=== PATIENT | male | born 1950 | race Caucasian/White ===

== ENCOUNTER → 2017-12-10 13:32 | Outpatient (CLI) | payer MEDICARE, MEDICAID, SELFPAY ==
[2017-12-10 15:15] LABS: AST(SGOT) 17 U/L (15-37); Alanine Aminotransfer ALT/SGPT 24 U/L (16-61); Albumin, Serum 3.7 g/dL (3.2-5.0); Alkaline Phosphatase 96 U/L (45-117); Bilirubin, Direct 0.23 mg/dL (0.00-0.30); Cholesterol 93 mg/dL (200); Globulin 2.9 g/dL (2.2-4.2); High Density Lipoprotein 49 mg/dL; Protein, Total 6.6 g/dL (6.4-8.2); Triglycerides 50 mg/dL; Very Low Density Lipoprotein 10 mg/dL (5-40)
== END ==
PROVIDERS: Visit Provider Internal Medicine Cardiovascular Disease
DX: I25.110 Atherosclerotic heart disease of native coronary artery with unstable angina pectoris (principal)
CPT/HCPCS: 36415; 80061; 80076

== ENCOUNTER 2017-12-20 02:47 | Inpatient (IN) | payer MEDICARE, MEDICAID, SELFPAY ==
[2017-12-20] VITALS (31 sets, daily range): BP systolic 95–214; BP diastolic 43–114; PULSE 75–146; RESP 12–35; TEMP 36.6–38.4; O2SAT 66–99; BMI 17.1; BMI 17.2
--- NOTE | 2017-12-20 02:50 | EKG12_ITS ---
Test Reason : SOB Blood Pressure : / mmHG Vent. Rate : 106 BPM Atrial Rate : 106 BPM P-R Int : 180 ms QRS Dur : 082 ms QT Int : 330 ms P-R-T Axes : 081 -56 073 degrees QTc Int : 438 ms Sinus tachycardia Left axis deviation Abnormal ECG Confirmed by BELKYS ABRAHAM, BAILEY ([id number]), assistant production editor CRISTO SANTOS ([id number] on 12/22/2017 1:45:08 PM Referred By: Aj Jimenez Confirmed By:BAILEY RIZVI MD
--- NOTE | 2017-12-20 02:54 | ED.DCSUM_ITS ---
- ER Visit Summary Date of Service: 12/20/17 Chief Complaint: Shortness of breath History of Present Illness: The patient is a 67 M with history of emphysema, Crohn's disease, hypertension, and GERD resents to the emergency department with shortness of breath. The patient does not on oxygen at home. He states over the past 2-3 days, has had gradually worsening shortness of breath. He does describe productive cough with sputum. He is also had fevers and chills. He states he has had chest tightness and just feels like he cannot breathe. Patient does follow with Dr. Ocampo for pulmonology. He does see Dr. Jimenez for cardiology. He does continue to smoke. He denies any recent sick contacts. He is unsure of the last time he was on steroids for his breathing. Physical Examination: Vital signs reviewed General: Well-nourished, well-developed, moderate to severe respiratory distress Head: Normocephalic, atraumatic Eyes: Pupils equal and reactive, extraocular muscles intact Neck, supple, no lymphadenopathy Heart: Regular tachycardia Respiratory: Diminished with wheezing and accessory muscle use throughout Abdomen: Soft, nontender, nondistended, no peritoneal signs Back: Nontender Extremities: Nontender, no edema, no cords Skin: Normal color no rash Neuro: Alert and oriented, no focal or lateralizing deficits Test Results: ABG shows mild hypercapnia, but normal pH. Screening labs are unremarkable. EKG shows sinus tachycardia but no acute ischemia. Chest x-ray shows chronic fibrosis. Emergency Department Course and Treatment: Patient presents with significant hypoxia. On arrival, his pulse ox was 66%. He had increased work of breathing with significant tachypnea and diminished air movement. Patient was placed immediately on BiPAP. ABG was obtained which is relatively unremarkable. There is evidence of no significant respiratory acidosis. With BiPAP and breathing treatments the patient's aeration had improved. His x-ray does not show focal infiltrate, but given his change in sputum fevers and chills the patient will be covered with Levaquin. Labs are obtained and relatively unremarkable. The patient is much more comfortable on BiPAP. At this time, he will be admitted to the ICU. Patient was discussed with the hospitalist. Treatment Plan: [] Disposition: Admit Impression: 1. Acute respiratory failure 2. COPD exacerbation This note was generated with High[employer] software. It may contain incorrect words, spelling, and punctuation that were not noted in review of the chart prior to signing ED Disposition - Plan for ED Patient: Chief Complaint: Shortness of Breath Referrals: Care Physician,No Primary [NON-STAFF] -
--- NOTE | 2017-12-20 02:54 | ED.RN ---
PT PLACED ON BIPAP
[2017-12-20] MEDS: Albuterol 2.5 MG/3 ML VIAL.NEB. INHALATION ×3 (03:04→03:06)
[2017-12-20] MEDS: Ipratropium/Albuterol Sulfate 3 ML AMPUL.NEB INHALATION ×3 (03:04→13:05)
--- NOTE | 2017-12-20 03:10 | RAD_ITS ---
STUDY: X-RAY CHEST REASON FOR EXAM: Male, 67 years old. Shortness of breath. TECHNIQUE: AP portable chest. COMPARISON: August 04, 2016. FINDINGS: The lungs are hyperinflated. Fibrosis right upper lobe and right cardiophrenic angle new since the prior study. No effusions. No pneumothorax. Normal size heart. Normal mediastinum and alo. Normal visualized pulmonary arteries. Normal visualized aortic arch and descending thoracic aorta. Normal visualized thoracic spine. Normal visualized ribs, clavicles, and shoulders. There is no demonstrated abnormality of the visualized soft tissue structures of the upper abdomen. RAD/Chest 1 View (Portable) IMPRESSION: COPD. Progression of chronic interstitial lung disease. Electronically Signed: Tanner Bronson MD at 3:30 EST , Service support ,
[2017-12-20 03:14] LABS: Absolute Lymphocyte Count 1.14 X10^3/ul (0.83-4.51); Absolute Neutrophil Count 6.4 X10^3/uL (2.0-7.7); Basophil# 0.02 X10^3/uL; Basophil% 0.2 % (0-1); Eosinophils% 1.2 % (0-5); Hematocrit 40.3 % (40-54); Hemoglobin 13.2 g/dl (13.0-16.5); Lymphocyte # 1.14 X10^3/ul (4.0); Lymphocyte % 14.1 % (19-41); Mean Corp Hgb Conc 32.8 g/gl (32-36); Mean Corpuscular Hgb 29.4 pg (27.0-32.0); Mean Corpuscular Volume 89.8 fL (80-94); Mean Platelet Vol. 10.4 fl (6.2-12.0); Monocyte# 0.45 X10^3/uL; Monocyte% 5.6 % (0-10); Neutrophil # 6.35 X10^3/uL (2.7-7.7); Neutrophil % 78.8 % (47-70); Platelet Count 159 K/mm3 (150-450); RBC Distribution Width CV 12.9 % (11.6-14.6); RBC Distribution Width SD 42.1 fl (35.1-43.9); Red Blood Count 4.49 M/mm3 (4.6-6.2); White Blood Count 8.1 K/mm3 (4.4-11.0)
[2017-12-20] MEDS: MethylPREDNISolone 125 MG/2 ML Vial IV (03:19)
[2017-12-20] MEDS: 0.9% Normal Saline 1,000 ML 150 ML IV (03:20)
[2017-12-20 03:21] LABS: Allen Test POS; Base Excess 0 mmol/L (-2 to +2); Bicarbonate 25.7 mmol/L (22-26); Blood Gas Specimen Type ART; EPAP 6; FI02 35; IPAP 12; PO2 80 mmHG (75-100); RR 12; SITE L Radial; SO2 95 % (95-99); Time Given 312; Total Carbon Dioxide 27 mmol/L; pCO2 48.7 mmHg (35-45); pH 7.33 (7.35-7.45)
[2017-12-20 03:22] LABS: POSITIVE COUNT NO; POSITIVE DIFFERENTIAL NO; POSITIVE MORPHOLOGY NO
[2017-12-20 03:28] LABS: Anion Gap 10 (5-15); BUN 26 mg/dL (7-18); BUN/Creat Ratio 14.1 RATIO (10-20); Calcium,Total 9.1 mg/dL (8.5-10.1); Chloride 101 mmol/L (98-107); Creatinine, Serum 1.85 mg/dL (0.70-1.30); EST Glomerular Filtration Rate 39 mL/min (>60); Est Glom Filt Rate - Afr Amer 47 mL/min (>60); Estimated Creatinine Clearance 25.27 ml/min; Glucose 135 mg/dL (74-106); Potassium 3.9 mmol/L (3.5-5.1); Sodium Level 139 mmol/L (136-145)
[2017-12-20 03:53] LABS: BNP,B-Type NATRIURETIC PEPTIDE 64.4 pg/mL (0-100)
[2017-12-20 04:10] LABS: Lactic Acid 2.7 mmol/L (0.4-2.0)
--- NOTE | 2017-12-20 04:19 | HP.PCM_ITS ---
Problem List (1) CKD (chronic kidney disease) stage 4, GFR 15-29 ml/min Status: Chronic Comment: Following with Dr. Chapman (2) COLD (chronic obstructive lung disease) Status: Chronic (3) Hypertension Status: Chronic (4) Nicotine abuse Status: Chronic History of Present Illness Date of Admission: 12/20/17 Chief Complaint: Acute respiratory failure The patient is a 67 year old male w/ h/o CKD IV, HTN, COPD and CAD admitted for acute respiratory failure. PT has been having SOB x 2-3 days. His SOB has been worsening. Nothing appeared to make it better or worse. His SOB is so severe that it interfered with his ADLs today. He has a productive cough. The intensity and frequency of the cough have worsened. No fever or chill. No change in weight. No sick contact. Past Medical History Past Medical History (Chronic Problems): Chronic Problems (Last Reviewed 11/25/17 @ 14:18 by Marjorie Cárdenas) Non-rheumatic tricuspid valve insufficiency (Chronic) Atherosclerosis of coronary artery of [place] heart without angina pectoris ( Chronic) Nicotine abuse (Chronic) Hypertension (Chronic) COLD (chronic obstructive lung disease) (Chronic) CKD (chronic kidney disease) stage 4, GFR 15-29 ml/min (Chronic) Following with Dr. Chapman Allergies Penicillins Adverse Reaction (Verified 11/25/17 14:18) Other Home Medications: Ambulatory Orders Medication Instructions Recorded Albuterol Aerosols [Ventolin 2.5 mg INHALATION Q4H PRN PRN 01/17/15 Aerosols] Budesonide/Formoterol 160/4.5 1 puff INHALATION DAILY 01/17/15 [Symbicort 160/4.5 Mcg Inhaler (SP)] Loperamide [Imodium] 2 mg PO DAILY 01/17/15 Tiotropium [place] [Spiriva 18 MCG] 1 puff INHALATION DAILY 08/12/16 atorvastatin 20 mg tablet 20 mg PO QDAY #30 tab 11/25/17 lisinopril 5 mg tablet 5 mg PO QDAY #30 tab 11/25/17 Mesalamine [Pentasa] 500 mg PO DAILY 12/20/17 Surgical History: - - left carpal tunnel, L ureteral stent for obstructed stone and removal 07/2013, partial bowel resection Smoking Status: Former smoker - *Family History Paternal History Items: - - Denies family history of coronary artery disease Sibling History Items: Cancer - colon, COPD Review of Systems Constitutional: Denies: Chills, Fever, Weight Change HEENT: Denies: Head Aches, Sinus Congestion, Sinus Drainage Cardiovascular: Denies: Chest Pain, Palpitations Respiratory: Reports: Cough, Shortness of Breath, Shortness of breath at rest, Sputum production, Wheezing Gastrointestinal: Denies: Abdominal Pain, Nausea, Vomiting Genitourinary: Denies: Dysuria Musculoskeletal: Denies: Joint Pain, Joint Tenderness Skin: Denies: Rash, Wounds Neurological: Denies: Numbness, Tingling, Focal weakness Psychiatric: Denies: Anxiety, Depression, Homicidal Ideations, Suicidal Ideations Hematologic/ Lymphatic: Denies: Easy Bruising, Easy Bleeding VTE Information - Inpt Only VTE Present on Admission: No VTE Mechan Device Prophylaxis: SCD's VTE Pharm Prophylaxis ordered?: Yes - Physical Exam General: Alert, Oriented x3, Cooperative HEENT: Atraumatic, PERRLA, EOMI, Normocephalic Neck: Supple, No JVD, Negative Carotid Bruits Lungs: Diminished, Rales, Short of Breath, Wheezes Cardiovascular: Regular rate, No murmurs Abdomen: Bowel Sounds Present, Soft, Non Tender Extremities: No edema, Capillary Refill Less than 3 Seconds Skin: No rashes, No breakdown Musculoskeletal: No Tenderness to Palpation of Joints or Extremities Neurological: Cranial nerves II-XII grossly intact Psych/Mental Status: Normal Affect, Appropriate Vital Signs Temp Pulse Resp BP Pulse Ox 98.0 F 106 H 26 H 167/105 H 96 12/20/17 02:47 12/20/17 03:05 12/20/17 03:05 12/20/17 03:30 12/20/17 03:30 Oxygen Flow Rate 6 Oxygen Delivery Method Bi-pap Weight: 47.4 kg Body Mass Index (BMI) 17.1 Microbiology Past 72 Hours 12/20/17 03:30 Influenza Types A,B Direct FA (EDGAR) - Final Mucosa - Nasopharyngeal Laboratory Tests Past 24 Hrs 12/20/17 12/20/17 12/20/17 02:55 02:55 02:55 WBC 8.1 RBC 4.49 L Hgb 13.2 Hct 40.3 MCV 89.8 MCH 29.4 MCHC 32.8 RDW 12.9 RDW Differential 42.1 Plt Count 159 MPV 10.4 Immature Gran % (Auto) 0.100 Neut % (Auto) 78.8 H Lymph % (Auto) 14.1 L [place] % (Auto) 5.6 Eos % (Auto) 1.2 Baso % (Auto) 0.2 Absolute Neuts (auto) 6.4 Absolute Lymphs (auto) 1.14 Total Counted Not Reportable Specimen Type Sample Site pH Bicarbonate Actual POC Total CO2 Base Excess O2 Saturation O2 % ABG pCO2 ABG pO2 Bc Test Respiration Rate O2 Delivery Device EPAP IPAP Blood Gas Notified Whom Blood Gas Notified Time Sodium 139 Potassium 3.9 Chloride 101 Carbon Dioxide 28.0 Anion Gap 10 BUN 26 H Creatinine 1.85 H Estim Creat Clear Calc 25.27 Est GFR (MDRD) Af Amer 47 L Est GFR (MDRD) Non-Af 39 L BUN/Creatinine Ratio 14.1 Glucose 135 H Lactic Acid 2.7 H Calcium 9.1 Troponin I < 0.02 B-Natriuretic Peptide 12/20/17 12/20/17 02:55 03:16 WBC RBC Hgb Hct MCV MCH MCHC RDW RDW Differential Plt Count MPV Immature Gran % (Auto) Neut % (Auto) Lymph % (Auto) [place] % (Auto) Eos % (Auto) Baso % (Auto) Absolute Neuts (auto) Absolute Lymphs (auto) Total Counted Specimen Type ART Sample Site L Radial pH 7.33 L Bicarbonate Actual 25.7 POC Total CO2 27 Base Excess 0 O2 Saturation 95 O2 % 35 ABG pCO2 48.7 H ABG pO2 80 Bc Test POS Respiration Rate 12 O2 Delivery Device Bi / C PAP EPAP 6 IPAP 12 Blood Gas Notified Whom ED MD Blood Gas Notified Time 312 Sodium Potassium Chloride Carbon Dioxide Anion Gap BUN Creatinine Estim Creat Clear Calc Est GFR (MDRD) Af Amer Est GFR (MDRD) Non-Af BUN/Creatinine Ratio Glucose Lactic Acid Calcium Troponin I B-Natriuretic Peptide 64.4 Assessment/Plan 67 year old male w/ h/o CKD IV, HTN, COPD and CAD admitted for acute respiratory failure. 1) Acute respiratory failure secondary to COPD exacerbation.: Currently on bipap. C/w with bipap. Will start solumedrol and bronchodilators. C/w levaquin. Chest xray unremarkable No leukocytosis. Cultures pending. Consult pulmonary. 2) CKD IV: C/w supportive care. Will renal dose meds. Avoid nephrotoxic drugs. Surveillance labs 3) Chronic issues: CAD and HTN: Resume home meds. Monitor. 4) Prophylaxis: SCD / heparin.
--- NOTE | 2017-12-20 04:22 | ED.RN ---
lab called with critical lab results. lactic acid 2.7. Dr. Lopez made aware. no new orders at this time
--- NOTE | 2017-12-20 07:02 | CON.PCM_ITS ---
Reason for Consult Date of Consultation: 12/20/17 Reason for Consultation: COPD exacerbation History of Present Illness: The patient is a 67-year-old male, with a history as outlined below, who presented to the emergency department on December 20 with complaints of shortness of breath, that was progressive in nature over 3 days, along with a productive cough. The patient does have end-stage COPD, based upon pulmonary function testing last completed in October 2015. He currently follows with Dr. Ocampo on an outpatient basis. The patient's last FEV1 was noted to be less than 1L (30% of predicted). He does have dynamic hyperinflation and air- trapping. Surface echocardiogram last completed in December 2014 revealed normal LV size with an ejection fraction of 60%. Pulmonary artery systolic pressure at that time was estimated to be 41 mmHg. The patient was last seen in the pulmonary medicine clinic in May 2016. He subsequently no showed for a follow-up appointment in August 2016. The patient also has a history of coronary artery disease, for which she follows with Dr. Jimenez on an outpatient basis. The patient states that he was lost to follow-up with Dr. Ocampo, as he stated that he did not like having to undergo stress testing that was ordered by him. Therefore, he decided to stop following with him. He does currently follow with Dr. Rodríguez. He states that he is on a triple therapy inhaler regimen with Symbicort and Spiriva. However, he ran out of his Symbicort 5 days ago. On presentation to the emergency department, the patient was noted to be afebrile, tachycardic and tachypneic. He was reportedly hypoxic, requiring high flow supplemental oxygen and eventual BiPAP therapy. The patient was also exceedingly hypertensive with a blood pressure documented to be 214/114. Laboratory evaluation revealed no evidence of a leukocytosis. Chemistry profile was notable only for chronic kidney disease with a creatinine 1.85. Serum lactate was mildly elevated 2.7. Both BNP and troponin were negative. Plain film chest x-ray showed no acute infiltrative process, with the exception of hyperinflated lung p[place]co. The patient was given aerosol treatments, steroids and antibiotics. Due to the use of noninvasive positive pressure ventilation, the patient was transferred to the medical intensive care unit for ongoing management. Past Medical History Past Medical History (Chronic Problems): Chronic Problems (Last Reviewed 11/25/17 @ 14:18 by Marjorie Kilner) Non-rheumatic tricuspid valve insufficiency (Chronic) Atherosclerosis of coronary artery of [place] heart without angina pectoris ( Chronic) Nicotine abuse (Chronic) Hypertension (Chronic) COLD (chronic obstructive lung disease) (Chronic) CKD (chronic kidney disease) stage 4, GFR 15-29 ml/min (Chronic) Following with Dr. Chapman Allergies Penicillins Adverse Reaction (Verified 11/25/17 14:18) Other Home Medications: Ambulatory Orders Medication Instructions Recorded Albuterol Aerosols [Ventolin 2.5 mg INHALATION Q4H PRN PRN 01/17/15 Aerosols] Budesonide/Formoterol 160/4.5 1 puff INHALATION DAILY 01/17/15 [Symbicort 160/4.5 Mcg Inhaler (SP)] Loperamide [Imodium] 2 mg PO DAILY 01/17/15 Tiotropium [place] [Spiriva 18 MCG] 1 puff INHALATION DAILY 08/12/16 atorvastatin 20 mg tablet 20 mg PO QDAY #30 tab 11/25/17 lisinopril 5 mg tablet 5 mg PO QDAY #30 tab 11/25/17 Mesalamine [Pentasa] 500 mg PO DAILY 12/20/17 Surgical History: - - left carpal tunnel, L ureteral stent for obstructed stone and removal 07/2013, partial bowel resection Smoking Status: Former smoker - *Family History Paternal History Items: - - Denies family history of coronary artery disease Sibling History Items: Cancer - colon, COPD Review of Systems Constitutional: Denies: Chills, Fever, Night Sweats Eyes: Denies: Blurred vision, Double vision HEENT: Denies: Head Aches, Sinus Congestion, Sinus Drainage Cardiovascular: Denies: Chest Pain, Palpitations Respiratory: Reports: Cough, Shortness of Breath, Sputum production Gastrointestinal: Denies: Abdominal Pain, Nausea, Vomiting Genitourinary: Denies: Dysuria Musculoskeletal: Denies: Joint Pain, Joint Tenderness Skin: Denies: Rash, Wounds Neurological: Denies: Numbness, Tingling, Focal weakness Psychiatric: Denies: Anxiety, Depression, Homicidal Ideations, Suicidal Ideations Hematologic/ Lymphatic: Denies: Easy Bruising, Easy Bleeding Objective: The patient's most recent lab work, culture data and imaging studies have all been personally reviewed. Rapid influenza screen was negative. Blood and sputum cultures are pending. - Physical Exam General: Alert, Cooperative, No apparent distress HEENT: Atraumatic, PERRLA, Normocephalic Oral: Moist Mucosa, No Gingival or Mucosal Lesions/ Ulcerations Neck: Supple, No Nodes, Trachea Midline Lungs: No rhonchi, No rales, Diminished, Wheezes Cardiovascular: Normal S1, Normal S2, No murmurs, No rub noted, No Gallop, Tachycardic Abdomen: Bowel Sounds Present, Soft, Non Tender Extremities: No cyanosis, No edema, Clubbing Skin: No rashes, No breakdown Musculoskeletal: No Tenderness to Palpation of Joints or Extremities, Cachexia, Muscle Wasting Lymphatic: No Cervical, Supraclavicular, or Inguinal Adenopathy Neurological: Neuro grossly intact Psych/Mental Status: Normal Affect, Appropriate Vital Signs Temp Pulse Resp BP Pulse Ox 101.1 F H 109 H 16 149/84 H 96 12/20/17 06:00 12/20/17 06:41 12/20/17 06:41 12/20/17 06:00 12/20/17 06:41 Oxygen Flow Rate 2 Oxygen Delivery Method Nasal Cannula Weight: 104 lb 15.04 oz Body Mass Index (BMI) 17.2 Intake and Output for Last 24 Hours 12/18/17 12/19/17 12/20/17 23:59 23:59 23:59 Intake Total 167 / 167 Balance 167 / 167 Laboratory Tests Past 24 Hrs 12/20/17 04:50 MRSA (PCR) Pending Labs (Last 48 Hours) 12/20/17 12/20/17 12/20/17 02:55 02:55 02:55 WBC 8.1 RBC 4.49 L Hgb 13.2 Hct 40.3 MCV 89.8 MCH 29.4 MCHC 32.8 RDW 12.9 RDW Differential 42.1 Plt Count 159 MPV 10.4 Immature Gran % (Auto) 0.100 Neut % (Auto) 78.8 H Lymph % (Auto) 14.1 L [place] % (Auto) 5.6 Eos % (Auto) 1.2 Baso % (Auto) 0.2 Absolute Neuts (auto) 6.4 Absolute Lymphs (auto) 1.14 Total Counted Not Reportable Specimen Type Sample Site pH Bicarbonate Actual POC Total CO2 Base Excess O2 Saturation O2 % ABG pCO2 ABG pO2 Bc Test Respiration Rate O2 Delivery Device EPAP IPAP Blood Gas Notified Whom Blood Gas Notified Time Sodium 139 Potassium 3.9 Chloride 101 Carbon Dioxide 28.0 Anion Gap 10 BUN 26 H Creatinine 1.85 H Estim Creat Clear Calc 25.27 Est GFR (MDRD) Af Amer 47 L Est GFR (MDRD) Non-Af 39 L BUN/Creatinine Ratio 14.1 Glucose 135 H Lactic Acid 2.7 H Calcium 9.1 Troponin I < 0.02 B-Natriuretic Peptide MRSA (PCR) 12/20/17 12/20/17 12/20/17 02:55 03:16 04:50 WBC RBC Hgb Hct MCV MCH MCHC RDW RDW Differential Plt Count MPV Immature Gran % (Auto) Neut % (Auto) Lymph % (Auto) [place] % (Auto) Eos % (Auto) Baso % (Auto) Absolute Neuts (auto) Absolute Lymphs (auto) Total Counted Specimen Type ART Sample Site L Radial pH 7.33 L Bicarbonate Actual 25.7 POC Total CO2 27 Base Excess 0 O2 Saturation 95 O2 % 35 ABG pCO2 48.7 H ABG pO2 80 Bc Test POS Respiration Rate 12 O2 Delivery Device Bi / C PAP EPAP 6 IPAP 12 Blood Gas Notified Whom ED Blood Gas Notified Time 312 Sodium Potassium Chloride Carbon Dioxide Anion Gap BUN Creatinine Estim Creat Clear Calc Est GFR (MDRD) Af Amer Est GFR (MDRD) Non-Af BUN/Creatinine Ratio Glucose Lactic Acid Calcium Troponin I B-Natriuretic Peptide 64.4 MRSA (PCR) Pending Microbiology 12/20/17 03:30 Mucosa - Nasopharyngeal Influenza Types A,B Direct FA (EDGAR) - Final Clinical Impression(s) from Imaging Studies Chest X-Ray 12/20/17 03:10 IMPRESSION: COPD. Progression of chronic interstitial lung disease. Electronically Signed: Tanner Bronson MD at 3:30 EST , Service support , Assessment/Plan RECOMMENDATIONS: 1. Continue scheduled aerosol treatments 2. Wean supplemental oxygen to maintain saturations at or above 90% 3. Continue antibiotics and steroids 4. Encourage incentive spirometer use and mobilize patient as tolerated 5. Perform walking oximetry study prior to consideration for discharge from the hospital. 6. Obtain and send a full respiratory viral panel IMPRESSIONS: 1. Acute hypoxemic respiratory failure due to COPD with exacerbation Unclear etiology for the patient's exacerbation. He does not have what appears to be an acute infiltrative process on chest imaging. However, antibiotics will be continued pending finalized sputum culture results. We will plan to check a full respiratory viral panel. The patient does admit that he has been out of his maintenance inhaler medications ?5 days, which may have led to his current clinical state. We will plan to continue scheduled aerosol treatments along with IV steroids. If the patient does well over the next 24 hours, he will be transitioned to prednisone by mouth. Wean supplemental oxygen as tolerated. The patient will undoubtedly need to follow-up in the pulmonary medicine clinic, as he has not been seen by Dr. Ocampo since 2016. 2. Chronic kidney disease The patient's creatinine appears to be baseline. Urine output is appropriate. No indication for renal replacement therapy at this time. 3. Coronary artery disease/Crohn's disease/hypertension Complicates care, management, recovery and prognosis. Continue home medications as indicated. This note was generated with [employer] dictation software. It may contain incorrect words, spelling, and punctuation that were not noted in checking the note before signing. DISPOSITION: The patient is medically stable for transfer out of the intensive care unit. Code Visit Inpatient E&M: 30119 Init Hosp L3
[2017-12-20 07:06] LABS: Reflex Lactate? Y
--- NOTE | 2017-12-20 07:38 | PCM.PN.HOSP ---
Subjective: 67-year-old gentleman with past medical history significant for CKD stage IV hypertension COPD admitted with progressive shortness of breath and assessment of acute hypoxic respiratory failure secondary to COPD exacerbation made started on BiPAP admitted to the intensive care unit Objective: GENERAL: cooperative HEENT: neck is supple, normal thyroid, CHEST: Diminished to auscultation bilaterally, HEART: Regular S1 S2, ABDOMEN: soft, non-tender, normoactive bowel sounds, RECTAL: deferred EXTREMITIES: Skin is cyanotic [employer]: Awake, without lateralizing signs SKIN: Above Vitals/I&O's: Vital Signs Temp Pulse Resp BP Pulse Ox 101.1 F H 109 H 16 149/84 H 96 12/20/17 06:00 12/20/17 06:41 12/20/17 06:41 12/20/17 06:00 12/20/17 06:41 Oxygen Flow Rate 2 Oxygen Delivery Method Nasal Cannula Weight: 47.6 kg Body Mass Index (BMI) 17.2 Intake and Output for Last 24 Hours 12/18/17 12/19/17 12/20/17 23:59 23:59 23:59 Intake Total 167 / 167 Balance 167 / 167 Laboratory Results 12/20/17 04:50: MRSA (PCR) Pending 12/20/17 07:30: Lactic Acid Pending Current Medications Albuterol Sulfate (Ventolin Aerosols) 2.5 mg INHALATION Q2H PRN PRN PRN Reason: SHORTNESS OF BREATH Albuterol/Ipratropium (Duoneb) 3 ml INHALATION Q6HWA.RT [facility] Last Admin: 12/20/17 06:39 Dose: 3 ml Atorvastatin Calcium (Lipitor) 20 mg PO QHS [facility] Heparin Sodium (Porcine) (Heparin Na) 5,000 unit SC Q8 [facility] Last Admin: 12/20/17 06:21 Dose: 5,000 u Levofloxacin (Levaquin) 250 mg in 50 mls @ 50 mls/hr IV Q24 [facility] Influenza Virus Vaccine Quadrival (Fluarix/Fluzone) 0.5 ml IM .ONCE ONE Stop: 12/20/17 10:01 Lisinopril (Zestril) 5 mg PO DAILY [facility] Loperamide HCl (Imodium) 2 mg PO DAILY [facility] Mesalamine (Pentasa) 500 mg PO DAILY [facility] Methylprednisolone (Solu-Medrol) 40 mg IV Q8 [facility] Assessment/Plan 67-year-old gentleman with past medical history significant for CKD stage IV hypertension COPD admitted with progressive shortness of breath and assessment of acute hypoxic respiratory failure secondary to COPD exacerbation made started on BiPAP admitted to the intensive care unit 1. Acute hypoxic and hypercapnic respiratory failure secondary to COPD with exacerbation admitted to the intensive care unit with consultation placed a pulmonary medicine patient placed on noninvasive ventilation BiPAP in addition to bronchodilator treatment steroid as well as antibiotics 2. CKD stage IV 3. Hypertension-blood pressure controlled, home medications continued with dose adjustment as needed 4. CAD per history 5. Generalized osteoarthritis 6. DVT prophylaxis SC heparin
--- NOTE | 2017-12-20 08:30 | CPS ---
Pt refuses to do PEP.
[2017-12-20] MEDS: Mesalamine 1.2 GM Tablet 2.4 GM PO (11:02)
[2017-12-20] MEDS: Lisinopril 5 MG Tablet PO (11:02)
[2017-12-20] MEDS: levoFLOXacin 250 MG Tablet PO (11:03)
--- NOTE | 2017-12-20 12:21 | CASEMGMT ---
NORMA CM Assessment. DC Plan home. Pt states he lives with friend. Reports being independent, drives and is able to pay for his prescriptions. -pt had appt today with dr Marcos RNCM called to cancel. -does not wear Home O2. Presently is on 2L NC and 98%. Jessie SEGOVIAN RN ACM
--- NOTE | 2017-12-20 19:22 | CPS ---
Pt continues to refuse to do PEP Therapy. States its to strong for his lungs.
[2017-12-20] MEDS: Atorvastatin Calcium 20 MG Tablet PO (20:50)
[2017-12-20 23:12] LABS: M R Staph aureus DNA By PCR Negative (Negative); Probe Check PASS; Specimen Processing Control PASS
[2017-12-21] VITALS (10 sets, daily range): BP systolic 113–143; BP diastolic 61–76; PULSE 82–99; RESP 16–20; TEMP 36.8–37.5; O2SAT 88–98
[2017-12-21] MEDS: Ipratropium/Albuterol Sulfate 3 ML AMPUL.NEB INHALATION ×4 (00:02→18:40)
[2017-12-21] MEDS: levoFLOXacin 250 MG Tablet PO (05:40)
--- NOTE | 2017-12-21 06:32 | PN_ITS ---
Subjective: The patient was seen and examined at the bedside this morning. Events from the last 24 hours have been reviewed. The patient is currently afebrile, hemodynamically stable and maintaining appropriate oxygen saturations on 2 L/ min via nasal cannula. Shortness of breath has improved. However, cough persists. Objective: The patient's most recent lab work, culture data and imaging studies have all been personally reviewed. Respiratory viral panel was negative. Blood cultures are pending. Sputum culture is pending. General: Alert, Cooperative, No apparent distress HEENT: Atraumatic, PERRLA, Normocephalic Oral: Moist Mucosa, No Gingival or Mucosal Lesions/ Ulcerations Neck: Supple, No Nodes, Trachea Midline Lungs: No rhonchi, No wheeze, No rales, Diminished, - - Increased AP diameter Cardiovascular: Regular rate, Regular Rhythm, Normal S1, Normal S2, No murmurs Abdomen: Bowel Sounds Present, Soft, Non Tender, Non-Distended Extremities: No cyanosis, No edema, Clubbing Skin: No rashes, No breakdown Musculoskeletal: No Tenderness to Palpation of Joints or Extremities, Cachexia, Muscle Wasting Lymphatic: No Cervical, Supraclavicular, or Inguinal Adenopathy Neurological: Neuro grossly intact Psych/Mental Status: Normal Affect, Appropriate Vital Signs Temp Pulse Resp BP Pulse Ox 98.2 F 84 19 H 113/66 98 12/21/17 01:45 12/21/17 03:00 12/21/17 01:45 12/21/17 01:45 12/21/17 01:51 Oxygen Flow Rate 2 Oxygen Delivery Method Nasal Cannula Weight: 104 lb 15.04 oz Body Mass Index (BMI) 17.2 Intake and Output for Last 24 Hours 12/19/17 12/20/17 12/21/17 23:59 23:59 23:59 Intake Total 1297 / 1297 120 / 120 Output Total 425 / 425 Balance 872 / 872 120 / 120 Labs (Last 48 Hours) 12/20/17 12/20/17 04:50 07:30 Lactic Acid 1.0 MRSA (PCR) Negative Microbiology 12/20/17 06:00 Sputum, Expectorated/Coughed Gram Stain - Final 12/20/17 07:09 Mucosa - Nose Respiratory Panel (PCR) - Final Labs (Last 48 Hours) 12/20/17 12/20/17 12/20/17 02:55 02:55 02:55 WBC 8.1 RBC 4.49 L Hgb 13.2 Hct 40.3 MCV 89.8 MCH 29.4 MCHC 32.8 RDW 12.9 RDW Differential 42.1 Plt Count 159 MPV 10.4 Immature Gran % (Auto) 0.100 Neut % (Auto) 78.8 H Lymph % (Auto) 14.1 L [place] % (Auto) 5.6 Eos % (Auto) 1.2 Baso % (Auto) 0.2 Absolute Neuts (auto) 6.4 Absolute Lymphs (auto) 1.14 Total Counted Not Reportable Specimen Type Sample Site pH Bicarbonate Actual POC Total CO2 Base Excess O2 Saturation O2 % ABG pCO2 ABG pO2 Bc Test Respiration Rate O2 Delivery Device EPAP IPAP Blood Gas Notified Whom Blood Gas Notified Time Sodium 139 Potassium 3.9 Chloride 101 Carbon Dioxide 28.0 Anion Gap 10 BUN 26 H Creatinine 1.85 H Estim Creat Clear Calc 25.27 Est GFR (MDRD) Af Amer 47 L Est GFR (MDRD) Non-Af 39 L BUN/Creatinine Ratio 14.1 Glucose 135 H Lactic Acid 2.7 H Calcium 9.1 Troponin I < 0.02 B-Natriuretic Peptide MRSA (PCR) 12/20/17 12/20/17 12/20/17 02:55 03:16 04:50 WBC RBC Hgb Hct MCV MCH MCHC RDW RDW Differential Plt Count MPV Immature Gran % (Auto) Neut % (Auto) Lymph % (Auto) [place] % (Auto) Eos % (Auto) Baso % (Auto) Absolute Neuts (auto) Absolute Lymphs (auto) Total Counted Specimen Type ART Sample Site L Radial pH 7.33 L Bicarbonate Actual 25.7 POC Total CO2 27 Base Excess 0 O2 Saturation 95 O2 % 35 ABG pCO2 48.7 H ABG pO2 80 Bc Test POS Respiration Rate 12 O2 Delivery Device Bi / C PAP EPAP 6 IPAP 12 Blood Gas Notified Whom ED MD Blood Gas Notified Time 312 Sodium Potassium Chloride Carbon Dioxide Anion Gap BUN Creatinine Estim Creat Clear Calc Est GFR (MDRD) Af Amer Est GFR (MDRD) Non-Af BUN/Creatinine Ratio Glucose Lactic Acid Calcium Troponin I B-Natriuretic Peptide 64.4 MRSA (PCR) Negative 12/20/17 07:30 WBC RBC Hgb Hct MCV MCH MCHC RDW RDW Differential Plt Count MPV Immature Gran % (Auto) Neut % (Auto) Lymph % (Auto) [place] % (Auto) Eos % (Auto) Baso % (Auto) Absolute Neuts (auto) Absolute Lymphs (auto) Total Counted Specimen Type Sample Site pH Bicarbonate Actual POC Total CO2 Base Excess O2 Saturation O2 % ABG pCO2 ABG pO2 Bc Test Respiration Rate O2 Delivery Device EPAP IPAP Blood Gas Notified Whom Blood Gas Notified Time Sodium Potassium Chloride Carbon Dioxide Anion Gap BUN Creatinine Estim Creat Clear Calc Est GFR (MDRD) Af Amer Est GFR (MDRD) Non-Af BUN/Creatinine Ratio Glucose Lactic Acid 1.0 Calcium Troponin I B-Natriuretic Peptide MRSA (PCR) Microbiology 12/20/17 06:00 Sputum, Expectorated/Coughed Gram Stain - Final 12/20/17 07:09 Mucosa - Nose Respiratory Panel (PCR) - Final 12/20/17 03:30 Mucosa - Nasopharyngeal Influenza Types A,B Direct FA (EDGAR) - Final Clinical Impression(s) from Imaging Studies Chest X-Ray 12/20/17 03:10 IMPRESSION: COPD. Progression of chronic interstitial lung disease. Electronically Signed: Tanner Bronson MD at 3:30 EST , Service support , Assessment/Plan RECOMMENDATIONS: 1. Continue scheduled aerosol treatments 2. Wean supplemental oxygen to maintain saturations at or above 90% 3. Continue antibiotics and steroids 4. Encourage incentive spirometer use and mobilize patient as tolerated 5. Perform walking oximetry study prior to consideration for discharge from the hospital. 6. Close outpatient pulmonary follow-up is recommended. IMPRESSIONS: 1. Acute hypoxemic respiratory failure due to COPD with exacerbation Unclear etiology for the patient's exacerbation. He does not have what appears to be an acute infiltrative process on chest imaging. However, antibiotics will be continued pending finalized sputum culture results. The patient does admit that he has been out of his maintenance inhaler medications ?5 days, which may have led to his current clinical state. We will plan to continue scheduled aerosol treatments along with steroids. Wean supplemental oxygen as tolerated. The patient will undoubtedly need to follow-up in the pulmonary medicine clinic, as he has not been seen by Dr. Ocampo since 2016. Perform walking oximetry study prior to consideration for discharge from the hospital. The patient will require refills of his baseline inhalers upon discharge, including Symbicort and Spiriva. 2. Chronic kidney disease The patient's creatinine appears to be baseline. Urine output is appropriate. No indication for renal replacement therapy at this time. 3. Coronary artery disease/Crohn's disease/hypertension Complicates care, management, recovery and prognosis. Continue home medications as indicated. This note was generated with [employer] dictation software. It may contain incorrect words, spelling, and punctuation that were not noted in checking the note before signing. Code Visit Inpatient E&M: 05618 Subs Hosp L2
--- NOTE | 2017-12-21 07:42 | PCM.PN.HOSP ---
Subjective: Seen clinical condition continues to improve he however has persistent cough Objective: GENERAL: cooperative HEENT: neck is supple, normal thyroid, CHEST: Diminished to auscultation bilaterally, HEART: Regular S1 S2, ABDOMEN: soft, non-tender, normoactive bowel sounds, RECTAL: deferred EXTREMITIES: Skin is cyanotic [employer]ER: Awake, without lateralizing signs SKIN: Above Vitals/I&O's: Vital Signs Temp Pulse Resp BP Pulse Ox 98.2 F 84 19 H 113/66 98 12/21/17 01:45 12/21/17 03:00 12/21/17 01:45 12/21/17 01:45 12/21/17 01:51 Oxygen Flow Rate 2 Oxygen Delivery Method Nasal Cannula Weight: 47.6 kg Body Mass Index (BMI) 17.2 Intake and Output for Last 24 Hours 12/19/17 12/20/17 12/21/17 23:59 23:59 23:59 Intake Total 1297 / 1297 120 / 120 Output Total 425 / 425 Balance 872 / 872 120 / 120 Microbiology Past 72 Hours 12/20/17 06:00 Sputum, Expectorated/Coughed Gram Stain - Final 12/20/17 07:09 Mucosa - Nose Respiratory Panel (PCR) - Final Laboratory Results 12/20/17 04:50: MRSA (PCR) Negative 12/20/17 07:30: Lactic Acid 1.0 Current Medications Albuterol Sulfate (Ventolin Aerosols) 2.5 mg INHALATION Q2H PRN PRN PRN Reason: SHORTNESS OF BREATH Albuterol/Ipratropium (Duoneb) 3 ml INHALATION Q6HWA.RT [facility] Last Admin: 12/21/17 06:51 Dose: 3 ml Atorvastatin Calcium (Lipitor) 20 mg PO QHS [facility] Last Admin: 12/20/17 20:50 Dose: 20 mg Heparin Sodium (Porcine) (Heparin Na) 5,000 unit SC Q8 [facility] Last Admin: 12/21/17 05:40 Dose: 5,000 u Levofloxacin (Levaquin) 250 mg PO DAILY@0600 [facility] Last Admin: 12/21/17 05:40 Dose: 250 mg Lisinopril (Zestril) 5 mg PO DAILY [facility] Last Admin: 12/20/17 11:02 Dose: 5 mg Loperamide HCl (Imodium) 2 mg PO 4X/DAY PRN PRN PRN Reason: DIARRHEA/LOOSE STOOLS Mesalamine (Lialda) 2.4 gm PO DAILY [facility] Last Admin: 12/20/17 11:02 Dose: 2.4 gm Methylprednisolone (Solu-Medrol) 40 mg IV Q8 [facility] Last Admin: 12/21/17 05:40 Dose: 40 mg Nutritional Formula (Lactose Free) (Ensure Enlive) 120 ml PO 4X/DAY [facility] Last Admin: 12/20/17 20:50 Dose: Not Given Sodium Chloride () 5 - 30 ml IV UD PRN PRN Reason: SALINE FLUSH Assessment/Plan 67-year-old gentleman with past medical history significant for CKD stage IV hypertension COPD admitted with progressive shortness of breath and assessment of acute hypoxic respiratory failure secondary to COPD exacerbation made started on BiPAP admitted to the intensive care unit 1. Acute hypoxic and hypercapnic respiratory failure secondary to COPD with exacerbation admitted to the intensive care unit with consultation placed a pulmonary medicine patient placed on noninvasive ventilation BiPAP in addition to bronchodilator treatment steroid as well as antibiotics; did adjust doses of steroids 2. CKD stage III 3. Hypertension-blood pressure controlled, home medications continued with dose adjustment as needed 4. CAD per history 5. Generalized osteoarthritis 6. DVT prophylaxis SC heparin Code Visit Inpatient E&M: 52637 Subs Hosp L2
--- NOTE | 2017-12-21 07:46 | PN_ITS ---
Subjective: Seen clinical condition continues to improve he however has persistent cough Objective: GENERAL: cooperative HEENT: neck is supple, normal thyroid, CHEST: Diminished to auscultation bilaterally, HEART: Regular S1 S2, ABDOMEN: soft, non-tender, normoactive bowel sounds, RECTAL: deferred EXTREMITIES: Skin is cyanotic MANAGER TERMINAL: Awake, without lateralizing signs SKIN: Above Vitals/I&O's: Vital Signs Temp Pulse Resp BP Pulse Ox 98.2 F 84 19 H 113/66 98 12/21/17 01:45 12/21/17 03:00 12/21/17 01:45 12/21/17 01:45 12/21/17 01:51 Oxygen Flow Rate 2 Oxygen Delivery Method Nasal Cannula Weight: 47.6 kg Body Mass Index (BMI) 17.2 Intake and Output for Last 24 Hours 12/19/17 12/20/17 12/21/17 23:59 23:59 23:59 Intake Total 1297 / 1297 120 / 120 Output Total 425 / 425 Balance 872 / 872 120 / 120 Microbiology Past 72 Hours 12/20/17 06:00 Sputum, Expectorated/Coughed Gram Stain - Final 12/20/17 07:09 Mucosa - Nose Respiratory Panel (PCR) - Final Laboratory Results 12/20/17 04:50: MRSA (PCR) Negative 12/20/17 07:30: Lactic Acid 1.0 Current Medications Albuterol Sulfate (Ventolin Aerosols) 2.5 mg INHALATION Q2H PRN PRN PRN Reason: SHORTNESS OF BREATH Albuterol/Ipratropium (Duoneb) 3 ml INHALATION Q6HWA.RT [facility] Last Admin: 12/21/17 06:51 Dose: 3 ml Atorvastatin Calcium (Lipitor) 20 mg PO QHS [facility] Last Admin: 12/20/17 20:50 Dose: 20 mg Heparin Sodium (Porcine) (Heparin Na) 5,000 unit SC Q8 [facility] Last Admin: 12/21/17 05:40 Dose: 5,000 u Levofloxacin (Levaquin) 250 mg PO DAILY@0600 [facility] Last Admin: 12/21/17 05:40 Dose: 250 mg Lisinopril (Zestril) 5 mg PO DAILY [facility] Last Admin: 12/20/17 11:02 Dose: 5 mg Loperamide HCl (Imodium) 2 mg PO 4X/DAY PRN PRN PRN Reason: DIARRHEA/LOOSE STOOLS Mesalamine (Lialda) 2.4 gm PO DAILY [facility] Last Admin: 12/20/17 11:02 Dose: 2.4 gm Methylprednisolone (Solu-Medrol) 40 mg IV Q8 [facility] Last Admin: 12/21/17 05:40 Dose: 40 mg Nutritional Formula (Lactose Free) (Ensure Enlive) 120 ml PO 4X/DAY [facility] Last Admin: 12/20/17 20:50 Dose: Not Given Sodium Chloride () 5 - 30 ml IV UD PRN PRN Reason: SALINE FLUSH Assessment/Plan 67-year-old gentleman with past medical history significant for CKD stage IV hypertension COPD admitted with progressive shortness of breath and assessment of acute hypoxic respiratory failure secondary to COPD exacerbation made started on BiPAP admitted to the intensive care unit 1. Acute hypoxic and hypercapnic respiratory failure secondary to COPD with exacerbation admitted to the intensive care unit with consultation placed a pulmonary medicine patient placed on noninvasive ventilation BiPAP in addition to bronchodilator treatment steroid as well as antibiotics; did adjust doses of steroids 2. CKD stage III 3. Hypertension-blood pressure controlled, home medications continued with dose adjustment as needed 4. CAD per history 5. Generalized osteoarthritis 6. DVT prophylaxis SC heparin Code Visit Inpatient E&M: 30196 Subs Hosp L2
--- NOTE | 2017-12-21 09:22 | CPS ---
PT CONTINUES TO REFUSE TO USE THE PEP. SAYS IT'S TOO HARD ON MY LUNGS
--- NOTE | 2017-12-21 09:23 | CPS ---
PT RESUSES TO USE THE PEP
--- NOTE | 2017-12-21 09:24 | CPS ---
PT STILL REFUSING TO USE PEP
[2017-12-21] MEDS: Lisinopril 5 MG Tablet PO (09:38)
[2017-12-21] MEDS: 0.9% NaCl Peripheral Flush Adult/Peds IV (09:38)
[2017-12-21] MEDS: Mesalamine 1.2 GM Tablet 2.4 GM PO (09:39)
[2017-12-21 09:51] LABS: Hematocrit 32.9 % (40-54); Hemoglobin 10.9 g/dl (13.0-16.5); Mean Corp Hgb Conc 33.1 g/gl (32-36); Mean Corpuscular Hgb 29.5 pg (27.0-32.0); Mean Corpuscular Volume 89.2 fL (80-94); Mean Platelet Vol. 10.8 fl (6.2-12.0); Platelet Count 117 K/mm3 (150-450); RBC Distribution Width SD 42.6 fl (35.1-43.9); Red Blood Count 3.69 M/mm3 (4.6-6.2)
[2017-12-21 09:58] LABS: Scan Indicated on CBC? Y/N NO
[2017-12-21 09:59] LABS: Anion Gap 10 (5-15); BUN 39 mg/dL (7-18); BUN/Creat Ratio 19.4 RATIO (10-20); Calcium,Total 8.7 mg/dL (8.5-10.1); Chloride 102 mmol/L (98-107); Creatinine, Serum 2.01 mg/dL (0.70-1.30); EST Glomerular Filtration Rate 35 mL/min (>60); Est Glom Filt Rate - Afr Amer 43 mL/min (>60); Estimated Creatinine Clearance 23.35 ml/min; Glucose 230 mg/dL (74-106); Magnesium 1.8 mg/dL (1.6-2.6); Potassium 4.1 mmol/L (3.5-5.1); Sodium Level 138 mmol/L (136-145)
[2017-12-21] MEDS: Atorvastatin Calcium 20 MG Tablet PO (21:05)
[2017-12-22] MEDS: Albuterol 2.5 MG/3 ML VIAL.NEB. INHALATION (01:03)
[2017-12-22 01:04] VITALS: PULSE 94; RESP 20
[2017-12-22 01:37] VITALS: BP 147/96; PULSE 101; RESP 18; TEMP 37.2; O2SAT 92
[2017-12-22] MEDS: levoFLOXacin 250 MG Tablet PO (05:43)
[2017-12-22] MEDS: 0.9% NaCl Peripheral Flush Adult/Peds IV (05:49)
--- NOTE | 2017-12-22 06:20 | PCM.PROGNOTE ---
Patient Problems: Active and Suspected Problems (Last Reviewed 11/25/17 @ 14:18 by Marjorie Cárdenas) COPD with acute exacerbation (Acute) Subjective: The patient was seen and examined at the bedside this morning. Events from the last 24 hours have been reviewed. The patient is currently afebrile, hemodynamically stable and maintaining appropriate oxygen saturations on room air. Cough continues but is overall improved. Objective: The patient's most recent lab work, culture data and imaging studies have all been personally reviewed. Respiratory viral panel was negative. Blood cultures have shown no growth to date. Expectorated sputum culture appears to be normal respiratory connie. - Physical Exam General: Alert, Cooperative, No apparent distress HEENT: Atraumatic, PERRLA, Normocephalic Oral: Moist Mucosa, No Gingival or Mucosal Lesions/ Ulcerations Neck: Supple, No JVD, No Nodes, Trachea Midline Lungs: No rhonchi, No wheeze, No rales, Diminished, - - Increased AP diameter Cardiovascular: Regular rate, Regular Rhythm, Normal S1, Normal S2, No murmurs Abdomen: Bowel Sounds Present, Soft, Non Tender, Non-Distended Extremities: No cyanosis, No edema, Clubbing Skin: No rashes, No breakdown Musculoskeletal: No Tenderness to Palpation of Joints or Extremities, Cachexia, Muscle Wasting Lymphatic: No Cervical, Supraclavicular, or Inguinal Adenopathy Neurological: Neuro grossly intact Psych/Mental Status: Normal Affect, Appropriate Vital Signs Temp Pulse Resp BP Pulse Ox 98.9 F 101 H 18 147/96 H 92 12/22/17 01:37 12/22/17 01:37 12/22/17 01:37 12/22/17 01:37 12/22/17 01:37 Oxygen Flow Rate 2 Oxygen Delivery Method Room Air Weight: 104 lb 15.04 oz Body Mass Index (BMI) 17.2 Intake and Output for Last 24 Hours 12/20/17 12/21/17 12/22/17 23:59 23:59 23:59 Intake Total 1297 / 1297 1620 / 1620 240 / 240 Output Total 425 / 425 725 / 725 Balance 872 / 872 895 / 895 240 / 240 Microbiology Past 72 Hours 12/20/17 06:00 Gram Stain - Final Sputum, Expectorated/Coughed Respiratory Culture - Preliminary Appears to be normal respiratory connie. Further studies to follow. 12/20/17 07:09 Respiratory Panel (PCR) - Final Mucosa - Nose Laboratory Tests Past 24 Hrs 12/21/17 12/21/17 09:30 09:30 WBC 7.0 RBC 3.69 L Hgb 10.9 L Hct 32.9 L MCV 89.2 MCH 29.5 MCHC 33.1 RDW 13.0 RDW Differential 42.6 Plt Count 117 L MPV 10.8 Sodium 138 Potassium 4.1 Chloride 102 Carbon Dioxide 26.0 Anion Gap 10 BUN 39 H Creatinine 2.01 H Estim Creat Clear Calc 23.35 Est GFR (MDRD) Af Amer 43 L Est GFR (MDRD) Non-Af 35 L BUN/Creatinine Ratio 19.4 Glucose 230 H Calcium 8.7 Magnesium 1.8 Clinical Impression(s) from Imaging Studies Chest X-Ray 12/20/17 03:10 IMPRESSION: COPD. Progression of chronic interstitial lung disease. Electronically Signed: Tanner Bronson MD at 3:30 EST , Service support , Assessment/Plan Active and Suspected Problems (Last Reviewed 11/25/17 @ 14:18 by Marjorie Cárdenas) COPD with acute exacerbation (Acute) RECOMMENDATIONS: 1. Continue scheduled aerosol treatments 2. Wean supplemental oxygen to maintain saturations at or above 90% 3. Continue steroids 4. Encourage incentive spirometer use and mobilize patient as tolerated 5. Perform walking oximetry study prior to consideration for discharge from the hospital. 6. Close outpatient pulmonary follow-up is recommended. The patient should ideally be seen by her nurse practitioner within 2 weeks of his discharge from the hospital. 7. Please provide patient with prescriptions for Symbicort and Spiriva at the time of his discharge. IMPRESSIONS: 1. Acute hypoxemic respiratory failure due to COPD with exacerbation Unclear etiology for the patient's exacerbation. He does not have what appears to be an acute infiltrative process on chest imaging. Antibiotics can be discontinued accordingly. The patient does admit that he has been out of his maintenance inhaler medications ?5 days, which may have led to his current clinical state. We will plan to continue scheduled aerosol treatments along with steroids. Wean supplemental oxygen as tolerated. The patient will undoubtedly need to follow-up in the pulmonary medicine clinic, as he has not been seen by Dr. Ocampo since 2016. Perform walking oximetry study prior to consideration for discharge from the hospital. The patient will require refills of his baseline inhalers upon discharge, including Symbicort and Spiriva. 2. Chronic kidney disease The patient's creatinine appears to be baseline. Urine output is appropriate. No indication for renal replacement therapy at this time. 3. Coronary artery disease/Crohn's disease/hypertension Complicates care, management, recovery and prognosis. Continue home medications as indicated. This note was generated with [employer] dictation software. It may contain incorrect words, spelling, and punctuation that were not noted in checking the note before signing. Code Visit Inpatient E&M: 16569 Subs Hosp L2
[2017-12-22 06:27] LABS: Hematocrit 32.3 % (40-54); Hemoglobin 10.7 g/dl (13.0-16.5); Mean Corp Hgb Conc 33.1 g/gl (32-36); Mean Corpuscular Volume 90.5 fL (80-94); Mean Platelet Vol. 11.1 fl (6.2-12.0); Platelet Count 143 K/mm3 (150-450); RBC Distribution Width SD 41.9 fl (35.1-43.9); Red Blood Count 3.57 M/mm3 (4.6-6.2); White Blood Count 8.2 K/mm3 (4.4-11.0)
[2017-12-22 06:28] LABS: Scan Indicated on CBC? Y/N NO
[2017-12-22 06:48] LABS: Anion Gap 8 (5-15); BUN 44 mg/dL (7-18); Calcium,Total 8.9 mg/dL (8.5-10.1); Chloride 103 mmol/L (98-107); Creatinine, Serum 1.76 mg/dL (0.70-1.30); EST Glomerular Filtration Rate 41 mL/min (>60); Est Glom Filt Rate - Afr Amer 50 mL/min (>60); Estimated Creatinine Clearance 26.67 ml/min; Glucose 118 mg/dL (74-106); Potassium 4.4 mmol/L (3.5-5.1); Sodium Level 139 mmol/L (136-145)
[2017-12-22 06:51] VITALS: PULSE 96; RESP 18; O2SAT 96
[2017-12-22] MEDS: Ipratropium/Albuterol Sulfate 3 ML AMPUL.NEB INHALATION (06:51)
--- NOTE | 2017-12-22 07:28 | PCM.DC ---
You will use the following diet at home:: Regular Your food should be the consistency of: Regular Allergies/Adverse Reactions: Allergies Penicillins Adverse Reaction (Verified 11/25/17 14:18) Other Medications to take at Discharge Albuterol Aerosols [Ventolin Aerosols] 2.5 mg INHALATION Q4H PRN PRN 01/17/15 Loperamide [Imodium] 2 mg PO DAILY 01/17/15 atorvastatin 20 mg tablet 20 mg PO QDAY #30 tab 11/25/17 lisinopril 5 mg tablet 5 mg PO QDAY #30 tab 11/25/17 Mesalamine [Pentasa] 500 mg PO DAILY 12/20/17 Budesonide/Formoterol 160/4.5 [Symbicort 160/4.5 Mcg Inhaler (SP)] 1 puff INHALATION DAILY #1 inhaler 12/22/17 Levofloxacin [Levaquin] 250 mg PO DAILY@0600 #5 tab 12/22/17 Prednisone 10 mg PO UD #30 tab 12/22/17 Tiotropium [place] [Spiriva 18 MCG] 1 puff INHALATION DAILY #1 inhaler 12/22/17 The following prescriptions were given: Budesonide/Formoterol 160/4.5 [Symbicort 160/4.5 Mcg Inhaler (SP)] 1 puff INHALATION DAILY #1 inhaler Levofloxacin [Levaquin] 250 mg PO DAILY@0600 #5 tab Prednisone 10 mg PO UD #30 tab Tiotropium [place] [Spiriva 18 MCG] 1 puff INHALATION DAILY #1 inhaler Primary Care Physician: Care Physician,No Primary [NON-STAFF] - Please follow up with your Primary Care Physician in: in 1-2 weeks Please Follow Up With: Delma Frey NP-C When: in 1-2 weeks Proposed Discharge Date: 12/22/17
[2017-12-22 07:29] VITALS: BP 151/93; PULSE 98; RESP 20; TEMP 36.8; O2SAT 94
--- NOTE | 2017-12-22 07:31 | DS.PCM_ITS ---
Discharge Date and Diagnosis - Problem List Patient Problems: Active and Suspected Problems (Last Reviewed 11/25/17 @ 14:18 by Marjorie Cárdenas) COPD with acute exacerbation (Acute) Date of Admission: 12/20/17 Date of Discharge: 12/22/17 - Primary Discharge Diagnosis Active and Suspected Problems (Last Reviewed 11/25/17 @ 14:18 by Marjorie Cárdenas) COPD with acute exacerbation (Acute) - Secondary Discharge Diagnosis Chronic Problems (Last Reviewed 11/25/17 @ 14:18 by Marjorie Cárdenas) Non-rheumatic tricuspid valve insufficiency (Chronic) Atherosclerosis of coronary artery of [place] heart without angina pectoris ( Chronic) Nicotine abuse (Chronic) Hypertension (Chronic) COLD (chronic obstructive lung disease) (Chronic) CKD (chronic kidney disease) stage 4, GFR 15-29 ml/min (Chronic) Following with Dr. Chapman [facility] Course and Treatment Imaging Results: Clinical Impression(s) from Imaging Studies Chest X-Ray 12/20/17 03:10 IMPRESSION: COPD. Progression of chronic interstitial lung disease. Electronically Signed: Tanner Bronson MD at 3:30 EST , Service support , Operations: None Summary of Care Provided: 67-year-old gentleman with past medical history significant for CKD stage IV hypertension COPD admitted with progressive shortness of breath and assessment of acute hypoxic respiratory failure secondary to COPD exacerbation made started on BiPAP admitted to the intensive care unit 1. Acute hypoxic and hypercapnic respiratory failure secondary to COPD with exacerbation admitted to the intensive care unit with consultation placed a pulmonary medicine patient placed on noninvasive ventilation BiPAP in addition to bronchodilator treatment steroid as well as antibiotics; did adjust doses of steroids and was discharged home following stabilization of his medical condition plan is for patient to follow-up with pulmonary medicine as outpatient within 1-2 weeks as well as with his PCP 2. CKD stage III 3. Hypertension-blood pressure controlled, home medications continued with dose adjustment as needed 4. CAD per history 5. Generalized osteoarthritis 6. DVT prophylaxis SC heparin Discharge Diet: No Restrictions Home Medications: Medications to take at Discharge Albuterol Aerosols [Ventolin Aerosols] 2.5 mg INHALATION Q4H PRN PRN 01/17/15 Loperamide [Imodium] 2 mg PO DAILY 01/17/15 atorvastatin 20 mg tablet 20 mg PO QDAY #30 tab 11/25/17 lisinopril 5 mg tablet 5 mg PO QDAY #30 tab 11/25/17 Mesalamine [Pentasa] 500 mg PO DAILY 12/20/17 Budesonide/Formoterol 160/4.5 [Symbicort 160/4.5 Mcg Inhaler (SP)] 1 puff INHALATION DAILY #1 inhaler 12/22/17 Levofloxacin [Levaquin] 250 mg PO DAILY@0600 #5 tab 12/22/17 Prednisone 10 mg PO UD #30 tab 12/22/17 Tiotropium [place] [Spiriva 18 MCG] 1 puff INHALATION DAILY #1 inhaler 12/22/17 Following Prescrptions Were Given to Patient: Budesonide/Formoterol 160/4.5 [Symbicort 160/4.5 Mcg Inhaler (SP)] 1 puff INHALATION DAILY #1 inhaler Levofloxacin [Levaquin] 250 mg PO DAILY@0600 #5 tab Prednisone 10 mg PO UD #30 tab Tiotropium [place] [Spiriva 18 MCG] 1 puff INHALATION DAILY #1 inhaler Primary Care Physician: Care Physician,No Primary [NON-STAFF] - Please follow up with your Primary Care Physician in: in 1-2 weeks Please Follow Up With: Delma Frey NP-C When: in 1-2 weeks Disposition: Home Minutes spent on discharge:: 35 Patient Condition:: Stable Meaningful Use Info Meaningful Use Diagnoses (Choose all that apply): None applicable Code Visit Inpatient E&M: 59877 Disch Hosp
== END 2017-12-22 09:45 | disposition home or self-care (01) | DRG 189 ==
LOC: ED 03:45 → ICU 04:14
PROVIDERS: Admitting Provider Internal Medicine; Emergency Provider Emergency Medicine; Family Provider Family Medicine Geriatric Medicine; PCP Family Medicine Geriatric Medicine; Visit Provider Internal Medicine
DX: J96.01 Acute respiratory failure with hypoxia (principal); N18.4 Chronic kidney disease, stage 4 (severe); I36.1 Nonrheumatic tricuspid (valve) insufficiency; J44.1 Chronic obstructive pulmonary disease with (acute) exacerbation; K50.90 Crohn's disease, unspecified, without complications; Z23 Encounter for immunization; I12.9 Hypertensive chronic kidney disease with stage 1 through stage 4 chronic kidney disease, or unspecified chronic kidney disease; I25.10 Atherosclerotic heart disease of native coronary artery without angina pectoris; J96.02 Acute respiratory failure with hypercapnia; M15.9 Polyosteoarthritis, unspecified; Z87.891 Personal history of nicotine dependence
CPT/HCPCS: 36600; 71045; 80048; 82803; 83605; 83735; 83880; 84484; 85025; 85027; 87040; 87070; 87205; 87633; 87641; 87804; 93005; 94002; 94640; 94667; 94668; 99285; J7030; 90686; A4216

== ENCOUNTER → 2017-12-30 12:02 | Outpatient (CLI) | payer MEDICARE, MEDICAID, SELFPAY ==
[2017-12-30 13:04] LABS: Absolute Lymphocyte Count 0.72 X10^3/ul (0.83-4.51); Eosinophil# 0.03 X10^3/uL; Eosinophils% 0.4 % (0-5); Hematocrit 42.7 % (40-54); Hemoglobin 13.6 g/dl (13.0-16.5); Lymphocyte # 0.72 X10^3/ul (4.0); Mean Corp Hgb Conc 31.9 g/gl (32-36); Mean Corpuscular Hgb 29.1 pg (27.0-32.0); Mean Corpuscular Volume 91.2 fL (80-94); Mean Platelet Vol. 9.9 fl (6.2-12.0); Monocyte# 0.19 X10^3/uL; Monocyte% 2.4 % (0-10); Neutrophil # 7.01 X10^3/uL (2.7-7.7); Neutrophil % 87.8 % (47-70); Platelet Count 245 K/mm3 (150-450); RBC Distribution Width CV 13.6 % (11.6-14.6); RBC Distribution Width SD 44.2 fl (35.1-43.9); Red Blood Count 4.68 M/mm3 (4.6-6.2)
[2017-12-30 13:12] LABS: POSITIVE COUNT NO; POSITIVE DIFFERENTIAL NO; POSITIVE MORPHOLOGY NO
[2017-12-30 13:42] LABS: ALB/GLOB Ratio 1.2 RATIO (0.9-2.4); AST(SGOT) 18 U/L (15-37); Alanine Aminotransfer ALT/SGPT 30 U/L (16-61); Albumin, Serum 3.8 g/dL (3.2-5.0); Alkaline Phosphatase 90 U/L (45-117); Anion Gap 7 (5-15); BUN 28 mg/dL (7-18); BUN/Creat Ratio 15.5 RATIO (10-20); Calcium,Total 8.7 mg/dL (8.5-10.1); Chloride 102 mmol/L (98-107); Creatinine, Serum 1.81 mg/dL (0.70-1.30); EST Glomerular Filtration Rate 40 mL/min (>60); Est Glom Filt Rate - Afr Amer 48 mL/min (>60); Globulin 3.1 g/dL (2.2-4.2); Glucose 84 mg/dL (74-106); PSA,Total - Annual Screen 1.27 ng/mL (0.00-4.00); Potassium 3.5 mmol/L (3.5-5.1); Protein, Total 6.9 g/dL (6.4-8.2); Sodium Level 141 mmol/L (136-145); Thyroid Stim Hormone (TSH) 1.66 uIU/mL (0.358-3.74)
[2017-12-31 11:21] LABS: Hep C Antibodies <0.1 s/co ratio (0.0-0.9)
== END ==
PROVIDERS: Family Provider Family Medicine Geriatric Medicine; PCP Family Medicine Geriatric Medicine; Visit Provider Family Medicine Geriatric Medicine
DX: I10 Essential (primary) hypertension (principal); E11.9 Type 2 diabetes mellitus without complications; Z12.5 Encounter for screening for malignant neoplasm of prostate; Z13.89 Encounter for screening for other disorder
CPT/HCPCS: 36415; 80053; 84153; 84443; 85025; 86803; G0103

== ENCOUNTER → 2018-06-30 11:02 | Outpatient (CLI) | payer MEDICARE, MEDICAID, SELFPAY ==
[2018-06-30 13:36] LABS: Absolute Neutrophil Count 2.2 X10^3/uL (2.0-7.7); Basophil# 0.01 X10^3/uL; Basophil% 0.3 % (0-1); Eosinophil# 0.07 X10^3/uL; Eosinophils% 2.3 % (0-5); Hematocrit 33.6 % (40-54); Hemoglobin 11.2 g/dl (13.0-16.5); Lymphocyte % 16.4 % (19-41); Mean Corp Hgb Conc 33.3 g/gl (32-36); Mean Corpuscular Hgb 29.9 pg (27.0-32.0); Mean Corpuscular Volume 89.6 fL (80-94); Mean Platelet Vol. 11.1 fl (6.2-12.0); Monocyte# 0.23 X10^3/uL; Monocyte% 7.5 % (0-10); Neutrophil # 2.24 X10^3/uL (2.7-7.7); Neutrophil % 73.5 % (47-70); Platelet Count 123 K/mm3 (150-450); RBC Distribution Width CV 13.3 % (11.6-14.6); RBC Distribution Width SD 42.3 fl (35.1-43.9); Red Blood Count 3.75 M/mm3 (4.6-6.2); White Blood Count 3.1 K/mm3 (4.4-11.0)
[2018-06-30 13:43] LABS: Differential Indicated SCAN CRITERIA MET; POSITIVE COUNT NO; POSITIVE DIFFERENTIAL YES; POSITIVE MORPHOLOGY NO
[2018-06-30 13:53] LABS: ALB/GLOB Ratio 1.2 RATIO (0.9-2.4); AST(SGOT) 25 U/L (15-37); Alanine Aminotransfer ALT/SGPT 54 U/L (16-61); Albumin, Serum 3.5 g/dL (3.2-5.0); Alkaline Phosphatase 85 U/L (45-117); Anion Gap 8 (5-15); BUN 22 mg/dL (7-18); BUN/Creat Ratio 12.1 RATIO (10-20); Calcium,Total 8.7 mg/dL (8.5-10.1); Chloride 107 mmol/L (98-107); Creatinine, Serum 1.82 mg/dL (0.70-1.30); EST Glomerular Filtration Rate 39 mL/min (>60); Est Glom Filt Rate - Afr Amer 48 mL/min (>60); Globulin 2.8 g/dL (2.2-4.2); Glucose 112 mg/dL (74-106); Potassium 3.8 mmol/L (3.5-5.1); Protein, Total 6.3 g/dL (6.4-8.2); Sodium Level 143 mmol/L (136-145)
[2018-06-30 13:57] LABS: Differential Comment SCANNED
== END ==
PROVIDERS: Family Provider Family Medicine Geriatric Medicine; PCP Family Medicine Geriatric Medicine; Visit Provider Family Medicine Geriatric Medicine
DX: I10 Essential (primary) hypertension (principal); E11.9 Type 2 diabetes mellitus without complications; E55.9 Vitamin D deficiency, unspecified
CPT/HCPCS: 36415; 80053; 82306; 84443; 85025

== ENCOUNTER 2018-07-06 16:02 | Emergency (ER) | payer MEDICARE, MEDICAID, SELFPAY ==
[2018-07-06 16:03] VITALS: BP 119/73; PULSE 103; RESP 18; TEMP 37.3; O2SAT 92; BMI 15.5
[2018-07-06 16:25] VITALS: PULSE 91; RESP 19; O2SAT 92
--- NOTE | 2018-07-06 16:39 | CT_ITS ---
STUDY: CT ABDOMEN AND PELVIS WITHOUT CONTRAST REASON FOR EXAM: Male, 68 years old. Abdominal pain with vomiting. History of Crohn's disease, partial colectomy. RADIATION DOSAGE (If Supplied By Facility): CTDIvol = ( 6.04 ) mGy, DLP = ( 271.80 ) mGycm TECHNIQUE: Transaxial images were obtained from the dome of the diaphragm to the symphysis pubis without oral contrast, and without intravenous contrast. Sagittal and coronal images were reconstructed. Individualized dose optimization techniques were used for this CT. COMPARISON: 08/14/2016. FINDINGS: Calcified granuloma is noted in the right lung base. Lung bases appear hyperinflated with centrilobular emphysema. The visualized portions of the heart are within normal limits. Normal liver. Normal gallbladder and extrahepatic biliary system. There are multiple benign calcified granulomata of the spleen. Normal pancreas. Normal bilateral adrenal glands. The aorta is ectatic, measuring up to 2.5 cm in the mid abdominal segment. There is moderate atherosclerotic calcification. Multiple nonobstructing renal stones are noted, greater on the right. There is no hydronephrosis. The stomach and proximal duodenum are markedly distended, with abrupt transition at the transverse segment crossing the aorta. Findings are similar to the prior study. There is no obvious mass or bowel wall thickening. Findings raise question of SMA syndrome. Although this is atypical in male or older patients, the patient may be predisposed based on cachexia. Distal small bowel and colon are normal in caliber. There is no free fluid or free air. Bladder is partially distended and grossly unremarkable. Normal abdominal wall. Normal osseous structures. CT/Abdomen/Pelvis without Cont IMPRESSION: 1. Distended stomach and proximal duodenum with transition in the transverse (3rd) segment, similar to the prior study. Question SMA syndrome. 2. Nonobstructing renal stones. 3. Ectatic mid abdominal aorta. 4. Old healed granulomatous disease. Electronically Signed: Shanna Aguillon MD at 18:26 EDT Tel , Service support ,
--- NOTE | 2018-07-06 16:44 | ED.DCSUM_ITS ---
- ER Visit Summary Date of Service: 07/06/18 Chief Complaint: Abdominal pain, vomiting History of Present Illness: The patient is a 68 M general abdominal pain with vomiting since 1 PM yesterday. Vomited total 16 times, states charcoal color. 1 diarrhea episodes prior to abdominal pain. Decreased flatus. Chills. History of bowel obstruction ?2 in the past. States last time 2005 he had a bowel resection however states that Crohn's disease also. Surgery was done in [place]. Does not follow general surgeon. No other abdominal surgeries. No urinary symptoms. Denies any blood in the stools. Physical Examination: General: Alert and oriented ?3, no acute distress HEENT: Normocephalic, atraumatic. Dry mucosa membranes Neck: supple, nontender. Cardiovascular: Regular rate and rhythm, no murmurs Respiratory: Normal breath sounds, symmetric, no distress Abdomen: Soft, generalized tenderness without guarding or rebound, nondistended , hypoactive bowel sounds. Midline abdominal healed incision. Extremities: Nontender, no edema, pulses intact ?4 Neuro: no focal neurological deficits. Test Results: White count 5.8. Hemoccult 14.3. Creatinine 2.32. Potassium 3.4. Lipase 390. Liver enzymes normal. Lactic acid 1.0. CT scan abdomen pelvis dilated stomach and duodenum. This transition point proximal aorta reported by radiology questionable possible SMA syndrome. Emergency Department Course and Treatment: Patient history evaluation concerns for bowel obstruction. Workup initiated. Given morphine and Zofran. Labs stable. CT scan noted dilated proximal bowel. NG tube ordered. There is questionable SMA syndrome per radiology read. Lactic acid was normal. I did discuss with covering surgeon Dr. Rivas who requests transfer to tertiary center secondary to this. Spoke with [facility] excepted to surface Dr. Javier. Patient creatinine is chronic, however this is slightly more elevated than previous range from 1.7-2.0. He is given IV fluids. Treatment Plan: [] Disposition: Transfer [facility] Impression: 1. Abdominal pain 2. Small bowel obstruction 3. Possible SMA syndrome 4. Chronic kidney disease This note was generated with [employer] dictation software. It may contain incorrect words, spelling, and punctuation that were not noted in review of the chart prior to signing ED Disposition - Plan for ED Patient: Disposition: [facility] Chief Complaint: Abd Pain Diagnosis: CKD (chronic kidney disease) stage 4, GFR 15-29 ml/min, Small bowel obstruction , Possible SMA syndrome Referrals: Jalen Rodríguez Chi, MD [Primary Care Provider] -
[2018-07-06] MEDS: 0.9% Normal Saline 1,000 ML 1000 ML IV (16:55)
[2018-07-06] MEDS: Ondansetron 4 MG/2 ML Vial IV (16:55)
[2018-07-06] MEDS: Morphine 4 MG/ML Syringe IV (16:55)
[2018-07-06 16:56] LABS: Absolute Lymphocyte Count 0.63 X10^3/ul (0.83-4.51); Absolute Neutrophil Count 4.8 X10^3/uL (2.0-7.7); Basophil# 0.02 X10^3/uL; Basophil% 0.3 % (0-1); Eosinophil# 0.05 X10^3/uL; Eosinophils% 0.9 % (0-5); Hematocrit 43.9 % (40-54); Hemoglobin 14.3 g/dl (13.0-16.5); Lymphocyte # 0.63 X10^3/ul (4.0); Lymphocyte % 10.8 % (19-41); Mean Corp Hgb Conc 32.6 g/gl (32-36); Mean Corpuscular Hgb 29.1 pg (27.0-32.0); Mean Corpuscular Volume 89.4 fL (80-94); Mean Platelet Vol. 10.7 fl (6.2-12.0); Monocyte# 0.31 X10^3/uL; Monocyte% 5.3 % (0-10); Neutrophil # 4.81 X10^3/uL (2.7-7.7); Neutrophil % 82.7 % (47-70); Platelet Count 162 K/mm3 (150-450); RBC Distribution Width CV 13.7 % (11.6-14.6); RBC Distribution Width SD 44.3 fl (35.1-43.9); Red Blood Count 4.91 M/mm3 (4.6-6.2); White Blood Count 5.8 K/mm3 (4.4-11.0)
[2018-07-06 17:02] LABS: POSITIVE COUNT NO; POSITIVE DIFFERENTIAL NO; POSITIVE MORPHOLOGY NO
[2018-07-06 17:04] LABS: ALB/GLOB Ratio 1.3 RATIO (0.9-2.4); AST(SGOT) 19 U/L (15-37); Alanine Aminotransfer ALT/SGPT 32 U/L (16-61); Albumin, Serum 4.4 g/dL (3.2-5.0); Alkaline Phosphatase 103 U/L (45-117); Anion Gap 10 (5-15); BUN 27 mg/dL (7-18); BUN/Creat Ratio 11.6 RATIO (10-20); Chloride 97 mmol/L (98-107); Creatinine, Serum 2.32 mg/dL (0.70-1.30); EST Glomerular Filtration Rate 30 mL/min (>60); Est Glom Filt Rate - Afr Amer 36 mL/min (>60); Estimated Creatinine Clearance 18.06 ml/min; Globulin 3.5 g/dL (2.2-4.2); Glucose 139 mg/dL (74-106); Lipase 390 U/L (73-393); Potassium 3.4 mmol/L (3.5-5.1); Protein, Total 7.9 g/dL (6.4-8.2); Sodium Level 141 mmol/L (136-145)
[2018-07-06 18:03] VITALS: PULSE 77; RESP 15; O2SAT 99
[2018-07-06 18:08] VITALS: BP 157/88; PULSE 88; RESP 12; O2SAT 99
--- NOTE | 2018-07-06 18:08 | ED.RN ---
PT PLACED ON 3L NC AFTER HAVING MORPHINE DUE TO LOW SPO2 IN 90% RA. TOLERATING 3L NC WELL SATTING 99% DR. VANESSA.
[2018-07-06] MEDS: 0.9% Normal Saline 1,000 ML 150 ML IV (18:12)
--- NOTE | 2018-07-06 18:43 | RAD_ITS ---
STUDY: X-RAY - ABDOMEN/PELVIS REASON FOR EXAM: Male, 68 years old. NG tube placement. TECHNIQUE: Single supine view of the abdomen. COMPARISON: None. FINDINGS: Normal visualized lung bases. Nasogastric tube is identified with the terminus projected over the right sacral ala. The tube projects beyond the visualized gastric bubble. Findings are not consistent with gastric placement. There is a nonobstructive bowel gas pattern. Soft tissues and bony structures are unremarkable. RAD/Abdomen Single View (Portable) IMPRESSION: NG tube projects over the pelvis, and is not consistent with gastric placement. Electronically Signed: Shanna Aguillon MD at 21:40 EDT Tel , Service support ,
--- NOTE | 2018-07-06 19:27 | ED.RN ---
THIS RN ATTEMPTED NG TUBE PLACEMENT INTO RIGHT NARE. ATTEMPT UNSUCCESSFUL. ROMIE MORIN INFORMED.
[2018-07-06 20:00] VITALS: BP 151/83; PULSE 86; RESP 17; O2SAT 94
--- NOTE | 2018-07-06 21:57 | NURSING ---
PT HANDED NURSE PHONE AND STATED THAT HIS DAUGHTER WANTS TO DISCUSS PT'S STATUS. UPDATE GIVEN TO DAUGHTER AND PROVIDED [facility] PHONE NUMBER AND ROOM NUMBER TO DAUGHTER.
[2018-07-06 22:06] VITALS: BP 153/80; PULSE 82; RESP 23; O2SAT 97
== END 2018-07-06 22:07 | disposition short-term general hospital (02) ==
PROVIDERS: Emergency Provider Emergency Medicine; Family Provider Family Medicine Geriatric Medicine; PCP Family Medicine Geriatric Medicine
DX: K56.609 Unspecified intestinal obstruction, unspecified as to partial versus complete obstruction (principal); R10.84 Generalized abdominal pain; K50.90 Crohn's disease, unspecified, without complications; I12.9 Hypertensive chronic kidney disease with stage 1 through stage 4 chronic kidney disease, or unspecified chronic kidney disease; N18.9 Chronic kidney disease, unspecified; I25.10 Atherosclerotic heart disease of native coronary artery without angina pectoris; J44.9 Chronic obstructive pulmonary disease, unspecified; Z79.51 Long term (current) use of inhaled steroids; Z79.899 Other long term (current) drug therapy
CPT/HCPCS: 36415; 74018; 74176; 80053; 83605; 83690; 85025; 96361; 96374; 96375; 99285; J7030; A4216; J2405

== ENCOUNTER → 2018-10-04 12:20 | Outpatient (CLI) | payer MEDICARE, MEDICAID, SELFPAY ==
[2018-09-28 09:30] VITALS: BMI 15.5
[2018-10-04 12:27] VITALS: PULSE 103; PULSE 106; PULSE 113; PULSE 120; PULSE 122; PULSE 126; PULSE 92; O2SAT 86; O2SAT 90; O2SAT 91; O2SAT 92; O2SAT 93; O2SAT 94; O2SAT 96
--- NOTE | 2018-10-04 16:08 | PCM.PSN.6M ---
PSN 6 Minute Walk Test - 6 Minute Walk Test 6 Minute Walk Test: 6 Minute Walk Test PSN:6-Minute Walk Test Start: 10/04/18 14:02 Freq: Status: Active Protocol: [id number].6MINW Document 10/04/18 12:27 B (Rec: 10/04/18 14:05 B [id number]) 6 Minute Walk Test Date Performed 10/04/18 Time Performed 12:27 Height 5 ft 5 in Weight: 90.265 kg Weight in Pounds 199.[address]: Delma Frey Assistive device used: None Pre-test Oxygen Delivery Method Room Air Pulse Ox (%) 94 Pulse Rate (60-100 beats/min) 106 H Dyspnea Iva Scale (0-10) 0.5 Exertion Iva Scale (6-20) 11 Reported Symptoms Increased Work of Breathing 1st minute Oxygen Delivery Method Room Air Pulse Ox (%) 90 Pulse Rate (60-100 beats/min) 126 H 2nd minute Oxygen Delivery Method Room Air Pulse Ox (%) 86 Pulse Rate (60-100 beats/min) 92 Dyspnea Iva Scale (0-10) 113 3rd minute Oxygen Flow Rate (L/min) (L/min) 2 Oxygen Delivery Method Nasal Cannula Pulse Ox (%) 92 Pulse Rate (60-100 beats/min) 113 H 4th minute Oxygen Flow Rate (L/min) (L/min) 2 Oxygen Delivery Method Nasal Cannula Pulse Ox (%) 93 Pulse Rate (60-100 beats/min) 122 H 5th minute Oxygen Flow Rate (L/min) (L/min) 2 Oxygen Delivery Method Nasal Cannula Pulse Ox (%) 91 Pulse Rate (60-100 beats/min) 120 H 6th minute Oxygen Flow Rate (L/min) (L/min) 2 Oxygen Delivery Method Nasal Cannula Pulse Ox (%) 92 Pulse Rate (60-100 beats/min) 122 H Post-test Oxygen Flow Rate (L/min) (L/min) 2 Oxygen Delivery Method Nasal Cannula Pulse Ox (%) 96 Pulse Rate (60-100 beats/min) 103 H Dyspnea Iva Scale (0-10) 0 Exertion Iva Scale (6-20) 12 Full Laps Walked 11 Partial Lap, Number of Tiles Walked 23 Total Distance Walked (ft) 672 - Interpretation Interpretation: The patient was able to ambulate only 672 feet over the course of 6 minutes with no assistive devices or breaks. The patient did desaturate to 86% of the second minute requiring 2 L nasal cannula oxygen. Patient was noted to be tachycardic throughout testing with a peak heart rate of 122 bpm. These findings are consistent with a cardiopulmonary limit to exercise tolerance - Recommendations Recommendations: The patient requires no supplemental oxygen at rest, but should be using 2 L nasal cannula with any exertion.
--- OUTSIDE RECORDS SUMMARY | 2018-11-20 14:28 | XMS RPT_ITS ---
:1950 Author Organization OHIP Support Name Relationship Address Phone R Unavailable Unavailable Unavailable DAKOTA DELEON Unavailable [address] + [place] [address] R Unavailable Unavailable Unavailable DAKOTA DELEON Unavailable [address] + [place] [address] R Unavailable Unavailable Unavailable DAKOTA DELEON Unavailable [address] + [place] [address] R Unavailable Unavailable Unavailable DAKOTA DELEON Unavailable [address] + [place] [address] R Unavailable Unavailable Unavailable DAKOTA DELEON Unavailable [address] + [place] [address] R Unavailable Unavailable Unavailable DAKOTA DELEON Unavailable [address] + [place] [address] R Unavailable Unavailable Unavailable DAKOTA DELEON Unavailable [address] + [place] [address] R Unavailable Unavailable Unavailable DAKOTA DELEON Unavailable [address] + [place] [address] R Unavailable Unavailable Unavailable DAKOTA DELEON Unavailable [address] + [place] [address] R Unavailable Unavailable Unavailable DAKOTA DELEON Unavailable [address] + [place] [address] R Unavailable Unavailable Unavailable DAKOTA DELEON Unavailable Unavailable + R Unavailable Unavailable Unavailable DAKOTA DELEON Unavailable Unavailable + R Unavailable Unavailable Unavailable R Unavailable Unavailable Unavailable R Unavailable Unavailable Unavailable R Unavailable Unavailable Unavailable R Unavailable Unavailable Unavailable HEIKE OCHOA Unavailable [address] + [place] [address] R Unavailable Unavailable Unavailable HEIKE OCHOA Unavailable [address] + [place] [address] R Unavailable Unavailable Unavailable OCHOA, HEIKE Unavailable [address] + [place] [address] R Unavailable Unavailable Unavailable OCHOA, HEIKE Unavailable [address] + [place] [address] R Unavailable Unavailable Unavailable OCHOA, HEIKE Unavailable [address] + [place] [address] R Unavailable Unavailable Unavailable OCHOA, HEIKE Unavailable [address] + [place] [address] R Unavailable Unavailable Unavailable OCHOA, HEIKE Unavailable [address] + [place] [address] R Unavailable Unavailable Unavailable OCHOA, HEIKE Unavailable [address] + [place] [address] R Unavailable Unavailable Unavailable OCHOA, HEIKE Unavailable [address] + [place] [address] R Unavailable Unavailable Unavailable OCHOA, HEIKE Unavailable [address] + [place] [address] R Unavailable Unavailable Unavailable OCHOA, HEIKE Unavailable [address] + [place] [address] R Unavailable Unavailable Unavailable OCHOA, HEIKE Unavailable [address] + [place] [address] R Unavailable Unavailable Unavailable R Unavailable Unavailable Unavailable BAXTON, MARCIO Unavailable [address] [facility] + [place] [address] OCHOA, HEIKE Unavailable [address] + [place] [address] R Unavailable Unavailable Unavailable BAXTON, MARCIO Unavailable [address] [facility] + [place] [address] OCHOA, HEIKE Unavailable [address] + [place] [address] R Unavailable Unavailable Unavailable Care Team Providers Name Role Phone Marjorie Cárdenas Attending Unavailable Kemar Mckeon Attending Unavailable Aj Jimenez Attending Unavailable Marcos, Jalen Chi Referring Unavailable Marcos, Jalen Chi Primary Care Unavailable Aj Jimenez Attending Unavailable Aj Jimenez Referring Unavailable Primay Care Physicia, No Primary Care Unavailable Marcos, Jalen Chi Primary Care Unavailable Chrissy, Kam Admitting Unavailable Jose D Wolff D.O. Consulting Unavailable Dalia Roberson Attending Unavailable Chrissy, Kam Admitting Unavailable Marcos, Jalen Chi Primary Care Unavailable Chrissy, Kam Consulting Unavailable Paintsil, [place] Attending Unavailable Chrissy, Kam Admitting Unavailable Jose D Wolff D.O. Attending Unavailable Marcos, Jalen Chi Primary Care Unavailable Jose D Wolff D.O. Consulting Unavailable Dalia Roberson Consulting Unavailable Chrissy, Kam Admitting Unavailable Dalia Roberson Attending Unavailable Marcos, Jalen Chi Primary Care Unavailable Jose D Wolff D.O. Consulting Unavailable Dalia Roberson Consulting Unavailable Chrissy, Kam Admitting Unavailable Jose D Wolff D.O. Attending Unavailable Marcos, Jalen Chi Primary Care Unavailable Jose D Wolff D.O. Consulting Unavailable Dalia Roberson Consulting Unavailable Chrissy, Kam Admitting Unavailable Dalia Roberson Attending Unavailable Marcos, Jalen Chi Primary Care Unavailable Jose D Wolff D.O. Consulting Unavailable Dalia Roberson Consulting Unavailable Chrissy, Kam Admitting Unavailable Jose D Wolff D.O. Attending Unavailable Marcos, Jalen Chi Primary Care Unavailable Jose D Wolff D.O. Consulting Unavailable Dalia Roberson Consulting Unavailable Marcos, Jalen Chi Attending Unavailable Marcos, Jalen Chi Primary Care Unavailable Stefani Little Attending Unavailable Salas Ocampo Attending Unavailable Delma Frey Referring Unavailable Marcos, Jalen Chi Primary Care Unavailable Agyepong, Dakota Admitting Unavailable Sementi, Yelena Attending Unavailable Kay Kamara Consulting Unavailable Bakdaniels, Aziz Consulting Unavailable Agyepong, Dakota Admitting Unavailable Agyepong, Dakota Attending Unavailable Marcos, Jalen Chi Primary Care Unavailable Sementi, Yelena Consulting Unavailable Agyepong, Dakota Admitting Unavailable Marcos, Jalen Chi Primary Care Unavailable Sementi, Yelena Consulting Unavailable Sementi, Yelena Attending Unavailable Agyepong, Dakota Admitting Unavailable Sementi, Yelena Attending Unavailable Marcos, Jalen Chi Primary Care Unavailable Anh, Kay Consulting Unavailable Bakhous, Aziz Consulting Unavailable Sementi, Yelena Consulting Unavailable Agyepong, Dakota Admitting Unavailable Sementi, Yelena Attending Unavailable Marcos, Jalen Chi Primary Care Unavailable Anh, Kay Consulting Unavailable Bakhous, Aziz Consulting Unavailable Sementi, Yelena Consulting Unavailable Agyepong, Dakota Admitting Unavailable Semenlionel, Yelena Attending Unavailable Marcos, Jalen Chi Primary Care Unavailable Anh, Kay Consulting Unavailable Bakhous, Aziz Consulting Unavailable Sementi, Yelena Consulting Unavailable Dakota Gonzales Admitting Unavailable Kenneth Sanchez Attending Unavailable Marcos, Jalen Chi Primary Care Unavailable Anh, Kay Consulting Unavailable Bakhous, Aziz Consulting Unavailable Sementi, Yelena Consulting Unavailable Marcos, Jalen Chi Attending Unavailable Marcos, Jalen Chi Referring Unavailable Marcos, Jalen Chi Primary Care Unavailable Marcos, Jalen Chi Attending Unavailable Marcos, Jalen Chi Referring Unavailable Marcos, Jalen Chi Primary Care Unavailable Yemi Leal Attending Unavailable Prastefan, Dakota Referring Unavailable Aj Jimenez Attending Unavailable Marcos, Jalen Chi Referring Unavailable Marcos, Jalen Chi Primary Care Unavailable Delma Frey Attending Unavailable Marcos, Jalen Chi Referring Unavailable Marcos, Jalen Chi Attending Unavailable Marcos, Jalen Chi Primary Care Unavailable Marcos, Jalen Chi Primary Care Unavailable Channing Ruiz Attending Unavailable Salas Ocampo Attending Unavailable Marcos, Jalen Chi Referring Unavailable Delma Frey Attending Unavailable Delma Frey Referring Unavailable Marcos, Jalen Chi Primary Care Unavailable DALIA SANTOS Admitting Unavailable AMY CORRALES Attending Unavailable JEFRY, CHRISTOPH Consulting Unavailable EVELYN GILLESPIE (YONATAN) Attending Unavailable JACQUI CADET Referring Unavailable Jeaneth SANTOS Admitting Unavailable IMCA Primary Care Unavailable Jeaneth REYES Attending Unavailable Jeaneth LEE Consulting Unavailable Jeaneth CUMMINGS Consulting Unavailable JEFRY, CHRISTOPH Consulting Unavailable PROBLEMS PROBLEMS DATE TYPE CONDITION / CODE ATTENDING STATUS SOURCE Unknown J96.01 - Acute Kenneth Sanchez Active [place] [facility] respiratory failure Community with hypoxia / Hospital J96.01(ICD-10) Repository Unknown R94.31 - Abnormal [place], Active [place] [facility] electrocardiogram [facility] [ECG] [EKG] / Hospital R94.31(ICD-10) Repository Unknown J44.9 - Chronic Salas Ocampo Active [place] [facility] obstructive pulmonary Community disease, unspecified / Hospital J44.9(ICD-10) Repository Active Vomiting, unspecified AMY CORRALES Active [place] [facility] / R11.10(ICD-10) Clinic Other [place] Repository Admitting Unknown / UNK(Unknown) Jeaneth REYES Active [facility] 8 diagnosis [facility] Repository Unknown I10 - Essential Marcos, Jalen Chi Active [place] [facility] (primary) hypertension Community / I10(ICD-10) Hospital Repository Unknown E11.9 - Type 2 Marcos, Jalen Chi Active [place] [facility] diabetes mellitus Community without complications Hospital / E11.9(ICD-10) Repository Unknown E55.9 - Vitamin D Marcos, Jalen Chi Active [facility] deficiency, Community unspecified / Hospital E55.9(ICD-10) Repository Unknown Z23 - Encounter for Tk, Active [place] [facility] immunization / [facility] Z23(ICD-10) Hospital Repository Unknown J43.1 - Panlobular Tk, Active [place] [facility] emphysema / [facility] J43.1(ICD-10) Hospital Repository Unknown 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 Repository without angina pectoris / I25.10(ICD-10) Unknown N18.4 - Chronic kidney Aj Jimenez Active [place] [facility] disease, stage 4 Community (severe) / Hospital N18.4(ICD-10) Repository Unknown J44.1 - Chronic Aj Jimenez Active [facility] obstructive pulmonary Community disease with (acute) Hospital exacerbation / Repository J44.1(ICD-10) Unknown 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 Kamara. Patient recently presented to [facility] and was admitted with complaints of nausea, vomiting with history of coffee-ground emesis, gastric distention, history of Crohn's disease with prior small bowel resection and history of prior GI bleeds as well as bowel obstructions. Dr. Kamara performed upper endoscopy on 10/28/18 for further evaluation. The patient was found to have gastritis and non-severe reflux esophagitis, no active bleeding. Pathology demonstrated: mild chronic inflammation in the stomach, and mild acute and chronic inflammation from the GE junction biopsies. Testing for H. Pylori was negative. The patient notes no complaints since the procedure. He denies any further nausea or vomiting, any denies any abdominal pain at this time. Denies any blood in stools or dark stools. Taking PPI and Reglan per instructions from hospital. He notes also that the Reglan seems to have helped his stools become more formed. Notes no complaints. He has follow-up with his PCP Dr. Rordíguez next week. VITALS: There were no vitals taken for this visit. General: patient is alert, cooperative, pleasant and in no acute distress On examination, the abdomen is benign. Assessment IMPRESSION: s/p EGD showing gastritis and esophagitis, no obvious signs of bleeding. Clinically improved PLAN: -Continue omeprazole and reglan, dietary and lifestyle modifications as discussed -Call immediately if any recurrent symptoms -Follow up with Dr. Rodríguez next week Diagnoses: (K29.70, K20.9) Esophagitis with gastritis (primary encounter diagnosis) I spent 20 minutes in the visit, with more than 50% of the total eoyl-us-kmtl time of the visit in counseling / coordination of care. CECI Slaughter Observed: 11/11/2018 Status: COMPLETED Source: [place] 9:30 AM [facility] REPOSITORY Office Visit (GENSWS) MARK SERRANO ([id number]) 1950 M Date Time Provider Department 11/11/18 9:30 AM EVELYN GILLESPIE (PA) During your visit today, we recorded the following information about you: Evelyn Gillespie PA-C 11/11/2018 10:06 AM Signed -Continue omeprazole and reglan, dietary and lifestyle modifications as discussed -Call immediately if any recurrent symptoms -Follow up with Dr. Rodríguez next week The following instructions are important for you related to your office visit today with the [facility]. INSTRUCTIONS FOR PEPTIC ULCER DISEASE - ESOPHAGITIS I discussed with you the findings of your upper endoscopy. Your upper endoscopy demonstrated esophagitis Esophagitis may be a form of peptic irritation, with acid moving from the stomach to the esophagus (gastroesophageal reflux) Factors that increase acid production include smoking and stress. If you smoke, stopping smoking will often cure these issues without needing other medications. Over the counter medications including antiacids and acid reducing medications including H2 blockers (Zantac and the like) and proton pump inhibitors (prilosec, prevacid and the like) neutralize or prevent acid production. Prescription strength proton pump inhibitors (PPIs) may be necessary if your symptoms persist. Carafate may be added to PPI treatment in refractory cases. Avoiding smoking, alcohol and antiinflammatory medications are important in the successful treatment of reflux esophagitis and peptic diseases. Other factors that contribute to GERD and esophagitis are being overweight, eating large meals before laying down and certain foods. Weight loss will help improve many GERD complaints. Remaining upright after eating large meals and having a small supper will also help symptoms. Avoiding food that contribute to reflux - chocolate, caffeine, cheddar cheese may also help. Follow up upper endoscopy may be recommended to assure healing of the esophagus. New or worsening symptoms such are epigastric pain, burning, difficulty swallowing or food sticking should be relayed to your physician. Feeling full early after eating, or black, tarry, foul smelling stools are also worrisome. If you have any difficulties or concerns, you should contact our office immediately. If you note any additional difficulties, questions, or concerns, you should contact our office immediately @ [phone] and ask to be transferred to the General Surgery department. Evelyn Gillespie PA-C 11/14/2018 8:28 PM Signed FOLLOW UP VISIT - ENDOSCOPY NAME: Mark Serrano CLINIC NO.: [id number] DATE OF SERVICE: 11/11/2018 : 1950 REFERRING PHYSICIAN: Jacqui Cadet MD Mark is a patient I am following with Dr. Kamara. Patient recently presented to [facility] and was admitted with complaints of nausea, vomiting with history of coffee-ground emesis, gastric distention, history of Crohn's disease with prior small bowel resection and history of prior GI bleeds as well as bowel obstructions. Dr. Kamara performed upper endoscopy on 10/28/18 for further evaluation. The patient was found to have gastritis and non-severe reflux esophagitis, no active bleeding. Pathology demonstrated: mild chronic inflammation in the stomach, and mild acute and chronic inflammation from the GE junction biopsies. Testing for H. Pylori was negative. The patient notes no complaints since the procedure. He denies any further nausea or vomiting, any denies any abdominal pain at this time. Denies any blood in stools or dark stools. Taking PPI and Reglan per instructions from hospital. He notes also that the Reglan seems to have helped his stools become more formed. Notes no complaints. He has follow-up with his PCP Dr. Rodríguez next week. VITALS: There were no vitals taken for this visit. General: patient is alert, cooperative, pleasant and in no acute distress On examination, the abdomen is benign. Assessment IMPRESSION: s/p EGD showing gastritis and esophagitis, no obvious signs of bleeding. Clinically improved PLAN: -Continue omeprazole and reglan, dietary and lifestyle modifications as discussed -Call immediately if any recurrent symptoms -Follow up with Dr. Rodríguez next week Diagnoses: (K29.70, K20.9) Esophagitis with gastritis (primary encounter diagnosis) I spent 20 minutes in the visit, with more than 50% of the total rwar-xr-zygu time of the visit in counseling / coordination of care. Evelyn Gillespie PA-C Referring Provider: JACQUI CADET [[id number]] Allergies As of Date: 11/11/2018 Noted Allergy Reaction PENICILLIN 07/06/2018 1 - Mental Status Change Date Reviewed: 11/11/2018 Reviewed by: Ian Shafer LPN - Fully Assessed Reason for Visit: Post Op [174] Primary Visit Diagnosis:Esophagitis with gastritis [K29.70, K20.9] Prescriptions as of 11/11/2018 Sig: TIOTROPIUM BROMIDE 1.25 MCG/A* DAILY BUDESONIDE-FORMOTEROL HFA 160* DAILY LISINOPRIL 5 MG TABLET daily DOXYCYCLINE HYCLATE 100 MG TA* PANTOPRAZOLE 20 MG TABLET,DEL* LISINOPRIL 10 MG TABLET POTASSIUM CHLORIDE ER 10 MEQ * LOPERAMIDE 2 MG CAPSULE METOCLOPRAMIDE 10 MG TABLET FUROSEMIDE 40 MG TABLET PANTOPRAZOLE 40 MG TABLET,DEL* Take 1 tablet by mouth DAILY * ATORVASTATIN 20 MG TABLET Take 20 mg by mouth once alicia* BUDESONIDE-FORMOTEROL HFA 160* Inhale 1 Puff as instructed o* LISINOPRIL 5 MG TABLET Take 5 mg by mouth once daily. MESALAMINE CR 500 MG CAPSULE,* Take 500 mg by mouth four bryan* DALIRESP 500 MCG TABLET Take 500 mcg by mouth once da* SPIRIVA WITH HANDIHALER 18 MC* Inhale 1 Puff as instructed o* MELATONIN 10 MG TABLET Take 10 mg by mouth daily at * HYDROCODONE 5 MG-ACETAMINOPHE* Take 1 tablet by mouth every * ALBUTEROL SULFATE HFA 90 MCG/* Inhale 2 Puffs as instructed * Problem List As Of Date 11/11/2018 Noted Resolved Unspecified essential hypertension [I10] Arthritis [M19.90] Emphysema [J43.9] IBS (irritable bowel syndrome) [K58.9] Diarrhea [R19.7] Crohn's disease [K50.90] Hypertension [I10] COPD (chronic obstructive pulmonary disease) (H* Bowel obstruction (HCC) [K56.609] INVALID FOR*07/13/2018 SBO (small bowel obstruction) (HCC) [K56.609] INVALID FOR*07/13/2018 Nicotine use disorder, F17.2 [F17.200] INVALID FOR* Vomiting [R11.10] INVALID FOR*07/13/2018 More... Other instructions from your clinician: -Continue omeprazole and reglan, dietary and lifestyle modifications as discussed -Call immediately if any recurrent symptoms -Follow up with Dr. Rodríguez next week The following instructions are important for you related to your office visit today with the [facility]. INSTRUCTIONS FOR PEPTIC ULCER DISEASE - ESOPHAGITIS I discussed with you the findings of your upper endoscopy. Your upper endoscopy demonstrated esophagitis Esophagitis may be a form of peptic irritation, with acid moving from the stomach to the esophagus (gastroesophageal reflux) Factors that increase acid production include smoking and stress. If you smoke, stopping smoking will often cure these issues without needing other medications. Over the counter medications including antiacids and acid reducing medications including H2 blockers (Zantac and the like) and proton pump inhibitors (prilosec, prevacid and the like) neutralize or prevent acid production. Prescription strength proton pump inhibitors (PPIs) may be necessary if your symptoms persist. Carafate may be added to PPI treatment in refractory cases. Avoiding smoking, alcohol and antiinflammatory medications are important in the successful treatment of reflux esophagitis and peptic diseases. Other factors that contribute to GERD and esophagitis are being overweight, eating large meals before laying down and certain foods. Weight loss will help improve many GERD complaints. Remaining upright after eating large meals and having a small supper will also help symptoms. Avoiding food that contribute to reflux - chocolate, caffeine, cheddar cheese may also help. Follow up upper endoscopy may be recommended to assure healing of the esophagus. New or worsening symptoms such are epigastric pain, burning, difficulty swallowing or food sticking should be relayed to your physician. Feeling full early after eating, or black, tarry, foul smelling stools are also worrisome. If you have any difficulties or concerns, you should contact our office immediately. If you note any additional difficulties, questions, or concerns, you should contact our office immediately @ [phone] and ask to be transferred to the General Surgery department. Follow-up and Disposition History Recorded Encounter Status:Closed by EVELYN GILLESPIE PA-C on 11/14/18 CBC W/DIFF, AUTOMATED Collected: 11/09/2018 Status: F Source: [place] 5:34 PM [facility] REPOSITORY TYPE CODE TESTS RESULT OUT OF RANGE REFERENCE UNITS LAB L100.1000 4.4-11.0 K/mm3 Normal WBC 9.1 LAB L100.1200 4.6-6.2 M/mm3 Low RBC 3.80 LAB L100.1300 13.0-16.5 g/dl Low HGB 10.8 LAB L100.1400 40-54 % Low HCT 36.2 LAB L100.1500 80-94 fL High MCV 95.3 LAB L100.1600 27.0-32.0 pg Normal MCH 28.4 LAB L100.1700 32-36 g/gl Low MCHC 29.8 LAB L100.1810 11.6-14.6 % Normal RDW CV 13.5 LAB L100.1820 35.1-43.9 fl High RDW SD 46.4 LAB L100.1900 150-450 K/mm3 Normal PLT 197 LAB L100.2000 6.2-12.0 fl Normal MPV 9.2 LAB L100.2100 47-70 % High NEUT% 87.1 LAB L100.2200 19-41 % Low LY% 10.0 LAB L100.2300 0-10 % Normal MONO% 2.6 LAB L100.2400 0-5 % Normal EO% 0.2 LAB L100.2500 0-1 % Normal BASO% 0.0 LAB L100.2550 0.0-0.9 % Normal IM GRAN % 0.100 Result Comment: IG% - Immature Granulocytes (promyelocytes, myelocytes and metamyelocytes) > 1% indicates that a LEFT SHIFT is Present. LAB L100.2620 2.0-7.7 X10 3/uL High Absolute Neut 7.9 LAB L100.2720 0.83-4.51 X10 3/ul Normal Absolute Lymph 0.91 Performed By: #### L100.0100 #### [facility] [address] [place], [place], [address] BASIC METABOLIC Collected: 11/09/2018 Status: F Source: [place] PROFILE ([facility]) 5:34 PM [facility] REPOSITORY TYPE CODE TESTS RESULT OUT OF RANGE REFERENCE UNITS LAB L501.0100 74-106 mg/dL High GLU 129 Result Comment: Fasting Glucose result greater than or equal to 126 mg/dL suggests DIABETES MELLITUS per A.D.A. criteria. Please note revised GLUCOSE reference range effective 2017. LAB L501.1000 7-18 mg/dL High BUN 21 LAB L501.1100 0.70-1.30 mg/dL High CREAT,SERUM 1.46 Result Comment: The validity of the calculated GFR AND GFRAA in patients over 70 years has not been determined. Clinical correlation is essential. LAB L501.1110 >60 mL/min Low EST GFR 51 Result Comment: Non- GFR Calc LAB L501.1115 >60 mL/min Normal EST GFR - AA 61 Result Comment: GFR Calc LAB L501.1300 10-20 RATIO Normal BUN/CRE 14.4 LAB L501.2200 8.5-10.1 mg/dL Low CA 8.1 LAB L501.5300 136-145 mmol/L NA Normal 145 LAB L501.5600 3.5-5.1 mmol/L Low K 3.4 LAB L501.5900 98-107 mmol/L CL Normal 102 LAB L501.6100 21.0-32.0 mmol/L High CO2 38.0 LAB L501.6200 5-15 Normal GAP 5 Performed By: #### L500.2500 #### [facility] [place], [address] [facility] Observed: 11/03/2018 Status: COMPLETED Source: [place] 12:00 AM [facility] REPOSITORY Telephone ([facility]) MARK SERRANO ([id number]) 1950 M Date Time Provider Department 11/03/18 KAY KAMARA [employer] During your visit today, we recorded the following information about you: Ian Shafer LPN 11/03/2018 8:28 AM Signed Please contact patient for post op OV [facility] with Evelyn. Joan Orozco 11/03/2018 9:05 AM Signed 1st attempt left message for patient to call back and schedule. Lita Keenan Psr 11/08/2018 1:01 PM Signed SCHEDULED 11/11/2018.Lita Keenan Psr Allergies As of Date: 11/03/2018 Noted Allergy Reaction PENICILLIN 07/06/2018 1 - Mental Status Change Date Reviewed: 07/13/2018 Reviewed by: Tali (Rn) NORMA Ascencio - Fully Assessed Reason for Visit: Appointment [186] Prescriptions as of 11/03/2018 Sig: PANTOPRAZOLE 40 MG TABLET,DEL* Take 1 tablet by mouth DAILY * ATORVASTATIN 20 MG TABLET Take 20 mg by mouth once alicia* BUDESONIDE-FORMOTEROL HFA 160* Inhale 1 Puff as instructed o* LISINOPRIL 5 MG TABLET Take 5 mg by mouth once daily. MESALAMINE CR 500 MG CAPSULE,* Take 500 mg by mouth four bryan* DALIRESP 500 MCG TABLET Take 500 mcg by mouth once da* SPIRIVA WITH HANDIHALER 18 MC* Inhale 1 Puff as instructed o* MELATONIN 10 MG TABLET Take 10 mg by mouth daily at * HYDROCODONE 5 MG-ACETAMINOPHE* Take 1 tablet by mouth every * ALBUTEROL SULFATE HFA 90 MCG/* Inhale 2 Puffs as instructed * Problem List As Of Date 11/03/2018 Noted Resolved Unspecified essential hypertension [I10] Arthritis [M19.90] Emphysema [J43.9] IBS (irritable bowel syndrome) [K58.9] Diarrhea [R19.7] Crohn's disease [K50.90] Hypertension [I10] COPD (chronic obstructive pulmonary disease) (H* Bowel obstruction (HCC) [K56.609] INVALID FOR*07/13/2018 SBO (small bowel obstruction) (HCC) [K56.609] INVALID FOR*07/13/2018 Nicotine use disorder, F17.2 [F17.200] INVALID FOR* Vomiting [R11.10] INVALID FOR*07/13/2018 More... Encounter Status:Closed by IAN SHAFER LPN on 11/03/18 DISCHARGE SUMMARY Observed: 10/30/2018 Status: F Source: [place] 2:40 PM [facility] REPOSITORY [facility] Medical Records Department [address] [place] [address] Discharge Summary 10/30/18 1417 MR#: [id number] Acct: [id number] Name: MARK SERRANO Rep #: [id number] : 1950 68 From: Es Valdez DO PCP: Marcos ABRAHAM,Jalen Chi Status: ADM IN Y Location: [place] [address] Discharge Date and Diagnosis - Problem List Patient Problems: Active and Suspected Problems (Last Reviewed 10/26/18 @ 09:22 by Dakota Gonzales MD) Hydronephrosis (Acute) Date of Admission: 10/25/18 Date of Discharge: 10/30/18 - Primary Discharge Diagnosis Active and Suspected Problems (Last Reviewed 10/26/18 @ 09:22 by Dakota Gonzales MD) Acute on chronic respiratory failure with hypoxemia and hypercapnia Acute exacerbation of COPD Small bowel obstruction Upper GI bleed secondary to gastritis and esophagitis Acute renal failure on chronic renal failure stage IV Atrial fibrillation with rapid ventricular response Gastritis Esophagitis Right hydronephrosis (Acute) - Secondary Discharge Diagnosis Chronic Problems (Last Reviewed 10/26/18 @ 09:22 by Dakota Gonzales MD) Stage 4 very severe COPD by GOLD classification (Chronic) Non-rheumatic tricuspid valve insufficiency (Chronic) mild 1+ regurg per echo 01/21/2015 done @ [facility] Atherosclerosis of coronary artery of tolowa dee-ni' heart without angina pectoris (Chronic) 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 Nicotine abuse (Chronic) - resolved....quit smoking Hypertension (Chronic) CKD (chronic kidney disease) stage 4, GFR 15-29 ml/min (Chronic) Following with Dr. Ari Reed [facility] Course and Treatment Imaging Results: Clinical Impression(s) from Imaging Studies Chest X-Ray 10/25/18 20:17 IMPRESSION: No acute cardiopulmonary abnormalities. Stable COPD with mild fibrosis. Electronically Signed: Taryn Cummins MD at 21:59 EST Tel Direct: [phone], Service support , Abdomen/Pelvis CT 10/27/18 05:37 IMPRESSION: Fluid filled markedly distended stomach and duodenum with the point of obstruction somewhere anterior to the aorta. 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 Bilateral calyceal calculi. A right-sided hydronephrosis without any demonstrable obstructing calculus right ureter Plate atelectatic changes in the right lung base Electronically Signed: Chuck Lyons MD at 6:29 EST Tel , Service support , KUB X-Ray 10/27/18 07:51 IMPRESSION: The NG tube is coiled in the esophagus and should be repositioned. Electronically Signed: Jason Rocha MD at 3:19 EST , Service support , Chest X-Ray 10/27/18 07:56 IMPRESSION: Nasogastric tube is coiled in the distal esophagus. This should be retracted and repositioned. No acute cardiopulmonary disease. Electronically Signed: Shanna Aguillon MD at 0:01 EST Tel , Service support , KUB X-Ray 10/27/18 07:56 IMPRESSION: The NG tube is in the stomach. Electronically Signed: Jason Rocha MD at 3:33 EST , Service support , Abdomen CT 10/27/18 08:06 IMPRESSION: The tip of the nasogastric tube is in the distal portion of the stomach. There is residual distention of the stomach with retained food particles. There is no evidence of a small bowel obstruction at this time. Small bilateral renal calculi. Electronically Signed: Ned Denny MD at 12:43 EST Tel [phone], Service support , KUB X-Ray 10/29/18 18:35 IMPRESSION: 1. Removal of enteric tube. No dilated loops of small bowel. Colonic gas confirmed. Electronically Signed: Geovanny Crockett MD at 18:59 EST , Service support , Dr. Kay Kamara[facility] general surgery Dr. Webber and Dr. Velasquez-[place] [facility] Operations: None Procedures: EGD - Gastritis and esophagitis, normal duodenum and normal first part of the jejunum with no evidence of obstruction Summary of Care Provided: Initialization Date: 10/27/18 08:24 The pt is a 68 YO male with a PMH of CAD, Crohn's disease, multiple GI bleeds in the past, previous bowel resection, chronic respiratory failure with hypoxemia on 3 L of nasal O2 chronically, former smoking history, stage IV chronic renal failure and hypertension who presented to the emergency department at [facility] on 10/25/2018 complaining of increasing shortness of breath associated with a cough productive of green sputum over the preceding week. Pulse ox in the emergency room on 6 L was 85%. He was tachycardic, tachypneic and had accessory muscle use. He was placed on BiPAP in the emergency department and received steroids and aerosolized bronchodilators. CBC showed a white blood cell count of 7.0 with 77% neutrophils. Hemoglobin and platelets were within normal limits. An ABG done on BiPAP with a 30% FiO2 showed a pH of 7.37, PCO2 of 59 and a PO2 of 70. Serum bicarb was elevated at 33 and the BUN was 18 with a creatinine of 1.59. Lactic acid was 1.7. Troponin was less than 0.015. The chest x-ray showed marked flattening of the diaphragm with no infiltrates, pulmonary vascular congestion or pleural effusions. His last echocardiogram was in December 2014 showed a 60% ejection fraction with no regional wall motion abnormalities. His last visit with Dr. Jimenez was in May and he had no symptoms of angina or congestive heart failure. He was admitted to the hospital with a diagnosis of acute respiratory failure on chronic respiratory failure with hypoxemia and hypercapnia. He was treated for an acute exacerbation of COPD with aerosolized bronchodilators and high-dose intravenous steroids. A respiratory panel was negative. Sputum grew normal respiratory connie. No blood cultures were sent. Early in the morning on 10/27/2018 the patient began vomiting. The vomitus was coffee-ground in nature. He received a dose of 10 mg of Reglan. A non-contrasted CT scan of the patient's abdomen and pelvis was obtained and showed a fluid- filled markedly dilated stomach and duodenum with the point of obstruction somewhere anterior to the aorta. SMA syndrome was suspected however, he did not receive any IV contrast or oral contrast and this is only a suspicion. There was right-sided hydronephrosis with no demonstrable obstructing calculus. An NG tube was placed and drained dark brown/black gastric contents with some red blood in the NG tube. Hemoglobin in the a.m. on 10/27/2018 was 12.6 and BMP showed the CO2 to be up to 36. His creatinine had increased from 1.59 on 10/25/2018 to 2.16 on 10/27. Dr. Kamara was consulted for SBO. A CT was repeated with oral contrast only and the barium flowed through to the cecum with no evidence of a bowel obstruction. He had a EGD on 10/28/18 and this showed gastritis and nonsevere reflux esophagitis. The stomach and the esophagus were biopsied. The duodenum was normal and the portion of the jejunum that was examined was also normal. He was started on a liquid diet and this was advanced as tolerated to a low residue diet. She also diagnosed him with severe malnutrition and he was instructed on appropriate caloric and protein intact. He was seen by the cafe aide prior to discharge and educated on a low residue diet. He saw nephrology in the hospital and they felt the right side hydronephrosis may be contributing to worsening kidney function. They also felt he needed hydrated and more fluids and an IV was started. A bladder scan did not reveal a problem with urine retention. The creatinine on the day of DC was 1.33 and this is within his baseline. He was discharged home on 10/30/18 and will follow up with Dr. Rodríguez in 1-2 weeks. He will follow up with Dr. Kamara in 1 week to discuss the results of the biopsies. He was referred to Dr. Ochoa to be evaluated for urinary tract obstruction with hydronephrosis on the right. He was given prescriptions for a tapering dose of Prednisone, Protonix, Reglan and a higher dose of Lisinopril to better control the blood pressure. He did have AF with RVR while in the hospital but converted to NSR. He was not started on anticoagulation due to UGI bleed and the AF is presumed to be due to stress, steroids and ELYTE imbalance. General: Alert, oriented 3, cooperative, yesterday but he does not recall the sequence of events yesterday and he tells me that he vomited brown stuff . At home he consumes a soft diet because he has no teeth. He eats salads and whole wheat bread. He is hard of hearing Neck: Supple, trachea midline, no enlarged cervical nodes, no enlarged supraclavicular nodes Lungs: Diminished throughout, symmetric chest expansion, no rales, no wheezes, no rhonchi, no conversational dyspnea, no accessory muscle use Heart: Regular rhythm, tachycardic, normal S1, normal S2, no murmur, no gallop, no rub Abdomen: Soft, NT, mild distention with increased tympany, bowel sounds present Extremities: No clubbing, no peripheral edema, no cyanosis This note was generated with [employer] dictation software. It may contain incorrect words, spelling, and punctuation that were not noted in checking the note before signing. Patient Problems: Active and Suspected Problems (Last Reviewed 10/26/18 @ 09:22 by Dakota Gonzales MD) Hydronephrosis (Acute) - Physical Exam Vital Signs Temp Pulse Resp BP Pulse Ox 97.8 F 84 21 H 126/70 H 97 10/30/18 09:07 10/30/18 14:08 10/30/18 14:08 10/30/18 09:07 10/30/18 09:07 Oxygen Flow Rate (L/min) 2 Oxygen Delivery Method Nasal Cannula Weight: 90 lb 13.287 oz Body Mass Index (BMI) 15.0 Intake and Output for Last 24 Hours Intake Total 1797.2 / 1797.2 3500 / 3500 915 / 915 Output Total 650 / 650 725 / 725 869 / 869 Balance 1147.2 / 1147.2 2775 / 2775 46 / 46 Microbiology Past 72 Hours 10/26/18 15:25 Gram Stain - Final Sputum, Expectorated/Coughed Respiratory Culture - Preliminary Laboratory Tests Past 24 Hrs WBC 5.6 RBC 3.27 L Hgb 9.4 L Hct 30.4 L Discharge Activity: - - Avoid exposure to any strong smells such as bleach, cleaning products, strong colognes or perfumes, paint fumes and smoke of any kind. Avoid sudden exposure to cold air because this can cause bronchospasm. You may want to cover your mouth when you go outside in the winter. Avoid exposure to anyone who is sick with a cough or sore throat. Call your doctor if you observe: Fever of 101 or Higher, Shortness of breath, Dizziness, Fainting spells, Swelling in the ankles, Chest pain, Calf discomfort, - - Recurrent nausea/vomiting/bloating Home Medications: Medications to take at Discharge Loperamide [Imodium] 2 mg PO DAILY 01/17/15 Mesalamine [Pentasa] 500 mg PO DAILY 12/20/17 albuterol sulfate 2.5 mg/3 mL (0.083 %) solution for nebulization 2.5 mg INHALATION Q4H PRN PRN #180 vial 06/23/18 albuterol sulfate HFA 90 mcg/actuation aerosol inhaler 2 puff INHALATION Q4H PRN g 06/23/18 Guaifenesin [Mucinex] 600 mg PO BID 10/25/18 Atorvastatin Calcium [Lipitor] 20 mg PO QDAY 10/26/18 Budesonide/Formoterol 160/4.5 [Symbicort 160/4.5 Mcg Inhaler (SP)] 1 puff INHALATION DAILY 10/26/18 Lisinopril [Prinivil] 5 mg PO QDAY 10/26/18 Tiotropium [place] [Spiriva 18 MCG] 1 cap INHALATION DAILY 10/26/18 Lisinopril [Zestril] 10 mg PO DAILY #30 tablet 10/30/18 Metoclopramide [Reglan] 5 mg PO TIDAC #90 tablet 10/30/18 Pantoprazole Sodium [Protonix] 20 mg PO BID #60 tablet 10/30/18 Prednisone 10 mg PO UD #30 tab 10/30/18 Following Prescrptions Were Given to Patient: Lisinopril [Zestril] 10 mg PO DAILY #30 tablet Metoclopramide [Reglan] 5 mg PO TIDAC #90 tablet Prednisone 10 mg PO UD #30 tab Pantoprazole Sodium [Protonix] 20 mg PO BID #60 tablet Primary Care Physician: Jalen Rodríguez Chi, MD [Primary Care Provider] - Please follow up with your Primary Care Physician in: 10-14 days Please Follow Up With: Kay Kamara MD When: 1 week Please Follow Up With: Yoan Ochoa MD When: call the office to make an appointment to be evaluated for hydronephrosis Patient Instructions: Low-Residue Diet Disposition: Home Minutes spent on discharge:: 40 Patient Condition:: Stable Medical Necessity - Tobacco Use Smoking Status: Former smoker - He reports quitting smoking about a month ago. Meaningful Use Info Meaningful Use Diagnoses (Choose all that apply): None applicable Code Visit Inpatient ANUJA: 78303 Disch Hosp 10/30/18 1440 <Electronically signed by Es Valdez DO> Date Es Valdez DO Cosigner Signature (if applicable): Date CC: Yelena Valdez; Yoan Ochoa MD; Kay Kamara MD; Jalen Rodríguez MD Signed DISCHARGE INSTRUCTION Observed: 10/30/2018 Status: F Source: [place] 2:17 PM [facility] REPOSITORY [facility] Medical Records Department [address] [place] [id number] Instructions for Home/Discharge Instructions 10/30/18 1402 MR#: [id number] Acct: [id number] Name: MARK SERRANO Rep #: [id number] : 1950 68 From: Es Valdez DO PCP: Marcos ABRAHAM,Jalen Mary Status: ADM IN - Discharge Diagnoses Current Active Problems: Current Active and Chronic Problems (Last Reviewed 10/26/18 @ 09:22 by Dakota Gonzales MD) Acute exacerbation of COPD Acute on chronic respiratory failure with hypoxemia and hypercarbia Small bowel obstruction Gastritis and esophagitis Atrial fibrillation with rapid ventricular response Acute kidney injury superimposed on chronic kidney disease (Chronic) Hydronephrosis (Acute) You will use the following diet at home:: Other - low residue, no caffeine but can drink decaf coffee Your food should be the consistency of: Mechanical soft (ground) Your liquids should be the consistency of: Regular/Thin Discharge Activity: - - Avoid exposure to any strong smells such as bleach, cleaning products, strong colognes or perfumes, paint fumes and smoke of any kind. Avoid sudden exposure to cold air because this can cause bronchospasm. You may want to cover your mouth when you go outside in the winter. Avoid exposure to anyone who is sick with a cough or sore throat. Call your doctor if you observe: Fever of 101 or Higher, Shortness of breath, Dizziness, Fainting spells, Swelling in the ankles, Chest pain, Calf discomfort, - - Recurrent nausea/vomiting/bloating Instructions: Low-Residue Diet Additional Instructions: 1. I think that the nausea and vomiting and the small bowel obstructions are happening because you either have some scarring from old surgery or you have a narrowing in the small intestine due to crohn's/scarring. We started you on a medication called metoclopramide, also known as Reglan. He will take this medication 3 times daily before meals. This medication helps to empty your stomach so that you are not bloated. Too much fiber can make a big clump in a small intestine and cause a bowel obstruction. You should stick to a low fiber diet. 2. The right kidney is enlarged so I am going to refer you to a urologist to get checked out. 3. When Dr. Kamara looked in your stomach you had inflammation of the stomach lining and of the esophagus. I am sending you home on a medication to decrease the acid in your stomach and help with reflux/heartburn. the medicine is called Protonix and you will take it in the morning and before bed. Dr. Kamara did some biopsies of the stomach and the esophagus and I am going to have you follow up with him in 1 week to go over the results of the biopsies. Allergies/Adverse Reactions: Allergies Penicillins Adverse Reaction (Verified 10/25/18 20:16) Other Medications to take at Discharge Loperamide [Imodium] 2 mg PO DAILY 01/17/15 Mesalamine [Pentasa] 500 mg PO DAILY 12/20/17 albuterol sulfate 2.5 mg/3 mL (0.083 %) solution for nebulization 2.5 mg INHALATION Q4H PRN PRN #180 vial 06/23/18 albuterol sulfate HFA 90 mcg/actuation aerosol inhaler 2 puff INHALATION Q4H PRN g 06/23/18 Guaifenesin [Mucinex] 600 mg PO BID 10/25/18 Atorvastatin Calcium [Lipitor] 20 mg PO QDAY 10/26/18 Budesonide/Formoterol 160/4.5 [Symbicort 160/4.5 Mcg Inhaler (SP)] 1 puff INHALATION DAILY 10/26/18 Lisinopril [Prinivil] 5 mg PO QDAY 10/26/18 Tiotropium [place] [Spiriva 18 MCG] 1 cap INHALATION DAILY 10/26/18 Lisinopril [Zestril] 10 mg PO DAILY #30 tablet 10/30/18 Metoclopramide [Reglan] 5 mg PO TIDAC #90 tablet 10/30/18 Prednisone 10 mg PO UD #30 tab 10/30/18 The following prescriptions were given: Lisinopril [Zestril] 10 mg PO DAILY #30 tablet Metoclopramide [Reglan] 5 mg PO TIDAC #90 tablet Prednisone 10 mg PO UD #30 tab Primary Care Physician: Jalen Rodríguez Chi, MD [Primary Care Provider] - Please follow up with your Primary Care Physician in: 10-14 days Test Results: Test results from this visit will be discussed in further detail at your follow-up appointment, if applicable. Please Follow Up With: Kay Kamara MD When: 1 week Please Follow Up With: Yoan Ochoa MD When: call the office to make an appointment to be evaluated for hydronephrosis Proposed Discharge Date: 10/30/18 10/30/18 1417 <Electronically signed by Es Valdez DO> Date Es Valdez DO CC: Lindsey Velasquez MD; Yoan Ochoa MD; Kay Kamara MD; Jalen Rodríguez MD Signed PROGRESS Observed: 10/30/2018 Status: COMPLETED Source: [place] 1:04 PM [facility] REPOSIT[facility] O ID: [id number] Author: Kay Kamara Service: (none) Author Type: Physician Type: Progress Notes Filed: 10/30/2018 1:09 PM Note Text: OPERATIVE NOTATION FOR [facility] SURGICAL PROCEDURE. October 28, 2018 Mark Serrano 1950 [id number] male PROCEDURE: EGD WITH BIOPSY - [id number] SURGEON: Alva Kamara M.D. FACS [employer] NURSERY: None DEPT: [facility] PROVIDER: [id number] Kamara MD POS: [id number] DIAGNOSIS: (R11.11) Vomiting without nausea, intractability of vomiting not specified, unspecified vomiting type (primary encounter diagnosis) ASA CLASS: 3 - Severe FINDINGS: COMPLICATIONS: None PMHx - PAST MEDICAL HISTORY Diagnosis Date - Arthritis - COPD (chronic obstructive pulmonary disease) (HCC) - Crohn's disease (HCC) - Depression - Diarrhea - Emphysema - Hypertension - IBS (irritable bowel syndrome) - Unspecified essential hypertension COMORBIDITIES - Chronic Pulmonary, COPD, Coagulopathy, Anemia, CAD, HTN, Hx Cardiac Surgery, Cr>2mg and NIDDM Post Op Occurrences - None Wound Classification - Clean Contaminated Operative note dictated in the [facility] dictation system. Kay Kamara MD CBC-COMPLETE BLOOD CNT Collected: 10/30/2018 Status: F Source: [place] NO DIFF 6:15 AM [facility] REPOSITORY TYPE CODE TESTS RESULT OUT OF RANGE REFERENCE UNITS LAB L100.1000 4.4-11.0 K/mm3 Normal WBC 5.6 LAB L100.1200 4.6-6.2 M/mm3 Low RBC 3.27 LAB L100.1300 13.0-16.5 g/dl Low HGB 9.4 LAB L100.1400 40-54 % Low HCT 30.4 LAB L100.1500 80-94 fL Normal MCV 93.0 LAB L100.1600 27.0-32.0 pg Normal MCH 28.7 LAB L100.1700 32-36 g/gl Low MCHC 30.9 LAB L100.1810 11.6-14.6 % Normal RDW CV 12.4 LAB L100.1820 35.1-43.9 fl Normal RDW SD 40.6 LAB L100.1900 150-450 K/mm3 Normal PLT 150 LAB L100.2000 6.2-12.0 fl Normal MPV 9.6 Performed By: #### L100.0500 #### [facility] [address] [place], [address] BASIC METABOLIC Collected: 10/30/2018 Status: F Source: [place] PROFILE (BMP) 6:15 AM [facility] REPOSITORY TYPE CODE TESTS RESULT OUT OF RANGE REFERENCE UNITS LAB L501.0100 74-106 mg/dL High GLU 134 Result Comment: Fasting Glucose result greater than or equal to 126 mg/dL suggests DIABETES MELLITUS per A.D.A. criteria. Please note revised GLUCOSE reference range effective 2017. LAB L501.1000 7-18 mg/dL High BUN 35 LAB L501.1100 0.70-1.30 mg/dL High CREAT,SERUM 1.33 Result Comment: The validity of the calculated GFR AND GFRAA in patients over 70 years has not been determined. Clinical correlation is essential. LAB L501.1110 >60 mL/min Low EST GFR 56 Result Comment: Non- GFR Calc LAB L501.1115 >60 mL/min Normal EST GFR - AA 68 Result Comment: GFR Calc LAB L501.1255 ml/min Normal Estimated CRCL 30.12 LAB L501.1300 10-20 RATIO High BUN/CRE 26.3 LAB L501.2200 8.5-10 mg/dL Low .1 CA 8.1 LAB L501.5300 136-14 mmol/L Normal 5 NA 142 LAB L501.5600 3.5-5. mmol/L Normal 1 K 3.9 LAB L501.5900 98-107 mmol/L Normal CL 106 LAB L501.6100 21.0-3 mmol/L Normal 2.0 CO2 29.0 LAB L501.6200 5-15 Normal GAP 7 Performed By: #### L500.2500 #### [facility] [address] [place], [address] ABDOMEN SINGLE VIEW Observed: 10/29/2018 Status: F Source: [place] 6:19 PM [facility] REPOSITORY [facility] Imaging Services [address] [place] [address] Abdomen Single View MR#: [id number] Acct: [id number] Name: MARK SERRANO Rep #: [id number] : 1950 M 68 From: Geovanny Crockett MD PCP: Marcos ABRAHAM,Jalen Mary Status: ADM IN Study: Abdomen Single View Date of Exam: 10/29/18 Exam# [id number] Ordering Dr: Es Valdez DO STUDY: X-RAY - ABDOMEN/PELVIS REASON FOR EXAM: Male, 68 years old. Abdominal distention TECHNIQUE: Two AP supine views of the abdomen and pelvis. COMPARISON: CT from 10/27/2018 FINDINGS: Normal visualized lung bases. Enteric tube has been removed. Nondilated bowel gas pattern with colonic gas confirmed. There is no demonstrated free abdominal air. The visualized liver, spleen and kidneys are grossly normal in size and morphology. Normal soft tissue structures. Normal visualized osseous structures. RAD/Abdomen Single View IMPRESSION: 1. Removal of enteric tube. No dilated loops of small bowel. Colonic gas confirmed. Electronically Signed: Geovanny Crockett MD at 18:59 EST , Service support , CC: Yelena Valdez; Jalen Rodríguez MD World [employer] Counselor: Signed CBC-COMPLETE BLOOD CNT Collected: 10/29/2018 Status: F Source: [place] NO DIFF 6:57 AM [facility] REPOSITORY TYPE CODE TESTS RESULT OUT OF RANGE REFERENCE UNITS LAB L100.1000 4.4-11.0 K/mm3 Normal WBC 4.4 LAB L100.1200 4.6-6.2 M/mm3 Low RBC 3.35 LAB L100.1300 13.0-16.5 g/dl Low HGB 9.5 LAB L100.1400 40-54 % Low HCT 30.6 LAB L100.1500 80-94 fL Normal MCV 91.3 LAB L100.1600 27.0-32.0 pg Normal MCH 28.4 LAB L100.1700 32-36 g/gl Low MCHC 31.0 LAB L100.1810 11.6-14.6 % Normal RDW CV 12.7 LAB L100.1820 35.1-43.9 fl Normal RDW SD 42.5 LAB L100.1900 150-450 K/mm3 Normal PLT 152 LAB L100.2000 6.2-12.0 fl Normal MPV 9.6 Performed By: #### L100.0500 #### [facility] [address], [address] BASIC METABOLIC Collected: 10/29/2018 Status: F Source: [place] PROFILE (BMP) 6:57 AM [facility] REPOSITORY TYPE CODE TESTS RESULT OUT OF RANGE REFERENCE UNITS LAB L501.0100 74-106 mg/dL High GLU 154 Result Comment: Fasting Glucose result greater than or equal to 126 mg/dL suggests DIABETES MELLITUS per A.D.A. criteria. Please note revised GLUCOSE reference range effective 2017. LAB L501.1000 7-18 mg/dL High BUN 40 LAB L501.1100 0.70-1.30 mg/dL High CREAT,SERUM 1.48 Result Comment: The validity of the calculated GFR AND GFRAA in patients over 70 years has not been determined. Clinical correlation is essential. LAB L501.1110 >60 mL/min Low EST GFR 50 Result Comment: Non- GFR Calc LAB L501.1115 >60 mL/min Normal EST GFR - AA 60 Result Comment: GFR Calc LAB L501.1255 ml/min Normal Estimated CRCL 27.06 LAB L501.1300 10-20 RATIO High BUN/CRE 27.0 LAB L501.2200 8.5-10 mg/dL Normal .1 CA 8.5 LAB L501.5300 136-14 mmol/L Normal 5 NA 141 LAB L501.5600 3.5-5. mmol/L Normal 1 K 4.5 LAB L501.5900 98-107 mmol/L Normal CL 103 LAB L501.6100 21.0-3 mmol/L Normal 2.0 CO2 32.0 LAB L501.6200 5-15 Normal GAP 6 Performed By: #### L500.2500 #### [facility] [address] [facility] [address] [place], [place], [address] 12 LEAD ELECTROCARDIOGRAM Observed: 10/28/2018 Status: F Source: [place] 2:42 PM [facility] REPOSITORY [facility] Cardiovascular Services [address] [place] [address] 12 Lead EKG 10/27/18 0000 MR#: [id number] Acct: [id number] Name: MARK SERRANO Rep #: [id number] : 1950 68 From: Yemi Leal MD Attending Dr: Yelena Valdez Status: ADM IN Ordering Dr: Dakota Gonzales MD Date: 10/27/18 Location: [facility] Sex: M C Admitted: 10/26/18 Test Reason : SOB Blood Pressure : / mmHG Vent. Rate : 088 BPM Atrial Rate : 088 BPM P-R Int : 152 ms QRS Dur : 080 ms QT Int : 346 ms P-R-T Axes : 085 -64 070 degrees QTc Int : 418 ms Normal sinus rhythm with sinus arrhythmia Right atrial enlargement Possible Pulmonary disease pattern Left anterior fascicular block Abnormal ECG Confirmed by STEVE ABRAHAM, YEMI ([id number]), video effects editor CRISTO SANTOS ([id number]) on 10/28/2018 2:42:32 PM Referred By: DR DUNCAN Confirmed By:YEMI LEAL MD 10/28/18 1442 Date Yemi Leal MD CC: Yelena Valdez; Dakota Gonzales MD; Jalen Rodríguez MD Signed OPERATIVE REPORT - Observed: 10/28/2018 Status: F Source: [place] [facility] 11:55 AM [facility] REPOSITORY [facility] Medical Records Department [address] [place] [address] Operative Report - Endoscopy MR#: [id number] Acct: [id number] Name: MARK SERRANO Rep #: [id number] : 1950 68 From: Kay Kamara MD PCP: Jalen Rodríguez MD, Chi Status: ADM IN Patient Name: Mark Serrano Procedure Date: 10/28/2018 10:29 AM Date of : 1950 Age: 68 Procedure: Upper GI endoscopy Indications: Nausea with vomiting Providers: Kay Kamara MD Medicines: Monitored Anesthesia Care Patient Profile: This is a 68 year old male. Refer to note in patient chart for documentation of history and physical. Complications: No immediate complications. Procedure: Pre-Anesthesia Assessment: - Prior to the procedure, a History and Physical was performed, and patient medications and allergies were reviewed. The patient is competent. The risks and benefits of the procedure and the sedation options and risks were discussed with the patient. All questions were answered and informed consent was obtained. Patient identification and proposed procedure were verified by the physician, the nurse and the guest services agent in the procedure room. Mental Status Examination: alert and oriented. Airway Examination: normal oropharyngeal airway and neck mobility. Respiratory Examination: clear to auscultation. CV Examination: normal. Prophylactic Antibiotics: The patient does not require prophylactic antibiotics. Prior Anticoagulants: The patient has taken no previous anticoagulant or antiplatelet agents. ASA Grade Assessment: IV - A patient with severe systemic disease that is a constant threat to life. After reviewing the risks and benefits, the patient was deemed in satisfactory condition to undergo the procedure. The anesthesia plan was to use monitored anesthesia care (MAC). Immediately prior to administration of medications, the patient was re-assessed for adequacy to receive sedatives. The heart rate, respiratory rate, oxygen saturations, blood pressure, adequacy of pulmonary ventilation, and response to care were monitored throughout the procedure. The physical status of the patient was re-assessed after the procedure. After obtaining informed consent, the endoscope was passed under direct vision. Throughout the procedure, the patient's blood pressure, pulse, and oxygen saturations were monitored continuously. The gastroscope was introduced through the mouth, and advanced to the jejunum. The upper GI endoscopy was accomplished without difficulty. The patient tolerated the procedure well. Scope In: 11:40:44 AM Scope Out: 11:45:35 AM Total Procedure Duration Time 0 hours 4 minutes 51 seconds Findings: The examined jejunum was normal. Biopsies were taken with a cold forceps for histology. The examined duodenum was normal. Patchy mild inflammation characterized by erythema and granularity was found in the entire examined stomach. Biopsies were taken with a cold forceps for histology. Biopsies were taken with a cold forceps for Helicobacter pylori testing using PyloriTek test. Biopsies were taken with a cold forceps for histology. Non-severe esophagitis with no bleeding was found. Biopsies were taken with a cold forceps for histology. Impression: - Normal examined jejunum. Biopsied. - Normal examined duodenum. - Gastritis. Biopsied. - Non-severe reflux esophagitis. Biopsied. Recommendation: - Await pathology results. - Clear liquid diet. - Continue present medications. Procedure Code(s): --- Professional --- 86507, Esophagogastroduodenoscopy, flexible, transoral; with biopsy, single or multiple CPT copyright 2017 [employer]. All rights reserved. The codes documented in this report are preliminary and upon air force senior officer review may be revised to meet current compliance requirements. Kay Kamara MD 10/28/2018 11:55:22 AM This report has been signed electronically. Number of Addenda: 0 Note Initiated On: 10/28/2018 10:29 AM 10/28/18 1155 Date Kay Kamara MD Cosigner Signature: Date (if indicated) CC: Lindsey Velasquez MD; Yelena Valdez; Kay Kamara MD; Jalen Rodríguez MD Date Dictated: 10/28/18 1029 Date Transcribed: World Travel Counselor: HILL Signed IMMUNOHISTOCHEMISTRY Observed: 10/28/2018 Status: F Source: [place] 11:00 AM [facility] REPOSITORY Patient: MARK SERRANO : 1950 (68/M) Acct Num: [id number] Phys: Yelena Valdez Unit Num: [id number] Loc: U [id number] Specimen: [id number] Received: 10/28/18 - 1316 Spec Type: IMMUNO TISSUES 1 TISSUES: B. Stomach, NOS SPECIMEN INFORMATION: Tissue Source: B - Antral biopsy Clinical Info: Nausea and vomiting Specimen Number: [id number] CPT code: 31916 METHODOLOGY: Deparaffinized sections of prefer/formalin-fixed tissue or PAP/DQ stained slides are incubated with monoclonal/polyclonal antibodies/oligonucleotide probes. Localization is made via biotin free immunoperoxidase method. Appropriate controls are performed and reacted as expected. Results on target cell population are indicated in the following table: RESULTS: ANTIBODY / CLONE RESULT Block B H Pylori (polyclonal) negative These tests were developed and their performance characteristics determined by [facility]. They may not have been cleared or approved by the U.S. Food and Drug Administration. The FDA has determined that such clearance or approval is not necessary. INTERPRETATION: B. Antral biopsy: Negative for Helicobacter pylori organisms. AM:hill 10/31/18 PHYSICIAN AND INSTITUTION [address] [address] Signed Alvaro Anguiano, 10/31/18 <signature on file> Performed By: #### PIMM #### [facility] [address] [place] [address]. [place], [place], [address] CBC-COMPLETE BLOOD CNT Collected: 10/28/2018 Status: F Source: [place] NO DIFF 6:40 AM [facility] REPOSITORY TYPE CODE TESTS RESULT OUT OF RANGE REFERENCE UNITS LAB L100.1000 4.4-11.0 K/mm3 Normal WBC 6.8 LAB L100.1200 4.6-6.2 M/mm3 Low RBC 3.56 LAB L100.1300 13.0-16.5 g/dl Low HGB 10.1 LAB L100.1400 40-54 % Low HCT 33.3 LAB L100.1500 80-94 fL Normal MCV 93.5 LAB L100.1600 27.0-32.0 pg Normal MCH 28.4 LAB L100.1700 32-36 g/gl Low MCHC 30.3 LAB L100.1810 11.6-14.6 % Normal RDW CV 13.1 LAB L100.1820 35.1-43.9 fl High RDW SD 44.8 LAB L100.1900 150-450 K/mm3 Normal PLT 164 LAB L100.2000 6.2-12.0 fl Normal MPV 9.6 Performed By: #### L100.0500 #### [facility] [address] [place] [address]. [place], [place], [address] BASIC METABOLIC Collected: 10/28/2018 Status: F Source: [place] PROFILE (BMP) 6:40 AM [facility] REPOSITORY TYPE CODE TESTS RESULT OUT OF RANGE REFERENCE UNITS LAB L501.0100 74-106 mg/dL High GLU 129 Result Comment: Fasting Glucose result greater than or equal to 126 mg/dL suggests DIABETES MELLITUS per A.D.A. criteria. Please note revised GLUCOSE reference range effective 2017. LAB L501.1000 7-18 mg/dL High BUN 46 LAB L501.1100 0.70-1.30 mg/dL High CREAT,SERUM 1.63 Result Comment: The validity of the calculated GFR AND GFRAA in patients over 70 years has not been determined. Clinical correlation is essential. LAB L501.1110 >60 mL/min Low EST GFR 45 Result Comment: Non- GFR Calc LAB L501.1115 >60 mL/min Low EST GFR - AA 54 Result Comment: GFR Calc LAB L501.1255 ml/min Normal Estimated CRCL 24.57 LAB L501.1300 10-20 RATIO High BUN/CRE 28.2 LAB L501.2200 8.5-10 mg/dL Normal .1 CA 8.6 LAB L501.5300 136-14 mmol/L Normal 5 NA 143 LAB L501.5600 3.5-5. mmol/L Normal 1 K 4.7 LAB L501.5900 98-107 mmol/L Normal CL 103 LAB L501.6100 21.0-3 mmol/L High 2.0 CO2 33.0 LAB L501.6200 5-15 Normal GAP 7 Performed By: #### L500.2500, L501.2300, L501.5200 #### [facility] [address] [facility] [place], [place], [address] PHOSPHORUS Collected: 10/28/2018 Status: F Source: [place] 6:40 AM [facility] REPOSITORY TYPE CODE TESTS RESULT OUT OF RANGE REFERENCE UNITS LAB L501.2300 2.5-4.9 mg/dL High PHOS 5.0 Performed By: #### L500.2500, L501.2300, L501.5200 #### [facility] [address] [facility] [place], [address] MAGNESIUM Collected: 10/28/2018 Status: F Source: [place] 6:40 AM [facility] REPOSITORY TYPE CODE TESTS RESULT OUT OF RANGE REFERENCE UNITS LAB L501.5200 1.6-2.6 mg/dL Normal MG 1.9 Performed By: #### L500.2500, L501.2300, L501.5200 #### [facility] [place], [address] EGD ([facility]) Observed: 10/28/2018 Status: F Source: [place] 12:00 AM [facility] REPOSITORY Patient: MARK SERRANO : 1950 (68/M) Acct Num: [id number] Phys: Yelena Valdez Unit Num: [id number] Loc: [facility] [id number] Specimen: [id number] Received: 10/28/18 - 1314 Spec Type: EGD BIOPSY TISSUES 1 TISSUES: A. Jejunum, NOS B. Gastric mucous membrane C. Gastric mucous membrane COMMENT B. The results of immunohistochemistry for Helicobacter pylori will be reported separately ([id number]). C. GMS stain with matched control was used in the evaluation of this case. GROSS DESCRIPTION A - Received in fixative is one container labeled with the patient's name and designated jejunum. The specimen consists of one irregular fragment of light lombardi soft tissue that measures 0.2 x 0.2 x 0.1 cm. The specimen is totally submitted in one cassette. B - Received in fixative is one container labeled with the patient's name and designated antrum biopsy. The specimen consists of one irregular fragment of light lombardi soft tissue that measures 0.3 x 0.2 x 0.1 cm. The specimen is totally submitted in one cassette. C - Received in fixative is one container labeled with the patient's name and designated GE junction biopsy. The specimen consists of one irregular fragment of light lombardi soft tissue that measures 0.2 x 0.2 x 0.1 cm. The specimen is totally submitted in one cassette. / SJ:hill 10/28/18 TC:2 CPT: 52901 x3, [address] HEADER OPERATION: [place] PRE-OP DIAGNOSIS: Nausea and vomiting, possible duodenal obstruction, superior mesenteric artery syndrome TISSUE SUBMITTED: A - Jejunum biopsy, B - Antral biopsy for H. pylori and path , C - GE junction biopsy MICROSCOPIC DESCRIPTION Slides are reviewed. MICROSCOPIC DIAGNOSIS A. Jejunum, biopsy: No pathologic diagnosis. B. Gastric antrum, biopsy: Mild chronic inflammation. C. Gastroesophageal junction, biopsy: Mild chronic and focal acute inflammation. Negative for fungal organisms. AM:hill 10/31/18 Signed Alvarorenetta GillespieDO baldev 10/31/18 <signature on file> Performed By: #### PEGD #### [facility] [place], [address] CNOP Observed: 10/28/2018 Status: COMPLETED Source: [place] 12:00 AM [facility] REPOSITORY Operative Note (Enc) (GENSWS) Progress Notes: Kay Kamara MD 10/30/2018 1:09 PM Signed OPERATIVE NOTATION FOR [facility] SURGICAL PROCEDURE. October 28, 2018 Mark Serrano 1950 [id number] male PROCEDURE: EGD WITH BIOPSY - [id number] SURGEON: Alva Kamara M.D. FACS [employer] NURSERY: None DEPT: WQ PROVIDER: I95=AicejgmKay Kamara MD POS: [id number]=CMAVIMRKH DIAGNOSIS: (R11.11) Vomiting without nausea, intractability of vomiting not specified, unspecified vomiting type (primary encounter diagnosis) ASA CLASS: 3 - Severe FINDINGS: COMPLICATIONS: None PMHx - PAST MEDICAL HISTORY Diagnosis Date - Arthritis - COPD (chronic obstructive pulmonary disease) (HCC) - Crohn's disease (HCC) - Depression - Diarrhea - Emphysema - Hypertension - IBS (irritable bowel syndrome) - Unspecified essential hypertension COMORBIDITIES - Chronic Pulmonary, COPD, Coagulopathy, Anemia, CAD, HTN, Hx Cardiac Surgery, Cr>2mg and NIDDM Post Op Occurrences - None Wound Classification - Clean Contaminated Operative note dictated in the [facility] dictation system. Kay Kamara MD Encounter Status:Closed by KAY KAMARA MD on 10/30/18 HH, HEMOGLOBIN AND Collected: 10/27/2018 Status: F Source: [place] HEMATOCRIT 9:03 PM [facility] REPOSITORY TYPE CODE TESTS RESULT OUT OF RANGE REFERENCE UNITS LAB L100.1300 13.0-16.5 g/dl Low HGB 10.0 LAB L100.1400 40-54 % Low HCT 32.8 Performed By: #### L100.0600 #### [facility] [address] [facility] [place], [address] CONSULTATION Observed: 10/27/2018 Status: F Source: [place] 6:13 PM [facility] REPOSITORY [facility] Medical Records Department [address] [place] [address] Consultation 10/27/18 1157 MR#: [id number] Acct: [id number] Name: MARK SERRANO Rep #: [id number] : 1950 68 From: Kay Kamara MD PCP: Marcos ABRAHAM,Jalen Mary Status: ADM IN Location: [place] [id number] Reason for Consult Date of Consultation: 10/27/18 Reason for Consultation: nausea and vomiting with gastric distention History of Present Illness: The patient is a 68 year old M presents with COPD exacerbation with an additional issue of nausea and vomiting with significant gastric distention. Overall the patient is a poor historian. The patients recently noted worsening COPD. He was admitted to the hospital on October 25 tachycardic on BiPAP mask. With was felt to be an underlying COPD exacerbation of her plans for him to be discharged to home but the patient noted increased abdominal distention and vomited coffee grounds. hemoglobin at admission was 14.3. Hemoglobin this morning was 12.2. KUB demonstrated significant gastric distention. A CT scan of the abdomen pelvis without oral contrast was obtained and this demonstrated: IMPRESSION: Fluid filled markedly distended stomach and duodenum with the point of obstruction somewhere anterior to the aorta. 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 Bilateral calyceal calculi. A right-sided hydronephrosis without any demonstrable obstructing calculus right ureter Plate atelectatic changes in the right lung base The patient has similar issue of abdominal distention nausea and vomiting for which he was admitted to [facility] from 07/06/18 to 07/13/18. Discharge summary from [facility] revealed: Mr. Serrano was admitted with intractable nausea/vomiting and weight loss. There was an initial concern for small bowel obstruction as such, he was made NPO and a NG tube was placed. He was followed by GI and general surgery service. He was eventually started on TPN due to poor PO intake. A barium swallow showed prominent dilatation of the duodenum, measuring up to approximately 6 cm. The jejunum and ileum appear decompressed with concern for SMA syndrome. Gastric emptying study was unremarkable, an EGD showed no obstruction, did show some esophagitis and trauma due to NG tube insertion. Biopsies were negative for H pylori but confirmed chronic gastritis. His symptoms did eventually resolve, he was advanced to regular diet and tolerated PO intake well. His TPN was discontinued and he was discharged home in stable medical condition to continue on PPI and followup with GI as outpatient. Upper GI report from [facility] on July 07, 2018 demonstrated the following findings: FINDINGS: Initial geological scout film demonstrates a nonspecific bowel gas pattern. An enteric tube extends into the mid stomach. No obvious esophageal abnormality is identified. No stricture or mass. No reflux. There is a normal appearance of the stomach without an obvious mass or persistent contrast collection. There is normal gastric evacuation of contrast into the proximal small bowel. The duodenum is dilated, measuring up to nearly 6 cm. The remainder of the small bowel is normal in caliber. Contrast makes its way to the colon approximately 3.5 hours after ingestion. There is no significant mucosal fold thickening. No obvious mass, stricture or extrinsic mass effect. Spot films of the terminal ileum demonstrate a normal appearance. IMPRESSION: Prominent dilatation of the duodenum, measuring up to approximately 6 cm. The jejunum and ileum appear decompressed. Correlate clinically to the possibility of SMA syndrome. EGD report demonstrated: DATE OF SURGERY/PROCEDURE: 07/11/2018 INCISION/PROCEDURE START TIME: 10:33. INCISION CLOSE/PROCEDURE END TIME: 10:51. PREOPERATIVE DIAGNOSIS: See below POSTOPERATIVE DIAGNOSIS: See below SURGEON: Geovanny Sanders MD CHILDREN[employer]S TUTOR NURSERY: Mino Petersen. SURGERY/PROCEDURE: Esophagogastroduodenoscopy with biopsies. ANESTHESIA: Monitored Anesthesia Care LOG ID: [id number]. PREOPERATIVE DIAGNOSES: 1. Nausea and vomiting. 2. 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 POSTOPERATIVE DIAGNOSES: 1. No duodenal obstruction seen, tortuous descending duodenum, but no evidence of any obstruction. 2. Grade B esophagitis at GE junction. 3. NG tube trauma. CONSENT: Risks and benefits of the procedure were discussed with the patient and consent was obtained. ENDOSCOPE: Olympus adult gastroscope. MEDICATIONS: MAC sedation. DESCRIPTION OF THE PROCEDURE: The procedure was performed in the endoscopy suite. The patient was placed in left lateral decubitus position. The patient was monitored throughout. Once the patient was sedated, a bite block was placed. The endoscope was inserted in the esophagus, stomach, and duodenum. The esophagus and its upper, middle, and thirds were normal. However, on the GE junction, there were a lot of erosive changes consistent with some grade B esophagitis. There was a 2 centimeter hiatal hernia. Z-line appeared to be at 42 centimeters. The diaphragmatic hiatus was at 44 centimeters. The stomach exam did not have any debris or fluid within it. NG tube was removed. There were some NG tube trauma fields in various areas of the stomach. Random gastric biopsies were obtained. The stomach was significantly J-shaped. The duodenum was examined well into or through the fourth portion of the duodenum. I did not see any obstructive process. I did not see any mass lesions. There was some tortuosity to the postbulbar descending part of the duodenum, but again, I did not find any stricturing or obstruction. There was no significant dilation of the duodenum neither. Scope was then withdrawn. The patient was transferred to recovery room in stable condition. Pathology from his upper endoscopy at [facility] on July 11, 2018 demonstrated mild gastritis was H. pylori negative. hemoglobin at discharge on that admission was 11. The patient is a complex medical history including advanced COPD with hyperinflation but a decreased FEV1, a previous nonST segment myocardial infarction still with apparently good cardiac function. He has a history of chronic renal insufficiency. The patient states she has a previous history of Crohn's disease for which she underwent an exploratory laparotomy with resection he says of 2 feet of distal bowel. He is uncertain where the surgical procedure was performed. He recalls it happened in [place]. Patient underwent upper endoscopy Dr. David Price on December 2014 when he was found to have maroon stools. Upper endoscopy at that time was unremarkable. prior to that he was scheduled for colonoscopy in 2012. He had undergone CT scan of the abdomen and pelvis which demonstrated: IMPRESSION: 1. Small wall inflammation seen with reactivation of Crohn's disease. 2. Anastomotic stenosis of the distal ileum with terminal ileitis. 3. No complete small bowel obstruction, however a partial or functional obstruction at the site of the anastomotic stenosis suspected. 4. Likely hepatic hemangiomata. 5. Reactive changes of the colon rather than colitis suspected. 6. Extensive arterial sclerosis. 7. Remote granulomatous disease. He then underwent small bowel follow-through on March 24, 2013 which demonstrated FINDINGS: The small bowel transit is normal. There is evidence of thickening of the terminal ileum with separation of bowel loops. There is deformity of the medial portion of the cecum. This is intimal with the active Crohn's disease with inflammatory process. IMPRESSION: Findings suggestive of active Crohn's disease involving the terminal ileum and surrounding cecum. Past Medical History Past Medical History (Chronic Problems): Chronic Problems (Last Reviewed 10/26/18 @ 09:22 by Dakota Gonzales MD) Acute kidney injury superimposed on chronic kidney disease (Chronic) Stage 4 very severe COPD by GOLD classification (Chronic) Non-rheumatic tricuspid valve insufficiency (Chronic) mild 1+ regurg per echo 01/21/2015 done @ [facility] Atherosclerosis of coronary artery of [place]' heart without angina pectoris (Chronic) 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 Nicotine abuse (Chronic) Hypertension (Chronic) COLD (chronic obstructive lung disease) (Chronic) CKD (chronic kidney disease) stage 4, GFR 15-29 ml/min (Chronic) Following with Dr. Chapman Medical History: Medical History (Last Reviewed 10/26/18 @ 09:22 by Dakota Gonzales MD) Non-rheumatic tricuspid valve insufficiency (Chronic) I36.1 mild 1+ regurg per echo 01/21/2015 done @ [facility] Atherosclerosis of coronary artery of [place]' heart without angina pectoris (Chronic) I25.10 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 Nicotine abuse (Chronic) Z72.0 Hypertension (Chronic) I10 COLD (chronic obstructive lung disease) (Chronic) J44.9 CKD (chronic kidney disease) stage 4, GFR 15-29 ml/min (Chronic) N18.[address] Chapman Arthritis M19.90 Crohns disease K50.90 Non-ST elevation (NSTEMI) myocardial infarction Onset Date: 01/09/15 I21.4 Small bowel obstruction K56.609 Allergies Penicillins Adverse Reaction (Verified 10/25/18 20:16) Other Home Medications: Ambulatory Orders Medication Instructions Recorded Loperamide [Imodium] 2 mg PO DAILY 01/17/15 Surgical History: Surgical History (Last Reviewed 09/28/18 @ 09:22 by May Dhillon) History of left heart catheterization Onset Date: 01/09/15 Z98.890 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 Surgical History: - - left carpal tunnel, L ureteral stent for obstructed stone and removal 07/2013, partial bowel resection Lives: With Family Smoking Status: Former smoker - He reports quitting smoking about a month ago. - *Family History Paternal Family History: Family History (Last Reviewed 10/26/18 @ 09:24 by Dakota Gonzales MD) Father neg FH of ASCVD History Items: - - Denies family history of coronary artery disease Sibling Family History: Family History (Last Reviewed 10/26/18 @ 09:24 by Dakota Gonzales MD) Father neg FH of ASCVD History Items: Cancer - colon, COPD Review of Systems Constitutional: Reports: Malaise, Weight Change, Fatigue HEENT: Denies: Head Aches, Sinus Congestion, Sinus Drainage Cardiovascular: Denies: Chest Pain, Palpitations Respiratory: Reports: Shortness of Breath, Shortness of breath upon exertion. Denies: Cough, Shortness of breath at rest, Sputum production Gastrointestinal: Reports: Nausea, Vomiting. Denies: Abdominal Pain Genitourinary: Denies: Dysuria Musculoskeletal: Denies: Joint Pain, Joint Tenderness Skin: Denies: Rash, Wounds Neurological: Denies: Numbness, Tingling, Focal weakness Psychiatric: Denies: Anxiety, Depression, Homicidal Ideations, Suicidal Ideations Hematologic/ Lymphatic: Denies: Easy Bruising, Easy Bleeding Patient Problems: Active and Suspected Problems (Last Reviewed 10/26/18 @ 09:22 by Dakota Gonzales MD) Hydronephrosis (Acute) - Physical Exam General: Oriented x3, - - patient is somewhat somnolent, answers questions somewhat begrudgingly HEENT: Atraumatic, PERRLA, EOMI Neck: Supple, Negative Carotid Bruits Lungs: - - very distant breath sounds, few wheezes and coarse sounds grossly diminished Cardiovascular: Regular rate, Regular Rhythm, - - no obvious murmurs noted but distant heart tones Abdomen: Bowel Sounds Present, Soft, Non Tender - well-healed midline incision consistent with his previous surgical procedure Vital Signs Temp Pulse Resp BP Pulse Ox 98.6 F 103 H 18 151/82 H 96 10/27/18 08:12 10/27/18 11:00 10/27/18 08:12 10/27/18 08:12 10/27/18 08:12 Oxygen Flow Rate (L/min) 3 Oxygen Delivery Method Nasal Cannula Weight: 41.2 kg Body Mass Index (BMI) 15.0 Intake and Output for Last 24 Hours Intake Total 1777 / 1777 1103 / 1103 Output Total 75 / 75 Balance 1777 / 1777 1028 / 1028 Microbiology Past 72 Hours 10/26/18 04:10 Respiratory Panel (PCR) - Final Mucosa - Nasopharyngeal Laboratory Tests Past 24 Hrs WBC 6.9 RBC 4.32 L WBC RBC Hgb 12.2 L Hct 39.0 L MCV MCH MCHC RDW WBC RBC Hgb Hct MCV MCH MCHC RDW RDW Differential Plt Count MPV Immature Gran % (Auto) Neut % (Auto) Lymph % (Auto) Assessment/Plan All Active Problems (Last Reviewed 10/26/18 @ 09:22 by Dakota Gonzales MD) Hydronephrosis (Acute) COPD with acute exacerbation (Acute) gastric and duodenal distention-recently worked up in [place] felt to not truly be gastric outlet obstruction/SMA syndrome, history of Crohn's disease with resection, nausea, vomiting, coffee grounds and emesis Agree with maintaining the patient on a proton pump inhibitor currently. CT scan didn't demonstrate significant gastric distention was felt to be duodenal distention. Due to lack of contrast in patient's lack of body fat difficult to assess additional palpable findings. Patient has a known history of Crohn's disease. He recalls he underwent surgery likely in [place] with a small bowel resection he states [address] scan and small bowel series in 2012 were felt to be consistent with terminal Crohn's disease. There is also question on the CT scan of an anastomotic stricture We'll attempt a repeat CT scan with oral contrast to evaluate for progression through these areas.. Most likely patient will require repeat upper endoscopy to assess for Justine-Hamlin tear versus peptic ulcer disease. Recent endoscopy in [place] demonstrated mild gastritis was H. pylori negative. Patient uncertain when his last colonoscopy was performed. No obtainable records of colonoscopies locally. Patient with significant medical comorbidities including severe COPD, coronary disease, renal failure. 10/27/181812 <Electronically signed by Kay Kamara MD> Date Kay Kamara MD Cosigner Signature (if applicable): Date CC: Lindsey Velasquez MD; Kay Kamara MD; Jalen Rodríguez MD Signed HH, HEMOGLOBIN AND Collected: 10/27/2018 Status: F Source: [place] HEMATOCRIT 2:42 PM [facility] REPOSITORY TYPE CODE TESTS RESULT OUT OF RANGE REFERENCE UNITS LAB L100.1300 13.0-16.5 g/dl Low HGB 10.6 LAB L100.1400 40-54 % Low HCT 34.2 Performed By: #### L100.0600 #### [facility] [address] [place], [address] 12 LEAD ELECTROCARDIOGRAM Observed: 10/27/2018 Status: F Source: [place] 2:00 PM [facility] REPOSITORY [facility] Cardiovascular Services [address] [place] [address] 12 Lead EKG 10/25/182014 MR#: [id number] Acct: [id number] Name: MARK SERRANO Rep #: [id number] : 1950 68 From: Yemi Leal MD Attending Dr: Yelena Valdez Status: ADM IN Ordering Dr: Janet Cotton MD Date: 10/25/18 Location: [facility] Sex: M C Admitted: 10/26/18 Test Reason : Blood Pressure : / mmHG Vent. Rate : 139 BPM Atrial Rate : 139 BPM P-R Int : 148 ms QRS Dur : 076 ms QT Int : 276 ms P-R-T Axes : 084 -76 066 degrees QTc Int : 419 ms Sinus tachycardia with Premature atrial complexes Right atrial enlargement Left axis deviation Low voltage QRS (LIMB LEADS) Abnormal ECG Confirmed by STEVE ABRAHAM, YEMI ([id number]), video effects editor CRISTO SANTOS ([id number]) on 10/27/2018 1:59:58 PM Referred By: ACACIA Confirmed By:YEMI LEAL MD 10/27/18 1400 Date Yemi Leal MD CC: Janet Cotton MD; Yelena Valdez; Jalen Rodríguez MD Signed URINALYSIS, COMPLETE Collected: 10/27/2018 Status: F Source: [place] 1:15 PM [facility] REPOSITORY Order Comment: How was Urine Obtained? AUTOMOTIVE PAINT TECHNICIAN TO SPECIFY TYPE CODE TESTS RESULT OUT OF RANGE REFERENCE UNITS LAB L400.3000 Yellow COLOR Normal Yellow LAB L400.3050 Clear Normal CLARITY Clear LAB L400.3200 Normal mg/dl Normal GLUCOSE, UR Normal LAB L400.3300 Negative mg/dL Normal BILIRUBIN URINE Negative LAB L400.3400 Negative mg/dl High 5 KETONE UR LAB L400.3465 1.002-1.030 Normal SP.GR. DIPSTX 1.025 LAB L400.3550 5.0 - 8.0 pH UR Normal 5.0 LAB L400.3600 Negative mg/dl High PROT 30 DIPSTX LAB L400.3700 Normal mg/dl Normal UROBILI Normal LAB L400.3750 Negative Normal NITRITE UR Negative LAB L400.3780 Negative /ul High 10 OCCULT BLOOD-UR LAB L400.3800 Negative /ul LEUK Normal ESTERASE Negative LAB L400.4050 0-5 /hpf WBC Normal 0-5 SEEN LAB L400.4100 0-5 /hpf Normal RBC-UA 0-5 SEEN LAB L400.4150 0-5 /hpf SQUAM Normal EPI 0-5 SEEN LAB L400.4300 None Seen /hpf Normal BACTERIA RARE LAB L400.4350 <or=2+ /hpf Normal MUCUS, URINE RARE Performed By: #### L400.0001 #### [facility] [address] [place], [address] CREATININE, URINE Collected: 10/27/2018 Status: F Source: [place] 1:15 PM [facility] REPOSITORY TYPE CODE TESTS RESULT OUT OF RANGE REFERENCE UNITS LAB L502.0300 NO RANGE EST. mg/dL Normal URINE 209.00 CREAT Performed By: #### L502.0300 #### [facility] [address], [address] URINE SODIUM Collected: 10/27/2018 Status: F Source: [place] 1:15 PM [facility] REPOSITORY TYPE CODE TESTS RESULT OUT OF RANGE REFERENCE UNITS LAB L501.5500 Not Establ. mmol/L Normal UR NA 28 Performed By: #### L501.5500 #### [facility] [address] [place], [address] CONSULTATION Observed: 10/27/2018 Status: F Source: [place] 11:08 AM [facility] REPOSITORY [facility] Medical Records Department [address] [facility] [place] [address] Consultation 10/27/18 1053 MR#: [id number] Acct: [id number] Name: MARK SERRANO Rep #: [id number] : 1950 68 From: Lindsey Velasquez MD PCP: Jalen Rodríguez MD, Chi Status: ADM IN Location: [place] [address] Problem List (1) Acute kidney injury superimposed on chronic kidney disease Status: Chronic (2) Hydronephrosis Status: Acute Consultation - Renal PCP/ Referring MD: Requesting physician: [] Primary care physician: Jalen Rodríguez MD - History of Present Illness History of Present Illness: The patient is a 68 year old M past medical history of Crohn's disease COPD, non-ST MT, hypertension, chronic kidney disease stage III/IV, history of GI bleed and chronic respiratory failure. Patient presented with progressive shortness of breath with productive cough for a week. Patient was admitted initially with a 30 failure due to COPD exacerbation. Patient then had coffee-ground emesis. CT abdomen/pelvis showed distended duodenum/stomach and possible SMA syndrome . Also the CAT scan showed right-sided hydronephrosis which is a new without any obstructive stone. Renal team was consulted for acute kidney injury and chronic kidney disease. Creatinine increased to 2.1. Baseline creatinine seems around 1.8-2.0. Patient denies seen a electrical electronics technician in outpatient basis. Currently has NG tube. He is very slow to respond. No recent IV contrast exposure. No recent history of UTI. Review of systems: Unable to obtain review of systems because patient is not answering my questions appropriately - Allergies Allergies: Allergies Penicillins Adverse Reaction (Verified 10/25/18 20:16) Other - Current Medications Current Medications: Current Medications Acetaminophen (Tylenol) 650 mg PO Q6H PRN PRN PRN Reason: Mild Pain (scale 0-3)/T>100.7 Albuterol Sulfate (Ventolin Aerosols) 2.5 mg INHALATION Q2H PRN PRN PRN Reason: SHORTNESS OF BREATH Albuterol/Ipratropium (Duoneb) 3 ml INHALATION Q4H.RT [facility] Last Admin: 10/27/18 06:48 Dose: Not Given Atorvastatin Calcium (Lipitor) 20 mg PO QHS [facility] Last Admin: 10/26/18 22:35 Dose: 20 mg Clonidine (Catapres) 0.1 mg PO Q6H PRN PRN Reason: sbp > 160 Clonidine HCl (Catapres-Tts1) 0.1 mg TRANSDERM. Q7D [facility] Last Admin: 10/27/18 10:11 Dose: 0.1 mg Guaifenesin (Mucinex) 1,200 mg PO BID [facility] Last Admin: 10/27/18 08:05 Dose: Not Given Hydralazine HCl (Apresoline Iv) 10 mg IV Q6H PRN PRN PRN Reason: Systolic BP >160 Last Admin: 10/27/18 06:57 Dose: 10 mg Azithromycin 500 mg/ Dextrose 255 mls @ 250 mls/hr IV Q24 [facility] Stop: 10/28/18 11:02 Last Admin: 10/27/18 10:11 Dose: 250 mls/hr Sodium Chloride () 250 mls @ 15 mls/hr IV .[id number] PRN PRN Reason: SALINE FLUSH Sodium Chloride () 1,000 mls @ 75 mls/hr IV .[id number] [facility] Last Admin: 10/27/18 10:11 Dose: 75 mls/hr Pantoprazole Sodium 40 mg/ (Sodium Chloride) 110 mls @ 330 mls/hr IV Q12 [facility] Last Admin: 10/27/18 07:31 Dose: 330 mls/hr Labetalol HCl (Trandate) 10 mg IV Q4H PRN PRN PRN Reason: Systolic BP >160 Lisinopril (Zestril) 5 mg PO DAILY [facility] Last Admin: 10/27/18 08:05 Dose: Not Given Loperamide HCl (Imodium) 2 mg PO DAILY [facility] Last Admin: 10/27/18 08:05 Dose: Not Given Lorazepam (Ativan) 1 mg IV Q8 PRN PRN Reason: ANXIETY Last Admin: 10/27/18 00:23 Dose: 1 mg Magnesium Hydroxide (Milk Of Magnesia) 30 ml PO DAILY PRN PRN Reason: Constipation Mesalamine (Lialda) 2.4 gm PO DAILYCM [facility] Last Admin: 10/27/18 08:05 Dose: Not Given Methylprednisolone (Solu-Medrol) 40 mg IV Q8 [facility] Last Admin: 10/27/18 05:09 Dose: 40 mg Nutritional Formula (Lactose Free) (Ensure Enlive) 120 ml PO 4X/DAY [facility] Last Admin: 10/27/18 08:05 Dose: Not Given Phenol/Menthol (Chloraseptic (Bkc)) 5 spray MM Q2H PRN PRN PRN Reason: For NG insertion Prochlorperazine Edisylate (Compazine Iv) 5 mg IV Q4H PRN PRN PRN Reason: NAUSEA/VOMITING Promethazine HCl (Phenergan) 6.25 mg IV Q4H PRN PRN PRN Reason: NAUSEA/VOMITING Last Admin: 10/27/18 05:09 Dose: 6.25 mg Sodium Chloride () 5 - 15 ml IV UD PRN PRN Reason: SALINE FLUSH Last Admin: 10/27/18 05:09 Dose: 10 ml - Past Medical History Past Medical History (Chronic Problems): Chronic Problems (Last Reviewed 10/26/18 @ 09:22 by Dakota Gonzales MD) Acute kidney injury superimposed on chronic kidney disease (Chronic) Stage 4 very severe COPD by GOLD classification (Chronic) Non-rheumatic tricuspid valve insufficiency (Chronic) mild 1+ regurg per echo 01/21/2015 done @ [facility] Atherosclerosis of coronary artery of [place] de[place]' heart without angina pectoris (Chronic) 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 Nicotine abuse (Chronic) Hypertension (Chronic) COLD (chronic obstructive lung disease) (Chronic) CKD (chronic kidney disease) stage 4, GFR 15-29 ml/min (Chronic) Following with Dr. Chapman - Past Surgical History Surgical History: - - left carpal tunnel, L ureteral stent for obstructed stone and removal 07/2013, partial bowel resection - Social History Smoking Status: Former smoker - He reports quitting smoking about a month ago. - Family History Paternal Family History: Family History (Last Reviewed 10/26/18 @ 09:24 by Dakota Gonzales MD) Father neg FH of ASCVD History Items: - - Denies family history of coronary artery disease Sibling Family History: Family History (Last Reviewed 10/26/18 @ 09:24 by Dakota Gonzales MD) Father neg FH of ASCVD History Items: Cancer - colon, COPD Patient Problems: Active and Suspected Problems (Last Reviewed 10/26/18 @ 09:22 by Dakota Gonzales MD) Hydronephrosis (Acute) - Physical Exam General: Confused, Lethargic HEENT: Atraumatic Oral: Moist Mucosa Neck: Supple, No JVD Lungs: Clear to auscultation, Diminished Cardiovascular: Regular rate, Regular Rhythm Abdomen: Bowel Sounds Present, Soft, Non Tender Extremities: No clubbing, No cyanosis, No edema Skin: No rashes Lymphatic: No Cervical, Supraclavicular, or Inguinal Adenopathy Vital Signs Temp Pulse Resp BP Pulse Ox 98.6 F 112 H 18 151/82 H 96 10/27/18 08:12 10/27/18 09:04 10/27/18 08:12 10/27/18 08:12 10/27/18 08:12 Oxygen Flow Rate (L/min) 3 Oxygen Delivery Method Nasal Cannula Weight: 41.2 kg Body Mass Index (BMI) 15.0 Intake and Output for Last 24 Hours Intake Total 1777 / 1777 1103 / 1103 Output Total 75 / 75 Balance 1777 / 1777 1028 / 1028 Microbiology Past 72 Hours 10/26/18 04:10 Respiratory Panel (PCR) - Final Mucosa - Nasopharyngeal Laboratory Tests Past 24 Hrs WBC 6.9 RBC 4.32 L WBC RBC Hgb 12.2 L Hct 39.0 L MCV MCH MCHC RDW WBC RBC Hgb Hct MCV MCH MCHC RDW RDW Differential Plt Count MPV Immature Gran % (Auto) Neut % (Auto) Lymph % (Auto) Assessment/Plan All Active Problems (Last Reviewed 10/26/18 @ 09:22 by Dakota Gonzales MD) Hydronephrosis (Acute) COPD with acute exacerbation (Acute) 1-acute kidney injury on chronic kidney disease. Baseline creatinine seems around 1.8-2 mg a deciliter. No recent UA available Acute kidney injury could be from blood pressure fluctuating in addition to poor oral intake. Renal ultrasound shows new onset right-sided hydro-nephrosis which also might be contributing to worsening kidney function Creatinine is 2.26 mg a deciliter I agree with IV fluid normal saline 75 cc/h We will do bladder scan. If bladder volume more than 300, will order to place a Syed catheter. Will do UA. No indication for hemodialysis. Okay to continue lisinopril. Avoid nephrotoxic's. 2-new onset right-sided hydronephrosis. CAT scan did not show any obstructive stone. Will do bladder scan and Place Syed catheter the patient retaining. We might need to repeat CAT scan if the kidney function continues to worsen. 3-hypertension: Blood pressure is well controlled now. Okay to clonidine, lisinopril 4-COPD exacerbation. On methylprednisone and respiratory treatment as per the primary servie 5-upper GI bleed with SMA syndrome. Will defer management to the primary service Thank you for the consult 10/27/18 1108 <Electronically signed by Lindsey Velasquez MD> Date Lindsey Velasquez MD Cosigner Signature (if applicable): Date CC: Lindsey Velasquez MD; Kay Kamara MD; Jalen Rodríguez MD Signed HH, HEMOGLOBIN AND Collected: 10/27/2018 Status: F Source: [place] HEMATOCRIT 8:55 AM [facility] REPOSITORY TYPE CODE TESTS RESULT OUT OF RANGE REFERENCE UNITS LAB L100.1300 13.0-16.5 g/dl Low HGB 12.2 LAB L100.1400 40-54 % Low HCT 39.0 Performed By: #### L100.0600 #### [facility] [address] [place], [address] TYPE AND SCREEN Collected: 10/27/2018 Status: F Source: [place] 8:55 AM [facility] REPOSITORY Order Comment: Reason for Type AND Screen/Red Cells: HEMORRHAGE, GI BLEED TYPE CODE TESTS RESULT OUT OF RANGE REFERENCE UNITS LAB B10.0800 A Normal BLOOD TYPE GEL POSITIVE LAB B100.4000 Normal Antibody NEGATIVE Screen Performed By: #### B101.7450 #### [facility] [address] [place], [address] ABDOMEN/PEL W ORAL CONT Observed: 10/27/2018 Status: F Source: [place] ONLY 8:07 AM [facility] REPOSITORY [facility] Imaging Services [address] [place] [address] Abdomen/Pel W ORAL Cont Only MR#: [id number] Acct: [id number] Name: MARK SERRANO Rep #: [id number] : 1950 M 68 From: Ned Denny MD PCP: Marcos ABRAHAM,Jalen [facility] Status: ADM IN Study: Abdomen/Pel W ORAL Cont Only Date of Exam: 10/27/18 Exam# [id number] Ordering Dr: Es Valdez DO STUDY: CT ABDOMEN AND PELVIS WITH CONTRAST REASON FOR EXAM: Male, 68 years old. History of bowel obstruction. RADIATION DOSAGE (If Supplied By Facility): CTDIvol = ( 6.04 ) mGy, DLP = ( 285.40 ) mGycm TECHNIQUE: Transaxial images were obtained from the dome of the diaphragm to the symphysis pubis with oral contrast. 15 ml of Gastrografin contrast was administered. Sagittal and coronal images were reconstructed. Individualized dose optimization techniques were used for this CT. COMPARISON: Comparison is made with prior study dated October 27, 2018 at 5:55 AM. FINDINGS: A nasogastric tube is seen. The tip is in the distal portion of the stomach. Stable increased markings in the posterior medial segment of the right lower lobe. The visualized portions of the heart are within normal limits. Normal liver. The gallbladder is contracted. There are multiple benign calcified granulomata of the spleen. Normal pancreas. Normal bilateral adrenal glands. Stable small nonobstructive right intrarenal calculi. The largest measures 5 mm. Stable small left intrarenal calculi. There is gastric distention with evidence of retained food products and air. Normal small intestine. Normal colon. The appendix is visualized and appears normal. There is diffuse atherosclerotic calcification of the abdominal aorta, without a demonstrated aneurysm. Normal inferior vena cava. Normal retroperitoneum. Distended urinary bladder. Normal abdominal wall. Normal osseous structures. CT/Abdomen/Pel W ORAL Cont Only IMPRESSION: The tip of the nasogastric tube is in the distal portion of the stomach. There is residual distention of the stomach with retained food particles. There is no evidence of a small bowel obstruction at this time. Small bilateral renal calculi. Electronically Signed: Ned Denny MD at 12:43 EST Tel [phone], Service support , CC: Yelena Valdez; Jalen Rodríguez MD World Travel Counselor: Signed CHEST 1 VIEW Observed: 10/27/2018 Status: F Source: [place] (PORTABLE) 7:57 AM [facility] REPOSITORY [facility] Imaging Services [address] [place] [address] Chest 1 View (Portable) MR#: [id number] Acct: [id number] Name: MARK SERRANO Rep #: [id number] : 1950 M 68 From: Shanna Aguillon MD PCP: Marcos ABRAHAM,Jalen Mary Status: ADM IN Study: Chest 1 View (Portable) Date of Exam: 10/27/18 Exam# [id number] Ordering Dr: Es Valdez DO STUDY: X-RAY CHEST REASON FOR EXAM: Male, 68 years old. SOB, dyspnea. TECHNIQUE: AP upright portable. COMPARISON: 10/25/2018. FINDINGS: Nasogastric tube is coiled in the distal esophagus. The lungs are clear and expanded. There is no demonstrated pleural abnormality. Normal size heart. Normal mediastinum and alo. Normal visualized pulmonary arteries. Normal visualized aortic arch and descending thoracic aorta. Normal visualized thoracic spine. Normal visualized ribs, clavicles, and shoulders. There is no demonstrated abnormality of the visualized soft tissue structures of the upper abdomen. RAD/Chest 1 View (Portable) IMPRESSION: Nasogastric tube is coiled in the distal esophagus. This should be retracted and repositioned. No acute cardiopulmonary disease. Electronically Signed: Shanna Aguillon MD at 0:01 EST Tel , Service support , CC: Yelena Valdez; Jalen Rodríguez MD World Travel Counselor: Signed ABDOMEN SINGLE VIEW Observed: 10/27/2018 Status: F Source: [place] 7:57 AM [facility] REPOSITORY [facility] Imaging Services [address] [place] [address] Abdomen Single View MR#: [id number] Acct: [id number] Name: MARK SERRANO Rep #: [id number] : 1950 M 68 From: Jason Rocha PCP: Marcos ABRAHAM,Jalen Mary Status: ADM IN Study: Abdomen Single View Date of Exam: 10/27/18 Exam# [id number] Ordering Dr: Es Valdez DO STUDY: X-RAY - ABDOMEN/PELVIS REASON FOR EXAM: Male, 68 years old. NG tube placement TECHNIQUE: Frontal view COMPARISON: None. FINDINGS: The NG tube is in the stomach. There is an unremarkable bowel gas pattern. There is no demonstrated free abdominal air. The visualized liver, spleen and kidneys are grossly normal in size and morphology. Normal soft tissue structures. Normal visualized osseous structures. RAD/Abdomen Single View IMPRESSION: The NG tube is in the stomach. Electronically Signed: Jason Rohca MD at 3:33 EST , Service support , CC: Yelena Valdez; Jalen Rodríguez MD World Travel Counselor: Signed ABDOMEN SINGLE VIEW Observed: 10/27/2018 Status: F Source: [place] (PORTABLE) 7:52 AM [facility] REPOSITORY [facility] Imaging Services [address] [place] [address] Abdomen Single View (Portable) MR#: [id number] Acct: [id number] Name: MARK SERRANO Rep #: [id number] : 1950 M 68 From: Jason Rocha PCP: Jalen Rodríguez MD, Chi Status: ADM IN Study: Abdomen Single View (Portable) Date of Exam: 10/27/18 Exam# [id number] Ordering Dr: Es Valdez DO STUDY: X-RAY - ABDOMEN/PELVIS REASON FOR EXAM: Male, 68 years old. NG tube placement TECHNIQUE: Frontal view COMPARISON: None. FINDINGS: Lungs are expanded. There are NO infiltrates. There is an unremarkable bowel gas pattern. There is no demonstrated free abdominal air. The NG tube is coiled in the esophagus and should be repositioned. Normal soft tissue structures. Normal visualized osseous structures. RAD/Abdomen Single View (Portable) IMPRESSION: The NG tube is coiled in the esophagus and should be repositioned. Electronically Signed: Jason Rocha MD at 3:19 EST , Service support , CC: Yelena Valdez; Jalen Rodríguez MD World Travel Counselor: Signed CBC W/DIFF, AUTOMATED Collected: 10/27/2018 Status: F Source: [place] 6:50 AM [facility] REPOSITORY TYPE CODE TESTS RESULT OUT OF RANGE REFERENCE UNITS LAB L100.1000 4.4-11.0 K/mm3 Normal WBC 6.9 LAB L100.1200 4.6-6.2 M/mm3 Low RBC 4.32 LAB L100.1300 13.0-16.5 g/dl Low HGB 12.6 LAB L100.1400 40-54 % Normal HCT 40.0 LAB L100.1500 80-94 fL Normal MCV 92.6 LAB L100.1600 27.0-32.0 pg Normal MCH 29.2 LAB L100.1700 32-36 g/gl Low MCHC 31.5 LAB L100.1810 11.6-14.6 % Normal RDW CV 12.8 LAB L100.1820 35.1-43.9 fl Normal RDW SD 42.2 LAB L100.1900 150-450 K/mm3 Normal PLT 177 LAB L100.2000 6.2-12.0 fl Normal MPV 10.3 LAB L100.2100 47-70 % High NEUT% 90.3 LAB L100.2200 19-41 % Low LY% 4.5 LAB L100.2300 0-10 % Normal MONO% 5.0 LAB L100.2400 0-5 % Normal EO% 0.0 LAB L100.2500 0-1 % Normal BASO% 0.1 LAB L100.2550 0.0-0.9 % Normal IM GRAN % 0.100 Result Comment: IG% - Immature Granulocytes (promyelocytes, myelocytes and metamyelocytes) > 1% indicates that a LEFT SHIFT is Present. LAB L100.2620 2.0-7.7 X10 3/uL Normal Absolute Neut 6.2 LAB L100.2720 0.83-4.51 X10 3/ul Low Absolute Lymph 0.31 LAB L100.4500 Normal SMEAR COMMENT SCANNED Result Comment: RARE BANDS SEEN Performed By: #### L100.0100 #### [facility] [address] [place], [place], [address] BASIC METABOLIC Collected: 10/27/2018 Status: F Source: [place] PROFILE (BMP) 6:50 AM [facility] REPOSITORY TYPE CODE TESTS RESULT OUT OF RANGE REFERENCE UNITS LAB L501.0100 74-106 mg/dL High GLU 164 Result Comment: Fasting Glucose result greater than or equal to 126 mg/dL suggests DIABETES MELLITUS per A.D.A. criteria. Please note revised GLUCOSE reference range effective 2017. LAB L501.1000 7-18 mg/dL High BUN 44 LAB L501.1100 0.70-1.30 mg/dL High CREAT,SERUM 2.16 Result Comment: The validity of the calculated GFR AND GFRAA in patients over 70 years has not been determined. Clinical correlation is essential. LAB L501.1110 >60 mL/min Low EST GFR 32 Result Comment: Non- GFR Calc LAB L501.1115 >60 mL/min Low EST GFR - AA 39 Result Comment: GFR Calc LAB L501.1255 ml/min Normal Estimated CRCL 18.54 LAB L501.1300 10-20 RATIO High BUN/CRE 20.4 LAB L501.2200 8.5-10 mg/dL Normal .1 CA 9.5 LAB L501.5300 136-14 mmol/L Normal 5 NA 142 LAB L501.5600 3.5-5. mmol/L Normal 1 K 4.1 LAB L501.5900 98-107 mmol/L Normal CL 98 LAB L501.6100 21.0-3 mmol/L High 2.0 CO2 36.0 LAB L501.6200 5-15 Normal GAP 8 Performed By: #### L500.2500 #### [facility] [address] [place], [place], [address] LIVER PROFILE Collected: 10/27/2018 Status: F Source: [place] 6:50 AM [facility] REPOSITORY TYPE CODE TESTS RESULT OUT OF RANGE REFERENCE UNITS LAB L501.1500 6.4-8.2 g/dL Normal T PROT 7.1 LAB L501.1800 3.2-5.0 g/dL Normal ALB 3.4 LAB L501.1950 2.2-4.2 g/dL Normal GLOB 3.7 LAB L501.4100 15-37 U/L Low AST 10 LAB L501.4305 45-117 U/L Normal ALK P 85 LAB L501.4405 16-61 U/L Normal ALT 22 LAB L501.4600 0.20-1.00 mg/dL Normal T BILI 0.40 LAB L501.4700 0.00-0.30 mg/dL Normal D BILI 0.14 Performed By: #### L500.3400, L501.2300, L501.5200 #### [facility] [address] [place], [address] PHOSPHORUS Collected: 10/27/2018 Status: F Source: [place] 6:50 AM [facility] REPOSITORY TYPE CODE TESTS RESULT OUT OF RANGE REFERENCE UNITS LAB L501.2300 2.5-4.9 mg/dL Normal PHOS 4.1 Performed By: #### L500.3400, L501.2300, L501.5200 #### [facility] [address] [place], [address] MAGNESIUM Collected: 10/27/2018 Status: F Source: [place] 6:50 AM [facility] REPOSITORY TYPE CODE TESTS RESULT OUT OF RANGE REFERENCE UNITS LAB L501.5200 1.6-2.6 mg/dL Normal MG 1.8 Performed By: #### L500.3400, L501.2300, L501.5200 #### [facility] [address] [place], [address] HEMOGLOBIN A1C Collected: 10/27/2018 Status: F Source: [place] 6:50 AM [facility] REPOSITORY TYPE CODE TESTS RESULT OUT OF RANGE REFERENCE UNITS LAB L501.9985 4.2-6.3 % Normal HGB A1C 6.0 Performed By: #### L501.9985 #### [facility] [address] [place], [address] ABDOMEN/PELVIS WITHOUT Observed: 10/27/2018 Status: F Source: [place] CONT 5:38 AM [facility] REPOSITORY [facility] [place] [address] Abdomen/Pelvis without Cont MR#: [id number] Acct: [id number] Name: MARK SERRANO Rep #: [id number] : 1950 M 68 From: Chuck Lyons MD PCP: Marcos ABRAHAM,Jalen [facility] Status: ADM IN Study: Abdomen/Pelvis without Cont Date of Exam: 10/27/18 Exam# [id number] Ordering Dr: Dakota Gonzales MD STUDY: CT ABDOMEN AND PELVIS WITHOUT CONTRAST REASON FOR EXAM: Male, 68 years old. Abdominal pain RADIATION DOSAGE (If Supplied By Facility): CTDIvol = ( 6.04 ) mGy, DLP = ( 276.33 ) mGycm TECHNIQUE: Transaxial images were obtained from the dome of the diaphragm to the symphysis pubis without oral contrast, and without intravenous contrast. Sagittal and coronal images were reconstructed. Individualized dose optimization techniques were used for this CT. COMPARISON: None. FINDINGS: There are platelike atelectatic changes in the right lung base. The liver is normal. No dilated intrahepatic biliary radicles. The gallbladder is normal with no calcifications within it. There is no pericholecystic fluid collection or streakiness The spleen is normal. The pancreas is normal. Both adrenals are normal. There is a 5 mm right calyceal calculus and a right sided hydronephrosis. There is a focal millimeter left-sided calyceal calculus but no left-sided hydronephrosis The stomach and duodenum are fluid filled and markedly distended. The point of obstruction may be anterior to the aorta. An SMA syndrome is suspected but difficult to ascertain because of lack of contrast.. The abdominal wall is intact with no hernias. There is no ascites or any free intraperitoneal air. No indication of epiploic appendagitis The vascular structures in the retroperitoneum are normal. There is no retrocrural, retroperitoneal or mesenteric adenopathy. The bones and joints are normal. The urinary bladder is normal.--The prostate is slightly enlarged.. There is no inguinal or pelvic adenopathy. There is no inguinal hernia. . CT/Abdomen/Pelvis without Cont IMPRESSION: Fluid filled markedly distended stomach and duodenum with the point of obstruction somewhere anterior to the aorta. 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 Bilateral calyceal calculi. A right-sided hydronephrosis without any demonstrable obstructing calculus right ureter Plate atelectatic changes in the right lung base Electronically Signed: Chuck Lyons MD at 6:29 EST Tel , Service support , CC: Dakota Gonzales MD; Jalen Rodríguez MD World Travel Counselor: Signed Observed: 10/26/2018 Status: F Source: [place] CULTURE, SPUT[place] 3:25 PM [facility] REPOSITORY Order Date: 10/26/18 [facility] 1403 TO COLLECT SAMPLE Comfort Lombardo. Gram Stain Acceptable Specimen? Yes (<25 Epithelial cells per/lpf) Gram Stain 3+ White Blood Cells Rare Gram positive cocci in clusters Resp. Culture #2 No Haemophilus, Streptococcus pneumoniae, beta-hemolytic Streptococcus or Staphylococcus aureus isolated. ORGANISM 1: Presumptive C albicans Amount Growth 1+ ORGANISM 2: Mixed Connie Amount Growth 2+ Performed By: #### M100.0800 #### [facility] [address] [facility] [place], [address] HISTORY AND PHYSICAL Observed: 10/26/2018 Status: F Source: [place] EXAM 9:27 AM [facility] REPOSITORY [facility] Medical Records Department [address] [place] [address] History and Physical 10/25/18 2308 MR#: [id number] Acct: [id number] Name: MARK SERRANO Rep #: [id number] : 1950 68 From: Dakota Gonzales MD PCP: Jalen Rodríguez MD, Chi Status: ADM IN Y Location: [facility] [id number] Problem List (1) Stage 4 very severe COPD by GOLD classification Status: Chronic (2) COPD with acute exacerbation Status: Acute (3) CKD (chronic kidney disease) stage 4, GFR 15-29 ml/min Status: Chronic Comment: Following with Dr. Chapman History of Present Illness Date of Admission: 10/25/18 Chief Complaint: shortness of breath. History was predominant taken from emergency department doctor and patient's nephew because patient was on BiPAP on the time of history taking. The patient is a 68 year old M with a significant history of COPD; former smoker; non-ST elevation MT; bowel resection and hypertension who presented with 1 week history of progressively worsening shortness of breath. Associated with his symptoms is productive cough of greenish sputum. While at home he was wheezing. At home he uses oxygen at 3 L. At emergency department his oxygen saturation was 6 L was 85%. Patient was having tachycardia with heart rate as high as 150; and tachypnea with respiratory rate as high as 24. Because of increased work of breathing with retractions patient was placed on BiPAP at the ED. On BiPAP patient respiratory rate decreased to 110. At emergency department patient received steroids and breathing treatment. 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 Nicotine abuse (Chronic) Hypertension (Chronic) COLD (chronic obstructive lung disease) (Chronic) CKD (chronic kidney disease) stage 4, GFR 15-29 ml/min (Chronic) Following with Dr. Chapman Medical History: Medical History (Last Reviewed 10/26/18 @ 09:22 by Dakota Gonzales MD) Non-rheumatic tricuspid valve insufficiency (Chronic) I36.1 mild 1+ regurg per echo 01/21/2015 done @ [facility] Atherosclerosis of coronary artery of [place]lowa de[place]-ni' heart without angina pectoris (Chronic) I25.10 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 Nicotine abuse (Chronic) Z72.0 Hypertension (Chronic) I10 COLD (chronic obstructive lung disease) (Chronic) J44.9 CKD (chronic kidney disease) stage 4, GFR 15-29 ml/min (Chronic) N18.[address] Chapman Arthritis M19.90 Crohns disease K50.90 Non-ST elevation (NSTEMI) myocardial infarction Onset Date: 01/09/15 I21.4 Small bowel obstruction K56.609 Allergies Penicillins Adverse Reaction (Verified 10/25/18 20:16) Other Home Medications: Ambulatory Orders Medication Instructions Recorded Loperamide [Imodium] 2 mg PO DAILY 01/17/15 Surgical History: Surgical History (Last Reviewed 09/28/18 @ 09:22 by May Dhillon) History of left heart catheterization Onset Date: 01/09/15 Z98.890 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 Surgical History: - - left carpal tunnel, L ureteral stent for obstructed stone and removal 07/2013, partial bowel resection Lives: With Family Smoking Status: Former smoker - He reports quitting smoking about a month ago. - *Family History Paternal Family History: Family History (Last Reviewed 10/26/18 @ 09:24 by Dakota Gonzales MD) Father neg FH of ASCVD History Items: - - Denies family history of coronary artery disease Sibling Family History: Family History (Last Reviewed 10/26/18 @ 09:24 by Dakota Gonzales MD) Father neg FH of ASCVD History Items: Cancer - colon, COPD Review of Systems Unable to obtain accurate/complete ROS d/t: Patient on BiPAP. VTE Information - Inpt Only VTE Present on Admission: No VTE Mechan Device Prophylaxis: None VTE Pharm Prophylaxis ordered?: Yes - Physical Exam General: Alert, Oriented x3, Cooperative HEENT: Atraumatic, PERRLA, EOMI, Normocephalic Neck: Supple, No JVD, Negative Carotid Bruits Lungs: Diminished - Severely diminished, Tachypneic, Using Accessory Muscles Cardiovascular: No murmurs, Tachycardic Abdomen: Bowel Sounds Present, Soft, Non Tender Extremities: No edema, Capillary Refill Less than 3 Seconds Skin: No rashes, No breakdown Musculoskeletal: No Tenderness to Palpation of Joints or Extremities Neurological: Neuro grossly intact Psych/Mental Status: Normal Affect, Appropriate Vital Signs Temp Pulse Resp BP Pulse Ox 98.0 F 118 H 16 126/85 H 98 10/25/18 22:35 10/25/18 22:35 10/25/18 22:35 10/25/18 22:35 10/25/18 22:35 Oxygen Flow Rate (L/min) 15 Oxygen Delivery Method Bi-pap Weight: 44.996 kg Body Mass Index (BMI) 16.0 Laboratory Tests Past 24 Hrs WBC 7.0 RBC 4.86 Hgb 14.3 Hct 44.8 MCV 92.2 WBC RBC Hgb Hct MCV MCH MCHC Assessment/Plan All Active Problems (Last Reviewed 09/28/18 @ 09:22 by May Dhillon) COPD with acute exacerbation (Acute) The patient is a 68 year old M with a significant history of COPD; former smoker; non-ST elevation MT; bowel resection; colon resection and hypertension who presented with 1 week history of progressively worsening shortness of breath; productive cough; wheezing was found to be severely hypoxic at emergency department and had increased work of breathing with tachycardia and tachypnea and was subsequently placed on a BiPAP consistent with acute exacerbation of COPD. Acute hypoxemic respiratory failure with hypoxemia and hypercapnia secondary to COPD with acute exacerbation ABG showed PCO2 of 58.6. PH was 7.32. PO2 was 70. Patient received Solu-Medrol the emergency department. Solu- Medrol continued. Scheduled DuoNeb. PRN albuterol. Mucinex ordered. Continue BiPAP. Transition to supplemental oxygen modalities when necessary. Keep oxygen saturation more than 90%. Comprehensive respiratory pathogen panel ordered. Breathing treatments continued. Azithromycin ordered. Hypertension urgency On admission his systolic blood pressure was severely elevated at 196; his diastolic blood pressure was 125. No evidence of end organ damage. Lisinopril continued Because of COPD with acute exacerbation we will start labetalol as needed. Because of tachycardia we will not start hydralazine. Catapres as needed ordered. Trend blood pressures and adjust blood pressure medication. CKD stage III Review of old records show that his CKD is stable. 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 Continue outpatient follow-up. Irritable bowel syndrome/Crohn's Disease: Loperamide and Pentasa continued. DVT prophylaxis Subcutaneous heparin. Code Visit Inpatient E AND M: 10542 Init Hosp L3 10/26/18 0927 <Electronically signed by Dakota Gonzales MD> Date Dakota Gonzales MD Cosigner Signature: Date (if applicable) CC: Dakota Gonzales MD; Jalen Rodríguez MD Signed CBC W/DIFF, AUTOMATED Collected: 10/26/2018 Status: C Source: [place] 8:20 AM [facility] REPOSITORY TYPE CODE TESTS RESULT OUT OF RANGE REFERENCE UNITS LAB L100.1000 4.4-11.0 K/mm3 Low WBC 2.8 LAB L100.1200 4.6-6.2 M/mm3 Low RBC 4.11 LAB L100.1300 13.0-16.5 g/dl Low HGB 12.1 LAB L100.1400 40-54 % Low HCT 38.3 LAB L100.1500 80-94 fL Normal MCV 93.2 LAB L100.1600 27.0-32.0 pg Normal MCH 29.4 LAB L100.1700 32-36 g/gl Low MCHC 31.6 LAB L100.1810 11.6-14.6 % Normal RDW CV 12.7 LAB L100.1820 35.1-43.9 fl Normal RDW SD 42.4 LAB L100.1900 150-450 K/mm3 Normal PLT 152 LAB L100.2000 6.2-12.0 fl Normal MPV 10.2 LAB L100.2100 47-70 % High NEUT% 94.7 LAB L100.2200 19-41 % Low LY% 4.6 LAB L100.2300 0-10 % Normal MONO% 0.7 LAB L100.2400 0-5 % Normal EO% 0.0 LAB L100.2500 0-1 % Normal BASO% 0.0 LAB L100.2550 0.0-0.9 % Normal IM GRAN % 0.000 Result Comment: IG% - Immature Granulocytes (promyelocytes, myelocytes and metamyelocytes) > 1% indicates that a LEFT SHIFT is Present. LAB L100.2620 2.0-7.7 X10 3/uL Normal Absolute Neut 2.7 LAB L100.2720 0.83-4.51 X10 3/ul Low Absolute Lymph 0.13 LAB L100.9900 Normal PATH REV Reviewed Result Comment: Leukopenia. Clinical correlation necessary. Marin Stein M.D. 10/26/18 AMENDED REPORT 10/26/18 1341 PATH REV previously reported as: February arpan Performed By: #### L100.0100 #### [facility] [address] [place], [address] BASIC METABOLIC Collected: 10/26/2018 Status: F Source: [place] PROFILE (BMP) 8:20 AM [facility] REPOSITORY TYPE CODE TESTS RESULT OUT OF RANGE REFERENCE UNITS LAB L501.0100 74-106 mg/dL High GLU 156 Result Comment: Fasting Glucose result greater than or equal to 126 mg/dL suggests DIABETES MELLITUS per A.D.A. criteria. Please note revised GLUCOSE reference range effective 2017. LAB L501.1000 7-18 mg/dL High BUN 25 LAB L501.1100 0.70-1.30 mg/dL High CREAT,SERUM 1.67 Result Comment: The validity of the calculated GFR AND GFRAA in patients over 70 years has not been determined. Clinical correlation is essential. LAB L501.1110 >60 mL/min Low EST GFR 43 Result Comment: Non- GFR Calc LAB L501.1115 >60 mL/min Low EST GFR - AA 53 Result Comment: GFR Calc LAB L501.1255 ml/min Normal Estimated CRCL 23.99 LAB L501.1300 10-20 RATIO Normal BUN/CRE 15.0 LAB L501.2200 8.5-10 mg/dL Normal .1 CA 9.3 LAB L501.5300 136-14 mmol/L Normal 5 NA 141 LAB L501.5600 3.5-5. mmol/L Normal 1 K 4.3 LAB L501.5900 98-107 mmol/L Normal CL 101 LAB L501.6100 21.0-3 mmol/L High 2.0 CO2 33.0 LAB L501.6200 5-15 Normal GAP 7 Performed By: #### L500.2500 #### [facility] [address] [facility] [place], [address] Observed: 10/26/2018 Status: F Source: [place] RESPIRATORY PANEL 4:10 AM [facility] MOLECULAR REPOSITORY RP PANEL ADENOVIRUS Not Detected HUMAN METAPHNEUMO Not Detected INFLUENZA A Not Detected INFLUENZA A (SUBTYPE H1) Not Detected INFLUENZA A (SUBTYPE H3) Not Detected INFLUENZA B Not Detected PARAINFLUENZA 1 Not Detected PARAINFLUENZA 2 Not Detected PARAINFLUENZA 3 Not Detected PARAINFLUENZA 4 Not Detected RHINOVIRUS Not Detected RSV A Not Detected RSV B Not Detected NAAT METHOD Testing was performed using nucleic acid amplification Performed By: #### M100.638 #### [facility] [address] [place], [address] EMERGENCY DEPARTMENT Observed: 10/26/2018 Status: F Source: [place] SUMMARY 12:08 AM [facility] REPOSITORY [facility] Medical Records Department [address] [place] [address] Emergency Department Summary 10/25/182021 MR#: [id number] Acct: [id number] Name: MARK SERRANO Rep #: [id number] : 1950 68 From: Janet Cotton MD PCP: Marcos ABRAHAM,Jalen Mary Status: REG ER - ER Visit Summary Date of Service: 10/25/18 Chief Complaint: Shortness of breath, cough History of Present Illness: The patient is a 68 M presenting with shortness of breath, cough. Patient states this has been ongoing over the past 1.5 weeks. He has had a cough which has been persistent. He has chest pain with cough. He had constant chest pain for the past couple of days. He denies fever. He has a history of COPD. He normally wears 3 L home O2. Physical Examination: Blood pressure 196/125, respiratory rate 23, pulse ox 85% on 6 L, 100% on nonrebreather mask. Patient is afebrile. Alert cachectic. HEENT exam is unremarkable. Neck is supple. Lungs are wheezing and diminished bilaterally. Heart is regular and tachycardic. Abdomen is soft nontender nondistended. Extremities are unremarkable. Skin is warm and dry. No focal neurologic deficit. Remainder of exam is unremarkable. Emergency Department Course and Treatment: Patient was started on noninvasive ventilation. He was given albuterol, Atrovent aerosols. EKG is sinus tachycardia rate of 139. Chest x-ray shows no acute process. CBC, chemistries unremarkable other than creatinine 1.59. Troponin is negative. Lactic acid is normal. ABG shows pH of 7.37, PCO2 58, PO2 of 70. Patient was given Solu-Medrol IV. Repeat heart rate is 118. He is resting comfortably and improved on noninvasive ventilation. Will discuss with hospitalist for admission. Disposition: Admission Impression: COPD exacerbation, hypoxia This note was generated with [employer] dictation software. It may contain incorrect words, spelling, and punctuation that were not noted in review of the chart prior to signing ED Disposition - Plan for ED Patient: Chief Complaint: Shortness of Breath Referrals: Jalen Rodríguez Chi, MD [Primary Care Provider] - What to do if you have Problems For any increased pain, shortness of breath, bleeding, nausea or vomiting, chest pain, or any unexpected problems, contact your Primary Care Provider. Call [facility] ([phone]) or report to the closest Emergency Room. Call 911 if necessary. 10/26/18 0008 <Electronically signed by Janet Cotton MD> Date Janet Cotton MD Cosigner Signature (If Indicated): Date CC: Jalen Rodríguez MD BLOOD GASES BY [facility] Collected: 10/25/2018 Status: F Source: [place] 8:42 PM [facility] REPOSITORY TYPE CODE TESTS RESULT OUT OF RANGE REFERENCE UNITS LAB L9000.9990 Normal BLD GAS TYPE ART LAB L9001.1000 Normal SITE R Radial LAB L9001.1050 O2 Normal Delivery Dev Bi / C PAP LAB L9001.1070 RR Normal 12 LAB L9001.1074 Normal FI02 30 LAB L9001.1088 Normal IPAP 12 LAB L9001.1090 Normal EPAP 6 LAB L9001.1104 Normal Results To ED LAB L9001.1105 Normal Time Given 2036 LAB L9001.1110 7.35-7.45 pH Normal - I-STAT 7.37 LAB L9001.1210 35-45 mmHg High pCO2 - ISTAT 58.6 LAB L9001.1310 75-100 mmHG Low PO2 I-STAT 70 LAB L9001.2300 22-26 mmol/L High HCO3 ISTAT 33.5 LAB L9001.2400 -2 to +2 mmol/L High BE ISTAT 8 LAB L9001.2415 mmol/L Normal TOTAL CO2 35 ISTAT LAB L9001.2425 95-99 % Low SO2 ISTAT 93 Performed By: #### L9000.0800 #### [facility] Point of Care [address] [place] [address] LACTIC ACID Collected: 10/25/2018 Status: F Source: [place] 8:23 PM [facility] REPOSITORY Order Comment: Yes/No query for Sepsis Lactate Rule Y TYPE CODE TESTS RESULT OUT OF RANGE REFERENCE UNITS LAB L503.6005 0.4-2.0 mmol/L Normal LACTIC ACID 1.7 Performed By: #### L503.6005 #### [facility] [address] [place], [address] CHEST 1 VIEW Observed: 10/25/2018 Status: F Source: [place] (PORTABLE) 8:18 PM [facility] REPOSITORY [facility] Imaging Services [address] [place] [place] [address] Chest 1 View (Portable) MR#: [id number] Acct: [id number] Name: MARK SERRANO Rep #: [id number] : 1950 M 68 From: Taryn Cummins MD PCP: Marcos ABRAHAM,WISETIVI Status: REG ER Study: Chest 1 View (Portable) Date of Exam: 10/25/18 Exam# [id number] Ordering Dr: Janet Cotton MD STUDY: X-RAY CHEST REASON FOR EXAM: Male, 68 years old. Shortness of breath TECHNIQUE: A single frontal view of the chest was obtained. COMPARISON: December 20, 2017 FINDINGS: Lines and tubes: None. Lungs: Hyperinflated. Coarse interstitial markings are again seen in the mid and upper lungs. No focal airspace opacities. Pleura: No demonstrated abnormality. Mediastinum/alo: Unremarkable. Cardiovascular: Normal size cardiac silhouette. Central vascularity unremarkable. Atherosclerotic calcifications in the thoracic aorta. Soft tissues: Unremarkable. Bones: Unremarkable. Upper abdomen: No demonstrated abnormality. RAD/Chest 1 View (Portable) IMPRESSION: No acute cardiopulmonary abnormalities. Stable COPD with mild fibrosis. Electronically Signed: Taryn Cummins MD at 21:59 EST Tel Direct: [phone], Service support , CC: Janet Cotton MD; Jalen Rodríguez MD World Travel Counselor: Signed CBC W/DIFF, AUTOMATED Collected: 10/25/2018 Status: F Source: [place] 8:15 PM [facility] REPOSITORY TYPE CODE TESTS RESULT OUT OF RANGE REFERENCE UNITS LAB L100.1000 4.4-11.0 K/mm3 Normal WBC 7.0 LAB L100.1200 4.6-6.2 M/mm3 Normal RBC 4.86 LAB L100.1300 13.0-16.5 g/dl Normal HGB 14.3 LAB L100.1400 40-54 % Normal HCT 44.8 LAB L100.1500 80-94 fL Normal MCV 92.2 LAB L100.1600 27.0-32.0 pg Normal MCH 29.4 LAB L100.1700 32-36 g/gl Low MCHC 31.9 LAB L100.1810 11.6-14.6 % Normal RDW CV 14.0 LAB L100.1820 35.1-43.9 fl High RDW SD 45.3 LAB L100.1900 150-450 K/mm3 Normal PLT 194 LAB L100.2000 6.2-12.0 fl Normal MPV 10.7 LAB L100.2100 47-70 % High NEUT% 77.0 LAB L100.2200 19-41 % Low LY% 11.2 LAB L100.2300 0-10 % High MONO% 10.1 LAB L100.2400 0-5 % Normal EO% 0.9 LAB L100.2500 0-1 % Normal BASO% 0.4 LAB L100.2550 0.0-0.9 % Normal IM GRAN % 0.400 Result Comment: IG% - Immature Granulocytes (promyelocytes, myelocytes and metamyelocytes) > 1% indicates that a LEFT SHIFT is Present. LAB L100.2620 2.0-7.7 X10 3/uL Normal Absolute Neut 5.4 LAB L100.2720 0.83-4.51 X10 3/ul Low Absolute Lymph 0.78 Performed By: #### L100.0100 #### [facility] [address] [place], [place], [address] BASIC METABOLIC Collected: 10/25/2018 Status: F Source: [place] PROFILE (BMP) 8:15 PM [facility] REPOSITORY TYPE CODE TESTS RESULT OUT OF RANGE REFERENCE UNITS LAB L501.0100 74-106 mg/dL High GLU 130 Result Comment: Fasting Glucose result greater than or equal to 126 mg/dL suggests DIABETES MELLITUS per A.D.A. criteria. Please note revised GLUCOSE reference range effective 2017. LAB L501.1000 7-18 mg/dL Normal BUN 18 LAB L501.1100 0.70-1.30 mg/dL High CREAT,SERUM 1.59 Result Comment: The validity of the calculated GFR AND GFRAA in patients over 70 years has not been determined. Clinical correlation is essential. LAB L501.1110 >60 mL/min Low EST GFR 46 Result Comment: Non- GFR Calc LAB L501.1115 >60 mL/min Low EST GFR - AA 56 Result Comment: GFR Calc LAB L501.1255 ml/min Normal Estimated CRCL 27.51 LAB L501.1300 10-20 RATIO Normal BUN/CRE 11.3 LAB L501.2200 8.5-10 mg/dL Normal .1 CA 9.8 LAB L501.5300 136-14 mmol/L Normal 5 NA 142 LAB L501.5600 3.5-5. mmol/L Normal 1 K 4.8 Result Comment: Moderate Hemolysis, Result may be falsely increased. LAB L501.5900 98-107 mmol/L Normal CL 101 LAB L501.6100 21.0-32.0 mmol/L High CO2 33.0 LAB L501.6200 5-15 Normal 8 GAP Performed By: #### L500.2500, L501.4010 #### [facility] [address] [facility], [address] TROPONIN-I Collected: 10/25/2018 Status: F Source: [place] 8:15 PM [facility] REPOSITORY TYPE CODE TESTS RESULT OUT OF RANGE REFERENCE UNITS LAB L501.4010 <0.045 ng/mL Normal < 0.015 TROPONIN-I Result Comment: TROPONIN-I EXPECTED VALUES <0.045 Negative 0.045 - 0.590 Consistent with Cardiac Damage > OR = 0.600 Critical Value Not every elevated troponin is indicative of MT. These values should be used with clinical judgement in examining the patient's clinical picture for diagnosis. To establish a diagnosis of MT versus myocardial injury, there must be a demonstrated rise and/or fall in the troponin values, in addition to ischemic symptoms, EKG changes, new regional wall motion abnormality, and/or angiographical evidence. PLEASE NOTE: REFERENCE RANGES EDITED 18 Performed By: #### L500.2500, L501.4010 #### [facility] [address] [place], [address] 6 MINUTE WALK TEST Observed: 10/04/2018 Status: F Source: [place] 4:10 PM [facility] REPOSITORY [facility] Pulmonary Services/Neurology [address] [place] [id number] MR#: [id number] Acct: [id number] Name: MARK SERRANO Rep #: [id number] : 1950 68 From: Salas Ocampo MD Referring Dr: Delma Frey NP Date: Ordering Dr: Beatrice: M C Location: PSN PSN 6 Minute Walk Test - 6 Minute Walk Test 6 Minute Walk Test: 6 Minute Walk Test PSN:6-Minute Walk Test Start: 10/04/18 14:02 Freq: Status: Active Protocol: RESP.6MINW Document 10/04/18 12:27 [facility] (Rec: 10/04/18 14:05 [facility] [id number]) 6 Minute Walk Test Date Performed 10/04/18 Time Performed 12:27 Height 5 ft 5 in Weight: 90.265 kg Weight in Pounds 199.[address]: Delma Frey Assistive device used: None Pre-test Oxygen Delivery Method Room Air Pulse Ox (%) 94 Pulse Rate (60-100 beats/min) 106 H Dyspnea Iva Scale (0-10) 0.5 Exertion Iva Scale (6-20) 11 Reported Symptoms Increased Work of Breathing 1st minute Oxygen Delivery Method Room Air Pulse Ox (%) 90 Pulse Rate (60-100 beats/min) 126 H 2nd minute Oxygen Delivery Method Room Air Pulse Ox (%) 86 Pulse Rate (60-100 beats/min) 92 Dyspnea Iva Scale (0-10) 113 3rd minute Oxygen Flow Rate (L/min) (L/min) 2 Oxygen Delivery Method Nasal Cannula Pulse Ox (%) 92 Pulse Rate (60-100 beats/min) 113 H 4th minute Oxygen Flow Rate (L/min) (L/min) 2 Oxygen Delivery Method Nasal Cannula Pulse Ox (%) 93 Pulse Rate (60-100 beats/min) 122 H 5th minute Oxygen Flow Rate (L/min) (L/min) 2 Oxygen Delivery Method Nasal Cannula Pulse Ox (%) 91 Pulse Rate (60-100 beats/min) 120 H 6th minute Oxygen Flow Rate (L/min) (L/min) 2 Oxygen Delivery Method Nasal Cannula Pulse Ox (%) 92 Pulse Rate (60-100 beats/min) 122 H Post-test Oxygen Flow Rate (L/min) (L/min) 2 Oxygen Delivery Method Nasal Cannula Pulse Ox (%) 96 Pulse Rate (60-100 beats/min) 103 H Dyspnea Iva Scale (0-10) 0 Exertion Iva Scale (6-20) 12 Full Laps Walked 11 Partial Lap, Number of Tiles Walked 23 Total Distance Walked (ft) 672 - Interpretation Interpretation: The patient was able to ambulate only 672 feet over the course of 6 minutes with no assistive devices or breaks. The patient did desaturate to 86% of the second minute requiring 2 L nasal cannula oxygen. Patient was noted to be tachycardic throughout testing with a peak heart rate of 122 bpm. These findings are consistent with a cardiopulmonary limit to exercise tolerance - Recommendations Recommendations: The patient requires no supplemental oxygen at rest, but should be using 2 L nasal cannula with any exertion. 10/04/18 1610 <Electronically signed by Salas Ocampo MD> Date Salas Ocampo MD CC: Date Dictated: 10/04/181607 Date Transcribed: 10/04/181607 World Travel Counselor: Salas Ocampo Signed PULMONARY VISIT REPORT Observed: 09/28/2018 Status: F Source: [place] 9:58 AM [facility] REPOSITORY [facility] Pulmonary Medicine of [address] [place] [address] OFFICE VISIT Date of Service: 09/28/18 MR#: [id number] Acct: [id number] Name: MARK SERRANO Rep #: [id number] : 1950 Provider: Salas Ocampo MD Age/Sex: 68/M Location: [facility] Status: Signed Assessment AND Plan Problems 1. Stage 4 very severe COPD by GOLD classification J44.9 Plan Patient overall appears to be grossly unchanged compared to previous visits. Patient is demented, but no significant wheezing is reported. Clinical suspicion for advanced COPD leading to breathlessness on a daily basis. Stressed to the patient the importance of walking oximetry to rule out exertionally induced hypoxemia. Discussed with the patient about the role of possible palliative care, but patient is not interested at this time. Continue with current medications. Obtain walking. Possible out of care consult in the future. Orders Orders: Plan Detail Follow Up 4 Months (CSM) HPI 3 M FU: Chief Complaint: Shortness of breath on exertion Details: Patient is a 68-year-old male, currently under the care of Dr. Rodríguez, who presents for evaluation secondary to shortness of breath on exertion. Since last visit, patient reports he was in the ER for breathing x1 and also had a psychiatric evaluation following the of his partner. Patient states he did require supplemental oxygen when admitted to the hospital for his breathing issue in [place]. Patient states he feels improved from that point, but is still having significant shortness of breath on exertion and overall feels subjectively worse compared to previous. Patient was supposed to have a complete PFT and walking oximetry prior to this office visit, but this was not completed. Patient states the previous. He is set me back for weeks. Patient reports he has been compliant with his Symbicort and Spiriva therapy. Patient denies any complications with therapy including thrush, hoarseness or sore throat. Patient does report that he feels his Ventolin is not working as well. Patient continues to have a cough productive of clear to white sputum. Patient does report that he has a roommate that is currently smoking in the house. Patient is unclear if this is leading to more hoarseness or if it is the cold weather. HPI Comments Details: Intake Vital Signs09/28/18 Body Mass Index (BMI) 15.5 09/28/18 Height 5 ft 5.5 in 09/28/18 Weight: 44.906 kg Intake Visit Reasons: 3 M FU Accompanied by: Self Allergies Penicillins Adverse Reaction (Verified 09/28/18 09:22) Other Medications Loperamide [Imodium] 2 mg PO DAILY 01/17/15 [History Confirmed 09/28/18] atorvastatin 20 mg tablet 20 mg PO QDAY #30 tab 11/25/17 [Rx Confirmed 09/28/18] lisinopril 5 mg tablet 5 mg PO QDAY #30 tab 11/25/17 [Rx Confirmed 09/28/18] Mesalamine [Pentasa] 500 mg PO DAILY 12/20/17 [History Confirmed 09/28/18] Budesonide/Formoterol 160/4.5 [Symbicort 160/4.5 Mcg Inhaler (SP)] 1 puff INHALATION DAILY #1 inhaler 12/22/17 [Rx Confirmed 09/28/18] albuterol sulfate 2.5 mg/3 mL (0.083 %) solution for nebulization 2.5 mg INHALATION Q4H PRN PRN #180 vial 06/23/18 [Rx Confirmed 09/28/18] albuterol sulfate HFA 90 mcg/actuation aerosol inhaler 2 puff INHALATION Q4H PRN g 06/23/18 [History Confirmed 09/28/18] tiotropium bromide 18 mcg capsule with inhalation device 1 cap INHALATION DAILY #30 inh 06/23/18 [Rx Confirmed 09/28/18] [facility] Medical History Non-rheumatic tricuspid valve insufficiency (Chronic) Atherosclerosis of coronary artery of [place] heart without angina pectoris (Chronic) Nicotine abuse (Chronic) Hypertension (Chronic) COLD (chronic obstructive lung disease) (Chronic) CKD (chronic kidney disease) stage 4, GFR 15-29 ml/min (Chronic) Arthritis (Chronic) Crohns disease (Chronic) Non-ST elevation (NSTEMI) myocardial infarction (Chronic 01/09/15) Small bowel obstruction (Resolved) Surgical History History of left heart catheterization (Acute 01/09/15) Family History Father neg FH of ASCVD Social History Smoking Status: Former smoker quit date: 10/25/16 pack-years: 75 alcohol intake: never substance use type: does not use caffeine: Yes Type: coffee Number of servings: 3 Review of Systems Const CONSTITUTIONAL: Positive fatigue; negative anorexia, body ache, chills, daytime sleepiness, fever(s), night sweats, oral thrush, stops breathing during sleep, weight loss, sleeping in chair, weight loss, weight gain, frequent colds, seasonal allergies, other, headache(s) or orthopnea EETM Ear Nose Throat Mouth: Positive hearing normal, hoarseness and nasal discharge; negative hard of hearing, dry mouth in morning, change in vision, itchy eyes, eye pain, swallowing Difficulty, ear pain, nose bleed, headache(s), mouth pain, nasal congestion, post nasal drip, sinus pain, sinus pressure, sore throat or other Cardio Cardiovascular: Negative chest pain, chest pain at rest, chest pain with activity, irregular heart rhythm, edema, shortness of breath when lying down, palpitations, murmur or other Resp Respiratory: Positive as per HPI, shortness of breath shortness of breath: Positive with activity, wheezing and cough cough: Positive productive color: Positive thick and clear; negative pain with cough, chest congestion, chest tightness, pain on inspiration, inhalers, increase use of rescue inhalers, snoring, apnea or other Gastro Gastrointestional: Negative bloody stools, change in appetite, difficulty swallowing, reflux, hematemesis, melena stool, loose stool, constipation or other Genitourinary: Negative blood in urine, nocturia, pain with urination or other Musc Musculoskeletal: Negative body pain, back pain, neck pain or other Skin/Breast Skin/Breast: Negative dry skin, itching, rash, unusual bruising, breast lump or other Neuro Neurological: Negative restless legs, confusion, weakness or other Psych Psychocological: Negative abnormal sleep pattern, anxiety, thoughts of hurting self/others, hopelessness or other Lymph Lymphatic: Negative easy bleeding, easy bruising, swollen lymph nodes or other Exam Const Constitutional: Positive conversant, cooperative, in no acute respiratory distress, well developed, well nourished, thin, appears older than stated age and frail appearing; negative wearing supplemental oxygen Head Head: Positive normocephalic and atraumatic; negative cyanosis of lips/distal nose, frontal sinus tenderness or maxillary sinus tenderness Eyes Eye: Positive clear conjunctiva; negative nystagmus, scleral abnormality or cataract present Ears Ear: Positive hearing normal and external ears normal; negative hard of hearing Nose Nose: Positive external nose normal, septum normal and no nasal discharge; negative epistaxis or nasal polyp Mouth Mouth: Positive oral mucosae normal, no lesions and posterior oropharynx is adequate; negative post nasal drip, malodorous breath or oral thrush present Mallampati Score: I: Mallampati Score Neck Neck: Positive normal visual inspection, full ROM and trachea midline; negative lymphadenopathy or JVD Chest Wall Chest: Positive symmetric chest movement and increased A/P diameter; negative crepitus or tenderness Resp lung sounds: Positive clear to auscultation, diminished and prolonged expiratory time; negative wheezes, rhonchi, rales, use of accessory muscles, wheeze present on forced exhalation or dullness to percussion Cardio Cardiac: Positive regular rate, S1 normal, regular rhythm and S2 normal; negative murmur, rub or gallop GI GI: Positive normal to inspection and normal bowel sounds; negative distended, ascites or epigastric tenderness Genitourinary: Positive deferred Musc Musculoskeletal: Positive steady gait; negative using an assistive device for ambulation, kyphosis or scoliosis Skin Pulmonary Skin Exam: Positive intact, ulcers and dermal atrophy; negative rash, lesion or erythema Pulses Pulse: Yes radial pulses present Extremities Extremities: Yes capillary refill normal, Yes clubbing, No cyanosis, No edema, No stasis dermatitis Neuro Neurologic: Yes conversant, Yes no focal neuro deficits, Yes normal concentration, Yes understands questions, Yes cooperative, Yes normal cognition, Yes normal coordination Lymph Lymphatic: No lymphadenopathy Psych Appearance: Positive grossly normal Mental Status: Positive mental status grossly normal Mood: Positive congruent mood Affect: Positive normal affect Coding Level of Care Code Off vis,est,level 3 Diagnoses Stage 4 very severe COPD by GOLD classification J44.9 09/28/18 0958 <Electronically signed by Salas Ocampo MD> Date Salas Ocampo MD Cosigner Signature: Date (if applicable) CC: Jalen Rodríguez MD CONSULT PROG Observed: 07/13/2018 Status: COMPLETED Source: [place] 4:59 PM CLINIC OTHER CAMPUS REPOSITORY O ID: [id number] Author: Geovanny Sanders Service: Gastroenterology Author Type: Physician Type: Consult Progress Note Filed: 07/13/2018 5:03 PM Note Text: GI CONSULT PROGRESS NOTE SERVICE DATE: 07/13/2018 SERVICE TIME: 4:59 PM CONSULTING SERVICE: Gastroenterology Subjective INTERVAL HISTORY: Pt is dressed and ready for dc as ordered by surgical svc. Denies abd pain, n/v, berkley solid food today. MEDICATIONS: Current hospital medications: [START ON 07/14/2018] pantoprazole DR 40 mg tab(s) (PROTONIX) 40 mg ORAL DAILY (6 AM) acetaminophen 650 mg suppository (TYLENOL) 650 mg RECTAL q 4 H PRN phenol 1 Ambia (CHLORASEPTIC) 1 Ambia MUCOUS MEMBRANE (TOPICAL MOUTH AND THROAT) q 2 H PRN fluticasone-vilanterol 100-25 mcg/dose 1 Inhalation (BREO ELLIPTA) 1 Inhalation INHALATION DAILY ondansetron 4 mg tab(s) (ZOFRAN) 4 mg ORAL q 4 H PRN ondansetron (PF) 4 mg injection (ZOFRAN) 4 mg INTRAVENOUS q 4 H PRN promethazine 12.5 mg tab(s) (PHENERGAN) 12.5 mg ORAL q 6 H PRN prochlorperazine 5 mg injection (COMPAZINE) 5 mg INTRAVENOUS q 4 H PRN heparin 5,000 Units injection 5,000 Units SUBCUTANEOUS q 12 H 0.9% NaCl 3-5 mL 3-5 mL INTRAVENOUS q 12 H morphine 1-2 mg injection 1-2 mg INTRAVENOUS q 4 H PRN ipratropium-albuterol 3 mL nebulizer solution (DUONEB) 3 mL INHALATION q 4 H PRN 0.9% NaCl 10 mL 10 mL INTRAVENOUS q 12 H 0.9% NaCl 20 mL 20 mL INTRAVENOUS PRN Objective PHYSICAL EXAM: VITALS:BP 135/72 Pulse 72 Temp 36.5 ?C (97.7 ?F) (Oral) Resp 18 Ht 165.1 cm (5' 5) Wt 45 kg (99 lb 1.6 oz) SpO2 98% BMI 16.49 kg/m? ABDOMEN: soft, scaphoid, NT, ND no succussion splash. DATA: Diagnostic tests reviewed for today's visit: Most recent imaging Impression/Recommendations 1) No outlet obstruction by EGD-see report. Clinically sxs resolved. Bx's reviewed. Will sign off. will continue to f/u the patient SIGNATURE: Geovanny Sanders MD PATIENT NAME: Mark Serrano DATE: July 13, 2018 TIME: 4:59 PM PAGER/CONTACT #: CASE MANAGEM Observed: 07/13/2018 Status: COMPLETED Source: [place] 1:29 PM CLINIC OTHER CAMPUS REPOSITORY HNO ID: [id number] Author: Lalita (Rn) NORMA Ritter Service: Care Management Author Type: Registered Nurse Type: Care Mgt Progress Note Filed: 07/13/2018 1:31 PM Note Text: CARE MANAGEMENT DISCHARGE NOTE SERVICE DATE: 07/13/2018 SERVICE TIME: 1:29 PM LOS: 6 days Admission Date: 07/06/2018 DISCHARGE ARRANGEMENT (list agency and phone number) Home Provider: yaima Phone: [phone] CAREGIVER ASSESSMENT: Caregiver is ready, willing and able to meet the patient's needs as recommended by the inter-professional team? No Caregiver Needed Patient's transition needs and plan for meeting these needs: dc home no needs noted Does the patient have an acute stroke diagnosis, or has the patient had a stroke during this admission? No HANDOFF COMMUNICATION: no needs at this time. TRANSPORTATION ARRANGEMENTS: Car friend to transport patient home ADDITIONAL CONTACT RESOURCES: n/a n/a SIGNATURE: Lalita Ritter RN PATIENT NAME: Mark Serrano DATE: July 13, 2018 TIME: 1:29 PM PAGER/CONTACT #: [phone] CNDS Observed: 07/13/2018 Status: COMPLETED Source: [place] 11:43 AM [facility] OTHER CAMPUS REPOSITORY HNO ID: [id number] Author: Amy Corrales Service: Hospital Medicine Author Type: Physician Type: Discharge Summaries Filed: 07/13/2018 11:45 AM Note Text: DISCHARGE SUMMARY PATIENT NAME: Mark Serrano ADMISSION DATE: 07/06/2018 DISCHARGE DATE: 07/13/2018 Attending Physician: Amy Corrales Code Status: Not on file Highest Readmission Risk Score: 17 The 30 day readmissions risk score is derived from an internally validated risk model which evaluates patient level characteristics, utilization history, medication orders and lab results up until the day of discharge. Patients with a score of 40 or above are considered highest risk for readmission. Specific patient level drivers will be listed at the bottom of the summary. Reason for Hospitalization: Intractable nausea/vomiting and weight loss Diagnosis: Principal Problem (Resolved): Vomiting Active Problems: Hypertension COPD (chronic obstructive pulmonary disease) (HCC) Nicotine use disorder, F17.2 Resolved Problems: Bowel obstruction (HCC) SBO (small bowel obstruction) ([facility]) Hospital Course as Described to the Patient: You were admitted for Intractable nausea/vomiting and weight loss. Mr. Serrano was admitted with intractable nausea/vomiting and weight loss. There was an initial concern for small bowel obstruction as such, he was made NPO and a NG tube was placed. He was followed by GI and general surgery service. He was eventually started on TPN due to poor PO intake. A barium swallow showed prominent dilatation of the duodenum, measuring up to approximately 6 cm. ?The jejunum and ileum appear decompressed with concern for SMA syndrome. Gastric emptying study was unremarkable, an EGD showed no obstruction, did show some esophagitis and trauma due to NG tube insertion. Biopsies were negative for H pylori but confirmed chronic gastritis. His symptoms did eventually resolve, he was advanced to regular diet and tolerated PO intake well. His TPN was discontinued and he was discharged home in stable medical condition to continue on PPI and followup with GI as outpatient. ? Transitions of Care Critical Issues: LABS AND PROCEDURES PENDING AT DISCHARGE: Test Results Not Yet Available from This Hospitalization: Please Review at Your Follow Up Appointment Procedure Component Value Units Date/Time MAGNESIUM BLOOD (AK,AV,EU,FV,HL,GILES,MM,SP) [[id number]] Collected: 07/13/18229 Order Status: Sent Lab Status: No result Specimen: Blood from BLOOD PHOSPHORUS BLOOD (AK,AV,EU,FV,HL,GILES,MM,SP) [[id number]] Collected: 07/13/18229 Order Status: Sent Lab Status: No result Specimen: Blood from BLOOD MAGNESIUM BLOOD (AK,AV,EU,FV,HL,GILES,MM,SP) [[id number]] Collected: 07/11/184 Order Status: Sent Lab Status: No result Specimen: Blood from BLOOD PHOSPHORUS BLOOD (AK,AV,EU,FV,HL,GILES,MM,SP) [[id number]] Collected: 07/11/18253 Order Status: Sent Lab Status: No result Specimen: Blood from BLOOD No pending results. Additional Provider to Provider Information: Principal Problem (Resolved): Intractable nausea/vomiting and abdominal pain: Initial concern for small bowel obstruction and possible SMA syndrome. He was followed by general surgery and GI services. Gastric emptying study was unremarkable, EGD showed no duodenal obstruction, however, did confirm gastritis and esophagitis. His diet was advanced to regular and his symptoms resolved. He is to continue on PPI as outpatient. Disposition: routine PCP followup in 1-2 weeks, RTER if symptoms persists or worsens. Operations During Hospitalization: None Procedures During Hospitalization: EGD Consulting Teams During Hospitalization: Treatment Team: Attending Provider: Amy Corrales Consulting: Jose Lee Primary Service: Cristy Pena Consulting: Kay Cummings Consulting: Christoph Orlando Patient Condition @ Discharge: Stable Discharge Disposition: Home/Self Care Discharge Physical Exam: VITAL SIGNS: BP 135/72 Pulse 72 Temp 36.5 ?C (97.7 ?F) (Oral) Resp 18 Ht 165.1 cm (5' 5) Wt 45 kg (99 lb 1.6 oz) SpO2 98% BMI 16.49 kg/m? GENERAL: Alert, no distress, cooperative SKIN: Skin color, texture, turgor normal. No rashes or lesions. LUNGS: Lungs clear to auscultation, Good diaphragmatic excursion CARDIAC: Normal S1 and S2; no rubs, murmurs, or gallops ABDOMEN: Abdomen soft, non-tender, BS normal, No masses or organomegaly EXTREMITIES: Extremities normal, no deformities, edema, clubbing or skin discoloration. Good capillary refill., No ulcers PULSES: 2+ radial, 2+ carotid Information Provided to Patient: see d/c instructions Diet: Resume pre-hospital diet Renal Activity: Resume pre-hospital activity Wound/Surgical Site Care: ALLERGIES Allergen Reactions - Penicillin Mental Status Change Discharge Medications: Current Discharge Medication List START taking these medications pantoprazole DR (PROTONIX) 40 mg Take 40 mg by mouth DAILY (6 AM). Qty: 30 tablet Refills: 0 CONTINUE these medications which have NOT CHANGED atorvastatin (LIPITOR) 20 mg Take 20 mg by mouth once daily. budesonide-formoterol (SYMBICORT) 1 Puff Inhale 1 Puff as instructed once daily. Mesalamine (PENTASA) 500 mg Take 500 mg by mouth four times daily. melatonin 10 mg Take 10 mg by mouth daily at bedtime. albuterol HFA (PROVENTIL HFA, VENTOLIN HFA) 2 Puffs Inhale 2 Puffs as instructed as directed. lisinopril (ZESTRIL, PRINIVIL) 5 mg Take 5 mg by mouth once daily. DALIRESP 500 mcg Take 500 mcg by mouth once daily. SPIRIVA WITH HANDIHALER 1 Puff Inhale 1 Puff as instructed once daily. acetaminophen-HYDROcodone (VICODIN) 1 tablet Take 1 tablet by mouth every 6 hours as needed. STOP taking these medications loperamide (IMODIUM) 2 mg Comments: Reason for Stopping: loperamide HCl (IMODIUM ORAL) Comments: Reason for Stopping: ciprofloxacin HCl (CIPRO) 250 mg Comments: Reason for Stopping: predniSONE (DELTASONE) 20 mg Comments: Reason for Stopping: metroNIDAZOLE (FLAGYL) 500 mg Comments: Reason for Stopping: Future Appointments: Follow Up with PCP: Jacqui Cadet MD Appointments for Next 45 Days None The patient's risk for 30-day readmission is determined using the following contributing factors: Pt variables contributing to increased readmission risk: 35 Most Recent BUN Result 14 Active Medication Orders 8.6 First Resulted Calcium During Admission 1 Insurance - Medicare 1 Discharge Disposition - Home 1 History of COPD 1 Active Anticoagulant TIME OF CARE: Discharge Management: I personally spent greater than 30 minutes involved in the discharge management of this patient. SIGNATURE: Amy Corrales MD PATIENT NAME: Mark Serrano DATE: July 13, 2018 TIME: 11:43 AM PAGER/CONTACT #: terrence pena NUTRITION Observed: 07/13/2018 Status: COMPLETED Source: [place] 10:52 AM [facility] OTHER [facility] REPOSITORY HNO ID: [id number] Author: Maris Patrick RD Service: NST-Nutrition Support Team Author Type: Registered Dietitian Type: Nutrition Filed: 07/13/2018 10:56 AM Note Text: Attestation signed by Stefan Heller at 07/13/2018 2:05 PM Discussed with the RD and agree with RD's findings and plan as documented in the RD's note. Diet advanced; will d/c TPN and monitor Stefan Heller MD D/w Dr Heller Diet advanced to soft gi--> tolerating so far +BM--> at baseline Lytes reviewed GS/GI signed off DC TPN in [facility] Monitor oral intake, encouraged grazing Maris Patrick [facility] NST--> [id number] CASE MANAGEM Observed: 07/13/2018 Status: COMPLETED Source: [place] 10:14 AM [facility] REPOSITORY HNO ID: [id number] Author: Lalita (Rn) Ritter, RN Service: Care Management Author Type: Registered Nurse Type: Care Mgt Progress Note Filed: 07/13/2018 10:16 AM Note Text: CARE MANAGEMENT PROGRESS NOTE SERVICE DATE: 07/13/2018 SERVICE TIME: 10:14 AM LOS: 6 days Needs Prior to Discharge: To Be Determined;Home Care Order;OT/PT Evaluation Chart reviewed. Gi following. Continues on TPN. Advanced diet to regular for lunch. DC plan is home, once medically stable. Will follow for any transitional needs SIGNATURE: Lalita Ritter RN PATIENT NAME: Mark Serrano DATE: July 13, 2018 TIME: 10:14 AM PAGER/CONTACT #: [phone] PROGRESS Observed: 07/13/2018 Status: COMPLETED Source: [place] 6:52 AM CLINIC OTHER CAMPUS REPOSITORY HNO ID: [id number] Author: Mojgan (Salon Shampoo Assistant) Megan Service: General Surgery Author Type: Nurse Specialist Type: Progress Notes Filed: 07/13/2018 10:21 AM Note Text: Emergency General Surgery Progress Note SERVICE DATE: 07/13/2018 SUBJECTIVE: No acute events overnight. Sts feeling well. Tolerating soft GI diet. Bowel function returned to normal for me - sts diarrhea stool with Crohns for many years. Denies N/V. Denies abdominal pain. TPN infusing. Tolerating diet Parenteral Nutrition - Adult DIET GASTRO INTESTINAL Nausea No Emesis No Flatus Yes Bowel movement Yes Pain Controlled Yes Ambulating in room OBJECTIVE: Vitals: Temp (24hrs), Av.6 ?C (97.9 ?F), Min:36.5 ?C (97.7 ?F), Max:36.7 ?C (98.1 ?F) BP 135/72 Pulse 72 Temp 36.5 ?C (97.7 ?F) (Oral) Resp 18 Ht 165.1 cm (5' 5) Wt 45 kg (99 lb 1.6 oz) SpO2 98% BMI 16.49 kg/m? O2 Therapy: Nasal Cannula IANDO: Date 07/12/18699 - 07/13/18 0659 07/13/18699 - 07/14/18 0659 Shift 3326-7943 4657-0239 6703-5802 24 Hour Total 0250-9432 4031-2055 6201-1436 24 Hour Total I N T A K E PO 240 240 PO 240 240 Shift Total 240 240 O U T P U T Urine 1 550 551 500 500 Void (ml) 550 550 500 500 Urine Not Saved 1 1 Shift Total 1 550 551 500 500 Weight (kg) 44.1 44.1 45 45 45 45 45 45 MEDICATIONS Current Facility-Administered Medications: Parenteral Nutrition - Adult INTRAVENOUS ONCE TPN (1800 START) pantoprazole 40 mg injection (PROTONIX) 40 mg INTRAVENOUS DAILY acetaminophen 650 mg suppository (TYLENOL) 650 mg RECTAL q 4 H PRN phenol 1 Ambia (CHLORASEPTIC) 1 Ambia MUCOUS MEMBRANE (TOPICAL MOUTH AND THROAT) q 2 H PRN fluticasone-vilanterol 100-25 mcg/dose 1 Inhalation (BREO ELLIPTA) 1 Inhalation INHALATION DAILY ondansetron 4 mg tab(s) (ZOFRAN) 4 mg ORAL q 4 H PRN Or ondansetron (PF) 4 mg injection (ZOFRAN) 4 mg INTRAVENOUS q 4 H PRN promethazine 12.5 mg tab(s) (PHENERGAN) 12.5 mg ORAL q 6 H PRN prochlorperazine 5 mg injection (COMPAZINE) 5 mg INTRAVENOUS q 4 H PRN heparin 5,000 Units injection 5,000 Units SUBCUTANEOUS q 12 H 0.9% NaCl 3-5 mL 3-5 mL INTRAVENOUS q 12 H morphine 1-2 mg injection 1-2 mg INTRAVENOUS q 4 H PRN ipratropium-albuterol 3 mL nebulizer solution (DUONEB) 3 mL INHALATION q 4 H PRN pantoprazole 40 mg injection (PROTONIX) 40 mg INTRAVENOUS DAILY (6 AM) 0.9% NaCl 10 mL 10 mL INTRAVENOUS q 12 H 0.9% NaCl 20 mL 20 mL INTRAVENOUS PRN Labs: Recent Labs 07/13/18 0442 07/13/18 0230 07/12/18 0220 NA -- 138 137 K -- 4.9 4.0 CHLOR -- 102 98 CO2 -- 32 35* BUN -- 35* 36* CREAT -- 1.41* 1.44* GLUC -- 98 130* ANION -- 9 8 CA -- 8.1* 7.8* MG -- 2.2 2.0 P -- 3.3 3.5 WBC 4.06* -- -- HB 11.0* -- -- HCT 34.6* -- -- PLT 110* -- -- Exam: GENERAL: No distress, Alert NEURO: AANDOx3, CN II-XII grossly intact HEENT: normocephalic, atraumatic LUNGS: Unlabored breathing on RA CARDIAC: Regular rate and rhythm as above ABDOMEN: Soft, non-distended, NTP EXTREMITIES: ALBERTS, No deformities, No edema, PPP SKIN: Skin color, texture, turgor normal ? ASSESSMENT AND PLAN: Active Hospital Problems Diagnosis Date Noted - Vomiting 07/06/2018 Overview Note: Added automatically from request for surgery [id number] - Bowel obstruction ([facility]) 07/07/2018 - SBO (small bowel obstruction) ([facility]) 07/07/2018 - Nicotine use disorder, F17.2 07/07/2018 - Hypertension - COPD (chronic obstructive pulmonary disease) ([facility]) 68 year old male with SBO, significant weight loss/malnutrition, concern for SMA syndrome - Medical management per primary - Gastric emptying study - WNL - TPN per NST - EGD: No duodenal obstruction seen, Tortuous desc duodenum, Esophagitis at GE jxn, NGT trauma - Surgical Path: HP-, chronic gastritis - Protonix daily - Surgery will sign off; please call with any questions, concerns SIGNATURE: LYNN Ordonez APRN PATIENT NAME: Mark Serrano DATE: July 13, 2018 TIME: 7:17 AM CONTACT: see below Emergency General Surgery Service Pager: For questions or concerns Mon-Fri 6a-5p please page [phone]. After 5pm and on Weekends and Holidays, please page [phone]. HEMOGRAM Collected: 07/13/2018 Status: F Source: [facility] 4:42 AM HEALTH SYSTEM REPOSITORY TYPE CODE TESTS RESULT OUT OF REFERENCE UNITS RANGE LAB WBC(LOINC) 4.23-9.07 thou/cmm Low WBC 4.06 LAB RBC(LOINC) 4.63-6.08 mil/cmm Low RBC 3.77 LAB HGB(LOINC) 13.7-17.5 g/dL Low Hgb 11.0 LAB HCT(LOINC) 40.1-51.0 % Low Hct 34.6 LAB MCV(LOINC) 83.2-95.6 fl MCV 91.8 LAB MCH(LOINC) 25.7-32.2 pg MCH 29.2 LAB MCHC(LOINC) 32.3-36.5 % Low MCHC 31.8 LAB RDW(LOINC) 11.6-14.4 % RDW 13.2 LAB RDWSD(LOINC 36.1-45.8 fl ) RDW SD 44.5 LAB PLT(LOINC) 141-365 thou/cmm Low Platelet 110 LAB MPV(LOINC) 8.7-12.0 fl MPV 11.2 Performed By: #### CBC1 #### [place] [id number] NURSING PROG Observed: 07/13/2018 Status: COMPLETED Source: [facility] 4:00 AM CLINIC OTHER CAMPUS REPOSITORY O ID: [id number] Author: Nayeli (Rn) NORMA Walls Service: Nursing Author Type: Registered Nurse Type: Nursing Progress Note Filed: 07/13/2018 4:10 AM Note Text: Nursing Progress Note Patient Name: Mark Serrano Patient Location: [place] [address] [address]* Patient refusing to have home inhaler put in the lock box. Patient stated he has been using his home inhaler every hour. Patient was educated on the effects of using his home inhaler too often and how it could make him feel worse due to also getting Breo Ellipta daily and Duoneb treatments PRN q4h. This note was completed by: Nayeli Walls, RN MDRD GFR Collected: 07/13/2018 Status: F Source: [facility] 2:30 AM HEALTH SYSTEM REPOSITORY TYPE CODE TESTS RESULT OUT OF RANGE REFERENCE UNITS LAB GFRFN(LOINC >60mL/min/1.73m ) 2 eGFR 49.68 Result Comment: If the patient is , multiply the result by 1.210. Performed By: #### GFR #### [place] [id number] BASIC PANEL Collected: 07/13/2018 Status: F Source: [facility] 2:30 AM HEALTH SYSTEM REPOSITORY TYPE CODE TESTS RESULT OUT OF REFERENCE UNITS RANGE LAB NA(LOINC) 136-145 mEq/L Sodium Blood 138 LAB K(LOINC) 3.5-5.1 mEq/L Potassium Blood 4.9 LAB CL(LOINC) 98-107 mEq/L Chloride Blood 102 LAB CO2(LOINC) 21-32 mEq/L CO2 Blood 32 LAB GLU(LOINC) 70-99 mg/dL Glucose Blood 98 LAB BUN(LOINC) 7-18 mg/dL BUN High Blood 35 LAB CREA(LOINC 0.67-1.17 mg/dL ) High Creatinine Blood 1.41 LAB CA(LOINC) 8.5-10.1 mg/dL Low Calcium Blood 8.1 LAB ANGAP(LOIN 8-16 C) Anion Gap 9 Performed By: #### P8 #### [place] [address] MAGNESIUM BLOOD Collected: 07/13/2018 Status: F Source: [facility] 2:30 AM HEALTH SYSTEM REPOSITORY TYPE CODE TESTS RESULT OUT OF REFERENCE UNITS RANGE LAB MAG(LOINC) 1.6-2.6 mg/dL Magnesium Blood 2.2 Performed By: #### MAG #### [place] [address] PHOSPHORUS BLOOD Collected: 07/13/2018 Status: F Source: [facility] 2:30 AM HEALTH SYSTEM REPOSITORY TYPE CODE TESTS RESULT OUT OF REFERENCE UNITS RANGE LAB PHOS(LOINC 2.5-4.9 mg/dL ) Phosphorus Blood 3.3 Performed By: #### PHOS #### [place] [address] NURSING PROG Observed: 07/12/2018 Status: COMPLETED Source: [facility] 4:18 PM CLINIC OTHER CAMPUS REPOSITORY HNO ID: [id number] Author: Winnie (Rn) NORMA Jarvis Service: Nursing Author Type: Registered Nurse Type: Nursing Progress Note Filed: 07/12/2018 4:20 PM Note Text: Pt gave permission for RN to speak to Zoila Davalos. THERAPY NT Observed: 07/12/2018 Status: COMPLETED Source: [facility] 1:58 PM CLINIC OTHER CAMPUS REPOSITORY HNO ID: [id number] Author: Edith Murillo/Tin Garza Service: Occupational Therapy Author Type: Occupational Therapist Type: Therapy (PT/OT/Speech/Resp) Filed: 07/12/2018 2:03 PM Note Text: Occupational Therapy Evaluation SERVICE DATE: 07/12/2018 SERVICE TIME: 1325 to 8606 ROOM: [id number] Recommended Discharge Disposition: Home Recommended Discharge Disposition Comments: Recommend pt return to home with current level of assist. Pt appears to be at baseline for functional mobility/cognition. Anticipated Discharge Needs: Physical Assist at Home Physical Assist at Home for: Laundry;Transportation;Shopping OT Recommendations to Nursing: To Bathroom for ADL?s /and or Toileting;OOB for meals OT 6 Clicks Score: 23 Precautions/Activity Restrictions: Lines/Tubes/Drains Precaution/Activity Restriction Comments: TPN PICC line Isolation Type: None ASSESSMENT: OT Evaluation Low Complexity: Occupational Profile - Brief review of patient's medical record completed (please see current hospital course of evaluation). Occupational Performance - Pt presents with few deficits. Complexity in Clinical Decision Making - The extent of clinical reasoning was low, no need for modifications during the evaluation process, some comorbidities present to affect patient's occupational performance. Patient Disposition at Start of Session: Supine in Bed Patient Disposition at End of Session: Supine in Bed;Call Williamson in Reach Tolerated Full Session Occupational Therapy Problem List: Safety Deficits;Impaired Self Care Patient /Caregiver Goals: Go Home Goals for Plan of Care: Rehab Potential: Good PLAN: Treatment Frequency (times per week): Discontinue Therapy Services Reasons Therapy Services Discontinued: Independent in all functional mobility Current admission Treatment Interventions: Education;Self Care / Home Management Plan of Care developed with: Patient TREATMENT INTERVENTIONS: Therapy Diagnosis: Reduced mobility-other;Decreased activities of daily living (ADL) Interventions Provided: Evaluation;Therapeutic Activity (27914) $ Evaluation-Low (18625) Billed Units: 1 unit Therapeutic Activity (72541) Treatment Minutes: 8 1 unit Skilled Intervention(s): Provided opportunity for functional mobility task navigating obstacles in room with IV pole. Educated and facilitated pt safety with various transfers on commode and chair with cues for hand placement and to reach back for chair/commode, cues for feeling legs on back of chair. Provided cues for visual scanning, topographical orientation, side stepping , and moving around obstacles. Additionally provided edu on adaptive equipment to use if needed (ie. driver recruiter to pick items off ground). Edu pt on decreasing pace with unfamiliar environment. Total Timed Code Treatment Minutes: 8 Total Treatment Time (minutes): 24 FUNCTIONAL G CODE: OT 6 Clicks Score: 23 (07/12/18 1325) Self Care Current Status (G8987): CI (07/12/18 1325) Self Care Goal Status (G8988): CI (07/12/18 1325) Self Care Discharge Status (G8989): CI (07/12/18 1325) Based on clinical assessment and the score on the 6 Clicks Functional Assessment Tool, the G code and corresponding severity modifiers are documented above. SUBJECTIVE: Current Hospital Course: Chart reviewed; Mr. Serrano is a 68 year old male who presents with two days of increased abdominal pain. Patient states his pain started 2 days prior. He endorses nausea and emesis during this time (nonbloody, but dark per patient). Per patient, he has had 30-40 lbs weight loss over the past year and 10-15 lbs weight loss in the last couple of weeks. Active Hospital Problems Diagnosis - Vomiting Added automatically from request for surgery [id number] - Bowel obstruction (HCC) - SBO (small bowel obstruction) ([facility]) - Nicotine use disorder, F17.2 - Hypertension - COPD (chronic obstructive pulmonary disease) ([facility]) PAST MEDICAL HISTORY Diagnosis Date - Arthritis - COPD (chronic obstructive pulmonary disease) ([facility]) - Crohn's disease ([facility]) - Depression - Diarrhea - Emphysema - Hypertension - IBS (irritable bowel syndrome) - Unspecified essential hypertension PAST SURGICAL HISTORY Procedure Laterality Date - COLONOSCOP W/ OR W/O [facility] SPEC Colonoscopy x 4 - PAST SURGICAL HISTORY OF 2003 lower bowel surgery - PAST SURGICAL HISTORY OF dental surgery - REMOVAL OF TONSILS,<12 Y/O Tonsillectomy Reason for Occupational Therapy Consult: Progressive mobility protocol Relevant Past Medical History: Arthritis, depression, abdominal sx Patient Report: Arrived with pt supine in bed and agreeable to therapy. Per pt I think I got real sick because my friend , I couldn't eat and ended up here two days later. Pt reports friend's son and his will be living with him in apartment and can keep an eye on him. Pain: 0/10 verbal 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 Entry To Home: Stairs;With Rail Number Of Stairs Into Home: 3 Number Of Stairs To Bed/Bath: 11 Stairs to Bed/Bath with: Unilateral Rail Tub/Shower Type: Tub shower Laundry: Pt does; in basement Equipment Owned: Cane;Hospital Bed Prior Functional Level: Within Functional Limits (ambulates without AD, fixes lawn mowers, goes to auctions) OBJECTIVE: Orientation Deficits: (AOx3) Responsiveness: Alert;Awake Follows Commands: 2-step Commands Executive Function Deficits: Safety Awareness Safety Awareness Deficit: Minimal impairment CURRENT FUNCTIONAL STATUS: Current Activities of Daily Living Assist Level Feeding Set Up Grooming Set Up Bathing Upper Body Stand By Assistance Bathing Lower Body Contact Guard Assistance Dressing Upper Body Stand By Assistance Dressing Lower Body Stand By Assistance Toileting Stand By Assistance Functional Mobility Assist Level Rolling Stand By Assistance Supine to Sit Stand By Assistance Sit to Supine Stand By Assistance Scooting Stand By Assistance Sit to Stand Stand By Assistance Stand to Sit Stand By Assistance Bed to Chair Stand By Assistance Stand Pivot Gait Belt Toilet/Commode Stand By Assistance Functional Mobility Stand By Assistance IV Pole Balance: Static Sitting;Dynamic Sitting;Static Standing;Dynamic Standing Static Sitting Balance: Stand By Assistance Dynamic Sitting Balance: Stand By Assistance Static Standing Balance: Stand By Assistance Dynamic Standing Balance: Stand By Assistance Activity Tolerance: Sitting Activity Sitting Activity: EOB activity Sitting Activity Tolerance (in minutes): 8 Hand Dominance: Right Range of Motion: WFL Strength: WFL Edu pt on fall prevention / up with assistance. Pt left in room in bed and with calllight within reach. Please see discipline specific clinical documentation flowsheet for complete details for this therapy evaluation/treatment. SIGNATURE: Edith Garza OT/Anne Marie PATIENT NAME: Mark Serrano DATE: July 12, 2018 TIME: 1:58 PM CONSULT PROG Observed: 07/12/2018 Status: COMPLETED Source: [facility] 1:41 PM CLINIC OTHER CAMPUS REPOSITORY HNO ID: [id number] Author: Maryanne Castillo Service: General Surgery Author Type: Nurse Practitioner Type: Consult Progress Note Filed: 07/12/2018 1:45 PM Note Text: Continues to feel well. Minimal tenderness lower abdomen. Denies nausea, vomiting. +flatus, +BM. Gastric emptying study shows normal rate of gastric emptying of water. Okay to advance diet as tolerated from surgical standpoint. Maryanne Castillo APRN.CAR STOWER Pager: [phone] Emergency General Surgery Service Pager: For questions or concerns Mon-Fri 6a-5p please page [phone]. After 5pm and on Weekends and Holidays, please page [phone]. NUTRITION Observed: 07/12/2018 Status: COMPLETED Source: [facility] 1:33 PM [facility] OTHER [place] REPOSITORY HNO ID: [id number] Author: Maris Patrick RD Service: NST-Nutrition Support Team Author Type: Registered Dietitian Type: Nutrition Filed: 07/12/2018 1:38 PM Note Text: Attestation signed by Stefan Heller at 07/12/2018 10:16 PM Discussed with the RD and agree with RD's findings and plan as documented in the RD's note. Will cont TPN due to crohn's, wt loss and acute GI symptoms Stefan Heller MD D/w Dr Arron CARBONE started this am Feeling better possibly r/t TPN GI/GS on consult--> ? enteral support vs surgical intervention Lytes Reviewed, WT 44.1 kg TPN renewed: As is TPN script: 3.0 L/24 hrs providing 2020 calories ( 33 kcals/kg UBW 61 kg) and 70 gms pro ( 1.3 gms/kg UBW 61 kg) per day ? Maris Patrick [facility]--> [id number] PROGRESS Observed: 07/12/2018 Status: COMPLETED Source: [facility] 1:22 PM CLINIC OTHER CAMPUS REPOSITORY [facility] ID: [id number] Author: Barbara Baldwin Service: Hospital Medicine Author Type: Physician Type: Progress Notes Filed: 07/12/2018 1:35 PM Note Text: INTERNAL MEDICINE PROGRESS NOTE SERVICE DATE: 07/12/2018 SERVICE TIME: 1:22 PM ADMITTING PHYSICIAN: Dalia Santos Subjective CHIEF COMPLAINT: f/u medical issues listed below Current Facility-Administered Medications: Parenteral Nutrition - Adult INTRAVENOUS ONCE TPN (1800 START) pantoprazole 40 mg injection (PROTONIX) 40 mg INTRAVENOUS DAILY acetaminophen 650 mg suppository (TYLENOL) 650 mg RECTAL q 4 H PRN phenol 1 Ambia (CHLORASEPTIC) 1 Ambia MUCOUS MEMBRANE (TOPICAL MOUTH AND THROAT) q 2 H PRN fluticasone-vilanterol 100-25 mcg/dose 1 Inhalation (BREO ELLIPTA) 1 Inhalation INHALATION DAILY ondansetron 4 mg tab(s) (ZOFRAN) 4 mg ORAL q 4 H PRN Or ondansetron (PF) 4 mg injection (ZOFRAN) 4 mg INTRAVENOUS q 4 H PRN promethazine 12.5 mg tab(s) (PHENERGAN) 12.5 mg ORAL q 6 H PRN prochlorperazine 5 mg injection (COMPAZINE) 5 mg INTRAVENOUS q 4 H PRN heparin 5,000 Units injection 5,000 Units SUBCUTANEOUS q 12 H 0.9% NaCl 3-5 mL 3-5 mL INTRAVENOUS q 12 H morphine 1-2 mg injection 1-2 mg INTRAVENOUS q 4 H PRN ipratropium-albuterol 3 mL nebulizer solution (DUONEB) 3 mL INHALATION q 4 H PRN pantoprazole 40 mg injection (PROTONIX) 40 mg INTRAVENOUS DAILY (6 AM) 0.9% NaCl 10 mL 10 mL INTRAVENOUS q 12 H 0.9% NaCl 20 mL 20 mL INTRAVENOUS PRN INTERVAL HISTORY OF PRESENT ILLNESS: denies n/v/abd pain today Objective PHYSICAL EXAM: Patient Vitals for the past 24 hrs: BP Temp Temp src Pulse Resp SpO2 Weight 07/12/18 0705 111/74 36.8 ?C (98.2 ?F) Oral 85 16 96 % - 07/12/18 0624 - - - - 16 - - 07/12/181 - - - - 16 - - 07/11/188 - - - - 16 - 44.1 kg (97 lb 3.6 oz) 07/11/18 1847 147/98 37.3 ?C (99.1 ?F) - 91 16 91 % - Body mass index is 16.18 kg/m?. GENERAL: Alert, no distress, cooperative- SKIN: No rash- LUNGS: Lungs clear - CARDIAC: reg- ABDOMEN: Abdomen soft- EXTREMITIES: no swelling- NEURO: Alert- DATA: Diagnostic tests reviewed for today's visit: Significant findings were IMPRESSION: ? NORMAL RATE OF GASTRIC EMPTYING OF WATER. Result History NM GASTRIC EMPTYING LIQUID (Order #[id number]) on 07/12/2018 Assessment/Plan Pt denies n/v/abd pain today Normal gastric emptying of water EGD 07/11/18 1. No duodenal obstruction seen, tortuous descending duodenum, but no evidence of any obstruction. 2. Grade B esophagitis at GE junction. 3. NG tube trauma. PLAN: advance diet and monitor if ok with surgery On protonix SIGNATURE: Barbara Baldwin DO PATIENT NAME: Mark Serrano DATE: July 12, 2018 TIME: 1:22 PM PAGER/CONTACT #: CONSULT PROG Observed: 07/12/2018 Status: COMPLETED Source: [facility] 11:03 AM CLINIC OTHER CAMPUS REPOSITORY HNO ID: [id number] Author: Jovi Wilhelm Service: Gastroenterology Author Type: Nurse Practitioner Type: Consult Progress Note Filed: 07/12/2018 11:20 AM Note Text: CONSULT PROGRESS NOTE SERVICE DATE: 07/12/2018 SERVICE TIME: 11:03 AM CONSULTING SERVICE: GASTROENTEROLOGY Subjective INTERVAL HPI: Patient denied nausea and vomiting, he have minimal LLQ abdominal pain but only with touch. Current hospital medications: Parenteral Nutrition - Adult INTRAVENOUS ONCE TPN (1800 START) Parenteral Nutrition - Adult INTRAVENOUS ONCE TPN (1800 START) pantoprazole 40 mg injection (PROTONIX) 40 mg INTRAVENOUS DAILY acetaminophen 650 mg suppository (TYLENOL) 650 mg RECTAL q 4 H PRN phenol 1 Ambia (CHLORASEPTIC) 1 Ambia MUCOUS MEMBRANE (TOPICAL MOUTH AND THROAT) q 2 H PRN fluticasone-vilanterol 100-25 mcg/dose 1 Inhalation (BREO ELLIPTA) 1 Inhalation INHALATION DAILY ondansetron 4 mg tab(s) (ZOFRAN) 4 mg ORAL q 4 H PRN ondansetron (PF) 4 mg injection (ZOFRAN) 4 mg INTRAVENOUS q 4 H PRN promethazine 12.5 mg tab(s) (PHENERGAN) 12.5 mg ORAL q 6 H PRN prochlorperazine 5 mg injection (COMPAZINE) 5 mg INTRAVENOUS q 4 H PRN heparin 5,000 Units injection 5,000 Units SUBCUTANEOUS q 12 H 0.9% NaCl 3-5 mL 3-5 mL INTRAVENOUS q 12 H morphine 1-2 mg injection 1-2 mg INTRAVENOUS q 4 H PRN ipratropium-albuterol 3 mL nebulizer solution (DUONEB) 3 mL INHALATION q 4 H PRN pantoprazole 40 mg injection (PROTONIX) 40 mg INTRAVENOUS DAILY (6 AM) 0.9% NaCl 10 mL 10 mL INTRAVENOUS q 12 H 0.9% NaCl 20 mL 20 mL INTRAVENOUS PRN Objective PHYSICAL EXAM: Physical Exam Performed: GENERAL: Alert and oriented in no distress, cooperative LUNGS: Lungs clear to auscultation, even and unlabored on 3L 02 via NC CARDIAC: Normal S1 and S2; without rubs, murmurs, or gallops ABDOMEN: Abdomen soft with + BS X 4, no guarding, rebound, or distention, healed ML incision and LLQ tenderness on palpation PULSES: 2+ radial BP 111/74 Pulse 85 Temp (Src) 98.2 (Oral) Resp 16 Ht 5' 5 (1.65m) Wt 97 lb 3.6 oz (44.1kg) SpO2 96% BMI 16.18 kg/(m2). DATA: Diagnostic tests reviewed for today's visit: Ref. Range 07/12/2018 02:20 Sodium Latest Ref Range: 136 - 145 mEq/L 137 Potassium Latest Ref Range: 3.5 - 5.1 mEq/L 4.0 Chloride Latest Ref Range: 98 - 107 mEq/L 98 CO2 Latest Ref Range: 21 - 32 mEq/L 35 (H) BUN Latest Ref Range: 7 - 18 mg/dL 36 (H) Creatinine Latest Ref Range: 0.67 - 1.17 mg/dL 1.44 (H) Glucose Latest Ref Range: 70 - 99 mg/dL 130 (H) Calcium Latest Ref Range: 8.5 - 10.1 mg/dL 7.8 (L) Magnesium Latest Ref Range: 1.6 - 2.6 mg/dL 2.0 Phosphorus Latest Ref Range: 2.5 - 4.9 mg/dL 3.5 Anion Gap Latest Ref Range: 8 - 16 8 eGFR Latest Ref Range: >60mL/min/1.73m2 48.49 Ref. Range 07/08/2018 05:30 WBC Latest Ref Range: 4.23 - 9.07 thou/cmm 4.49 RBC Latest Ref Range: 4.63 - 6.08 mil/cmm 3.45 (L) HGB Latest Ref Range: 13.7 - 17.5 g/dL 10.5 (L) Hematocrit Latest Ref Range: 40.1 - 51.0 % 31.8 (L) Platelet Count Latest Ref Range: 141 - 365 thou/cmm 94 (L) MCV Latest Ref Range: 83.2 - 95.6 fl 92.2 MCH Latest Ref Range: 25.7 - 32.2 pg 30.4 Gastric emptying study liquid on 07/12/18: IMPRESSION: ? NORMAL RATE OF GASTRIC EMPTYING OF WATER. Impression/Recommendations 1). Nausea and vomiting-s/p EGD showed no duodenal obstruction, tortuous desc duodenum, esophagitis at GE jxn, NGT trauma, GES WNL Assessment AND Plan: Await pathology results 2). SBO (small bowel obstruction)-passing flatus and stools Assessment AND Plan: Defer to general surgery SIGNATURE: Jovi Wilhelm APRN.CNP PATIENT NAME: Mark Serrano DATE: July 12, 2018 TIME: 11:03 AM PAGER: NM GASTRIC EMPTYING Observed: 07/12/2018 Status: F Source: [employer] 9:21 AM HEALTH SYSTEM REPOSITORY Performed at [facility] APPROVED BY: FELICIA DOVER MD GASTRIC EMPTYING LIQUID STUDY: CLINICAL HISTORY: Gastroparesis. Vomiting. To assess for possible abnormal gastric emptying of a liquid meal. TECHNIQUE: 1 mCi Tc-99m DTPA was given orally in a meal consisting of 4 oz water. RESULT: There is satisfactory emptying of the radiotracer from the stomach with a calculated T-1/2 clearance time of 14.6 minutes (normal range 8- 25 minutes). IMPRESSION: NORMAL RATE OF GASTRIC EMPTYING OF WATER. PROGRESS Observed: 07/12/2018 Status: COMPLETED Source: [facility] 9:03 AM CLINIC OTHER CAMPUS REPOSITORY HNO ID: [id number] Author: Caro Sandy Sarmiento (Rt) Service: Nuclear Medicine Author Type: [employer] Type: Progress Notes Filed: 07/12/2018 9:05 AM Note Text: RADIOLOGY SERVICE PROGRESS NOTE SERVICE DATE: 07/12/2018 SERVICE TIME: 9:04 AM PATIENT IDENTITY VERIFICATION COMPLETED USING TWO (2) METHODS: Patient confirmed name and Date of verbally. PATIENT GENDER DATA: .male ALLERGIES: Reviewed and unchanged MEDICATIONS REVIEWED: Yes PATIENT RELEVANT IMPLANT DATA REVIEWED: Not Applicable CREATININE: Creatinine Date Value Ref Range Status 07/12/2018 1.44 (H) 0.67 - 1.17 mg/dL Final 07/11/2018 1.43 (H) 0.67 - 1.17 mg/dL Final 07/10/2018 1.29 (H) 0.67 - 1.17 mg/dL Final P.O.C.T. RESULTS: N/A July 12, [address] PERFORMED: No IV SITE: Inpatient - refer to [facility] documentation POST EXAM PIV STATUS: Not applicable PROCEDURE TYPE: NM GET: 1.0 mCi Tc99m DTPA was administered orally via 2oz H2O ADMINISTRATION TIME: 0800 PATIENT DISCHARGED TO: Patient taken to IP transport area for return to RNF/ICU/ED. A Diagnostic radioactive procedure has taken place, with no further precautions necessary other than routine body substance precautions. More information regarding radiation safety can be found using this link: [email or web address] SIGNATURE: RT Marilin PATIENT NAME: Mark Serrano DATE: July 12, 2018 TIME: 9:04 AM PAGER/CONTACT #: PROGRESS Observed: 07/12/2018 Status: COMPLETED Source: [place] 8:10 AM [facility] OTHER CAMPUS REPOSITORY HNO ID: [id number] Author: Maryanne Castillo Service: General Surgery Author Type: Nurse Practitioner Type: Progress Notes Filed: 07/12/2018 11:06 AM Note Text: Emergency General Surgery Progress Note SERVICE DATE: 07/12/2018 SUBJECTIVE: Feeling much better this morning. Reports minimal tenderness to lower abdomen. Denies nausea or vomiting. +flatus, +BM Tolerating diet Parenteral Nutrition - Adult DIET NPO Nausea No Emesis No Flatus Yes Bowel movement Yes Pain Controlled Yes Ambulating in room OBJECTIVE: Vitals: Temp (24hrs), Av.9 ?C (98.5 ?F), Min:36.8 ?C (98.2 ?F), Max:37.3 ?C (99.1 ?F) BP 111/74 Pulse 85 Temp 36.8 ?C (98.2 ?F) (Oral) Resp 16 Ht 165.1 cm (5' 5) Wt 44.1 kg (97 lb 3.6 oz) SpO2 96% BMI 16.18 kg/m? O2 Therapy: Nasal Cannula IANDO: Date 07/11/18699 - 07/12/18 0607/12/18699 - 07/13/18 0659 Shift 2960-4709 6889-9328 0721-2038 24 Hour Total 7480-6846 3456-9840 4049-1212 24 Hour Total I N T A K E IV 500 500 OR Crystalloid intake (mL) 500 500 Shift Total 500 500 O U T P U T # of BMs Number of BMs 2 x 2 x Shift Total Weight (kg) 43.2 44.1 44.1 44.1 44.1 44.1 44.1 44.1 MEDICATIONS Current Facility-Administered Medications: Parenteral Nutrition - Adult INTRAVENOUS ONCE TPN (1800 START) pantoprazole 40 mg injection (PROTONIX) 40 mg INTRAVENOUS DAILY acetaminophen 650 mg suppository (TYLENOL) 650 mg RECTAL q 4 H PRN phenol 1 Ambia (CHLORASEPTIC) 1 Ambia MUCOUS MEMBRANE (TOPICAL MOUTH AND THROAT) q 2 H PRN fluticasone-vilanterol 100-25 mcg/dose 1 Inhalation (BREO ELLIPTA) 1 Inhalation INHALATION DAILY ondansetron 4 mg tab(s) (ZOFRAN) 4 mg ORAL q 4 H PRN Or ondansetron (PF) 4 mg injection (ZOFRAN) 4 mg INTRAVENOUS q 4 H PRN promethazine 12.5 mg tab(s) (PHENERGAN) 12.5 mg ORAL q 6 H PRN prochlorperazine 5 mg injection (COMPAZINE) 5 mg INTRAVENOUS q 4 H PRN heparin 5,000 Units injection 5,000 Units SUBCUTANEOUS q 12 H 0.9% NaCl 3-5 mL 3-5 mL INTRAVENOUS q 12 H morphine 1-2 mg injection 1-2 mg INTRAVENOUS q 4 H PRN ipratropium-albuterol 3 mL nebulizer solution (DUONEB) 3 mL INHALATION q 4 H PRN pantoprazole 40 mg injection (PROTONIX) 40 mg INTRAVENOUS DAILY (6 AM) 0.9% NaCl 10 mL 10 mL INTRAVENOUS q 12 H 0.9% NaCl 20 mL 20 mL INTRAVENOUS PRN Labs: Recent Labs 07/12/18 0220 07/11/18 0254 NA 137 142 K 4.0 3.9 CHLOR 98 95* CO2 35* 40* BUN 36* 36* CREAT 1.44* 1.43* GLUC 130* 127* ANION 8 11 CA 7.8* 8.9 MG 2.0 2.2 P 3.5 3.6 Exam: GENERAL: No distress, Alert NEURO: AANDOx3, CN II-XII grossly intact HEENT: normocephalic, atraumatic LUNGS: Unlabored breathing using O2 per NC CARDIAC: Regular rate and rhythm as above ABDOMEN: Soft, minimal tenderness lower abdomen, non-distended. NG tube removed yesterday EXTREMITIES: ALBERTS, No deformities, No edema, PPP SKIN: Skin color, texture, turgor normal ? 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 Willams SIGNATURE: Maryanne Castillo APRN.CNP PATIENT NAME: Mark Serrano DATE: July 12, 2018 TIME: 8:17 AM CONTACT: see below Emergency General Surgery Service Pager: For questions or concerns Mon-Wed 6a-5p please page [phone]. After 5pm and on Weekends and Holidays, please page [phone]. BASIC PANEL Collected: 07/12/2018 Status: F Source: [facility] 2:20 AM HEALTH SYSTEM REPOSITORY TYPE CODE TESTS RESULT OUT OF REFERENCE UNITS RANGE LAB NA(LOINC) 136-145 mEq/L Sodium Blood 137 LAB K(LOINC) 3.5-5.1 mEq/L Potassium Blood 4.0 LAB CL(LOINC) 98-107 mEq/L Chloride Blood 98 LAB CO2(LOINC) 21-32 mEq/L CO2 High Blood 35 LAB GLU(LOINC) 70-99 mg/dL Glucose High Blood 130 LAB BUN(LOINC) 7-18 mg/dL BUN High Blood 36 LAB CREA(LOINC 0.67-1.17 mg/dL ) High Creatinine Blood 1.44 LAB CA(LOINC) 8.5-10.1 mg/dL Low Calcium Blood 7.8 LAB ANGAP(LOIN 8-16 C) Anion Gap 8 Performed By: #### P8 #### [place] [address] MAGNESIUM BLOOD Collected: 07/12/2018 Status: F Source: [facility] 2:20 AM HEALTH SYSTEM REPOSITORY TYPE CODE TESTS RESULT OUT OF REFERENCE UNITS RANGE LAB MAG(LOINC) 1.6-2.6 mg/dL Magnesium Blood 2.0 Performed By: #### MAG #### [place] [address] PHOSPHORUS BLOOD Collected: 07/12/2018 Status: F Source: [facility] 2:20 AM HEALTH SYSTEM REPOSITORY TYPE CODE TESTS RESULT OUT OF REFERENCE UNITS RANGE LAB PHOS(LOINC 2.5-4.9 mg/dL ) Phosphorus Blood 3.5 Performed By: #### PHOS #### [place] [address] PROGRESS Observed: 07/11/2018 Status: COMPLETED Source: [place] 7:47 PM [facility] OTHER CAMPUS REPOSITORY O ID: [id number] Author: Barbara Baldwin Service: Hospital Medicine Author Type: Physician Type: Progress Notes Filed: 07/12/2018 12:28 AM Note Text: INTERNAL MEDICINE PROGRESS NOTE SERVICE DATE: 07/11/2018 SERVICE TIME: 7:49 PM ADMITTING PHYSICIAN: Dalia Santos Subjective CHIEF COMPLAINT: f/u medical issues listed below Current Facility-Administered Medications: Parenteral Nutrition - Adult INTRAVENOUS ONCE TPN (1800 START) pantoprazole 40 mg injection (PROTONIX) 40 mg INTRAVENOUS DAILY acetaminophen 650 mg suppository (TYLENOL) 650 mg RECTAL q 4 H PRN phenol 1 Ambia (CHLORASEPTIC) 1 Ambia MUCOUS MEMBRANE (TOPICAL MOUTH AND THROAT) q 2 H PRN fluticasone-vilanterol 100-25 mcg/dose 1 Inhalation (BREO ELLIPTA) 1 Inhalation INHALATION DAILY ondansetron 4 mg tab(s) (ZOFRAN) 4 mg ORAL q 4 H PRN Or ondansetron (PF) 4 mg injection (ZOFRAN) 4 mg INTRAVENOUS q 4 H PRN promethazine 12.5 mg tab(s) (PHENERGAN) 12.5 mg ORAL q 6 H PRN prochlorperazine 5 mg injection (COMPAZINE) 5 mg INTRAVENOUS q 4 H PRN heparin 5,000 Units injection 5,000 Units SUBCUTANEOUS q 12 H 0.9% NaCl 3-5 mL 3-5 mL INTRAVENOUS q 12 H morphine 1-2 mg injection 1-2 mg INTRAVENOUS q 4 H PRN ipratropium-albuterol 3 mL nebulizer solution (DUONEB) 3 mL INHALATION q 4 H PRN pantoprazole 40 mg injection (PROTONIX) 40 mg INTRAVENOUS DAILY (6 AM) 0.9% NaCl 10 mL 10 mL INTRAVENOUS q 12 H 0.9% NaCl 20 mL 20 mL INTRAVENOUS PRN INTERVAL HISTORY OF PRESENT ILLNESS: 4 bm today (always has diarrhea chronic). No abd pain Objective PHYSICAL EXAM: Patient Vitals for the past 24 hrs: BP Temp Temp src Pulse Resp SpO2 Height Weight 07/11/188 - - - - 16 - - 44.1 kg (97 lb 3.6 oz) 07/11/18 1847 147/98 37.3 ?C (99.1 ?F) - 91 16 91 % - - 07/11/18 1102 111/68 - - 86 16 95 % - - 07/11/18 0911 157/76 - - 84 16 95 % 165.1 cm (5' 5) 43.2 kg (95 lb 3.8 oz) 07/11/18 0901 150/85 36.8 ?C (98.3 ?F) Oral 84 16 100 % 165.1 cm (5' 5) 43.2 kg (95 lb 3.8 oz) 07/11/18 0715 141/90 37.2 ?C (99 ?F) Oral 91 16 99 % - - 07/11/18 0611 - - - - 16 - - - 07/11/18 0300 - - - - 16 - - - 07/11/18 0015 - - - - 16 - - - 07/10/18 2308 - - - - - - - 43.2 kg (95 lb 3.8 oz) Body mass index is 16.18 kg/m?. GENERAL: Alert, no distress, cooperative LUNGS: Lungs clear . CARDIAC: Normal S1 and S2; no rubs, murmurs, or gallops ABDOMEN: Abdomen soft EXTREMITIES: no swelling DATA: Diagnostic tests reviewed for today's visit: Significant findings were revd Assessment/Plan ? SMA sydrome EGD 07/11/18. Findings noted surg following SIGNATURE: Barbara Baldwin DO PATIENT NAME: Mark Serrano DATE: July 11, 2018 TIME: 7:49 PM PAGER/CONTACT #: THERAPY NT Observed: 07/11/2018 Status: COMPLETED Source: [place] 2:19 PM [facility] OTHER CAMPUS REPOSITORY HNO ID: [id number] Author: Balbir (Pt) Young Service: Physical Therapy Author Type: Physical Therapist Type: Therapy (PT/OT/Speech/Resp) Filed: 07/11/2018 2:26 PM Note Text: Physical Therapy Evaluation SERVICE DATE: 07/11/2018 SERVICE TIME: 1335 to 1402 ROOM: [place] [id number] ([facility]) Recommended Discharge Disposition: Home Recommended Discharge Disposition Comments: Expected to be safe for discharge to home from a mobility perspective when medically stable. PAtient near baseline for mobility. Recommended Discharge Equipment: No equipment needs anticipated PT Recommendations to Nursing: Ambulate without device;To bathroom;In halls;OOB for Meals;With assist of 1 person Device: No Device PT 6 Clicks Score: 22 Precautions/Activity Restrictions: Lines/Tubes/Drains Precaution/Activity Restriction Comments: TPN PICC line Isolation Type: None ASSESSMENT : Patient presents with the following personal factors and comorbidties that impact current function and ability to progress through a plan of care including: COPD, limited assistance at home. Upon examination of body systems physical therapy will be addressing the following systems and elements: neuromuscular, musculoskeletal. Lastly the patient's clinical presentation is stable requiring a low complexity in clinical decision making for the physical therapy evaluation. Near baseline for mobility. Expected to be safe for discharge to home when medically stable without further need for skilled PT. Patient Disposition at Start of Session: Supine in Bed;Call Williamson in Reach Patient Disposition at End of Session: OOB in Chair;Call Williamson in Reach Tolerated Full Session (with seated rest break) Physical Therapy Problem List: Education Deficit;Safety Deficits;Decreased Activity Tolerance;Functional Mobility Impairment;Balance Impaired Patient /Caregiver Goals: Go Home Goals for Plan of Care: Transfer sit to/from stand with: (x5 <= 12 seconds) Ambulate with: Stand By Assistance Distance: 250 Device: No Device;Cane Ambulate up and down steps with: Stand By Assistance Number of steps: 12 Device: Rail Rehab Potential: Good PLAN: Treatment Frequency (times per week): 5 (2-5) Current admission Treatment Interventions: Education;Self Care / Home Management;Energy Conservation Training;Strengthening;Functional Mobility Training;Balance Training;Neuromuscular Re-education Plan of Care developed with: Patient TREATMENT INTERVENTIONS: Therapy Diagnosis: Reduced mobility-other;Unsteadiness on feet Interventions Provided: Evaluation;Therapeutic Activity (87688) $ Evaluation-Low (41076) Billed Units: 1 unit Therapeutic Activity (85535) Treatment Minutes: 10 1 unit Skilled Intervention(s): Instructed patient in supine to sit pushing with upper extremities to sit up. Instruction in sit to and from stand technique with proper hand placement and body positioning at edge of bed/chair. Education with role of PT in hospital, physiological benefits of upright sitting in chair vs bed, mobility safety and considerations for use of an assistive device to decrease risk of falls, energy conservation. Total Timed Code Treatment Minutes: 10 Total Treatment Time (minutes): 25 FUNCTIONAL G CODE: PT 6 Clicks Score: 22 (07/11/181334) Mobility: Walking and Moving Around Current Status (G8978): CJ (07/11/181334) Mobility: Walking and Moving Around Goal Status (G8979): CI (07/11/181334) Based on clinical assessment and the score on the 6 Clicks Functional Assessment Tool, the G code and corresponding severity modifiers are documented above. SUBJECTIVE: Current Hospital Course: Chart reviewed; presented with complaints of abdominal pain. Pt starting having 10/10 abdominal pain, nausea, and vomiting, last BM was 2 days prior. He reports diarrhea but this is his baseline. Reports history of SBO x 2, bowel resection in 2005. CT abd reveals distended stomach and proximal duodenum. TPN PICC line right arm. 07/11: EGD +/- Dilatation and Biopsy 1. No duodenal obstruction seen. Tortuous desc duodenum 2. Esophagitis at GE jxn 3. NGT trauma Reason for Physical Therapy Consult : safety assessment Relevant Past Medical History: COPD, diarrhea chroninc, Crohn's Active Hospital Problems Diagnosis - Vomiting Added automatically from request for surgery [id number] - Bowel obstruction (HCC) - SBO (small bowel obstruction) (HCC) - Nicotine use disorder, F17.2 - Hypertension - COPD (chronic obstructive pulmonary disease) (HCC) PAST MEDICAL HISTORY Diagnosis Date - Arthritis - COPD (chronic obstructive pulmonary disease) (HCC) - Crohn's disease (HCC) - Depression - Diarrhea - Emphysema - Hypertension - IBS (irritable bowel syndrome) - Unspecified essential hypertension PAST SURGICAL HISTORY Procedure Laterality Date - COLONOSCOP W/ OR W/O [facility] SPEC Colonoscopy x 4 - PAST SURGICAL HISTORY OF 2003 lower bowel surgery - PAST SURGICAL HISTORY OF dental surgery - REMOVAL OF TONSILS,<10 Y/O Tonsillectomy Patient Report: Identification verified x2, patient agreeable to therapy. Works in [employer], not a business, just something we do. Long time roommate recently, now former roommate's son lives with patient. 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) OBJECTIVE: Range of Motion: WFL Except;ROM Limitation Comments ROM Limitation Comments: kyphotic spine Strength: WFL CURRENT FUNCTIONAL STATUS: Current Functional Mobility Assist Level Additional Information Rolling Supine to Sit Stand By Assistance Sit to Supine Scooting Sit to Stand Stand By Assistance Stand to Sit Stand By Assistance Bed to Chair Toilet/Commode Gait Contact Guard Assistance Gait Device: None Gait Distance (feet): 90 x2 Stairs Curb Step Car Transfer General Gait Deviations: Step length decreased;Flexed trunk posture (Decreased foot clearance and gait speed) Balance: Dynamic Standing Dynamic Standing Balance: Stand By Assistance Activity Tolerance: Standing Activity Standing Activity: static + ambulation Standing Activity Tolerance (in minutes): 4 (dyspneic) Please see discipline specific clinical documentation flowsheet for complete details for this therapy evaluation/treatment. SIGNATURE: Balbir Vidal PT PATIENT NAME: Mark Serrano DATE: July 11, 2018 TIME: 2:19 PM ANES POST Observed: 07/11/2018 Status: COMPLETED Source: [place] 12:24 PM [facility]INIC OTHER CAMPUS REPOSITORY HNO ID: [id number] Author: Jose Juan Martinez MD Service: Anesthesiology Author Type: Physician Type: Anesthesia PostOp Filed: 07/11/2018 12:24 PM Note Text: POST ANESTHESIA EVALUATION NOTE SERVICE DATE: 07/11/2018 SERVICE TIME: 12:24 PM : 1950 Vitals: 07/10/18 0720 07/10/18 1900 07/11/18 0715 07/11/18 0901 Temp: 37 ?C (98.6 ?F) 37.4 ?C (99.3 ?F) 37.2 ?C (99 ?F) 36.8 ?C (98.3 ?F) 07/11/18 0715 07/11/18 0901 07/11/18 0911 07/11/18 1102 BP: 141/90 150/85 157/76 111/68 07/11/18 0715 07/11/18 0901 07/11/18 0911 07/11/18 1102 Pulse: 91 84 84 86 07/11/18 0715 07/11/18 0901 07/11/18 0911 07/11/18 1102 Resp: 16 16 16 16 07/11/18 0715 07/11/18 0901 07/11/18 0911 07/11/18 1102 SpO2: 99% 100% 95% 95% Validated Vital Signs: Yes POST ANES STATUS: No apparent anesthetic complications. The patient is appropriately hydrated with stable respiratory and cardiovascular status. Patient has safe and adequate airway control. The patient has appropriate pain relief and no significant post operative nausea or vomiting. The patient has achieved baseline mental status. Intra-Operative Events: No Significant Anesthesia Events Further assessment by Anesthesia Service: None Other Remarks: SIGNATURE: Jose Juan Martinez MD PATIENT NAME: Mark Serrano DATE: July 11, 2018 TIME: 12:24 PM PAGER/CONTACT #: [phone] NUTRITION Observed: 07/11/2018 Status: COMPLETED Source: [place] 12:03 PM [facility] OTHER CAMPUS REPOSITORY HNO ID: [id number] Author: Maris Patrick RD Service: NST-Nutrition Support Team Author Type: Registered Dietitian Type: Nutrition Filed: 07/11/2018 12:36 PM Note Text: Attestation signed by Stefan Heller at 07/11/2018 3:31 PM Discussed with the RD and agree with RD's findings and plan as documented in the RD's note. Will cont TPN due to crohn's, wt loss and acute GI symptoms Stefan Heller MD NUTRITION SUPPORT TEAM TOPIC: NUTRITION SUPPORT TEAM PROGRESS NOTE PATIENT NAME: Mark Serrano DATE OF : 1950 DATE: 07/11/2018 Nutritional Status: SEVERE PROTEIN-CALORIE MALNUTRITION ? In the context of Chronic Illness or Injury based on: Unintentional Weight Loss: >20% in 12 months Insufficient Energy Intake: Less than 75% energy intake compared to estimated needs for greater than or equal to 1 month Subcutaneous Fat Loss: Severe Loss Muscle Loss Severe Loss ? NUTRITION CARE PLAN: ? 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 Intervention: Start NST for PN evaluation?-->???07/07/18 for TPN support Interval History: LOS D 4, tolerating TPN, s/p EGD w/ Dilation and bx, remains NPO/NGT, no pain, + bm Assessment: 68 year old male with a PMHx COPD, Crohn's, Depression, HTN that presents with complaints of abdominal pain. Pt starting having 10/10 abdominal pain, nausea, and vomiting that started yesterday at 1pm. ?Pt's last BM was 2 days ago. ?He reports diarrhea but this is his baseline. Reports history of SBO x 2, bowel resection in 2005. ?Denies fever, chills, recent illness, CP, SOB, cough, dysuria, hematuria, blood in stools. ? ? CT abd reveals distended stomach and proximal duodenum obstruction , r/o SMA syndrome 07/07 s/p PICC, GI s/o 07/08 no surgeries plan at present, GS suggested EGD, or feeding tube 07/11 EGD--> 1. No duodenal obstruction seen. Tortuous desc duodenum 2. Esophagitis at GE jxn 3. NGT trauma ? Tmax: 37.4 WBC: 4.49--> 07/08 Edema: none noted Lines: single lumen RT arm PICC placed 07/07-> WNL Lytes: reviewed CRP: 0.31 TRIG :327 PAB: 13.6 UOP: inc WT: 43.8 kg ? Recommendations: TPN renewed: decreased NACL, calcium, increased calories TPN script: 3.0 L/24 hrs providing 2020 calories ( 33 kcals/kg UBW 61 kg) and 70 gms pro ( 1.3 gms/kg UBW 61 kg) per day Collaborated with Dr Heller and orders written. Vitals: Temperature Max in 24 hours: Temp (24hrs), Av.2 ?C (98.9 ?F), Min:36.8 ?C (98.3 ?F), Max:37.4 ?C (99.3 ?F) Current Vital Signs: BP 111/68 Pulse 86 Temp 36.8 ?C (98.3 ?F) (Oral) Resp 16 Ht 165.1 cm (5' 5) Wt 43.2 kg (95 lb 3.8 oz) SpO2 95% BMI 15.85 kg/m? Current Weight: Weight: 43.2 kg (95 lb 3.8 oz) Intake AND Output: Intake/Output Summary (Last 24 hours) at 07/11/18 1226 Last data filed at 07/11/18 1105 Gross per 24 hour Intake 500 ml Output 1250 ml Net -750 ml Laboratory Data: Recent Labs 07/11/18 0254 07/10/18 0247 07/09/18 0336 NA 142 139 141 K 3.9 3.2* 3.2* CHLOR 95* 94* 98 CO2 40* 37* 37* CREAT 1.43* 1.29* 1.42* BUN 36* 30* 28* GLUC 127* 137* 112* P 3.6 3.2 3.5 MG 2.2 2.0 1.8 CA 8.9 9.0 8.1* Recent Labs 07/11/18 0254 PREALB 13.6* Maris Patrick, JUAN MANUEL, LD, [facility] Pager: [phone] Increments: 3 NURSING PROG Observed: 07/11/2018 Status: COMPLETED Source: [place] 11:16 AM [facility] REPOSITORY HNO ID: [id number] Author: Felicitas (Rn) Kody RN Service: Nursing Author Type: Registered Nurse Type: Nursing Progress Note Filed: 07/11/2018 11:17 AM Note Text: Dr. Sanders by to see patient at bedside, patient states he is passing gas PT ED Observed: 07/11/2018 Status: COMPLETED Source: [place] 11:06 AM [facility] REPOSITORY HNO ID: [id number] Author: Felicitas CortezRn) Kody, RN Service: Nursing Author Type: Registered Nurse Type: Patient Education Filed: 07/11/2018 11:06 AM Note Text: POST OP LEARNING RESPONSE INSTRUCTION PROVIDED TO: Patient METHOD OF INSTRUCTION: Individual instruction PATIENT / FAMILY RESPONSE: Information received as demonstrated by interest and questions FOLLOW-UP PLAN: Patient instructed to call with any further issues SUPPLEMENTAL MATERIAL: None REFERRAL (RECOMMENDATION): None Electronically Signed By: Felicitas Gates RN In Department: [facility] BRIEF OP NOT Observed: 07/11/2018 Status: COMPLETED Source: [place] 11:03 AM [facility] REPOSITORY HNO ID: [id number] Author: Geovanny Sanders Service: Gastroenterology Author Type: Physician Type: Brief Op Note Filed: 07/11/2018 11:06 AM Note Text: BRIEF OPERATIVE / PROCEDURE NOTE LOG ID: [id number] SURGERY/PROCEDURE DATE: 07/11/2018 INCISION/PROCEDURE START TIME: 10:33 AM INCISION CLOSE/PROCEDURE END TIME: 10:51 AM SURGEON(S)/PROCEDURALIST(S) AND CHILDREN'S TUTOR NURSERY(S): Surgeon(s) and Role: * Geovanny Sanders - Primary No Additional Staff PROCEDURE(S): EGD +/- Dilatation and Biopsy ANESTHESIA: Monitored Anesthesia Care FINDINGS: 1. No duodenal obstruction seen. Tortuous desc duodenum 2. Esophagitis at GE jxn 3. NGT trauma ESTIMATED BLOOD LOSS: Minimal SPECIMENS: Gastric bx's COMPLICATIONS: None PRE-OP/PRE-PROCEDURE DIAGNOSIS: 1. N/v 3. Poss duodenal obstruction/SMA syndrome POST-OP/POST-PROCEDURE DIAGNOSIS: As above SIGNATURE: Geovanny Sanders MD PATIENT NAME: Mark Serrano DATE: July 11, 2018 TIME: 11:03 AM PAGER/CONTACT #: PT ED Observed: 07/11/2018 Status: COMPLETED Source: [place] 9:09 AM [facility] REPOSITORY HNO ID: [id number] Author: Felicitas (Vashti Gates RN Service: Nursing Author Type: Registered Nurse Type: Patient Education Filed: 07/11/2018 9:10 AM Note Text: PRE OP LEARNING ASSESSMENT PROCEDURE/SURGERY: GI PROCEDURES: EGD READINESS TO LEARN COGNITIVE ABILITY: Alert and oriented MOTIVATION TO LEARN: Eager FAMILY SUPPORT: None - Unavailable/disinterested PATIENT LEARNS BEST BY: Individual Instruction FACTORS AFFECTING LEARNING: None PHYSICAL LIMITATIONS AFFECTING LEARNING: None Electronically Signed By: Felicitas Gates RN In Department: [facility] PREOP Observed: 07/11/2018 Status: COMPLETED Source: [place] 9:03 AM [facility] REPOSITORY HNO ID: [id number] Author: Jose Juan Martinez MD Service: Anesthesiology Author Type: Physician Type: Anesthesia PreOp Filed: 07/11/2018 9:04 AM Note Text: ANESTHESIOLOGY DAY OF SURGERY NOTE SERVICE DATE: 07/11/2018 SERVICE TIME: 9:03 AM : 1950 Procedure(s) (LRB): EGD WITH BIOPSY (Left) Surgeon(s): Geovanny Sanders Estimated body mass index is 15.85 kg/m? as calculated from the following: Height as of this encounter: 165.1 cm (5' 5). Weight as of this encounter: 43.2 kg (95 lb 3.8 oz). Most recent hematocrit and potassium results: Hematocrit 31.8 07/08/2018 Potassium 3.9 07/11/2018 ANES DOS/PREOP NOTE: Vitals: 07/11/18 0015 07/11/18 0300 07/11/18 0611 07/11/18 0715 BP: 141/90 Pulse: 91 Resp: 16 Temp: 37.2 ?C (99 ?F) TempSrc: Oral SpO2: 99% Weight: Height: ACTIVE PROBLEM LIST Unspecified Essential Hypertension Arthritis Emphysema Ibs (Irritable Bowel Syndrome) Diarrhea Crohn's Disease (Hcc) Hypertension Copd (Chronic Obstructive Pulmonary Disease) (Hcc) Bowel Obstruction (Hcc) Sbo (Small Bowel Obstruction) (Hcc) Nicotine use disorder, F17.2 Vomiting PAST MEDICAL HISTORY Diagnosis Date - Arthritis - COPD (chronic obstructive pulmonary disease) (HCC) - Crohn's disease (HCC) - Depression - Diarrhea - Emphysema - Hypertension - IBS (irritable bowel syndrome) - Unspecified essential hypertension PAST SURGICAL HISTORY Procedure Laterality Date - COLONOSCOP W/ OR W/O [facility] SPEC Colonoscopy x 4 - PAST SURGICAL HISTORY OF 2003 lower bowel surgery - PAST SURGICAL HISTORY OF dental surgery - REMOVAL OF TONSILS,<12 Y/O Tonsillectomy FAMILY HISTORY Problem Relation Age of Onset - other (black lung) Father - other (lung disease) Brother - other (polio) Sister - other (hip problems) Daughter defects Social History: Social History Substance Use Topics - Smoking status: Former Smoker - Smokeless tobacco: Never Used - Alcohol use No No current facility-administered medications on file prior to encounter. Current Outpatient Prescriptions on File Prior to Encounter: albuterol HFA (VENTOLIN HFA) 90 mcg/actuation inhaler Inhale 2 Puffs as instructed as directed. ciprofloxacin 250 mg tablet Take 250 mg by mouth twice daily. acetaminophen-HYDROcodone (VICODIN) 5-500 mg tablet Take 1 tablet by mouth every 6 hours as needed. predniSONE 20 mg tablet Take 20 mg by mouth twice daily. metroNIDAZOLE (FLAGYL) 500 mg tablet Take 500 mg by mouth three times daily. Current Facility-Administered Medications: [MAR Hold due to Transfer] Parenteral Nutrition - Adult INTRAVENOUS ONCE TPN (1800 START) H Palmer Heller [MAR Hold due to Transfer] Parenteral Nutrition - Adult INTRAVENOUS ONCE TPN (1800 START) H Palmer Heller Last Rate: 125 mL/hr at 07/10/181920 [MAR Hold due to Transfer] iv contrast (radiology procedure) INTRAVENOUS DIRECTED PRN Mojgan Ring (Salon Shampoo Assistant) Yuan [MAR Hold due to Transfer] acetaminophen 650 mg suppository (TYLENOL) 650 mg RECTAL q 4 H PRN Barbara Baldwin [MAR Hold due to Transfer] phenol 1 Ambia (CHLORASEPTIC) 1 Ambia MUCOUS MEMBRANE (TOPICAL MOUTH AND THROAT) q 2 H PRN Uday Valluri 1 Ambia at 07/09/18 0851 [MAR Hold due to Transfer] fluticasone-vilanterol 100-25 mcg/dose 1 Inhalation (BREO ELLIPTA) 1 Inhalation INHALATION DAILY Uday Valluri 1 Inhalation at 07/11/18 0832 [MAR Hold due to Transfer] ondansetron 4 mg tab(s) (ZOFRAN) 4 mg ORAL q 4 H PRN Uday Valluri Or [MAR Hold due to Transfer] ondansetron (PF) 4 mg injection (ZOFRAN) 4 mg INTRAVENOUS q 4 H PRN Uday Valluri [MAR Hold due to Transfer] promethazine 12.5 mg tab(s) (PHENERGAN) 12.5 mg ORAL q 6 H PRN Uday Valluri [MAR Hold due to Transfer] prochlorperazine 5 mg injection (COMPAZINE) 5 mg INTRAVENOUS q 4 H PRN Geovanny (Res) MD Tasha 5 mg at 07/08/181822 [MAR Hold due to Transfer] heparin 5,000 Units injection 5,000 Units SUBCUTANEOUS q 12 H Priti (Vianney) GOKUL Mead.CAR STOWER 5,000 Units at 09/16/18 1920 [MAR Hold due to Transfer] 0.9% NaCl 3-5 mL 3-5 mL INTRAVENOUS q 12 H Priti (Vianney) APRN. MarkCAR STOWER 3 mL at 07/07/18 0037 [MAR Hold due to Transfer] morphine 1-2 mg injection 1-2 mg INTRAVENOUS q 4 H PRN Priti (Peanut Cleaner) APRN. MarkCAR STOWER 1 mg at 07/07/18 0037 [MAR Hold due to Transfer] ipratropium-albuterol 3 mL nebulizer solution (DUONEB) 3 mL INHALATION q 4 H PRN Priti (Peanut Cleaner) APRN. MarkCAR STOWER 3 mL at 07/08/18 1556 [MAR Hold due to Transfer] pantoprazole 40 mg injection (PROTONIX) 40 mg INTRAVENOUS DAILY (6 AM) Gerson Hurd) [place] 40 mg at 07/11/18 0511 [MAR Hold due to Transfer] 0.9% NaCl 10 mL 10 mL INTRAVENOUS q 12 H H Palmer Awender 10 mL at 07/11/18 0832 [MAR Hold due to Transfer] 0.9% NaCl 20 mL 20 mL INTRAVENOUS PRN H Palmer Awender Allergies: ALLERGIES Allergen Reactions - Penicillin Mental Status Change DOS EXAM: Adequate NPO status: Yes Anesthetic risks, benefits, alternatives, personnel and consent discussed: Yes Patient agrees to proceed: Yes Previous Anesthesia: No history of adverse event. Airway Assessment: MP 2; Neck ROM: Full ROM without neurologic symptoms; Airway Evaluation: No significant abnormalities Symptoms of Sleep Apnea: None Dentition: Edentulous Additional Physical Exam: Lungs: Patient health status unchanged since recent history and physical. See history and physical for exam findings. Cardiac: Patient health status unchanged since recent history and physical. See history and physical for exam findings. Additional Pertinent Findings: N/A Blood Products: Not anticipated for this procedure. Anesthetic Plan: MAC with Sedation Pain Management Plan: Parenteral or Oral ASA Class: 3 Other Medical Problems: None Chronic Beta Killian medication administered within 24 hours: N/A I have interviewed and examined the patient. I have reviewed the medical record and/or the pre-anesthesia evaluation, pertinent labs, and test results. Significant changes in the patient's condition since the History and Physical, not otherwise documented in primary service progress notes: No This contains updated information obtained within 48 hours of Surgery/Procedure. SIGNATURE: Jose Juan Martinez MD PATIENT NAME: Mark Serrano DATE: July 11, 2018 TIME: 9:03 AM CSN: [id number] CASE MANAGEM Observed: 07/11/2018 Status: COMPLETED Source: [place] 8:44 AM [facility] REPOSITORY HNO ID: [id number] Author: Lalita Ferris) NORMA Ritter Service: Care Management Author Type: Registered Nurse Type: Care Mgt Progress Note Filed: 07/11/2018 8:46 AM Note Text: CARE MANAGEMENT PROGRESS NOTE SERVICE DATE: 07/11/2018 SERVICE TIME: 8:44 AM LOS: 4 days Needs Prior to Discharge: To Be Determined;Home Care Order;OT/PT Evaluation Chart reviewed. GI and general surgery following. EGD this morning. Continues On TPN at this time. await EGD findings and PT/OT eval for DC planning SIGNATURE: Lalita Ritter RN PATIENT NAME: Mark Serrano DATE: July 11, 2018 TIME: 8:44 AM PAGER/CONTACT #: [phone] PROGRESS Observed: 07/11/2018 Status: COMPLETED Source: [place] 6:55 AM [facility] REPOSITORY HNO ID: [id number] Author: Maryanne Castillo Service: General Surgery Author Type: Nurse Practitioner Type: Progress Notes Filed: 07/11/2018 10:49 AM Note Text: Emergency General Surgery Progress Note SERVICE DATE: 07/11/2018 SUBJECTIVE: Reports continued mild nausea and abdominal discomfort in lower abdomen Tolerating diet DIET NPO Parenteral Nutrition - Adult Parenteral Nutrition - Adult Nausea Yes Emesis No Flatus NO Bowel movement No Pain Controlled Yes Ambulating in room OBJECTIVE: Vitals: Temp (24hrs), Av.2 ?C (98.9 ?F), Min:36.8 ?C (98.3 ?F), Max:37.4 ?C (99.3 ?F) BP 157/76 Pulse 84 Temp 36.8 ?C (98.3 ?F) (Oral) Resp 16 Ht 165.1 cm (5' 5) Wt 43.2 kg (95 lb 3.8 oz) SpO2 95% BMI 15.85 kg/m? O2 Therapy: Room Air IANDO: Date 07/10/18699 - 07/11/18 0607/11/18699 - 07/12/18 0659 Shift 4389-9000 8697-8366 7477-0474 24 Hour Total 5480-0998 2027-4933 5071-7123 24 Hour Total I N T A K E Shift Total O U T P U T Urine 9552 473 3897 Void (ml) 3234 941 6658 Tubes 700 700 Output (GI Feed/Drain 07/06/18 2230 Admission to Hospital Nasogastric Right Naris) 700 700 # of BMs Number of BMs 1 x 1 x Shift Total 8866 575 3373 Weight (kg) 44 44 43.2 43.2 43.2 43.2 43.2 43.2 MEDICATIONS Current Facility-Administered Medications: lactated ringers infusion 125 mL/hr INTRAVENOUS (PACU) CONTINUOUS meperidine (PF) 12.5 mg injection (DEMEROL) 12.5 mg INTRAVENOUS (PACU) PRN fentaNYL 50 mcg/mL 50 mcg injection (SUBLIMAZE) 50 mcg INTRAVENOUS (PACU) PRN ondansetron (PF) 4 mg injection (ZOFRAN) 4 mg INTRAVENOUS (PACU) PRN simethicone oral drops (GENASYME, MYLICON) X (OR/PROCEDURE) PRN [MAR Hold due to Transfer] Parenteral Nutrition - Adult INTRAVENOUS ONCE TPN (1800 START) [MAR Hold due to Transfer] acetaminophen 650 mg suppository (TYLENOL) 650 mg RECTAL q 4 H PRN [MAR Hold due to Transfer] phenol 1 Ambia (CHLORASEPTIC) 1 Ambia MUCOUS MEMBRANE (TOPICAL MOUTH AND THROAT) q 2 H PRN [MAR Hold due to Transfer] fluticasone-vilanterol 100-25 mcg/dose 1 Inhalation (BREO ELLIPTA) 1 Inhalation INHALATION DAILY [MAR Hold due to Transfer] ondansetron 4 mg tab(s) (ZOFRAN) 4 mg ORAL q 4 H PRN Or [MAR Hold due to Transfer] ondansetron (PF) 4 mg injection (ZOFRAN) 4 mg INTRAVENOUS q 4 H PRN [MAR Hold due to Transfer] promethazine 12.5 mg tab(s) (PHENERGAN) 12.5 mg ORAL q 6 H PRN [MAR Hold due to Transfer] prochlorperazine 5 mg injection (COMPAZINE) 5 mg INTRAVENOUS q 4 H PRN [MAR Hold due to Transfer] heparin 5,000 Units injection 5,000 Units SUBCUTANEOUS q 12 H [MAR Hold due to Transfer] 0.9% NaCl 3-5 mL 3-5 mL INTRAVENOUS q 12 H [DEC Hold due to Transfer] morphine 1-2 mg injection 1-2 mg INTRAVENOUS q 4 H PRN [DEC Hold due to Transfer] ipratropium-albuterol 3 mL nebulizer solution (DUONEB) 3 mL INHALATION q 4 H PRN [DEC Hold due to Transfer] pantoprazole 40 mg injection (PROTONIX) 40 mg INTRAVENOUS DAILY (6 AM) [DEC Hold due to Transfer] 0.9% NaCl 10 mL 10 mL INTRAVENOUS q 12 H [DEC Hold due to Transfer] 0.9% NaCl 20 mL 20 mL INTRAVENOUS PRN Labs: Recent Labs 07/11/18 0254 07/10/18 0247 NA 142 139 K 3.9 3.2* CHLOR 95* 94* CO2 40* 37* BUN 36* 30* CREAT 1.43* 1.29* GLUC 127* 137* ANION 11 11 CA 8.9 9.0 MG 2.2 2.0 P 3.6 3.2 Exam: GENERAL: No distress, Alert NEURO: AANDOx3, CN II-XII grossly intact HEENT: normocephalic, atraumatic LUNGS: Unlabored breathing on room air CARDIAC: Regular rate and rhythm as above ABDOMEN: Soft, lower tenderness, non-distended. NG tube to LIWS for brownish-green drainage EXTREMITIES: ALBERTS, No deformities, No edema, PPP SKIN: Skin color, texture, turgor normal ? ASSESSMENT AND PLAN: Active Hospital Problems Diagnosis Date Noted - Vomiting 07/06/2018 Overview Note: Added automatically from request for surgery [id number] - Bowel obstruction (HCC) 07/07/2018 - SBO (small bowel obstruction) ([facility]) 07/07/2018 - Nicotine use disorder, F17.2 07/07/2018 - Hypertension - COPD (chronic obstructive pulmonary disease) ([facility]) 68 year old male with SBO, significant weight loss/malnutrition, 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 Assessment and plan discussed with attending: Dr. Willams ? SIGNATURE: Maryanne Castillo APRN.CAR STOWER PATIENT NAME: Mark Serrano DATE: July 11, 2018 TIME: 10:48 AM CONTACT: see below Emergency General Surgery Service Pager: For questions or concerns Wed-Wed 6a-5p please page [phone]. After 5pm and on Weekends and Holidays, please page [phone]. BASIC PANEL Collected: 07/11/2018 Status: F Source: [facility] 2:54 AM HEALTH SYSTEM REPOSITORY TYPE CODE TESTS RESULT OUT OF REFERENCE UNITS RANGE LAB NA(LOINC) 136-145 mEq/L Sodium Blood 142 LAB K(LOINC) 3.5-5.1 mEq/L Potassium Blood 3.9 LAB CL(LOINC) 98-107 mEq/L Low Chloride Blood 95 LAB CO2(LOINC) 21-32 mEq/L CO2 High Blood 40 LAB GLU(LOINC) 70-99 mg/dL Glucose High Blood 127 LAB BUN(LOINC) 7-18 mg/dL BUN High Blood 36 LAB CREA(LOINC 0.67-1.17 mg/dL ) High Creatinine Blood 1.43 LAB CA(LOINC) 8.5-10.1 mg/dL Calcium Blood 8.9 LAB ANGAP(LOIN 8-16 C) Anion Gap 11 Performed By: #### P8 #### [place] [address] MAGNESIUM BLOOD Collected: 07/11/2018 Status: F Source: [facility] 2:54 AM HEALTH SYSTEM REPOSITORY TYPE CODE TESTS RESULT OUT OF REFERENCE UNITS RANGE LAB MAG(LOINC) 1.6-2.6 mg/dL Magnesium Blood 2.2 Performed By: #### MAG #### [place] [address] PHOSPHORUS BLOOD Collected: 07/11/2018 Status: F Source: [facility] 2:54 AM HEALTH SYSTEM REPOSITORY TYPE CODE TESTS RESULT OUT OF REFERENCE UNITS RANGE LAB PHOS(LOINC 2.5-4.9 mg/dL ) Phosphorus Blood 3.6 Performed By: #### PHOS #### [place] [address] PREALBUMIN Collected: 07/11/2018 Status: F Source: [facility] 2:54 AM HEALTH SYSTEM REPOSITORY TYPE CODE TESTS RESULT OUT OF REFERENCE UNITS RANGE LAB PAB(LOINC) 20.0-40.0 mg/dL Low Prealbumin 13.6 Performed By: #### PAB #### [facility] [address] [place] [address] OPERATIVE NO Observed: 07/11/2018 Status: COMPLETED Source: [place] 12:00 AM CLINIC OTHER CAMPUS REPOSITORY HNO ID: [id number] Author: Geovanny Sanders Service: Gastroenterology Author Type: Physician Type: Operative Report Filed: 07/11/2018 6:23 PM Note Text: [facility] - Operative Report MARK SERRANO : 1950 AGE: 68. SEX: M PATIENT TYPE: I HOSP SVC: INTM LOCATION: [facility] ATTENDING PHYSICIAN: BARBARA BALDWIN CSN NUMBER: [id number] DATE OF SURGERY/PROCEDURE: 07/11/2018 INCISION/PROCEDURE START TIME: 10:33. INCISION CLOSE/PROCEDURE END TIME: 10:51. PREOPERATIVE DIAGNOSIS: See below POSTOPERATIVE DIAGNOSIS: SURGEON: Geovanny Sanders MD CHILDREN'S TUTOR NURSERY: Mino Petersen. SURGERY/PROCEDURE: Esophagogastroduodenoscopy with biopsies. ANESTHESIA: Monitored Anesthesia Care LOG ID: [id number]. PREOPERATIVE DIAGNOSES: 1. Nausea and vomiting. 2. 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 POSTOPERATIVE DIAGNOSES: 1. No duodenal obstruction seen, tortuous descending duodenum, but no evidence of any obstruction. 2. Grade B esophagitis at GE junction. 3. NG tube trauma. CONSENT: Risks and benefits of the procedure were discussed with the patient and consent was obtained. ENDOSCOPE: Olympus adult gastroscope. MEDICATIONS: MAC sedation. DESCRIPTION OF THE PROCEDURE: The procedure was performed in the endoscopy suite. The patient was placed in left lateral decubitus position. The patient was monitored throughout. Once the patient was sedated, a bite block was placed. The endoscope was inserted in the esophagus, stomach, and duodenum. The esophagus and its upper, middle, and thirds were normal. However, on the GE junction, there were a lot of erosive changes consistent with some grade B esophagitis. There was a 2 centimeter hiatal hernia. Z-line appeared to be at 42 centimeters. The diaphragmatic hiatus was at 44 centimeters. The stomach exam did not have any debris or fluid within it. NG tube was removed. There were some NG tube trauma fields in various areas of the stomach. Random gastric biopsies were obtained. The stomach was significantly J- shaped. The duodenum was examined well into or through the fourth portion of the duodenum. I did not see any obstructive process. I did not see any mass lesions. There was some tortuosity to the postbulbar descending part of the duodenum, but again, I did not find any stricturing or obstruction. There was no significant dilation of the duodenum neither. Scope was then withdrawn. The patient was transferred to recovery room in stable condition. RECOMMENDATIONS: 1. We will discuss with Surgery. 2. May give a trial of clear liquids. 3. May need to consider small bowel series eventually if the patient has recurrent symptoms. Geovanny Sanders MD [id number] /[id number] OPERATIVE NO Observed: 07/11/2018 Status: COMPLETED Source: [place] 12:00 AM [facility] OTHER CAMPUS REPOSITORY HNO ID: [id number] Author: Geovanny Sanders Service: Gastroenterology Author Type: Physician Type: Operative Report Filed: 07/20/2018 8:51 AM Note Text: [facility] - Operative Report MARK SERRANO : 1950 AGE: 68. SEX: M PATIENT TYPE: I HOSP [facility]: [facility] LOCATION: [facility] ATTENDING PHYSICIAN: BARBARA BALDWIN CSN NUMBER: [id number] DATE OF SURGERY/PROCEDURE: 07/11/2018 INCISION/PROCEDURE START TIME: 10:33. INCISION CLOSE/PROCEDURE END TIME: 10:51. PREOPERATIVE DIAGNOSIS: See below POSTOPERATIVE DIAGNOSIS: See below SURGEON: Geovanny Sanders MD CHILDREN'S TUTOR NURSERY: Mino Petersen. SURGERY/PROCEDURE: Esophagogastroduodenoscopy with biopsies. ANESTHESIA: Monitored Anesthesia Care LOG ID: [id number]. PREOPERATIVE DIAGNOSES: 1. Nausea and vomiting. 2. 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 POSTOPERATIVE DIAGNOSES: 1. No duodenal obstruction seen, tortuous descending duodenum, but no evidence of any obstruction. 2. Grade B esophagitis at GE junction. 3. NG tube trauma. CONSENT: Risks and benefits of the procedure were discussed with the patient and consent was obtained. ENDOSCOPE: Olympus adult gastroscope. MEDICATIONS: MAC sedation. DESCRIPTION OF THE PROCEDURE: The procedure was performed in the endoscopy suite. The patient was placed in left lateral decubitus position. The patient was monitored throughout. Once the patient was sedated, a bite block was placed. The endoscope was inserted in the esophagus, stomach, and duodenum. The esophagus and its upper, middle, and thirds were normal. However, on the GE junction, there were a lot of erosive changes consistent with some grade B esophagitis. There was a 2 centimeter hiatal hernia. Z-line appeared to be at 42 centimeters. The diaphragmatic hiatus was at 44 centimeters. The stomach exam did not have any debris or fluid within it. NG tube was removed. There were some NG tube trauma fields in various areas of the stomach. Random gastric biopsies were obtained. The stomach was significantly J- shaped. The duodenum was examined well into or through the fourth portion of the duodenum. I did not see any obstructive process. I did not see any mass lesions. There was some tortuosity to the postbulbar descending part of the duodenum, but again, I did not find any stricturing or obstruction. There was no significant dilation of the duodenum neither. Scope was then withdrawn. The patient was transferred to recovery room in stable condition. RECOMMENDATIONS: 1. We will discuss with Surgery. 2. May give a trial of clear liquids. 3. May need to consider small bowel series eventually if the patient has recurrent symptoms. Geovanny Sanders MD [id number] /[id number] SURGICAL TISSUE EXAM Observed: 07/11/2018 Status: F Source: [facility] 12:00 AM HEALTH SYSTEM REPOSITORY Test performed at [address] [address] NAME: MARK SERRANO REQUESTING: GEOVANNY SANDERS M.D. 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 IMMUNOHISTOCHEMICAL STAIN FOR HELICOBACTER PYLORI IS NEGATIVE FOR ORGANISMS. OPERATIVE PROCEDURE: EGD CLINICAL INFORMATION: Vomiting; no duodenal obstruction, suspected esophagitis GROSS DESCRIPTION: Gastric bx Received in formalin labeled gastric biopsy are multiple lombardi soft segments of tissue aggregating to 1.2 x 0.4 x 0.2 cm. The specimens are totally submitted in formalin in one cassette, H. pylori. KVB:herminia DAVID M.D., PATHOLOGIST (Electronic signature on file) Signed out: 07/12/2018 17:17 PRINTED: 07/12/2018 Page 1 of 1 Performed By: #### SURG #### [place] [address] PROGRESS Observed: 07/10/2018 Status: COMPLETED Source: [place] 6:04 PM [facility] OTHER CAMPUS REPOSITORY HNO ID: [id number] Author: Barbara Baldwin Service: Hospital Medicine Author Type: Physician Type: Progress Notes Filed: 07/10/2018 10:31 PM Note Text: INTERNAL MEDICINE PROGRESS NOTE SERVICE DATE: 07/10/2018 SERVICE TIME: 6:05 PM ADMITTING PHYSICIAN: Dalia Santos Subjective CHIEF COMPLAINT: f/u medical issues listed below Current Facility-Administered Medications: Parenteral Nutrition - Adult INTRAVENOUS ONCE TPN (1800 START) iv contrast (radiology procedure) INTRAVENOUS DIRECTED PRN phenol 1 Ambia (CHLORASEPTIC) 1 Ambia MUCOUS MEMBRANE (TOPICAL MOUTH AND THROAT) q 2 H PRN fluticasone-vilanterol 100-25 mcg/dose 1 Inhalation (BREO ELLIPTA) 1 Inhalation INHALATION DAILY ondansetron 4 mg tab(s) (ZOFRAN) 4 mg ORAL q 4 H PRN Or ondansetron (PF) 4 mg injection (ZOFRAN) 4 mg INTRAVENOUS q 4 H PRN promethazine 12.5 mg tab(s) (PHENERGAN) 12.5 mg ORAL q 6 H PRN prochlorperazine 5 mg injection (COMPAZINE) 5 mg INTRAVENOUS q 4 H PRN heparin 5,000 Units injection 5,000 Units SUBCUTANEOUS q 12 H 0.9% NaCl 3-5 mL 3-5 mL INTRAVENOUS q 12 H morphine 1-2 mg injection 1-2 mg INTRAVENOUS q 4 H PRN ipratropium-albuterol 3 mL nebulizer solution (DUONEB) 3 mL INHALATION q 4 H PRN pantoprazole 40 mg injection (PROTONIX) 40 mg INTRAVENOUS DAILY (6 AM) 0.9% NaCl 10 mL 10 mL INTRAVENOUS q 12 H 0.9% NaCl 20 mL 20 mL INTRAVENOUS PRN INTERVAL HISTORY OF PRESENT ILLNESS: Only c/o BROWN Objective PHYSICAL EXAM: Patient Vitals for the past 24 hrs: BP Temp Temp src Pulse Resp SpO2 Weight 07/10/18 0720 184/86 37 ?C (98.6 ?F) - 87 16 94 % - 07/10/18 0718 176/84 - - - - - - 07/10/18 0550 - - - - 14 - - 07/10/18 0300 - - - - 16 - - 07/10/18 0102 - - - - 16 - - 07/10/18 0100 152/88 37.1 ?C (98.8 ?F) Oral 91 16 - - 07/09/181 - - - - - - 44 kg (97 lb) 07/09/182129 - - - 76 16 96 % - 07/09/18 2046 171/95 37.4 ?C (99.3 ?F) Oral 89 18 95 % - 07/09/18 193 - - - - 16 - - Body mass index is 16.14 kg/m?. GENERAL: Alert, no distress, cooperative OROPHARYNX:NG in R nose LUNGS: Lungs clear to auscultation. Good diaphragmatic excursion. CARDIAC: Normal S1 and S2; no rubs, murmurs, or gallops ABDOMEN: Abdomen soft EXTREMITIES: no swelling DATA: Diagnostic tests reviewed for today's visit: Significant findings were revd IMPRESSION: Prominent dilatation of the duodenum, measuring up to approximately 6 cm. ?The jejunum and ileum appear decompressed. ?Correlate clinically to the possibility of ?SMA syndrome. Result History XR UPPER GI W SMALL BOWEL SERIES (Order #[id number]) on 07/07/2018 Assessment/Plan Possible SMA syndrome/obstruction PLAN: EGD Wednesday C/w NG to [facility] SIGNATURE: Barbara Baldwin DO PATIENT NAME: Mark Serrano DATE: July 10, 2018 TIME: 6:05 PM PAGER/CONTACT #: CT CHEST WITH Observed: 07/10/2018 Status: F Source: [facility] 11:55 AM HEALTH SYSTEM REPOSITORY Performed at [facility] APPROVED BY: PACHECO BURGOS MD EXAMINATION: CHEST CT WITH CONTRAST CLINICAL HISTORY: Cough, nausea and vomiting. Technique: Spiral CT acquisition of the chest from the thoracic inlet to the upper abdomen following IV contrast. MQ: [id number]_5 Contrast: 50 mL Omnipaque [address] Dose-Length Product: 304.46 mGy*cm CT Dose Reduction Employed: mAs or kVp was manually adjusted based on either the patient size or age. Comparison: Unenhanced CT abdomen/pelvis 07/06/2018 RESULT: Limitations: None. Lines, tubes, and devices: Esophagogastric tube is in place with the tip in the stomach. The right upper extremity central venous catheter is in place with the tip at the cavoatrial junction. Lung parenchyma and pleura: Airspace consolidation at the dependent right lung base with air bronchograms most likely represents pneumonia. No pleural effusion. Calcified granuloma at the posterior ri ght lower lobe is noted. Left lung is clear. No pleural effusion or pneumothorax. Mucous/secretions are noted dependently in the trachea. Thoracic inlet, heart, and mediastinum: Ectasia of the ascending aorta measures 4.1 cm at the level of the main pulmonary artery. The proximal descending thoracic aorta measures 3.6 cm in caliber. Th e descending aorta tapers towards aortic hiatus where aortic caliber is 2.6 cm. There is no intimal dissection. Main pulmonary artery is of normal caliber. The heart is not enlarged. There is no per icardial effusion or thickening. Multivessel coronary artery atherosclerotic calcification is noted. No mediastinal, hilar or axillary lymphadenopathy. Bones and soft tissues: No destructive bone lesion. Chest wall is unremarkable. Upper abdomen: 1.1 cm hypodensity in the anterior right hepatic lobe (2:228) is noted. There is renal cortical thinning bilaterally. Admixture of intravascular contrast and unopacified blood in the p ortal vein and IVC is noted. IMPRESSION: 1. Airspace consolidation with air bronchograms at the dependent right lung base most likely represents pneumonia. 2. Ectasia of the ascending aorta measuring 4.1 cm. 3. 1.1 cm hypodensity at the anterior right hepatic lobe may likely represent a cyst or hemangioma. Initial further of evaluation with ultrasound is recommended. PROGRESS Observed: 07/10/2018 Status: COMPLETED Source: [place] 6:20 AM CLINIC OTHER CAMPUS REPOSITORY HNO ID: [id number] Author: Mojgan Bolden (Cns) Service: General Surgery Author Type: Nurse Specialist Type: Progress Notes Filed: 07/10/2018 1:15 PM Note Text: Emergency General Surgery Progress Note SERVICE DATE: 07/10/2018 Time: 0645 SUBJECTIVE: No overnight events. Reports mild nausea and abdominal pressure this morning Tolerating diet DIET NPO Parenteral Nutrition - Adult Nausea Yes Emesis No Flatus Yes minimal Bowel movement No Pain Controlled Yes Ambulating in room OBJECTIVE: Vitals: Temp (24hrs), Av.3 ?C (99.1 ?F), Min:37.1 ?C (98.8 ?F), Max:37.4 ?C (99.3 ?F) BP 152/88 Pulse 91 Temp 37.1 ?C (98.8 ?F) (Oral) Resp 14 Ht 165.1 cm (5' 5) Wt 44 kg (97 lb) SpO2 96% BMI 16.14 kg/m? O2 Therapy: Room Air IANDO: Date 07/09/18699 - 07/10/1865807/10/18699 - 07/11/18 0659 Shift 3519-9405 3678-9487 4800-2807 24 Hour Total 0247-4209 9540-3901 7543-2026 24 Hour Total I N T A K E TPN/PPN 800 800 TPN 800 800 Shift Total 800 800 O U T P U T Urine 650 1 651 Void (ml) 650 650 Urine Not Saved 1 1 Tubes 381 202 6655 Output (GI Feed/Drain 07/06/18 2230 Admission to Hospital Nasogastric Right Naris) 048 685 2368 Shift Total 650 252 680 3177 Weight (kg) 43.5 44 44 44 44 44 44 44 MEDICATIONS Current Facility-Administered Medications: phenol 1 Ambia (CHLORASEPTIC) 1 Ambia MUCOUS MEMBRANE (TOPICAL MOUTH AND THROAT) q 2 H PRN Parenteral Nutrition - Adult INTRAVENOUS ONCE TPN (1800 START) fluticasone-vilanterol 100-25 mcg/dose 1 Inhalation (BREO ELLIPTA) 1 Inhalation INHALATION DAILY ondansetron 4 mg tab(s) (ZOFRAN) 4 mg ORAL q 4 H PRN Or ondansetron (PF) 4 mg injection (ZOFRAN) 4 mg INTRAVENOUS q 4 H PRN promethazine 12.5 mg tab(s) (PHENERGAN) 12.5 mg ORAL q 6 H PRN prochlorperazine 5 mg injection (COMPAZINE) 5 mg INTRAVENOUS q 4 H PRN heparin 5,000 Units injection 5,000 Units SUBCUTANEOUS q 12 H 0.9% NaCl 3-5 mL 3-5 mL INTRAVENOUS q 12 H morphine 1-2 mg injection 1-2 mg INTRAVENOUS q 4 H PRN ipratropium-albuterol 3 mL nebulizer solution (DUONEB) 3 mL INHALATION q 4 H PRN pantoprazole 40 mg injection (PROTONIX) 40 mg INTRAVENOUS DAILY (6 AM) 0.9% NaCl 10 mL 10 mL INTRAVENOUS q 12 H 0.9% NaCl 20 mL 20 mL INTRAVENOUS PRN Labs: Recent Labs 07/10/18 0247 07/09/18 0336 07/08/18 0530 NA 139 141 136 K 3.2* 3.2* 4.6 CHLOR 94* 98 96* CO2 37* 37* 35* BUN 30* 28* 30* CREAT 1.29* 1.42* 1.54* GLUC 137* 112* 375* ANION 11 9 10 CA 9.0 8.1* 8.1* MG 2.0 1.8 2.4 P 3.2 3.5 4.6 WBC -- -- 4.49 HB -- -- 10.5* HCT -- -- 31.8* PLT -- -- 94* Exam: GENERAL: No distress, Alert NEURO: AANDOx3, CN II-XII grossly intact HEENT: normocephalic, atraumatic LUNGS: Unlabored breathing on room air CARDIAC: Regular rate and rhythm as above ABDOMEN: Soft, LUQ tenderness, non-distended. NG tube to LIWS for brownish-green drainage EXTREMITIES: ALBERTS, No deformities, No edema, PPP SKIN: Skin color, texture, turgor normal ? ASSESSMENT AND PLAN: Active Hospital Problems Diagnosis Date Noted - Bowel obstruction ([facility]) 07/07/2018 - SBO (small bowel obstruction) ([facility]) 07/07/2018 - Nicotine use disorder, F17.2 07/07/2018 - Hypertension - COPD (chronic obstructive pulmonary disease) ([facility]) 68 year old male with SBO, significant weight loss/malnutrition, concern for SMA syndrome - Medical management per primary - Cont NG LIWS - Continue TPN - Hypokalemia: replace IV - No acute surgical intervention at this point - Appreciate GI input: plan for EGD tomorrow - PT/OT ? 0900 ?Assessment and plan discussed with attending: Dr. Guerrero. ? - CT chest ? SIGNATURE: Mojgan Bolden APRN.ALL SOURCE INTELLIGENCE ANALYST PATIENT NAME: Mark Serrano DATE: July 10, 2018 TIME: 6:20 AM CONTACT: [id number] Emergency General Surgery Service Pager: For questions or concerns Wed-Wed 6a-5p please page [phone]. After 5pm and on Weekends and Holidays, please page [phone]. BASIC PANEL Collected: 07/10/2018 Status: F Source: [facility] 2:47 AM HEALTH SYSTEM REPOSITORY TYPE CODE TESTS RESULT OUT OF REFERENCE UNITS RANGE LAB NA(LOINC) 136-145 mEq/L Sodium Blood 139 LAB K(LOINC) 3.5-5.1 mEq/L Low Potassium Blood 3.2 LAB CL(LOINC) 98-107 mEq/L Low Chloride Blood 94 LAB CO2(LOINC) 21-32 mEq/L CO2 High Blood 37 LAB GLU(LOINC) 70-99 mg/dL Glucose High Blood 137 LAB BUN(LOINC) 7-18 mg/dL BUN High Blood 30 LAB CREA(LOINC 0.67-1.17 mg/dL ) High Creatinine Blood 1.29 LAB CA(LOINC) 8.5-10.1 mg/dL Calcium Blood 9.0 LAB ANGAP(LOIN 8-16 C) Anion Gap 11 Performed By: #### P8 #### [place] [address] MAGNESIUM BLOOD Collected: 07/10/2018 Status: F Source: [facility] 2:47 AM HEALTH SYSTEM REPOSITORY TYPE CODE TESTS RESULT OUT OF REFERENCE UNITS RANGE LAB MAG(LOINC) 1.6-2.6 mg/dL Magnesium Blood 2.0 Performed By: #### MAG #### [place] [address] PHOSPHORUS BLOOD Collected: 07/10/2018 Status: F Source: [facility] 2:47 AM HEALTH SYSTEM REPOSITORY TYPE CODE TESTS RESULT OUT OF REFERENCE UNITS RANGE LAB PHOS(LOINC 2.5-4.9 mg/dL ) Phosphorus Blood 3.2 Performed By: #### PHOS #### [place] [address] PROGRESS Observed: 07/09/2018 Status: COMPLETED Source: [facility] 3:06 PM CLINIC OTHER CAMPUS REPOSITORY HNO ID: [id number] Author: Christoph Robert Service: Gastroenterology Author Type: Physician Type: Progress Notes Filed: 07/09/2018 3:11 PM Note Text: CONSULT: GASTROENTEROLOGY SERVICE SERVICE DATE: 07/31/2017 SERVICE TIME: 3:06 PM SUBJECTIVE Chief complaint: 1. Persistent high NG output 2. 3. [place]: Nausea is better; does not like NG tube Current Facility-Administered Medications: phenol 1 Ambia (CHLORASEPTIC) 1 Ambia MUCOUS MEMBRANE (TOPICAL MOUTH AND THROAT) q 2 H PRN Uday Valluri 1 Ambia at 07/09/18 0851 Parenteral Nutrition - Adult INTRAVENOUS ONCE TPN (1800 START) H Palmer Heller fluticasone-vilanterol 100-25 mcg/dose 1 Inhalation (BREO ELLIPTA) 1 Inhalation INHALATION DAILY Uday Valluri 1 Inhalation at 07/09/18 0852 Parenteral Nutrition - Adult INTRAVENOUS ONCE TPN (1800 START) H Palmer Heller Last Rate: 100 mL/hr at 07/08/18 1800 ondansetron 4 mg tab(s) (ZOFRAN) 4 mg ORAL q 4 H PRN Uday Valluri Or ondansetron (PF) 4 mg injection (ZOFRAN) 4 mg INTRAVENOUS q 4 H PRN Uday Valluri promethazine 12.5 mg tab(s) (PHENERGAN) 12.5 mg ORAL q 6 H PRN Uday Valluri prochlorperazine 5 mg injection (COMPAZINE) 5 mg INTRAVENOUS q 4 H PRN Geovanny (Res) MD Tasha 5 mg at 07/08/18 1823 heparin 5,000 Units injection 5,000 Units SUBCUTANEOUS q 12 H Priti (Peanut Cleaner) APRN. MarkCAR STOWER 5,000 Units at 07/09/18 0858 0.9% NaCl 3-5 mL 3-5 mL INTRAVENOUS q 12 H Priti (Vianney) APRN. MarkCAR STOWER 3 mL at 07/07/18 0037 morphine 1-2 mg injection 1-2 mg INTRAVENOUS q 4 H PRN Priti (Vianney) APRN. MarkCAR STOWER 1 mg at 07/07/18 0037 ipratropium-albuterol 3 mL nebulizer solution (DUONEB) 3 mL INHALATION q 4 H PRN Priti (Vianney) APRN. MarkCAR STOWER 3 mL at 07/08/18 1556 pantoprazole 40 mg injection (PROTONIX) 40 mg INTRAVENOUS DAILY (6 AM) Gerson (Res) [place] 40 mg at 07/09/18 0503 0.9% NaCl 10 mL 10 mL INTRAVENOUS q 12 H H Palmer Awender 10 mL at 07/09/18 0857 0.9% NaCl 20 mL 20 mL INTRAVENOUS PRN H Palmer Arron ALLERGIES Allergen Reactions - Penicillin Mental Status Change Fully Assessed 07/09/18 COMPLETE REVIEW OF SYSTEMS: PAIN ASSESSMENT: Negative for pain GENERAL: No weight loss, malaise or fevers HEAD AND NECK: No headache, swollen glands PULMONARY: No cough, wheezing, dyspnea on exertion, or shortness of breath CARDIOVASCULAR: No chest pain, palpitations ABDOMINAL: Per HPI NEUROLOGIC: No dizziness, lightheadedness, or weakness OPHTHALMOLOGIC: No visual abnormalities MUSCULOSKELETAL: No pain, weakness, or leg swelling SKIN: No rash OBJECTIVE PHYSICAL EXAM: 07/08/18 1822 07/08/18 1902 07/09/18 0700 07/09/18 1041 BP: 130/58 143/75 Pulse: 75 69 Resp: Temp: 37.4 ?C (99.3 ?F) 37.3 ?C (99.1 ?F) TempSrc: Oral Oral SpO2: 98% 98% 92% Weight: 43.5 kg (95 lb 12.8 oz) Height: Estimated body mass index is 15.94 kg/m? as calculated from the following: Height as of this encounter: 165.1 cm (5' 5). Weight as of this encounter: 43.5 kg (95 lb 12.8 oz). GENERAL: Alert, no distress, cooperative HEENT: PERRLA, normocephalic, no thyromegaly, no lymphadenopathy, trachea centrally located CHEST: Clear to auscultation and percussion bilaterally CVS: RRR, no murmur/gallop ABDOMEN: Soft, mild TTP epigastric area, BS present DATA: Diagnostic tests reviewed for today's visit: CBC: No results for input(s): WBC, RBC, HB, HCT, PLT, MCV, MCH, MPV, RDW in the last 24 hours. Coags: No results for input(s): INR, APTT in the last 24 hours. Invalid input(s): PT BMP: Recent Labs 07/09/18 0336 NA 141 K 3.2* CHLOR 98 CO2 37* BUN 28* CREAT 1.42* GLUC 112* CMP: Recent Labs 07/09/18 0336 NA 141 K 3.2* CHLOR 98 CO2 37* BUN 28* CREAT 1.42* GLUC 112* CA 8.1* MG 1.8 ANION 9 Liver Function, Amylase, Lipase: No results for input(s): TPROT, ALB, ALT, AST, ALKPHOS, TBILI, AMYLASE, LIPASE, LACTATE in the last 24 hours. IMPRESSION 1. SBO ? SMA syndrome 2. Surgical service requesting EGD to rule out intra luminal duodenal lesion 3. RECOMMENDATION/PLAN 1. EGD Wednesday 2. Continue NG tube 3. SIGNATURE: Christoph Robert MD PATIENT NAME: Mark Serrano DATE: 07/09/18 TIME: 3:06 PM MOBILE: [phone] PROGRESS Observed: 07/09/2018 Status: COMPLETED Source: [facility] 9:45 AM CLINIC OTHER CAMPUS REPOSITORY HNO ID: [id number] Author: Uday Jo Service: Hospital Medicine Author Type: Physician Type: Progress Notes Filed: 07/09/2018 9:52 AM Note Text: INPATIENT PROGRESS NOTE CHIEF COMPLAINT: abd pain N/V INTERVAL HPI: Pt feels a little better today. Nausea seems better with nausea meds. No BM since 07/06. Flatus+. C/o discomfort from NG tube PHYSICAL EXAM: BP 143/75 Pulse 69 Temp (Src) 99.1 (Oral) Resp 18 Ht 5' 5 (1.65m) Wt 95 lb 12.8 oz (43.5kg) SpO2 98% BMI 15.94 kg/(m2). GENERAL: Alert, no distress, cooperative, NG+ LUNGS:diminished SB shayy CARDIAC: Normal S1 and S2; no rubs, murmurs, or gallops ABDOMEN: Abdomen soft,mild LUQ tenderness BS normal, No masses or organomegaly EXTREMITIES: no edema DATA: Diagnostic tests reviewed for today's visit: CBC, Coags, BMP, Mg, Phos Recent Labs 07/09/18 0336 07/08/18 0530 07/07/18 0410 WBC -- 4.49 6.78 HB -- 10.5* 11.2* HCT -- 31.8* 34.6* PLT -- 94* 117* NA 141 136 142 K 3.2* 4.6 3.8 CHLOR 98 96* 103 CO2 37* 35* 31 BUN 28* 30* 31* CREAT 1.42* 1.54* 2.03* GLUC 112* 375* 117* CA 8.1* 8.1* 8.6 MG 1.8 2.4 1.7 P 3.5 4.6 4.4 Assessment/Plan #SBO with concern for SMA syndrome- no surgical interventions per GS note.abd xray seems improving. Now with NG and started on TPN. ? Start CLD. Defer to GS # [place] with CKD 3- improving # COPD- stable restart home Breo #HTN stable. Home emds on hold as NPO # H/o crohns disease- PEntasa on hold # DVT PPX- on heparin Wean O2 to RA. SIGNATURE: Uday Jo MD PATIENT NAME: Mark Serrano DATE: July 09, 2018 TIME: 9:45 AM PAGER: PROGRESS Observed: 07/09/2018 Status: COMPLETED Source: [facility] 6:24 AM CLINIC OTHER CAMPUS REPOSITORY HNO ID: [id number] Author: Mojgan Ring (Salon Shampoo Assistant) Yuan Service: General Surgery Author Type: Nurse Specialist Type: Progress Notes Filed: 07/09/2018 10:05 AM Note Text: Emergency General Surgery Progress Note SERVICE DATE: 07/09/2018 06 SUBJECTIVE: Reports nausea, LUQ tenderness Tolerating diet DIET NPO Parenteral Nutrition - Adult Nausea Yes Emesis No Flatus No Bowel movement No Pain Controlled Yes Ambulating No OBJECTIVE: Vitals: Temp (24hrs), Av.1 ?C (98.7 ?F), Min:36.7 ?C (98.1 ?F), Max:37.4 ?C (99.3 ?F) BP 130/58 Pulse 75 Temp 37.4 ?C (99.3 ?F) (Oral) Resp 18 Ht 165.1 cm (5' 5) Wt 43.5 kg (95 lb 12.8 oz) SpO2 98% BMI 15.94 kg/m? O2 Therapy: Nasal Cannula IANDO: Date 07/08/18699 - 07/09/18 0659 07/09/18 07 - 07/10/18 0659 Shift 6853-2597 2514-7572 6976-5443 24 Hour Total 4093-1632 9639-0310 8601-7734 24 Hour Total I N T A K E TPN/PPN 800 800 TPN 800 800 Shift Total 800 800 O U T P U T Urine 175 100 275 Void (ml) 175 100 275 Tubes 282 812 9230 Output (GI Feed/Drain 07/06/18 2230 Admission to Hospital Nasogastric Right Naris) 460 793 8525 Shift Total 425 315 722 9834 Weight (kg) 42.8 43.5 43.5 43.5 43.5 43.5 43.5 43.5 MEDICATIONS Current Facility-Administered Medications: fluticasone-vilanterol 100-25 mcg/dose 1 Inhalation (BREO ELLIPTA) 1 Inhalation INHALATION DAILY Parenteral Nutrition - Adult INTRAVENOUS ONCE TPN (1800 START) ondansetron 4 mg tab(s) (ZOFRAN) 4 mg ORAL q 4 H PRN Or ondansetron (PF) 4 mg injection (ZOFRAN) 4 mg INTRAVENOUS q 4 H PRN promethazine 12.5 mg tab(s) (PHENERGAN) 12.5 mg ORAL q 6 H PRN prochlorperazine 5 mg injection (COMPAZINE) 5 mg INTRAVENOUS q 4 H PRN heparin 5,000 Units injection 5,000 Units SUBCUTANEOUS q 12 H 0.9% NaCl 3-5 mL 3-5 mL INTRAVENOUS q 12 H morphine 1-2 mg injection 1-2 mg INTRAVENOUS q 4 H PRN ipratropium-albuterol 3 mL nebulizer solution (DUONEB) 3 mL INHALATION q 4 H PRN pantoprazole 40 mg injection (PROTONIX) 40 mg INTRAVENOUS DAILY (6 AM) 0.9% NaCl 10 mL 10 mL INTRAVENOUS q 12 H 0.9% NaCl 20 mL 20 mL INTRAVENOUS PRN Labs: Recent Labs 07/09/18 0336 07/08/18 0530 07/07/18 0410 NA 141 136 142 K 3.2* 4.6 3.8 CHLOR 98 96* 103 CO2 37* 35* 31 BUN 28* 30* 31* CREAT 1.42* 1.54* 2.03* GLUC 112* 375* 117* ANION 9 10 12 CA 8.1* 8.1* 8.6 MG 1.8 2.4 1.7 P 3.5 4.6 4.4 WBC -- 4.49 6.78 HB -- 10.5* 11.2* HCT -- 31.8* 34.6* PLT -- 94* 117* Exam: GENERAL: No distress, Alert NEURO: AANDOx3, CN II-XII grossly intact HEENT: normocephalic, atraumatic LUNGS: Unlabored breathing on nasal canula CARDIAC: Regular rate and rhythm as above ABDOMEN: Soft, LUQ tenderness, non-distended. NG tube to LIWS for brownish-green drainage EXTREMITIES: ALBERTS, No deformities, No edema, PPP SKIN: Skin color, texture, turgor normal ? ASSESSMENT AND PLAN: Active Hospital Problems Diagnosis Date Noted - Bowel obstruction (HCC) 07/07/2018 - SBO (small bowel obstruction) ([facility]) 07/07/2018 - Nicotine use disorder, F17.2 07/07/2018 - Hypertension - COPD (chronic obstructive pulmonary disease) ([facility]) 68 year old male with SBO, significant weight loss/malnutrition, concern for SMA syndrome ? - Medical management per primary - Cont NG LIWS - Continue TPN - No acute surgical intervention at this point - Consult GI for EGD to rule out neoplasm, [place] Feeding tube may be needed ? 0810 Assessment and plan discussed with attending: Dr. Guerrero. ? SIGNATURE: Mojgan Bolden APRN.ALL SOURCE INTELLIGENCE ANALYST PATIENT NAME: Mark Serrano DATE: July 09, 2018 TIME: 6:24 AM CONTACT: [id number] Emergency General Surgery Service Pager: For questions or concerns Mon-Fri 6a-5p please page [phone]. After 5pm and on Weekends and Holidays, please page [phone]. BASIC PANEL Collected: 07/09/2018 Status: F Source: [facility] 3:36 AM HEALTH SYSTEM REPOSITORY TYPE CODE TESTS RESULT OUT OF REFERENCE UNITS RANGE LAB NA(LOINC) 136-145 mEq/L Sodium Blood 141 LAB K(LOINC) 3.5-5.1 mEq/L Low Potassium Blood 3.2 LAB CL(LOINC) 98-107 mEq/L Chloride Blood 98 LAB CO2(LOINC) 21-32 mEq/L CO2 High Blood 37 LAB GLU(LOINC) 70-99 mg/dL Glucose High Blood 112 LAB BUN(LOINC) 7-18 mg/dL BUN High Blood 28 LAB CREA(LOINC 0.67-1.17 mg/dL ) High Creatinine Blood 1.42 LAB CA(LOINC) 8.5-10.1 mg/dL Low Calcium Blood 8.1 LAB ANGAP(LOIN 8-16 C) Anion Gap 9 Performed By: #### P8 #### [facility] [address] [place] [address] MAGNESIUM BLOOD Collected: 07/09/2018 Status: F Source: [facility] 3:36 AM HEALTH SYSTEM REPOSITORY TYPE CODE TESTS RESULT OUT OF REFERENCE UNITS RANGE LAB MAG(LOINC) 1.6-2.6 mg/dL Magnesium Blood 1.8 Performed By: #### MAG #### [facility] [address] [place] [address] PHOSPHORUS BLOOD Collected: 07/09/2018 Status: F Source: [facility] 3:36 AM HEALTH SYSTEM REPOSITORY TYPE CODE TESTS RESULT OUT OF REFERENCE UNITS RANGE LAB PHOS(LOINC 2.5-4.9 mg/dL ) Phosphorus Blood 3.5 Performed By: #### PHOS #### [facility] [address] [place] [address] ABDOMEN 1 VIEW Observed: 07/08/2018 Status: F Source: [facility] 4:40 PM HEALTH SYSTEM REPOSITORY Performed at [facility] APPROVED BY: KAMRAN ALSTON MD ABDOMEN , ONE VIEW DATE: 07/08/2018 16:33 HISTORY: Nausea and vomiting. ENCOUNTER: Not applicable COMPARISON: Upper GI examination dated 07/07/2018. CT examination of the abdomen and pelvis without contrast from outside hospital dated 07/06/2018. TECHNIQUE: Supine abdomen, 1 image(s) FINDINGS: No discrete dilated bowel loops. Enteric contrast is noted within nondilated colon. Again demonstrated is enteric tube, proximal side-port overlies the distal esophagus, superior to the esophagogastric junction and tip overlies the proximal aspect of the gastric lumen. Again noted are scattered calcifications overlying the kidneys bilaterally, compatible with previously demonstrated renal calyceal stones. Lung bases are clear. Osseous structures grossly unremarkable.. IMPRESSION: NO DILATED SMALL BOWEL LOOPS TO SUGGEST OBSTRUCTION. LITTLE INTERVAL CHANGE REGARDING APPEARANCE OF ENTERIC TUBE WITH SIDE PORT ABOVE THE ESOPHAGOGASTRIC JUNCTION. ADVANCEMENT OF APPROXIMATELY 5 CM SUGGESTED. ENTERIC CONTRAST WITHIN NONDILATED COLON. NURSING PROG Observed: 07/08/2018 Status: COMPLETED Source: [facility] 3:58 PM CLINIC OTHER CAMPUS REPOSITORY HNO ID: [id number] Author: Vera CortezRn) Alejo RN Service: Nursing Author Type: Registered Nurse Type: Nursing Progress Note Filed: 07/08/2018 4:00 PM Note Text: Patient stating that zofran has not been helping his nausea. NG with 250 out from 7a-3p. Now with blood tinged drainage from NG. Surgery paged regarding these findings. 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 No Advance Directive: Current Advance Directive: Health Care Power of Financial Writer;Living Will In Chart: No Accountant Controller Attempted to Assist with AD Completion: No Unable to Assist Due To:: (refusing at this time) Health Literacy: 1. How often do you need to have someone help you when you read instructions, pamphlets, or other written material from your doctor or pharmacy? Never - 1 2. How confident are you filling out medical forms by yourself? Extremely - 1 If Patient scores > 3 on either question, the following interventions were put into place: Patient did not score > 3 FUNCTIONAL AND COGNITIVE/BEHAVIORAL PRIOR TO ADMISSION: Baseline Mental Status: Alert AND Oriented, Person, Place , Time and Situation Functional Status: Independent Does Patient Currently Receive Any Community Services or Home Care? None Equipment Prior to Admission: Aerosols/Intermittent positive breathing/Respiratory Treatments Has the Patient Been in a Retirement Facility in the Past 30 days? No SOCIAL: Living Arrangement: Home Lives With: with a roommate Financial Resources: Retired Primary Contact: No emergency contact information on file. Supportive: Yes Other Important Patient Contacts: None Caregiver Assessment: Caregiver is ready, willing and able to meet the patient's needs as recommended by the inter-professional team? 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 No Medication Adherence: I am convinced of the importance of my prescription medication: Agree completely - 0 I worry that my prescription medication will do more harm than good to me Disagree completely - 0 I feel financially burdened by my [id number] expenses for my prescription medication: Agree somewhat - 0 Patient is categorized as low risk < 2 Are you interested in bedside delivery of your medications? No Food Concerns: In the Last Month, Have You had Trouble Getting Food? No trouble getting food During the Last Month, Have You Worried Whether Your Food Would Run Out Before You Had Enough Money to Buy More? No Is the Patient Psychosocially Complex? No ASSESSMENT AND PLAN: Medical Needs: 2 or more chronic diseases and Durable Medical Equipment Psychosocial Needs: None FREEDOM OF CHOICE EXPLAINED: No not indicated at this time POTENTIAL TRANSITION PLANS Home Long Term OT/relay technicianRetirement Facility/Intermediate Care Facility To Be Determined Patient from home with roommate. 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 No needs at this time. Currently on TPN and LIWS with corpak placed. No weekend DC planned. Will follow for any transitional needs SIGNATURE: Lalita Ritter RN PATIENT NAME: Mark Serrano DATE: July 08, 2018 TIME: 3:43 PM PAGER/CONTACT #: [phone] HGB A1C Collected: 07/08/2018 Status: F Source: [facility] 2:15 PM HEALTH SYSTEM REPOSITORY TYPE CODE TESTS RESULT OUT OF RANGE REFERENCE UNITS LAB A1C5(LOINC) 4.2-6.3 % Hgb A1c 5.9 Result Comment: Method is National Glycohemoglobin Standardization Program (NGSP) compliant. LAB ESAVG(LOINC) mg/dl Est. Avg Glucose 123 Performed By: #### HA1C #### [place] [id number] PROGRESS Observed: 07/08/2018 Status: COMPLETED Source: [facility] 12:14 PM CLINIC OTHER CAMPUS REPOSITORY HNO ID: [id number] Author: Uday Jo Service: Hospital Medicine Author Type: Physician Type: Progress Notes Filed: 07/08/2018 12:26 PM Note Text: INPATIENT PROGRESS NOTE CHIEF COMPLAINT: Abd pain/N/V INTERVAL HPI: Pt feels a little better today. Says abd pain improved. Still with NG tube. No fevers/chills. Denies CP/SOB. Has mild chest congestion PHYSICAL EXAM: BP 128/62 Pulse 61 Temp (Src) 98.1 (Oral) Resp 18 Ht 5' 5 (1.65m) Wt 94 lb 6.4 oz (42.8kg) SpO2 99% BMI 15.71 kg/(m2). GENERAL: Alert, no distress, cooperative, NG+, cachexic LUNGS: slightly diminished bases CARDIAC: Normal S1 and S2; no rubs, murmurs, or gallops ABDOMEN: Abdomen soft, non-tender, BS normal, No masses or organomegaly EXTREMITIES: no edema DATA: Diagnostic tests reviewed for today's visit: CBC, Coags, BMP, Mg, Phos Recent Labs 07/08/18 0530 07/07/18 0410 WBC 4.49 6.78 HB 10.5* 11.2* HCT 31.8* 34.6* PLT 94* 117* NA 136 142 K 4.6 3.8 CHLOR 96* 103 CO2 35* 31 BUN 30* 31* CREAT 1.54* 2.03* GLUC 375* 117* CA 8.1* 8.6 MG 2.4 1.7 P 4.6 4.4 Assessment/Plan # SBO with concern for SMA syndrome- no surgical interventions per GS note. Now with NG and started on TPN. GI sined off # [place] with CKD 3- improving # COPD- stable restart home Breo HTN stable. Home emds on hold as NPO # H/o crohns disease- PEntasa on hold # DVT PPX- on heparin SIGNATURE: Uday Jo MD PATIENT NAME: Mark Serrano DATE: July 08, 2018 TIME: 12:14 PM PAGER: NUTRITION Observed: 07/08/2018 Status: COMPLETED Source: [facility] 12:10 PM CLINIC OTHER CAMPUS REPOSITORY HNO ID: [id number] Author: Maris Patrick RD Service: NST-Nutrition Support Team Author Type: Registered Dietitian Type: Nutrition Filed: 07/08/2018 12:20 PM Note Text: Attestation signed by Stefan Heller at 07/08/2018 4:39 PM Discussed with the RD and agree with RD's findings and plan as documented in the RD's note. Has PICC now-Will switch to TPN due to crohn's, wt loss and acute GI symptoms Stefan Heller MD NUTRITION SUPPORT TEAM TOPIC: NUTRITION SUPPORT TEAM PROGRESS NOTE PATIENT NAME: Mark Serrano DATE OF : 1950 DATE: 07/08/2018 Nutritional Status: SEVERE PROTEIN-CALORIE MALNUTRITION ? In the context of Chronic Illness or Injury based on: Unintentional Weight Loss: >20% in 12 months Insufficient Energy Intake: Less than 75% energy intake compared to estimated needs for greater than or equal to 1 month Subcutaneous Fat Loss: Severe Loss Muscle Loss Severe Loss ? NUTRITION CARE PLAN: ? 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 Intervention: Start NST for PN evaluation --> 07/07/18 for TPN support Interval History: LOS d 1, tolerating TPN, remains NPO/NGT, no BM or flatus, ongoing nausea, No pain, s/p PICC, GI has s/o Assessment: 68 year old male with a PMHx COPD, Crohn's, Depression, HTN that presents with complaints of abdominal pain. Pt starting having 10/10 abdominal pain, nausea, and vomiting that started yesterday at 1pm. ?Pt's last BM was 2 days ago. ?He reports diarrhea but this is his baseline. Reports history of SBO x 2, bowel resection in 2006. ?Denies fever, chills, recent illness, CP, SOB, cough, dysuria, hematuria, blood in stools. ? ? CT abd reveals distended stomach and proximal duodenum obstruction , r/o SMA syndrome 07/07 s/p PICC, GI s/o 07/08 no surgeries plan at present, GS suggested EGD, or feeding tube ? Tmax: 36.9 WBC: 4.49 Edema: none noted Lines: single lumen RT arm PICC placed 07/07-> WNL Lytes: reviewed CRP: 0.31 TRIG :327 PAB: check 07/11 UOP: inc WT: 42.8 kg Recommendations: Change to CTPN, increased NACL, calcium, decreased KCL, Mg, K Phos TPN script: 2.4 L/24 hrs providing 1480 calories ( 35 kcals/kg ABW 42 kg) and 70 gms pro ( 1.6 gms/kg ABW 42 kg) per day Collaborated with Dr Heller and orders written. Vitals: Temperature Max in 24 hours: Temp (24hrs), Av.8 ?C (98.3 ?F), Min:36.7 ?C (98.1 ?F), Max:36.9 ?C (98.4 ?F) Current Vital Signs: BP 128/62 Pulse 61 Temp 36.7 ?C (98.1 ?F) (Oral) Resp 18 Ht 165.1 cm (5' 5) Wt 42.8 kg (94 lb 6.4 oz) SpO2 99% BMI 15.71 kg/m? Current Weight: Weight: 42.8 kg (94 lb 6.4 oz) Intake AND Output: Intake/Output Summary (Last 24 hours) at 07/08/18 1210 Last data filed at 07/08/18 0900 Gross per 24 hour Intake 0 ml Output 1110 ml Net -1110 ml Laboratory Data: Recent Labs 07/08/18 0530 07/07/18 0410 NA 136 142 K 4.6 3.8 CHLOR 96* 103 CO2 35* 31 CREAT 1.54* 2.03* BUN 30* 31* GLUC 375* 117* P 4.6 4.4 MG 2.4 1.7 CA 8.1* 8.6 Recent Labs 07/08/18 0530 CRP 0.31* Maris Patrick, RD, LD, [facility] Pager: [phone] Increments: 3 PROGRESS Observed: 07/08/2018 Status: COMPLETED Source: [place] 6:34 AM CLINIC OTHER CAMPUS REPOSITORY HNO ID: [id number] Author: Mojgan Ring ([facility]) Yuan Service: General Surgery Author Type: Nurse Specialist Type: Progress Notes Filed: 07/08/2018 10:55 AM Note Text: Emergency General Surgery Progress Note SERVICE DATE: 07/08/2018 Time: 0640 SUBJECTIVE: Reports mild nausea, states almost always has nausea. Denies abdominal pain Tolerating diet DIET NPO Parenteral Nutrition - Adult Nausea Yes Emesis No Flatus No Bowel movement No Pain Controlled Yes Ambulating No OBJECTIVE: Vitals: Temp (24hrs), Av.8 ?C (98.3 ?F), Min:36.7 ?C (98.1 ?F), Max:36.9 ?C (98.4 ?F) BP 162/68 Pulse 60 Temp 36.9 ?C (98.4 ?F) (Oral) Resp 20 Ht 165.1 cm (5' 5) Wt 42.8 kg (94 lb 6.4 oz) SpO2 96% BMI 15.71 kg/m? O2 Therapy: Nasal Cannula IANDO: Date 07/07/18699 - 07/08/1865807/08/18699 - 07/09/18 0659 Shift 4481-8067 4217-9090 3751-3588 24 Hour Total 1620-0675 6764-8555 7311-7369 24 Hour Total I N T A K E Shift Total O U T P U T Urine 250 225 475 Void (ml) 250 225 475 Tubes 110 350 460 Output (GI Feed/Drain 07/06/18 2230 Admission to Hospital Nasogastric Right Naris) 110 350 460 Shift Total 360 575 935 Weight (kg) 44.7 42.8 42.8 42.8 42.8 42.8 42.8 42.8 MEDICATIONS Current Facility-Administered Medications: heparin 5,000 Units injection 5,000 Units SUBCUTANEOUS q 12 H 0.9% NaCl 3-5 mL 3-5 mL INTRAVENOUS q 12 H ondansetron 4 mg tab(s) (ZOFRAN) 4 mg ORAL q 6 H PRN Or ondansetron (PF) 4 mg injection (ZOFRAN) 4 mg INTRAVENOUS q 6 H PRN morphine 1-2 mg injection 1-2 mg INTRAVENOUS q 4 H PRN ipratropium-albuterol 3 mL nebulizer solution (DUONEB) 3 mL INHALATION q 4 H PRN pantoprazole 40 mg injection (PROTONIX) 40 mg INTRAVENOUS DAILY (6 AM) Parenteral Nutrition - Adult INTRAVENOUS ONCE TPN (1800 START) 0.9% NaCl 10 mL 10 mL INTRAVENOUS q 12 H 0.9% NaCl 20 mL 20 mL INTRAVENOUS PRN Labs: Recent Labs 07/08/18 0530 07/07/18 0410 NA 136 142 K 4.6 3.8 CHLOR 96* 103 CO2 35* 31 BUN 30* 31* CREAT 1.54* 2.03* GLUC 375* 117* ANION 10 12 CA 8.1* 8.6 MG 2.4 1.7 P 4.6 4.4 WBC 4.49 6.78 HB 10.5* 11.2* HCT 31.8* 34.6* PLT 94* 117* Exam: GENERAL: No distress, Alert NEURO: AANDOx3, CN II-XII grossly intact HEENT: normocephalic, atraumatic LUNGS: Unlabored breathing on room air. Productive cough for white mucus CARDIAC: Regular rate and rhythm as above ABDOMEN: Soft, mild diffuse tenderness, non-distended. NG tube to LIWS for brownish-green drainage EXTREMITIES: ALBERTS, No deformities, No edema, PPP SKIN: Skin color, texture, turgor normal ASSESSMENT AND PLAN: Active Hospital Problems Diagnosis Date Noted - Bowel obstruction (HCC) 07/07/2018 - SBO (small bowel obstruction) (HCC) 07/07/2018 - Nicotine use disorder, F17.2 07/07/2018 - Hypertension - COPD (chronic obstructive pulmonary disease) (HCC) 68 year old male with SBO, significant weight loss/malnutrition, concern for SMA syndrome - Medical management per primary - Cont NG LIWS - Continue TPN - No acute surgical intervention at this point - May need EGD to rule out neoplasm, Feeding tube may be needed 0800 Assessment and plan discussed with attending: Dr. Guerrero. SIGNATURE: Mojgan Bolden APRN.ALL SOURCE INTELLIGENCE ANALYST PATIENT NAME: Mark Serrano DATE: July 08, 2018 TIME: 6:35 AM CONTACT: [id number] Emergency General Surgery Service Pager: For questions or concerns Mon-Wed 6a-5p please page [phone]. After 5pm and on Weekends and Holidays, please page [phone]. HEMOGRAM/DIFF Collected: 07/08/2018 Status: F Source: [facility] 5:30 AM HEALTH SYSTEM REPOSITORY TYPE CODE TESTS RESULT OUT OF REFERENCE UNITS RANGE LAB WBC(LOINC) 4.23-9.07 thou/cmm WBC 4.49 LAB RBC(LOINC) 4.63-6.08 mil/cmm Low RBC 3.45 LAB HGB(LOINC) 13.7-17.5 g/dL Low Hgb 10.5 LAB HCT(LOINC) 40.1-51.0 % Low Hct 31.8 LAB MCV(LOINC) 83.2-95.6 fl MCV 92.2 LAB MCH(LOINC) 25.7-32.2 pg MCH 30.4 LAB MCHC(LOINC 32.3-36.5 % ) MCHC 33.0 LAB RDW(LOINC) 11.6-14.4 % RDW 13.3 LAB RDWSD(LOIN 36.1-45.8 fl C) RDW SD 44.6 LAB PLT(LOINC) 141-365 thou/cmm Low Platelet 94 LAB MPV(LOINC) 8.7-12.0 fl MPV 11.2 LAB SEG(LOINC) % Seg Neutrophil 78.1 LAB IGRE(LOINC % ) Immature Grans 0.20 LAB LYMPH(LOIN % C) Lymphocyte 12.7 LAB MNO(LOINC) % Monocyte 7.3 LAB EOSIN(LOIN % C) Eosinophil 1.3 LAB BASO(LOINC % ) Basophil 0.4 LAB SEGN(LOINC 1.78-5.38 thou/cmm ) Abs. Neut (ANC)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 NA(LOINC) 136-145 mEq/L Sodium Blood 142 LAB K(LOINC) 3.5-5.1 mEq/L Potassium Blood 3.8 LAB CL(LOINC) 98-107 mEq/L Chloride Blood 103 LAB CO2(LOINC) 21-32 mEq/L CO2 Blood 31 LAB GLU(LOINC) 70-99 mg/dL Glucose High Blood 117 LAB BUN(LOINC) 7-18 mg/dL BUN High Blood 31 LAB CREA(LOINC 0.67-1.17 mg/dL ) High Creatinine Blood 2.03 LAB CA(LOINC) 8.5-10.1 mg/dL Calcium Blood 8.6 LAB ANGAP(LOIN 8-16 C) Anion Gap 12 Performed By: #### P8 #### [place] [address] MAGNESIUM BLOOD Collected: 07/07/2018 Status: F Source: [facility] 4:10 AM HEALTH SYSTEM REPOSITORY TYPE CODE TESTS RESULT OUT OF REFERENCE UNITS RANGE LAB MAG(LOINC) 1.6-2.6 mg/dL Magnesium Blood 1.7 Performed By: #### MAG #### [place] [address] PHOSPHORUS BLOOD Collected: 07/07/2018 Status: F Source: [facility] 4:10 AM HEALTH SYSTEM REPOSITORY TYPE CODE TESTS RESULT OUT OF REFERENCE UNITS RANGE LAB PHOS(LOINC 2.5-4.9 mg/dL ) Phosphorus Blood 4.4 Performed By: #### PHOS #### [place] [address] NURSING PROG Observed: 07/07/2018 Status: COMPLETED Source: [place] 2:37 AM CLINIC OTHER CAMPUS REPOSITORY O ID: [id number] Author: Marva (Rn) NORMA Manzano Service: (none) Author Type: Registered Nurse Type: Nursing Progress Note Filed: 07/07/2018 2:39 AM Note Text: Nursing Progress Note Patient Name: Mark Serrano Patient Location: [place] [address]/[id number]* Daily Note: VIANNEY Priti ordered to advance NG tube approx 1in. Pt tolerated well. Priti also notified of pts NG output of 700. Will continue to monitor This note was completed by: Marva Manzano RN CHEST 1 VIEW Observed: 07/07/2018 Status: F Source: [facility] 1:37 AM HEALTH SYSTEM REPOSITORY Performed at [facility] APPROVED BY: LETI STANTON MD EXAM: CHEST 1 VIEW HISTORY: Shortness of breath COMPARISON: None available FINDINGS: See impression IMPRESSION: Enteric tube sidehole projects at the GE junction. Advancement is recommended. No confluent airspace disease. Unable to exclude pleural effusion or pneumothorax on this limited supine technique (unlabeled). Cardiomediastinal contours are within normal limits. Bones are unremarkable. CONSULT Observed: 07/07/2018 Status: COMPLETED Source: [place] 12:49 AM CLINIC OTHER CAMPUS REPOSITORY HNO ID: [id number] Author: Sg Guerrero Service: General Surgery Author Type: Physician Type: Consults Filed: 07/07/2018 1:42 PM Note Text: CONSULT: EMERGENCY GENERAL SURGERY SERVICE SERVICE DATE: 07/07/2018 SERVICE TIME: 12:50 AM REASON FOR CONSULT: SBO REQUESTING PHYSICIAN: Priti Arias APRN/VIANNEY PRIMARY CARE PHYSICIAN: Jacqui Cadet MD Subjective Mr. Serrano is a 68 year old male who presents with two days of increased abdominal pain. Patient states his pain started 2 days prior. He had a BM that morning and has not been able to pass any flatus or have BMs since. He endorses nausea and emesis during this time (nonbloody, but dark per patient). He denies fevers, chills, SOB, CP. Per patient, he has had 30-40 lbs weight loss over the past year and 10-15 lbs weight loss in the last couple of weeks. He had a colonoscopy in 2009 he believes and said there were only benign polyps found at the time. He has had 2 prior SBOs and an ex lap with SBR 2003. He denies history of colon CA in himself or family. Patient seen at outside hospital and CT A/P showed: distended stomach and proximal duodenum with transition in the transverse (3rd) segment, similar to the prior study (08/14/2016). Abrupt transition at the transverse segment crossing the aorta. Concern for SMA syndrome mentioned in read. Hx of Crohn's, IBS, Emphysema, chronic diarrhea. CT Abdomen/Pelvis: Distended stomach and proximal duodenum with transition in the transverse (3rd) segment, similar to the prior study. Question SMA syndrome. Nonobstructing renal stones. Ectatic mid abdominal aorta. Old healed granulomatous disease. PAST MEDICAL HISTORY Diagnosis Date - Arthritis - COPD (chronic obstructive pulmonary disease) (HCC) - Crohn's disease (HCC) - Depression - Diarrhea - Emphysema - Hypertension - IBS (irritable bowel syndrome) - Unspecified essential hypertension PAST SURGICAL HISTORY Procedure Laterality Date - COLONOSCOP W/ OR W/O [facility] SPEC Colonoscopy x 4 - PAST SURGICAL HISTORY OF 2003 lower bowel surgery - PAST SURGICAL HISTORY OF dental surgery - REMOVAL OF TONSILS,<12 Y/O Tonsillectomy FAMILY HISTORY Problem Relation Age of Onset - other (black lung) Father - other (lung disease) Brother - other (polio) Sister - other (hip problems) Daughter defects Social History Substance Use Topics - Smoking status: Former Smoker - Smokeless tobacco: Never Used - Alcohol use No Prescriptions Prior to Admission: loperamide HCl (IMODIUM ORAL) Take by mouth once daily. Disp: Rfl: albuterol HFA (VENTOLIN HFA) 90 mcg/actuation inhaler Inhale 2 Puffs as instructed as directed. Disp: Rfl: ciprofloxacin 250 mg tablet Take 250 mg by mouth twice daily. Disp: Rfl: acetaminophen-HYDROcodone (VICODIN) 5-500 mg tablet Take 1 tablet by mouth every 6 hours as needed. Disp: Rfl: predniSONE 20 mg tablet Take 20 mg by mouth twice daily. Disp: Rfl: metroNIDAZOLE (FLAGYL) 500 mg tablet Take 500 mg by mouth three times daily. Disp: Rfl: Current hospital medications: heparin 5,000 Units injection 5,000 Units SUBCUTANEOUS q 12 H 0.9% NaCl 3-5 mL 3-5 mL INTRAVENOUS q 12 H NaCl 0.9% iv infusion 100 mL/hr INTRAVENOUS CONTINUOUS ondansetron 4 mg tab(s) (ZOFRAN) 4 mg ORAL q 6 H PRN ondansetron (PF) 4 mg injection (ZOFRAN) 4 mg INTRAVENOUS q 6 H PRN morphine 1-2 mg injection 1-2 mg INTRAVENOUS q 4 H PRN ipratropium-albuterol 3 mL nebulizer solution (DUONEB) 3 mL INHALATION q 4 H PRN Allergies As of Date: 07/06/2018 Allergen Noted Reaction PENICILLIN 07/06/2018 Mental Status Change Fully Assessed 07/06/2018 COMPLETE REVIEW OF SYSTEMS: as per HPI Objective PHYSICAL EXAM: Physical Exam Performed: GENERAL: Alert, no distress, cooperative EYES: EOMI NECK: Supple LUNGS: Unlabored breathing on 2L NC CARDIAC: Rhythm: regular rate and rhythm ABDOMEN: Firm, nondistended, TTP in epigastric region and lower pelvis, no peritoneal signs, no hernias EXTREMITIES: ALBERTS NEURO: Grossly normal cognition, motor function, and cranial nerves III-XII BP 131/86 Pulse 60 Temp (Src) 98.1 (Oral) Resp 18 Wt 98 lb 9.6 oz (44.7kg) SpO2 97% DATA: Diagnostic tests reviewed for today's visit: Most recent labs and imaging results. CBC: No results for input(s): WBC, RBC, HB, HCT, PLT, MCV, MCH, MPV, RDW in the last 24 hours. Coags: No results for input(s): INR, APTT in the last 24 hours. Invalid input(s): PT CMP: No results for input(s): NA, K, CHLOR, CO2, BUN, CREAT, GLUC, TPROT, CA, MG, ALBUMIN, TBILI, ALKPHOS, ALT, AST, ANION in the last 24 hours. Impression/Recommendations 68 year old male with SBO, significant weight loss/malnutrition, concern for SMA syndrome - Medical management per primary - Cont NG LIWS - UGI p for the morning - Would recommend TPN/PICC given nutrition status (nutrition consult placed for recs) - Replace electrolytes as needed (would order BMP/CBC/Mag/Phos daily) - No acute surgical intervention at this point, may need OR later this admission pending imaging/progress Emergency General Surgery Service Pager: For questions or concerns Mon-Fri 6a-5p please page [phone]. After 5pm and on Weekends and Holidays, please page [phone] if in ICU or [phone] if on RNF. Discussed with Dr. Yaneli MD SIGNATURE: Trudy Gomez MD PATIENT NAME: Mark Serrano DATE: July 07, 2018 TIME: 12:50 AM PAGER: see above The patient was seen and examined and I agree with the above residents note which I have changed as necessary. We will start with gastric decompression and after decompression we will see if GI is able to perform EGD to assess for any pathologic reasons for his weight loss and placement of a nasojejunal tube past the level of obstruction. He is not sure if he has been persistently losing weight and says that his weight often fluctuates up and down. In the time until we are able to start enteric feeds we will start with TPN. We will have to monitor closely for refeeding syndrome while we are improving his nutrition status. His upper GI study has not been read yet, but there does seem to be contrast passing the midline. Await final read We also don't have any documentation of his prior operations that we has a large laparotomy scar. We will try to obtain these from his [facility]. Sg Guerrero MD 1:09 PM 07/05/18 EKG (AK,AV,EU,FV,HL,GILES,MM,SP) Observed: Status: F Source: [facility] 07/07/2018 12:29 [facility] OTHER [facility] REPOSITORY NAME : MARK SERRANO PID : [id number] : 1950 Gender : Male Race : ORD : [id number] Procedure Date : Jul 07 2018 00:29 Edit Date : Jul 07 2018 07:47 Diagnosis:NORMAL SINUS RHYTHM LEFT AXIS DEVIATION ABNORMAL ECG NO PREVIOUS ECGS AVAILABLE Confirmed by MD Paniagua Vinay ([id number]) on 07/07/2018 7:47:33 AM Ventricular Rate : 68 BPM Atrial Rate : 68 BPM P-R Interval : 154 ms QRS Duration : 84 ms Q-T Interval : 404 ms QTC Calculation(Bezet) : 429 ms P [place] : 86 degrees R [place] : -72 degrees T [place] : 75 degrees Test Reason : Check QT Location : 71 : [id number] Overread By : MD Paniagua Vinay Editted By : MD Paniagua Vinay Referred By : PRITI MEAD Acquired by : Leonor Glover HISTORY PHYSICAL Observed: 07/07/2018 Status: COMPLETED Source: [place] 12:02 AM [facility] OTHER CAMPUS REPOSITORY HNO ID: [id number] Author: Priti Gracia) GOKUL Mead.VIANNEY Service: Hospital Medicine Author Type: Nurse Practitioner Type: HANDP Filed: 07/07/2018 12:48 AM Note Text: Attestation signed by Aj Pro at 07/07/2018 12:56 AM Seen and examined by me. Agree with STAFF SONOGRAPHER. The patient will SBO likely needs to have supportive care and be seen by Surgery. Allow NG to work. As for his COPD, I'd like to hold off on steroids if we can and simply monitor his sats, give inhalers, and respiratoy hygiene. Answered patient questions. [facility] MEDICINE HISTORY AND PHYSICAL EXAM SERVICE DATE: 07/07/2018 SERVICE TIME: 12:03 AM Primary Care Physician: Jacqui Cadet MD NIGHT AND WEEKEND COVERAGE: From 7am - 7pm, please call Sound Attending After 7pm, please call cross cover pager #[phone] Subjective CHIEF COMPLAINT: Abdominal Pain HPI: This is a 68 year old male with a PMHx COPD, Crohn's, Depression, HTN that presents with complaints of abdominal pain. Pt starting having 10/10 abdominal pain, nausea, and vomiting that started yesterday at 1pm. Pt's last BM was 2 days ago. He reports diarrhea but this is his baseline. Reports history of SBO x 2, bowel resection in 2005. Denies fever, chills, recent illness, CP, SOB, cough, dysuria, hematuria, blood in stools. ED Course: CT abd reveals distended stomach and proximal duodenum, ? SMA syndrome. WBC 5.85, hgb 14.3, hct 43.9, Na 141, K 3.4, BUN 27, Creatinine 2.32, Lactic 1.0, AST 19, ALT 32, Alk Phos 103, Lipase 390. Treated with morphine, zofran, IV fluids. PAST MEDICAL HISTORY Diagnosis Date - Arthritis - COPD (chronic obstructive pulmonary disease) (HCC) - Crohn's disease (HCC) - Depression - Diarrhea - Emphysema - Hypertension - IBS (irritable bowel syndrome) - Unspecified essential hypertension PAST SURGICAL HISTORY Procedure Laterality Date - COLONOSCOP W/ OR W/O [facility] SPEC Colonoscopy x 4 - PAST SURGICAL HISTORY OF 2003 lower bowel surgery - PAST SURGICAL HISTORY OF dental surgery - REMOVAL OF TONSILS,<12 Y/O Tonsillectomy FAMILY HISTORY Problem Relation Age of Onset - other (black lung) Father - other (lung disease) Brother - other (polio) Sister - other (hip problems) Daughter defects Social History Substance Use Topics - Smoking status: Former Smoker - Smokeless tobacco: Never Used - Alcohol use No HOME MEDICATIONS: Prescriptions Prior to Admission: loperamide HCl (IMODIUM ORAL) Take by mouth once daily. Disp: Rfl: albuterol HFA (VENTOLIN HFA) 90 mcg/actuation inhaler Inhale 2 Puffs as instructed as directed. Disp: Rfl: ciprofloxacin 250 mg tablet Take 250 mg by mouth twice daily. Disp: Rfl: acetaminophen-HYDROcodone (VICODIN) 5-500 mg tablet Take 1 tablet by mouth every 6 hours as needed. Disp: Rfl: predniSONE 20 mg tablet Take 20 mg by mouth twice daily. Disp: Rfl: metroNIDAZOLE (FLAGYL) 500 mg tablet Take 500 mg by mouth three times daily. Disp: Rfl: ALLERGIES Allergen Reactions - Penicillin Mental Status Change Social history: Lives at home with friend, Independent with ADL REVIEW OF SYSTEM: PAIN ASSESSMENT: Negative for pain, history of chronic pain, or current treatment for a chronic pain condition. GENERAL: No weight loss, malaise or fevers HEENT: Negative for frequent or significant headaches, No changes in hearing or vision, no nose bleeds or other nasal problems NECK: Negative for lumps, goiter, pain and significant neck swelling RESPIRATORY: Negative for cough, hemoptysis, wheezing, COPD, dyspnea or shortness of breath CARDIOVASCULAR: Negative for chest pain, leg swelling, hypertension, CHF or palpitations GI: + abdominal pain, nausea, vomiting, diarrhea : No history of dysuria, frequency or incontinence MUSCULOSKELETAL: Negative for joint pain or swelling, back pain or muscle pain SKIN: Negative for lesions, rash, and itching ENDOCRINE: Negative for cold or heat intolerance, polyuria, polydipsia and goiter NEURO: No history of headaches, syncope, paralysis, seizures or tremors Objective PHYSICAL EXAM: BP 131/86 Pulse 60 Temp (Src) 98.1 (Oral) Resp 18 Wt 98 lb 9.6 oz (44.7kg) SpO2 97% GENERAL: Well appearing, alert, in no acute distress, cachetic SKIN: Skin color, texture, turgor normal, no suspicious rashes or lesions HEAD: Normocephalic, atraumatic EYES: Anicteric sclera. Pupils are equally round and reactive to light. Extraocular movements are intact. EARS: External ears normal, canals clear NOSE/SINUSES: Nares normal, septum midline, mucosa normal, no drainage or sinus tenderness OROPHARYNX: Lips, mucosa, and tongue normal, teeth and gums normal, oropharynx normal NECK: Supple, no adenopathy; thyroid symmetric, normal size, no bruits LUNGS: Clear to auscultation with no wheezes, rales or rhonchi. No retractions. HEART: RRR without murmur, gallop, or rubs. No ectopy ABDOMEN: Abdomen soft, Moderate TTP, no guarding, no rebound tenderness, hypoactive BS, No masses, organomegaly. Healed midline abdominal incision noted. EXTREMITIES: No deformities, edema, skin discoloration, clubbing or cyanosis. Good capillary refill. MUSCULOSKELETAL: No joint swelling, deformity, or tenderness PULSES: Normal NEURO: AANDO x 3, mood/affect appropriate/ 5/5 strength BUE/BLE, Sensation grossly intact. DATA: Diagnostic tests reviewed for today's visit: Most recent labs and imaging results. CBC: No results for input(s): WBC, RBC, HB, HCT, PLT, MCV, MCH, MPV, RDW in the last 24 hours. Coags: No results for input(s): INR, APTT in the last 24 hours. Invalid input(s): PT BMP: No results for input(s): NA, K, CHLOR, CO2, BUN, CREAT, GLUC in the last 24 hours. CMP: No results for input(s): NA, K, CHLOR, CO2, BUN, CREAT, GLUC, TPROT, CA, MG, ALBUMIN, TBILI, ALKPHOS, ALT, AST, ANION in the last 24 hours. Cardiac Enzymes: No results for input(s): CK, MB, CKMB, TROPT in the last 24 hours. Liver Function, Amylase, Lipase: No results for input(s): TPROT, ALB, ALT, AST, ALKPHOS, TBILI, AMYLASE, LIPASE, LACTATE in the last 24 hours. MG/PHOS: No results for input(s): MG, P in the last 24 hours. Renal Panel: No results for input(s): ALBUMIN, CREAT, BUN, GLUC, CA, P, CHLOR, K, CO2, NA in the last 24 hours. Heme: No results for input(s): RETICP, ABSRETIC, LD, ROCKY, FE, TIBC, TRANSFERSAT in the last 24 hours. Assessment/Plan Principle Problem: 1. SBO POA: yes Assessment/Plan: maintain NGT to LIWS, surgery consult, NPO, IVF, IV morphine pain control, IV zofran for nausea control. Active Problems: 2. SALINA on CKD POA: yes Assessment/Plan: IVF, monitor creatinine closely, avoid nephrotoxic medications 3. Hypertension POA: Yes Assessment AND Plan: Monitor BP trends, will treat with IV antihypertensives if necessary while patient NPO. 4. COPD (chronic obstructive pulmonary disease) (HCC) POA: Yes Assessment AND Plan: verify home inhalers with patient pharmacy, jennifer, check cxray as patient requiring 2L oxygen at this time, will hold off on steroids at this time as patient is not SOB, no obvious signs of exacerbation. Resolved Problems: * No resolved hospital problems. * VTE Prophylaxis: Heparin 5000 units Sub Q BID Disposition: Home when medically cleared Plan of care discussed with: Attending, Patient, RN SIGNATURE: Priti Mead CNP PATIENT NAME: Mark Serrano DATE: July 07, 2018 TIME: 12:03 AM PAGER/CONTACT #: [phone] EMERGENCY DEPARTMENT Observed: 07/06/2018 Status: F Source: [place] SUMMARY 11:44 PM [facility] REPOSITORY [facility] Medical Records Department [address] [place] [place] [id number] Emergency Department Summary 07/06/18 1642 MR#: [id number] Acct: [id number] Name: MARK SERRANO Rep #: [id number] : 1950 68 From: Channing Manuel PCP: Marcos ABRAHAM,Jalen Mary Status: DEP ER - ER Visit Summary Date of Service: 07/06/18 Chief Complaint: Abdominal pain, vomiting History of Present Illness: The patient is a 68 M general abdominal pain with vomiting since 1 PM yesterday. Vomited total 16 times, states charcoal color. 1 diarrhea episodes prior to abdominal pain. Decreased flatus. Chills. History of bowel obstruction 2 in the past. States last time 2005 he had a bowel resection however states that Crohn's disease also. Surgery was done in [place]. Does not follow general surgeon. No other abdominal surgeries. No urinary symptoms. Denies any blood in the stools. Physical Examination: General: Alert and oriented 3, no acute distress HEENT: Normocephalic, atraumatic. Dry mucosa membranes Neck: supple, nontender. Cardiovascular: Regular rate and rhythm, no murmurs Respiratory: Normal breath sounds, symmetric, no distress Abdomen: Soft, generalized tenderness without guarding or rebound, nondistended, hypoactive bowel sounds. Midline abdominal healed incision. Extremities: Nontender, no edema, pulses intact 4 Neuro: no focal neurological deficits. Test Results: White count 5.8. Hemoccult 14.3. Creatinine 2.32. Potassium 3.4. Lipase 390. Liver enzymes normal. Lactic acid 1.0. CT scan abdomen pelvis dilated stomach and duodenum. This transition point proximal aorta reported by radiology questionable possible SMA syndrome. Emergency Department Course and Treatment: Patient history evaluation concerns for bowel obstruction. Workup initiated. Given morphine and Zofran. Labs stable. CT scan noted dilated proximal bowel. NG tube ordered. There is questionable SMA syndrome per radiology read. Lactic acid was normal. I did discuss with covering surgeon Dr. Rivas who requests transfer to tertiary center secondary to this. Spoke with [facility] excepted to surface Dr. Santos. Patient creatinine is chronic, however this is slightly more elevated than previous range from 1.7-2.0. He is given IV fluids. Treatment Plan: [] Disposition: Transfer [facility] Impression: 1. Abdominal pain 2. Small bowel obstruction 3. Possible SMA syndrome 4. Chronic kidney disease This note was generated with [employer] dictation software. It may contain incorrect words, spelling, and punctuation that were not noted in review of the chart prior to signing ED Disposition - Plan for ED Patient: Disposition: [facility] Chief Complaint: Abd Pain Diagnosis: CKD (chronic kidney disease) stage 4, GFR 15-29 ml/min, Small bowel obstruction, Possible SMA syndrome Referrals: Jalen Rodríguez Chi, MD [Primary Care Provider] - What to do if you have Problems For any increased pain, shortness of breath, bleeding, nausea or vomiting, chest pain, or any unexpected problems, contact your Primary Care Provider. Call [facility] ([phone]) or report to the closest Emergency Room. Call 911 if necessary. 07/06/18 2344 <Electronically signed by Channing Manuel> Date Channing Manuel Cosigner Signature (If Indicated): Date CC: Jalen Rodríguez MD ABDOMEN SINGLE VIEW Observed: 07/06/2018 Status: F Source: [place] (PORTABLE) 6:43 PM [facility] REPOSITORY [facility] Imaging Services [address] [place] [id number] Abdomen Single View (Portable) MR#: [id number] Acct: [id number] Name: MARK SERRANO Rep #: [id number] : 1950 M 68 From: Shanan Aguillon MD PCP: Jalen Rodríguez MD, Chi Status: REG ER Study: Abdomen Single View (Portable) Date of Exam: 07/06/18 Exam# [id number] Ordering Dr: Channing Ruiz DO STUDY: X-RAY - ABDOMEN/PELVIS REASON FOR EXAM: Male, 68 years old. NG tube placement. TECHNIQUE: Single supine view of the abdomen. COMPARISON: None. FINDINGS: Normal visualized lung bases. Nasogastric tube is identified with the terminus projected over the right sacral ala. The tube projects beyond the visualized gastric bubble. Findings are not consistent with gastric placement. There is a nonobstructive bowel gas pattern. Soft tissues and bony structures are unremarkable. RAD/Abdomen Single View (Portable) IMPRESSION: NG tube projects over the pelvis, and is not consistent with gastric placement. Electronically Signed: Shanna Aguillon MD at 21:40 EDT Tel , Service support , CC: Jalen Rodríguez MD; Channing Ruiz World Travel Counselor: Signed LACTIC ACID Collected: 07/06/2018 Status: F Source: [place] 6:35 PM [facility] REPOSITORY TYPE CODE TESTS RESULT OUT OF RANGE REFERENCE UNITS LAB L503.6005 0.4-2.0 mmol/L Normal LACTIC ACID 1.0 Performed By: #### L503.6005 #### [facility] [address] [place], [address] ABDOMEN/PELVIS WITHOUT Observed: 07/06/2018 Status: F Source: [place] CONT 4:42 PM [facility] REPOSITORY [facility] Imaging Services [address] [place] [address] Abdomen/Pelvis without Cont MR#: [id number] Acct: [id number] Name: MARK SERRANO Rep #: [id number] : 1950 M 68 From: Shanna Aguillon MD PCP: Jalen Rodríguez MD, Chi Status: REG ER Study: Abdomen/Pelvis without Cont Date of Exam: 07/06/18 Exam# [id number] Ordering Dr: Channing Ruiz DO STUDY: CT ABDOMEN AND PELVIS WITHOUT CONTRAST REASON FOR EXAM: Male, 68 years old. Abdominal pain with vomiting. History of Crohn's disease, partial colectomy. RADIATION DOSAGE (If Supplied By Facility): CTDIvol = ( 6.04 ) mGy, DLP = ( 271.80 ) mGycm TECHNIQUE: Transaxial images were obtained from the dome of the diaphragm to the symphysis pubis without oral contrast, and without intravenous contrast. Sagittal and coronal images were reconstructed. Individualized dose optimization techniques were used for this CT. COMPARISON: 08/14/2016. FINDINGS: Calcified granuloma is noted in the right lung base. Lung bases appear hyperinflated with centrilobular emphysema. The visualized portions of the heart are within normal limits. Normal liver. Normal gallbladder and extrahepatic biliary system. There are multiple benign calcified granulomata of the spleen. Normal pancreas. Normal bilateral adrenal glands. The aorta is ectatic, measuring up to 2.5 cm in the mid abdominal segment. There is moderate atherosclerotic calcification. Multiple nonobstructing renal stones are noted, greater on the right. There is no hydronephrosis. The stomach and proximal duodenum are markedly distended, with abrupt transition at the transverse segment crossing the aorta. Findings are similar to the prior study. There is no obvious mass or bowel wall thickening. Findings raise question of SMA syndrome. Although this is atypical in male or older patients, the patient may be predisposed based on cachexia. Distal small bowel and colon are normal in caliber. There is no free fluid or free air. Bladder is partially distended and grossly unremarkable. Normal abdominal wall. Normal osseous structures. CT/Abdomen/Pelvis without Cont IMPRESSION: 1. Distended stomach and proximal duodenum with transition in the transverse (3rd) segment, similar to the prior study. Question SMA syndrome. 2. Nonobstructing renal stones. 3. Ectatic mid abdominal aorta. 4. Old healed granulomatous disease. Electronically Signed: Shanna Aguillon MD at 18:26 EDT Tel , Service support , CC: Jalen Rodríguez MD; Channing Ruiz World Travel Counselor: Signed CBC W/DIFF, AUTOMATED Collected: 07/06/2018 Status: F Source: [place] 4:37 PM [facility] REPOSITORY TYPE CODE TESTS RESULT OUT OF RANGE REFERENCE UNITS LAB L100.1000 4.4-11.0 K/mm3 Normal WBC 5.8 LAB L100.1200 4.6-6.2 M/mm3 Normal RBC 4.91 LAB L100.1300 13.0-16.5 g/dl Normal HGB 14.3 LAB L100.1400 40-54 % Normal HCT 43.9 LAB L100.1500 80-94 fL Normal MCV 89.4 LAB L100.1600 27.0-32.0 pg Normal MCH 29.1 LAB L100.1700 32-36 g/gl Normal MCHC 32.6 LAB L100.1810 11.6-14.6 % Normal RDW CV 13.7 LAB L100.1820 35.1-43.9 fl High RDW SD 44.3 LAB L100.1900 150-450 K/mm3 Normal PLT 162 LAB L100.2000 6.2-12.0 fl Normal MPV 10.7 LAB L100.2100 47-70 % High NEUT% 82.7 LAB L100.2200 19-41 % Low LY% 10.8 LAB L100.2300 0-10 % Normal MONO% 5.3 LAB L100.2400 0-5 % Normal EO% 0.9 LAB L100.2500 0-1 % Normal BASO% 0.3 LAB L100.2550 0.0-0.9 % Normal IM GRAN % 0.000 Result Comment: IG% - Immature Granulocytes (promyelocytes, myelocytes and metamyelocytes) > 1% indicates that a LEFT SHIFT is Present. LAB L100.2620 2.0-7.7 X10 3/uL Normal Absolute Neut 4.8 LAB L100.2720 0.83-4.51 X10 3/ul Low Absolute Lymph 0.63 Performed By: #### L100.0100 #### [facility] [place], [address] COMPREHENSIVE METABOLIC Collected: 07/06/2018 Status: F Source: [place] [facility] 4:37 PM [facility] REPOSITORY TYPE CODE TESTS RESULT OUT OF RANGE REFERENCE UNITS LAB L501.0100 74-106 mg/dL High GLU 139 Result Comment: Fasting Glucose result greater than or equal to 126 mg/dL suggests DIABETES MELLITUS per A.D.A. criteria. Please note revised GLUCOSE reference range effective 2017. LAB L501.1000 7-18 mg/dL High BUN 27 LAB L501.1100 0.70-1.30 mg/dL High CREAT,SERUM 2.32 Result Comment: The validity of the calculated GFR AND GFRAA in patients over 70 years has not been determined. Clinical correlation is essential. LAB L501.1110 >60 mL/min Low EST GFR 30 Result Comment: Non- GFR Calc LAB L501.1115 >60 mL/min Low EST GFR - AA 36 Result Comment: GFR Calc LAB L501.1255 ml/min Normal Estimated CRCL 18.06 LAB L501.1300 10-20 RATIO Normal BUN/CRE 11.6 LAB L501.1500 6.4-8. g/dL Normal 2 T PROT 7.9 LAB L501.1800 3.2-5. g/dL Normal 0 ALB 4.4 LAB L501.1950 2.2-4. g/dL Normal 2 GLOB 3.5 LAB L501.2000 0.9-2. RATIO Normal 4 A/G 1.3 LAB L501.2200 8.5-10 mg/dL Normal .1 CA 10.0 LAB L501.4100 15-37 U/L Normal AST 19 Result Comment: Slight Hemolysis, Result may be falsely increased. LAB L501.4305 45-117 U/L Normal ALK P 103 LAB L501.4405 16-61 U/L Normal ALT 32 LAB L501.4600 0.20-1.00 mg/dL High T BILI 1.20 LAB L501.5300 136-145 mmol/L Normal NA 141 LAB L501.5600 3.5-5.1 mmol/L Low K 3.4 Result Comment: Slight Hemolysis, Result may be falsely increased. LAB L501.5900 98-107 mmol/L Low CL 97 LAB L501.6100 21.0-32.0 mmol/L High CO2 34.0 LAB L501.6200 5-15 Normal GAP 10 Performed By: #### L500.4050, L501.2450 #### [facility] [address] [place], [address] LIPASE Collected: 07/06/2018 Status: F Source: [place] 4:37 PM [facility] REPOSITORY TYPE CODE TESTS RESULT OUT OF RANGE REFERENCE UNITS LAB L501.2450 73-393 U/L Normal LIPASE 390 Performed By: #### L500.4050, L501.2450 #### [facility] [address] [place], [address] HOSP Observed: 07/06/2018 Status: COMPLETED Source: [place] 12:00 AM CLINIC OTHER CAMPUS REPOSITORY Patient:Mark Serrano MRN: <[id number]> Height:5' 5(1.651 m) Weight:95 lb 3.8 oz (43.2 kg) Outpatient Medications as of 07/11/18: atorvastatin (LIPITOR) 20 mg tablet budesonide-formoterol (SYMBICORT) 160-4.5 mcg/actuation inhaler lisinopril (ZESTRIL, PRINIVIL) 5 mg tablet loperamide (IMODIUM) 2 mg cap(s) Mesalamine (PENTASA) 500 mg CR capsule DALIRESP 500 mcg tab SPIRIVA WITH HANDIHALER 18 mcg inhalation capsule melatonin 10 mg tab loperamide HCl (IMODIUM ORAL) ciprofloxacin 250 mg tablet acetaminophen-HYDROcodone (VICODIN) 5-500 mg tablet predniSONE 20 mg tablet metroNIDAZOLE (FLAGYL) 500 mg tablet albuterol HFA (VENTOLIN HFA) 90 mcg/actuation inhaler Admission/Clinic Administered Medications as of 07/11/18: Parenteral Nutrition - Adult lactated ringers infusion meperidine (PF) 12.5 mg injection (DEMEROL) fentaNYL 50 mcg/mL 50 mcg injection (SUBLIMAZE) ondansetron (PF) 4 mg injection (ZOFRAN) Parenteral Nutrition - Adult acetaminophen 650 mg suppository (TYLENOL) phenol 1 Ambia (CHLORASEPTIC) fluticasone-vilanterol 100-25 mcg/dose 1 Inhalation (BREO ELLIPTA) ondansetron 4 mg tab(s) (ZOFRAN) ondansetron (PF) 4 mg injection (ZOFRAN) promethazine 12.5 mg tab(s) (PHENERGAN) prochlorperazine 5 mg injection (COMPAZINE) heparin 5,000 Units injection 0.9% NaCl 3-5 mL morphine 1-2 mg injection ipratropium-albuterol 3 mL nebulizer solution (DUONEB) pantoprazole 40 mg injection (PROTONIX) 0.9% NaCl 10 mL 0.9% NaCl 20 mL Problem List: Unspecified essential hypertension [I10] Arthritis [M19.90] Emphysema [J43.9] IBS (irritable bowel syndrome) [K58.9] Diarrhea [R19.7] Crohn's disease (HCC) [K50.90] Hypertension [I10] COPD (chronic obstructive pulmonary disease) ([facility]) [J44.9] Bowel obstruction ([facility]) [K56.609] SBO (small bowel obstruction) ([facility]) [K56.609] Nicotine use disorder, F17.2 [F17.200] Vomiting [R11.10] Allergies: Penicillin Date Verified: 07/11/18 Lab Values Lab Value Units Date High Low POTA* 3.9 mEq/L 07/11/2018 5.1 3.5 VALENTÍN* 31.8 % 07/08/2018 51.0 40.1 Progress Notes (): Priti Mead, CAR STOWER, [employer]CAR STOWER 07/07/2018 12:48 AM Attested Attestation signed by Aj Pro at 07/07/2018 12:56 AM Seen and examined by me. Agree with STAFF SONOGRAPHER. The patient will SBO likely needs to have supportive care and be seen by Surgery. Allow NG to work. As for his COPD, I'd like to hold off on steroids if we can and simply monitor his sats, give inhalers, and respiratoy hygiene. Answered patient questions. DEPARTMENT OF HOSPITAL MEDICINE HISTORY AND PHYSICAL EXAM SERVICE DATE: 07/07/2018 SERVICE TIME: 12:03 AM Primary Care Physician: Jacqui Cadet MD NIGHT AND WEEKEND COVERAGE: From 7am - 7pm, please call Sound Attending After 7pm, please call cross cover pager #[phone] Subjective CHIEF COMPLAINT: Abdominal Pain HPI: This is a 68 year old male with a PMHx COPD, Crohn's, Depression, HTN that presents with complaints of abdominal pain. Pt starting having 10/10 abdominal pain, nausea, and vomiting that started yesterday at 1pm. Pt's last BM was 2 days ago. He reports diarrhea but this is his baseline. Reports history of SBO x 2, bowel resection in 2005. Denies fever, chills, recent illness, CP, SOB, cough, dysuria, hematuria, blood in stools. ED Course: CT abd reveals distended stomach and proximal duodenum, ? SMA syndrome. WBC 5.85, hgb 14.3, hct 43.9, Na 141, K 3.4, BUN 27, Creatinine 2.32, Lactic 1.0, AST 19, ALT 32, Alk Phos 103, Lipase 390. Treated with morphine, zofran, IV fluids. PAST MEDICAL HISTORY Diagnosis Date - Arthritis - COPD (chronic obstructive pulmonary disease) (HCC) - Crohn's disease (HCC) - Depression - Diarrhea - Emphysema - Hypertension - IBS (irritable bowel syndrome) - Unspecified essential hypertension PAST SURGICAL HISTORY Procedure Laterality Date - COLONOSCOP W/ OR W/O [facility] SPEC Colonoscopy x 4 - PAST SURGICAL HISTORY OF 2003 lower bowel surgery - PAST SURGICAL HISTORY OF dental surgery - REMOVAL OF TONSILS,<12 Y/O Tonsillectomy FAMILY HISTORY Problem Relation Age of Onset - other (black lung) Father - other (lung disease) Brother - other (polio) Sister - other (hip problems) Daughter defects Social History Substance Use Topics - Smoking status: Former Smoker - Smokeless tobacco: Never Used - Alcohol use No HOME MEDICATIONS: Prescriptions Prior to Admission: loperamide HCl (IMODIUM ORAL) Take by mouth once daily. Disp: Rfl: albuterol HFA (VENTOLIN HFA) 90 mcg/actuation inhaler Inhale 2 Puffs as instructed as directed. Disp: Rfl: ciprofloxacin 250 mg tablet Take 250 mg by mouth twice daily. Disp: Rfl: acetaminophen-HYDROcodone (VICODIN) 5-500 mg tablet Take 1 tablet by mouth every 6 hours as needed. Disp: Rfl: predniSONE 20 mg tablet Take 20 mg by mouth twice daily. Disp: Rfl: metroNIDAZOLE (FLAGYL) 500 mg tablet Take 500 mg by mouth three times daily. Disp: Rfl: ALLERGIES Allergen Reactions - Penicillin Mental Status Change Social history: Lives at home with friend, Independent with ADL REVIEW OF SYSTEM: PAIN ASSESSMENT: Negative for pain, history of chronic pain, or current treatment for a chronic pain condition. GENERAL: No weight loss, malaise or fevers HEENT: Negative for frequent or significant headaches, No changes in hearing or vision, no nose bleeds or other nasal problems NECK: Negative for lumps, goiter, pain and significant neck swelling RESPIRATORY: Negative for cough, hemoptysis, wheezing, COPD, dyspnea or shortness of breath CARDIOVASCULAR: Negative for chest pain, leg swelling, hypertension, CHF or palpitations GI: + abdominal pain, nausea, vomiting, diarrhea : No history of dysuria, frequency or incontinence MUSCULOSKELETAL: Negative for joint pain or swelling, back pain or muscle pain SKIN: Negative for lesions, rash, and itching ENDOCRINE: Negative for cold or heat intolerance, polyuria, polydipsia and goiter NEURO: No history of headaches, syncope, paralysis, seizures or tremors Objective PHYSICAL EXAM: BP 131/86 Pulse 60 Temp (Src) 98.1 (Oral) Resp 18 Wt 98 lb 9.6 oz (44.7kg) SpO2 97% GENERAL: Well appearing, alert, in no acute distress, cachetic SKIN: Skin color, texture, turgor normal, no suspicious rashes or lesions HEAD: Normocephalic, atraumatic EYES: Anicteric sclera. Pupils are equally round and reactive to light. Extraocular movements are intact. EARS: External ears normal, canals clear NOSE/SINUSES: Nares normal, septum midline, mucosa normal, no drainage or sinus tenderness OROPHARYNX: Lips, mucosa, and tongue normal, teeth and gums normal, oropharynx normal NECK: Supple, no adenopathy; thyroid symmetric, normal size, no bruits LUNGS: Clear to auscultation with no wheezes, rales or rhonchi. No retractions. HEART: RRR without murmur, gallop, or rubs. No ectopy ABDOMEN: Abdomen soft, Moderate TTP, no guarding, no rebound tenderness, hypoactive BS, No masses, organomegaly. Healed midline abdominal incision noted. EXTREMITIES: No deformities, edema, skin discoloration, clubbing or cyanosis. Good capillary refill. MUSCULOSKELETAL: No joint swelling, deformity, or tenderness PULSES: Normal NEURO: AANDO x 3, mood/affect appropriate/ 5/5 strength BUE/BLE, Sensation grossly intact. DATA: Diagnostic tests reviewed for today's visit: Most recent labs and imaging results. CBC: No results for input(s): WBC, RBC, HB, HCT, PLT, MCV, MCH, MPV, RDW in the last 24 hours. Coags: No results for input(s): INR, APTT in the last 24 hours. Invalid input(s): PT BMP: No results for input(s): NA, K, CHLOR, CO2, BUN, CREAT, GLUC in the last 24 hours. CMP: No results for input(s): NA, K, CHLOR, CO2, BUN, CREAT, GLUC, TPROT, CA, MG, ALBUMIN, TBILI, ALKPHOS, ALT, AST, ANION in the last 24 hours. Cardiac Enzymes: No results for input(s): CK, MB, CKMB, TROPT in the last 24 hours. Liver Function, Amylase, Lipase: No results for input(s): TPROT, ALB, ALT, AST, ALKPHOS, TBILI, AMYLASE, LIPASE, LACTATE in the last 24 hours. MG/PHOS: No results for input(s): MG, P in the last 24 hours. Renal Panel: No results for input(s): ALBUMIN, CREAT, BUN, GLUC, CA, P, CHLOR, K, CO2, NA in the last 24 hours. Heme: No results for input(s): RETICP, ABSRETIC, LD, ROCKY, FE, TIBC, TRANSFERSAT in the last 24 hours. Assessment/Plan Principle Problem: 1. SBO POA: yes Assessment/Plan: maintain NGT to LIWS, surgery consult, NPO, IVF, IV morphine pain control, IV zofran for nausea control. Active Problems: 2. SALINA on CKD POA: yes Assessment/Plan: IVF, monitor creatinine closely, avoid nephrotoxic medications 3. Hypertension POA: Yes Assessment AND Plan: Monitor BP trends, will treat with IV antihypertensives if necessary while patient NPO. 4. COPD (chronic obstructive pulmonary disease) (HCC) POA: Yes Assessment AND Plan: verify home inhalers with patient pharmacy, jennifer, check cxray as patient requiring 2L oxygen at this time, will hold off on steroids at this time as patient is not SOB, no obvious signs of exacerbation. Resolved Problems: * No resolved hospital problems. * VTE Prophylaxis: Heparin 5000 units Sub Q BID Disposition: Home when medically cleared Plan of care discussed with: Attending, Patient, RN SIGNATURE: Priti Mead CNP PATIENT NAME: Mark Serrano DATE: July 07, 2018 TIME: 12:03 AM PAGER/CONTACT #: [phone] Sg Guerrero MD 07/07/2018 1:42 PM Signed CONSULT: EMERGENCY GENERAL SURGERY SERVICE SERVICE DATE: 07/07/2018 SERVICE TIME: 12:50 AM REASON FOR CONSULT: SBO REQUESTING PHYSICIAN: Priti Arias APRN/[facility] PHYSICIAN: Jacqui Cadet MD Subjective Mr. Serrano is a 68 year old male who presents with two days of increased abdominal pain. Patient states his pain started 2 days prior. He had a BM that morning and has not been able to pass any flatus or have BMs since. He endorses nausea and emesis during this time (nonbloody, but dark per patient). He denies fevers, chills, SOB, CP. Per patient, he has had 30-40 lbs weight loss over the past year and 10-15 lbs weight loss in the last couple of weeks. He had a colonoscopy in 2009 he believes and said there were only benign polyps found at the time. He has had 2 prior SBOs and an ex lap with SBR 2003. He denies history of colon CA in himself or family. Patient seen at outside hospital and CT A/P showed: distended stomach and proximal duodenum with transition in the transverse (3rd) segment, similar to the prior study (08/14/2016). Abrupt transition at the transverse segment crossing the aorta. Concern for SMA syndrome mentioned in read. Hx of Crohn's, IBS, Emphysema, chronic diarrhea. CT Abdomen/Pelvis: Distended stomach and proximal duodenum with transition in the transverse (3rd) segment, similar to the prior study. Question SMA syndrome. Nonobstructing renal stones. Ectatic mid abdominal aorta. Old healed granulomatous disease. PAST MEDICAL HISTORY Diagnosis Date - Arthritis - COPD (chronic obstructive pulmonary disease) (HCC) - Crohn's disease (HCC) - Depression - Diarrhea - Emphysema - Hypertension - IBS (irritable bowel syndrome) - Unspecified essential hypertension PAST SURGICAL HISTORY Procedure Laterality Date - COLONOSCOP W/ OR W/O [facility] SPEC Colonoscopy x 4 - PAST SURGICAL HISTORY OF 2003 lower bowel surgery - PAST SURGICAL HISTORY OF dental surgery - REMOVAL OF TONSILS,<12 Y/O Tonsillectomy FAMILY HISTORY Problem Relation Age of Onset - other (black lung) Father - other (lung disease) Brother - other (polio) Sister - other (hip problems) Daughter defects Social History Substance Use Topics - Smoking status: Former Smoker - Smokeless tobacco: Never Used - Alcohol use No Prescriptions Prior to Admission: loperamide HCl (IMODIUM ORAL) Take by mouth once daily. Disp: Rfl: albuterol HFA (VENTOLIN HFA) 90 mcg/actuation inhaler Inhale 2 Puffs as instructed as directed. Disp: Rfl: ciprofloxacin 250 mg tablet Take 250 mg by mouth twice daily. Disp: Rfl: acetaminophen-HYDROcodone (VICODIN) 5-500 mg tablet Take 1 tablet by mouth every 6 hours as needed. Disp: Rfl: predniSONE 20 mg tablet Take 20 mg by mouth twice daily. Disp: Rfl: metroNIDAZOLE (FLAGYL) 500 mg tablet Take 500 mg by mouth three times daily. Disp: Rfl: Current hospital medications: heparin 5,000 Units injection 5,000 Units SUBCUTANEOUS q 12 H 0.9% NaCl 3-5 mL 3-5 mL INTRAVENOUS q 12 H NaCl 0.9% iv infusion 100 mL/hr INTRAVENOUS CONTINUOUS ondansetron 4 mg tab(s) (ZOFRAN) 4 mg ORAL q 6 H PRN ondansetron (PF) 4 mg injection (ZOFRAN) 4 mg INTRAVENOUS q 6 H PRN morphine 1-2 mg injection 1-2 mg INTRAVENOUS q 4 H PRN ipratropium-albuterol 3 mL nebulizer solution (DUONEB) 3 mL INHALATION q 4 H PRN Allergies As of Date: 07/06/2018 Allergen Noted Reaction PENICILLIN 07/06/2018 Mental Status Change Fully Assessed 07/06/2018 COMPLETE REVIEW OF SYSTEMS: as per HPI Objective PHYSICAL EXAM: Physical Exam Performed: GENERAL: Alert, no distress, cooperative EYES: EOMI NECK: Supple LUNGS: Unlabored breathing on 2L NC CARDIAC: Rhythm: regular rate and rhythm ABDOMEN: Firm, nondistended, TTP in epigastric region and lower pelvis, no peritoneal signs, no hernias EXTREMITIES: ALBERTS NEURO: Grossly normal cognition, motor function, and cranial nerves III-XII BP 131/86 Pulse 60 Temp (Src) 98.1 (Oral) Resp 18 Wt 98 lb 9.6 oz (44.7kg) SpO2 97% DATA: Diagnostic tests reviewed for today's visit: Most recent labs and imaging results. CBC: No results for input(s): WBC, RBC, HB, HCT, PLT, MCV, MCH, MPV, RDW in the last 24 hours. Coags: No results for input(s): INR, APTT in the last 24 hours. Invalid input(s): PT CMP: No results for input(s): NA, K, CHLOR, CO2, BUN, CREAT, GLUC, TPROT, CA, MG, ALBUMIN, TBILI, ALKPHOS, ALT, AST, ANION in the last 24 hours. Impression/Recommendations 68 year old male with SBO, significant weight loss/malnutrition, concern for SMA syndrome - Medical management per primary - Cont NG LIWS - UGI p for the morning - Would recommend TPN/PICC given nutrition status (nutrition consult placed for recs) - Replace electrolytes as needed (would order BMP/CBC/Mag/Phos daily) - No acute surgical intervention at this point, may need OR later this admission pending imaging/progress Emergency General Surgery Service Pager: For questions or concerns Mon-Wed 6a-5p please page [phone]. After 5pm and on Weekends and Holidays, please page [phone] if in ICU or [phone] if on RNF. Discussed with Dr. Yaneli MD SIGNATURE: Trudy Gmoez MD PATIENT NAME: Mark Serrano DATE: July 07, 2018 TIME: 12:50 AM PAGER: see above The patient was seen and examined and I agree with the above residents note which I have changed as necessary. We will start with gastric decompression and after decompression we will see if GI is able to perform EGD to assess for any pathologic reasons for his weight loss and placement of a nasojejunal tube past the level of obstruction. He is not sure if he has been persistently losing weight and says that his weight often fluctuates up and down. In the time until we are able to start enteric feeds we will start with TPN. We will have to monitor closely for refeeding syndrome while we are improving his nutrition status. His upper GI study has not been read yet, but there does seem to be contrast passing the midline. Await final read We also don't have any documentation of his prior operations that we has a large laparotomy scar. We will try to obtain these from his [facility]. Sg Guerrero MD 1:09 PM 07/05/18 Previous Version Marva Manzano RN, RN 07/07/2018 2:39 AM Signed Nursing Progress Note Patient Name: Mark Serrano Patient Location: [id number]/[id number]* Daily Note: VIANNEY Russell ordered to advance NG tube approx 1in. Pt tolerated well. Priti also notified of pts NG output of 700. Will continue to monitor This note was completed by: Marva Manzano, RN Maryanne Castillo, COLLEGE INTERN.VIANNEY 07/07/2018 1:28 PM Addendum Emergency General Surgery Progress Note SERVICE DATE: 07/07/2018 SUBJECTIVE: Feeling better this morning. Reports some tenderness in abdomen but denies pain, nausea or vomiting. Tolerating diet DIET NPO Parenteral Nutrition - Adult Nausea No Emesis No Flatus No Bowel movement No Pain Controlled Yes Ambulating No OBJECTIVE: Vitals: Temp (24hrs), Av.7 ?C (98.1 ?F), Min:36.7 ?C (98.1 ?F), Max:36.7 ?C (98.1 ?F) BP 105/53 Pulse 61 Temp 36.7 ?C (98.1 ?F) (Oral) Resp 18 Ht 165.1 cm (5' 5) Wt 44.7 kg (98 lb 9.6 oz) SpO2 97% BMI 16.41 kg/m? O2 Therapy: Nasal Cannula IANDO: Date 07/06/18 07 - 07/07/18 0659 07/07/18699 - 07/08/18 0659 Shift 3143-9686 0232-3027 0141-4486 24 Hour Total 6700-1604 2984-0828 8269-7595 24 Hour Total I N T A K E Shift Total O U T P U T Tubes 700 700 Output (GI Feed/Drain 07/06/18 2230 Admission to Hospital Nasogastric Right Naris) 700 700 Shift Total 700 700 Weight (kg) 44.7 44.7 44.7 44.7 44.7 44.7 MEDICATIONS Current Facility-Administered Medications: heparin 5,000 Units injection 5,000 Units SUBCUTANEOUS q 12 H 0.9% NaCl 3-5 mL 3-5 mL INTRAVENOUS q 12 H ondansetron 4 mg tab(s) (ZOFRAN) 4 mg ORAL q 6 H PRN Or ondansetron (PF) 4 mg injection (ZOFRAN) 4 mg INTRAVENOUS q 6 H PRN morphine 1-2 mg injection 1-2 mg INTRAVENOUS q 4 H PRN ipratropium-albuterol 3 mL nebulizer solution (DUONEB) 3 mL INHALATION q 4 H PRN pantoprazole 40 mg injection (PROTONIX) 40 mg INTRAVENOUS DAILY (6 AM) lidocaine 10 mg/mL (1 %) 10-20 mg injection (XYLOCAINE) 1- 2 mL INTRADERMAL ONCE 0.9% NaCl 10 mL 10 mL INTRAVENOUS q 12 H 0.9% NaCl 20 mL 20 mL INTRAVENOUS PRN Labs: Recent Labs 07/07/18 0410 NA 142 K 3.8 CHLOR 103 CO2 31 BUN 31* CREAT 2.03* GLUC 117* ANION 12 CA 8.6 MG 1.7 P 4.4 WBC 6.78 HB 11.2* HCT 34.6* PLT 117* Exam: GENERAL: No distress, Alert NEURO: AANDOx3, CN II-XII grossly intact HEENT: normocephalic, atraumatic LUNGS: Unlabored breathing CARDIAC: Regular rate and rhythm as above ABDOMEN: Soft, slight diffuse tenderness, non-distended. NG tube with brown-green drainage EXTREMITIES: ALBERTS, No deformities, No edema SKIN: Skin color, texture, turgor normal, No rashes or lesions ASSESSMENT AND PLAN: Active Hospital Problems Diagnosis Date Noted - Bowel obstruction (HCC) 07/07/2018 - SBO (small bowel obstruction) (HCC) 07/07/2018 - Hypertension - COPD (chronic obstructive pulmonary disease) (HCC) 68 year old male with SBO, significant weight loss/malnutrition, concern for SMA syndrome - Medical management per primary - Cont NG LIWS - UGI pending - Would recommend TPN/PICC given nutrition status (nutrition consult placed for recs) - Replace electrolytes as needed (would order BMP/CBC/Mag/Phos daily) - No acute surgical intervention at this point, may need OR later this admission pending imaging/progress Assessment and plan discussed with attending: Dr. Guerrero. Will ask GI to see patient for possible scope and cause of weight loss. Feeding tube may be needed SIGNATURE: Maryanne Castillo APRN.CNP PATIENT NAME: Mark Serrano DATE: July 07, 2018 TIME: 11:20 AM Pager: see below Emergency General Surgery Service Pager: For questions or concerns Mon-Fri 6a-5p please page [phone]. After 5pm and on Weekends and Holidays, please page [phone] if in ICU or [phone] if on RNF. Previous Version Jacque Meek RN, RN 07/07/2018 11:11 AM Signed PICC/VASCULAR ACCESS PROGRESS NOTE SERVICE DATE: 07/07/2018 SERVICE TIME: [address] Gomez concerning GFR=32. OK [address] PICC. SIGNATURE: Jacque Meek RN PATIENT NAME: Mark Serrano DATE: July 07, 2018 TIME: 11:10 AM PAGER/CONTACT #: [phone] Maris Patrick, JUAN MANUEL, LD, RD 07/07/2018 12:51 PM Attested Attestation signed by Stefan Heller at 07/07/2018 5:51 PM Discussed with the RD and agree with RD's findings and plan as documented in the RD's note. 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 Illness or Injury based on: Unintentional Weight Loss: >20% in 12 months Insufficient Energy Intake: Less than 75% energy intake compared to estimated needs for greater than or equal to 1 month Subcutaneous Fat Loss: Severe Loss Muscle Loss Severe Loss NUTRITION CARE PLAN: Problem, Etiology and Signs/Symptoms: Suboptimal protein/energy intake related to crohn's disease/ 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 Coordination of Care: pt Monitor and Evaluation: Monitor fluid/electrolyte balance Monitor labs, I/Os, vital signs, weight Discharge Nutrition Recommendations: To be determined Per HPI: 68 year old male with a PMHx COPD, Crohn's, Depression, HTN that presents with complaints of abdominal pain. Pt starting having 10/10 abdominal pain, nausea, and vomiting that started yesterday at 1pm. Pt's last BM was 2 days ago. He reports diarrhea but this is his baseline. Reports history of SBO x 2, bowel resection in 2006. Denies fever, chills, recent illness, CP, SOB, cough, dysuria,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 NPO Parenteral Nutrition - Adult Nausea Yes Emesis No Flatus No Bowel movement No Pain Controlled Yes Ambulating No OBJECTIVE: Vitals: Temp (24hrs), Av.1 ?C (98.7 ?F), Min:36.7 ?C (98.1 ?F), Max:37.4 ?C (99.3 ?F) BP 130/58 Pulse 75 Temp 37.4 ?C (99.3 ?F) (Oral) Resp 18 Ht 165.1 cm (5' 5) Wt 43.5 kg (95 lb 12.8 oz) SpO2 98% BMI 15.94 kg/m? O2 Therapy: Nasal Cannula IANDO: Date 07/08/18699 - 07/09/18 0659 07/09/18 07 - 07/10/18 0659 Shift 3760-9929 4159-0853 3523-7013 24 Hour Total 7870-0430 8434-3712 8325-8157 24 Hour Total I N T A K E TPN/PPN 800 800 TPN 800 800 Shift Total 800 800 O U T P U T Urine 175 100 275 Void (ml) 175 100 275 Tubes 015 376 6574 Output (GI Feed/Drain 07/06/18 2230 Admission to Hospital Nasogastric Right Naris) 159 789 5203 Shift Total 425 935 198 4717 Weight (kg) 42.8 43.5 43.5 43.5 43.5 43.5 43.5 43.5 MEDICATIONS Current Facility-Administered Medications: fluticasone-vilanterol 100-25 mcg/dose 1 Inhalation (BREO ELLIPTA) 1 Inhalation INHALATION DAILY Parenteral Nutrition - Adult INTRAVENOUS ONCE TPN (1800 START) ondansetron 4 mg tab(s) (ZOFRAN) 4 mg ORAL q 4 H PRN Or ondansetron (PF) 4 mg injection (ZOFRAN) 4 mg INTRAVENOUS q 4 H PRN promethazine 12.5 mg tab(s) (PHENERGAN) 12.5 mg ORAL q 6 H PRN prochlorperazine 5 mg injection (COMPAZINE) 5 mg INTRAVENOUS q 4 H PRN heparin 5,000 Units injection 5,000 Units SUBCUTANEOUS q 12 H 0.9% NaCl 3-5 mL 3-5 mL INTRAVENOUS q 12 H morphine 1-2 mg injection 1-2 mg INTRAVENOUS q 4 H PRN ipratropium-albuterol 3 mL nebulizer solution (DUONEB) 3 mL INHALATION q 4 H PRN pantoprazole 40 mg injection (PROTONIX) 40 mg INTRAVENOUS DAILY (6 AM) 0.9% NaCl 10 mL 10 mL INTRAVENOUS q 12 H 0.9% NaCl 20 mL 20 mL INTRAVENOUS PRN Labs: Recent Labs 07/09/18 0336 07/08/18 0530 07/07/18 0410 NA 141 136 142 K 3.2* 4.6 3.8 CHLOR 98 96* 103 CO2 37* 35* 31 BUN 28* 30* 31* CREAT 1.42* 1.54* 2.03* GLUC 112* 375* 117* ANION 9 10 12 CA 8.1* 8.1* 8.6 MG 1.8 2.4 1.7 P 3.5 4.6 4.4 WBC -- 4.49 6.78 HB -- 10.5* 11.2* HCT -- 31.8* 34.6* PLT -- 94* 117* Exam: GENERAL: No distress, Alert NEURO: AANDOx3, CN II-XII grossly intact HEENT: normocephalic, atraumatic LUNGS: Unlabored breathing on nasal canula CARDIAC: Regular rate and rhythm as above ABDOMEN: Soft, LUQ tenderness, non-distended. NG tube to LIWS for brownish-green drainage EXTREMITIES: ALBERTS, No deformities, No edema, PPP SKIN: Skin color, texture, turgor normal ? ASSESSMENT AND PLAN: Active Hospital Problems Diagnosis Date Noted - Bowel obstruction ([facility]) 07/07/2018 - SBO (small bowel obstruction) ([facility]) 07/07/2018 - Nicotine use disorder, F17.2 07/07/2018 - Hypertension - COPD (chronic obstructive pulmonary disease) ([facility]) 68 year old male with SBO, significant weight loss/malnutrition, concern for SMA syndrome ? - Medical management per primary - Cont NG LIWS - Continue TPN - No acute surgical intervention at this point - Consult GI for EGD to rule out neoplasm, [place] Feeding tube may be needed ? 0810 Assessment and plan discussed with attending: Dr. Guerrero. ? SIGNATURE: Mojgan Bolden APRN.ALL SOURCE INTELLIGENCE ANALYST PATIENT NAME: Mark Serrano DATE: July 09, 2018 TIME: 6:24 AM CONTACT: [id number] Emergency General Surgery Service Pager: For questions or concerns Mon-Fri 6a-5p please page [phone]. After 5pm and on Weekends and Holidays, please page [phone]. Uday Jo MD 07/09/2018 9:52 AM Signed INPATIENT PROGRESS NOTE CHIEF COMPLAINT: abd pain N/V INTERVAL HPI: Pt feels a little better today. Nausea seems better with nausea meds. No BM since 07/06. Flatus+. C/o discomfort from NG tube PHYSICAL EXAM: BP 143/75 Pulse 69 Temp (Src) 99.1 (Oral) Resp 18 Ht 5' 5 (1.65m) Wt 95 lb 12.8 oz (43.5kg) SpO2 98% BMI 15.94 kg/(m2). GENERAL: Alert, no distress, cooperative, NG+ LUNGS:diminished SB shayy CARDIAC: Normal S1 and S2; no rubs, murmurs, or gallops ABDOMEN: Abdomen soft,mild LUQ tenderness BS normal, No masses or organomegaly EXTREMITIES: no edema DATA: Diagnostic tests reviewed for today's visit: CBC, Coags, BMP, Mg, Phos Recent Labs 07/09/18 0336 07/08/18 0530 07/07/18 0410 WBC -- 4.49 6.78 HB -- 10.5* 11.2* HCT -- 31.8* 34.6* PLT -- 94* 117* NA 141 136 142 K 3.2* 4.6 3.8 CHLOR 98 96* 103 CO2 37* 35* 31 BUN 28* 30* 31* CREAT 1.42* 1.54* 2.03* GLUC 112* 375* 117* CA 8.1* 8.1* 8.6 MG 1.8 2.4 1.7 P 3.5 4.6 4.4 Assessment/Plan #SBO with concern for SMA syndrome- no surgical interventions per GS note.abd xray seems improving. Now with NG and started on TPN. ? Start CLD. Defer to GS # [place] with CKD 3- improving # COPD- stable restart home Breo #HTN stable. Home emds on hold as NPO # H/o crohns disease- PEntasa on hold # DVT PPX- on heparin Wean O2 to RA. SIGNATURE: Uday Jo MD PATIENT NAME: Mark Serrano DATE: July 09, 2018 TIME: 9:45 AM PAGER: Christoph Robert MD 07/09/2018 3:11 PM Signed CONSULT: GASTROENTEROLOGY SERVICE SERVICE DATE: 07/31/2017 SERVICE TIME: 3:06 PM SUBJECTIVE Chief complaint: 1. Persistent high NG output 2. 3. [place]: Nausea is better; does not like NG tube Current Facility-Administered Medications: phenol 1 Ambia (CHLORASEPTIC) 1 Ambia MUCOUS MEMBRANE (TOPICAL MOUTH AND THROAT) q 2 H PRN Uday Valluri 1 Ambia at 07/09/18 0851 Parenteral Nutrition - Adult INTRAVENOUS ONCE TPN (1800 START) H Palmer Heller fluticasone-vilanterol 100-25 mcg/dose 1 Inhalation (BREO ELLIPTA) 1 Inhalation INHALATION DAILY Uday Valluri 1 Inhalation at 07/09/18 0852 Parenteral Nutrition - Adult INTRAVENOUS ONCE TPN (1800 START) H Palmer Heller Last Rate: 100 mL/hr at 07/08/18 1800 ondansetron 4 mg tab(s) (ZOFRAN) 4 mg ORAL q 4 H PRN Uday Valluri Or ondansetron (PF) 4 mg injection (ZOFRAN) 4 mg INTRAVENOUS q 4 H PRN Uday Valluri promethazine 12.5 mg tab(s) (PHENERGAN) 12.5 mg ORAL q 6 H PRN Uday Valluri prochlorperazine 5 mg injection (COMPAZINE) 5 mg INTRAVENOUS q 4 H PRN Geovanny (Res) MD aTsha 5 mg at 07/08/18 1823 heparin 5,000 Units injection 5,000 Units SUBCUTANEOUS q 12 H Priti (Vianney) APRN. MarkCAR STOWER 5,000 Units at 07/09/18 0858 0.9% NaCl 3-5 mL 3-5 mL INTRAVENOUS q 12 H Priti (Vianney) APRN. MarkCAR STOWER 3 mL at 07/07/18 0037 morphine 1-2 mg injection 1-2 mg INTRAVENOUS q 4 H PRN Priti (Vianney) APRN. MarkCAR STOWER 1 mg at 07/07/18 0037 ipratropium-albuterol 3 mL nebulizer solution (DUONEB) 3 mL INHALATION q 4 H PRN Priti (Vianney) APRN. MarkCAR STOWER 3 mL at 07/08/18 1556 pantoprazole 40 mg injection (PROTONIX) 40 mg INTRAVENOUS DAILY (6 AM) [place] (Res) [place] 40 mg at 07/09/18 0503 0.9% NaCl 10 mL 10 mL INTRAVENOUS q 12 H H Palmer Awender 10 mL at 07/09/18 0857 0.9% NaCl 20 mL 20 mL INTRAVENOUS PRN H Palmer Heller ALLERGIES Allergen Reactions - Penicillin Mental Status Change Fully Assessed 07/09/18 COMPLETE REVIEW OF SYSTEMS: PAIN ASSESSMENT: Negative for pain GENERAL: No weight loss, malaise or fevers HEAD AND NECK: No headache, swollen glands PULMONARY: No cough, wheezing, dyspnea on exertion, or shortness of breath CARDIOVASCULAR: No chest pain, palpitations ABDOMINAL: Per HPI NEUROLOGIC: No dizziness, lightheadedness, or weakness OPHTHALMOLOGIC: No visual abnormalities MUSCULOSKELETAL: No pain, weakness, or leg swelling SKIN: No rash OBJECTIVE PHYSICAL EXAM: 07/08/18 1822 07/08/18 1902 07/09/18 0700 07/09/18 1041 BP: 130/58 143/75 Pulse: 75 69 Resp: 18 18 Temp: 37.4 ?C (99.3 ?F) 37.3 ?C (99.1 ?F) TempSrc: Oral Oral SpO2: 98% 98% 92% Weight: 43.5 kg (95 lb 12.8 oz) Height: Estimated body mass index is 15.94 kg/m? as calculated from the following: Height as of this encounter: 165.1 cm (5' 5). Weight as of this encounter: 43.5 kg (95 lb 12.8 oz). GENERAL: Alert, no distress, cooperative HEENT: PERRLA, normocephalic, no thyromegaly, no lymphadenopathy, trachea centrally located CHEST: Clear to auscultation and percussion bilaterally CVS: RRR, no murmur/gallop ABDOMEN: Soft, mild TTP epigastric area, BS present DATA: Diagnostic tests reviewed for today's visit: CBC: No results for input(s): WBC, RBC, HB, HCT, PLT, MCV, MCH, MPV, RDW in the last 24 hours. Coags: No results for input(s): INR, APTT in the last 24 hours. Invalid input(s): PT BMP: Recent Labs 07/09/18 0336 NA 141 K 3.2* CHLOR 98 CO2 37* BUN 28* CREAT 1.42* GLUC 112* CMP: Recent Labs 07/09/18 0336 NA 141 K 3.2* CHLOR 98 CO2 37* BUN 28* CREAT 1.42* GLUC 112* CA 8.1* MG 1.8 ANION 9 Liver Function, Amylase, Lipase: No results for input(s): TPROT, ALB, ALT, AST, ALKPHOS, TBILI, AMYLASE, LIPASE, LACTATE in the last 24 hours. IMPRESSION 1. SBO ? SMA syndrome 2. Surgical service requesting EGD to rule out intra luminal duodenal lesion 3. RECOMMENDATION/PLAN 1. EGD Wednesday 2. Continue NG tube 3. SIGNATURE: Christoph Robert MD PATIENT NAME: Mark Serrano DATE: 07/09/18 TIME: 3:06 PM MOBILE: [phone] Lisa Luke, COLLEGE INTERN.[facility] 07/10/2018 1:15 PM Signed Emergency General Surgery Progress Note SERVICE DATE: 07/10/2018 Time: 0645 SUBJECTIVE: No overnight events. Reports mild nausea and abdominal pressure this morning Tolerating diet DIET NPO Parenteral Nutrition - Adult Nausea Yes Emesis No Flatus Yes minimal Bowel movement No Pain Controlled Yes Ambulating in room OBJECTIVE: Vitals: Temp (24hrs), Av.3 ?C (99.1 ?F), Min:37.1 ?C (98.8 ?F), Max:37.4 ?C (99.3 ?F) BP 152/88 Pulse 91 Temp 37.1 ?C (98.8 ?F) (Oral) Resp 14 Ht 165.1 cm (5' 5) Wt 44 kg (97 lb) SpO2 96% BMI 16.14 kg/m? O2 Therapy: Room Air IANDO: Date 07/09/18699 - 07/10/1865807/10/18699 - 07/11/18 06 Shift 4877-9470 5721-9042 5876-9472 24 Hour Total 7184-6291 6136-1210 9025-0191 24 Hour Total I N T A K E TPN/PPN 800 800 TPN 800 800 Shift Total 800 800 O U T P U T Urine 650 1 651 Void (ml) 650 650 Urine Not Saved 1 1 Tubes 841 765 4155 Output (GI Feed/Drain 07/06/18 2230 Admission to Hospital Nasogastric Right Naris) 751 566 7474 Shift Total 650 719 791 5270 Weight (kg) 43.5 44 44 44 44 44 44 44 MEDICATIONS Current Facility-Administered Medications: phenol 1 Ambia (CHLORASEPTIC) 1 Ambia MUCOUS MEMBRANE (TOPICAL MOUTH AND THROAT) q 2 H PRN Parenteral Nutrition - Adult INTRAVENOUS ONCE TPN (1800 START) fluticasone-vilanterol 100-25 mcg/dose 1 Inhalation (BREO ELLIPTA) 1 Inhalation INHALATION DAILY ondansetron 4 mg tab(s) (ZOFRAN) 4 mg ORAL q 4 H PRN Or ondansetron (PF) 4 mg injection (ZOFRAN) 4 mg INTRAVENOUS q 4 H PRN promethazine 12.5 mg tab(s) (PHENERGAN) 12.5 mg ORAL q 6 H PRN prochlorperazine 5 mg injection (COMPAZINE) 5 mg INTRAVENOUS q 4 H PRN heparin 5,000 Units injection 5,000 Units SUBCUTANEOUS q 12 H 0.9% NaCl 3-5 mL 3-5 mL INTRAVENOUS q 12 H morphine 1-2 mg injection 1-2 mg INTRAVENOUS q 4 H PRN ipratropium-albuterol 3 mL nebulizer solution (DUONEB) 3 mL INHALATION q 4 H PRN pantoprazole 40 mg injection (PROTONIX) 40 mg INTRAVENOUS DAILY (6 AM) 0.9% NaCl 10 mL 10 mL INTRAVENOUS q 12 H 0.9% NaCl 20 mL 20 mL INTRAVENOUS PRN Labs: Recent Labs 07/10/18 0247 07/09/18 0336 07/08/18 0530 NA 139 141 136 K 3.2* 3.2* 4.6 CHLOR 94* 98 96* CO2 37* 37* 35* BUN 30* 28* 30* CREAT 1.29* 1.42* 1.54* GLUC 137* 112* 375* ANION 11 9 10 CA 9.0 8.1* 8.1* MG 2.0 1.8 2.4 P 3.2 3.5 4.6 WBC -- -- 4.49 HB -- -- 10.5* HCT -- -- 31.8* PLT -- -- 94* Exam: GENERAL: No distress, Alert NEURO: AANDOx3, CN II-XII grossly intact HEENT: normocephalic, atraumatic LUNGS: Unlabored breathing on room air CARDIAC: Regular rate and rhythm as above ABDOMEN: Soft, LUQ tenderness, non-distended. NG tube to LIWS for brownish-green drainage EXTREMITIES: ALBERTS, No deformities, No edema, PPP SKIN: Skin color, texture, turgor normal ? ASSESSMENT AND PLAN: Active Hospital Problems Diagnosis Date Noted - Bowel obstruction (HCC) 07/07/2018 - SBO (small bowel obstruction) (HCC) 07/07/2018 - Nicotine use disorder, F17.2 07/07/2018 - Hypertension - COPD (chronic obstructive pulmonary disease) ([facility]) 68 year old male with SBO, significant weight loss/malnutrition, concern for SMA syndrome - Medical management per primary - Cont NG LIWS - Continue TPN - Hypokalemia: replace IV - No acute surgical intervention at this point - Appreciate GI input: plan for EGD tomorrow - PT/OT ? 0900 ?Assessment and plan discussed with attending: Dr. Guerrero. ? - CT chest ? SIGNATURE: Mojgan Bolden APRN.ALL SOURCE INTELLIGENCE ANALYST PATIENT NAME: Mark Serrano DATE: July 10, 2018 TIME: 6:20 AM CONTACT: [id number] Emergency General Surgery Service Pager: For questions or concerns Mon-Wed 6a-5p please page [phone]. After 5pm and on Weekends and Holidays, please page [phone]. Barbara Baldwin DO 07/10/2018 10:31 PM Signed INTERNAL MEDICINE PROGRESS NOTE SERVICE DATE: 07/10/2018 SERVICE TIME: 6:05 PM ADMITTING PHYSICIAN: Dalia Santos Subjective CHIEF COMPLAINT: f/u medical issues listed below Current Facility-Administered Medications: Parenteral Nutrition - Adult INTRAVENOUS ONCE TPN (1800 START) iv contrast (radiology procedure) INTRAVENOUS DIRECTED PRN phenol 1 Ambia (CHLORASEPTIC) 1 Ambia MUCOUS MEMBRANE (TOPICAL MOUTH AND THROAT) q 2 H PRN fluticasone-vilanterol 100-25 mcg/dose 1 Inhalation (BREO ELLIPTA) 1 Inhalation INHALATION DAILY ondansetron 4 mg tab(s) (ZOFRAN) 4 mg ORAL q 4 H PRN Or ondansetron (PF) 4 mg injection (ZOFRAN) 4 mg INTRAVENOUS q 4 H PRN promethazine 12.5 mg tab(s) (PHENERGAN) 12.5 mg ORAL q 6 H PRN prochlorperazine 5 mg injection (COMPAZINE) 5 mg INTRAVENOUS q 4 H PRN heparin 5,000 Units injection 5,000 Units SUBCUTANEOUS q 12 H 0.9% NaCl 3-5 mL 3-5 mL INTRAVENOUS q 12 H morphine 1-2 mg injection 1-2 mg INTRAVENOUS q 4 H PRN ipratropium-albuterol 3 mL nebulizer solution (DUONEB) 3 mL INHALATION q 4 H PRN pantoprazole 40 mg injection (PROTONIX) 40 mg INTRAVENOUS DAILY (6 AM) 0.9% NaCl 10 mL 10 mL INTRAVENOUS q 12 H 0.9% NaCl 20 mL 20 mL INTRAVENOUS PRN INTERVAL HISTORY OF PRESENT ILLNESS: Only c/o BROWN Objective PHYSICAL EXAM: Patient Vitals for the past 24 hrs: BP Temp Temp src Pulse Resp SpO2 Weight 07/10/18 0720 184/86 37 ?C (98.6 ?F) - 87 16 94 % - 07/10/18 0718 176/84 - - - - - - 07/10/18 0550 - - - - 14 - - 07/10/18 0300 - - - - 16 - - 07/10/18 0102 - - - - 16 - - 07/10/18 0100 152/88 37.1 ?C (98.8 ?F) Oral 91 16 - - 07/09/181 - - - - - - 44 kg (97 lb) 07/09/180 - - - 76 16 96 % - 07/09/18 2046 171/95 37.4 ?C (99.3 ?F) Oral 89 18 95 % - 07/09/18 1930 - - - - 16 - - Body mass index is 16.14 kg/m?. GENERAL: Alert, no distress, cooperative OROPHARYNX:NG in R nose LUNGS: Lungs clear to auscultation. Good diaphragmatic excursion. CARDIAC: Normal S1 and S2; no rubs, murmurs, or gallops ABDOMEN: Abdomen soft EXTREMITIES: no swelling DATA: Diagnostic tests reviewed for today's visit: Significant findings were revd IMPRESSION: Prominent dilatation of the duodenum, measuring up to approximately 6 cm. ?The jejunum and ileum appear decompressed. ?Correlate clinically to the possibility of ?SMA syndrome. Result History XR UPPER GI W SMALL BOWEL SERIES (Order #[id number]) on 07/07/2018 Assessment/Plan Possible SMA syndrome/obstruction PLAN: EGD Wednesday C/w NG to LIWS SIGNATURE: Barbara Baldwin DO PATIENT NAME: Mark Serrano DATE: July 10, 2018 TIME: 6:05 PM PAGER/CONTACT #: Lalita Ritter RN, RN 07/11/2018 8:46 AM Signed CARE MANAGEMENT PROGRESS NOTE SERVICE DATE: 07/11/2018 SERVICE TIME: 8:44 AM LOS: 4 days Needs Prior to Discharge: To Be Determined;Home Care Order;OT/PT Evaluation Chart reviewed. GI and general surgery following. EGD this morning. Continues On TPN at this time. await EGD findings and PT/OT eval for DC planning SIGNATURE: Lalita Ritter RN PATIENT NAME: Mark Serrano DATE: July 11, 2018 TIME: 8:44 AM PAGER/CONTACT #: [phone] Jose Juan Martinez MD 07/11/2018 9:04 AM Signed ANESTHESIOLOGY DAY OF SURGERY NOTE SERVICE DATE: 07/11/2018 SERVICE TIME: 9:03 AM : 1950 Procedure(s) (LRB): EGD WITH BIOPSY (Left) Surgeon(s): Geovanny Sanders Estimated body mass index is 15.85 kg/m? as calculated from the following: Height as of this encounter: 165.1 cm (5' 5). Weight as of this encounter: 43.2 kg (95 lb 3.8 oz). Most recent hematocrit and potassium results: Hematocrit 31.8 07/08/2018 Potassium 3.9 07/11/2018 ANES DOS/PREOP NOTE: Vitals: 07/11/18 0015 07/11/18 0300 07/11/18 0611 07/11/18 0715 BP: 141/90 Pulse: 91 Resp: Temp: 37.2 ?C (99 ?F) TempSrc: Oral SpO2: 99% Weight: Height: ACTIVE PROBLEM LIST Unspecified Essential Hypertension Arthritis Emphysema Ibs (Irritable Bowel Syndrome) Diarrhea Crohn's Disease (Hcc) Hypertension Copd (Chronic Obstructive Pulmonary Disease) (Hcc) Bowel Obstruction (Hcc) Sbo (Small Bowel Obstruction) (Hcc) Nicotine use disorder, F17.2 Vomiting PAST MEDICAL HISTORY Diagnosis Date - Arthritis - COPD (chronic obstructive pulmonary disease) (HCC) - Crohn's disease (HCC) - Depression - Diarrhea - Emphysema - Hypertension - IBS (irritable bowel syndrome) - Unspecified essential hypertension PAST SURGICAL HISTORY Procedure Laterality Date - COLONOSCOP W/ OR W/O [facility] SPEC Colonoscopy x 4 - PAST SURGICAL HISTORY OF 2003 lower bowel surgery - PAST SURGICAL HISTORY OF dental surgery - REMOVAL OF TONSILS,<10 Y/O Tonsillectomy FAMILY HISTORY Problem Relation Age of Onset - other (black lung) Father - other (lung disease) Brother - other (polio) Sister - other (hip problems) Daughter defects Social History: Social History Substance Use Topics - Smoking status: Former Smoker - Smokeless tobacco: Never Used - Alcohol use No No current facility-administered medications on file prior to encounter. Current Outpatient Prescriptions on File Prior to Encounter: albuterol HFA (VENTOLIN HFA) 90 mcg/actuation inhaler Inhale 2 Puffs as instructed as directed. ciprofloxacin 250 mg tablet Take 250 mg by mouth twice daily. acetaminophen-HYDROcodone (VICODIN) 5-500 mg tablet Take 1 tablet by mouth every 6 hours as needed. predniSONE 20 mg tablet Take 20 mg by mouth twice daily. metroNIDAZOLE (FLAGYL) 500 mg tablet Take 500 mg by mouth three times daily. Current Facility-Administered Medications: [MAR Hold due to Transfer] Parenteral Nutrition - Adult INTRAVENOUS ONCE TPN (1800 START) H Palmer Heller [MAR Hold due to Transfer] Parenteral Nutrition - Adult INTRAVENOUS ONCE TPN (1800 START) H Palmer Heller Last Rate: 125 mL/hr at 07/10/18 192 [MAR Hold due to Transfer] iv contrast (radiology procedure) INTRAVENOUS DIRECTED PRN Mojgan Ring (Salon Shampoo Assistant) Yuan [MAR Hold due to Transfer] acetaminophen 650 mg suppository (TYLENOL) 650 mg RECTAL q 4 H PRN Barbara Baldwin [MAR Hold due to Transfer] phenol 1 Ambia (CHLORASEPTIC) 1 Ambia MUCOUS MEMBRANE (TOPICAL MOUTH AND THROAT) q 2 H PRN Uday Valluri 1 Ambia at 07/09/18 0851 [MAR Hold due to Transfer] fluticasone-vilanterol 100-25 mcg/dose 1 Inhalation (BREO ELLIPTA) 1 Inhalation INHALATION DAILY Uday Valluri 1 Inhalation at 07/11/18 0832 [MAR Hold due to Transfer] ondansetron 4 mg tab(s) (ZOFRAN) 4 mg ORAL q 4 H PRN Uday Valluri Or [MAR Hold due to Transfer] ondansetron (PF) 4 mg injection (ZOFRAN) 4 mg INTRAVENOUS q 4 H PRN Uday Valluri [MAR Hold due to Transfer] promethazine 12.5 mg tab(s) (PHENERGAN) 12.5 mg ORAL q 6 H PRN Uday Valluri [MAR Hold due to Transfer] prochlorperazine 5 mg injection (COMPAZINE) 5 mg INTRAVENOUS q 4 H PRN Geovanny (Res) MD Tasha 5 mg at 07/08/18 1823 [MAR Hold due to Transfer] heparin 5,000 Units injection 5,000 Units SUBCUTANEOUS q 12 H Priti (Peanut Cleaner) APRN. MarkCAR STOWER 5,000 Units at 07/10/18 192 [MAR Hold due to Transfer] 0.9% NaCl 3-5 mL 3-5 mL INTRAVENOUS q 12 H Priti (Vianney) APRN. MarkCAR STOWER 3 mL at 07/07/18 003 [MAR Hold due to Transfer] morphine 1-2 mg injection 1-2 mg INTRAVENOUS q 4 H PRN Priti (Peanut Cleaner) APRN. MarkCAR STOWER 1 mg at 07/07/18 003 [MAR Hold due to Transfer] ipratropium-albuterol 3 mL nebulizer solution (DUONEB) 3 mL INHALATION q 4 H PRN Priti (Vianney) APRN. MarkCAR STOWER 3 mL at 07/08/18 1556 [MAR Hold due to Transfer] pantoprazole 40 mg injection (PROTONIX) 40 mg INTRAVENOUS DAILY (6 AM) Gerson Hurd) [place] 40 mg at 07/11/18 0511 [MAR Hold due to Transfer] 0.9% NaCl 10 mL 10 mL INTRAVENOUS q 12 H H Palmer Heller 10 mL at 07/11/18 0832 [MAR Hold due to Transfer] 0.9% NaCl 20 mL 20 mL INTRAVENOUS PRN H Palmer Heller Allergies: ALLERGIES Allergen Reactions - Penicillin Mental Status Change DOS EXAM: Adequate NPO status: Yes Anesthetic risks, benefits, alternatives, personnel and consent discussed: Yes Patient agrees to proceed: Yes Previous Anesthesia: No history of adverse event. Airway Assessment: MP 2; Neck ROM: Full ROM without neurologic symptoms; Airway Evaluation: No significant abnormalities Symptoms of Sleep Apnea: None Dentition: Edentulous Additional Physical Exam: Lungs: Patient health status unchanged since recent history and physical. See history and physical for exam findings. Cardiac: Patient health status unchanged since recent history and physical. See history and physical for exam findings. Additional Pertinent Findings: N/A Blood Products: Not anticipated for this procedure. Anesthetic Plan: MAC with Sedation Pain Management Plan: Parenteral or Oral ASA Class: 3 Other Medical Problems: None Chronic Beta Killian medication administered within 24 hours: N/A I have interviewed and examined the patient. I have reviewed the medical record and/or the pre-anesthesia evaluation, pertinent labs, and test results. Significant changes in the patient's condition since the History and Physical, not otherwise documented in primary service progress notes: No This contains updated information obtained within 48 hours of Surgery/Procedure. SIGNATURE: Jose Juan Martinez MD PATIENT NAME: Mark Serrano DATE: July 11, 2018 TIME: 9:03 AM CSN: [id number] Felicitas Gates RN, RN 07/11/2018 9:10 AM Signed PRE OP LEARNING ASSESSMENT PROCEDURE/SURGERY: GI PROCEDURES: EGD READINESS TO LEARN COGNITIVE ABILITY: Alert and oriented MOTIVATION TO LEARN: Eager FAMILY SUPPORT: None - Unavailable/disinterested PATIENT LEARNS BEST BY: Individual Instruction FACTORS AFFECTING LEARNING: None PHYSICAL LIMITATIONS AFFECTING LEARNING: None Electronically Signed By: Felicitas Gates RN In Department: [facility]RISTY [facility]VATH CBC W/DIFF, AUTOMATED Collected: 06/30/2018 Status: F Source: [place] 11:05 AM [facility] REPOSITORY TYPE CODE TESTS RESULT OUT OF RANGE REFERENCE UNITS LAB L100.1000 4.4-11.0 K/mm3 Low WBC 3.1 LAB L100.1200 4.6-6.2 M/mm3 Low RBC 3.75 LAB L100.1300 13.0-16.5 g/dl Low HGB 11.2 LAB L100.1400 40-54 % Low HCT 33.6 LAB L100.1500 80-94 fL Normal MCV 89.6 LAB L100.1600 27.0-32.0 pg Normal MCH 29.9 LAB L100.1700 32-36 g/gl Normal MCHC 33.3 LAB L100.1810 11.6-14.6 % Normal RDW CV 13.3 LAB L100.1820 35.1-43.9 fl Normal RDW SD 42.3 LAB L100.1900 150-450 K/mm3 Low PLT 123 LAB L100.2000 6.2-12.0 fl Normal MPV 11.1 LAB L100.2100 47-70 % High NEUT% 73.5 LAB L100.2200 19-41 % Low LY% 16.4 LAB L100.2300 0-10 % Normal MONO% 7.5 LAB L100.2400 0-5 % Normal EO% 2.3 LAB L100.2500 0-1 % Normal BASO% 0.3 LAB L100.2550 0.0-0.9 % Normal IM GRAN % 0.000 Result Comment: IG% - Immature Granulocytes (promyelocytes, myelocytes and metamyelocytes) > 1% indicates that a LEFT SHIFT is Present. LAB L100.2620 2.0-7.7 X10 3/uL Normal Absolute Neut 2.2 LAB L100.2720 0.83-4.51 X10 3/ul Low Absolute Lymph 0.50 LAB L100.4500 Normal SMEAR COMMENT SCANNED Performed By: #### L100.0100 #### [facility] [address] [place], [address] COMPREHENSIVE METABOLIC Collected: 06/30/2018 Status: F Source: [facility] 11:05 AM [facility] REPOSITORY TYPE CODE TESTS RESULT OUT OF RANGE REFERENCE UNITS LAB L501.0100 74-106 mg/dL High GLU 112 Result Comment: Fasting Glucose result from 100 to 125 mg/dL suggests IMPAIRED HOMEOSTASIS per A.D.A. criteria. Please note revised GLUCOSE reference range effective 2017. LAB L501.1000 7-18 mg/dL High BUN 22 LAB L501.1100 0.70-1.30 mg/dL High CREAT,SERUM 1.82 Result Comment: The validity of the calculated GFR AND GFRAA in patients over 70 years has not been determined. Clinical correlation is essential. LAB L501.1110 >60 mL/min Low EST GFR 39 Result Comment: Non- GFR Calc LAB L501.1115 >60 mL/min Low EST GFR - AA 48 Result Comment: GFR Calc LAB L501.1300 10-20 RATIO Normal BUN/CRE 12.1 LAB L501.1500 6.4-8.2 g/dL Low T PROT 6.3 LAB L501.1800 3.2-5.0 g/dL Normal ALB 3.5 LAB L501.1950 2.2-4.2 g/dL Normal GLOB 2.8 LAB L501.2000 0.9-2.4 RATIO Normal A/G 1.2 LAB L501.2200 8.5-10.1 mg/dL CA Normal 8.7 LAB L501.4100 15-37 U/L Normal AST 25 LAB L501.4305 45-117 U/L Normal ALK P 85 LAB L501.4405 16-61 U/L Normal ALT 54 LAB L501.4600 0.20-1.00 mg/dL T Normal BILI 0.80 LAB L501.5300 136-145 mmol/L NA Normal 143 LAB L501.5600 3.5-5.1 mmol/L K Normal 3.8 LAB L501.5900 98-107 mmol/L CL Normal 107 LAB L501.6100 21.0-32.0 mmol/L Normal CO2 28.0 LAB L501.6200 5-15 Normal GAP 8 Performed By: #### L500.4050, L501.9520 #### [facility] [address] [place], [place], [address] THYROID STIM HORMONE Collected: 06/30/2018 Status: F Source: [place] [facility]) 11:05 AM [facility] REPOSITORY TYPE CODE TESTS RESULT OUT OF RANGE REFERENCE UNITS LAB L501.9520 0.358-3.74 uIU/mL Normal TSH 0.90 Performed By: #### L500.4050, L501.9520 #### [facility] [address] [place], [address] VITAMIN D,25 HYDROXY Collected: 06/30/2018 Status: F Source: [place] 11:05 AM [facility] REPOSITORY TYPE CODE TESTS RESULT OUT OF REFERENCE UNITS RANGE LAB L506.1000 29.95-100.01 ng/mL Low Vitamin D 18.0 25-OH Result Comment: Vitamin D 25(OH) Status Range Deficiency <20 ng/mL (50nmol/L) Insuffciency 20 - 30 ng/mL (50 - 75 nmol/L) Sufficiency 30 - 100 ng/mL (75 - 250 nmol/L) Toxicity >100 ng/mL (>250 nmol/L) Performed By: #### L506.1000 #### [facility] [address] [place], [address] PULMONARY VISIT REPORT Observed: 06/23/2018 Status: F Source: [place] 12:28 PM [facility] REPOSITORY [facility] [address] [place] [address] OFFICE VISIT Date of Service: 06/23/18 MR#: [id number] Acct: [id number] Name: MARK SERRANO Rep #: [id number] : 1950 Provider: Delma Frey Age/Sex: 68/M Location: [facility] Status: Signed Assessment AND Plan 1. Panlobular emphysema J43.1 Plan He does not appear to be in exacerbation of his COPD today. Unfortunately, he is not willing to repeat a pulmonary function test or a pulmonary stress test. Patient states that both of these tests were too stressful to him and caused him to feel ill for several days after completing them. It would be helpful to have a current pulmonary function test, but given his physical appearance and subjective complaints it appears as though he has end-stage COPD. We were able to complete a walking oximetry in the office today, during which time the patient did not become hypoxic and does not qualify or require supplemental oxygen at this time. Follow-up with Dr. Ocampo in 3 months. The patient did receive a influenza vaccination today. He has been encouraged to contact the office with any new or worsening symptoms in the meantime. Plan Detail Other Orders Orders: Other Medications New: Changed: Discontinued: flu vacc 2016-(65yr up)-MF59C(PF) 45 mcg(15 mc0.5 mL IM ONCE J44.9, Z23 May Dhillon gx3)/0.5 mL IM syringe Discontinued Reason: Office Medication has been Documented as given Follow Up 3 Months (BWA) HPI Chronic obstructive pulmonary disease: Chief Complaint: Shortness of breath on exertion HPI Comments Details: This patient presents to the office today for an initial consultation to reestablish care after he lost touch with the practice. He is ambulatory and currently on room air. He reports that he has not been seen in the ED for any respiratory illnesses in greater than 6 months. He reports that the last time he was treated for a respiratory illness that required antibiotics and prednisone was approximately 4 months ago. He also reports that in the past 6 months he has suffered from 3 minor heart attacks. 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 Currently, he is using Symbicort 2 puffs twice daily. He reports drinking fluids after the use of the Symbicort. He denies any medication side effects such as sore throat or thrush. He is also compliant with Spiriva daily. He is currently using his Ventolin rescue inhaler 3-4 times daily, which he reports is an improvement to the frequency in which he was using it 4 months ago. He is currently a non-smoker. Reports that he quit smoking in 2017. He reports a cough that is more common around bedtime or during sleep. He states that it is productive but does not report the color. He reports frequent shortness of breath, which even discourages him from participating in many activities. He reports that for the most part he stays in my room. He also reports an intolerance of heat and cold. He states that the weather needs to be neutral for him to be able to breathe. He does not tolerate an air conditioner. See complete review of systems. Currently he is caring for a roommate that is on hospice care for cancer. He states that he is under some significant amount of stress caring for this roommate. This has affected his ability to eat and sleep. 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 Accompanied by: Self Allergies Penicillins Adverse Reaction (Verified 06/23/18 07:57) Other Medications Loperamide [Imodium] 2 mg PO DAILY 01/17/15 [History Confirmed 06/23/18] atorvastatin 20 mg tablet 20 mg PO QDAY #30 tab 11/25/17 [Rx Confirmed 06/23/18] lisinopril 5 mg tablet 5 mg PO QDAY #30 tab 11/25/17 [Rx Confirmed 06/23/18] Mesalamine [Pentasa] 500 mg PO DAILY 12/20/17 [History Confirmed 06/23/18] Budesonide/Formoterol 160/4.5 [Symbicort 160/4.5 Mcg Inhaler (SP)] 1 puff INHALATION DAILY #1 inhaler 12/22/17 [Rx Confirmed 06/23/18] albuterol sulfate 2.5 mg/3 mL (0.083 %) solution for nebulization 2.5 mg INHALATION Q4H PRN PRN #180 vial 06/23/18 [Rx Confirmed 06/23/18] albuterol sulfate HFA 90 mcg/actuation aerosol inhaler 2 puff INHALATION Q4H PRN g 06/23/18 [History Confirmed 06/23/18] tiotropium bromide 18 mcg capsule with inhalation device 1 cap INHALATION DAILY #30 inh 06/23/18 [Rx Confirmed 06/23/18] PFSH Medical History Non-rheumatic tricuspid valve insufficiency (Chronic) Atherosclerosis of coronary artery of tolowa dee-ni' heart without angina pectoris (Chronic) Nicotine abuse (Chronic) Hypertension (Chronic) COLD (chronic obstructive lung disease) (Chronic) CKD (chronic kidney disease) stage 4, GFR 15-29 ml/min (Chronic) Arthritis (Chronic) Crohns disease (Chronic) Non-ST elevation (NSTEMI) myocardial infarction (Chronic 01/09/15) Small bowel obstruction (Resolved) Surgical History History of left heart catheterization (Acute 01/09/15) Family History Father neg FH of ASCVD Social History Smoking Status: Former smoker quit date: 10/25/16 pack-years: 75 alcohol intake: never substance use type: does not use caffeine: Yes Type: coffee Number of servings: 3 Review of Systems Const CONSTITUTIONAL: Positive fatigue, weight loss and orthopnea; negative anorexia, body ache, chills, daytime sleepiness, fever(s), night sweats, oral thrush, stops breathing during sleep, weight loss, sleeping in chair, weight gain, frequent colds, seasonal allergies, other or headache(s) EETM Ear Nose Throat Mouth: Positive hard of hearing and post nasal drip; negative hoarseness, dry mouth in morning, change in vision, itchy eyes, eye pain, swallowing Difficulty, ear pain, headache(s), mouth pain, nasal congestion, nasal discharge, sinus pain, sinus pressure, sore throat, other or nose bleed Cardio Cardiovascular: Positive shortness of breath when lying down; negative chest pain, chest pain at rest, chest pain with activity, irregular heart rhythm, edema, palpitations, other or murmur Resp Respiratory: Positive as per HPI, shortness of breath shortness of breath: Positive with activity, cough (mostly at HS ) cough: Positive productive color: Positive thick and clear, chest tightness (laying flat and with activity) and inhalers; negative pain with cough, wheezing, chest congestion, pain on inspiration, increase use of rescue inhalers, snoring, apnea or other Gastro Gastrointestional: Positive change in appetite; negative bloody stools, difficulty swallowing, reflux, hematemesis, melena stool, loose stool, constipation or other Genitourinary: Negative blood in urine, nocturia, pain with urination or other Musc Musculoskeletal: Negative body pain, back pain, neck pain or other Skin/Breast Skin/Breast: Negative dry skin, itching, unusual bruising, breast lump, other or rash Neuro Neurological: Negative restless legs, confusion, weakness or other Psych Psychocological: Positive abnormal sleep pattern, anxiety and hopelessness; negative thoughts of hurting self/others or other Lymph Lymphatic: Negative easy bleeding, easy bruising, other or swollen lymph nodes Exam Const Constitutional: Positive cooperative, in no acute respiratory distress, frail appearing, cachectic and conversant Head Head: Positive normocephalic and atraumatic; negative cyanosis of lips/distal nose Eyes Eye: Positive clear conjunctiva; negative nystagmus or scleral abnormality Ears Ear: Positive external ears normal and hard of hearing Nose Nose: Positive external nose normal and no nasal discharge; negative epistaxis Mouth Mouth: Positive oral mucosae normal, no lesions, posterior oropharynx is adequate and post nasal drip; negative malodorous breath or oral thrush present Mallampati Score: I: Mallampati Score Neck Neck: Positive normal visual inspection, full ROM and trachea midline; negative lymphadenopathy, JVD or tender Chest Wall Chest: Positive symmetric chest movement and increased A/P diameter Resp lung sounds: Positive clear to auscultation, diminished, prolonged expiratory time and increased work of breathing; negative wheezes, rhonchi, rales, dullness to percussion or wheeze present on forced exhalation Cardio Cardiac: Positive regular rate, regular rhythm, S1 normal and S2 normal; negative murmur GI GI: Positive normal to inspection and normal bowel sounds; negative distended Genitourinary: Positive deferred Musc Musculoskeletal: Positive steady gait and ROM normal; negative kyphosis or scoliosis Skin Pulmonary Skin Exam: Positive intact; negative rash Pulses Pulse: Yes pulses normal x4 extremities Extremities Extremities: Yes capillary refill normal, Yes clubbing, No cyanosis, No edema Neuro Neurologic: Yes no focal neuro deficits, Yes normal concentration, Yes understands questions, Yes cooperative, Yes normal cognition, Yes normal coordination, Yes conversant Lymph Lymphatic: No tenderness, No cervical adenopathy, No lymphadenopathy Psych Appearance: Positive grossly normal, eye contact and well kempt Mental Status: Positive mental status grossly normal Mood: Positive congruent mood Affect: Positive normal affect Office Procedures Walking Oximetry Walking Oximetry Procedure performed by: May Dhillon Walking Oximetry: Yes walking oximetry preformed, see nurisng documentation, desaturation below 89% did not occur, no signs of distress prior to departing office and no indication for supplemental oxygen at this time Immunizations flu vacc 2016-(65yr up)-MF59C(PF) 45 mcg(15 mcgx3)/0.5 mL IM syringe Performing Provider: LALO Panchal Administered by: May Dhillon on 06/23/18 10:32 Dose Route Admin Location Lot Number Expiration Date NDC Transportation Department Head 0.5 mL IM Left Deltoid [id number] 02/21/19 15627-871-39 SEQIRUS VIS Given Date VIS Publication Date 06/23/18 05/31/15 Eligibility Eligibility Date Comments: Injection given without pain or discomfort. Left office without adverse reaction. BMJ Coding Level of Care Code Off vis,new,level 3 Diagnoses Panlobular emphysema J43.1 COPD type: emphysema Emphysema type: panlobular 06/23/18 1228 <Electronically signed by Delma MAY> Date Delma De Signature: Date (if applicable) CC: Jalen Rodríguez MD CARDIOLOGY VISIT Observed: 06/16/2018 Status: F Source: [place] REPORT 3:27 PM [facility] REPOSITORY [facility] [address] [place] [address] OFFICE VISIT Date of Service: 06/16/18 MR#: [id number] Acct: [id number] Name: MARK SERRANO Rep #: [id number] : 1950 Provider: Aj Jimenez MD Age/Sex: 68/M Location: [facility] Status: Signed HPI HPI Chief Complaint: Routine f/u Details: Mr. Serrano is a very pleasant 68-year-old gentleman with a history of Crohn's disease, previous smoker who quit in June 2016, history of GI bleeding, history of kidney stones, stage IV chronic renal sufficiency with a creatinine clearance of 34, who presented initially to [facility] with substernal chest pain and non-ST elevation myocardial infarction in December 2014. I performed a left heart catheterization which demonstrated a possibly significant LAD stenosis. Given his small troponin release, and questionable lesion, he was placed on baby aspirin and Plavix. He was to undergo a stress test approximately 2 weeks after that to evaluate for possible anterior ischemia, however shortly after discharge he developed lower GI bleeding and presented to [facility] on 01/18[facility]. At that time he was emergently fluid resuscitated and transferred to [facility] where he underwent an EGD 2, several units of packed cells for a hemoglobin of 5. according to the patient either underwent a GI angiogram to look for the bleeding, or a tagged red blood cell scan, we are awaiting those records. Patient is now here in follow-up,and denies any exertional chest pain, angina or shortness of breath. His antihypertensives were discontinued due to his GI bleeding. He did not undergo a stress test due to her previous financial balance. He is currently on baby aspirin. Patient was Previously found to be hypertensive and Dr. Ocampo's office and was started on Norvasc which he is taking without difficulty. He also had an trial of a statin, but this did not agree with him. He has had no further GI bleeding or black tarry stools. As part of his cardiac workup he underwent a non-walking nuclear stress test 10/31/15 which was negative for inducible ischemia demonstrating an EF of 57%. Patient has successfully quit smoking in June 2016. He presented to [facility] ER on 08/12/16 with abdominal pain and flulike symptoms. He was subsequently treated medically and sent home. He denies any exertional angina, chest pain or shortness of breath over his baseline. He appears to have significant COPD. He is to see Dr. Ocampo, but has not seen him in a while. Patient does not wish to see Dr. Cahpman at this time but is open to other renal options. Patient has been taking and tolerating his medicines well and denies any chest pain, angina, shortness of breath or dyspnea on exertion other than when he runs out of his inhalers. In our office today his blood pressure is 90/40 and 100 regular. His physical exam is as below. He has very distant breath sounds bilaterally. He is quite emaciated given his Crohn's disease, but this is about what he usually looks like. He has no edema. His lipids as of 01/06/15 showed HDL of 64 and LDL of 55. Repeat lipids are pending. His echo as of 01/06 showed an EF of 60%. His lipids as of 12/10/17 show an LDL of 34 and HDL of 49. 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 Is patient in pain?: No Allergies Penicillins Adverse Reaction (Verified 06/16/18 15:13) Other Medications Albuterol Aerosols [Ventolin Aerosols] 2.5 mg INHALATION Q4H PRN PRN 01/17/15 [History Confirmed 06/16/18] Loperamide [Imodium] 2 mg PO DAILY 01/17/15 [History Confirmed 06/16/18] atorvastatin 20 mg tablet 20 mg PO QDAY #30 tab 11/25/17 [Rx Confirmed 06/16/18] lisinopril 5 mg tablet 5 mg PO QDAY #30 tab 11/25/17 [Rx Confirmed 06/16/18] Mesalamine [Pentasa] 500 mg PO DAILY 12/20/17 [History Confirmed 06/16/18] Budesonide/Formoterol 160/4.5 [Symbicort 160/4.5 Mcg Inhaler (SP)] 1 puff INHALATION DAILY #1 inhaler 12/22/17 [Rx Confirmed 06/16/18] Tiotropium [place] [Spiriva 18 MCG] 1 puff INHALATION DAILY #1 inhaler 12/22/17 [Rx Confirmed 06/16/18] PFSH Medical History Non-rheumatic tricuspid valve insufficiency (Chronic) Atherosclerosis of coronary artery of tolowa dee-ni' heart without angina pectoris (Chronic) Nicotine abuse (Chronic) Hypertension (Chronic) COLD (chronic obstructive lung disease) (Chronic) CKD (chronic kidney disease) stage 4, GFR 15-29 ml/min (Chronic) Arthritis (Chronic) Crohns disease (Chronic) Non-ST elevation (NSTEMI) myocardial infarction (Chronic 01/09/15) Small bowel obstruction (Resolved) Surgical History History of left heart catheterization (Acute 01/09/15) Family History Father neg FH of ASCVD Social History Smoking Status: Former smoker quit date: 10/25/16 pack-years: 75 alcohol intake: never substance use type: does not use caffeine: Yes Type: coffee Number of servings: 3 ROS Const Const: Negative for body ache, fever(s), chills, night sweats, daytime sleepiness, difficulty sleeping, weight gain, weight loss, increased appetite, poor appetite, anorexia, other, fatigue, excessive sweating, weakness, headache(s) or frequent falls Eyes Eyes: Negative for blind spots, loss of peripheral vision, transient loss of vision, change in vision, floaters, tunnel vision, other, blurry vision or double vision ENT ENT: Negative for hearing loss, tinnitus, Nosebleed/epistaxis, post nasal drip, bleeding gums, hoarseness, neck pain, dry mouth, other, balance problems, headache(s), dizziness, lip swelling or tongue swelling Cardio Chest Pain: No Palpitations: No Edema: None Muscle aches with walking: None Resp Respiratory: Positive for SOB with activity (Has COPD, states right now not bad); negative for SOB at rest, SOB orthopnea\SOB lying down, Coughing up blood/hemoptysis, chest congestion, pain on inspiration, snoring, stridor, wheezing, crackles, paroxysmal nocturnal dyspnea or other GI GI: Negative nausea, vomiting, heartburn, constipation, belching, bloating, cramping, vomiting blood/hematemesis, bright, red blood in stools, black,tarry stools, loose stools, Difficulty Swallowing or other : Negative for hematuria, frequent nighttime urination/ nocturia, erectile dysfunction or abnormal vaginal bleeding Musc Musc: Positive for muscle aches/ myalgia (leg cramps at night); negative for balance problems, muscle weakness or joint pain Skin Skin: Negative redness, non-healing lesions, unusual bruising, skin ulcer, wounds, jaundice, other or rash Neuro Neuro: Negative for weakness, headache(s), frequent falls, blurry vision, double vision, dizziness, lightheadedness, near syncope, syncope, orthostatic symptoms, confusion, memory loss, restless legs, vertigo, seizures, lack of coordination or other Valentín Hematologic/Lymphatic: Negative for easy bleeding, easy bruising, enlarged lymph nodes or other Endo Endo: Negative for fatigue, excessive sweating, cold intolerance, heat intolerance, flushing, increased thirst/drinking, increased hunger, hair loss, hair growth or other Psych Psych: Negative for anxiety, depression, thoughts of harming anyone, thoughts of harming yourself, visual hallucinations, panic attacks or audible hallucinations Allergy Allergy/Immunology: Negative for lip swelling, Negative for tongue swelling, Negative for rash, Negative for throat swelling, Negative for hives Cardiology Exam Const Appearance: cooperative, healthy appearing and no acute distress Nutritional Appearance: well nourished Orientation: alert, oriented x3 and oriented to person Head Head: normal to inspection, atraumatic and normocephalic Nose: external nose normal Face and Sinus: face symmetric Mouth: oral mucosae normal Eyes General: appearance normal, both eyes and all related structures Eyelids: eyelids normal Conjunctivae: conjunctivae normal Pupils: PERRL and normal by confrontation EOM: EOM intact bilaterally Neck Neck: normal visual inspection and full ROM Carotids: normal carotid upstroke Chest Chest inspection: normal inspection of the chest Auscultation: Bilateral: Clear to Auscultation Cardio Palpation: normal PMI Rate: regular rate Rhythm: regular rhythm Heart sounds: S1 normal and S2 normal GI GI: normal to inspection, no hepatosplenomegaly and bowel sounds present Neuro General: alert, oriented x3, awake, CN's II-XI intact bilaterally and moves all extremities Skin Skin: no rashes or lesions noted Extremities Pulses: Normal: Right Femoral Pulse, Left Femoral Pulse, Right Dorsalis Pedis Pulse, Left Dorsalis Pedis Pulse, Right Posterior Tibial Pulse, Left Posterior Tibial Pulse, Right Radial Pulse, Left Radial Pulse Lower Extremity Edema: None: Bilateral Psych Psychological: normal affect Assessment AND Plan 1. Atherosclerosis of coronary artery of tolowa dee-ni' heart without angina pectoris I25.10 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 Plan 1. Coronary artery disease: Patient has known coronary disease of his LAD, but is asymptomatic at this time. He denies any exertional chest pain, angina, shortness of breath other than when he runs out of his inhalers. He has successfully quit smoking and is doing quite well. He is compliant with his medications. Recommend continuing baby aspirin and lisinopril. Should the patient require intervention at any point in the future would recommend bare-metal stenting giving his history of GI bleed in the past. 2. CKD (chronic kidney disease) stage 4, GFR 15-29 ml/min N18.4 Plan 2. Chronic kidney disease: I recommended he see Dr. Abner Rutherford of his associates with respect to his stage IV chronic kidney disease. Patient has agreed to see Dr. Abner Rutherford of his associates. He does not wish to see Dr. Chapman. Orders Referrals: 3. COPD with acute exacerbation J44.1 Plan 3. COPD: Patient has previously seen Dr. Ocampo in the past with respect to his COPD. Thankfully he is quit smoking. Recommend that we re-consult with Dr. Ocampo and have him seen on a periodic basis. 4. Return office in 6 months. This note was generated using a voice recognition system and there may be incorrect words, spelling or punctuation that were not noted when reviewing the office note prior to saving. Orders Referrals: Plan Detail Other Orders Referrals: Other Medications Discontinued: Follow Up +6M (Jimenez.) Coding Level of Care Code Off vis,est,level 3 Diagnoses Atherosclerosis of coronary artery of tolowa dee-ni' heart without angina pectoris I25.10 CKD (chronic kidney disease) stage 4, GFR 15-29 ml/min N18.4 COPD with acute exacerbation J44.1 Coding Level of Care Code Off vis,est,level 3 Diagnoses Atherosclerosis of coronary artery of tolowa dee-ni' heart without angina pectoris I25.10 CKD (chronic kidney disease) stage 4, GFR 15-29 ml/min N18.4 COPD with acute exacerbation J44.1 06/16/18 1527 <Electronically signed by Aj Jimenez MD> Date Aj Jimenez MD Cosigner Signature: Date (if applicable) CC: Jalen Rodríguez MD CBC W/DIFF, AUTOMATED Collected: 12/30/2017 Status: F Source: [facility] 12:04 PM [facility] REPOSITORY TYPE CODE TESTS RESULT OUT OF RANGE REFERENCE UNITS LAB L100.1000 4.4-11.0 K/mm3 Normal WBC 8.0 LAB L100.1200 4.6-6.2 M/mm3 Normal RBC 4.68 LAB L100.1300 13.0-16.5 g/dl Normal HGB 13.6 LAB L100.1400 40-54 % Normal HCT 42.7 LAB L100.1500 80-94 fL Normal MCV 91.2 LAB L100.1600 27.0-32.0 pg Normal MCH 29.1 LAB L100.1700 32-36 g/gl Low MCHC 31.9 LAB L100.1810 11.6-14.6 % Normal RDW CV 13.6 LAB L100.1820 35.1-43.9 fl High RDW SD 44.2 LAB L100.1900 150-450 K/mm3 Normal PLT 245 LAB L100.2000 6.2-12.0 fl Normal MPV 9.9 LAB L100.2100 47-70 % High NEUT% 87.8 LAB L100.2200 19-41 % Low LY% 9.0 LAB L100.2300 0-10 % Normal MONO% 2.4 LAB L100.2400 0-5 % Normal EO% 0.4 LAB L100.2500 0-1 % Normal BASO% 0.0 LAB L100.2550 0.0-0.9 % Normal IM GRAN % 0.400 Result Comment: IG% - Immature Granulocytes (promyelocytes, myelocytes and metamyelocytes) > 1% indicates that a LEFT SHIFT is Present. LAB L100.2620 2.0-7.7 X10 3/uL Normal Absolute Neut 7.0 LAB L100.2720 0.83-4.51 X10 3/ul Low Absolute Lymph 0.72 Performed By: #### L100.0100 #### [facility] [address] [place], [place], [address] COMPREHENSIVE METABOLIC Collected: 12/30/2017 Status: F Source: [facility] 12:04 PM [facility] REPOSITORY TYPE CODE TESTS RESULT OUT OF RANGE REFERENCE UNITS LAB L501.0100 74-106 mg/dL Normal GLU 84 Result Comment: Please note revised GLUCOSE reference range effective 2017. LAB L501.1000 7-18 mg/dL High BUN 28 LAB L501.1100 0.70-1.30 mg/dL High CREAT,SERUM 1.81 Result Comment: The validity of the calculated GFR AND GFRAA in patients over 70 years has not been determined. Clinical correlation is essential. LAB L501.1110 >60 mL/min Low EST GFR 40 Result Comment: Non- GFR Calc LAB L501.1115 >60 mL/min Low EST GFR - AA 48 Result Comment: GFR Calc LAB L501.1300 10-20 RATIO Normal BUN/CRE 15.5 LAB L501.1500 6.4-8.2 g/dL T Normal PROT 6.9 LAB L501.1800 3.2-5.0 g/dL Normal ALB 3.8 LAB L501.1950 2.2-4.2 g/dL Normal GLOB 3.1 LAB L501.2000 0.9-2.4 RATIO Normal A/G 1.2 LAB L501.2200 8.5-10.1 mg/dL CA Normal 8.7 LAB L501.4100 15-37 U/L Normal AST 18 LAB L501.4305 45-117 U/L Normal ALK P 90 LAB L501.4405 16-61 U/L Normal ALT 30 Result Comment: Please note revised ALT reference range effective 2017. LAB L501.4600 0.20-1.00 mg/dL Normal T BILI 0.70 LAB L501.5300 136-145 mmol/L Normal NA 141 LAB L501.5600 3.5-5.1 mmol/L Normal K 3.5 LAB L501.5900 98-107 mmol/L Normal CL 102 LAB L501.6100 21.0-32.0 mmol/L Normal CO2 32.0 LAB L501.6200 5-15 Normal GAP 7 Performed By: #### L500.4050, L501.9520, L501.9910 #### [facility] [address] [place], [address] THYROID STIM HORMONE Collected: 12/30/2017 Status: F Source: [place] (TSH) 12:04 PM [facility] REPOSITORY TYPE CODE TESTS RESULT OUT OF RANGE REFERENCE UNITS LAB L501.9520 0.358-3.74 uIU/mL Normal TSH 1.66 Performed By: #### L500.4050, L501.9520, L501.9910 #### [facility] [address] [address] [place], [place], [address] PSA,TOTAL - ANNUAL Collected: 12/30/2017 Status: F Source: [place] SCREEN 12:04 PM [facility] REPOSITORY TYPE CODE TESTS RESULT OUT OF RANGE REFERENCE UNITS LAB L501.9910 0.00-4.00 ng/mL Normal PSA,TOT 1.27 SCREEN Result Comment: This test was performed using the TPSA assay method for the [employer] chemistry system. Values obtained with different assay methods cannot be used interchangably. When changing PSA assays in the course of monitoring a patient, additional sequential testing should be carried out to confirm baseline values. Performed By: #### L500.4050, L501.9520, L501.9910 #### [facility] [address] [place], [place], [address] HEPATITIS C ANTIBODIES Collected: 12/30/2017 Status: F Source: [place] 12:04 PM [facility] REPOSITORY TYPE CODE TESTS RESULT OUT OF RANGE REFERENCE UNITS LAB L3100.0650 0.0-0.9 s/co ratio Normal HEP C AB <0.1 Result Comment: Negative: < 0.8 Indeterminate: 0.8 - 0.9 Positive: > 0.9 The CDC recommends that a positive HCV antibody result be followed up with a HCV Nucleic Acid Amplification test (429565). Performed at: - [facility] [address] [id number] Robotics Application Engineer: Boone Wong PhD, Phone: [phone] Performed By: #### L3100.0625 #### [facility] (refer to report for specific site) refer to report for address and phone number 12 LEAD ELECTROCARDIOGRAM Observed: 12/22/2017 Status: F Source: [place] 1:45 PM [facility] REPOSITORY [facility] Cardiovascular Services [address] [place] [id number] 12 Lead EKG 12/20/17 0325 MR#: [id number] Acct: [id number] Name: MARK SERRANO Rep #: [id number] : 1950 67 From: Robert Campbell MD Attending Dr: Dalia Roberson MD Status: DIS IN Ordering Dr: Leti Lopez MD Date: 12/20/17 Location: ICU Sex: M C Admitted: 12/20/17 Test Reason : SOB Blood Pressure : / mmHG Vent. Rate : 106 BPM Atrial Rate : 106 BPM P-R Int : 180 ms QRS Dur : 082 ms QT Int : 330 ms P-R-T Axes : 081 -56 073 degrees QTc Int : 438 ms Sinus tachycardia Left axis deviation Abnormal ECG Confirmed by ROBERT CAMPBELL MD ([id number]), video effects editor CRISTO SANTOS ([id number]) on 12/22/2017 1:45:08 PM Referred By: Aj Jimenez Confirmed By:ROBERT CAMPBELL MD 12/22/17 2785 Date Robert Campbell MD CC: Leti Lopez MD; Jalen Rodríguez MD Signed DISCHARGE SUMMARY Observed: 12/22/2017 Status: F Source: [place] 7:31 AM [facility] REPOSITORY [facility] Medical Records Department [address] [place] [address] Discharge Summary 12/22/17 0730 MR#: [id number] Acct: [id number] Name: MARK SERRANO Rep #: [id number] : 1950 67 From: Dalia Roberson MD PCP: Jalen Rodríguez MD, Chi Status: ADM IN Y Location: ICU [id number] Discharge Date and Diagnosis - Problem List Patient Problems: Active and Suspected Problems (Last Reviewed 11/25/17 @ 14:18 by Marjorie Cárdenas) COPD with acute exacerbation (Acute) Date of Admission: 12/20/17 Date of Discharge: 12/22/17 - Primary Discharge Diagnosis Active and Suspected Problems (Last Reviewed 11/25/17 @ 14:18 by Marjorie Cárdenas) COPD with acute exacerbation (Acute) - Secondary Discharge Diagnosis Chronic Problems (Last Reviewed 11/25/17 @ 14:18 by Marjorie Cárdenas) Non-rheumatic tricuspid valve insufficiency (Chronic) Atherosclerosis of coronary artery of tolowa dee-ni' heart without angina pectoris (Chronic) Nicotine abuse (Chronic) Hypertension (Chronic) COLD (chronic obstructive lung disease) (Chronic) CKD (chronic kidney disease) stage 4, GFR 15-29 ml/min (Chronic) Following with Dr. Chapman [facility] Course and Treatment Imaging Results: Clinical Impression(s) from Imaging Studies Chest X-Ray 12/20/17 03:10 IMPRESSION: COPD. Progression of chronic interstitial lung disease. Electronically Signed: Tanner Bronson MD at 3:30 EST , Service support , Operations: None Summary of Care Provided: 67-year-old gentleman with past medical history significant for CKD stage IV hypertension COPD admitted with progressive shortness of breath and assessment of acute hypoxic respiratory failure secondary to COPD exacerbation made started on BiPAP admitted to the intensive care unit 1. Acute hypoxic and hypercapnic respiratory failure secondary to COPD with exacerbation admitted to the intensive care unit with consultation placed a pulmonary medicine patient placed on noninvasive ventilation BiPAP in addition to bronchodilator treatment steroid as well as antibiotics; did adjust doses of steroids and was discharged home following stabilization of his medical condition plan is for patient to follow-up with pulmonary medicine as outpatient within 1-2 weeks as well as with his PCP 2. CKD stage III 3. Hypertension-blood pressure controlled, home medications continued with dose adjustment as needed 4. CAD per history 5. Generalized osteoarthritis 6. DVT prophylaxis SC heparin Discharge Diet: No Restrictions Home Medications: Medications to take at Discharge Albuterol Aerosols [Ventolin Aerosols] 2.5 mg INHALATION Q4H PRN PRN 01/17/15 Loperamide [Imodium] 2 mg PO DAILY 01/17/15 atorvastatin 20 mg tablet 20 mg PO QDAY #30 tab 11/25/17 lisinopril 5 mg tablet 5 mg PO QDAY #30 tab 11/25/17 Mesalamine [Pentasa] 500 mg PO DAILY 12/20/17 Budesonide/Formoterol 160/4.5 [Symbicort 160/4.5 Mcg Inhaler (SP)] 1 puff INHALATION DAILY #1 inhaler 12/22/17 Levofloxacin [Levaquin] 250 mg PO DAILY@0600 #5 tab 12/22/17 Prednisone 10 mg PO UD #30 tab 12/22/17 Tiotropium [place] [Spiriva 18 MCG] 1 puff INHALATION DAILY #1 inhaler 12/22/17 Following Prescrptions Were Given to Patient: Budesonide/Formoterol 160/4.5 [Symbicort 160/4.5 Mcg Inhaler (SP)] 1 puff INHALATION DAILY #1 inhaler Levofloxacin [Levaquin] 250 mg PO DAILY@0600 #5 tab Prednisone 10 mg PO UD #30 tab Tiotropium [place] [Spiriva 18 MCG] 1 puff INHALATION DAILY #1 inhaler Primary Care Physician: Care Physician,No Primary [NON-STAFF] - Please follow up with your Primary Care Physician in: in 1- 2 weeks Please Follow Up With: Delma Frey NP-C When: in 1-2 weeks Disposition: Home Minutes spent on discharge:: 35 Patient Condition:: Stable Meaningful Use Info Meaningful Use Diagnoses (Choose all that apply): None applicable Code Visit Inpatient E AND M: 91761 Disch Hosp 12/22/17 0731 <Electronically signed by Dalia Roberson MD> Date Dalia Roberson MD Cosigner Signature (if applicable): Date CC: Dalia Roberson MD; Jalen Rodríguez MD Signed DISCHARGE INSTRUCTION Observed: 12/22/2017 Status: F Source: [facility] 7:30 AM [facility] REPOSITORY [facility] Medical Records Department [address] [place] [address] Instructions for Home/Discharge Instructions 12/22/17 0728 MR#: [id number] Acct: [id number] Name: MARK SERRANO Rep #: [id number] : 1950 67 From: Dalia Roberson MD PCP: Jalen Rodríguez MD, Chi Status: ADM IN You will use the following diet at home:: Regular Your food should be the consistency of: Regular Allergies/Adverse Reactions: Allergies Penicillins Adverse Reaction (Verified 11/25/17 14:18) Other Medications to take at Discharge Albuterol Aerosols [Ventolin Aerosols] 2.5 mg INHALATION Q4H PRN PRN 01/17/15 Loperamide [Imodium] 2 mg PO DAILY 01/17/15 atorvastatin 20 mg tablet 20 mg PO QDAY #30 tab 11/25/17 lisinopril 5 mg tablet 5 mg PO QDAY #30 tab 11/25/17 Mesalamine [Pentasa] 500 mg PO DAILY 12/20/17 Budesonide/Formoterol 160/4.5 [Symbicort 160/4.5 Mcg Inhaler (SP)] 1 puff INHALATION DAILY #1 inhaler 12/22/17 Levofloxacin [Levaquin] 250 mg PO DAILY@0600 #5 tab 12/22/17 Prednisone 10 mg PO UD #30 tab 12/22/17 Tiotropium [place] [Spiriva 18 MCG] 1 puff INHALATION DAILY #1 inhaler 12/22/17 The following prescriptions were given: Budesonide/Formoterol 160/4.5 [Symbicort 160/4.5 Mcg Inhaler (SP)] 1 puff INHALATION DAILY #1 inhaler Levofloxacin [Levaquin] 250 mg PO DAILY@0600 #5 tab Prednisone 10 mg PO UD #30 tab Tiotropium [place] [Spiriva 18 MCG] 1 puff INHALATION DAILY #1 inhaler Primary Care Physician: Care Physician,No Primary [NON-STAFF] - Please follow up with your Primary Care Physician in: in 1- 2 weeks Please Follow Up With: Delma Frey NP-C When: in 1-2 weeks Proposed Discharge Date: 12/22/17 12/22/17729 <Electronically signed by Dalia Roberson MD> Date Dalia Roberson MD CC: Jose D Wolff D.O.; Jalen Rodríguez MD CBC-COMPLETE BLOOD CNT Collected: 12/22/2017 Status: F Source: [facility] NO DIFF 5:50 AM [facility] REPOSITORY TYPE CODE TESTS RESULT OUT OF RANGE REFERENCE UNITS LAB L100.1000 4.4-11.0 K/mm3 Normal WBC 8.2 LAB L100.1200 4.6-6.2 M/mm3 Low RBC 3.57 LAB L100.1300 13.0-16.5 g/dl Low HGB 10.7 LAB L100.1400 40-54 % Low HCT 32.3 LAB L100.1500 80-94 fL Normal MCV 90.5 LAB L100.1600 27.0-32.0 pg Normal MCH 30.0 LAB L100.1700 32-36 g/gl Normal MCHC 33.1 LAB L100.1810 11.6-14.6 % Normal RDW CV 13.0 LAB L100.1820 35.1-43.9 fl Normal RDW SD 41.9 LAB L100.1900 150-450 K/mm3 Low PLT 143 LAB L100.2000 6.2-12.0 fl Normal MPV 11.1 Performed By: #### L100.0500 #### [facility] [address], [address] BASIC METABOLIC Collected: 12/22/2017 Status: F Source: [facility] PROFILE (BMP) 5:50 AM [facility] REPOSITORY TYPE CODE TESTS RESULT OUT OF RANGE REFERENCE UNITS LAB L501.0100 74-106 mg/dL High GLU 118 Result Comment: Fasting Glucose result from 100 to 125 mg/dL suggests IMPAIRED HOMEOSTASIS per A.D.A. criteria. Please note revised GLUCOSE reference range effective 2017. LAB L501.1000 7-18 mg/dL High BUN 44 LAB L501.1100 0.70-1.30 mg/dL High CREAT,SERUM 1.76 Result Comment: The validity of the calculated GFR AND GFRAA in patients over 70 years has not been determined. Clinical correlation is essential. LAB L501.1110 >60 mL/min Low EST GFR 41 Result Comment: Non- GFR Calc LAB L501.1115 >60 mL/min Low EST GFR - AA 50 Result Comment: GFR Calc LAB L501.1255 ml/min Normal Estimated CRCL 26.67 LAB L501.1300 10-20 RATIO High BUN/CRE 25.0 LAB L501.2200 8.5-10 mg/dL Normal .1 CA 8.9 LAB L501.5300 136-14 mmol/L Normal 5 NA 139 LAB L501.5600 3.5-5. mmol/L Normal 1 K 4.4 LAB L501.5900 98-107 mmol/L Normal CL 103 LAB L501.6100 21.0-3 mmol/L Normal 2.0 CO2 28.0 LAB L501.6200 5-15 Normal GAP 8 Performed By: #### L500.2500, L501.5200 #### [facility] [address] [place], [place], [address] MAGNESIUM Collected: 12/22/2017 Status: F Source: [facility] 5:50 AM [facility] REPOSITORY TYPE CODE TESTS RESULT OUT OF RANGE REFERENCE UNITS LAB L501.5200 1.6-2.6 mg/dL Normal MG 2.0 Result Comment: Please note revised Magnesium reference range effective 2017. Performed By: #### L500.2500, L501.5200 #### [facility] [address] [facility] [place], [address] CBC-COMPLETE BLOOD CNT Collected: 12/21/2017 Status: F Source: [facility] NO DIFF 9:30 AM [facility] REPOSITORY TYPE CODE TESTS RESULT OUT OF RANGE REFERENCE UNITS LAB L100.1000 4.4-11.0 K/mm3 Normal WBC 7.0 LAB L100.1200 4.6-6.2 M/mm3 Low RBC 3.69 LAB L100.1300 13.0-16.5 g/dl Low HGB 10.9 LAB L100.1400 40-54 % Low HCT 32.9 LAB L100.1500 80-94 fL Normal MCV 89.2 LAB L100.1600 27.0-32.0 pg Normal MCH 29.5 LAB L100.1700 32-36 g/gl Normal MCHC 33.1 LAB L100.1810 11.6-14.6 % Normal RDW CV 13.0 LAB L100.1820 35.1-43.9 fl Normal RDW SD 42.6 LAB L100.1900 150-450 K/mm3 Low PLT 117 LAB L100.2000 6.2-12.0 fl Normal MPV 10.8 Performed By: #### L100.0500 #### [facility] [address] [place], [address] BASIC METABOLIC Collected: 12/21/2017 Status: F Source: [place] PROFILE (BMP) 9:30 AM [facility] REPOSITORY TYPE CODE TESTS RESULT OUT OF RANGE REFERENCE UNITS LAB L501.0100 74-106 mg/dL High GLU 230 Result Comment: Glucose result greater than or equal to 200 mg/dL suggests DIABETES MELLITUS per A.D.A. criteria. Please note revised GLUCOSE reference range effective 2017. LAB L501.1000 7-18 mg/dL High BUN 39 LAB L501.1100 0.70-1.30 mg/dL High CREAT,SERUM 2.01 Result Comment: The validity of the calculated GFR AND GFRAA in patients over 70 years has not been determined. Clinical correlation is essential. LAB L501.1110 >60 mL/min Low EST GFR 35 Result Comment: Non- GFR Calc LAB L501.1115 >60 mL/min Low EST GFR - AA 43 Result Comment: GFR Calc LAB L501.1255 ml/min Normal Estimated CRCL 23.35 LAB L501.1300 10-20 RATIO Normal BUN/CRE 19.4 LAB L501.2200 8.5-10 mg/dL Normal .1 CA 8.7 LAB L501.5300 136-14 mmol/L Normal 5 NA 138 LAB L501.5600 3.5-5. mmol/L Normal 1 K 4.1 LAB L501.5900 98-107 mmol/L Normal CL 102 LAB L501.6100 21.0-3 mmol/L Normal 2.0 CO2 26.0 LAB L501.6200 5-15 Normal GAP 10 Performed By: #### L500.2500, L501.5200 #### [facility] [address] [facility] [place], [address] MAGNESIUM Collected: 12/21/2017 Status: F Source: [place] 9:30 AM [facility] REPOSITORY TYPE CODE TESTS RESULT OUT OF RANGE REFERENCE UNITS LAB L501.5200 1.6-2.6 mg/dL Normal MG 1.8 Result Comment: Please note revised Magnesium reference range effective 2017. Performed By: #### L500.2500, L501.5200 #### [facility] [address] [facility] [place], [address] CONSULTATION Observed: 12/20/2017 Status: F Source: [place] 2:31 PM [facility] REPOSITORY [facility] Medical Records Department [address] [place] [address] Consultation 12/20/17 0647 MR#: [id number] Acct: [id number] Name: MARK SERRANO Birdie Rep #: [id number] : 1950 67 From: Jose D Wolff DO PCP: Marcos ABRAHAM,Jalen Chi Status: ADM IN Location: ICU ICU03-1 Reason for Consult Date of Consultation: 12/20/17 Reason for Consultation: COPD exacerbation History of Present Illness: The patient is a 67-year-old male, with a history as outlined below, who presented to the emergency department on December 20 with complaints of shortness of breath, that was progressive in nature over 3 days, along with a productive cough. The patient does have end-stage COPD, based upon pulmonary function testing last completed in October 2015. He currently follows with Dr. Ocampo on an outpatient basis. The patient's last FEV1 was noted to be less than 1L (30% of predicted). He does have dynamic hyperinflation and air-trapping. Surface echocardiogram last completed in December 2014 revealed normal LV size with an ejection fraction of 60%. Pulmonary artery systolic pressure at that time was estimated to be 41 mmHg. The patient was last seen in the pulmonary medicine clinic in May 2016. He subsequently no showed for a follow-up appointment in August 2016. The patient also has a history of coronary artery disease, for which she follows with Dr. Jimenez on an outpatient basis. The patient states that he was lost to follow-up with Dr. Ocampo, as he stated that he did not like having to undergo stress testing that was ordered by him. Therefore, he decided to stop following with him. He does currently follow with Dr. Rodríguez. He states that he is on a triple therapy inhaler regimen with Symbicort and Spiriva. However, he ran out of his Symbicort 5 days ago. On presentation to the emergency department, the patient was noted to be afebrile, tachycardic and tachypneic. He was reportedly hypoxic, requiring high flow supplemental oxygen and eventual BiPAP therapy. The patient was also exceedingly hypertensive with a blood pressure documented to be 214/114. Laboratory evaluation revealed no evidence of a leukocytosis. Chemistry profile was notable only for chronic kidney disease with a creatinine 1.85. Serum lactate was mildly elevated 2.7. Both BNP and troponin were negative. Plain film chest x-ray showed no acute infiltrative process, with the exception of hyperinflated lung pacheco. The patient was given aerosol treatments, steroids and antibiotics. Due to the use of noninvasive positive pressure ventilation, the patient was transferred to the medical intensive care unit for ongoing management. Past Medical History Past Medical History (Chronic Problems): Chronic Problems (Last Reviewed 11/25/17 @ 14:18 by Marjorie Cárdenas) Non-rheumatic tricuspid valve insufficiency (Chronic) Atherosclerosis of coronary artery of tolowa dee-ni' heart without angina pectoris (Chronic) Nicotine abuse (Chronic) Hypertension (Chronic) COLD (chronic obstructive lung disease) (Chronic) CKD (chronic kidney disease) stage 4, GFR 15-29 ml/min (Chronic) Following with Dr. Chapman Allergies Penicillins Adverse Reaction (Verified 11/25/17 14:18) Other Home Medications: Ambulatory Orders Medication Instructions Recorded Albuterol Aerosols [Ventolin 2.5 mg INHALATION Q4H PRN PRN 01/17/15 Surgical History: - - left carpal tunnel, L ureteral stent for obstructed stone and removal 07/2013, partial bowel resection Smoking Status: Former smoker - *Family History Paternal History Items: - - Denies family history of coronary artery disease Sibling History Items: Cancer - colon, COPD Review of Systems Constitutional: Denies: Chills, Fever, Night Sweats Eyes: Denies: Blurred vision, Double vision HEENT: Denies: Head Aches, Sinus Congestion, Sinus Drainage Cardiovascular: Denies: Chest Pain, Palpitations Respiratory: Reports: Cough, Shortness of Breath, Sputum production Gastrointestinal: Denies: Abdominal Pain, Nausea, Vomiting Genitourinary: Denies: Dysuria Musculoskeletal: Denies: Joint Pain, Joint Tenderness Skin: Denies: Rash, Wounds Neurological: Denies: Numbness, Tingling, Focal weakness Psychiatric: Denies: Anxiety, Depression, Homicidal Ideations, Suicidal Ideations Hematologic/ Lymphatic: Denies: Easy Bruising, Easy Bleeding Objective: The patient's most recent lab work, culture data and imaging studies have all been personally reviewed. Rapid influenza screen was negative. Blood and sputum cultures are pending. - Physical Exam General: Alert, Cooperative, No apparent distress HEENT: Atraumatic, PERRLA, Normocephalic Oral: Moist Mucosa, No Gingival or Mucosal Lesions/ Ulcerations Neck: Supple, No Nodes, Trachea Midline Lungs: No rhonchi, No rales, Diminished, Wheezes Cardiovascular: Normal S1, Normal S2, No murmurs, No rub noted, No Gallop, Tachycardic Abdomen: Bowel Sounds Present, Soft, Non Tender Extremities: No cyanosis, No edema, Clubbing Skin: No rashes, No breakdown Musculoskeletal: No Tenderness to Palpation of Joints or Extremities, Cachexia, Muscle Wasting Lymphatic: No Cervical, Supraclavicular, or Inguinal Adenopathy Neurological: Neuro grossly intact Psych/Mental Status: Normal Affect, Appropriate Vital Signs Temp Pulse Resp BP Pulse Ox 101.1 F H 109 H 16 149/84 H 96 12/20/17 06:00 12/20/17 06:41 12/20/17 06:41 12/20/17 06:00 12/20/17 06:41 Oxygen Flow Rate 2 Oxygen Delivery Method Nasal Cannula Weight: 104 lb 15.04 oz Body Mass Index (BMI) 17.2 Intake and Output for Last 24 Hours Intake Total 167 / 167 Balance 167 / 167 Laboratory Tests Past 24 Hrs MRSA (PCR) Pending Labs (Last 48 Hours) WBC 8.1 RBC 4.49 L Hgb 13.2 Hct 40.3 MCV 89.8 MCH 29.4 MCHC 32.8 RDW 12.9 RDW Differential 42.1 WBC RBC Hgb Microbiology 12/20/17 03:30 Mucosa - Nasopharyngeal Influenza Types A,B Direct FA ([facility]) - Final Clinical Impression(s) from Imaging Studies Chest X-Ray 12/20/17 03:10 IMPRESSION: COPD. Progression of chronic interstitial lung disease. Electronically Signed: Tanner Bronson MD at 3:30 EST , Service support , Assessment/Plan RECOMMENDATIONS: 1. Continue scheduled aerosol treatments 2. Wean supplemental oxygen to maintain saturations at or above 90% 3. Continue antibiotics and steroids 4. Encourage incentive spirometer use and mobilize patient as tolerated 5. Perform walking oximetry study prior to consideration for discharge from the hospital. 6. Obtain and send a full respiratory viral panel IMPRESSIONS: 1. Acute hypoxemic respiratory failure due to COPD with exacerbation Unclear etiology for the patient's exacerbation. He does not have what appears to be an acute infiltrative process on chest imaging. However, antibiotics will be continued pending finalized sputum culture results. We will plan to check a full respiratory viral panel. The patient does admit that he has been out of his maintenance inhaler medications 5 days, which may have led to his current clinical state. We will plan to continue scheduled aerosol treatments along with IV steroids. If the patient does well over the next 24 hours, he will be transitioned to prednisone by mouth. Wean supplemental oxygen as tolerated. The patient will undoubtedly need to follow-up in the pulmonary medicine clinic, as he has not been seen by Dr. Ocampo since 2016. 2. Chronic kidney disease The patient's creatinine appears to be baseline. Urine output is appropriate. No indication for renal replacement therapy at this time. 3. Coronary artery disease/Crohn's disease/hypertension Complicates care, management, recovery and prognosis. Continue home medications as indicated. This note was generated with [employer] software. It may contain incorrect words, spelling, and punctuation that were not noted in checking the note before signing. DISPOSITION: The patient is medically stable for transfer out of the intensive care unit. Code Visit Inpatient Birdie AND M: [id number] Init Hosp L3 12/20/17 1431 <Electronically signed by Jose D Wolff DO> Date Jose D Wolff DO Cosigner Signature (if applicable): Date CC: Jose D Wolff D.O.; Jalen Rodríguez MD Signed LACTIC ACID Collected: 12/20/2017 Status: F Source: [place] 7:30 AM [facility] REPOSITORY TYPE CODE TESTS RESULT OUT OF RANGE REFERENCE UNITS LAB L503.6005 0.4-2.0 mmol/L Normal LACTIC ACID 1.0 Performed By: #### L503.6005 #### [facility] [address] [place], [place], [id number] Observed: 12/20/2017 Status: F Source: [place] RESPIRATORY PANEL 7:09 AM [facility] MOLECULAR REPOSITORY RP PANEL ADENOVIRUS Not Detected HUMAN METAPHNEUMO Not Detected INFLUENZA A Not Detected INFLUENZA A (SUBTYPE H1) Not Detected INFLUENZA A (SUBTYPE H3) Not Detected INFLUENZA B Not Detected PARAINFLUENZA 1 Not Detected PARAINFLUENZA 2 Not Detected PARAINFLUENZA 3 Not Detected PARAINFLUENZA 4 Not Detected RHINOVIRUS Not Detected RSV A Not Detected RSV B Not Detected NAAT METHOD Testing was performed using nucleic acid amplification Performed By: #### M100.638 #### [facility] [address] [place] [address], [id number] Observed: 12/20/2017 Status: F Source: [place] CULTURE, SPUTUM 6:00 AM [facility] REPOSITORY Gram Stain * This is an amended result. * A prior result that was reported as final has been changed. 12/20/17 1459 by SAW Previously reported as: FINAL Acceptable Specimen? Yes (<25 Epithelial cells per/lpf) Gram Stain 4+ White Blood Cells 2+ Epithelial cells 4+ Gram negative cocco bacillus 2+ Gram positive cocci Resp. Culture Mixed normal respiratory connie. No Haemophilus, Streptococcus pneumoniae, beta-hemolytic Streptococcus or Staphylococcus aureus isolated. Performed By: #### M100.0800 #### [facility] [address] [place], [address] M R STAPH AUREUS Collected: 12/20/2017 Status: F Source: [place] DNA BY PCR 4:50 AM [facility] REPOSITORY Order Comment: Source: NASAL SWAB TYPE CODE TESTS RESULT OUT OF RANGE REFERENCE UNITS LAB L8200.1100 Negative Normal MRSA Negative RESULT Performed By: #### L8200.1000 #### [facility] [place], [address] HISTORY AND PHYSICAL Observed: 12/20/2017 Status: F Source: [place] EXAM 4:19 AM [facility] REPOSITORY [facility] Medical Records Department [address] [place] [id number] History and Physical 12/20/17 0412 MR#: [id number] Acct: [id number] Name: MARK SERRANO Birdie Rep #: [id number] : 1950 67 From: Kam Lowe MD PCP: Marcos ABRAHAM,WISETIVI Status: ADM IN Y Location: ICU ICU03-1 Problem List (1) CKD (chronic kidney disease) stage 4, GFR 15-29 ml/min Status: Chronic Comment: Following with Dr. Chapman (2) COLD (chronic obstructive lung disease) Status: Chronic (3) Hypertension Status: Chronic (4) Nicotine abuse Status: Chronic History of Present Illness Date of Admission: 12/20/17 Chief Complaint: Acute respiratory failure The patient is a 67 year old male w/ h/o CKD IV, HTN, COPD and CAD admitted for acute respiratory failure. PT has been having SOB x 2-3 days. His SOB has been worsening. Nothing appeared to make it better or worse. His SOB is so severe that it interfered with his ADLs today. He has a productive cough. The intensity and frequency of the cough have worsened. No fever or chill. No change in weight. No sick contact. Past Medical History Past Medical History (Chronic Problems): Chronic Problems (Last Reviewed 11/25/17 @ 14:18 by Marjorie Cárdenas) Non-rheumatic tricuspid valve insufficiency (Chronic) Atherosclerosis of coronary artery of tolowa dee-ni' heart without angina pectoris (Chronic) Nicotine abuse (Chronic) Hypertension (Chronic) COLD (chronic obstructive lung disease) (Chronic) CKD (chronic kidney disease) stage 4, GFR 15-29 ml/min (Chronic) Following with Dr. Chapman Allergies Penicillins Adverse Reaction (Verified 11/25/17 14:18) Other Home Medications: Ambulatory Orders Medication Instructions Recorded Albuterol Aerosols [Ventolin 2.5 mg INHALATION Q4H PRN PRN 01/17/15 Surgical History: - - left carpal tunnel, L ureteral stent for obstructed stone and removal 07/2013, partial bowel resection Smoking Status: Former smoker - *Family History Paternal History Items: - - Denies family history of coronary artery disease Sibling History Items: Cancer - colon, COPD Review of Systems Constitutional: Denies: Chills, Fever, Weight Change HEENT: Denies: Head Aches, Sinus Congestion, Sinus Drainage Cardiovascular: Denies: Chest Pain, Palpitations Respiratory: Reports: Cough, Shortness of Breath, Shortness of breath at rest, Sputum production, Wheezing Gastrointestinal: Denies: Abdominal Pain, Nausea, Vomiting Genitourinary: Denies: Dysuria Musculoskeletal: Denies: Joint Pain, Joint Tenderness Skin: Denies: Rash, Wounds Neurological: Denies: Numbness, Tingling, Focal weakness Psychiatric: Denies: Anxiety, Depression, Homicidal Ideations, Suicidal Ideations Hematologic/ Lymphatic: Denies: Easy Bruising, Easy Bleeding VTE Information - Inpt Only VTE Present on Admission: No VTE Mechan Device Prophylaxis: SCD's VTE Pharm Prophylaxis ordered?: Yes - Physical Exam General: Alert, Oriented x3, Cooperative HEENT: Atraumatic, PERRLA, EOMI, Normocephalic Neck: Supple, No JVD, Negative Carotid Bruits Lungs: Diminished, Rales, Short of Breath, Wheezes Cardiovascular: Regular rate, No murmurs Abdomen: Bowel Sounds Present, Soft, Non Tender Extremities: No edema, Capillary Refill Less than 3 Seconds Skin: No rashes, No breakdown Musculoskeletal: No Tenderness to Palpation of Joints or Extremities Neurological: Cranial nerves II-XII grossly intact Psych/Mental Status: Normal Affect, Appropriate Vital Signs Temp Pulse Resp BP Pulse Ox 98.0 F 106 H 26 H 167/105 H 96 12/20/17 02:47 12/20/17 03:05 12/20/17 03:05 12/20/17 03:30 12/20/17 03:30 Oxygen Flow Rate 6 Oxygen Delivery Method Bi-pap Weight: 47.4 kg Body Mass Index (BMI) 17.1 Microbiology Past 72 Hours 12/20/17 03:30 Influenza Types A,B Direct FA ([facility]) - Final Mucosa - Nasopharyngeal Laboratory Tests Past 24 Hrs WBC 8.1 RBC 4.49 L Hgb 13.2 Hct 40.3 MCV 89.8 MCH 29.4 MCHC 32.8 WBC RBC Hgb Hct MCV MCH MCHC RDW RDW Differential Plt Count MPV Immature Gran % (Auto) Neut % (Auto) Assessment/Plan 67 year old male w/ h/o CKD IV, HTN, COPD and CAD admitted for acute respiratory failure. 1) Acute respiratory failure secondary to COPD exacerbation.: Currently on bipap. C/w with bipap. Will start solumedrol and bronchodilators. C/w levaquin. Chest xray unremarkable No leukocytosis. Cultures pending. Consult pulmonary. 2) CKD IV: C/w supportive care. Will renal dose meds. Avoid nephrotoxic drugs. Surveillance labs 3) Chronic issues: CAD and HTN: Resume home meds. Monitor. 4) Prophylaxis: SCD / heparin. 12/20/17 0419 <Electronically signed by Kam Lowe MD> Date Kam Lowe MD Cosigner Signature: Date (if applicable) CC: Kam Lowe MD; Jalen Rodríguez MD Signed EMERGENCY DEPARTMENT Observed: 12/20/2017 Status: F Source: [place] SUMMARY 3:49 AM [facility] REPOSITORY [facility] Medical Records Department [address] [place] [address] Emergency Department Summary 12/20/17 0253 MR#: [id number] Acct: [id number] Name: MARK SERRANO Rep #: [id number] : 1950 67 From: Leti Lopez MD PCP: Jalen Rodríguez MD, Chi Status: REG ER - ER Visit Summary Date of Service: 12/20/17 Chief Complaint: Shortness of breath History of Present Illness: The patient is a 67 M with history of emphysema, Crohn's disease, hypertension, and GERD resents to the emergency department with shortness of breath. The patient does not on oxygen at home. He states over the past 2-3 days, has had gradually worsening shortness of breath. He does describe productive cough with sputum. He is also had fevers and chills. He states he has had chest tightness and just feels like he cannot breathe. Patient does follow with Dr. Ocampo for pulmonology. He does see Dr. Jimenez for cardiology. He does continue to smoke. He denies any recent sick contacts. He is unsure of the last time he was on steroids for his breathing. Physical Examination: Vital signs reviewed General: Well-nourished, well-developed, moderate to severe respiratory distress Head: Normocephalic, atraumatic Eyes: Pupils equal and reactive, extraocular muscles intact Neck, supple, no lymphadenopathy Heart: Regular tachycardia Respiratory: Diminished with wheezing and accessory muscle use throughout Abdomen: Soft, nontender, nondistended, no peritoneal signs Back: Nontender Extremities: Nontender, no edema, no cords Skin: Normal color no rash Neuro: Alert and oriented, no focal or lateralizing deficits Test Results: ABG shows mild hypercapnia, but normal pH. Screening labs are unremarkable. EKG shows sinus tachycardia but no acute ischemia. Chest x-ray shows chronic fibrosis. Emergency Department Course and Treatment: Patient presents with significant hypoxia. On arrival, his pulse ox was 66%. He had increased work of breathing with significant tachypnea and diminished air movement. Patient was placed immediately on BiPAP. ABG was obtained which is relatively unremarkable. There is evidence of no significant respiratory acidosis. With BiPAP and breathing treatments the patient's aeration had improved. His x-ray does not show focal infiltrate, but given his change in sputum fevers and chills the patient will be covered with Levaquin. Labs are obtained and relatively unremarkable. The patient is much more comfortable on BiPAP. At this time, he will be admitted to the ICU. Patient was discussed with the hospitalist. Treatment Plan: [] Disposition: Admit Impression: 1. Acute respiratory failure 2. COPD exacerbation This note was generated with [employer] software. It may contain incorrect words, spelling, and punctuation that were not noted in review of the chart prior to signing ED Disposition - Plan for ED Patient: Chief Complaint: Shortness of Breath Referrals: Care Physician,No Primary [NON-STAFF] - What to do if you have Problems For any increased pain, shortness of breath, bleeding, nausea or vomiting, chest pain, or any unexpected problems, contact your Primary Care Provider. Call [facility] ([phone]) or report to the closest Emergency Room. Call 911 if necessary. 12/20/17 0349 <Electronically signed by Leti Lopez MD> Date Leti Lopez MD Cosigner Signature (If Indicated): Date CC: Jalen Rodríguez MD Observed: 12/20/2017 Status: F Source: [place] INFLUENZA A+B ([place]APID 3:30 [place] [facility] Order Date: 12/20/17 FLU A/B Rapid Negative test results should be confirmed by culture. Order Rapid Viral Culture for Influenzae A+B ([id number]) if clinically indicated. Influenza Ag, Direct Presumptive NEGATIVE for Influenza A/B Antigen (See Note) Performed By: #### M101.0101 #### [facility] [address] [place], [address] BLOOD GASES BY CPS Collected: 12/20/2017 Status: F Source: [place] 3:16 AM [facility] REPOSITORY TYPE CODE TESTS RESULT OUT OF RANGE REFERENCE UNITS LAB L9000.9990 Normal BLD GAS TYPE ART LAB L9001.1000 Normal SITE L Radial LAB L9001.1010 Normal SAMIRA TEST POS LAB L9001.1050 O2 Normal Delivery Dev Bi / C PAP LAB L9001.1070 RR Normal 12 LAB L9001.1074 Normal FI02 35 LAB L9001.1088 Normal IPAP 12 LAB L9001.1090 Normal EPAP 6 LAB L9001.1104 Normal Results To ED MD LAB L9001.1105 Normal Time Given 312 LAB L9001.1110 7.35-7.45 Low pH - I-STAT 7.33 LAB L9001.1210 35-45 mmHg High pCO2 - ISTAT 48.7 LAB L9001.1310 75-100 mmHG Normal PO2 I-STAT 80 LAB L9001.2300 22-26 mmol/L Normal HCO3 ISTAT 25.7 LAB L9001.2400 -2 to +2 mmol/L BE Normal ISTAT 0 LAB L9001.2415 mmol/L Normal TOTAL CO2 27 ISTAT LAB L9001.2425 95-99 % Normal SO2 ISTAT 95 Performed By: #### L9000.0800 #### [facility] Point of Care [address] [place] [address] Observed: 12/20/2017 Status: F Source: [place] CULTURE, BLOOD (WB) 3:00 AM [facility] REPOSITORY BC No growth in 5 days. Performed By: #### M200.1000 #### [facility] [address] [place], [address] CBC W/DIFF, AUTOMATED Collected: 12/20/2017 Status: F Source: [place] 2:55 AM [facility] REPOSITORY TYPE CODE TESTS RESULT OUT OF RANGE REFERENCE UNITS LAB L100.1000 4.4-11.0 K/mm3 Normal WBC 8.1 LAB L100.1200 4.6-6.2 M/mm3 Low RBC 4.49 LAB L100.1300 13.0-16.5 g/dl Normal HGB 13.2 LAB L100.1400 40-54 % Normal HCT 40.3 LAB L100.1500 80-94 fL Normal MCV 89.8 LAB L100.1600 27.0-32.0 pg Normal MCH 29.4 LAB L100.1700 32-36 g/gl Normal MCHC 32.8 LAB L100.1810 11.6-14.6 % Normal RDW CV 12.9 LAB L100.1820 35.1-43.9 fl Normal RDW SD 42.1 LAB L100.1900 150-450 K/mm3 Normal PLT 159 LAB L100.2000 6.2-12.0 fl Normal MPV 10.4 LAB L100.2100 47-70 % High NEUT% 78.8 LAB L100.2200 19-41 % Low LY% 14.1 LAB L100.2300 0-10 % Normal MONO% 5.6 LAB L100.2400 0-5 % Normal EO% 1.2 LAB L100.2500 0-1 % Normal BASO% 0.2 LAB L100.2550 0.0-0.9 % Normal IM GRAN % 0.100 Result Comment: IG% - Immature Granulocytes (promyelocytes, myelocytes and metamyelocytes) > 1% indicates that a LEFT SHIFT is Present. LAB L100.2620 2.0-7.7 X10 3/uL Normal Absolute Neut 6.4 LAB L100.2720 0.83-4.51 X10 3/ul Normal Absolute Lymph 1.14 Performed By: #### L100.0100 #### [facility] [address] [place] [address]. [place], [place], [id number] BASIC METABOLIC Collected: 12/20/2017 Status: F Source: [place] PROFILE (BMP) 2:55 AM [facility] REPOSITORY Order Comment: 'TROP' Serial specimen #1, #2, #3, or #4: 1 TYPE CODE TESTS RESULT OUT OF RANGE REFERENCE UNITS LAB L501.0100 74-106 mg/dL High GLU 135 Result Comment: Fasting Glucose result greater than or equal to 126 mg/dL suggests DIABETES MELLITUS per A.D.A. criteria. Please note revised GLUCOSE reference range effective 2017. LAB L501.1000 7-18 mg/dL High BUN 26 LAB L501.1100 0.70-1.30 mg/dL High CREAT,SERUM 1.85 Result Comment: The validity of the calculated GFR AND GFRAA in patients over 70 years has not been determined. Clinical correlation is essential. LAB L501.1110 >60 mL/min Low EST GFR 39 Result Comment: Non- GFR Calc LAB L501.1115 >60 mL/min Low EST GFR - AA 47 Result Comment: GFR Calc LAB L501.1255 ml/min Normal Estimated CRCL 25.27 LAB L501.1300 10-20 RATIO Normal BUN/CRE 14.1 LAB L501.2200 8.5-10 mg/dL Normal .1 CA 9.1 LAB L501.5300 136-14 mmol/L Normal 5 NA 139 LAB L501.5600 3.5-5. mmol/L Normal 1 K 3.9 LAB L501.5900 98-107 mmol/L Normal CL 101 LAB L501.6100 21.0-3 mmol/L Normal 2.0 CO2 28.0 LAB L501.6200 5-15 Normal GAP 10 Performed By: #### L500.2500, L501.4010 #### [facility] [address] [facility] [place], [place], [id number] TROPONIN-I Collected: 12/20/2017 Status: F Source: [place] 2:55 AM [facility] REPOSITORY Order Comment: 'TROP' Serial specimen #1, #2, #3, or #4: 1 TYPE CODE TESTS RESULT OUT OF RANGE REFERENCE UNITS LAB L501.4010 <0.06 ng/mL Normal < 0.02 TROPONIN-I Result Comment: TROPONIN-I EXPECTED VALUES <0.05 NEGATIVE 0.06 - 0.59 AT RISK OF MT > OR = 0.60 SUGGEST MT Performed By: #### L500.2500, L501.4010 #### [facility] [address] [facility] [place], [place], [id number] BNP,B-TYPE NATRIURETIC Collected: 12/20/2017 Status: F Source: [place] PEPTIDE 2:55 AM [facility] REPOSITORY TYPE CODE TESTS RESULT OUT OF RANGE REFERENCE UNITS LAB L503.6620 0-100 pg/mL Normal B-TYPE 64.4 GRACIELA PEP Performed By: #### L503.6620 #### [facility] [address] [place], [address] LACTIC ACID Collected: 12/20/2017 Status: F Source: [place] 2:55 AM [facility] REPOSITORY Order Comment: Yes/No query for Sepsis Lactate Rule Y TYPE CODE TESTS RESULT OUT OF REFERENCE UNITS RANGE LAB L503.6005 0.4-2.0 mmol/L High LACTIC ACID 2.7 Result Comment: Critical Result(s) Called at: 04:11:07 12/20/2017 by: OPAL GARCIA RN ED Performed By: #### L503.6005 #### [facility] [address] [place], [address] Observed: 12/20/2017 Status: F Source: [place] CULTURE, BLOOD (WB) 2:55 AM [facility] REPOSITORY BC No growth in 5 days. Performed By: #### M200.1000 #### [facility] [address] [facility] [place], [address] CHEST 1 VIEW Observed: 12/20/2017 Status: F Source: [place] (PORTABLE) 2:51 AM [facility] REPOSITORY [facility] Imaging Services [address] [place] [address] [place] [address] Chest 1 View (Portable) MR#: [id number] Acct: [id number] Name: MARK SERRANO Birdie Rep #: [id number] : 1950 M 67 From: Tanner Bronson PCP: Care Physician, No Primary Status: PRE ER Study: Chest 1 View (Portable) Date of Exam: 12/20/17 Exam# [id number] Ordering Dr: Leti Lopez MD STUDY: X-RAY CHEST REASON FOR EXAM: Male, 67 years old. Shortness of breath. TECHNIQUE: AP portable chest. COMPARISON: August 04, 2016. FINDINGS: The lungs are hyperinflated. Fibrosis right upper lobe and right cardiophrenic angle new since the prior study. No effusions. No pneumothorax. Normal size heart. Normal mediastinum and alo. Normal visualized pulmonary arteries. Normal visualized aortic arch and descending thoracic aorta. Normal visualized thoracic spine. Normal visualized ribs, clavicles, and shoulders. There is no demonstrated abnormality of the visualized soft tissue structures of the upper abdomen. RAD/Chest 1 View (Portable) IMPRESSION: COPD. Progression of chronic interstitial lung disease. Electronically Signed: Tanner Bronson MD at 3:30 EST , Service support , CC: No Primary Care Physician; Leti Lopez MD World Travel Counselor: Signed LIVER PROFILE Collected: 12/10/2017 Status: F Source: [place] 1:40 PM [facility] REPOSITORY TYPE CODE TESTS RESULT OUT OF RANGE REFERENCE UNITS LAB L501.1500 6.4-8.2 g/dL Normal T PROT 6.6 LAB L501.1800 3.2-5.0 g/dL Normal ALB 3.7 LAB L501.1950 2.2-4.2 g/dL Normal GLOB 2.9 LAB L501.4100 15-37 U/L Normal AST 17 LAB L501.4305 45-117 U/L Normal ALK P 96 LAB L501.4405 16-61 U/L Normal ALT 24 Result Comment: Please note revised ALT reference range effective 2017. LAB L501.4600 0.20-1.00 mg/dL Normal T BILI 1.00 LAB L501.4700 0.00-0.30 mg/dL Normal D BILI 0.23 Performed By: #### L500.3400, L500.4100 #### [facility] [address] [place], [address] LIPID PROFILE Collected: 12/10/2017 Status: F Source: [place] 1:40 PM [facility] REPOSITORY TYPE CODE TESTS RESULT OUT OF RANGE REFERENCE UNITS LAB L501.4900 200 mg/dL Normal CHOL 93 Result Comment: <200 mg/dL Desirable 200-240 mg/dL Borderline >240 mg/dL High Risk LAB L501.5000 mg/dL Normal TRIG 50 Result Comment: The drugs N-Acetylcysteine and Metamizole may falsely depress this assay. Serum Triglycerides Reference Interval Normal <150 mg/dL Borderline high 150 - 199 mg/dL High 200 - 499 mg/dL Very High > or = 500 mg/dL LAB L501.6400 mg/dL Normal HDL 49 Result Comment: The drugs N-Acetylcysteine and Metamizole may falsely depress this assay. Reference Range HDL <40 mg/dL Low HDL Cholesterol HDL >or= 60 mg/dL High HDL Cholesterol LAB L501.6500 0-130 mg/dL Normal LDL 34 LAB L501.6600 5-40 mg/dL Normal VLDL 10 Performed By: #### L500.3400, L500.4100 #### [facility] [address] [place], [address] CARDIOLOGY VISIT Observed: 11/25/2017 Status: F Source: [place] REPORT 2:42 PM [facility] REPOSITORY [facility] [address] [place] [address] OFFICE VISIT Date of Service: 11/25/17 MR#: [id number] Acct: [id number] Name: MARK SERRANO Rep #: [id number] : 1950 Provider: Aj Jimenez MD Age/Sex: 67/M Location: [facility] Status: Signed HPI 6 M FU: Chief Complaint: Routine follow-up Details: Mr. Serrano is a very pleasant 67-year-old gentleman with a history of Crohn's disease, previous smoker who quit in June 2016, history of GI bleeding, history of kidney stones, stage IV chronic renal sufficiency with a creatinine clearance of 34, who presented initially to [facility] with substernal chest pain and non-ST elevation myocardial infarction in December 2014. I performed a left heart catheterization which demonstrated a possibly significant LAD stenosis. Given his small troponin release, and questionable lesion, he was placed on baby aspirin and Plavix. He was to undergo a stress test approximately 2 weeks after that to evaluate for possible anterior ischemia, however shortly after discharge he developed lower GI bleeding and presented to [facility] on 01/18[facility]. At that time he was emergently fluid resuscitated and transferred to [facility] where he underwent an EGD 2, several units of packed cells for a hemoglobin of 5. according to the patient either underwent a GI angiogram to look for the bleeding, or a tagged red blood cell scan, we are awaiting those records. Patient is now here in follow-up,and denies any exertional chest pain, angina or shortness of breath. His antihypertensives were discontinued due to his GI bleeding. He did not undergo a stress test due to her previous financial balance. He is currently on baby aspirin. Patient was Previously found to be hypertensive and Dr. Ocampo's office and was started on Norvasc which he is taking without difficulty. He also had an trial of a statin, but this did not agree with him. He has had no further GI bleeding or black tarry stools. As part of his cardiac workup he underwent a non-walking nuclear stress test 10/31/15 which was negative for inducible ischemia demonstrating an EF of 57%. Patient has successfully quit smoking in June 2016. He presented to [facility] ER on 08/12/16 with abdominal pain and flulike symptoms. He was subsequently treated medically and sent home. He denies any exertional angina, chest pain or shortness of breath over his baseline. He appears to have significant COPD. Fortunately, the patient recently ran out of his Lipitor, and then ran out of his lisinopril despite his efforts to try and contact his PCP. Patient denies any exertional angina however he reports worsening dyspnea on exertion, shortness of breath and decreased exercise capacity. He has chronic and severe COPD, and is most likely not on a beta-killian due to this. In our office today his blood pressure is 198/76 and 76 regular. His physical exam is as below. He is quite emaciated given his Crohn's disease, but this is about what he usually looks like. He has no edema. His lipids as of 01/06/15 showed HDL of 64 and LDL of 55. Repeat lipids are pending. His echo as of 01/06 showed an EF of 60%. Intake Vital Signs11/25/17 Height 5 ft 5 in 11/25/17 Weight: 106 lb 11/25/17 Body Mass Index (BMI) 17.6 11/25/17 Blood Pressure 198/76 11/25/17 Respiratory Rate 20 11/25/17 Pulse Rate 76 Intake Visit Reasons: 6 M FU Allergies Penicillins Adverse Reaction (Verified 11/25/17 14:18) Other Medications Albuterol Aerosols [Ventolin Aerosols] 2.5 mg INHALATION Q4H PRN PRN 01/17/15 [History Confirmed 11/25/17] Budesonide/Formoterol 160/4.5 [Symbicort 160/4.5 Mcg Inhaler (SP)] 1 puff INHALATION DAILY 01/17/15 [History Confirmed 11/25/17] Loperamide [Imodium] 2 mg PO DAILY 01/17/15 [History Confirmed 11/25/17] Nitroglycerin [Nitrostat] 0.4 mg SUBLINGUAL Q5M PRN 01/17/15 [History Confirmed 11/25/17] Tiotropium [place] [Spiriva 18 MCG] 1 puff INHALATION DAILY 08/12/16 [History Confirmed 11/25/17] aspirin 81 mg tablet,delayed release 81 mg PO QDAY 11/25/17 [History Confirmed 11/25/17] atorvastatin 20 mg tablet 20 mg PO QDAY #30 tab 11/25/17 [Rx Confirmed 11/25/17] lisinopril 5 mg tablet 5 mg PO QDAY #30 tab 11/25/17 [Rx Confirmed 11/25/17] PFSH Medical History Non-rheumatic tricuspid valve insufficiency (Chronic) Atherosclerosis of coronary artery of tolowa dee-ni' heart without angina pectoris (Chronic) Nicotine abuse (Chronic) Hypertension (Chronic) COLD (chronic obstructive lung disease) (Chronic) CKD (chronic kidney disease) stage 4, GFR 15-29 ml/min (Chronic) Arthritis (Chronic) Crohns disease (Chronic) Non-ST elevation (NSTEMI) myocardial infarction (Chronic) Small bowel obstruction (Resolved) Surgical History History of left heart catheterization (Acute 01/09/15) Family History Father neg FH of ASCVD Social History Smoking Status: Former smoker quit date: 10/25/16 pack-years: 75 alcohol intake: never substance use type: does not use caffeine: Yes Type: coffee Number of servings: 3 ROS Const Const: Negative for fatigue, difficulty sleeping, excessive sweating, weakness, frequent falls or headache(s) Eyes Eyes: Negative for loss of peripheral vision, transient loss of vision, blurry vision or double vision ENT ENT: Negative for Nosebleed/epistaxis, Negative for balance problems, Negative for headache(s), Negative for dizziness Cardio Chest Pain: No Edema: None Muscle aches with walking: None Resp Respiratory: Positive for SOB with activity (SOB with ambulation ) and other (diminished t/o); negative for SOB at rest, SOB orthopnea\SOB lying down or paroxysmal nocturnal dyspnea GI GI: Negative nausea or heartburn : Negative for hematuria Musc Musc: Negative for muscle aches/ myalgia, muscle weakness, joint pain or balance problems Skin Skin: Negative non-healing lesions, unusual bruising or rash Neuro Neuro: Negative for weakness, Negative for frequent falls, Negative for blurry vision, Negative for headache(s), Negative for dizziness, Negative for lightheadedness, Negative for orthostatic symptoms, Negative for double vision, Positive for lack of coordination, Positive for other (Has not taken his lisinopril in 6 days) Valentín Hematologic/Lymphatic: Negative for easy bruising Endo Endo: Negative for fatigue, excessive sweating or increased thirst/drinking Psych Psych: Negative for anxiety or depression Allergy Allergy/Immunology: Negative for hives, Negative for rash Cardiology Exam Const Appearance: cooperative, healthy appearing and no acute distress Nutritional Appearance: well nourished Orientation: alert, oriented x3 and oriented to person Head Head: normal to inspection, atraumatic and normocephalic Nose: external nose normal Face and Sinus: face symmetric Mouth: oral mucosae normal Eyes General: appearance normal, both eyes and all related structures Eyelids: eyelids normal Conjunctivae: conjunctivae normal Pupils: PERRL and normal by confrontation EOM: EOM intact bilaterally Neck Neck: normal visual inspection and full ROM Carotids: normal carotid upstroke Chest Chest inspection: normal inspection of the chest Auscultation: Bilateral: Clear to Auscultation Cardio Palpation: normal PMI Rate: regular rate Rhythm: regular rhythm Heart sounds: S1 normal and S2 normal GI GI: normal to inspection, no hepatosplenomegaly and bowel sounds present Neuro General: alert, oriented x3, awake, CN's II-XI intact bilaterally and moves all extremities Skin Skin: no rashes or lesions noted Extremities Pulses: Normal: Right Femoral Pulse, Left Femoral Pulse, Right Dorsalis Pedis Pulse, Left Dorsalis Pedis Pulse, Right Posterior Tibial Pulse, Left Posterior Tibial Pulse, Right Radial Pulse, Left Radial Pulse Lower Extremity Edema: None: Bilateral Psych Psychological: normal affect Assessment AND Plan Plan 1. Coronary artery disease: No exertional anginal symptoms at this time. Patient's blood pressure is quite high today, and he is not on a beta-killian, most likely due to his severe COPD. I recommend that we restart his lisinopril at 5 mg p.o. daily and repeat his blood pressure in 2 weeks time. My suspicion is that his blood pressure is most likely not well controlled with this low-dose of lisinopril, but we will see as he was on this before. In addition, the patient has had worsening dyspnea on exertion which may be a product of both uncontrolled hypertension and worsening coronary disease. Fortunately he is no longer smoking. Recommended he undergo a dobutamine echocardiogram to determine if he has any anterior ischemia given his known coronary disease in his LAD territory. If this is grossly abnormal for ischemia, he will require repeat catheterization, and probable PCI of his LAD. This was somewhat problematic last time given his GI bleeding requiring blood transfusion during his trial run of aspirin and Plavix. Should he need intervention I would recommend bare metal stenting. 2. Hyperlipidemia: Patient has had no lipid profile noted for the past 3 years. His Lipitor ran out and he did not get it renewed. Recommend restarting Lipitor 20 g p.o. nightly and repeat lipid profile in 6 weeks time. 3. Return office in 6 months. This note was generated using a voice recognition system and there may be incorrect words, spelling or punctuation that were not noted when reviewing the office note prior to saving. Orders Orders: Medications New: Discontinued: dicyclomine Discontinued Reason: Order Chang20 mg (2 x 10 mg) PO ACHS Marjorie Cárdenas ed ondansetron Discontinued Reason: Order Chang4 mg PO Q8H PRN PRN Nausea Marjorie Cárdenas ed Plan Detail Follow Up 6 Months (Tony) Coding Level of Care Code Off vis,est,level 3 Coding Level of Care Code Off vis,est,level 3 11/25/17 9088 <Electronically signed by Aj Jimenez MD> Date Aj De Signature: Date (if applicable) CC: ALLERGIES ALLERGIES DATE TYPE / CODE NAME / CODE REACTION SEVERITY SOURCE 10/25/2018 Drug Penicillins/F0010 Other Unknown [place] Allergy/416 22519(RXNORM) Community 823189([facility] ED CT) Repository 07/06/2018 DRUG PENICILLIN Mental Chg [facility] INGREDI/419 Other [place] 299032([facility] ED CT) /[id number] PENICILLIN [facility] 6([facility] CT) Repository ENCOUNTERS ENCOUNTERS ADMIT/DISCHARGE ACCOUNT NUMBER ADMITTING ENCOUNTER LOCATION SOURCE CLASS 11/15/2018 [id number] Ambulatory [facility] ding:[facility] Repository 11/11/2018/11/15/19 [id number] Ambulatory [address] Main [place] Repository 11/09/2018 [id number] Ambulatory [facility] ding:LAB Repository 10/26/2018/10/30/19 [id number] [place], [facility] [address] [facility] [id number]: 1 10/26/2018 [id number] Agyepong, Ambulatory BMSBuilding: [place] BMS.[facility] Repository 10/26/2018 [id number] [place], Ambulatory BMSBuilding: [place] BMS.[facility] Repository 10/26/2018 [id number] [place], Ambulatory BMSBuilding: [place] BMS.[facility] Repository 10/26/2018 [id number] [place], Ambulatory BMSBuilding: [place] BMS.[facility] Repository 10/26/2018 [id number] [place], Ambulatory BMSBuilding: [place] BMS.[facility] Repository 10/26/2018 [id number] [place], Ambulatory BMSBuilding: [place] [facility]MS.[facility] Repository 10/26/2018/10/30/19 [id number] Ambulatory BMSBuilding: [place] [facility] Repository 10/04/2018 [id number] Ambulatory BMSBuilding: [place] [facility] Repository 10/04/2018 [id number] Ambulatory [facility] ding:PSN Repository 09/28/2018/09/28/20 [id number] Ambulatory BMSBuilding: [place] [facility] [place] 07/06/2018/07/13/20 [id number] DALIA SANTOS Inpatient [address] Repository 07/06/2018/07/13/20 [id number] Jeaneth SANTOS Inpatient [address] MEDICAL Repository CENTERBuildi nRoom: 7106Bed: 02 07/06/2018/07/06/20 [id number] Emergency [address] ding:ED Repository 06/30/2018 [id number] Ambulatory [facility] ding:POLAB3 Repository 06/23/2018/06/23/20 [id number] Ambulatory BMSBuilding: [place] [facility] [place] 06/16/2018/06/16/20 [id number] Ambulatory BMSBuilding: [place] 18 BMS.[facility] Repository 06/14/2018 [id number] Ambulatory BMSBuilding: [place] BMS.[facility] Repository 12/30/2017 [id number] Ambulatory [facility] ding:POLAB3 Repository 12/20/2017/12/22/19 [id number] Kam Lowe Inpatient [address] ding:ICURoom Repository : [id number]: 1 12/20/2017 [id number] Kam Lowe Ambulatory BMSBuilding: [place] BMS.[facility] Repository 12/20/2017 [id number] Kam Lowe Ambulatory BMSBuilding: [place] [facility] 12/20/2017 [id number] [facility] Ambulatory BMSBuilding: [place] [facility] Repository 12/20/2017 [id number] [facility], [facility] Ambulatory BMSBuilding: [place] [facility] 12/20/2017 [id number] [facility], [facility] Ambulatory BMSBuilding: [place] BMS.[facility] Repository 12/20/2017 [id number] [facility], [facility] Ambulatory BMSBuilding: [place] BMS[facility] Rep[facility] 12/10/2017 [id number] Ambulatory [facility] Hospital ding:LAB Repository 11/25/2017/11/25/19 [id number] Ambulatory BMSBuilding: [place] 18 BMS.[facility] Repository 11/25/2017 [id number] Ambulatory BMSBuilding: [place] BMS.[facility] Repository 11/25/2017 [id number] Ambulatory BMSBuilding: [place] BMS.[facility] Repository PAYERS PAYERS ENCOUNTER GUARANTOR PAYER SUBSCRIBER SOURCE 11/15/2018 MARK E Primary MARK E [place] [id number] E Insurance:MEDICARE HORNERDOB: [facility] PART A [id number] [address]Ylp: Number: Repository [id number] () Date:2018-11-09 11/15/2018 Secondary MARK E [place] Insurance:MEDICAIDPol HORNERDOB: [facility] Number: [id number] [facility] [id number] Repository Date:2018-11-09 11/15/2018 Tertiary NOT GIVENUNK [place] Insurance:SELF PAY [facility] Number: Effective Repository Date:2018-11-09 11/09/2018 MARK E Primary AMRK E [place] [id number] E Insurance:MEDICARE HORNERDOB: [facility], PART A [facility] [id number] Hospital [place] [address]Ckz: Number: Repository [id number] (HP) Date:2018-11-09 11/09/2018 Secondary MARK E [place] Insurance:MEDICAIDPol [facility] ic Number: [id number] Hospital [id number] Repository Date:2018-11-09 11/09/2018 Tertiary NOT GIVENUNK [place] Insurance:SELF PAY [facility] Number: Effective Repository Date:2018-11-09 10/26/2018 MARK E Primary MARK E [place] [id number] E Insurance:MEDICARE HORNERDOB: [facility] PART A [facility] [id number] General Hospital [address]Mgf: Number: Repository [id number] (HP) Date:2018-10-25 10/26/2018 Secondary MARK E [place] Insurance:MEDICAIDPol [facility] ic Number: [id number] Hospital [id number] Repository Date:2018-10-25 10/26/2018 Tertiary NOT GIVENUNK [place] Insurance:SELF PAY [facility] Number: Effective Repository Date:2018-10-25 10/26/2018 MARK E Primary MARK E [place] [id number] E Insurance:MEDICARE HORNERDOB: [facility] PART A [facility] [id number] General Hospital [address]Nnz: Number: Repository [id number] (HP) Date:2018-10-25 10/26/2018 Secondary MARK E [place] Insurance:MEDICAIDPol [facility] ic Number: [id number] Hospital [id number] Repository Date:2018-10-25 10/26/2018 Tertiary NOT GIVENUNK [place] Insurance:SELF PAY [facility] Number: Effective Repository Date:2018-10-25 10/26/2018 MARK E Primary MARK E [place] [id number] E Insurance:MEDICARE HORNERDOB: [facility] PART A [facility] [id number] General Hospital [address]Wjf: Number: Repository [id number] (HP) Date:2018-10-25 10/26/2018 Secondary MARK E [place] Insurance:MEDICAIDPol HORNERDOB: [facility] icy Number: [id number] Hospital [id number] Repository Date:2018-10-25 10/26/2018 Tertiary NOT GIVENUNK [place] Insurance:SELF PAY [facility] Number: Effective Repository Date:2018-10-26 10/26/2018 MARK E Primary MARK E [place] [id number] E Insurance:MEDICARE HORNERDOB: [facility] PART A [facility] [id number] Hospital [place] [address]Xqv: Number: Repository [id number] (HP) Date:2018-10-25 10/26/2018 Secondary MARK E [place] Insurance:MEDICAIDPol [facility] ic Number: [id number] Hospital [id number] Repository Date:2018-10-25 10/26/2018 Tertiary NOT GIVENUNK [place] Insurance:SELF PAY [facility] Number: Effective Repository Date:2018-10-26 10/26/2018 MARK E Primary MARK E [place] [id number] E Insurance:MEDICARE HORNERDOB: [facility] PART A [facility] [id number] Hospital [place] [address]Bgl: Number: Repository [id number] (HP) Date:2018-10-25 10/26/2018 Secondary MARK E [place] Insurance:MEDICAIDPol [facility] ic Number: [id number] [place] [address] [id number] Repository Date:2018-10-25 10/26/2018 Tertiary NOT GIVENUNK [place] Insurance:SELF PAY [facility] Number: Effective Repository Date:2018-10-26 10/26/2018 MARK E Primary MARK E [place] [id number] E Insurance:MEDICARE HORNERDOB: [facility] PART A [facility] [id number] Hospital [place] [address]Wly: Number: Repository [id number] (HP) Date:2018-10-25 10/26/2018 Secondary MARK E [place] Insurance:MEDICAIDPol HORNERDOB: [facility] icy Number: [id number] [place] [address] [id number] Repository Date:2018-10-25 10/26/2018 Tertiary NOT GIVENUNK [place] Insurance:SELF PAY [facility] Number: Effective Repository Date:2018-10-26 10/26/2018 MARK E Primary MARK E [place] [id number] E Insurance:MEDICARE HORNERDOB: [facility] PART A [facility] [id number] General Hospital [address]Uxw: Number: Repository [id number] (HP) Date:2018-10-25 10/26/2018 Secondary MARK E [place] Insurance:MEDICAIDPol HORNERDOB: [facility] ic Number: [id number] Hospital [id number] Repository Date:2018-10-25 10/26/2018 Tertiary NOT GIVENUNK [place] Insurance:SELF PAY [facility] Number: Effective Repository Date:2018-10-26 10/26/2018 MARK E Primary MARK E [place] [id number] E Insurance:MEDICARE HORNERDOB: [facility], PART A [facility] [id number] General Hospital [address]Ujf: Number: Repository [id number] (HP) Date:2018-10-25 10/26/2018 Secondary MARK E [place] Insurance:MEDICAIDPol HORNERDOB: [facility] Number: [id number] [place] [address] [id number] Repository Date:2018-10-25 10/26/2018 Tertiary NOT GIVENUNK [place] Insurance:SELF PAY [facility] Number: Effective Repository Date:2018-10-26 10/04/2018 MARK E Primary MARK E [place] [id number] E Insurance:MEDICARE HORNERDOB: [facility] PART A [facility] [id number] General Hospital [address]Jhr: Number: Repository [id number] (HP) Date:2018-07-04 10/04/2018 Secondary MARK E [place] Insurance:MEDICAIDPol HORNERDOB: [facility] ic Number: [id number] [place] [address] [id number] Repository Date:2018-07-04 10/04/2018 Tertiary NOT GIVENUNK [place] Insurance:SELF PAY [facility] Number: Effective Repository Date:2018-10-04 10/04/2018 MARK E Primary MARK E [place] [id number] E Insurance:MEDICARE HORNERDOB: [facility], PART A [facility] [id number] General Hospital [address]Cuf: Number: Repository [id number] (HP) Date:2018-07-04 10/04/2018 Secondary MARK E [place] [facility] ic Number: [id number] Hospital [id number] Repository Date:2018-07-04 10/04/2018 Tertiary NOT GIVENUNK [place] Insurance:SELF PAY [facility] Number: Effective Repository Date:2018-07-04 09/28/2018 MARK E Primary MARK E [place] [id number] E Insurance:MEDICARE HORNERDOB: [facility] PART A [facility] [id number] General Hospital [address]Gkh: Number: Repository [id number] (HP) Date:2018-06-23 09/28/2018 Secondary MARK E [place] Insurance:[facility]: [facility] Number: [id number] Hospital [id number] Repository Date:2018-06-23 09/28/2018 Tertiary NOT GIVENUNK [place] Insurance:SELF PAY [facility] Number: Effective Repository Date:2018-09-21 07/06/2018 MARK E Primary MARK E [facility] HORNERDOB: Insurance:MEDICARE A HORNERDOB: [facility] Number: [id number] Memorial [facility] [id number] [place] [address]Opa: Date: () 07/06/2018 Secondary MARK E [facility] Insurance:[place] HORNERDOB: [facility] MEDICAIDPolicy [id number] Repository Number: [id number] Date: 07/06/2018 MARK E Primary MARK E [place] [id number] E Insurance:MEDICARE HORNERDOB: [facility], PART A [facility] [id number] [facility] [address]Yqr: Number: Repository [id number] (HP) Date:2018-07-06 07/06/2018 Secondary MARK E Joseph Insurance:MEDICAIDPol HORNERDOB: [facility] icy Number: [id number] Hospital [id number] Repository Date:2018-07-06 07/06/2018 Tertiary NOT GIVENUNK Joseph Insurance:SELF PAY [facility] Number: Effective Repository Date:2018-07-06 06/30/2018 MARK E Primary MARK E Joseph [id number] E Insurance:MEDICARE HORNERDOB: [facility], PART A [facility] [id number] General Hospital [address]Cal: Number: Repository [id number] (HP) Date:2018-06-30 06/30/2018 Secondary MARK E [place] Insurance:MEDICAIDPol HORNERDOB: [facility] ic Number: [id number] Hospital [id number] Repository Date:2018-06-30 06/30/2018 Tertiary NOT GIVENUNK Joseph Insurance:SELF PAY [facility] Number: Effective Repository Date:2018-06-30 06/23/2018 MARK E Primary MARK E [place] [id number] E Insurance:MEDICARE HORNERDOB: [facility], PART A [facility] [id number] General Hospital [address]Mcc: Number: Repository [id number] (HP) Date:2018-06-17 06/23/2018 Secondary MARK E Joseph Insurance:MEDICAIDPol HORNERDOB: [facility] ic Number: [id number] Hospital [id number] Repository Date:2018-06-17 06/23/2018 Tertiary NOT GIVENUNK Joseph Insurance:SELF PAY [facility] Number: Effective Repository Date:2018-06-17 06/16/2018 MARK E Primary MARK E G[place] [id number] Insurance:MEDICARE HORNERDOB: [facility], PART A [facility] [id number] [place] [address]Lhb: Number: Repository [id number] (HP) Date:2017-11-25 06/16/2018 Secondary MARK E [place] Insurance:MEDICAIDPol HORNERDOB: [facility] ic Number: [id number] Hospital [id number] Repository Date:2017-11-25 06/16/2018 Tertiary NOT GIVENUNK [place] Insurance:SELF PAY [facility] Number: Effective Repository Date:2018-06-16 06/14/2018 MARK E Primary MARK E Joseph [id number] Insurance:MEDICARE HORNERDOB: [facility] PART A [facility] [id number] General Hospital [address]Fko: Number: Repository [id number] (HP) Date:2018-06-14 06/14/2018 Secondary MARK E G[place] Insurance:MEDICAIDPol HORNERDOB: [facility] Number: [id number] Hospital [id number] Repository Date:2018-06-14 06/14/2018 Tertiary NOT GIVENUNK [place] Insurance:SELF PAY [facility] Number: Effective Repository Date:2018-06-14 12/30/2017 MARK E Primary MARK E Joseph [id number] Insurance:MEDICARE HORNERDOB: [facility] PART A [facility] [id number] [facility] [place] [address]Wie: Number: Repository [id number] (HP) Date:2017-12-30 12/30/2017 Secondary MARK E Joseph Insurance:MEDICAIDPol HORNERDOB: [facility] Number: [id number] Hospital [id number] Repository Date:2017-12-30 12/30/2017 Tertiary NOT GIVENUNK [place] Insurance:SELF PAY [facility] Number: Effective Repository Date:2017-12-30 12/20/2017 MARK E Primary MARK E G[place] [id number] Insurance:MEDICARE HORNERDOB: [facility] PART A [facility] [id number] Hospital [place] [address]Nzd: Number: Repository [id number] (HP) Date:2017-12-20 12/20/2017 Secondary MARK E G[place] Insurance:MEDICAIDPol HORNERDOB: [facility] icy Number: [id number] Hospital [id number] Repository Date:2017-12-20 12/20/2017 Tertiary NOT GIVENUNK [place] Insurance:SELF PAY [facility] Number: Effective Repository Date:2017-12-20 12/20/2017 MARK E Primary MARK E Joseph [id number] Insurance:MEDICARE HORNERDOB: [facility] PART A [facility] [id number] General Hospital [address]Gii: Number: Repository [id number] (HP) Date:2017-12-20 12/20/2017 Secondary MARK E Joseph Insurance:MEDICAIDPol [facility] ic Number: [id number] Hospital [id number] Repository Date:2017-12-20 12/20/2017 Tertiary NOT GIVENUNK Joseph Insurance:SELF PAY [facility] Number: Effective Repository Date:2017-12-20 12/20/2017 MARK E Primary MARK E Joseph [id number] Insurance:MEDICARE HORNERDOB: [facility], PART A [facility] [id number] General Hospital [address]Zsp: Number: Repository [id number] (HP) Date:2017-12-20 12/20/2017 Secondary MARK E Joseph Insurance:MEDICAIDPol HORNERDOB: [facility] ic Number: [id number] Hospital [id number] Repository Date:2017-12-20 12/20/2017 Tertiary NOT GIVENUNK [place] Insurance:SELF PAY [facility] Number: Effective Repository Date:2017-12-20 12/20/2017 MARK E Primary MARK E Joseph [id number] Insurance:MEDICARE HORNERDOB: [facility] PART A [facility] [id number] General Hospital [address]Yva: Number: Repository [id number] (HP) Date:2017-12-20 12/20/2017 Secondary MARK E Joseph Insurance:MEDICAIDPol HORNERDOB: [facility] icy Number: [id number] Hospital [id number] Repository Date:2017-12-20 12/20/2017 Tertiary NOT GIVENUNK [place] Insurance:SELF PAY [facility] Number: Effective Repository Date:2017-12-20 12/20/2017 MARK E Primary MARK E Joseph [id number] Insurance:MEDICARE HORNERDOB: [facility], PART A [facility] [id number] Hospital [place] [address]Ici: Number: Repository [id number] (HP) Date:2017-12-20 12/20/2017 Secondary MARK E [place] Insurance:MEDICAIDPol [facility] ic Number: [id number] Hospital [id number] Repository Date:2017-12-20 12/20/2017 Tertiary NOT GIVENUNK [place] Insurance:SELF PAY [facility] Number: Effective Repository Date:2017-12-20 12/20/2017 MARK E Primary MARK E Joseph [id number] E Insurance:MEDICARE HORNERDOB: [facility], PART A [facility] [id number] Hospital [place] [address]Npq: Number: Repository [id number] (HP) Date:2017-12-20 12/20/2017 Secondary MARK E [place] Insurance:MEDICAIDPol HORNERDOB: [facility] ic Number: [id number] Hospital [id number] Repository Date:2017-12-20 12/20/2017 Tertiary NOT GIVENUNK [place] Insurance:SELF PAY [facility] Number: Effective Repository Date:2017-12-20 12/20/2017 MARK E Primary MARK E G[place] [id number] Insurance:MEDICARE HORNERDOB: [facility], PART A [facility] [id number] Hospital [place] [address]Vks: Number: Repository [id number] (HP) Date:2017-12-20 12/20/2017 Secondary MARK E G[place] Insurance:MEDICAIDPol HORNERDOB: [facility] icy Number: [id number] Hospital [id number] Repository Date:2017-12-20 12/20/2017 Tertiary NOT GIVENUNK Joseph Insurance:SELF PAY [facility] Effective Rep[facility] Date:2017-12-20 12/10/2017 MARK E Primary MARK E G[place] [id number] E Insurance:MEDICARE HORNERDOB: [facility] PART A [facility] [id number] [place] [address]Azk: Number: Repository [id number] () Date:2017-12-10 12/10/2017 Secondary MARK E [place] Insurance:MEDICAIDPol HORNERDOB: [facility] ic Number: [id number] Hospital [id number] Repository Date:2017-12-10 12/10/2017 Tertiary NOT GIVENUNK Joseph Insurance:SELF PAY [facility] Number: Effective Repository Date:2017-12-10 11/25/2017 MARK E Primary MARK E Joseph [id number] Insurance:MEDICARE HORNERDOB: [facility] PART A [facility] [id number], Number: Repository [place] [address]Wze: [id number] Date:2017-09-28 () 11/25/2017 Secondary MARK E [place] Insurance:MEDICAIDPol [facility] Number: [id number] Hospital [id number] Repository Date:2017-09-28 11/25/2017 Tertiary NOT GIVENUNK Joseph Insurance:SELF PAY [facility] Number: Effective Repository Date:2017-09-28 11/25/2017 Mark E Primary Mark E Joseph [id number] Insurance:MEDICAIDPol HornerDOB: [facility] Number: [id number], [id number] Repository [place] [address]Ayr: Date:2017-11-25 () 11/25/2017 Secondary Mark E Joseph Insurance:MEDICARE HornerDOB: [facility] PART A [facility] [id number] Hospital Number: Repository [id number] Date:2017-11-25 11/25/2017 Tertiary NOT GIVENUNK [place] Insurance:SELF PAY [facility] Number: Effective Repository Date:2017-11-25 11/25/2017 Mark E Primary Mark E Joseph [id number] Insurance:MEDICAIDPol HornerDOB: [facility] Number: [id number] General Hospital, [id number] Repository [place] [address]Xfk: Date:2017-11-25 () 11/25/2017 Secondary Mark E Grafton Insurance:MEDICARE HornerDOB: Community PART A [facility] [id number] Hospital Number: Repository [id number] Date:2017-11-25 11/25/2017 Tertiary NOT GIVENUNK [place] Insurance:SELF PAY [facility] Number: Effective Repository Date:2017-11-25
== END ==
PROVIDERS: Family Provider Family Medicine Geriatric Medicine; PCP Family Medicine Geriatric Medicine; Referring Provider Nurse Practitioner Acute Care; Visit Provider Nurse Practitioner Acute Care
DX: J44.9 Chronic obstructive pulmonary disease, unspecified (principal)
CPT/HCPCS: 94618

== ENCOUNTER 2018-10-25 20:10 | Inpatient (IN) | payer MEDICARE, MEDICAID, SELFPAY ==
[2018-09-28 09:30] VITALS: BMI 15.5
[2018-10-25] VITALS (11 sets, daily range): BP systolic 111–196; BP diastolic 80–125; PULSE 113–150; RESP 12–33; TEMP 36.3–37.2; O2SAT 85–100; BMI 16.0
--- NOTE | 2018-10-25 20:13 | ED.RN ---
RN CALLED FOR EKG, PULLED OLD EKGS FOR
--- NOTE | 2018-10-25 20:17 | EKG12_ITS ---
Test Reason : Blood Pressure : / mmHG Vent. Rate : 139 BPM Atrial Rate : 139 BPM P-R Int : 148 ms QRS Dur : 076 ms QT Int : 276 ms P-R-T Axes : 084 -76 066 degrees QTc Int : 419 ms Sinus tachycardia with Premature atrial complexes Right atrial enlargement Left axis deviation Low voltage QRS (LIMB LEADS) Abnormal ECG Confirmed by STEVE ABRAHAM, ADAMARIS ([id number]), script editor CRISTO SANTOS ([id number]) on 10/27/2018 1:59:58 PM Referred By: ACACIA Confirmed By:ADAMARIS WILSON MD
--- NOTE | 2018-10-25 20:17 | RAD_ITS ---
STUDY: X-RAY CHEST REASON FOR EXAM: Male, 68 years old. Shortness of breath TECHNIQUE: A single frontal view of the chest was obtained. COMPARISON: December 20, 2017 FINDINGS: Lines and tubes: None. Lungs: Hyperinflated. Coarse interstitial markings are again seen in the mid and upper lungs. No focal airspace opacities. Pleura: No demonstrated abnormality. Mediastinum/alo: Unremarkable. Cardiovascular: Normal size cardiac silhouette. Central vascularity unremarkable. Atherosclerotic calcifications in the thoracic aorta. Soft tissues: Unremarkable. Bones: Unremarkable. Upper abdomen: No demonstrated abnormality. RAD/Chest 1 View (Portable) IMPRESSION: No acute cardiopulmonary abnormalities. Stable COPD with mild fibrosis. Electronically Signed: Taryn Cummins MD at 21:59 EST Tel Direct: [phone], Service support ,
--- NOTE | 2018-10-25 20:22 | ED.VISSUMM ---
- ER Visit Summary Date of Service: 10/25/18 Chief Complaint: Shortness of breath, cough History of Present Illness: The patient is a 68 M presenting with shortness of breath, cough. Patient states this has been ongoing over the past 1.5 weeks. He has had a cough which has been persistent. He has chest pain with cough. He had constant chest pain for the past couple of days. He denies fever. He has a history of COPD. He normally wears 3 L home O2. Physical Examination: Blood pressure 196/125, respiratory rate 23, pulse ox 85% on 6 L, 100% on nonrebreather mask. Patient is afebrile. Alert cachectic. HEENT exam is unremarkable. Neck is supple. Lungs are wheezing and diminished bilaterally. Heart is regular and tachycardic. Abdomen is soft nontender nondistended. Extremities are unremarkable. Skin is warm and dry. No focal neurologic deficit. Remainder of exam is unremarkable. Emergency Department Course and Treatment: Patient was started on noninvasive ventilation. He was given albuterol, Atrovent aerosols. EKG is sinus tachycardia rate of 139. Chest x-ray shows no acute process. CBC, chemistries unremarkable other than creatinine 1.59. Troponin is negative. Lactic acid is normal. ABG shows pH of 7.37, PCO2 58, PO2 of 70. Patient was given Solu-Medrol IV. Repeat heart rate is 118. He is resting comfortably and improved on noninvasive ventilation. Will discuss with hospitalist for admission. Disposition: Admission Impression: COPD exacerbation, hypoxia This note was generated with [employer] dictation software. It may contain incorrect words, spelling, and punctuation that were not noted in review of the chart prior to signing ED Disposition - Plan for ED Patient: Chief Complaint: Shortness of Breath Referrals: Jalen Rodríguez Chi, MD [Primary Care Provider] -
[2018-10-25 20:46] LABS: Base Excess 8 mmol/L (-2 to +2); Bicarbonate 33.5 mmol/L (22-26); Blood Gas Specimen Type ART; EPAP 6; FI02 30; IPAP 12; PO2 70 mmHG (75-100); RR 12; SITE R Radial; SO2 93 % (95-99); Time Given 2037; Total Carbon Dioxide 35 mmol/L; pCO2 58.6 mmHg (35-45); pH 7.37 (7.35-7.45)
[2018-10-25 20:50] LABS: Absolute Lymphocyte Count 0.78 X10^3/ul (0.83-4.51); Absolute Neutrophil Count 5.4 X10^3/uL (2.0-7.7); Basophil# 0.03 X10^3/uL; Basophil% 0.4 % (0-1); Eosinophil# 0.06 X10^3/uL; Eosinophils% 0.9 % (0-5); Hematocrit 44.8 % (40-54); Hemoglobin 14.3 g/dl (13.0-16.5); Lymphocyte # 0.78 X10^3/ul (4.0); Lymphocyte % 11.2 % (19-41); Mean Corp Hgb Conc 31.9 g/gl (32-36); Mean Corpuscular Hgb 29.4 pg (27.0-32.0); Mean Corpuscular Volume 92.2 fL (80-94); Mean Platelet Vol. 10.7 fl (6.2-12.0); Monocyte% 10.1 % (0-10); Neutrophil # 5.36 X10^3/uL (2.7-7.7); POSITIVE COUNT NO; POSITIVE DIFFERENTIAL NO; POSITIVE MORPHOLOGY NO; Platelet Count 194 K/mm3 (150-450); RBC Distribution Width SD 45.3 fl (35.1-43.9); Red Blood Count 4.86 M/mm3 (4.6-6.2)
[2018-10-25] MEDS: Ipratropium/Albuterol Sulfate 3 ML AMPUL.NEB INHALATION (20:56)
[2018-10-25] MEDS: Albuterol 2.5 MG/3 ML VIAL.NEB. INHALATION ×2 (20:57)
[2018-10-25 21:04] LABS: Lactic Acid 1.7 mmol/L (0.4-2.0)
[2018-10-25 21:04] LABS: Anion Gap 8 (5-15); BUN 18 mg/dL (7-18); BUN/Creat Ratio 11.3 RATIO (10-20); Calcium,Total 9.8 mg/dL (8.5-10.1); Chloride 101 mmol/L (98-107); Creatinine, Serum 1.59 mg/dL (0.70-1.30); EST Glomerular Filtration Rate 46 mL/min (>60); Est Glom Filt Rate - Afr Amer 56 mL/min (>60); Estimated Creatinine Clearance 27.51 ml/min; Glucose 130 mg/dL (74-106); Potassium 4.8 mmol/L (3.5-5.1); Sodium Level 142 mmol/L (136-145)
[2018-10-25] MEDS: MethylPREDNISolone 125 MG/2 ML Vial IV (22:55)
--- NOTE | 2018-10-25 23:09 | HP.PCM_ITS ---
Problem List (1) Stage 4 very severe COPD by GOLD classification Status: Chronic (2) COPD with acute exacerbation Status: Acute (3) CKD (chronic kidney disease) stage 4, GFR 15-29 ml/min Status: Chronic Comment: Following with Dr. Chapman History of Present Illness Date of Admission: 10/25/18 Chief Complaint: shortness of breath. History was predominant taken from emergency department doctor and patient's nephew because patient was on BiPAP on the time of history taking. The patient is a 68 year old M with a significant history of COPD; former smoker; non-ST elevation [place]; bowel resection and hypertension who presented with 1 week history of progressively worsening shortness of breath. Associated with his symptoms is productive cough of greenish sputum. While at home he was wheezing. At home he uses oxygen at 3 L. At emergency department his oxygen saturation was 6 L was 85%. Patient was having tachycardia with heart rate as high as 150; and tachypnea with respiratory rate as high as 24. Because of increased work of breathing with retractions patient was placed on BiPAP at the ED. On BiPAP patient respiratory rate decreased to 110. At emergency department patient received steroids and breathing treatment. 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 Nicotine abuse (Chronic) Hypertension (Chronic) COLD (chronic obstructive lung disease) (Chronic) CKD (chronic kidney disease) stage 4, GFR 15-29 ml/min (Chronic) Following with Dr. 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 Nicotine abuse (Chronic) Z72.0 Hypertension (Chronic) I10 COLD (chronic obstructive lung disease) (Chronic) J44.9 CKD (chronic kidney disease) stage 4, GFR 15-29 ml/min (Chronic) N18.[address] Chapman Arthritis M19.90 Crohns disease K50.90 Non-ST elevation (NSTEMI) myocardial infarction Onset Date: 01/09/15 I21.4 Small bowel obstruction K56.609 Allergies Penicillins Adverse Reaction (Verified 10/25/18 20:16) Other Home Medications: Ambulatory Orders Medication Instructions Recorded Loperamide [Imodium] 2 mg PO DAILY 01/17/15 Mesalamine [Pentasa] 500 mg PO DAILY 12/20/17 albuterol sulfate 2.5 mg/3 mL 2.5 mg INHALATION Q4H PRN PRN #180 06/23/18 (0.083 %) solution for nebulization vial albuterol sulfate HFA 90 2 puff INHALATION Q4H PRN g 06/23/18 mcg/actuation aerosol inhaler Guaifenesin [Mucinex] 600 mg PO BID 10/25/18 Atorvastatin Calcium [Lipitor] 20 mg PO QDAY 10/26/18 Budesonide/Formoterol 160/4.5 1 puff INHALATION DAILY 10/26/18 [Symbicort 160/4.5 Mcg Inhaler (SP)] Lisinopril [Prinivil] 5 mg PO QDAY 10/26/18 Tiotropium [place] [Spiriva 18 MCG] 1 cap INHALATION DAILY 10/26/18 Surgical History: Surgical History (Last Reviewed 09/28/18 @ 09:22 by May Dhillon) History of left heart catheterization Onset Date: 01/09/15 Z98.890 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 Surgical History: - - left carpal tunnel, L ureteral stent for obstructed stone and removal 07/2013, partial bowel resection Lives: With Family Smoking Status: Former smoker - He reports quitting smoking about a month ago. - *Family History Paternal Family History: Family History (Last Reviewed 10/26/18 @ 09:24 by Dakota Gonzales MD) Father neg FH of ASCVD History Items: - - Denies family history of coronary artery disease Sibling Family History: Family History (Last Reviewed 10/26/18 @ 09:24 by Dakota Gonzales MD) Father neg FH of ASCVD History Items: Cancer - colon, COPD Review of Systems Unable to obtain accurate/complete ROS d/t: Patient on BiPAP. VTE Information - Inpt Only VTE Present on Admission: No VTE Mechan Device Prophylaxis: None VTE Pharm Prophylaxis ordered?: Yes - Physical Exam General: Alert, Oriented x3, Cooperative HEENT: Atraumatic, PERRLA, EOMI, Normocephalic Neck: Supple, No JVD, Negative Carotid Bruits Lungs: Diminished - Severely diminished, Tachypneic, Using Accessory Muscles Cardiovascular: No murmurs, Tachycardic Abdomen: Bowel Sounds Present, Soft, Non Tender Extremities: No edema, Capillary Refill Less than 3 Seconds Skin: No rashes, No breakdown Musculoskeletal: No Tenderness to Palpation of Joints or Extremities Neurological: Neuro grossly intact Psych/Mental Status: Normal Affect, Appropriate Vital Signs Temp Pulse Resp BP Pulse Ox 98.0 F 118 H 16 126/85 H 98 10/25/18 22:35 10/25/18 22:35 10/25/18 22:35 10/25/18 22:35 10/25/18 22:35 Oxygen Flow Rate (L/min) 15 Oxygen Delivery Method Bi-pap Weight: 44.996 kg Body Mass Index (BMI) 16.0 Laboratory Tests Past 24 Hrs 10/25/18 10/25/18 10/25/18 20:15 20:15 20:23 WBC 7.0 RBC 4.86 Hgb 14.3 Hct 44.8 MCV 92.2 MCH 29.4 MCHC 31.9 L RDW 14.0 RDW Differential 45.3 H Plt Count 194 MPV 10.7 Immature Gran % (Auto) 0.400 Neut % (Auto) 77.0 H Lymph % (Auto) 11.2 L [place] % (Auto) 10.1 H Eos % (Auto) 0.9 Baso % (Auto) 0.4 Absolute Neuts (auto) 5.4 Absolute Lymphs (auto) 0.78 L Total Counted Not Reportable Specimen Type Sample Site pH Bicarbonate Actual POC Total CO2 Base Excess O2 Saturation O2 % ABG pCO2 ABG pO2 Respiration Rate O2 Delivery Device EPAP IPAP Blood Gas Notified Whom Blood Gas Notified Time Sodium 142 Potassium 4.8 Chloride 101 Carbon Dioxide 33.0 H Anion Gap 8 BUN 18 Creatinine 1.59 H Estim Creat Clear Calc 27.51 Est GFR (MDRD) Af Amer 56 L Est GFR (MDRD) Non-Af 46 L BUN/Creatinine Ratio 11.3 Glucose 130 H Lactic Acid 1.7 Calcium 9.8 Troponin I < 0.015 10/25/18 20:42 WBC RBC Hgb Hct MCV MCH MCHC RDW RDW Differential Plt Count MPV Immature Gran % (Auto) Neut % (Auto) Lymph % (Auto) [place] % (Auto) Eos % (Auto) Baso % (Auto) Absolute Neuts (auto) Absolute Lymphs (auto) Total Counted Specimen Type ART Sample Site R Radial pH 7.37 Bicarbonate Actual 33.5 H POC Total CO2 35 Base Excess 8 H O2 Saturation 93 L O2 % 30 ABG pCO2 58.6 H ABG pO2 70 L Respiration Rate 12 O2 Delivery Device Bi / C PAP EPAP 6 IPAP 12 Blood Gas Notified Whom ED Blood Gas Notified Time 2036 Sodium Potassium Chloride Carbon Dioxide Anion Gap BUN Creatinine Estim Creat Clear Calc Est GFR (MDRD) Af Amer Est GFR (MDRD) Non-Af BUN/Creatinine Ratio Glucose Lactic Acid Calcium Troponin I Assessment/Plan All Active Problems (Last Reviewed 09/28/18 @ 09:22 by May Dhillon) COPD with acute exacerbation (Acute) The patient is a 68 year old M with a significant history of COPD; former smoker; non-ST elevation [place]; bowel resection; colon resection and hypertension who presented with 1 week history of progressively worsening shortness of breath; productive cough; wheezing was found to be severely hypoxic at emergency department and had increased work of breathing with tachycardia and tachypnea and was subsequently placed on a BiPAP consistent with acute exacerbation of COPD. Acute hypoxemic respiratory failure with hypoxemia and hypercapnia secondary to COPD with acute exacerbation ABG showed PCO2 of 58.6. PH was 7.32. PO2 was 70. Patient received Solu-Medrol the emergency department. Solu-Medrol continued. Scheduled DuoNeb. PRN albuterol. Mucinex ordered. Continue BiPAP. Transition to supplemental oxygen modalities when necessary. Keep oxygen saturation more than 90%. Comprehensive respiratory pathogen panel ordered. Breathing treatments continued. Azithromycin ordered. Hypertension urgency On admission his systolic blood pressure was severely elevated at 196; his diastolic blood pressure was 125. No evidence of end organ damage. Lisinopril continued Because of COPD with acute exacerbation we will start labetalol as needed. Because of tachycardia we will not start hydralazine. Catapres as needed ordered. Trend blood pressures and adjust blood pressure medication. CKD stage III Review of old records show that his CKD is stable. 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 Chapman designer architect. Continue outpatient follow-up. Irritable bowel syndrome/Crohn's Disease: Loperamide and Pentasa continued. DVT prophylaxis Subcutaneous heparin. Code Visit Inpatient E&M: 44258 Init Hosp L3
[2018-10-26] VITALS (18 sets, daily range): BP systolic 108–141; BP diastolic 62–90; PULSE 81–113; RESP 16–27; TEMP 36.7–37; O2SAT 91–100; BMI 15.0; BMI 15.1
[2018-10-26] MEDS: Heparin Injection (Vial) 5,000 UNIT/ML VIAL 5000 UNIT SC ×3 (05:35→22:35)
[2018-10-26] MEDS: 0.9% NaCl Peripheral Flush Adult/Peds IV ×2 (05:37→15:05)
[2018-10-26] MEDS: Budesonide Respules 0.5 MG/2 ML AMPUL.NEB. INHALATION (07:04)
[2018-10-26] MEDS: Ipratropium/Albuterol Sulfate 3 ML AMPUL.NEB INHALATION ×4 (07:04→19:32)
[2018-10-26 08:41] LABS: Absolute Lymphocyte Count 0.13 X10^3/ul (0.83-4.51); Absolute Neutrophil Count 2.7 X10^3/uL (2.0-7.7); Hematocrit 38.3 % (40-54); Hemoglobin 12.1 g/dl (13.0-16.5); Lymphocyte # 0.13 X10^3/ul (4.0); Lymphocyte % 4.6 % (19-41); Mean Corp Hgb Conc 31.6 g/gl (32-36); Mean Corpuscular Hgb 29.4 pg (27.0-32.0); Mean Corpuscular Volume 93.2 fL (80-94); Mean Platelet Vol. 10.2 fl (6.2-12.0); Monocyte# 0.02 X10^3/uL; Monocyte% 0.7 % (0-10); Neutrophil # 2.69 X10^3/uL (2.7-7.7); Neutrophil % 94.7 % (47-70); Platelet Count 152 K/mm3 (150-450); RBC Distribution Width CV 12.7 % (11.6-14.6); RBC Distribution Width SD 42.4 fl (35.1-43.9); Red Blood Count 4.11 M/mm3 (4.6-6.2); White Blood Count 2.8 K/mm3 (4.4-11.0)
[2018-10-26 08:42] LABS: Differential Indicated SCAN CRITERIA MET; POSITIVE COUNT NO; POSITIVE DIFFERENTIAL YES; POSITIVE MORPHOLOGY NO
[2018-10-26 09:12] LABS: Anion Gap 7 (5-15); BUN 25 mg/dL (7-18); Calcium,Total 9.3 mg/dL (8.5-10.1); Chloride 101 mmol/L (98-107); Creatinine, Serum 1.67 mg/dL (0.70-1.30); EST Glomerular Filtration Rate 43 mL/min (>60); Est Glom Filt Rate - Afr Amer 53 mL/min (>60); Estimated Creatinine Clearance 23.99 ml/min; Glucose 156 mg/dL (74-106); Potassium 4.3 mmol/L (3.5-5.1); Sodium Level 141 mmol/L (136-145)
[2018-10-26] MEDS: Lisinopril 5 MG Tablet PO (09:51)
[2018-10-26] MEDS: guaiFENesin 1,200 MG Tablet 1200 MG PO (09:51)
--- NOTE | 2018-10-26 11:55 | CASEMGMT ---
Addendum entered by Doni Gay 10/26/18 16:35: Discussed CCN with pt and he declines wanting CCN referral at this time. Original Note: Addendum entered by Doni Gay 10/26/18 16:22: Per RN SAHRA, Dago[place], call placed to [facility] and she confirmed they do provide pt's oxygen and current orders are for O2 @ 2 L/M with activity. Original Note: NORMA BOCANEGRA ASSESSMENT To room to talk with patient for initial transition planning/care coordination assessment. NORMA BOCANEGRA introduced self and role at [facility]. Pt voices understanding and consents to assessment at this time. Pt resting in bed. A/O at this time and answers all questions appropriately. Care providers, pharmacy, and demographics verified/updated at this time. PCP: Marcos Specialists: Terrence Jimenez Preferred [facility]acy: [facility] Insurance: [facility] A [facility] B, Medicaid Prescription Benefit: [employer] Living Will/HPOA: does not have LW or HCPOA . Interested in more information but does not want to talk with SW at this time to complete paperwork. States he would like to talk to the person he would as his POA first. Provided information on advanced directives and given Social Service rac card with number to call if chooses in the future to utilize [facility] social work for advanced directive completion. Educated patient that, if patient so chooses, can come back to [facility] and meet with a SW as an outpatient to complete health care advanced directives. Patient expresses understanding. Living Arrangements: Lives in a 2-story home. Bathroom and bedroom are on 2nd floor. States he has to go slow on the stairs, taking a couple at a time. has thought about setting everything up on the 1st floor but that he has too much furniture and it would take too much work. has one nephew who lives with him and another nephew is also staying with him through the winter d/t he is homeless. States he is independent with all personal ADL's such as bathing and dressing. Pt states he makes his own meals and manages his own medications. Nephew assists with physician recruiter. Transportation: Pt states drives self and states no transportation concerns at this time. DME: has the following availabe but does not use: shower chair, BSC, and 2 canes. Has home oxygen that he thinks he gets through [employer]. When inquired how much oxygen he is on, he states, well I was usually using 3, but I turned it up to 4 yesterday b/c I wasn't getting enough. States he has a concentrator and portable tanks. Pt states no need for further DME at this time. HHC/SNF: Pt states he has never used HHC in the past and has never been to a SNF. Discussed HHC with pt and the services they provide. Pt stated, I don't want any of that. I want to go home and I don't need any help. Pt wishes to return home and states has no concerns with going home at time of discharge. Pt states does not smoke or drink ETOH. CM to follow for home oxygen needs and any further discharge planning/needs. Pt voices no further concerns/needs at this time. Advised pt to ask for CM if any further questions/concerns/needs arise. Voices understanding. Plan: Home Rubia MAGANA RN CM
[2018-10-26 13:41] LABS: Pathologist Review Reviewed
--- NOTE | 2018-10-26 14:41 | PN_ITS ---
Subjective: Patient resting comfortably in bed, NAD. Still some dyspnea, and dyspnea is present with conversation requiring brakes mid sentence. He contines to have a productive cough. No fever or chills. No LE edema. No CP. He does not smoke. He still c/o wheezing as well. He refused bipap overnight stating it hurts his face. He normally uses 2-3 lpm at home during the day and 5 lpm qhs. - Physical Exam General: Alert, Oriented x3, Cooperative, - - frail HEENT: Atraumatic, PERRLA, EOMI, Normocephalic Neck: Supple, No JVD, Negative Carotid Bruits Lungs: Diminished, Wheezes Cardiovascular: Regular rate, No murmurs Abdomen: Bowel Sounds Present, Soft, Non Tender Extremities: No edema, Capillary Refill Less than 3 Seconds Skin: No rashes, No breakdown Musculoskeletal: No Tenderness to Palpation of Joints or Extremities Neurological: Cranial nerves II-XII grossly intact Psych/Mental Status: Normal Affect, Appropriate, Alert and oriented to time, place, person, mood and affect Vital Signs Temp Pulse Resp BP Pulse Ox 98.4 F 99 20 H 126/87 H 95 10/26/18 09:47 10/26/18 11:19 10/26/18 11:19 10/26/18 09:47 10/26/18 09:47 Oxygen Flow Rate (L/min) 3 Oxygen Delivery Method Nasal Cannula Weight: 90 lb 13.287 oz Body Mass Index (BMI) 15.0 Intake and Output for Last 24 Hours 10/24/18 10/25/18 10/26/18 23:59 23:59 23:59 Intake Total 1025 / 1025 Balance 1025 / 1025 Microbiology Past 72 Hours 10/26/18 04:10 Respiratory Panel (PCR) - Final Mucosa - Nasopharyngeal Laboratory Tests Past 24 Hrs 10/25/18 10/25/18 10/25/18 20:15 20:15 20:23 WBC 7.0 RBC 4.86 Hgb 14.3 Hct 44.8 MCV 92.2 MCH 29.4 MCHC 31.9 L RDW 14.0 RDW Differential 45.3 H Plt Count 194 MPV 10.7 Immature Gran % (Auto) 0.400 Neut % (Auto) 77.0 H Lymph % (Auto) 11.2 L Weber % (Auto) 10.1 H Eos % (Auto) 0.9 Baso % (Auto) 0.4 Absolute Neuts (auto) 5.4 Absolute Lymphs (auto) 0.78 L Total Counted Not Reportable Diff Path Review Specimen Type Sample Site pH Bicarbonate Actual POC Total CO2 Base Excess O2 Saturation O2 % ABG pCO2 ABG pO2 Respiration Rate O2 Delivery Device EPAP IPAP Blood Gas Notified Whom Blood Gas Notified Time Sodium 142 Potassium 4.8 Chloride 101 Carbon Dioxide 33.0 H Anion Gap 8 BUN 18 Creatinine 1.59 H Estim Creat Clear Calc 27.51 Est GFR (MDRD) Af Amer 56 L Est GFR (MDRD) Non-Af 46 L BUN/Creatinine Ratio 11.3 Glucose 130 H Lactic Acid 1.7 Calcium 9.8 Troponin I < 0.015 10/25/18 10/26/18 10/26/18 20:42 08:20 08:20 WBC 2.8 L RBC 4.11 L Hgb 12.1 L Hct 38.3 L MCV 93.2 MCH 29.4 MCHC 31.6 L RDW 12.7 RDW Differential 42.4 Plt Count 152 MPV 10.2 Immature Gran % (Auto) 0.000 Neut % (Auto) 94.7 H Lymph % (Auto) 4.6 L Weber % (Auto) 0.7 Eos % (Auto) 0.0 Baso % (Auto) 0.0 Absolute Neuts (auto) 2.7 Absolute Lymphs (auto) 0.13 L Total Counted Not Reportable Diff Path Review Reviewed Specimen Type ART Sample Site R Radial pH 7.37 Bicarbonate Actual 33.5 H POC Total CO2 35 Base Excess 8 H O2 Saturation 93 L O2 % 30 ABG pCO2 58.6 H ABG pO2 70 L Respiration Rate 12 O2 Delivery Device Bi / C PAP EPAP 6 IPAP 12 Blood Gas Notified Whom ED Blood Gas Notified Time 2036 Sodium 141 Potassium 4.3 Chloride 101 Carbon Dioxide 33.0 H Anion Gap 7 BUN 25 H Creatinine 1.67 H Estim Creat Clear Calc 23.99 Est GFR (MDRD) Af Amer 53 L Est GFR (MDRD) Non-Af 43 L BUN/Creatinine Ratio 15.0 Glucose 156 H Lactic Acid Calcium 9.3 Troponin I Medical Necessity - Tobacco Use Smoking Status: Former smoker - He reports quitting smoking about a month ago. Assessment/Plan All Active Problems (Last Reviewed 10/26/18 @ 09:22 by Dakota Gonzales MD) COPD with acute exacerbation (Acute) 1. Acute COPD exacerbation, hx stage IV COPD - continue steroids, duonebs, azithromycin. Resp panel negative. Lungs diminished and wheezying. Overall he is improved. Trop neg. No fever. Chest x-ray shows COPD with mild fibrosis. 2. Acute on chronic hypoxic resp failure - baseline is 2-3 during day, 5 at night. He was 85% on 6 L at presentation required BiPAP initially. He has been weaned down to 3 L/min which is what he uses at home. 3. CKD stage III-IV - increased BUN and Cr, add gentle hydration. He follows lissett Chapman. 4. Protein calorie malnutrition-dietitian consulted, Ensure added 4 times per day 5. Leukopenia-unclear why this decreased, possibly dictation side effect. Will recheck in the morning. 6. IBS - continue home meds. 7. HTN - stable DVT ppx: Heparin DC planning: improving, possibly home tomorrow. This patient was seen by Kenneth Sanchez PA-C under the supervision of Doctor Angelia bee
[2018-10-26] MEDS: 0.9% Normal Saline 1,000 ML 75 ML IV (15:29)
[2018-10-26] MEDS: Atorvastatin Calcium 20 MG Tablet PO (22:35)
[2018-10-26] MEDS: Ondansetron 4 MG/2 ML Vial IV (22:36)
[2018-10-27] VITALS (29 sets, daily range): BP systolic 97–195; BP diastolic 58–98; PULSE 73–125; RESP 18–26; TEMP 36.8–37.3; O2SAT 92–100
--- NOTE | 2018-10-27 00:11 | PCM.PN.BLA ---
Progress Note Responded to a rapid response: Patient with a history of IBS and COPD was admitted for COPD exacerbation, after receiving breathing treatment her nasal oxygen by cannula was of and he was throwing up. Patient looked flushed and anxious. He complained of abdominal pain. EKG was unremarkable. Upon assessment his heart sound is diminished; lung sounds diminished. Diagnoses include abdominal intolerance from antibiotic use; indigestion or viral gastritis. Patient reported that Zofran is no rectum. Because Zofran can prolong QT intervals with azithromycin will discontinue Zosyn at this time. Phenergan IV ordered. As needed Ativan for anxiety.
[2018-10-27] MEDS: LORazepam 2 MG/ML Syringe 1 MG IV (00:23)
[2018-10-27] MEDS: proMETHazine 25 MG/ML Syringe 6.25 MG IV ×2 (00:23→05:09)
--- NOTE | 2018-10-27 00:23 | EKG12_ITS ---
Test Reason : SOB Blood Pressure : / mmHG Vent. Rate : 088 BPM Atrial Rate : 088 BPM P-R Int : 152 ms QRS Dur : 080 ms QT Int : 346 ms P-R-T Axes : 085 -64 070 degrees QTc Int : 418 ms Normal sinus rhythm with sinus arrhythmia Right atrial enlargement Possible Pulmonary disease pattern Left anterior fascicular block Abnormal ECG Confirmed by STEVE ABRAHAM, ADAMARIS ([id number]), editor book CRISTO SANTOS ([id number]) on 10/28/2018 2:42:32 PM Referred By: DR COUGHLIN Confirmed By:ADAMARIS WILSON MD
[2018-10-27] MEDS: 0.9% NaCl Peripheral Flush Adult/Peds IV ×2 (00:25→05:09)
[2018-10-27] MEDS: 0.9% Normal Saline 1,000 ML 75 ML IV ×2 (04:51→10:11)
[2018-10-27] MEDS: Heparin Injection (Vial) 5,000 UNIT/ML VIAL 5000 UNIT SC (05:09)
--- NOTE | 2018-10-27 05:37 | CT_ITS ---
STUDY: CT ABDOMEN AND PELVIS WITHOUT CONTRAST REASON FOR EXAM: Male, 68 years old. Abdominal pain RADIATION DOSAGE (If Supplied By Facility): CTDIvol = ( 6.04 ) mGy, DLP = ( 276.33 ) mGycm TECHNIQUE: Transaxial images were obtained from the dome of the diaphragm to the symphysis pubis without oral contrast, and without intravenous contrast. Sagittal and coronal images were reconstructed. Individualized dose optimization techniques were used for this CT. COMPARISON: None. FINDINGS: There are platelike atelectatic changes in the right lung base. The liver is normal. No dilated intrahepatic biliary radicles. The gallbladder is normal with no calcifications within it. There is no pericholecystic fluid collection or streakiness The spleen is normal. The pancreas is normal. Both adrenals are normal. There is a 5 mm right calyceal calculus and a right sided hydronephrosis. There is a focal millimeter left-sided calyceal calculus but no left-sided hydronephrosis The stomach and duodenum are fluid filled and markedly distended. The point of obstruction may be anterior to the aorta. An SMA syndrome is suspected but difficult to ascertain because of lack of contrast.. The abdominal wall is intact with no hernias. There is no ascites or any free intraperitoneal air. No indication of epiploic appendagitis The vascular structures in the retroperitoneum are normal. There is no retrocrural, retroperitoneal or mesenteric adenopathy. The bones and joints are normal. The urinary bladder is normal.--The prostate is slightly enlarged.. There is no inguinal or pelvic adenopathy. There is no inguinal hernia. . CT/Abdomen/Pelvis without Cont IMPRESSION: Fluid filled markedly distended stomach and duodenum with the point of obstruction somewhere anterior to the aorta. 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 Bilateral calyceal calculi. A right-sided hydronephrosis without any demonstrable obstructing calculus right ureter Plate atelectatic changes in the right lung base Electronically Signed: Chuck Lyons MD at 6:29 EST Tel , Service support ,
[2018-10-27] MEDS: hydrALAZINE 20 MG/ML Vial 10 MG IV (06:57)
[2018-10-27] MEDS: proCHLORPERazine 10 MG/2 ML Vial 2.5 MG IV (06:58)
--- NOTE | 2018-10-27 06:58 | PCM.PN.BLA ---
Progress Note Notified by nursing staff that patient is having coffee-ground emesis. Alerted by nursing staff that CT scan of patient's abdomen is back and it is abnormal. Order to place NG tube and to connect to low wall intermittent suction. Patient to be kept n.p.o. Occult test for blood in gastric specimen ordered. Stat H&H ordered. Since patient will be npo will escalate IV prn blood pressure meds. Will add Compazine to Phenergan. Review of CT scan of abdomen shows suspected SMA syndrome. Discussed with Dr. Brumfield who suggested that patient may need to be transferred out. Dr. Brumfield agrees to NG tube. Discussed with Dr. Valdez. Dr. Valdez will have further conversation with General Surgery and patient/patient's family on goals of care.
[2018-10-27 07:20] LABS: Absolute Lymphocyte Count 0.31 X10^3/ul (0.83-4.51); Absolute Neutrophil Count 6.2 X10^3/uL (2.0-7.7); Basophil# 0.01 X10^3/uL; Basophil% 0.1 % (0-1); Hemoglobin 12.6 g/dl (13.0-16.5); Lymphocyte # 0.31 X10^3/ul (4.0); Lymphocyte % 4.5 % (19-41); Mean Corp Hgb Conc 31.5 g/gl (32-36); Mean Corpuscular Hgb 29.2 pg (27.0-32.0); Mean Corpuscular Volume 92.6 fL (80-94); Mean Platelet Vol. 10.3 fl (6.2-12.0); Monocyte# 0.34 X10^3/uL; Neutrophil # 6.19 X10^3/uL (2.7-7.7); Neutrophil % 90.3 % (47-70); Platelet Count 177 K/mm3 (150-450); RBC Distribution Width CV 12.8 % (11.6-14.6); RBC Distribution Width SD 42.2 fl (35.1-43.9); Red Blood Count 4.32 M/mm3 (4.6-6.2); White Blood Count 6.9 K/mm3 (4.4-11.0)
[2018-10-27 07:25] LABS: Differential Indicated SCAN CRITERIA MET; POSITIVE COUNT NO; POSITIVE DIFFERENTIAL YES; POSITIVE MORPHOLOGY NO
[2018-10-27 07:26] LABS: Anion Gap 8 (5-15); BUN 44 mg/dL (7-18); BUN/Creat Ratio 20.4 RATIO (10-20); Calcium,Total 9.5 mg/dL (8.5-10.1); Chloride 98 mmol/L (98-107); Creatinine, Serum 2.16 mg/dL (0.70-1.30); EST Glomerular Filtration Rate 32 mL/min (>60); Est Glom Filt Rate - Afr Amer 39 mL/min (>60); Estimated Creatinine Clearance 18.54 ml/min; Glucose 164 mg/dL (74-106); Potassium 4.1 mmol/L (3.5-5.1); Sodium Level 142 mmol/L (136-145)
--- NOTE | 2018-10-27 07:51 | RAD_ITS ---
STUDY: X-RAY - ABDOMEN/PELVIS REASON FOR EXAM: Male, 68 years old. NG tube placement TECHNIQUE: Frontal view COMPARISON: None. FINDINGS: Lungs are expanded. There are NO infiltrates. There is an unremarkable bowel gas pattern. There is no demonstrated free abdominal air. The NG tube is coiled in the esophagus and should be repositioned. Normal soft tissue structures. Normal visualized osseous structures. RAD/Abdomen Single View (Portable) IMPRESSION: The NG tube is coiled in the esophagus and should be repositioned. Electronically Signed: Jason Rocha MD at 3:19 EST , Service support ,
[2018-10-27 07:53] LABS: Differential Comment SCANNED
--- NOTE | 2018-10-27 07:56 | RAD_ITS ---
STUDY: X-RAY - ABDOMEN/PELVIS REASON FOR EXAM: Male, 68 years old. NG tube placement TECHNIQUE: Frontal view COMPARISON: None. FINDINGS: The NG tube is in the stomach. There is an unremarkable bowel gas pattern. There is no demonstrated free abdominal air. The visualized liver, spleen and kidneys are grossly normal in size and morphology. Normal soft tissue structures. Normal visualized osseous structures. RAD/Abdomen Single View IMPRESSION: The NG tube is in the stomach. Electronically Signed: Jason Rocha MD at 3:33 EST , Service support ,
--- NOTE | 2018-10-27 07:56 | RAD_ITS ---
STUDY: X-RAY CHEST REASON FOR EXAM: Male, 68 years old. SOB, dyspnea. TECHNIQUE: AP upright portable. COMPARISON: 10/25/2018. FINDINGS: Nasogastric tube is coiled in the distal esophagus. The lungs are clear and expanded. There is no demonstrated pleural abnormality. Normal size heart. Normal mediastinum and alo. Normal visualized pulmonary arteries. Normal visualized aortic arch and descending thoracic aorta. Normal visualized thoracic spine. Normal visualized ribs, clavicles, and shoulders. There is no demonstrated abnormality of the visualized soft tissue structures of the upper abdomen. RAD/Chest 1 View (Portable) IMPRESSION: Nasogastric tube is coiled in the distal esophagus. This should be retracted and repositioned. No acute cardiopulmonary disease. Electronically Signed: Shanna Aguillon MD at 0:01 EST Tel , Service support ,
--- NOTE | 2018-10-27 08:06 | CT_ITS ---
STUDY: CT ABDOMEN AND PELVIS WITH CONTRAST REASON FOR EXAM: Male, 68 years old. History of bowel obstruction. RADIATION DOSAGE (If Supplied By Facility): CTDIvol = ( 6.04 ) mGy, DLP = ( 285.40 ) mGycm TECHNIQUE: Transaxial images were obtained from the dome of the diaphragm to the symphysis pubis with oral contrast. 15 ml of Gastrografin contrast was administered. Sagittal and coronal images were reconstructed. Individualized dose optimization techniques were used for this CT. COMPARISON: Comparison is made with prior study dated October 27, 2018 at 5:55 AM. FINDINGS: A nasogastric tube is seen. The tip is in the distal portion of the stomach. Stable increased markings in the posterior medial segment of the right lower lobe. The visualized portions of the heart are within normal limits. Normal liver. The gallbladder is contracted. There are multiple benign calcified granulomata of the spleen. Normal pancreas. Normal bilateral adrenal glands. Stable small nonobstructive right intrarenal calculi. The largest measures 5 mm. Stable small left intrarenal calculi. There is gastric distention with evidence of retained food products and air. Normal small intestine. Normal colon. The appendix is visualized and appears normal. There is diffuse atherosclerotic calcification of the abdominal aorta, without a demonstrated aneurysm. Normal inferior vena cava. Normal retroperitoneum. Distended urinary bladder. Normal abdominal wall. Normal osseous structures. CT/Abdomen/Pel W ORAL Cont Only IMPRESSION: The tip of the nasogastric tube is in the distal portion of the stomach. There is residual distention of the stomach with retained food particles. There is no evidence of a small bowel obstruction at this time. Small bilateral renal calculi. Electronically Signed: Ned Denny MD at 12:43 EST Tel [phone], Service support ,
--- NOTE | 2018-10-27 08:32 | PN_ITS ---
Subjective: The pt is a 68 YO male with a PMH of CAD, Crohn's disease, multiple GI bleeds in the past, previous bowel resection, chronic respiratory failure with hypoxemia on 3 L of nasal O2 chronically, former smoking history, stage IV chronic renal failure and hypertension who presented to the emergency department at [facility] on 10/25/2018 complaining of increasing shortness of breath associated with a cough productive of green sputum over the preceding week. Pulse ox in the emergency room on 6 L was 85%. He was tachycardic, tachypneic and had accessory muscle use. He was placed on BiPAP in the emergency department and received steroids and aerosolized bronchodilators. CBC showed a white blood cell count of 7.0 with 77% neutrophils. Hemoglobin and platelets were within normal limits. An ABG done on BiPAP with a 30% FiO2 showed a pH of 7.37, PCO2 of 59 and a PO2 of 70. Serum bicarb was elevated at 33 and the BUN was 18 with a creatinine of 1.59. Lactic acid was 1.7. Troponin was less than 0.015. The chest x-ray showed marked flattening of the diaphragm with no infiltrates, pulmonary vascular congestion or pleural effusions. His last echocardiogram was in December 2014 showed a 60% ejection fraction with no regional wall motion abnormalities. His last visit with Dr. Jimenez was in May and he had no symptoms of angina or congestive heart failure. He was admitted to the hospital with a diagnosis of acute respiratory failure on chronic respiratory failure with hypoxemia and hypercapnia. He was treated for an acute exacerbation of COPD with aerosolized bronchodilators and high-dose intravenous steroids. A respiratory panel was negative. No sputum was obtained. No blood cultures were sent. Early in the morning on 10/27/2018 the patient began vomiting. The vomitus was coffee-ground in nature. CT scan of the patient's abdomen and pelvis was obtained and showed a fluid-filled markedly dilated stomach and duodenum with the point of obstruction somewhere anterior to the aorta. It was a noncontrasted study. SMA syndrome was suspected however he did not receive any IV contrast. There was right-sided nephrosis with no demonstrable obstructing calculus. An NG tube was placed and is draining dark red with some red blood in the NG tube. Hemoglobin in the a.m. on 10/27/2018 was 12.6 and BMP showed the CO2 to be up to 36. His creatinine has increased from 1.59 on 10/25/2018 to 2.16 today. He related to me that he had recently been in [facility] and had an NG at that time. He has lost 14 pounds in the past year and 9 pounds recently. He states that he is unable to eat because he throws up right away. He is somewhat confused at times and is not giving a good hx of the admission at [facility]. All events of the past 24 hours of been reviewed. He is afebrile. He is tachycardic with heart rates as high as 150. Blood pressure is currently 151/82. He is 96% saturated on a 3 L nasal cannula with a respiratory rate of 18. Chest x-ray today again shows hyperinflation with flattened diaphragms and no infiltrates. The heart is not enlarged. KUB initially showed the NG to be curled up in the distal esophagus but after advancing the NG tube it was noted to be in the body of the stomach. - Physical Exam General: Alert, Cooperative, Confused - intermittently, - - Vomiting dark brown/black vomitus while I was in the room. HEENT: Atraumatic Oral: Dry Mucosa Neck: Supple Lungs: Clear to auscultation, No rhonchi, No wheeze, No rales, Diminished Cardiovascular: Regular Rhythm, Normal S1, Normal S2, No murmurs, No Gallop, Tachycardic Abdomen: Non Tender, Hypoactive Bowel Sounds, Distended Extremities: No clubbing, No cyanosis, No edema, Peripheral Pulses Normal Skin: No rashes, No breakdown Neurological: Cranial nerves II-XII grossly intact, Neuro grossly intact Psych/Mental Status: Agitated Vital Signs Temp Pulse Resp BP Pulse Ox 98.6 F 122 H 18 151/82 H 96 10/27/18 08:12 10/27/18 08:12 10/27/18 08:12 10/27/18 08:12 10/27/18 08:12 Oxygen Flow Rate (L/min) 3 Oxygen Delivery Method Nasal Cannula Weight: 90 lb 13.287 oz Body Mass Index (BMI) 15.0 Intake and Output for Last 24 Hours 10/25/18 10/26/18 10/27/18 23:59 23:59 23:59 Intake Total 177 / 1777 1103 / 1103 Output Total 75 / 75 Balance 1777 / 1777 1028 / 1028 Microbiology Past 72 Hours 10/26/18 04:10 Respiratory Panel (PCR) - Final Mucosa - Nasopharyngeal Laboratory Tests Past 24 Hrs 10/26/18 10/26/18 10/27/18 08:20 08:20 06:50 WBC 2.8 L 6.9 RBC 4.11 L 4.32 L Hgb 12.1 L 12.6 L Hct 38.3 L 40.0 MCV 93.2 92.6 MCH 29.4 29.2 MCHC 31.6 L 31.5 L RDW 12.7 12.8 RDW Differential 42.4 42.2 Plt Count 152 177 MPV 10.2 10.3 Immature Gran % (Auto) 0.000 0.100 Neut % (Auto) 94.7 H 90.3 H Lymph % (Auto) 4.6 L 4.5 L Woodruff % (Auto) 0.7 5.0 Eos % (Auto) 0.0 0.0 Baso % (Auto) 0.0 0.1 Absolute Neuts (auto) 2.7 6.2 Absolute Lymphs (auto) 0.13 L 0.31 L Total Counted Not Reportable Not Reportable Differential Comment SCANNED Diff Path Review Reviewed Sodium 141 Potassium 4.3 Chloride 101 Carbon Dioxide 33.0 H Anion Gap 7 BUN 25 H Creatinine 1.67 H Estim Creat Clear Calc 23.99 Est GFR (MDRD) Af Amer 53 L Est GFR (MDRD) Non-Af 43 L BUN/Creatinine Ratio 15.0 Glucose 156 H Calcium 9.3 10/27/18 06:50 WBC RBC Hgb Hct MCV MCH MCHC RDW RDW Differential Plt Count MPV Immature Gran % (Auto) Neut % (Auto) Lymph % (Auto) Woodruff % (Auto) Eos % (Auto) Baso % (Auto) Absolute Neuts (auto) Absolute Lymphs (auto) Total Counted Differential Comment Diff Path Review Sodium 142 Potassium 4.1 Chloride 98 Carbon Dioxide 36.0 H Anion Gap 8 BUN 44 H Creatinine 2.16 H Estim Creat Clear Calc 18.54 Est GFR (MDRD) Af Amer 39 L Est GFR (MDRD) Non-Af 32 L BUN/Creatinine Ratio 20.4 H Glucose 164 H Calcium 9.5 Medical Necessity - Tobacco Use Smoking Status: Former smoker - He reports quitting smoking about a month ago. Assessment/Plan All Active Problems (Last Reviewed 10/26/18 @ 09:22 by Dakota Gonzales MD) COPD with acute exacerbation (Acute) Impressions 1. acute exacerbation COPD - improved 2. acute on chronic respiratory failure with hypoxemia and hypercarbia 3. Small bowel obstruction 4. Upper GI bleed 5. Chronic renal failure stage IV 6. Dehydration 7. Crohn's disease with history of bowel resection 8. Malnutrition 9. Hypertension 10. Coronary artery disease 11. Former smoking history-quit in 2015 12. NSTEMI in December 2014. Left heart catheterization demonstrated a possibly significant LAD stenosis however there was a small troponin release and he was discharged on medical therapy with aspirin and Plavix. Fluid bolus now Increase the maintenance IV Continue Protonix 40 mg IV every 12 hours...... consider Protonix infusion, will discuss with Dr. Sutton Consult Dr. Sutton to evaluate the patient Recheck lab in the a.m. Every 6 hours H&H Liver panel, magnesium and phosphorus now Type and screen for blood Decrease Solu-Medrol to every 12 hours since his breathing status has improved......the SBO may be related to Crohn's or to adhesions......await Dr. Kamara's consult. Steroids will also be beneficial if this is an exacerbation of Crohn's. I believe the tachycardia is related to dehydration at the present time so will hydrate and continue to monitor. Start a Catapres patch for BP control and HR control Code Visit Inpatient E&M: 46625 [facility] L[facility]
[2018-10-27 08:51] LABS: AST(SGOT) 10 U/L (15-37); Alanine Aminotransfer ALT/SGPT 22 U/L (16-61); Albumin, Serum 3.4 g/dL (3.2-5.0); Alkaline Phosphatase 85 U/L (45-117); Bilirubin, Direct 0.14 mg/dL (0.00-0.30); Globulin 3.7 g/dL (2.2-4.2); Magnesium 1.8 mg/dL (1.6-2.6); Phosphorus 4.1 mg/dL (2.5-4.9); Protein, Total 7.1 g/dL (6.4-8.2)
[2018-10-27] MEDS: Metoprolol Tartrate 5 MG/5 ML Vial IV (09:04)
[2018-10-27] MEDS: 0.9% Normal Saline 1,000 ML 999 ML IV (09:04)
[2018-10-27 09:09] LABS: Hemoglobin 12.2 g/dl (13.0-16.5)
[2018-10-27] MEDS: cloNIDine HCl 0.1 MG Patch TRANSDERM. (10:11)
--- NOTE | 2018-10-27 10:53 | PCM.CONS.R ---
Problem List (1) Acute kidney injury superimposed on chronic kidney disease Status: Chronic (2) Hydronephrosis Status: Acute Consultation - Renal PCP/ Referring MD: Requesting physician: [] Primary care physician: Jalen Rodríguez MD - History of Present Illness History of Present Illness: The patient is a 68 year old M past medical history of Crohn's disease COPD, non-ST [place], hypertension, chronic kidney disease stage III/IV, history of GI bleed and chronic respiratory failure. Patient presented with progressive shortness of breath with productive cough for a week. Patient was admitted initially with a 30 failure due to COPD exacerbation. Patient then had coffee-ground emesis. CT abdomen/pelvis showed distended duodenum/stomach and possible SMA syndrome . Also the CAT scan showed right-sided hydronephrosis which is a new without any obstructive stone. Renal team was consulted for acute kidney injury and chronic kidney disease. Creatinine increased to 2.1. Baseline creatinine seems around 1.8-2.0. Patient denies seen a laundry assistant in outpatient basis. Currently has NG tube. He is very slow to respond. No recent IV contrast exposure. No recent history of UTI. Review of systems: Unable to obtain review of systems because patient is not answering my questions appropriately - Allergies Allergies: Allergies Penicillins Adverse Reaction (Verified 10/25/18 20:16) Other - Current Medications Current Medications: Current Medications Acetaminophen (Tylenol) 650 mg PO Q6H PRN PRN PRN Reason: Mild Pain (scale 0-3)/T>100.7 Albuterol Sulfate (Ventolin Aerosols) 2.5 mg INHALATION Q2H PRN PRN PRN Reason: SHORTNESS OF BREATH Albuterol/Ipratropium (Duoneb) 3 ml INHALATION Q4H.RT [facility] Last Admin: 10/27/18 06:48 Dose: Not Given Atorvastatin Calcium (Lipitor) 20 mg PO QHS [facility] Last Admin: 10/26/18 22:35 Dose: 20 mg Clonidine (Catapres) 0.1 mg PO Q6H PRN PRN Reason: sbp > 160 Clonidine HCl (Catapres-Tts1) 0.1 mg TRANSDERM. Q7D [facility] Last Admin: 10/27/18 10:11 Dose: 0.1 mg Guaifenesin (Mucinex) 1,200 mg PO BID [facility] Last Admin: 10/27/18 08:05 Dose: Not Given Hydralazine HCl (Apresoline Iv) 10 mg IV Q6H PRN PRN PRN Reason: Systolic BP >160 Last Admin: 10/27/18 06:57 Dose: 10 mg Azithromycin 500 mg/ Dextrose 255 mls @ 250 mls/hr IV Q24 [facility] Stop: 10/28/18 11:02 Last Admin: 10/27/18 10:11 Dose: 250 mls/hr Sodium Chloride () 250 mls @ 15 mls/hr IV .[id number] PRN PRN Reason: SALINE FLUSH Sodium Chloride () 1,000 mls @ 75 mls/hr IV .[id number] [facility] Last Admin: 10/27/18 10:11 Dose: 75 mls/hr Pantoprazole Sodium 40 mg/ (Sodium Chloride) 110 mls @ 330 mls/hr IV Q12 [facility] Last Admin: 10/27/18 07:31 Dose: 330 mls/hr Labetalol HCl (Trandate) 10 mg IV Q4H PRN PRN PRN Reason: Systolic BP >160 Lisinopril (Zestril) 5 mg PO DAILY [facility] Last Admin: 10/27/18 08:05 Dose: Not Given Loperamide HCl (Imodium) 2 mg PO DAILY [facility] Last Admin: 10/27/18 08:05 Dose: Not Given Lorazepam (Ativan) 1 mg IV Q8 PRN PRN Reason: ANXIETY Last Admin: 10/27/18 00:23 Dose: 1 mg Magnesium Hydroxide (Milk Of Magnesia) 30 ml PO DAILY PRN PRN Reason: Constipation [facility] ([facility]) [facility] Last Admin: 10/27/18 08:05 Dose: Not Given Methylprednisolone (Solu-Medrol) 40 mg IV Q8 [facility] Last Admin: 10/27/18 05:09 Dose: 40 mg Nutritional Formula (Lactose Free) (Ensure Enlive) 120 ml PO 4X/DAY [facility] Last Admin: 10/27/18 08:05 Dose: Not Given Phenol/Menthol (Chloraseptic (Bkc)) 5 spray MM Q2H PRN PRN PRN Reason: For NG insertion Prochlorperazine Edisylate (Compazine Iv) 5 mg IV Q4H PRN PRN PRN Reason: NAUSEA/VOMITING Promethazine HCl (Phenergan) 6.25 mg IV Q4H PRN PRN PRN Reason: NAUSEA/VOMITING Last Admin: 10/27/18 05:09 Dose: 6.25 mg Sodium Chloride () 5 - 15 ml IV UD PRN PRN Reason: SALINE FLUSH Last Admin: 10/27/18 05:09 Dose: 10 ml - Past Medical History Past Medical History (Chronic Problems): Chronic Problems (Last Reviewed 10/26/18 @ 09:22 by Dakota Gonzales MD) Acute kidney injury superimposed on chronic kidney disease (Chronic) Stage 4 very severe COPD by GOLD classification (Chronic) Non-rheumatic tricuspid valve insufficiency (Chronic) mild 1+ regurg per echo 01/21/2015 done @ [facility] Atherosclerosis of coronary artery of [place] heart without angina pectoris (Chronic) 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 Nicotine abuse (Chronic) Hypertension (Chronic) COLD (chronic obstructive lung disease) (Chronic) CKD (chronic kidney disease) stage 4, GFR 15-29 ml/min (Chronic) Following with Dr. Chapman - Past Surgical History Surgical History: - - left carpal tunnel, L ureteral stent for obstructed stone and removal 07/2013, partial bowel resection - Social History Smoking Status: Former smoker - He reports quitting smoking about a month ago. - Family History Paternal Family History: Family History (Last Reviewed 10/26/18 @ 09:24 by Dakota Gonzales MD) Father neg FH of ASCVD History Items: - - Denies family history of coronary artery disease Sibling Family History: Family History (Last Reviewed 10/26/18 @ 09:24 by Dakota Gonzales MD) Father neg FH of ASCVD History Items: Cancer - colon, COPD Patient Problems: Active and Suspected Problems (Last Reviewed 10/26/18 @ 09:22 by Dakota Gonzales MD) Hydronephrosis (Acute) - Physical Exam General: Confused, Lethargic HEENT: Atraumatic Oral: Moist Mucosa Neck: Supple, No JVD Lungs: Clear to auscultation, Diminished Cardiovascular: Regular rate, Regular Rhythm Abdomen: Bowel Sounds Present, Soft, Non Tender Extremities: No clubbing, No cyanosis, No edema Skin: No rashes Lymphatic: No Cervical, Supraclavicular, or Inguinal Adenopathy Vital Signs Temp Pulse Resp BP Pulse Ox 98.6 F 112 H 18 151/82 H 96 10/27/18 08:12 10/27/18 09:04 10/27/18 08:12 10/27/18 08:12 10/27/18 08:12 Oxygen Flow Rate (L/min) 3 Oxygen Delivery Method Nasal Cannula Weight: 41.2 kg Body Mass Index (BMI) 15.0 Intake and Output for Last 24 Hours 10/25/18 10/26/18 10/27/18 23:59 23:59 23:59 Intake Total 1777 / 1777 1103 / 1103 Output Total 75 / 75 Balance 1777 / 1777 1028 / 1028 Microbiology Past 72 Hours 10/26/18 04:10 Respiratory Panel (PCR) - Final Mucosa - Nasopharyngeal Laboratory Tests Past 24 Hrs 10/26/18 10/27/18 10/27/18 08:20 06:50 06:50 WBC 6.9 RBC 4.32 L Hgb 12.6 L Hct 40.0 MCV 92.6 MCH 29.2 MCHC 31.5 L RDW 12.8 RDW Differential 42.2 Plt Count 177 MPV 10.3 Immature Gran % (Auto) 0.100 Neut % (Auto) 90.3 H Lymph % (Auto) 4.5 L [place] % (Auto) 5.0 Eos % (Auto) 0.0 Baso % (Auto) 0.1 Absolute Neuts (auto) 6.2 Absolute Lymphs (auto) 0.31 L Total Counted Not Reportable Differential Comment SCANNED Diff Path Review Reviewed Sodium 142 Potassium 4.1 Chloride 98 Carbon Dioxide 36.0 H Anion Gap 8 BUN 44 H Creatinine 2.16 H Estim Creat Clear Calc 18.54 Est GFR (MDRD) Af Amer 39 L Est GFR (MDRD) Non-Af 32 L BUN/Creatinine Ratio 20.4 H Glucose 164 H Hemoglobin A1c Calcium 9.5 Phosphorus Magnesium Total Bilirubin Direct Bilirubin AST ALT Alkaline Phosphatase Total Protein Albumin Globulin Blood Type Antibody Screen 10/27/18 10/27/18 10/27/18 06:50 06:50 08:55 WBC RBC Hgb 12.2 L Hct 39.0 L MCV MCH MCHC RDW RDW Differential Plt Count MPV Immature Gran % (Auto) Neut % (Auto) Lymph % (Auto) [place] % (Auto) Eos % (Auto) Baso % (Auto) Absolute Neuts (auto) Absolute Lymphs (auto) Total Counted Differential Comment Diff Path Review Sodium Potassium Chloride Carbon Dioxide Anion Gap BUN Creatinine Estim Creat Clear Calc Est GFR (MDRD) Af Amer Est GFR (MDRD) Non-Af BUN/Creatinine Ratio Glucose Hemoglobin A1c 6.0 Calcium Phosphorus 4.1 Magnesium 1.8 Total Bilirubin 0.40 Direct Bilirubin 0.14 AST 10 L ALT 22 Alkaline Phosphatase 85 Total Protein 7.1 Albumin 3.4 Globulin 3.7 Blood Type Antibody Screen 10/27/18 08:55 WBC RBC Hgb Hct MCV MCH MCHC RDW RDW Differential Plt Count MPV Immature Gran % (Auto) Neut % (Auto) Lymph % (Auto) [place] % (Auto) Eos % (Auto) Baso % (Auto) Absolute Neuts (auto) Absolute Lymphs (auto) Total Counted Differential Comment Diff Path Review Sodium Potassium Chloride Carbon Dioxide Anion Gap BUN Creatinine Estim Creat Clear Calc Est GFR (MDRD) Af Amer Est GFR (MDRD) Non-Af BUN/Creatinine Ratio Glucose Hemoglobin A1c Calcium Phosphorus Magnesium Total Bilirubin Direct Bilirubin AST ALT Alkaline Phosphatase Total Protein Albumin Globulin Blood Type A POSITIVE Antibody Screen NEGATIVE Assessment/Plan All Active Problems (Last Reviewed 10/26/18 @ 09:22 by Dakota Gonzales MD) Hydronephrosis (Acute) COPD with acute exacerbation (Acute) 1-acute kidney injury on chronic kidney disease. Baseline creatinine seems around 1.8-2 mg a deciliter. No recent UA available Acute kidney injury could be from blood pressure fluctuating in addition to poor oral intake. Renal ultrasound shows new onset right-sided hydro-nephrosis which also might be contributing to worsening kidney function Creatinine is 2.26 mg a deciliter I agree with IV fluid normal saline 75 cc/h We will do bladder scan. If bladder volume more than 300, will order to place a Syed catheter. Will do UA. No indication for hemodialysis. Okay to continue lisinopril. Avoid nephrotoxic's. 2-new onset right-sided hydronephrosis. CAT scan did not show any obstructive stone. Will do bladder scan and Place Syed catheter the patient retaining. We might need to repeat CAT scan if the kidney function continues to worsen. 3-hypertension: Blood pressure is well controlled now. Okay to clonidine, lisinopril 4-COPD exacerbation. On methylprednisone and respiratory treatment as per the primary servie 5-upper GI bleed with SMA syndrome. Will defer management to the primary service Thank you for the consult
--- NOTE | 2018-10-27 10:59 | CON.PCM_ITS ---
Problem List (1) Acute kidney injury superimposed on chronic kidney disease Status: Chronic (2) Hydronephrosis Status: Acute Consultation - Renal PCP/ Referring MD: Requesting physician: [] Primary care physician: Jalen Rodríguez MD - History of Present Illness History of Present Illness: The patient is a 68 year old M past medical history of Crohn's disease COPD, non-ST [place], hypertension, chronic kidney disease stage III/IV, history of GI bleed and chronic respiratory failure. Patient presented with progressive shortness of breath with productive cough for a week. Patient was admitted initially with a 30 failure due to COPD exacerbation. Patient then had coffee-ground emesis. CT abdomen/pelvis showed distended duodenum/stomach and possible SMA syndrome . Also the CAT scan showed right-sided hydronephrosis which is a new without any obstructive stone. Renal team was consulted for acute kidney injury and chronic kidney disease. Creatinine increased to 2.1. Baseline creatinine seems around 1.8-2.0. Patient denies seen a pyridine recovery operator in outpatient basis. Currently has NG tube. He is very slow to respond. No recent IV contrast exposure. No recent history of UTI. Review of systems: Unable to obtain review of systems because patient is not answering my questions appropriately - Allergies Allergies: Allergies Penicillins Adverse Reaction (Verified 10/25/18 20:16) Other - Current Medications Current Medications: Current Medications Acetaminophen (Tylenol) 650 mg PO Q6H PRN PRN PRN Reason: Mild Pain (scale 0-3)/T>100.7 Albuterol Sulfate (Ventolin Aerosols) 2.5 mg INHALATION Q2H PRN PRN PRN Reason: SHORTNESS OF BREATH Albuterol/Ipratropium (Duoneb) 3 ml INHALATION Q4H.RT [facility] Last Admin: 10/27/18 06:48 Dose: Not Given Atorvastatin Calcium (Lipitor) 20 mg PO QHS [facility] Last Admin: 10/26/18 22:35 Dose: 20 mg Clonidine (Catapres) 0.1 mg PO Q6H PRN PRN Reason: sbp > 160 Clonidine HCl (Catapres-Tts1) 0.1 mg TRANSDERM. Q7D [facility] Last Admin: 10/27/18 10:11 Dose: 0.1 mg Guaifenesin (Mucinex) 1,200 mg PO BID [facility] Last Admin: 10/27/18 08:05 Dose: Not Given Hydralazine HCl (Apresoline Iv) 10 mg IV Q6H PRN PRN PRN Reason: Systolic BP >160 Last Admin: 10/27/18 06:57 Dose: 10 mg Azithromycin 500 mg/ Dextrose 255 mls @ 250 mls/hr IV Q24 [facility] Stop: 10/28/18 11:02 Last Admin: 10/27/18 10:11 Dose: 250 mls/hr Sodium Chloride () 250 mls @ 15 mls/hr IV .[id number] PRN PRN Reason: SALINE FLUSH Sodium Chloride () 1,000 mls @ 75 mls/hr IV .[id number] [facility] Last Admin: 10/27/18 10:11 Dose: 75 mls/hr Pantoprazole Sodium 40 mg/ (Sodium Chloride) 110 mls @ 330 mls/hr IV Q12 [facility] Last Admin: 10/27/18 07:31 Dose: 330 mls/hr Labetalol HCl (Trandate) 10 mg IV Q4H PRN PRN PRN Reason: Systolic BP >160 Lisinopril (Zestril) 5 mg PO DAILY [facility] Last Admin: 10/27/18 08:05 Dose: Not Given Loperamide HCl (Imodium) 2 mg PO DAILY [facility] Last Admin: 10/27/18 08:05 Dose: Not Given Lorazepam (Ativan) 1 mg IV Q8 PRN PRN Reason: ANXIETY Last Admin: 10/27/18 00:23 Dose: 1 mg Magnesium Hydroxide (Milk Of Magnesia) 30 ml PO DAILY PRN PRN Reason: Constipation [facility] Last Admin: 10/27/18 08:05 Dose: Not Given Methylprednisolone (Solu-Medrol) 40 mg IV Q8 [facility] Last Admin: 10/27/18 05:09 Dose: 40 mg Nutritional Formula (Lactose Free) (Ensure Enlive) 120 ml PO 4X/DAY [facility] Last Admin: 10/27/18 08:05 Dose: Not Given Phenol/Menthol (Chloraseptic (Bkc)) 5 spray MM Q2H PRN PRN PRN Reason: For NG insertion Prochlorperazine Edisylate (Compazine Iv) 5 mg IV Q4H PRN PRN PRN Reason: NAUSEA/VOMITING Promethazine HCl (Phenergan) 6.25 mg IV Q4H PRN PRN PRN Reason: NAUSEA/VOMITING Last Admin: 10/27/18 05:09 Dose: 6.25 mg Sodium Chloride () 5 - 15 ml IV UD PRN PRN Reason: SALINE FLUSH Last Admin: 10/27/18 05:09 Dose: 10 ml - Past Medical History Past Medical History (Chronic Problems): Chronic Problems (Last Reviewed 10/26/18 @ 09:22 by Dakota Gonzales MD) Acute kidney injury superimposed on chronic kidney disease (Chronic) Stage 4 very severe COPD by GOLD classification (Chronic) Non-rheumatic tricuspid valve insufficiency (Chronic) mild 1+ regurg per echo 01/21/2015 done @ 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 Nicotine abuse (Chronic) Hypertension (Chronic) COLD (chronic obstructive lung disease) (Chronic) CKD (chronic kidney disease) stage 4, GFR 15-29 ml/min (Chronic) Following with Dr. Chapman - Past Surgical History Surgical History: - - left carpal tunnel, L ureteral stent for obstructed stone and removal 07/2013, partial bowel resection - Social History Smoking Status: Former smoker - He reports quitting smoking about a month ago. - Family History Paternal Family History: Family History (Last Reviewed 10/26/18 @ 09:24 by Dakota Gonzales MD) Father neg FH of ASCVD History Items: - - Denies family history of coronary artery disease Sibling Family History: Family History (Last Reviewed 10/26/18 @ 09:24 by Dakota Gonzales MD) Father neg FH of ASCVD History Items: Cancer - colon, COPD Patient Problems: Active and Suspected Problems (Last Reviewed 10/26/18 @ 09:22 by Dakota Gonzales MD) Hydronephrosis (Acute) - Physical Exam General: Confused, Lethargic HEENT: Atraumatic Oral: Moist Mucosa Neck: Supple, No JVD Lungs: Clear to auscultation, Diminished Cardiovascular: Regular rate, Regular Rhythm Abdomen: Bowel Sounds Present, Soft, Non Tender Extremities: No clubbing, No cyanosis, No edema Skin: No rashes Lymphatic: No Cervical, Supraclavicular, or Inguinal Adenopathy Vital Signs Temp Pulse Resp BP Pulse Ox 98.6 F 112 H 18 151/82 H 96 10/27/18 08:12 10/27/18 09:04 10/27/18 08:12 10/27/18 08:12 10/27/18 08:12 Oxygen Flow Rate (L/min) 3 Oxygen Delivery Method Nasal Cannula Weight: 41.2 kg Body Mass Index (BMI) 15.0 Intake and Output for Last 24 Hours 10/25/18 10/26/18 10/27/18 23:59 23:59 23:59 Intake Total 1777 / 1777 1103 / 1103 Output Total 75 / 75 Balance 1777 / 1777 1028 / 1028 Microbiology Past 72 Hours 10/26/18 04:10 Respiratory Panel (PCR) - Final Mucosa - Nasopharyngeal Laboratory Tests Past 24 Hrs 10/26/18 10/27/18 10/27/18 08:20 06:50 06:50 WBC 6.9 RBC 4.32 L Hgb 12.6 L Hct 40.0 MCV 92.6 MCH 29.2 MCHC 31.5 L RDW 12.8 RDW Differential 42.2 Plt Count 177 MPV 10.3 Immature Gran % (Auto) 0.100 Neut % (Auto) 90.3 H Lymph % (Auto) 4.5 L [place] % (Auto) 5.0 Eos % (Auto) 0.0 Baso % (Auto) 0.1 Absolute Neuts (auto) 6.2 Absolute Lymphs (auto) 0.31 L Total Counted Not Reportable Differential Comment SCANNED Diff Path Review Reviewed Sodium 142 Potassium 4.1 Chloride 98 Carbon Dioxide 36.0 H Anion Gap 8 BUN 44 H Creatinine 2.16 H Estim Creat Clear Calc 18.54 Est GFR (MDRD) Af Amer 39 L Est GFR (MDRD) Non-Af 32 L BUN/Creatinine Ratio 20.4 H Glucose 164 H Hemoglobin A1c Calcium 9.5 Phosphorus Magnesium Total Bilirubin Direct Bilirubin AST ALT Alkaline Phosphatase Total Protein Albumin Globulin Blood Type Antibody Screen 10/27/18 10/27/18 10/27/18 06:50 06:50 08:55 WBC RBC Hgb 12.2 L Hct 39.0 L MCV MCH MCHC RDW RDW Differential Plt Count MPV Immature Gran % (Auto) Neut % (Auto) Lymph % (Auto) [place] % (Auto) Eos % (Auto) Baso % (Auto) Absolute Neuts (auto) Absolute Lymphs (auto) Total Counted Differential Comment Diff Path Review Sodium Potassium Chloride Carbon Dioxide Anion Gap BUN Creatinine Estim Creat Clear Calc Est GFR (MDRD) Af Amer Est GFR (MDRD) Non-Af BUN/Creatinine Ratio Glucose Hemoglobin A1c 6.0 Calcium Phosphorus 4.1 Magnesium 1.8 Total Bilirubin 0.40 Direct Bilirubin 0.14 AST 10 L ALT 22 Alkaline Phosphatase 85 Total Protein 7.1 Albumin 3.4 Globulin 3.7 Blood Type Antibody Screen 10/27/18 08:55 WBC RBC Hgb Hct MCV MCH MCHC RDW RDW Differential Plt Count MPV Immature Gran % (Auto) Neut % (Auto) Lymph % (Auto) [place] % (Auto) Eos % (Auto) Baso % (Auto) Absolute Neuts (auto) Absolute Lymphs (auto) Total Counted Differential Comment Diff Path Review Sodium Potassium Chloride Carbon Dioxide Anion Gap BUN Creatinine Estim Creat Clear Calc Est GFR (MDRD) Af Amer Est GFR (MDRD) Non-Af BUN/Creatinine Ratio Glucose Hemoglobin A1c Calcium Phosphorus Magnesium Total Bilirubin Direct Bilirubin AST ALT Alkaline Phosphatase Total Protein Albumin Globulin Blood Type A POSITIVE Antibody Screen NEGATIVE Assessment/Plan All Active Problems (Last Reviewed 10/26/18 @ 09:22 by Dakota Gonzales MD) Hydronephrosis (Acute) COPD with acute exacerbation (Acute) 1-acute kidney injury on chronic kidney disease. Baseline creatinine seems around 1.8-2 mg a deciliter. No recent UA available Acute kidney injury could be from blood pressure fluctuating in addition to poor oral intake. Renal ultrasound shows new onset right-sided hydro-nephrosis which also might be contributing to worsening kidney function Creatinine is 2.26 mg a deciliter I agree with IV fluid normal saline 75 cc/h We will do bladder scan. If bladder volume more than 300, will order to place a Syed catheter. Will do UA. No indication for hemodialysis. Okay to continue lisinopril. Avoid nephrotoxic's. 2-new onset right-sided hydronephrosis. CAT scan did not show any obstructive stone. Will do bladder scan and Place Syed catheter the patient retaining. We might need to repeat CAT scan if the kidney function continues to worsen. 3-hypertension: Blood pressure is well controlled now. Okay to clonidine, lisinopril 4-COPD exacerbation. On methylprednisone and respiratory treatment as per the primary servie 5-upper GI bleed with SMA syndrome. Will defer management to the primary checo keenan Thank you for the consult
--- NOTE | 2018-10-27 11:57 | PCM.CONS.GEN ---
Reason for Consult Date of Consultation: 10/27/18 Reason for Consultation: nausea and vomiting with gastric distention History of Present Illness: The patient is a 68 year old M presents with COPD exacerbation with an additional issue of nausea and vomiting with significant gastric distention. Overall the patient is a poor historian. The patients recently noted worsening COPD. He was admitted to the hospital on October 25 tachycardic on BiPAP mask. With was felt to be an underlying COPD exacerbation of her plans for him to be discharged to home but the patient noted increased abdominal distention and vomited coffee grounds. hemoglobin at admission was 14.3. Hemoglobin this morning was 12.2. KUB demonstrated significant gastric distention. A CT scan of the abdomen pelvis without oral contrast was obtained and this demonstrated: IMPRESSION: Fluid filled markedly distended stomach and duodenum with the point of obstruction somewhere anterior to the aorta. 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 Bilateral calyceal calculi. A right-sided hydronephrosis without any demonstrable obstructing calculus right ureter Plate atelectatic changes in the right lung base The patient has similar issue of abdominal distention nausea and vomiting for which he was admitted to [facility] from 07/06/18 to 07/13/18. Discharge summary from [facility] revealed: Mr. Vila was admitted with intractable nausea/vomiting and weight loss. There was an initial concern for small bowel obstruction as such, he was made NPO and a NG tube was placed. He was followed by GI and general surgery service. He was eventually started on TPN due to poor PO intake. A barium swallow showed prominent dilatation of the duodenum, measuring up to approximately 6 cm. ?The ?jejunum and ileum appear decompressed with concern for SMA syndrome. Gastric emptying study was unremarkable, an EGD showed no obstruction, did show some esophagitis and trauma due to NG tube insertion. Biopsies were negative for H pylori but confirmed chronic gastritis. His symptoms did eventually resolve, he was advanced to regular diet and tolerated PO intake well. His TPN was discontinued and he was discharged home in stable medical condition to continue on PPI and followup with GI as outpatient. Upper GI report from [facility] on July 07, 2018 demonstrated the following findings: FINDINGS: Initial machine set up operator paper goods film demonstrates a nonspecific bowel gas pattern. ?An enteric tube extends into the mid stomach. ? No obvious esophageal abnormality is identified. ?No stricture or mass. ?No reflux. ? There is a normal appearance of the stomach without an obvious mass or persistent contrast collection. ?There is normal gastric evacuation of contrast into the proximal small bowel. ? The duodenum is dilated, measuring up to nearly 6 cm. ?The remainder of the small bowel is normal in caliber. ?Contrast makes its way to the colon approximately 3.5 ?hours after ingestion. ?There is no significant mucosal fold thickening. ?No obvious mass, stricture or extrinsic mass effect. ?Spot films of the terminal ileum demonstrate a normal appearance. ? IMPRESSION: Prominent dilatation of the duodenum, measuring up to approximately 6 cm. ?The jejunum and ileum appear decompressed. ?Correlate clinically to the possibility of ?SMA syndrome. EGD report demonstrated: ? DATE OF SURGERY/PROCEDURE: ?07/11/2018 ? INCISION/PROCEDURE START TIME: ?10:33. ? INCISION CLOSE/PROCEDURE END TIME: ?10:51. ? PREOPERATIVE DIAGNOSIS: ?See below ? POSTOPERATIVE DIAGNOSIS: ?See below ? SURGEON: ?Geovanny Adams MD ? CABLE WORKER HELPER: ?Mino Petersen. ? SURGERY/PROCEDURE: ?Esophagogastroduodenoscopy with biopsies. ? ANESTHESIA: ?Monitored Anesthesia Care ? LOG ID: ?[id number]. ? PREOPERATIVE DIAGNOSES: 1. Nausea and vomiting. 2. 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 ? POSTOPERATIVE DIAGNOSES: 1. No ?duodenal ?obstruction seen, tortuous descending duodenum, but no evidence ?of ?any obstruction. 2. Grade B esophagitis at GE junction. 3. NG tube trauma. ? CONSENT: ?Risks and benefits of the procedure were discussed with the patient and ?consent was obtained. ? ENDOSCOPE: ?Olympus adult gastroscope. ? MEDICATIONS: ?MAC sedation. ? DESCRIPTION OF THE PROCEDURE: ?The procedure was performed in the endoscopy suite. ?The patient was placed in left lateral decubitus position. ?The patient was monitored throughout. ?Once the patient was sedated, a bite block was placed. ?The ?endoscope was inserted in the esophagus, stomach, and duodenum. ?The esophagus and ?its upper, middle, and thirds were normal. ?However, on the GE junction, there were ?a lot of erosive changes consistent with some grade B esophagitis. ?There was a 2 ?centimeter hiatal hernia. ?Z-line appeared to be at 42 centimeters. ?The diaphragmatic hiatus was at 44 centimeters. ?The stomach exam did not have any ?debris or fluid within it. ?NG tube was removed. ?There were some NG tube trauma ?feilds in various areas of the stomach. ?Random gastric biopsies were obtained. ?The ?stomach was significantly J-shaped. ?The duodenum was examined well into or through ?the fourth portion of the duodenum. ?I did not see any obstructive process. ?I did ?not see any mass lesions. ?There was some tortuosity to the postbulbar descending ?part of the duodenum, but again, I did not find any stricturing or obstruction. ?There was no significant dilation of the duodenum neither. ?Scope was then withdrawn. ?The patient was transferred to recovery room in stable condition. Pathology from his upper endoscopy at [facility] on July 11, 2018 demonstrated mild gastritis was H. pylori negative. hemoglobin at discharge on that admission was 11. The patient is a complex medical history including advanced COPD with hyperinflation but a decreased FEV1, a previous nonST segment myocardial infarction still with apparently good cardiac function. He has a history of chronic renal insufficiency. The patient states she has a previous history of Crohn's disease for which she underwent an exploratory laparotomy with resection he says of 2 feet of distal bowel. He is uncertain where the surgical procedure was performed. He recalls it happened in [place]. Patient underwent upper endoscopy Dr. David Price on December 2014 when he was found to have maroon stools. Upper endoscopy at that time was unremarkable. prior to that he was scheduled for colonoscopy in 2012. He had undergone CT scan of the abdomen and pelvis which demonstrated: IMPRESSION: 1. Small wall inflammation seen with reactivation of Crohn's disease. 2. Anastomotic stenosis of the distal ileum with terminal ileitis. 3. No complete small bowel obstruction, however a partial or functional obstruction at the site of the anastomotic stenosis suspected. 4. Likely hepatic hemangiomata. 5. Reactive changes of the colon rather than colitis suspected. 6. Extensive arterial sclerosis. 7. Remote granulomatous disease. He then underwent small bowel follow-through on March 24, 2013 which demonstrated FINDINGS: The small bowel transit is normal. There is evidence of thickening of the terminal ileum with separation of bowel loops. There is deformity of the medial portion of the cecum. This is intimal with the active Crohn's disease with inflammatory process. IMPRESSION: Findings suggestive of active Crohn's disease involving the terminal ileum and surrounding cecum. Past Medical History Past Medical History (Chronic Problems): Chronic Problems (Last Reviewed 10/26/18 @ 09:22 by Dakota Gonzales MD) Acute kidney injury superimposed on chronic kidney disease (Chronic) Stage 4 very severe COPD by GOLD classification (Chronic) Non-rheumatic tricuspid valve insufficiency (Chronic) mild 1+ regurg per echo 01/21/2015 done @ [facility] Atherosclerosis of coronary artery of [place] heart without angina pectoris (Chronic) 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 Nicotine abuse (Chronic) Hypertension (Chronic) COLD (chronic obstructive lung disease) (Chronic) CKD (chronic kidney disease) stage 4, GFR 15-29 ml/min (Chronic) Following with Dr. Chapman Medical History: Medical History (Last Reviewed 10/26/18 @ 09:22 by Dakota Gonzales MD) Non-rheumatic tricuspid valve insufficiency (Chronic) I36.1 mild 1+ regurg per echo 01/21/2015 done @ [facility] Atherosclerosis of coronary artery of [place] heart without angina pectoris (Chronic) I25.10 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 Nicotine abuse (Chronic) Z72.0 Hypertension (Chronic) I10 COLD (chronic obstructive lung disease) (Chronic) J44.9 CKD (chronic kidney disease) stage 4, GFR 15-29 ml/min (Chronic) N18.[address] Chapman Arthritis M19.90 Crohns disease K50.90 Non-ST elevation (NSTEMI) myocardial infarction Onset Date: 01/09/15 I21.4 Small bowel obstruction K56.609 Allergies Penicillins Adverse Reaction (Verified 10/25/18 20:16) Other Home Medications: Ambulatory Orders Medication Instructions Recorded Loperamide [Imodium] 2 mg PO DAILY 01/17/15 Mesalamine [Pentasa] 500 mg PO DAILY 12/20/17 albuterol sulfate 2.5 mg/3 mL 2.5 mg INHALATION Q4H PRN PRN #180 06/23/18 (0.083 %) solution for nebulization vial albuterol sulfate HFA 90 2 puff INHALATION Q4H PRN g 06/23/18 mcg/actuation aerosol inhaler Guaifenesin [Mucinex] 600 mg PO BID 10/25/18 Atorvastatin Calcium [Lipitor] 20 mg PO QDAY 10/26/18 Budesonide/Formoterol 160/4.5 1 puff INHALATION DAILY 10/26/18 [Symbicort 160/4.5 Mcg Inhaler (SP)] Lisinopril [Prinivil] 5 mg PO QDAY 10/26/18 Tiotropium [place] [Spiriva 18 MCG] 1 cap INHALATION DAILY 10/26/18 Surgical History: Surgical History (Last Reviewed 09/28/18 @ 09:22 by May Dhillon) History of left heart catheterization Onset Date: 01/09/15 Z98.890 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 Surgical History: - - left carpal tunnel, L ureteral stent for obstructed stone and removal 07/2013, partial bowel resection Lives: With Family Smoking Status: Former smoker - He reports quitting smoking about a month ago. - *Family History Paternal Family History: Family History (Last Reviewed 10/26/18 @ 09:24 by Dakota Gonzales MD) Father neg FH of ASCVD History Items: - - Denies family history of coronary artery disease Sibling Family History: Family History (Last Reviewed 10/26/18 @ 09:24 by Dakota Gonzales MD) Father neg FH of ASCVD History Items: Cancer - colon, COPD Review of Systems Constitutional: Reports: Malaise, Weight Change, Fatigue HEENT: Denies: Head Aches, Sinus Congestion, Sinus Drainage Cardiovascular: Denies: Chest Pain, Palpitations Respiratory: Reports: Shortness of Breath, Shortness of breath upon exertion. Denies: Cough, Shortness of breath at rest, Sputum production Gastrointestinal: Reports: Nausea, Vomiting. Denies: Abdominal Pain Genitourinary: Denies: Dysuria Musculoskeletal: Denies: Joint Pain, Joint Tenderness Skin: Denies: Rash, Wounds Neurological: Denies: Numbness, Tingling, Focal weakness Psychiatric: Denies: Anxiety, Depression, Homicidal Ideations, Suicidal Ideations Hematologic/ Lymphatic: Denies: Easy Bruising, Easy Bleeding Patient Problems: Active and Suspected Problems (Last Reviewed 10/26/18 @ 09:22 by Dakota Gonzales MD) Hydronephrosis (Acute) - Physical Exam General: Oriented x3, - - patient is somewhat somnolent, answers questions somewhat begrudgingly HEENT: Atraumatic, PERRLA, EOMI Neck: Supple, Negative Carotid Bruits Lungs: - - very distant breath sounds, few wheezes and coarse sounds grossly diminished Cardiovascular: Regular rate, Regular Rhythm, - - no obvious murmurs noted but distant heart tones Abdomen: Bowel Sounds Present, Soft, Non Tender - well-healed midline incision consistent with his previous surgical procedure Vital Signs Temp Pulse Resp BP Pulse Ox 98.6 F 103 H 18 151/82 H 96 10/27/18 08:12 10/27/18 11:00 10/27/18 08:12 10/27/18 08:12 10/27/18 08:12 Oxygen Flow Rate (L/min) 3 Oxygen Delivery Method Nasal Cannula Weight: 41.2 kg Body Mass Index (BMI) 15.0 Intake and Output for Last 24 Hours 10/25/18 10/26/18 10/27/18 23:59 23:59 23:59 Intake Total 1777 / 1777 1103 / 1103 Output Total 75 / 75 Balance 1777 / 1777 1028 / 1028 Microbiology Past 72 Hours 10/26/18 04:10 Respiratory Panel (PCR) - Final Mucosa - Nasopharyngeal Laboratory Tests Past 24 Hrs 10/26/18 10/27/18 10/27/18 08:20 06:50 06:50 WBC 6.9 RBC 4.32 L Hgb 12.6 L Hct 40.0 MCV 92.6 MCH 29.2 MCHC 31.5 L RDW 12.8 RDW Differential 42.2 Plt Count 177 MPV 10.3 Immature Gran % (Auto) 0.100 Neut % (Auto) 90.3 H Lymph % (Auto) 4.5 L [place] % (Auto) 5.0 Eos % (Auto) 0.0 Baso % (Auto) 0.1 Absolute Neuts (auto) 6.2 Absolute Lymphs (auto) 0.31 L Total Counted Not Reportable Differential Comment SCANNED Diff Path Review Reviewed Sodium 142 Potassium 4.1 Chloride 98 Carbon Dioxide 36.0 H Anion Gap 8 BUN 44 H Creatinine 2.16 H Estim Creat Clear Calc 18.54 Est GFR (MDRD) Af Amer 39 L Est GFR (MDRD) Non-Af 32 L BUN/Creatinine Ratio 20.4 H Glucose 164 H Hemoglobin A1c Calcium 9.5 Phosphorus Magnesium Total Bilirubin Direct Bilirubin AST ALT Alkaline Phosphatase Total Protein Albumin Globulin Blood Type Antibody Screen 10/27/18 10/27/18 10/27/18 06:50 06:50 08:55 WBC RBC Hgb 12.2 L Hct 39.0 L MCV MCH MCHC RDW RDW Differential Plt Count MPV Immature Gran % (Auto) Neut % (Auto) Lymph % (Auto) [place] % (Auto) Eos % (Auto) Baso % (Auto) Absolute Neuts (auto) Absolute Lymphs (auto) Total Counted Differential Comment Diff Path Review Sodium Potassium Chloride Carbon Dioxide Anion Gap BUN Creatinine Estim Creat Clear Calc Est GFR (MDRD) Af Amer Est GFR (MDRD) Non-Af BUN/Creatinine Ratio Glucose Hemoglobin A1c 6.0 Calcium Phosphorus 4.1 Magnesium 1.8 Total Bilirubin 0.40 Direct Bilirubin 0.14 AST 10 L ALT 22 Alkaline Phosphatase 85 Total Protein 7.1 Albumin 3.4 Globulin 3.7 Blood Type Antibody Screen 10/27/18 08:55 WBC RBC Hgb Hct MCV MCH MCHC RDW RDW Differential Plt Count MPV Immature Gran % (Auto) Neut % (Auto) Lymph % (Auto) [place] % (Auto) Eos % (Auto) Baso % (Auto) Absolute Neuts (auto) Absolute Lymphs (auto) Total Counted Differential Comment Diff Path Review Sodium Potassium Chloride Carbon Dioxide Anion Gap BUN Creatinine Estim Creat Clear Calc Est GFR (MDRD) Af Amer Est GFR (MDRD) Non-Af BUN/Creatinine Ratio Glucose Hemoglobin A1c Calcium Phosphorus Magnesium Total Bilirubin Direct Bilirubin AST ALT Alkaline Phosphatase Total Protein Albumin Globulin Blood Type A POSITIVE Antibody Screen NEGATIVE Assessment/Plan All Active Problems (Last Reviewed 10/26/18 @ 09:22 by Dakota Gonzales MD) Hydronephrosis (Acute) COPD with acute exacerbation (Acute) gastric and duodenal distention-recently worked up in [place] felt to not truly be gastric outlet obstruction/SMA syndrome, history of Crohn's disease with resection, nausea, vomiting, coffee grounds and emesis Agree with maintaining the patient on a proton pump inhibitor currently. CT scan didn't demonstrate significant gastric distention was felt to be duodenal distention. Due to lack of contrast in patient's lack of body fat difficult to assess additional palpable findings. Patient has a known history of Crohn's disease. He recalls he underwent surgery likely in [place] with a small bowel resection he states [address] scan and small bowel series in 2013 were felt to be consistent with terminal Crohn's disease. There is also question on the CT scan of an anastomotic stricture We'll attempt a repeat CT scan with oral contrast to evaluate for progression through these areas.. Most likely patient will require repeat upper endoscopy to assess for Justine-Hamlin tear versus peptic ulcer disease. Recent endoscopy in [place] demonstrated mild gastritis was H. pylori negative. Patient uncertain when his last colonoscopy was performed. No obtainable records of colonoscopies locally. Patient with significant medical comorbidities including severe COPD, coronary disease, renal failure.
--- NOTE | 2018-10-27 12:26 | CON.PCM_ITS ---
Reason for Consult Date of Consultation: 10/27/18 Reason for Consultation: nausea and vomiting with gastric distention History of Present Illness: The patient is a 68 year old M presents with COPD exacerbation with an additional issue of nausea and vomiting with significant gastric distention. Overall the patient is a poor historian. The patients recently noted worsening COPD. He was admitted to the hospital on October 25 tachycardic on BiPAP mask. With was felt to be an underlying COPD exacerbation of her plans for him to be discharged to home but the patient noted increased abdominal distention and vomited coffee grounds. hemoglobin at admission was 14.3. Hemoglobin this morning was 12.2. KUB demonstrated significant gastric distention. A CT scan of the abdomen pelvis without oral contrast was obtained and this demonstrated: IMPRESSION: Fluid filled markedly distended stomach and duodenum with the point of obstruction somewhere anterior to the aorta. 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 Bilateral calyceal calculi. A right-sided hydronephrosis without any demonstrable obstructing calculus right ureter Plate atelectatic changes in the right lung base The patient has similar issue of abdominal distention nausea and vomiting for which he was admitted to [facility] from 07/06/18 to 07/13/18. Discharge summary from [facility] revealed: Mr. Vila was admitted with intractable nausea/vomiting and weight loss. There was an initial concern for small bowel obstruction as such, he was made NPO and a NG tube was placed. He was followed by GI and general surgery service. He was eventually started on TPN due to poor PO intake. A barium swallow showed prominent dilatation of the duodenum, measuring up to approximately 6 cm. ?The ?jejunum and ileum appear decompressed with concern for SMA syndrome. Gastric emptying study was unremarkable, an EGD showed no obstruction, did show some esophagitis and trauma due to NG tube insertion. Biopsies were negative for H pylori but confirmed chronic gastritis. His symptoms did eventually resolve, he was advanced to regular diet and tolerated PO intake well. His TPN was discontinued and he was discharged home in stable medical condition to continue on PPI and followup with GI as outpatient. Upper GI report from [facility] on July 07, 2018 demonstrated the following findings: FINDINGS: Initial edger operator film demonstrates a nonspecific bowel gas pattern. ?An enteric tube extends into the mid stomach. ? No obvious esophageal abnormality is identified. ?No stricture or mass. ?No reflux. ? There is a normal appearance of the stomach without an obvious mass or persis tent contrast collection. ?There is normal gastric evacuation of contrast into the proximal small bowel. ? The duodenum is dilated, measuring up to nearly 6 cm. ?The remainder of the small bowel is normal in caliber. ?Contrast makes its way to the colon approximately 3.5 ?hours after ingestion. ?There is no significant mucosal fold thickening. ?No obvious mass, stricture or extrinsic mass effect. ?Spot films of the terminal ileum demonstrate a normal appearance. ? IMPRESSION: Prominent dilatation of the duodenum, measuring up to approximately 6 cm. ?The jejunum and ileum appear decompressed. ?Correlate clinically to the possibility of ?SMA syndrome. EGD report demonstrated: ? DATE OF SURGERY/PROCEDURE: ?07/11/2018 ? INCISION/PROCEDURE START TIME: ?10:33. ? INCISION CLOSE/PROCEDURE END TIME: ?10:51. ? PREOPERATIVE DIAGNOSIS: ?See below ? POSTOPERATIVE DIAGNOSIS: ?See below ? SURGEON: ?Geovanny Adams MD ? VACCINE MANAGER: ?Mino Petresen. ? SURGERY/PROCEDURE: ?Esophagogastroduodenoscopy with biopsies. ? ANESTHESIA: ?Monitored Anesthesia Care ? LOG ID: ?[id number]. ? PREOPERATIVE DIAGNOSES: 1. Nausea and vomiting. 2. 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 ? POSTOPERATIVE DIAGNOSES: 1. No ?duodenal ?obstruction seen, tortuous descending duodenum, but no evidence ?of ?any obstruction. 2. Grade B esophagitis at GE junction. 3. NG tube trauma. ? CONSENT: ?Risks and benefits of the procedure were discussed with the patient and ?consent was obtained. ? ENDOSCOPE: ?Olympus adult gastroscope. ? MEDICATIONS: ?MAC sedation. ? DESCRIPTION OF THE PROCEDURE: ?The procedure was performed in the endoscopy suite. ?The patient was placed in left lateral decubitus position. ?The patient was monitored throughout. ?Once the patient was sedated, a bite block was placed. ?The ?endoscope was inserted in the esophagus, stomach, and duodenum. ?The esophagus and ?its upper, middle, and thirds were normal. ?However, on the GE junction, there were ?a lot of erosive changes consistent with some grade B esophagitis. ?There was a 2 ?centimeter hiatal hernia. ?Z-line appeared to be at 42 centimeters. ?The diaphragmatic hiatus was at 44 centimeters. ?The stomach exam did not have any ?debris or fluid within it. ?NG tube was removed. ?There were some NG tube trauma ?fields in various areas of the stomach. ?Random gastric biopsies were obtained. ?The ?stomach was significantly J-shaped. ?The duodenum was examined well into or through ?the fourth portion of the duodenum. ?I did not see any obstructive process. ?I did ?not see any mass lesions. ?There was some tortuosity to the postbulbar descending ?part of the duodenum, but again, I did not find any stricturing or obstruction. ?There was no significant dilation of the duodenum neither. ?Scope was then withdrawn. ?The patient was transferred to recovery room in stable condition. Pathology from his upper endoscopy at [facility] on July 11, 2018 demonstrated mild gastritis was H. pylori negative. hemoglobin at discharge on that admission was 11. The patient is a complex medical history including advanced COPD with hyperinflation but a decreased FEV1, a previous nonST segment myocardial infarction still with apparently good cardiac function. He has a history of chronic renal insufficiency. The patient states she has a previous history of Crohn's disease for which she underwent an exploratory laparotomy with resection he says of 2 feet of distal bowel. He is uncertain where the surgical procedure was performed. He recalls it happened in [place]. Patient underwent upper endoscopy Dr. David Price on December 2014 when he was found to have maroon stools. Upper endoscopy at that time was unremarkable. prior to that he was scheduled for colonoscopy in 2012. He had undergone CT scan of the abdomen and pelvis which demonstrated: IMPRESSION: 1. Small wall inflammation seen with reactivation of Crohn's disease. 2. Anastomotic stenosis of the distal ileum with terminal ileitis. 3. No complete small bowel obstruction, however a partial or functional obstruction at the site of the anastomotic stenosis suspected. 4. Likely hepatic hemangiomata. 5. Reactive changes of the colon rather than colitis suspected. 6. Extensive arterial sclerosis. 7. Remote granulomatous disease. He then underwent small bowel follow-through on March 24, 2013 which demonstrated FINDINGS: The small bowel transit is normal. There is evidence of thickening of the terminal ileum with separation of bowel loops. There is deformity of the medial portion of the cecum. This is intimal with the active Crohn's disease with inflammatory process. IMPRESSION: Findings suggestive of active Crohn's disease involving the terminal ileum and surrounding cecum. Past Medical History Past Medical History (Chronic Problems): Chronic Problems (Last Reviewed 10/26/18 @ 09:22 by Dakota Gonzales MD) Acute kidney injury superimposed on chronic kidney disease (Chronic) Stage 4 very severe COPD by GOLD classification (Chronic) Non-rheumatic tricuspid valve insufficiency (Chronic) mild 1+ regurg per echo 01/21/2015 done @ [facility] Atherosclerosis of coronary artery of [place] heart without angina pectoris (Chronic) 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 Nicotine abuse (Chronic) Hypertension (Chronic) COLD (chronic obstructive lung disease) (Chronic) CKD (chronic kidney disease) stage 4, GFR 15-29 ml/min (Chronic) Following with Dr. Chapman Medical History: Medical History (Last Reviewed 10/26/18 @ 09:22 by Dakota Gonzales MD) Non-rheumatic tricuspid valve insufficiency (Chronic) I36.1 mild 1+ regurg per echo 01/21/2015 done @ [facility] Atherosclerosis of coronary artery of [place] heart without angina pectoris (Chronic) I25.10 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 Nicotine abuse (Chronic) Z72.0 Hypertension (Chronic) I10 COLD (chronic obstructive lung disease) (Chronic) J44.9 CKD (chronic kidney disease) stage 4, GFR 15-29 ml/min (Chronic) N18.[address] Chapman Arthritis M19.90 Crohns disease K50.90 Non-ST elevation (NSTEMI) myocardial infarction Onset Date: 01/09/15 I21.4 Small bowel obstruction K56.609 Allergies Penicillins Adverse Reaction (Verified 10/25/18 20:16) Other Home Medications: Ambulatory Orders Medication Instructions Recorded Loperamide [Imodium] 2 mg PO DAILY 01/17/15 Mesalamine [Pentasa] 500 mg PO DAILY 12/20/17 albuterol sulfate 2.5 mg/3 mL 2.5 mg INHALATION Q4H PRN PRN #180 06/23/18 (0.083 %) solution for nebulization vial albuterol sulfate HFA 90 2 puff INHALATION Q4H PRN g 06/23/18 mcg/actuation aerosol inhaler Guaifenesin [Mucinex] 600 mg PO BID 10/25/18 Atorvastatin Calcium [Lipitor] 20 mg PO QDAY 10/26/18 Budesonide/Formoterol 160/4.5 1 puff INHALATION DAILY 10/26/18 [Symbicort 160/4.5 Mcg Inhaler (SP)] Lisinopril [Prinivil] 5 mg PO QDAY 10/26/18 Tiotropium [place] [Spiriva 18 MCG] 1 cap INHALATION DAILY 10/26/18 Surgical History: Surgical History (Last Reviewed 09/28/18 @ 09:22 by May Dhillon) History of left heart catheterization Onset Date: 01/09/15 Z98.890 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 Surgical History: - - left carpal tunnel, L ureteral stent for obstructed stone and removal 07/2013, partial bowel resection Lives: With Family Smoking Status: Former smoker - He reports quitting smoking about a month ago. - *Family History Paternal Family History: Family History (Last Reviewed 10/26/18 @ 09:24 by Dakota Gonzales MD) Father neg FH of ASCVD History Items: - - Denies family history of coronary artery disease Sibling Family History: Family History (Last Reviewed 10/26/18 @ 09:24 by Dakota Gonzales MD) Father neg FH of ASCVD History Items: Cancer - colon, COPD Review of Systems Constitutional: Reports: Malaise, Weight Change, Fatigue HEENT: Denies: Head Aches, Sinus Congestion, Sinus Drainage Cardiovascular: Denies: Chest Pain, Palpitations Respiratory: Reports: Shortness of Breath, Shortness of breath upon exertion. Denies: Cough, Shortness of breath at rest, Sputum production Gastrointestinal: Reports: Nausea, Vomiting. Denies: Abdominal Pain Genitourinary: Denies: Dysuria Musculoskeletal: Denies: Joint Pain, Joint Tenderness Skin: Denies: Rash, Wounds Neurological: Denies: Numbness, Tingling, Focal weakness Psychiatric: Denies: Anxiety, Depression, Homicidal Ideations, Suicidal Ideations Hematologic/ Lymphatic: Denies: Easy Bruising, Easy Bleeding Patient Problems: Active and Suspected Problems (Last Reviewed 10/26/18 @ 09:22 by Dakota Gonzales MD) Hydronephrosis (Acute) - Physical Exam General: Oriented x3, - - patient is somewhat somnolent, answers questions somewhat begrudgingly HEENT: Atraumatic, PERRLA, EOMI Neck: Supple, Negative Carotid Bruits Lungs: - - very distant breath sounds, few wheezes and coarse sounds grossly diminished Cardiovascular: Regular rate, Regular Rhythm, - - no obvious murmurs noted but distant heart tones Abdomen: Bowel Sounds Present, Soft, Non Tender - well-healed midline incision consistent with his previous surgical procedure Vital Signs Temp Pulse Resp BP Pulse Ox 98.6 F 103 H 18 151/82 H 96 10/27/18 08:12 10/27/18 11:00 10/27/18 08:12 10/27/18 08:12 10/27/18 08:12 Oxygen Flow Rate (L/min) 3 Oxygen Delivery Method Nasal Cannula Weight: 41.2 kg Body Mass Index (BMI) 15.0 Intake and Output for Last 24 Hours 10/25/18 10/26/18 10/27/18 23:59 23:59 23:59 Intake Total 1777 / 1777 1103 / 1103 Output Total 75 / 75 Balance 1777 / 1777 1028 / 1028 Microbiology Past 72 Hours 10/26/18 04:10 Respiratory Panel (PCR) - Final Mucosa - Nasopharyngeal Laboratory Tests Past 24 Hrs 10/26/18 10/27/18 10/27/18 08:20 06:50 06:50 WBC 6.9 RBC 4.32 L Hgb 12.6 L Hct 40.0 MCV 92.6 MCH 29.2 MCHC 31.5 L RDW 12.8 RDW Differential 42.2 Plt Count 177 MPV 10.3 Immature Gran % (Auto) 0.100 Neut % (Auto) 90.3 H Lymph % (Auto) 4.5 L Clinch % (Auto) 5.0 Eos % (Auto) 0.0 Baso % (Auto) 0.1 Absolute Neuts (auto) 6.2 Absolute Lymphs (auto) 0.31 L Total Counted Not Reportable Differential Comment SCANNED Diff Path Review Reviewed Sodium 142 Potassium 4.1 Chloride 98 Carbon Dioxide 36.0 H Anion Gap 8 BUN 44 H Creatinine 2.16 H Estim Creat Clear Calc 18.54 Est GFR (MDRD) Af Amer 39 L Est GFR (MDRD) Non-Af 32 L BUN/Creatinine Ratio 20.4 H Glucose 164 H Hemoglobin A1c Calcium 9.5 Phosphorus Magnesium Total Bilirubin Direct Bilirubin AST ALT Alkaline Phosphatase Total Protein Albumin Globulin Blood Type Antibody Screen 10/27/18 10/27/18 10/27/18 06:50 06:50 08:55 WBC RBC Hgb 12.2 L Hct 39.0 L MCV MCH MCHC RDW RDW Differential Plt Count MPV Immature Gran % (Auto) Neut % (Auto) Lymph % (Auto) Clinch % (Auto) Eos % (Auto) Baso % (Auto) Absolute Neuts (auto) Absolute Lymphs (auto) Total Counted Differential Comment Diff Path Review Sodium Potassium Chloride Carbon Dioxide Anion Gap BUN Creatinine Estim Creat Clear Calc Est GFR (MDRD) Af Amer Est GFR (MDRD) Non-Af BUN/Creatinine Ratio Glucose Hemoglobin A1c 6.0 Calcium Phosphorus 4.1 Magnesium 1.8 Total Bilirubin 0.40 Direct Bilirubin 0.14 AST 10 L ALT 22 Alkaline Phosphatase 85 Total Protein 7.1 Albumin 3.4 Globulin 3.7 Blood Type Antibody Screen 10/27/18 08:55 WBC RBC Hgb Hct MCV MCH MCHC RDW RDW Differential Plt Count MPV Immature Gran % (Auto) Neut % (Auto) Lymph % (Auto) Clinch % (Auto) Eos % (Auto) Baso % (Auto) Absolute Neuts (auto) Absolute Lymphs (auto) Total Counted Differential Comment Diff Path Review Sodium Potassium Chloride Carbon Dioxide Anion Gap BUN Creatinine Estim Creat Clear Calc Est GFR (MDRD) Af Amer Est GFR (MDRD) Non-Af BUN/Creatinine Ratio Glucose Hemoglobin A1c Calcium Phosphorus Magnesium Total Bilirubin Direct Bilirubin AST ALT Alkaline Phosphatase Total Protein Albumin Globulin Blood Type A POSITIVE Antibody Screen NEGATIVE Assessment/Plan All Active Problems (Last Reviewed 10/26/18 @ 09:22 by Dakota Gonzales MD) Hydronephrosis (Acute) COPD with acute exacerbation (Acute) gastric and duodenal distention-recently worked up in [place] felt to not truly be gastric outlet obstruction/SMA syndrome, history of Crohn's disease with resection, nausea, vomiting, coffee grounds and emesis Agree with maintaining the patient on a proton pump inhibitor currently. CT scan didn't demonstrate significant gastric distention was felt to be duodenal distention. Due to lack of contrast in patient's lack of body fat difficult to assess additional palpable findings. Patient has a known history of Crohn's disease. He recalls he underwent surgery likely in [place] with a small bowel resection he states [address] scan and small bowel series in 2013 were felt to be consistent with terminal Crohn's disease. There is also question on the CT scan of an anastomotic stricture We'll attempt a repeat CT scan with oral contrast to evaluate for progression through these areas.. Most likely patient will require repeat upper endoscopy to assess for Justine- Hamlin tear versus peptic ulcer disease. Recent endoscopy in [place] demonstrated mild gastritis was H. pylori negative. Patient uncertain when his last colonoscopy was performed. No obtainable records of colonoscopies locally. Patient with significant medical comorbidities including severe COPD, coronary disease, renal failure.
[2018-10-27] MEDS: dilTIAZem 25 MG/5 ML Vial 10 MG IV BOLUS (12:55)
[2018-10-27] MEDS: Lidocaine Jelly 2% 20 ML Syringe (URO-JET) 20 APPLIC TOPICAL (12:55)
[2018-10-27 14:24] LABS: Color, Urine Yellow (Yellow); Glucose, Dipstick Normal (Normal); Ketone-Dipstick 5 mg/dl (Negative); Leukocyte Esterase-Dipstick Negative /ul (Negative); Nitrite-Dipstick Negative (Negative); Occult Blood-Urine 10 /ul (Negative); Protein-Dipstick 30 mg/dl (Negative); Specific Gravity, Urine 1.025 (1.002-1.030); Urine Bilirubin Dipstick Negative (Negative); Urine Clarity Clear (Clear); Urine Urobilinogen Normal (Normal)
[2018-10-27 14:30] LABS: Bacteria RARE /hpf (None Seen); Mucous, Urine RARE /hpf (<or=2+); Red Blood Cells-Urine 0-5 SEEN /hpf (0-5); Squamous Epithelial Cells - UA 0-5 SEEN /hpf (0-5); White Blood Cells 0-5 SEEN /hpf (0-5)
[2018-10-27 14:38] LABS: Urine Sodium 28 mmol/L (Not Establ.)
[2018-10-27 14:56] LABS: Hematocrit 34.2 % (40-54); Hemoglobin 10.6 g/dl (13.0-16.5)
[2018-10-27] MEDS: Ipratropium/Albuterol Sulfate 3 ML AMPUL.NEB INHALATION (18:44)
[2018-10-27 21:15] LABS: Hematocrit 32.8 % (40-54)
[2018-10-28] VITALS (29 sets, daily range): BP systolic 100–144; BP diastolic 59–91; PULSE 71–98; RESP 16–26; TEMP 36.6–37.4; O2SAT 92–100
--- NOTE | 2018-10-28 | EGD_PTH ---
PATIENT: MARK SERRANO LOC: [facility] U#:[id number] AGE/SX: 68/M ROOM: [facility] RE10/26/[address]: Dr. Mojgan Valdez DO : 1950 BED: 1 DIS: 10/30/2018 SPEC #: [id number] RECD: 10/28/18 13:14 STATUS: SALEEM REQ #: [id number] GHAZALA: 10/28/18 00:[address]: Rocky Kamara DEPT: SURGICAL PATHOLOGY RECD BY: Darius Vargas ENTERED: 10/28/18 13:14 SP TYPE: EGD BIOPSY OTHR DR: MD Dr. Mojgan Strauss DO Dr. Joseph Agyepong, MD Dr. Richard Guttman, MD Dr. Tai Chi Kwok, MD Tissues: A - Jejunum, NOS B - Gastric mucous membrane C - Gastric mucous membrane Procedures: Special Stain Group I Surgery Specimen Level IV GMS Stain (control) Comments: @ Ordering doctor for SUIV edited from to @ by SCOTTIE at 10/28/18 1316 @ Submitting doctor edited from to DR.RGUTTM Garcia by ANNOD at 10/28/18 1316 HEADER OPERATION: EGD ([facility] [place]) PRE-OP DIAGNOSIS: Nausea and vomiting, possible duodenal obstruction, superior mesenteric artery syndrome TISSUE SUBMITTED: A - Jejunum biopsy, B - Antral biopsy for H. pylori and path, C - GE junction biopsy MICROSCOPIC DIAGNOSIS A. Jejunum, biopsy: No pathologic diagnosis. B. Gastric antrum, biopsy: Mild chronic inflammation. C. Gastroesophageal junction, biopsy: Mild chronic and focal acute inflammation. Negative for fungal organisms. AM:hill 10/31/18 COMMENT B. The results of immunohistochemistry for Helicobacter pylori will be reported separately ([id number]). C. GMS stain with matched control was used in the evaluation of this case. MICROSCOPIC DESCRIPTION Slides are reviewed. GROSS DESCRIPTION A - Received in fixative is one container labeled with the patient's name and designated jejunum. The specimen consists of one irregular fragment of light lombardi soft tissue that measures 0.2 x 0.2 x 0.1 cm. The specimen is totally submitted in one cassette. B - Received in fixative is one container labeled with the patient's name and designated antrum biopsy. The specimen consists of one irregular fragment of light lombardi soft tissue that measures 0.3 x 0.2 x 0.1 cm. The specimen is totally submitted in one cassette. C - Received in fixative is one container labeled with the patient's name and designated GE junction biopsy. The specimen consists of one irregular fragment of light lombardi soft tissue that measures 0.2 x 0.2 x 0.1 cm. The specimen is totally submitted in one cassette. / SJ:rg 10/28/18 TC:2 CPT: 39252 x3, 29383
[2018-10-28] MEDS: Metoclopramide 10 MG/2 ML Vial IV (00:06)
[2018-10-28] MEDS: 0.9% Normal Saline 1,000 ML 75 ML IV ×2 (00:06→13:22)
[2018-10-28 07:06] LABS: Hematocrit 33.3 % (40-54); Hemoglobin 10.1 g/dl (13.0-16.5); Mean Corp Hgb Conc 30.3 g/gl (32-36); Mean Corpuscular Hgb 28.4 pg (27.0-32.0); Mean Corpuscular Volume 93.5 fL (80-94); Mean Platelet Vol. 9.6 fl (6.2-12.0); Platelet Count 164 K/mm3 (150-450); RBC Distribution Width CV 13.1 % (11.6-14.6); RBC Distribution Width SD 44.8 fl (35.1-43.9); Red Blood Count 3.56 M/mm3 (4.6-6.2); White Blood Count 6.8 K/mm3 (4.4-11.0)
[2018-10-28 07:08] LABS: Scan Indicated on CBC? Y/N NO
[2018-10-28 07:13] LABS: Anion Gap 7 (5-15); BUN 46 mg/dL (7-18); BUN/Creat Ratio 28.2 RATIO (10-20); Calcium,Total 8.6 mg/dL (8.5-10.1); Chloride 103 mmol/L (98-107); Creatinine, Serum 1.63 mg/dL (0.70-1.30); EST Glomerular Filtration Rate 45 mL/min (>60); Est Glom Filt Rate - Afr Amer 54 mL/min (>60); Estimated Creatinine Clearance 24.57 ml/min; Glucose 129 mg/dL (74-106); Magnesium 1.9 mg/dL (1.6-2.6); Potassium 4.7 mmol/L (3.5-5.1); Sodium Level 143 mmol/L (136-145)
[2018-10-28] MEDS: Ipratropium/Albuterol Sulfate 3 ML AMPUL.NEB INHALATION ×4 (07:17→23:16)
--- NOTE | 2018-10-28 11:00 | IMM_PTH ---
PATIENT: MARK SERRANO LOC: [facility] U#:[id number] AGE/SX: 68/M ROOM: [facility] RE10/26/[address]: Dr. Mojgan Valdez DO : 1950 BED: 1 DIS: 10/30/2018 SPEC #: [id number] RECD: 10/28/18 13:16 STATUS: SALEEM REQ #: [id number] GHAZALA: 10/28/18 11:[address]: Rocky Kamara DEPT: IMMUNOHISTOCHEMISTRY RECD BY: Leilani Westbrook ENTERED: 10/28/18 13:17 SP TYPE: IMMUNO OTHR DR: MD Dr. Mojgan Strauss DO Dr. Joseph Agyepong, MD Dr. Tai Chi Kwok, MD Tissues: B - Stomach, NOS Procedures: H Pylori (initial) PHYSICIAN & INSTITUTION [place] [id number] SPECIMEN INFORMATION: Tissue Source: B - Antral biopsy Clinical Info: Nausea and vomiting Specimen Number: [id number] CPT code: 16339 METHODOLOGY: Deparaffinized sections of prefer/formalin-fixed tissue or PAP/DQ stained slides are incubated with monoclonal/polyclonal antibodies/oligonucleotide probes. Localization is made via biotin free immunoperoxidase method. Appropriate controls are performed and reacted as expected. Results on target cell population are indicated in the following table: RESULTS: ANTIBODY / CLONE RESULT Block B H Pylori (polyclonal) negative These tests were developed and their performance characteristics determined by [facility]. They may not have been cleared or approved by the U.S. Food and Drug Administration. The FDA has determined that such clearance or approval is not necessary. INTERPRETATION: B. Antral biopsy: Negative for Helicobacter pylori organisms. AM:hill 10/31/18
--- NOTE | 2018-10-28 11:55 | OP.ENDO_ITS ---
Patient Name: Stu Vila Procedure Date: 10/28/2018 10:29 AM Date of : 1950 Age: 68 Procedure: Upper GI endoscopy Indications: Nausea with vomiting Providers: Rocky Kamara MD Medicines: Monitored Anesthesia Care Patient Profile: This is a 68 year old male. Refer to note in patient chart for documentation of history and physical. Complications: No immediate complications. Procedure: Pre-Anesthesia Assessment: - Prior to the procedure, a History and Physical was performed, and patient medications and allergies were reviewed. The patient is competent. The risks and benefits of the procedure and the sedation options and risks were discussed with the patient. All questions were answered and informed consent was obtained. Patient identification and proposed procedure were verified by the physician, the nurse and the activities concierge in the procedure room. Mental Status Examination: alert and oriented. Airway Examination: normal oropharyngeal airway and neck mobility. Respiratory Examination: clear to auscultation. CV Examination: normal. Prophylactic Antibiotics: The patient does not require prophylactic antibiotics. Prior Anticoagulants: The patient has taken no previous anticoagulant or antiplatelet agents. ASA Grade Assessment: IV - A patient with severe systemic disease that is a constant threat to life. After reviewing the risks and benefits, the patient was deemed in satisfactory condition to undergo the procedure. The anesthesia plan was to use monitored anesthesia care (MAC). Immediately prior to administration of medications, the patient was re-assessed for adequacy to receive sedatives. The heart rate, respiratory rate, oxygen saturations, blood pressure, adequacy of pulmonary ventilation, and response to care were monitored throughout the procedure. The physical status of the patient was re-assessed after the procedure. After obtaining informed consent, the endoscope was passed under direct vision. Throughout the procedure, the patient's blood pressure, pulse, and oxygen saturations were monitored continuously. The gastroscope was introduced through the mouth, and advanced to the jejunum. The upper GI endoscopy was accomplished without difficulty. The patient tolerated the procedure well. Scope In: 11:40:44 AM Scope Out: 11:45:35 AM Total Procedure Duration Time 0 hours 4 minutes 51 seconds Findings: The examined jejunum was normal. Biopsies were taken with a cold forceps for histology. The examined duodenum was normal. Patchy mild inflammation characterized by erythema and granularity was found in the entire examined stomach. Biopsies were taken with a cold forceps for histology. Biopsies were taken with a cold forceps for Helicobacter pylori testing using PyloriTek test. Biopsies were taken with a cold forceps for histology. Non-severe esophagitis with no bleeding was found. Biopsies were taken with a cold forceps for histology. Impression: - Normal examined jejunum. Biopsied. - Normal examined duodenum. - Gastritis. Biopsied. - Non-severe reflux esophagitis. Biopsied. Recommendation: - Await pathology results. - Clear liquid diet. - Continue present medications. Procedure Code(s): --- Professional --- 31683, Esophagogastroduodenoscopy, flexible, transoral; with biopsy, single or multiple CPT copyright 2017 [employer]. All rights reserved. The codes documented in this report are preliminary and upon internal consultant review may be revised to meet current compliance requirements. Rocky Kamara MD 10/28/2018 11:55:22 AM This report has been signed electronically. Number of Addenda: 0 Note Initiated On: 10/28/2018 10:29 AM
--- NOTE | 2018-10-28 14:53 | PN_ITS ---
Patient Problems: Active and Suspected Problems (Last Reviewed 10/26/18 @ 09:22 by Dakota Gonzales MD) Hydronephrosis (Acute) Subjective: All events of the past 24 hours of been reviewed. T-max 99.4 Blood pressures are stable. Telemetry-normal sinus rhythm with no atrial fibrillation with rapid ventricular response since 10/27/2018 Respiratory rate is 20 and he is 95-99% saturated on a 4 L nasal cannula. Laboratory: White blood cell count is normal at 6.8. Hemoglobin is stable at 10.1 following hydration. Platelets are within normal limits. Serum bicarb is 33, down from 36 on 10/27/2018. BUN is 46 and the creatinine is 1.63, down from 2.16 on 10/27/2018. Respiratory panel was negative. He has not produced a sputum. He is complaining of having difficulty coughing up sputum. He denies chest pain. He denies abdominal pain. He is not nauseated. EGD performed by Dr. Sutton today showed esophagitis and gastritis and biopsies were taken. The examination of the jejunum was normal. The duodenum was normal. CT scan done on 10/27/2018 following placement of NG tube and decompression showed no evidence of bowel obstruction. The stomach was still mildly distended and there were food particles. Objective: General: Alert, oriented ?3, cooperative, agitated because he came in for his lungs and he got another GI evaluation. He is not confused today like he was yesterday but he does not recall the sequence of events yesterday and he tells me that he vomited brown stuff because he had just eaten brown gravy. At home he consumes a soft diet because he has no teeth. Neck: Supple, trachea midline, no enlarged cervical nodes, no enlarged supraclavicular nodes Lungs: coarse crackles in the bases only with severely diminished breath sounds, symmetric chest expansion, not tachypneic, no conversational dyspnea, no accessory muscle use Heart: Regular rate and rhythm, normal S1, normal S2, no murmur, no gallop, no rub Abdomen: Soft, NT, ND, bowel sounds present Extremities: No clubbing, no peripheral edema, no cyanosis - Physical Exam Vital Signs Temp Pulse Resp BP Pulse Ox 99.4 F H 80 20 H 107/66 95 10/28/18 12:15 10/28/18 12:15 10/28/18 12:15 10/28/18 12:15 10/28/18 12:15 Oxygen Flow Rate (L/min) 3 Oxygen Delivery Method Nasal Cannula Weight: 90 lb 13.287 oz Body Mass Index (BMI) 15.0 Intake and Output for Last 24 Hours 10/26/18 10/27/18 10/28/18 23:59 23:59 23:59 Intake Total 1777 / 1777 3910.5 / 3910.5 869.2 / 869.2 Output Total 1425 / 1425 400 / 400 Balance 1777 / 1777 2485.5 / 2485.5 469.2 / 469.2 Microbiology Past 72 Hours 10/26/18 04:10 Respiratory Panel (PCR) - Final Mucosa - Nasopharyngeal Laboratory Tests Past 24 Hrs 10/27/18 10/27/18 10/28/18 14:42 21:03 06:40 WBC 6.8 RBC 3.56 L Hgb 10.6 L 10.0 L 10.1 L Hct 34.2 L 32.8 L 33.3 L MCV 93.5 MCH 28.4 MCHC 30.3 L RDW 13.1 RDW Differential 44.8 H Plt Count 164 MPV 9.6 Sodium Potassium Chloride Carbon Dioxide Anion Gap BUN Creatinine Estim Creat Clear Calc Est GFR (MDRD) Af Amer Est GFR (MDRD) Non-Af BUN/Creatinine Ratio Glucose Calcium Phosphorus Magnesium 10/28/18 06:40 WBC RBC Hgb Hct MCV MCH MCHC RDW RDW Differential Plt Count MPV Sodium 143 Potassium 4.7 Chloride 103 Carbon Dioxide 33.0 H Anion Gap 7 BUN 46 H Creatinine 1.63 H Estim Creat Clear Calc 24.57 Est GFR (MDRD) Af Amer 54 L Est GFR (MDRD) Non-Af 45 L BUN/Creatinine Ratio 28.2 H Glucose 129 H Calcium 8.6 Phosphorus 5.0 H Magnesium 1.9 Medical Necessity - Tobacco Use Smoking Status: Former smoker - He reports quitting smoking about a month ago. Assessment/Plan All Active Problems (Last Reviewed 10/26/18 @ 09:22 by Dakota Gonzales MD) Hydronephrosis (Acute) COPD with acute exacerbation (Acute) Impressions 1. acute exacerbation COPD - improved 2. acute on chronic respiratory failure with hypoxemia and hypercarbia - improving 3. Small bowel obstruction - resolved 4. Upper GI bleed - HGB is stable.....continue PPI 5. Chronic renal failure stage IV 6. Dehydration - resolved 7. Crohn's disease with history of bowel resection 8. Malnutrition 9. Hypertension 10. Coronary artery disease 11. Former smoking history-quit in 2015 12. NSTEMI in December 2014. Left heart catheterization demonstrated a possibly significant LAD stenosis however there was a small troponin release and he was discharged on medical therapy with aspirin and Plavix. 13. Gastritis 14. Nonsevere esophagitis 15. Atrial fibrillation with rapid ventricular response-has converted to normal sinus rhythm DC the cardizem drip and continue clonidine patch 0.1 mg Mucinex 1200 mg p.o. twice daily Convert to oral steroids in the a.m. Continue PPI Start clear liquids and advance as tolerated Continue aerosolized bronchodilators Discontinue the Protonix infusion and start Protonix 40 mg IV every 12 hours. Recheck lab in the a.m. Walking pulse oximetry to determine oxygen needs with exertion prior to discharge Start Reglan 5 mg p.o. 3 times daily with meals..... EKG shows QT interval to be within normal limits. Code Visit Inpatient E&M: 85321 [facility] Hosp L3
--- NOTE | 2018-10-28 17:04 | PCM.PN.REN ---
Patient Problems: Active and Suspected Problems (Last Reviewed 10/26/18 @ 09:22 by Dakota Gonzales MD) Hydronephrosis (Acute) Subjective: no new events - Physical Exam General: Alert, Oriented x3, Cooperative HEENT: Atraumatic, PERRLA, EOMI, Normocephalic Neck: Supple, No JVD, Negative Carotid Bruits Lungs: Clear to auscultation, Normal air movement Cardiovascular: Regular rate, No murmurs Abdomen: Bowel Sounds Present, Soft, Non Tender Extremities: No edema, Capillary Refill Less than 3 Seconds Skin: No rashes, No breakdown Musculoskeletal: No Tenderness to Palpation of Joints or Extremities Neurological: Cranial nerves II-XII grossly intact Psych/Mental Status: Normal Affect, Appropriate Vital Signs Temp Pulse Resp BP Pulse Ox 98.2 F 95 26 H 133/91 H 96 10/28/18 14:00 10/28/18 15:00 10/28/18 15:00 10/28/18 15:00 10/28/18 15:00 Oxygen Flow Rate (L/min) 3 Oxygen Delivery Method Nasal Cannula Weight: 41.2 kg Body Mass Index (BMI) 15.0 Intake and Output for Last 24 Hours 10/26/18 10/27/18 10/28/18 23:59 23:59 23:59 Intake Total 1777 / 1777 3910.5 / 3910.5 869.2 / 869.2 Output Total 1425 / 1425 400 / 400 Balance 1777 / 1777 2485.5 / 2485.5 469.2 / 469.2 Microbiology Past 72 Hours 10/26/18 04:10 Respiratory Panel (PCR) - Final Mucosa - Nasopharyngeal Laboratory Tests Past 24 Hrs 10/27/18 10/28/18 10/28/18 21:03 06:40 06:40 WBC 6.8 RBC 3.56 L Hgb 10.0 L 10.1 L Hct 32.8 L 33.3 L MCV 93.5 MCH 28.4 MCHC 30.3 L RDW 13.1 RDW Differential 44.8 H Plt Count 164 MPV 9.6 Sodium 143 Potassium 4.7 Chloride 103 Carbon Dioxide 33.0 H Anion Gap 7 BUN 46 H Creatinine 1.63 H Estim Creat Clear Calc 24.57 Est GFR (MDRD) Af Amer 54 L Est GFR (MDRD) Non-Af 45 L BUN/Creatinine Ratio 28.2 H Glucose 129 H Calcium 8.6 Phosphorus 5.0 H Magnesium 1.9 Medical Necessity - Tobacco Use Smoking Status: Former smoker - He reports quitting smoking about a month ago. Assessment/Plan All Active Problems (Last Reviewed 10/26/18 @ 09:22 by Dakota Gonzales MD) Hydronephrosis (Acute) COPD with acute exacerbation (Acute) 1-acute kidney injury on chronic kidney disease. Baseline creatinine seems around 1.8-2 mg a deciliter. Acute kidney injury could be from blood pressure fluctuating in addition to poor oral intake. Renal ultrasound shows new onset right-sided hydro-nephrosis which also might be contributing to worsening kidney function Cr is better 2-new onset right-sided hydronephrosis. CAT scan did not show any obstructive stone. 3-hypertension: Blood pressure is well controlled now. Okay to clonidine, lisinopril 4-COPD exacerbation. On methylprednisone and respiratory treatment as per the primary servie 5-upper GI bleed with SMA syndrome. Will defer management to the primary service
--- NOTE | 2018-10-28 18:16 | PN.SURG_ITS ---
Patient Problems: Active and Suspected Problems (Last Reviewed 10/26/18 @ 09:22 by Dakota Gonzales MD) Hydronephrosis (Acute) - Physical Exam General: Alert, Oriented x3 Lungs: Diminished, Rales, Rhonchi Cardiovascular: Regular rate, Regular Rhythm Abdomen: Soft, Non Tender, Hypoactive Bowel Sounds Vital Signs Temp Pulse Resp BP Pulse Ox 98.2 F 95 26 H 133/91 H 96 10/28/18 14:00 10/28/18 15:00 10/28/18 15:00 10/28/18 15:00 10/28/18 15:00 Oxygen Flow Rate (L/min) 3 Oxygen Delivery Method Nasal Cannula Weight: 41.2 kg Body Mass Index (BMI) 15.0 Intake and Output for Last 24 Hours 10/26/18 10/27/18 10/28/18 23:59 23:59 23:59 Intake Total 1777 / 1777 3910.5 / 3910.5 869.2 / 869.2 Output Total 1425 / 1425 400 / 400 Balance 1777 / 1777 2485.5 / 2485.5 469.2 / 469.2 Microbiology Past 72 Hours 10/26/18 04:10 Respiratory Panel (PCR) - Final Mucosa - Nasopharyngeal Laboratory Tests Past 24 Hrs 10/27/18 10/28/18 10/28/18 21:03 06:40 06:40 WBC 6.8 RBC 3.56 L Hgb 10.0 L 10.1 L Hct 32.8 L 33.3 L MCV 93.5 MCH 28.4 MCHC 30.3 L RDW 13.1 RDW Differential 44.8 H Plt Count 164 MPV 9.6 Sodium 143 Potassium 4.7 Chloride 103 Carbon Dioxide 33.0 H Anion Gap 7 BUN 46 H Creatinine 1.63 H Estim Creat Clear Calc 24.57 Est GFR (MDRD) Af Amer 54 L Est GFR (MDRD) Non-Af 45 L BUN/Creatinine Ratio 28.2 H Glucose 129 H Calcium 8.6 Phosphorus 5.0 H Magnesium 1.9 Medical Necessity - Tobacco Use Smoking Status: Former smoker - He reports quitting smoking about a month ago. Assessment/Plan All Active Problems (Last Reviewed 10/26/18 @ 09:22 by Dakota Gonzales MD) Hydronephrosis (Acute) COPD with acute exacerbation (Acute) gastric and duodenal distention-recently worked up in [place] felt to not truly be gastric outlet obstruction/SMA syndrome, history of Crohn's disease with resection, nausea, vomiting, coffee grounds and emesis Agree with maintaining the patient on a proton pump inhibitor currently. CT scan didn't demonstrate significant gastric distention was felt to be duodenal distention. Due to lack of contrast in patient's lack of body fat difficult to assess additional palpable findings. Patient has a known history of Crohn's disease. He recalls he underwent surgery likely in [place] with a small bowel resection he states [address] scan and small bowel series in 2012 were felt to be consistent with terminal Crohn's disease. There is also question on the CT scan of an anastomotic stricture Repeat CT scan with oral contrast demonstrated contrast rapidly moving to cecum Upper endoscopy demonstrated no external obstruction at the SMA, but gastritis and distal esophagitis. Would leave out NG tube, start PPI and trial liquids Patient with significant medical comorbidities including severe COPD, coronary disease, renal failure.
[2018-10-28] MEDS: Metoclopramide 10 MG Tablet 5 MG PO (18:45)
[2018-10-28] MEDS: 0.9% NaCl Peripheral Flush Adult/Peds IV (20:23)
[2018-10-28] MEDS: Atorvastatin Calcium 20 MG Tablet PO (20:23)
[2018-10-28] MEDS: guaiFENesin 1,200 MG Tablet 1200 MG PO (20:23)
--- NOTE | 2018-10-28 20:29 | NURSING ---
Pt requesting to have meds early, so he can go to sleep.
[2018-10-29] VITALS (18 sets, daily range): BP systolic 129–170; BP diastolic 59–86; PULSE 68–115; RESP 16–22; TEMP 36.7–37; O2SAT 95–100
[2018-10-29] MEDS: 0.9% Normal Saline 1,000 ML 75 ML IV ×2 (02:27→16:26)
[2018-10-29] MEDS: 0.9% NaCl Peripheral Flush Adult/Peds IV (06:16)
[2018-10-29] MEDS: Metoclopramide 10 MG Tablet 5 MG PO ×3 (06:16→16:27)
[2018-10-29] MEDS: Ipratropium/Albuterol Sulfate 3 ML AMPUL.NEB INHALATION ×5 (07:16→22:59)
[2018-10-29 07:46] LABS: Hematocrit 30.6 % (40-54); Hemoglobin 9.5 g/dl (13.0-16.5); Mean Corpuscular Hgb 28.4 pg (27.0-32.0); Mean Corpuscular Volume 91.3 fL (80-94); Mean Platelet Vol. 9.6 fl (6.2-12.0); Platelet Count 152 K/mm3 (150-450); RBC Distribution Width CV 12.7 % (11.6-14.6); RBC Distribution Width SD 42.5 fl (35.1-43.9); Red Blood Count 3.35 M/mm3 (4.6-6.2); Scan Indicated on CBC? Y/N NO; White Blood Count 4.4 K/mm3 (4.4-11.0)
[2018-10-29 07:55] LABS: Anion Gap 6 (5-15); BUN 40 mg/dL (7-18); Calcium,Total 8.5 mg/dL (8.5-10.1); Chloride 103 mmol/L (98-107); Creatinine, Serum 1.48 mg/dL (0.70-1.30); EST Glomerular Filtration Rate 50 mL/min (>60); Est Glom Filt Rate - Afr Amer 60 mL/min (>60); Estimated Creatinine Clearance 27.06 ml/min; Glucose 154 mg/dL (74-106); Potassium 4.5 mmol/L (3.5-5.1); Sodium Level 141 mmol/L (136-145)
[2018-10-29] MEDS: Mesalamine 1.2 GM Tablet 2.4 GM PO (10:46)
[2018-10-29] MEDS: predniSONE 20 MG Tablet 40 MG PO (10:46)
[2018-10-29] MEDS: Lisinopril 5 MG Tablet PO (10:47)
[2018-10-29] MEDS: Loperamide 2 MG Capsule PO (10:47)
[2018-10-29] MEDS: guaiFENesin 1,200 MG Tablet 1200 MG PO ×2 (10:47→21:10)
--- NOTE | 2018-10-29 14:15 | CPS ---
Pt does not want to use PEP device, says it hurts his lungs, causes too much pressure no matter how you adjust it. Pt says he has told Dr Ocampo this also.
--- NOTE | 2018-10-29 16:19 | PN_ITS ---
Patient Problems: Active and Suspected Problems (Last Reviewed 10/26/18 @ 09:22 by Dakota Gonzales MD) Hydronephrosis (Acute) Subjective: All events of the past 24 hours of been reviewed. He remains afebrile. Heart rate is increased today at 103-115 bpm recently. Telemetry shows normal sinus rhythm with sinus tachycardia Blood pressure is within normal limits. Pulse ox on 2 L nasal O2 is 95% and he is at his baseline. He is not coughing. He denies chest pain and he states his breathing is better. He has no bloating, no nausea and has not vomited. He had a bowel movement today. All lab was personally reviewed: Electrolytes are within normal limits and the serum bicarb today is down to 32. His BUN is 40 and his creatinine is 1.48, down from 2.16 on 10/27/2018. Hemoglobin is 9.5 today, down from 10.1 yesterday. Platelets and white blood cell count are within normal limits. Objective: General: Alert, oriented ?3, cooperative, yesterday but he does not recall the sequence of events yesterday and he tells me that he vomited brown stuff . At home he consumes a soft diet because he has no teeth. He eats salads and whole wheat bread. He is hard of hearing Neck: Supple, trachea midline, no enlarged cervical nodes, no enlarged supraclavicular nodes Lungs: Diminished throughout, symmetric chest expansion, no rales, no wheezes, no rhonchi, no conversational dyspnea, no accessory muscle use Heart: Regular rhythm, tachycardic, normal S1, normal S2, no murmur, no gallop, no rub Abdomen: Soft, NT, mild distention with increased tympany, bowel sounds present Extremities: No clubbing, no peripheral edema, no cyanosis - Physical Exam Vital Signs Temp Pulse Resp BP Pulse Ox 98.6 F 103 H 18 137/65 H 95 10/29/18 14:52 10/29/18 15:36 10/29/18 14:52 10/29/18 14:52 10/29/18 14:52 Oxygen Flow Rate (L/min) 2 Oxygen Delivery Method Nasal Cannula Weight: 90 lb 13.287 oz Body Mass Index (BMI) 15.0 Intake and Output for Last 24 Hours 10/27/18 10/28/18 10/29/18 23:59 23:59 23:59 Intake Total 3910.5 / 3910.5 1797.2 / 1797.2 1991 / 1991 Output Total 1425 / 1425 650 / 650 500 / 500 Balance 2485.5 / 2485.5 1147.2 / 1147.2 1492 / 1492 Microbiology Past 72 Hours 10/26/18 15:25 Gram Stain - Preliminary Sputum, Expectorated/Coughed 10/26/18 04:10 Respiratory Panel (PCR) - Final Mucosa - Nasopharyngeal Laboratory Tests Past 24 Hrs 10/29/18 10/29/18 06:57 06:57 WBC 4.4 RBC 3.35 L Hgb 9.5 L Hct 30.6 L MCV 91.3 MCH 28.4 MCHC 31.0 L RDW 12.7 RDW Differential 42.5 Plt Count 152 MPV 9.6 Sodium 141 Potassium 4.5 Chloride 103 Carbon Dioxide 32.0 Anion Gap 6 BUN 40 H Creatinine 1.48 H Estim Creat Clear Calc 27.06 Est GFR (MDRD) Af Amer 60 Est GFR (MDRD) Non-Af 50 L BUN/Creatinine Ratio 27.0 H Glucose 154 H Calcium 8.5 Medical Necessity - Tobacco Use Smoking Status: Former smoker - He reports quitting smoking about a month ago. Assessment/Plan All Active Problems (Last Reviewed 10/26/18 @ 09:22 by Dakota Gonzales MD) Hydronephrosis (Acute) COPD with acute exacerbation (Acute) Impressions 1. acute exacerbation COPD - improved 2. acute on chronic respiratory failure with hypoxemia and hypercarbia - improving.... He is almost at baseline 3. Small bowel obstruction - resolved 4. Upper GI bleed - HGB is stable.....continue PPI....gastritis and esophagitis on EGD with normal duodenum 5. Chronic renal failure stage IV 6. Dehydration - resolved 7. Crohn's disease with history of bowel resection 8. Malnutrition 9. Hypertension 10. Coronary artery disease 11. Former smoking history-quit in 2015 12. NSTEMI in December 2014. Left heart catheterization demonstrated a possibly significant LAD stenosis however there was a small troponin release and he was discharged on medical therapy with aspirin and Plavix. 13. Gastritis 14. Nonsevere esophagitis 15. Atrial fibrillation with rapid ventricular response-has converted to normal sinus rhythm but now has ST. Possibly due to high dose steroids and aerosols. TSH recently WNL Change diet to low residue with ground meats and moist foods Ambulatory pulse ox in the a.m. to determine oxygen requirements with ambulation Possible discharge tomorrow with home health for physical therapy low residue diet......consult the community music therapist for instruction in diet Continue Reglan 5 mg with meals Code Visit Inpatient E&M: 98322 [facility] Hosp L2
--- NOTE | 2018-10-29 18:35 | RAD_ITS ---
STUDY: X-RAY - ABDOMEN/PELVIS REASON FOR EXAM: Male, 68 years old. Abdominal distention TECHNIQUE: Two AP supine views of the abdomen and pelvis. COMPARISON: CT from 10/27/2018 FINDINGS: Normal visualized lung bases. Enteric tube has been removed. Nondilated bowel gas pattern with colonic gas confirmed. There is no demonstrated free abdominal air. The visualized liver, spleen and kidneys are grossly normal in size and morphology. Normal soft tissue structures. Normal visualized osseous structures. RAD/Abdomen Single View IMPRESSION: 1. Removal of enteric tube. No dilated loops of small bowel. Colonic gas confirmed. Electronically Signed: Geovanny Crockett MD at 18:59 EST , Service support ,
[2018-10-29] MEDS: Atorvastatin Calcium 20 MG Tablet PO (21:09)
[2018-10-30] VITALS (9 sets, daily range): BP systolic 126–142; BP diastolic 70–78; PULSE 78–101; RESP 17–24; TEMP 36.6–36.7; O2SAT 92–98
--- NOTE | 2018-10-30 02:15 | NURSING ---
Pt had not voided since Syed was removed 10/29 at 18:00. Bladder scanned at this time for 294 mL. Encouraged pt to try to void at this time even though he didn't feel like he needed to. Pt voided approx 205 mL at this time. Bladder scanned again for 28 mL. Pt reports tenderness to lower left abdomen/pubic area.
[2018-10-30] MEDS: 0.9% Normal Saline 1,000 ML 75 ML IV (05:05)
[2018-10-30] MEDS: 0.9% NaCl Peripheral Flush Adult/Peds IV (06:27)
[2018-10-30 06:29] LABS: Hematocrit 30.4 % (40-54); Hemoglobin 9.4 g/dl (13.0-16.5); Mean Corp Hgb Conc 30.9 g/gl (32-36); Mean Corpuscular Hgb 28.7 pg (27.0-32.0); Mean Platelet Vol. 9.6 fl (6.2-12.0); Platelet Count 150 K/mm3 (150-450); RBC Distribution Width CV 12.4 % (11.6-14.6); RBC Distribution Width SD 40.6 fl (35.1-43.9); Red Blood Count 3.27 M/mm3 (4.6-6.2); White Blood Count 5.6 K/mm3 (4.4-11.0)
[2018-10-30 06:33] LABS: Scan Indicated on CBC? Y/N NO
[2018-10-30] MEDS: Metoclopramide 10 MG Tablet 5 MG PO ×2 (06:38→11:32)
[2018-10-30 06:44] LABS: Anion Gap 7 (5-15); BUN 35 mg/dL (7-18); BUN/Creat Ratio 26.3 RATIO (10-20); Calcium,Total 8.1 mg/dL (8.5-10.1); Chloride 106 mmol/L (98-107); Creatinine, Serum 1.33 mg/dL (0.70-1.30); EST Glomerular Filtration Rate 56 mL/min (>60); Est Glom Filt Rate - Afr Amer 68 mL/min (>60); Estimated Creatinine Clearance 30.12 ml/min; Glucose 134 mg/dL (74-106); Potassium 3.9 mmol/L (3.5-5.1); Sodium Level 142 mmol/L (136-145)
[2018-10-30] MEDS: predniSONE 20 MG Tablet 40 MG PO (09:17)
[2018-10-30] MEDS: Loperamide 2 MG Capsule PO (09:18)
[2018-10-30] MEDS: guaiFENesin 1,200 MG Tablet 1200 MG PO (09:18)
[2018-10-30] MEDS: Lisinopril 5 MG Tablet PO (09:18)
[2018-10-30] MEDS: Mesalamine 1.2 GM Tablet 2.4 GM PO (09:33)
[2018-10-30] MEDS: Ipratropium/Albuterol Sulfate 3 ML AMPUL.NEB INHALATION ×2 (10:54→14:08)
--- NOTE | 2018-10-30 14:02 | PCM.DC ---
- Discharge Diagnoses Current Active Problems: Current Active and Chronic Problems (Last Reviewed 10/26/18 @ 09:22 by Dakota Gonzales MD) Acute exacerbation of COPD Acute on chronic respiratory failure with hypoxemia and hypercarbia Small bowel obstruction Gastritis and esophagitis Atrial fibrillation with rapid ventricular response Acute kidney injury superimposed on chronic kidney disease (Chronic) Hydronephrosis (Acute) You will use the following diet at home:: Other - low residue, no caffeine but can drink decaf coffee Your food should be the consistency of: Mechanical soft (ground) Your liquids should be the consistency of: Regular/Thin Discharge Activity: - - Avoid exposure to any strong smells such as bleach, cleaning products, strong colognes or perfumes, paint fumes and smoke of any kind. Avoid sudden exposure to cold air because this can cause bronchospasm. You may want to cover your mouth when you go outside in the winter. Avoid exposure to anyone who is sick with a cough or sore throat. Call your doctor if you observe: Fever of 101 or Higher, Shortness of breath, Dizziness, Fainting spells, Swelling in the ankles, Chest pain, Calf discomfort, - - Recurrent nausea/vomiting/bloating Instructions: Low-Residue Diet Additional Instructions: 1. I think that the nausea and vomiting and the small bowel obstructions are happening because you either have some scarring from old surgery or you have a narrowing in the small intestine due to crohn's/scarring. We started you on a medication called metoclopramide, also known as Reglan. He will take this medication 3 times daily before meals. This medication helps to empty your stomach so that you are not bloated. Too much fiber can make a big clump in a small intestine and cause a bowel obstruction. You should stick to a low fiber diet. 2. The right kidney is enlarged so I am going to refer you to a urologist to get checked out. 3. When Dr. Kamara looked in your stomach you had inflammation of the stomach lining and of the esophagus. I am sending you home on a medication to decrease the acid in your stomach and help with reflux/heartburn. the medicine is called Protonix and you will take it in the morning and before bed. Dr. Kamara did some biopsies of the stomach and the esophagus and I am going to have you follow up with him in 1 week to go over the results of the biopsies. Allergies/Adverse Reactions: Allergies Penicillins Adverse Reaction (Verified 10/25/18 20:16) Other Medications to take at Discharge Loperamide [Imodium] 2 mg PO DAILY 01/17/15 Mesalamine [Pentasa] 500 mg PO DAILY 12/20/17 albuterol sulfate 2.5 mg/3 mL (0.083 %) solution for nebulization 2.5 mg INHALATION Q4H PRN PRN #180 vial 06/23/18 albuterol sulfate HFA 90 mcg/actuation aerosol inhaler 2 puff INHALATION Q4H PRN g 06/23/18 Guaifenesin [Mucinex] 600 mg PO BID 10/25/18 Atorvastatin Calcium [Lipitor] 20 mg PO QDAY 10/26/18 Budesonide/Formoterol 160/4.5 [Symbicort 160/4.5 Mcg Inhaler (SP)] 1 puff INHALATION DAILY 10/26/18 Lisinopril [Prinivil] 5 mg PO QDAY 10/26/18 Tiotropium [place] [Spiriva 18 MCG] 1 cap INHALATION DAILY 10/26/18 Lisinopril [Zestril] 10 mg PO DAILY #30 tablet 10/30/18 Metoclopramide [Reglan] 5 mg PO TIDAC #90 tablet 10/30/18 Prednisone 10 mg PO UD #30 tab 10/30/18 The following prescriptions were given: Lisinopril [Zestril] 10 mg PO DAILY #30 tablet Metoclopramide [Reglan] 5 mg PO TIDAC #90 tablet Prednisone 10 mg PO UD #30 tab Primary Care Physician: Jalen Rodríguez Chi, MD [Primary Care Provider] - Please follow up with your Primary Care Physician in: 10-14 days Test Results: Test results from this visit will be discussed in further detail at your follow-up appointment, if applicable. Please Follow Up With: Rocky Kamara MD When: 1 week Please Follow Up With: Yoan Ochoa MD When: call the office to make an appointment to be evaluated for hydronephrosis Proposed Discharge Date: 10/30/18
--- NOTE | 2018-10-30 14:17 | PCM.DC.SUM ---
Discharge Date and Diagnosis - Problem List Patient Problems: Active and Suspected Problems (Last Reviewed 10/26/18 @ 09:22 by Dakota Gonzales MD) Hydronephrosis (Acute) Date of Admission: 10/25/18 Date of Discharge: 10/30/18 - Primary Discharge Diagnosis Active and Suspected Problems (Last Reviewed 10/26/18 @ 09:22 by Dakota Gonzales MD) Acute on chronic respiratory failure with hypoxemia and hypercapnia Acute exacerbation of COPD Small bowel obstruction Upper GI bleed secondary to gastritis and esophagitis Acute renal failure on chronic renal failure stage IV Atrial fibrillation with rapid ventricular response Gastritis Esophagitis Right hydronephrosis (Acute) - Secondary Discharge Diagnosis Chronic Problems (Last Reviewed 10/26/18 @ 09:22 by Dakota Gonzales MD) Stage 4 very severe COPD by GOLD classification (Chronic) Non-rheumatic tricuspid valve insufficiency (Chronic) mild 1+ regurg per echo 01/21/2015 done @ [facility] [place] Atherosclerosis of coronary artery of [place] heart without angina pectoris (Chronic) 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 Nicotine abuse (Chronic) - resolved....quit smoking Hypertension (Chronic) CKD (chronic kidney disease) stage 4, GFR 15-29 ml/min (Chronic) Following with Dr. Ari Reed Hospital Course and Treatment Imaging Results: Clinical Impression(s) from Imaging Studies Chest X-Ray 10/25/18 20:17 IMPRESSION: No acute cardiopulmonary abnormalities. Stable COPD with mild fibrosis. Electronically Signed: Taryn Cummins MD at 21:59 EST Tel Direct: [phone], Service support , Abdomen/Pelvis CT 10/27/18 05:37 IMPRESSION: Fluid filled markedly distended stomach and duodenum with the point of obstruction somewhere anterior to the aorta. 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 Bilateral calyceal calculi. A right-sided hydronephrosis without any demonstrable obstructing calculus right ureter Plate atelectatic changes in the right lung base Electronically Signed: Chuck Lyons MD at 6:29 EST Tel , Service support , KUB X-Ray 10/27/18 07:51 IMPRESSION: The NG tube is coiled in the esophagus and should be repositioned. Electronically Signed: Jason Rocha MD at 3:19 EST , Service support , Chest X-Ray 10/27/18 07:56 IMPRESSION: Nasogastric tube is coiled in the distal esophagus. This should be retracted and repositioned. No acute cardiopulmonary disease. Electronically Signed: Shanna Aguillon MD at 0:01 EST Tel , Service support , KUB X-Ray 10/27/18 07:56 IMPRESSION: The NG tube is in the stomach. Electronically Signed: Jason Rocha MD at 3:33 EST , Service support , Abdomen CT 10/27/18 08:06 IMPRESSION: The tip of the nasogastric tube is in the distal portion of the stomach. There is residual distention of the stomach with retained food particles. There is no evidence of a small bowel obstruction at this time. Small bilateral renal calculi. Electronically Signed: Ned Denny MD at 12:43 EST Tel [phone], Service support , KUB X-Ray 10/29/18 18:35 IMPRESSION: 1. Removal of enteric tube. No dilated loops of small bowel. Colonic gas confirmed. Electronically Signed: Geovanny Crockett MD at 18:59 EST , Service support , Dr. Rocky [facility] general surgery Dr. Webber and Dr. Velasquez[facility] neph[facility] Operations: None Procedures: EGD - Gastritis and esophagitis, normal duodenum and normal first part of the jejunum with no evidence of obstruction Summary of Care Provided: Initialization Date: 10/27/18 08:24 The pt is a 68 YO male with a PMH of CAD, Crohn's disease, multiple GI bleeds in the past, previous bowel resection, chronic respiratory failure with hypoxemia on 3 L of nasal O2 chronically, former smoking history, stage IV chronic renal failure and hypertension who presented to the emergency department at [facility] on 10/25/2018 complaining of increasing shortness of breath associated with a cough productive of green sputum over the preceding week. Pulse ox in the emergency room on 6 L was 85%. He was tachycardic, tachypneic and had accessory muscle use. He was placed on BiPAP in the emergency department and received steroids and aerosolized bronchodilators. CBC showed a white blood cell count of 7.0 with 77% neutrophils. Hemoglobin and platelets were within normal limits. An ABG done on BiPAP with a 30% FiO2 showed a pH of 7.37, PCO2 of 59 and a PO2 of 70. Serum bicarb was elevated at 33 and the BUN was 18 with a creatinine of 1.59. Lactic acid was 1.7. Troponin was less than 0.015. The chest x-ray showed marked flattening of the diaphragm with no infiltrates, pulmonary vascular congestion or pleural effusions. His last echocardiogram was in December 2014 showed a 60% ejection fraction with no regional wall motion abnormalities. His last visit with Dr. Jimenez was in May and he had no symptoms of angina or congestive heart failure. He was admitted to the hospital with a diagnosis of acute respiratory failure on chronic respiratory failure with hypoxemia and hypercapnia. He was treated for an acute exacerbation of COPD with aerosolized bronchodilators and high-dose intravenous steroids. A respiratory panel was negative. Sputum grew normal respiratory connie. No blood cultures were sent. Early in the morning on 10/27/2018 the patient began vomiting. The vomitus was coffee-ground in nature. He received a dose of 10 mg of Reglan. A non-contrasted CT scan of the patient's abdomen and pelvis was obtained and showed a fluid-filled markedly dilated stomach and duodenum with the point of obstruction somewhere anterior to the aorta. SMA syndrome was suspected however, he did not receive any IV contrast or oral contrast and this is only a suspicion. There was right-sided hydronephrosis with no demonstrable obstructing calculus. An NG tube was placed and drained dark brown/black gastric contents with some red blood in the NG tube. Hemoglobin in the a.m. on 10/27/2018 was 12.6 and BMP showed the CO2 to be up to 36. His creatinine had increased from 1.59 on 10/25/2018 to 2.16 on 10/27. Dr. Kamara was consulted for SBO. A CT was repeated with oral contrast only and the barium flowed through to the cecum with no evidence of a bowel obstruction. He had a EGD on 10/28/18 and this showed gastritis and nonsevere reflux esophagitis. The stomach and the esophagus were biopsied. The duodenum was normal and the portion of the jejunum that was examined was also normal. He was started on a liquid diet and this was advanced as tolerated to a low residue diet. She also diagnosed him with severe malnutrition and he was instructed on appropriate caloric and protein intact. He was seen by the windows technical specialist prior to discharge and educated on a low residue diet. He saw nephrology in the hospital and they felt the right side hydronephrosis may be contributing to worsening kidney function. They also felt he needed hydrated and more fluids and an IV was started. A bladder scan did not reveal a problem with urine retention. The creatinine on the day of DC was 1.33 and this is within his baseline. He was discharged home on 10/30/18 and will follow up with Dr. Rodríguez in 1-2 weeks. He will follow up with Dr. Kamara in 1 week to discuss the results of the biopsies. He was referred to Dr. Ochoa to be evaluated for urinary tract obstruction with hydronephrosis on the right. He was given prescriptions for a tapering dose of Prednisone, Protonix, Reglan and a higher dose of Lisinopril to better control the blood pressure. He did have AF with RVR while in the hospital but converted to NSR. He was not started on anticoagulation due to UGI bleed and the AF is presumed to be due to stress, steroids and ELYTE imbalance. General: Alert, oriented ?3, cooperative, yesterday but he does not recall the sequence of events yesterday and he tells me that he vomited brown stuff . At home he consumes a soft diet because he has no teeth. He eats salads and whole wheat bread. He is hard of hearing Neck: Supple, trachea midline, no enlarged cervical nodes, no enlarged supraclavicular nodes Lungs: Diminished throughout, symmetric chest expansion, no rales, no wheezes, no rhonchi, no conversational dyspnea, no accessory muscle use Heart: Regular rhythm, tachycardic, normal S1, normal S2, no murmur, no gallop, no rub Abdomen: Soft, NT, mild distention with increased tympany, bowel sounds present Extremities: No clubbing, no peripheral edema, no cyanosis This note was generated with [employer] dictation software. It may contain incorrect words, spelling, and punctuation that were not noted in checking the note before signing. Patient Problems: Active and Suspected Problems (Last Reviewed 10/26/18 @ 09:22 by Dakota Gonzales MD) Hydronephrosis (Acute) - Physical Exam Vital Signs Temp Pulse Resp BP Pulse Ox 97.8 F 84 21 H 126/70 H 97 10/30/18 09:07 10/30/18 14:08 10/30/18 14:08 10/30/18 09:07 10/30/18 09:07 Oxygen Flow Rate (L/min) 2 Oxygen Delivery Method Nasal Cannula Weight: 90 lb 13.287 oz Body Mass Index (BMI) 15.0 Intake and Output for Last 24 Hours 10/28/18 10/29/18 10/30/18 23:59 23:59 23:59 Intake Total 1797.2 / 1797.2 3500 / 3500 915 / 915 Output Total 650 / 650 725 / 725 869 / 869 Balance 1147.2 / 1147.2 2775 / 2775 46 / 46 Microbiology Past 72 Hours 10/26/18 15:25 Gram Stain - Final Sputum, Expectorated/Coughed Respiratory Culture - Preliminary Appears to be normal respiratory connie. Further studies to follow. Laboratory Tests Past 24 Hrs 10/30/18 10/30/18 06:15 06:15 WBC 5.6 RBC 3.27 L Hgb 9.4 L Hct 30.4 L MCV 93.0 MCH 28.7 MCHC 30.9 L RDW 12.4 RDW Differential 40.6 Plt Count 150 MPV 9.6 Sodium 142 Potassium 3.9 Chloride 106 Carbon Dioxide 29.0 Anion Gap 7 BUN 35 H Creatinine 1.33 H Estim Creat Clear Calc 30.12 Est GFR (MDRD) Af Amer 68 Est GFR (MDRD) Non-Af 56 L BUN/Creatinine Ratio 26.3 H Glucose 134 H Calcium 8.1 L Discharge Activity: - - Avoid exposure to any strong smells such as bleach, cleaning products, strong colognes or perfumes, paint fumes and smoke of any kind. Avoid sudden exposure to cold air because this can cause bronchospasm. You may want to cover your mouth when you go outside in the winter. Avoid exposure to anyone who is sick with a cough or sore throat. Call your doctor if you observe: Fever of 101 or Higher, Shortness of breath, Dizziness, Fainting spells, Swelling in the ankles, Chest pain, Calf discomfort, - - Recurrent nausea/vomiting/bloating Home Medications: Medications to take at Discharge Loperamide [Imodium] 2 mg PO DAILY 01/17/15 Mesalamine [Pentasa] 500 mg PO DAILY 12/20/17 albuterol sulfate 2.5 mg/3 mL (0.083 %) solution for nebulization 2.5 mg INHALATION Q4H PRN PRN #180 vial 06/23/18 albuterol sulfate HFA 90 mcg/actuation aerosol inhaler 2 puff INHALATION Q4H PRN g 06/23/18 Guaifenesin [Mucinex] 600 mg PO BID 10/25/18 Atorvastatin Calcium [Lipitor] 20 mg PO QDAY 10/26/18 Budesonide/Formoterol 160/4.5 [Symbicort 160/4.5 Mcg Inhaler (SP)] 1 puff INHALATION DAILY 10/26/18 Lisinopril [Prinivil] 5 mg PO QDAY 10/26/18 Tiotropium [place] [Spiriva 18 MCG] 1 cap INHALATION DAILY 10/26/18 Lisinopril [Zestril] 10 mg PO DAILY #30 tablet 10/30/18 Metoclopramide [Reglan] 5 mg PO TIDAC #90 tablet 10/30/18 Pantoprazole Sodium [Protonix] 20 mg PO BID #60 tablet 10/30/18 Prednisone 10 mg PO UD #30 tab 10/30/18 Following Prescrptions Were Given to Patient: Lisinopril [Zestril] 10 mg PO DAILY #30 tablet Metoclopramide [Reglan] 5 mg PO TIDAC #90 tablet Prednisone 10 mg PO UD #30 tab Pantoprazole Sodium [Protonix] 20 mg PO BID #60 tablet Primary Care Physician: Jalen Rodríguez Chi, MD [Primary Care Provider] - Please follow up with your Primary Care Physician in: 10-14 days Please Follow Up With: Rocky Kamara MD When: 1 week Please Follow Up With: Yoan Ochoa MD When: call the office to make an appointment to be evaluated for hydronephrosis Patient Instructions: Low-Residue Diet Disposition: Home Minutes spent on discharge:: 40 Patient Condition:: Stable Medical Necessity - Tobacco Use Smoking Status: Former smoker - He reports quitting smoking about a month ago. Meaningful Use Info Meaningful Use Diagnoses (Choose all that apply): None applicable Code Visit Inpatient E&M: 53640 Disch Hosp
--- NOTE | 2018-10-30 14:21 | DS.PCM_ITS ---
Discharge Date and Diagnosis - Problem List Patient Problems: Active and Suspected Problems (Last Reviewed 10/26/18 @ 09:22 by Dakota Gonzales MD) Hydronephrosis (Acute) Date of Admission: 10/25/18 Date of Discharge: 10/30/18 - Primary Discharge Diagnosis Active and Suspected Problems (Last Reviewed 10/26/18 @ 09:22 by Dakota Gonzales MD) Acute on chronic respiratory failure with hypoxemia and hypercapnia Acute exacerbation of COPD Small bowel obstruction Upper GI bleed secondary to gastritis and esophagitis Acute renal failure on chronic renal failure stage IV Atrial fibrillation with rapid ventricular response Gastritis Esophagitis Right hydronephrosis (Acute) - Secondary Discharge Diagnosis Chronic Problems (Last Reviewed 10/26/18 @ 09:22 by Dakota Gonzales MD) Stage 4 very severe COPD by GOLD classification (Chronic) Non-rheumatic tricuspid valve insufficiency (Chronic) mild 1+ regurg per echo 01/21/2015 done @ [facility] Atherosclerosis of coronary artery of [place] heart without angina pectoris (Chronic) 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 Nicotine abuse (Chronic) - resolved....quit smoking Hypertension (Chronic) CKD (chronic kidney disease) stage 4, GFR 15-29 ml/min (Chronic) Following with Dr. Ari Reed Hospital Course and Treatment Imaging Results: Clinical Impression(s) from Imaging Studies Chest X-Ray 10/25/18 20:17 IMPRESSION: No acute cardiopulmonary abnormalities. Stable COPD with mild fibrosis. Electronically Signed: Taryn Cummins MD at 21:59 EST Tel Direct: [phone], Service support , Abdomen/Pelvis CT 10/27/18 05:37 IMPRESSION: Fluid filled markedly distended stomach and duodenum with the point of obstruction somewhere anterior to the aorta. 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 Bilateral calyceal calculi. A right-sided hydronephrosis without any demonstrable obstructing calculus right ureter Plate atelectatic changes in the right lung base Electronically Signed: Chuck Lyons MD at 6:29 EST Tel , Service support , KUB X-Ray 10/27/18 07:51 IMPRESSION: The NG tube is coiled in the esophagus and should be repositioned. Electronically Signed: Jason Rocha MD at 3:19 EST , Service support , Chest X-Ray 10/27/18 07:56 IMPRESSION: Nasogastric tube is coiled in the distal esophagus. This should be retracted and repositioned. No acute cardiopulmonary disease. Electronically Signed: Shanna Augillon MD at 0:01 EST Tel , Service support , KUB X-Ray 10/27/18 07:56 IMPRESSION: The NG tube is in the stomach. Electronically Signed: Jason Rocha MD at 3:33 EST , Service support , Abdomen CT 10/27/18 08:06 IMPRESSION: The tip of the nasogastric tube is in the distal portion of the stomach. There is residual distention of the stomach with retained food particles. There is no evidence of a small bowel obstruction at this time. Small bilateral renal calculi. Electronically Signed: Ned Denny MD at 12:43 EST Tel [phone], Service support , KUB X-Ray 10/29/18 18:35 IMPRESSION: 1. Removal of enteric tube. No dilated loops of small bowel. Colonic gas confirmed. Electronically Signed: Geovanny Crockett MD at 18:59 EST , Service support , Dr. Rocky Kamara-[facility] general surgery Dr. Webber and Dr. Velasquez-[place] nephrology Operations: None Procedures: EGD - Gastritis and esophagitis, normal duodenum and normal first part of the jejunum with no evidence of obstruction Summary of Care Provided: Initialization Date: 10/27/18 08:24 The pt is a 68 YO male with a PMH of CAD, Crohn's disease, multiple GI bleeds in the past, previous bowel resection, chronic respiratory failure with hypoxemia on 3 L of nasal O2 chronically, former smoking history, stage IV chronic renal failure and hypertension who presented to the emergency department at [facility] on 10/25/2018 complaining of increasing shortness of breath associated with a cough productive of green sputum over the preceding week. Pulse ox in the emergency room on 6 L was 85%. He was tachycardic, tachypneic and had accessory muscle use. He was placed on BiPAP in the emergency department and received steroids and aerosolized bronchodilators. CBC showed a white blood cell count of 7.0 with 77% neutrophils. Hemoglobin and platelets were within normal limits. An ABG done on BiPAP with a 30% FiO2 showed a pH of 7.37, PCO2 of 59 and a PO2 of 70. Serum bicarb was elevated at 33 and the BUN was 18 with a creatinine of 1.59. Lactic acid was 1.7. Troponin was less than 0.015. The chest x-ray showed marked flattening of the diaphragm with no infiltrates, pulmonary vascular congestion or pleural effusions. His last echocardiogram was in December 2014 showed a 60% ejection fraction with no regional wall motion abnormalities. His last visit with Dr. Jimenez was in May and he had no symptoms of angina or congestive heart failure. He was admitted to the hospital with a diagnosis of acute respiratory failure on chronic respiratory failure with hypoxemia and hypercapnia. He was treated for an acute exacerbation of COPD with aerosolized bronchodilators and high-dose intravenous steroids. A respiratory panel was negative. Sputum grew normal respiratory connie. No blood cultures were sent. Early in the morning on 10/27/2018 the patient began vomiting. The vomitus was coffee-ground in nature. He received a dose of 10 mg of Reglan. A non- contrasted CT scan of the patient's abdomen and pelvis was obtained and showed a fluid-filled markedly dilated stomach and duodenum with the point of obstruction somewhere anterior to the aorta. SMA syndrome was suspected however, he did not receive any IV contrast or oral contrast and this is only a suspicion. There was right-sided hydronephrosis with no demonstrable obstructing calculus. An NG tube was placed and drained dark brown/black gastric contents with some red blood in the NG tube. Hemoglobin in the a.m. on 10/27/2018 was 12.6 and BMP showed the CO2 to be up to 36. His creatinine had increased from 1.59 on 10/25/2018 to 2.16 on 10/27. Dr. Kamara was consulted for SBO. A CT was repeated with oral contrast only and the barium flowed through to the cecum with no evidence of a bowel obstruction. He had a EGD on 10/28/18 and this showed gastritis and nonsevere reflux esophagitis. The stomach and the esophagus were biopsied. The duodenum was normal and the portion of the jejunum that was examined was also normal. He was started on a liquid diet and this was advanced as tolerated to a low residue diet. She also diagnosed him with severe malnutrition and he was instructed on appropriate caloric and protein intact. He was seen by the bingo manager prior to discharge and educated on a low residue diet. He saw nephrology in the hospital and they felt the right side hydronephrosis may be contributing to worsening kidney function. They also felt he needed hydrated and more fluids and an IV was started. A bladder scan did not reveal a problem with urine retention. The creatinine on the day of DC was 1.33 and this is within his baseline. He was discharged home on 10/30/18 and will follow up with Dr. Rodríguez in 1-2 weeks. He will follow up with Dr. Kamara in 1 week to discuss the results of the biopsies. He was referred to Dr. Ochoa to be evaluated for urinary tract obstruction with hydronephrosis on the right. He was given prescriptions for a tapering dose of Prednisone, Protonix, Reglan and a higher dose of Lisinopril to better control the blood pressure. He did have AF with RVR while in the hospital but converted to NSR. He was not started on anticoagulation due to UGI bleed and the AF is presumed to be due to stress, steroids and ELYTE imbalance. General: Alert, oriented ?3, cooperative, yesterday but he does not recall the sequence of events yesterday and he tells me that he vomited brown stuff . At home he consumes a soft diet because he has no teeth. He eats salads and whole wheat bread. He is hard of hearing Neck: Supple, trachea midline, no enlarged cervical nodes, no enlarged supraclavicular nodes Lungs: Diminished throughout, symmetric chest expansion, no rales, no wheezes, no rhonchi, no conversational dyspnea, no accessory muscle use Heart: Regular rhythm, tachycardic, normal S1, normal S2, no murmur, no gallop, no rub Abdomen: Soft, NT, mild distention with increased tympany, bowel sounds present Extremities: No clubbing, no peripheral edema, no cyanosis This note was generated with Precipio dictation software. It may contain incorrect words, spelling, and punctuation that were not noted in checking the note before signing. Patient Problems: Active and Suspected Problems (Last Reviewed 10/26/18 @ 09:22 by Dakota Gonzales MD) Hydronephrosis (Acute) - Physical Exam Vital Signs Temp Pulse Resp BP Pulse Ox 97.8 F 84 21 H 126/70 H 97 10/30/18 09:07 10/30/18 14:08 10/30/18 14:08 10/30/18 09:07 10/30/18 09:07 Oxygen Flow Rate (L/min) 2 Oxygen Delivery Method Nasal Cannula Weight: 90 lb 13.287 oz Body Mass Index (BMI) 15.0 Intake and Output for Last 24 Hours 10/28/18 10/29/18 10/30/18 23:59 23:59 23:59 Intake Total 1797.2 / 1797.2 3500 / 3500 915 / 915 Output Total 650 / 650 725 / 725 869 / 869 Balance 1147.2 / 1147.2 2775 / 2775 46 / 46 Microbiology Past 72 Hours 10/26/18 15:25 Gram Stain - Final Sputum, Expectorated/Coughed Respiratory Culture - Preliminary Appears to be normal respiratory connie. Further studies to follow. Laboratory Tests Past 24 Hrs 10/30/18 10/30/18 06:15 06:15 WBC 5.6 RBC 3.27 L Hgb 9.4 L Hct 30.4 L MCV 93.0 MCH 28.7 MCHC 30.9 L RDW 12.4 RDW Differential 40.6 Plt Count 150 MPV 9.6 Sodium 142 Potassium 3.9 Chloride 106 Carbon Dioxide 29.0 Anion Gap 7 BUN 35 H Creatinine 1.33 H Estim Creat Clear Calc 30.12 Est GFR (MDRD) Af Amer 68 Est GFR (MDRD) Non-Af 56 L BUN/Creatinine Ratio 26.3 H Glucose 134 H Calcium 8.1 L Discharge Activity: - - Avoid exposure to any strong smells such as bleach, cleaning products, strong colognes or perfumes, paint fumes and smoke of any kind. Avoid sudden exposure to cold air because this can cause bronchospasm. You may want to cover your mouth when you go outside in the winter. Avoid exposure to anyone who is sick with a cough or sore throat. Call your doctor if you observe: Fever of 101 or Higher, Shortness of breath, Dizziness, Fainting spells, Swelling in the ankles, Chest pain, Calf discomfort, - - Recurrent nausea/vomiting/bloating Home Medications: Medications to take at Discharge Loperamide [Imodium] 2 mg PO DAILY 01/17/15 Mesalamine [Pentasa] 500 mg PO DAILY 12/20/17 albuterol sulfate 2.5 mg/3 mL (0.083 %) solution for nebulization 2.5 mg INHALATION Q4H PRN PRN #180 vial 06/23/18 albuterol sulfate HFA 90 mcg/actuation aerosol inhaler 2 puff INHALATION Q4H PRN g 06/23/18 Guaifenesin [Mucinex] 600 mg PO BID 10/25/18 Atorvastatin Calcium [Lipitor] 20 mg PO QDAY 10/26/18 Budesonide/Formoterol 160/4.5 [Symbicort 160/4.5 Mcg Inhaler (SP)] 1 puff INHALATION DAILY 10/26/18 Lisinopril [Prinivil] 5 mg PO QDAY 10/26/18 Tiotropium [place] [Spiriva 18 MCG] 1 cap INHALATION DAILY 10/26/18 Lisinopril [Zestril] 10 mg PO DAILY #30 tablet 10/30/18 Metoclopramide [Reglan] 5 mg PO TIDAC #90 tablet 10/30/18 Pantoprazole Sodium [Protonix] 20 mg PO BID #60 tablet 10/30/18 Prednisone 10 mg PO UD #30 tab 10/30/18 Following Prescrptions Were Given to Patient: Lisinopril [Zestril] 10 mg PO DAILY #30 tablet Metoclopramide [Reglan] 5 mg PO TIDAC #90 tablet Prednisone 10 mg PO UD #30 tab Pantoprazole Sodium [Protonix] 20 mg PO BID #60 tablet Primary Care Physician: Jalen Rodríguez Chi, MD [Primary Care Provider] - Please follow up with your Primary Care Physician in: 10-14 days Please Follow Up With: Rocky Kamara MD When: 1 week Please Follow Up With: Yoan Ochoa MD When: call the office to make an appointment to be evaluated for hydronephrosis Patient Instructions: Low-Residue Diet Disposition: Home Minutes spent on discharge:: 40 Patient Condition:: Stable Medical Necessity - Tobacco Use Smoking Status: Former smoker - He reports quitting smoking about a month ago. Meaningful Use Info Meaningful Use Diagnoses (Choose all that apply): None applicable Code Visit Inpatient E&M: 64161 Disch Hosp
--- NOTE | 2018-10-31 16:28 | CASEMGMT ---
NORMA BOCANEGRA Discharge F/U Phone Call LACE: 13 Strata: 4 Discharge date: 10/30/18 Call date: 10/31/18 Call time: [id number] Admission dx: COPD Pt states 'not too bad' since discharge and states has been 'taking it easy.' Pt states no questions regarding discharge instructions or medications at this time. Pt states will schedule f/u appt's. Pt states no suggestions for [facility] at this time. Pt states no further questions/concerns/needs at this time. [place] NORMA BOCANEGRA
== END 2018-10-30 15:57 | disposition home or self-care (01) | DRG 189 ==
LOC: ED 23:52 → PCU 10-26 00:19
PROVIDERS: Internal Medicine Nephrology; Physician Assistant; Surgery; Admitting Provider Hospitalist; Emergency Provider Emergency Medicine; Family Provider Family Medicine Geriatric Medicine; PCP Family Medicine Geriatric Medicine; Visit Provider Internal Medicine
PROC: 0DJ08ZZ Inspection of Upper Intestinal Tract, Via Natural or Artificial Opening Endoscopic (ICD-10-PCS; CPT 43235; principal; 2018-10-28 10:55)
DX: J96.01 Acute respiratory failure with hypoxia (principal); K29.71 Gastritis, unspecified, with bleeding; E43 Unspecified severe protein-calorie malnutrition; J44.1 Chronic obstructive pulmonary disease with (acute) exacerbation; K56.609 Unspecified intestinal obstruction, unspecified as to partial versus complete obstruction; N17.9 Acute kidney failure, unspecified; Z68.1 Body mass index [BMI] 19.9 or less, adult; N18.4 Chronic kidney disease, stage 4 (severe); N13.30 Unspecified hydronephrosis; K50.90 Crohn's disease, unspecified, without complications; J96.22 Acute and chronic respiratory failure with hypercapnia; J96.21 Acute and chronic respiratory failure with hypoxia; I16.0 Hypertensive urgency; K20.9 Esophagitis, unspecified; K22.8 Other specified diseases of esophagus; I48.91 Unspecified atrial fibrillation; I12.9 Hypertensive chronic kidney disease with stage 1 through stage 4 chronic kidney disease, or unspecified chronic kidney disease; I25.10 Atherosclerotic heart disease of native coronary artery without angina pectoris; I36.1 Nonrheumatic tricuspid (valve) insufficiency; Z99.81 Dependence on supplemental oxygen; Z87.891 Personal history of nicotine dependence; I25.2 Old myocardial infarction
CPT/HCPCS: 36415; 36600; 71045; 74018; 74176; 80048; 80076; 81001; 82570; 82803; 83036; 83605; 83735; 84100; 84300; 84484; 85014; 85018; 85025; 85027; 86850; 86900; 87070; 87205; 87633; 88305; 88312; 88342; 93005; 94002; 94640; 94667; 97110; 97116; 97162; 97166; 97530; 97802; 99251; 99284; J7030; J7040; A4216; G0463; J2405

== ENCOUNTER → 2018-11-09 17:25 | Outpatient (CLI) | payer MEDICARE, MEDICAID, SELFPAY ==
[2018-10-26 01:06] VITALS: BMI 15.0
[2018-11-09 17:39] LABS: Absolute Lymphocyte Count 0.91 X10^3/ul (0.83-4.51); Absolute Neutrophil Count 7.9 X10^3/uL (2.0-7.7); Eosinophil# 0.02 X10^3/uL; Eosinophils% 0.2 % (0-5); Hematocrit 36.2 % (40-54); Hemoglobin 10.8 g/dl (13.0-16.5); Lymphocyte # 0.91 X10^3/ul (4.0); Mean Corp Hgb Conc 29.8 g/gl (32-36); Mean Corpuscular Hgb 28.4 pg (27.0-32.0); Mean Corpuscular Volume 95.3 fL (80-94); Mean Platelet Vol. 9.2 fl (6.2-12.0); Monocyte# 0.24 X10^3/uL; Monocyte% 2.6 % (0-10); Neutrophil # 7.93 X10^3/uL (2.7-7.7); Neutrophil % 87.1 % (47-70); Platelet Count 197 K/mm3 (150-450); RBC Distribution Width CV 13.5 % (11.6-14.6); RBC Distribution Width SD 46.4 fl (35.1-43.9); White Blood Count 9.1 K/mm3 (4.4-11.0)
[2018-11-09 17:47] LABS: POSITIVE COUNT NO; POSITIVE DIFFERENTIAL NO; POSITIVE MORPHOLOGY NO
[2018-11-09 18:21] LABS: Anion Gap 5 (5-15); BUN 21 mg/dL (7-18); BUN/Creat Ratio 14.4 RATIO (10-20); Calcium,Total 8.1 mg/dL (8.5-10.1); Chloride 102 mmol/L (98-107); Creatinine, Serum 1.46 mg/dL (0.70-1.30); EST Glomerular Filtration Rate 51 mL/min (>60); Est Glom Filt Rate - Afr Amer 61 mL/min (>60); Glucose 129 mg/dL (74-106); Potassium 3.4 mmol/L (3.5-5.1); Sodium Level 145 mmol/L (136-145)
--- OUTSIDE RECORDS SUMMARY | 2019-01-14 16:42 | XMS RPT_ITS ---
:1950 Author Organization OHIP Support Name Relationship Address Phone R Unavailable Unavailable Unavailable DAKOTA DELEON Unavailable [address] + [place] [address] R Unavailable Unavailable Unavailable DAKOTA DELEON Unavailable [address] + [place] [address] R Unavailable Unavailable Unavailable DAKOTA DELEON Unavailable [address] + [place] [address] R Unavailable Unavailable Unavailable DAKOTA DELEON Unavailable [address] + [place] [address] R Unavailable Unavailable Unavailable DAKOTA DELEON Unavailable [address] + [place] [address] R Unavailable Unavailable Unavailable DAKOTA DELEON Unavailable [address] + [place] [address] R Unavailable Unavailable Unavailable DAKOTA DELEON Unavailable [address] + [place] [address] R Unavailable Unavailable Unavailable DAKOTA DELEON Unavailable [address] + [place] [address] R Unavailable Unavailable Unavailable DAKOTA DELEON Unavailable [address] + [place] [address] R Unavailable Unavailable Unavailable DAKOTA DELEON Unavailable [address] + [place] [address] R Unavailable Unavailable Unavailable DAKOTA DELEON Unavailable [address] + [place] [address] R Unavailable Unavailable Unavailable DAKOTA DELEON Unavailable Unavailable + R Unavailable Unavailable Unavailable DAKOTA DELEON Unavailable Unavailable + R Unavailable Unavailable Unavailable R Unavailable Unavailable Unavailable R Unavailable Unavailable Unavailable R Unavailable Unavailable Unavailable R Unavailable Unavailable Unavailable HEIKE OCHOA Unavailable [address] + [place] [address] R Unavailable Unavailable Unavailable OCHOA, HEIKE Unavailable [address] + [place] [address] R Unavailable Unavailable Unavailable OCHOA, HEIKE Unavailable [address] + [place] [address] R Unavailable Unavailable Unavailable OCHOA, HEIKE Unavailable [address] + [place] [address] R Unavailable Unavailable Unavailable OCHOA, HEIKE Unavailable [address] + [place] [address] R Unavailable Unavailable Unavailable OCHOA, HEIKE Unavailable [address] + [place] [address] R Unavailable Unavailable Unavailable OCHOA, HEIKE Unavailable [address] + [place] [address] R Unavailable Unavailable Unavailable OCHOA, HEIKE Unavailable [address] + [place] [address] R Unavailable Unavailable Unavailable OCHOA, HEIKE Unavailable [address] + [place] [address] R Unavailable Unavailable Unavailable OCHOA, HEIKE Unavailable [address] + [place] [address] R Unavailable Unavailable Unavailable OCHOA, HEIKE Unavailable [address] + [place] [address] R Unavailable Unavailable Unavailable OCHOA, HEIKE Unavailable [address] + [place] [address] R Unavailable Unavailable Unavailable R Unavailable Unavailable Unavailable BAXTON, MARCIO Unavailable [address] [facility] + [place] [address] OCHOA, HEIKE Unavailable [address] + [place] [address] R Unavailable Unavailable Unavailable BAXTON, MARCIO Unavailable [address] [facility] + [place] [address] OCHOA, HEIKE Unavailable [address] + [place] [address] R Unavailable Unavailable Unavailable Care Team Providers Name Role Phone DALIA SANTOS Admitting Unavailable AMY CORRALES Attending Unavailable CHRISTOPH CAPPS Consulting Unavailable Marcos, Jalen Chi Attending Unavailable Marcos, Jalen Chi Referring Unavailable Marcos, Jalen Chi Primary Care Unavailable DeFinis, Harumi Attending Unavailable Chrissy, Kam Admitting Unavailable Jose D Wolff D.O. Attending Unavailable Marcos, Jalen Chi Primary Care Unavailable Jose D Wolff D.O. Consulting Unavailable Dalia Roberson Consulting Unavailable Chrissy, Kam Admitting Unavailable Jose D Wolff D.O. Attending Unavailable Marcos, Jalen Chi Primary Care Unavailable Jose D Wolff D.O. Consulting Unavailable Dalia Roberson Consulting Unavailable Aj Jimenez Attending Unavailable Marcos, Jalen Chi Referring Unavailable Marcos, Jalen Chi Primary Care Unavailable Marcos, Jalen Chi Attending Unavailable Marcos, Jalen Chi Primary Care Unavailable Salas Ocampo Attending Unavailable Delma Frey Referring Unavailable Yemi Leal Attending Unavailable Prah, Dakota Referring Unavailable Marcos, Jalen Chi Primary Care Unavailable Channing Ruiz Attending Unavailable Marcos, Jalen Chi Attending Unavailable Marcos, Jalen Chi Primary Care Unavailable Stefani Little Attending Unavailable Marcos, Jalen Chi Attending Unavailable Marcos, Jalen Chi Primary Care Unavailable Chrissy, Kam Admitting Unavailable Dalia Roberson Attending Unavailable Marcos, Jalen Chi Primary Care Unavailable Jose D Wolff D.O. Consulting Unavailable Dalia Roberson Consulting Unavailable Chrissy, Kam Admitting Unavailable Dalia Roberson Attending Unavailable Marcos, Jalen Chi Primary Care Unavailable Jose D Wolff D.O. Consulting Unavailable Dalia Roberson Consulting Unavailable Chrissy, Kam Admitting Unavailable Marcos, Jalen Chi Primary Care Unavailable Chrissy, Kam Consulting Unavailable Paintsil, Orange Attending Unavailable Marcos, Jalen Chi Primary Care Unavailable Chrissy, Kam Admitting Unavailable Jose D Wolff D.O. Consulting Unavailable Dalia Roberson Attending Unavailable Aj Jimenez Attending Unavailable Aj Jimenez Referring Unavailable Primay Care Physicia, No Primary Care Unavailable Aj Jimenez Attending Unavailable Marcos, Jalen Chi Referring Unavailable Marcos, Jalen Chi Primary Care Unavailable Marjorie Cárdenas Attending Unavailable Marcos, Jalen Chi Attending Unavailable Marcos, Jalen Chi Referring Unavailable Marcos, Jalen Chi Primary Care Unavailable Dakota Gonzales Admitting Unavailable Kenneth Sanchez Attending Unavailable Marcos, Jalen Chi Primary Care Unavailable Kay Kamara Consulting Unavailable Lindsey Velasquez Consulting Unavailable Yelena Valdez Consulting Unavailable Dakota Gonzales Admitting Unavailable Yelena Valdez Attending Unavailable Marcos, Jalen Chi Primary Care [...] Yelena Attending Unavailable Agyepong, Dakota Admitting Unavailable Agyepong, Dakota Attending Unavailable Marcos, Jalen Chi Primary Care Unavailable Sementi, Yelena Consulting Unavailable Marcos, Jalen Chi Primary Care Unavailable Agyepong, Dakota Admitting Unavailable Sementi, Yelena Attending Unavailable Anh, Kay Consulting Unavailable Bakhous, Aziz Consulting Unavailable Delma Frey Attending Unavailable Delma Frey Referring Unavailable Amrcos, Jalen Chi Primary Care Unavailable Salas Ocampo Attending Unavailable Marcos, Jalen Chi Referring Unavailable Delma Frey Attending Unavailable Marcos, Jalen Chi Referring Unavailable Chrissy, Kam Admitting Unavailable Jose D Wolff D.O. Attending Unavailable Marcos, Jalen Chi Primary Care Unavailable Jose D Wolff D.O. Consulting Unavailable Dalia Roberson Consulting Unavailable EVELYN GILLESPIE (YONATAN) Attending Unavailable LILIA CADETA Referring Unavailable Jeaneth SANTOS Admitting Unavailable IMCA Primary Care Unavailable Jeaneth REYES Attending Unavailable Jeaneth LEE Consulting Unavailable Jeaneth CUMMINGS Consulting Unavailable JEFRY, CHRISTOPH Consulting Unavailable PROBLEMS PROBLEMS DATE TYPE CONDITION / CODE ATTENDING STATUS SOURCE Unknown R94.31 - Abnormal [place], Active [place] 9 electrocardiogram [facility] [ECG] [EKG] / Hospital R94.31(ICD-10) Repository Unknown J96.01 - Acute Daniel, Kenneth Active [place] 9 respiratory failure Community with hypoxia / Hospital J96.01(ICD-10) Repository Unknown J44.9 - Chronic Salas Ocampo Active [place] 8 obstructive pulmonary Community disease, unspecified / Hospital J44.9(ICD-10) Repository Active Vomiting, unspecified AMY CORRALES Active [place] [facility] / R11.10(ICD-10) Clinic Other [place] Repository Admitting Unknown / UNK(Unknown) Jeaneth REYES Active [facility] 8 diagnosis [facility] Repository Unknown I10 - Essential Marcos, Jalen Chi Active [place] [facility] (primary) hypertension Community / I10(ICD-10) Hospital Repository Unknown E11.9 - Type 2 Marcos, Jalen Chi Active [place] 8 diabetes mellitus Community without complications Hospital / E11.9(ICD-10) Repository Unknown E55.9 - Vitamin D Marcos, Jalen Chi Active [place] 8 deficiency, Community unspecified / Hospital E55.9(ICD-10) Repository Unknown Z23 - Encounter for Tk, Active [place] 8 immunization / [facility] Z23(ICD-10) Hospital Repository Unknown J43.1 - Panlobular Frey, Active [place] 8 emphysema / [facility] J43.1(ICD-10) Hospital Repository Unknown N18.4 - Chronic kidney Aj Jimenez Active [place] 8 disease, stage 4 Community (severe) / Hospital N18.4(ICD-10) Repository Unknown J44.1 - Chronic Aj Jimenez Active [place] 8 obstructive pulmonary Community disease with (acute) Hospital exacerbation / Repository J44.1(ICD-10) Unknown I25.10 - Aj Jimenez Active [place] 8 Atherosclerotic heart Community disease of [facility] coronary artery Repository without angina pectoris / I25.10(ICD-10) Unknown 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 criteria. Please note revised GLUCOSE reference range effective 2017. LAB L501.1000 7-18 mg/dL High BUN 39 LAB L501.1100 0.70-1.30 mg/dL High CREAT,SERUM 1.69 Result Comment: The validity of the calculated GFR AND GFRAA in patients over 70 years has not been determined. Clinical correlation is essential. LAB L501.1110 >60 mL/min Low EST GFR 43 Result Comment: Non- GFR Calc LAB L501.1115 >60 mL/min Low EST GFR - AA 52 Result Comment: GFR Calc LAB L501.1300 10-20 RATIO High BUN/CRE 23.1 LAB L501.2200 8.5-10.1 mg/dL CA Normal 8.8 LAB L501.5300 136-145 mmol/L NA Normal 143 LAB L501.5600 3.5-5.1 mmol/L K Normal 4.2 LAB L501.5900 98-107 mmol/L Low CL 95 LAB L501.6100 21.0-32.0 mmol/L High CO2 42.0 LAB L501.6200 5-15 Normal GAP 6 Performed By: #### L500.2500 #### [facility] Laboratory [facility] [address] [place], [place], [address] CBC W/DIFF, AUTOMATED Collected: 11/16/2018 Status: F Source: [place] 10:27 AM [facility] REPOSITORY TYPE CODE TESTS RESULT OUT OF RANGE REFERENCE UNITS LAB L100.1000 4.4-11.0 K/mm3 Normal WBC 6.7 LAB L100.1200 4.6-6.2 M/mm3 Low RBC 4.10 LAB L100.1300 13.0-16.5 g/dl Low HGB 11.7 LAB L100.1400 40-54 % Low HCT 39.2 LAB L100.1500 80-94 fL High MCV 95.6 LAB L100.1600 27.0-32.0 pg Normal MCH 28.5 LAB L100.1700 32-36 g/gl Low MCHC 29.8 LAB L100.1810 11.6-14.6 % Normal RDW CV 14.2 LAB L100.1820 35.1-43.9 fl High RDW SD 47.7 LAB L100.1900 150-450 K/mm3 Low PLT 140 LAB L100.2000 6.2-12.0 fl Normal MPV 10.7 LAB L100.2100 47-70 % High NEUT% 92.3 LAB L100.2200 19-41 % Low LY% 4.2 LAB L100.2300 0-10 % Normal MONO% 3.0 LAB L100.2400 0-5 % Normal EO% 0.3 LAB L100.2500 0-1 % Normal BASO% 0.0 LAB L100.2550 0.0-0.9 % Normal IM GRAN % 0.200 Result Comment: IG% - Immature Granulocytes (promyelocytes, myelocytes and metamyelocytes) > 1% indicates that a LEFT SHIFT is Present. LAB L100.2620 2.0-7.7 X10 3/uL Normal Absolute Neut 6.2 LAB L100.2720 0.83-4.51 X10 3/ul Low Absolute Lymph 0.28 LAB L100.4500 Normal SMEAR COMMENT COMMENT Result Comment: SLIDE SCANNED - LYMPHOPENIA NOTED. Performed By: #### L100.0100 #### [facility] Laboratory [address] [place], [address] ECHOCARDIOGRAM COMPLETE Observed: 11/16/2018 Status: F Source: [place] 9:21 AM [facility] REPOSITORY [facility] Cardiovascular Services [address] [place] [address] Echo Complete 11/15/18 1358 MR#: [id number] Acct: [id number] Name: MARK SERRANO Rep #: [id number] : 1950 68 From: Aj Jimenez MD Attending Dr: Marcos ABRAHAM,Jalen Mary Status: REG CLI Ordering Dr: Jalen Rodríguez MD Date: 11/15/18 Location: [facility] Sex: M C Admitted: Reason For Study: SOB Procedure This was a 2D Doppler, Color Flow transthoracic echocardiogram. Technically difficult study due to patient body habitus. All images obtained from subcostal window. Exam performed in department. Left Ventricle Normal size and thickness. The estimated ejection fraction is 60 %. Stage 1 diastolic dysfunction. No regional wall motion abnormalities noted. Right Ventricle Normal size and thickness. Normal systolic function. Atria Normal left atrium. Normal right atrium. Normal atrial septum. Mitral Valve The mitral valve is structurally normal. No prolapse or stenosis seen. Tricuspid Valve Normal tricuspid valve. Trivial tricuspid valve insufficiency. Right ventricular systolic pressure estimated to be 38 mmHg. Mild pulmonary hypertension. Aortic Valve Trisinus/trileaflet aortic valve. Mild focal aortic valve thickening. There is no aortic stenosis. Trivial aortic valve insufficiency. Pulmonic Valve Normal pulmonic valve. Great Vessels Normal aortic root. Normal arch. Normal inferior vena cava. Inferior vena cava collapse with sniff. Pericardium/Pleural No pericardial effusion. MMode/2D Measurements AND Calculations LVIDd: 4.1 cm IVSd: 1.1 cm Ao root diam: 3.6 cm LVIDs: 3.0 cm LVPWd: 0.83 cm LA dimension: 2.1 cm FS: 26.8 % Time Measurements MV dec time: 0.18 sec Doppler Measurements AND Calculations MV E max mauricio: 56.2 cm/sec Lat Peak E' Mauricio: 6.8 cm/sec Med Peak E' Mauricio: 8.3 cm/sec MV A max mauricio: 71.3 cm/sec E/E' lat: 8.3 E/E' med: 6.8 MV E/A: 0.79 Ao V2 max: 102.7 cm/sec LV V1 max: 83.4 cm/sec PA V2 max: 100.1 cm/sec Ao max P.2 mmHg LV V1 max P.8 mmHg Ao V2 mean: 67.4 cm/sec LV V1 mean P.2 mmHg Ao mean P.1 mmHg LV V1 mean: 51.5 cm/sec Ao V2 VTI: 18.0 cm LV V1 VTI: 10.9 cm TR max mauricio: 287.6 cm/sec TR max P.1 mmHg Interpretation Summary The estimated ejection fraction is 60 %. Stage 1 diastolic dysfunction. Trivial tricuspid valve insufficiency. Right ventricular systolic pressure estimated to be 38 mmHg. Mild pulmonary hypertension. Trivial aortic valve insufficiency. Compared to echo report dated 01/07/2015, no appreciable changes noted. Ordering Physician: Jalen Rodríguez Referring Physician: Jalen Rodríguez Chi Performed By: Yung Delatorre RCS 11/16/18919 Date Aj Jimenez MD CC: Jalen Rodríguez MD Date Dictated: 11/15/18 1358 Date Transcribed: 11/16/18919 Record Tabulating Clerk: Signed PROGRESS Observed: 11/14/2018 Status: COMPLETED Source: [place] 8:15 PM [facility] REPOSITORY [facility] ID: [id number] Author: Evelyn Gillespie (Pa) Service: (none) Author Type: Physician Pipeline Engineer Type: Progress Notes Filed: 11/14/2018 8:28 PM Note Text: FOLLOW UP VISIT - ENDOSCOPY NAME: Mark Serrano [facility] NO.: [id number] DATE OF SERVICE: 11/11/2018 : 1950 REFERRING PHYSICIAN: Jacqui Cadet MD Mark is a patient I am following with Dr. Kamara. Patient recently presented to [facility] and was admitted with complaints of nausea, [...] with more than 50% of the total kuyd-kw-cqyc time of the visit in counseling / coordination of care. CECI Slaughter Observed: 11/11/2018 Status: COMPLETED Source: [place] 9:[address] [facility] REPOSITORY Office Visit (GENSWS) MARK SERRANO ([id number]) 1950 M Date Time Provider Department 1/18/19 9:30 AM EVELYN GILLESPIE (PA) During your visit today, we recorded the following information about you: Evelyn Gillespie PA-C 11/11/2018 10:06 AM Signed -Continue omeprazole and reglan, dietary and lifestyle modifications as discussed -Call immediately if any recurrent symptoms -Follow up with Dr. Rodríguez next week The following instructions are important for you related to your office visit today with the [facility] General Surgeons. INSTRUCTIONS FOR PEPTIC ULCER DISEASE [...] you should contact our office immediately @ [phone] and ask to be transferred to the General Surgery department. Evelyn Gillespie PA-C 11/14/2018 8:28 PM Signed FOLLOW UP VISIT - ENDOSCOPY NAME: Mark [facility] NO.: [id number] DATE OF SERVICE: 11/11/2018 : 1950 REFERRING PHYSICIAN: Jacqui Cadet MD Mark is a patient I am following with Dr. Kamraa. Patient recently presented to [facility] and was admitted with complaints of nausea, [...] with more than 50% of the total gbuv-oy-cbap time of the visit in counseling / coordination of care. Evelyn Gillespie PA-C Referring Provider: JACQUI CADET [[id number]] Allergies As of Date: 11/11/2018 Noted Allergy [...] to your office visit today with the [facility] General Surgeons. INSTRUCTIONS FOR PEPTIC ULCER DISEASE [...] you should contact our office immediately @ [phone] and ask to be transferred to the General Surgery department. Follow-up and Disposition History Recorded Encounter Status:Closed by EVELYN GILLESPIE PA-C on 11/14/18 CBC W/DIFF, AUTOMATED Collected: 11/09/2018 Status: F Source: [place] 5:34 PM [facility] REPOSITORY TYPE CODE TESTS RESULT OUT OF [...] Lymph 0.91 Performed By: #### L100.0100 #### [facility] Laboratory [address] [place], [address] BASIC METABOLIC Collected: 11/09/2018 Status: F Source: [place] PROFILE ([facility]) 5:34 PM [facility] REPOSITORY TYPE CODE TESTS RESULT OUT OF [...] GAP 5 Performed By: #### L500.2500 #### [facility] Laboratory [address] [place], [address] B[place] Observed: 11/03/2018 Status: COMPLETED Source: [place] 12:[address] [facility] REPOSITORY Telephone (20linesSWS) MARK SERRANO ([id number]) 1950 M Date Time Provider Department 11/03/18 KAY KAMARA B-ObviousS During your visit today, we recorded the following information about you: Ian Shafer LPN 11/03/2018 8:28 AM Signed Please contact patient for post op OV [facility] with Amanda. Joan Orozco 11/03/2018 9:05 AM Signed 1st attempt left message for patient to call back and schedule. Lita Keenan Psr 11/08/2018 1:01 PM Signed SCHEDULED 11/11/2018.Lita Keenan Psr Allergies As of Date: 11/03/2018 Noted Allergy Reaction PENICILLIN 07/06/2018 1 - Mental Status Change Date Reviewed: 07/13/2018 Reviewed by: Tali (Deyvi) DEYVI Ascencio - Fully Assessed Reason for Visit: [...] DISCHARGE SUMMARY Observed: 10/30/2018 Status: F Source: [place] 2:40 PM [facility] REPOSITORY [facility] Medical Records Department [address] 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 Nicotine abuse (Chronic) - resolved....quit smoking Hypertension (Chronic) CKD (chronic kidney disease) stage 4, GFR 15-29 ml/min (Chronic) Following with Dr. Chapman [facility] Course and Treatment Imaging Results: Clinical Impression(s) from Imaging Studies Chest X-Ray 10/25/18 20:17 IMPRESSION: No acute cardiopulmonary abnormalities. Stable COPD with mild fibrosis. Electronically Signed: Taryn Cummins MD at 21:59 EST Tel Direct: [phone], Service support , Abdomen/Pelvis CT 10/27/18 05:37 [...] Ned Denny MD at 12:43 EST Tel [phone], Service support , KUB X-Ray 10/29/18 18:35 IMPRESSION: 1. Removal of enteric tube. No dilated loops of small bowel. Colonic gas confirmed. Electronically Signed: Geovanny Crockett MD at 18:59 EST , Service support , Dr. Kay Kamara[facility] general surgery Dr. Webber and Dr. Velasquez-[place] nephrology Operations: None Procedures: EGD - Gastritis [...] who presented to the emergency department at [facility] on 10/25/2018 complaining of increasing shortness of [...] protein intact. He was seen by the floor mechanic prior to discharge and educated on a [...] no cyanosis This note was generated with [employer]cal[employer] dictation software. It may contain incorrect words, [...] [Prinivil] 5 mg PO QDAY 10/26/18 Tiotropium Terreton [Spiriva 18 MCG] 1 cap INHALATION DAILY [...] applicable Code Visit Inpatient E AND M: 27391 Disch Hosp 10/30/18 1440 <Electronically signed by Es Valdez DO> Date Es Valdez DO Cosigner Signature (if applicable): Date CC: Yelena Valdez; Yoan Ochoa MD; Kay Kamara MD; Jalen Rodríguez MD Signed DISCHARGE INSTRUCTION Observed: 10/30/2018 Status: F Source: [place] 2:17 PM [facility] REPOSITORY [facility] Medical Records Department [address] [place] [address] [place] [address] Instructions for Home/Discharge Instructions 10/30/18 1402 MR#: [id number] Acct: [id number] Name: MARK SERRANO Rep #: [id number] : 1950 68 From: Es Valdez DO [...] [Prinivil] 5 mg PO QDAY 10/26/18 Tiotropium Terreton [Spiriva 18 MCG] 1 cap INHALATION DAILY [...] Signed PROGRESS Observed: 10/30/2018 Status: COMPLETED Source: [place] 1:04 PM [facility] MAIN [place] REPOSITORY [facility] ID: [id number] Author: Kay Kamara Service: (none) Author Type: Physician Type: Progress Notes Filed: 10/30/2018 1:09 PM Note Text: OPERATIVE NOTATION FOR [facility] SURGICAL PROCEDURE. October 28, 2018 Mark Gutierreser 1950 [id number] male PROCEDURE: EGD WITH BIOPSY - [id number] SURGEON: Alva Kamara M.D. FACS STUDENT FINANCIAL AID MANAGER: None DEPT: WLucho PROVIDER: [id number] Kamara MD POS: [id number] DIAGNOSIS: (R11.11) Vomiting without nausea, intractability of [...] Clean Contaminated Operative note dictated in the [facility] dictation system. Kay Kamara MD CBC-COMPLETE BLOOD CNT Collected: 10/30/2018 Status: F Source: [place] NO DIFF 6:15 AM [facility] REPOSITORY TYPE CODE TESTS RESULT OUT OF [...] MPV 9.6 Performed By: #### L100.0500 #### [facility] Laboratory [address] [place], [address] BASIC METABOLIC Collected: 10/30/2018 Status: F Source: [place] PROFILE (BMP) 6:15 AM [facility] REPOSITORY TYPE CODE TESTS RESULT OUT OF [...] GAP 7 Performed By: #### L500.2500 #### [facility] Laboratory [address] [place], [place], [address] ABDOMEN SINGLE VIEW Observed: 10/29/2018 Status: F Source: [place] 6:19 PM [facility] REPOSITORY [facility] Imaging Services [address] [place] [address] Abdomen Single View MR#: [id number] Acct: [id number] Name: MARK SERRANO Rep #: [id number] : 1950 M 68 From: Geovanny Crockett MD PCP: Marcos ABRAHAM,Jalen Chi Status: ADM IN Study: Abdomen Single View Date of Exam: 10/29/18 Exam# [id number] Ordering Dr: Es Valdez DO STUDY: X-RAY [...] , CC: Yelena Valdez; Jalen Rodríguez MD Record Tabulating Clerk: Signed CBC-COMPLETE BLOOD CNT Collected: 10/29/2018 Status: F Source: [place] NO DIFF 6:57 AM [facility] REPOSITORY TYPE CODE TESTS RESULT OUT OF [...] MPV 9.6 Performed By: #### L100.0500 #### [facility] Laboratory [address] [place], [address] BASIC METABOLIC Collected: 10/29/2018 Status: F Source: [place] PROFILE (BMP) 6:57 AM [facility] REPOSITORY TYPE CODE TESTS RESULT OUT OF [...] GAP 6 Performed By: #### L500.2500 #### [facility] Laboratory [address] [place], [address] 12 LEAD ELECTROCARDIOGRAM Observed: 10/28/2018 Status: F Source: [place] 2:42 PM [facility] REPOSITORY [facility] Cardiovascular Services [address] [place] [address] 12 Lead EKG 10/27/18 0000 MR#: [id number] Acct: [id number] Name: MARK SERRANO Rep #: [id number] : 1950 68 From: Yemi Leal MD Attending Dr: Yelena Valdez Status: ADM IN Ordering Dr: Dakota Gonzales MD Date: 10/27/18 Location: U Sex: M C Admitted: 10/26/18 Test Reason [...] Abnormal ECG Confirmed by STEVE ABRAHAM, YEMI ([id number]), editor index CRISTO SANTOS ([id number]) on 10/28/2018 2:42:32 PM Referred By: DR DUNCAN Confirmed By:YEMI LEAL MD 10/28/18 1442 Date Yemi Leal MD CC: Yelena Valdez; Dakota Gonzales MD; Jalen Rodríguez MD Signed OPERATIVE REPORT - Observed: 10/28/2018 Status: F Source: ELGIN ENDOSCOPY 11:55 AM [facility] REPOSITORY [facility] Medical Records Department [address] [place] [address] Operative Report - Endoscopy MR#: [id number] Acct: [id number] Name: MARK SERRANO Rep #: [id number] : 1950 68 From: Kay Kamara MD [...] by the physician, the nurse and the senior automation engineer in the procedure room. Mental Status Examination: [...] present medications. Procedure Code(s): --- Professional --- 69492, Esophagogastroduodenoscopy, flexible, transoral; with biopsy, single or multiple CPT copyright 2017 [employer]. All rights reserved. The codes documented in this report are preliminary and upon hoisting engineer pile driving review may be revised to meet current compliance requirements. Kay Kamara MD 10/28/2018 11:55:22 AM This report has been signed electronically. Number of Addenda: 0 Note Initiated On: 10/28/2018 10:29 AM 10/28/18 1155 Date Kay Kamara MD Cosigner Signature: Date (if indicated) CC: Lindsey Velasquez MD; Yelena Valdez; Kay Kamara MD; Jalen Rodríguez MD Date Dictated: 10/28/18 1029 Date Transcribed: Record Tabulating Clerk: HILL Signed IMMUNOHISTOCHEMISTRY Observed: 10/28/2018 Status: F Source: ELGIN 11:00 AM [facility] REPOSITORY Patient: MARK SERRANO : 1950 (68/M) Acct Num: [id number] Phys: Yelena Valdez Unit Num: [id number] Loc: U [id number] Specimen: [id number] Received: 10/28/18 - 1316 Spec Type: IMMUNO TISSUES 1 TISSUES: B. Stomach, NOS SPECIMEN INFORMATION: Tissue Source: B - Antral biopsy Clinical Info: Nausea and vomiting Specimen Number: [id number] CPT code: 01551 METHODOLOGY: Deparaffinized sections of prefer/formalin-fixed tissue or [...] developed and their performance characteristics determined by [facility]. They may not have been cleared or approved by the U.S. Food and Drug Administration. The FDA has determined that such clearance or approval is not necessary. INTERPRETATION: B. Antral biopsy: Negative for Helicobacter pylori organisms. AM:hill 10/31/18 PHYSICIAN AND INSTITUTION [address] [address] Signed Alvaro Anguiano DO 10/31/18 <signature on file> Performed By: #### PIMM #### [facility] [address] [place] [address], [id number] CBC-COMPLETE BLOOD CNT Collected: 10/28/2018 Status: F Source: JOSEPH NO DIFF 6:40 AM [facility] REPOSITORY TYPE CODE TESTS RESULT OUT OF [...] MPV 9.6 Performed By: #### L100.0500 #### [facility] [address] [place], [place], [address] BASIC METABOLIC Collected: 10/28/2018 Status: F Source: JOSEPH PROFILE (BMP) 6:40 AM [facility] REPOSITORY TYPE CODE TESTS RESULT OUT OF [...] Performed By: #### L500.2500, L501.2300, L501.5200 #### [facility] [address] [place], [place], [address] PHOSPHORUS Collected: 10/28/2018 Status: F Source: ELGIN 6:40 AM [facility] REPOSITORY TYPE CODE TESTS RESULT OUT OF RANGE REFERENCE UNITS LAB L501.2300 2.5-4.9 mg/dL High PHOS 5.0 Performed By: #### L500.2500, L501.2300, L501.5200 #### [facility] [address] [place], [address] MAGNESIUM Collected: 10/28/2018 Status: F Source: ELGIN 6:40 AM [facility] REPOSITORY TYPE CODE TESTS RESULT OUT OF RANGE REFERENCE UNITS LAB L501.5200 1.6-2.6 mg/dL Normal MG 1.9 Performed By: #### L500.2500, L501.2300, L501.5200 #### [facility] [address] [place], [address] EGD ([facility]) Observed: 10/28/2018 Status: F Source: JOSEPH 12:00 AM [facility] REPOSITORY Patient: MARK SERRANO : 1950 (68/M) Acct Num: [id number] Phys: Yelena Valdez Unit Num: [id number] Loc: [facility] [id number] Specimen: [id number] Received: 10/28/18 - 1314 Spec [...] one cassette. / SJ:hill 10/28/18 TC:2 CPT: 89786 x3, 52505 HEADER OPERATION: EGD ([place]) PRE-OP DIAGNOSIS: Nausea and vomiting, possible duodenal [...] Negative for fungal organisms. AM:hill 10/31/18 Signed Alvaro Anguiano DO 10/31/18 <signature on file> Performed By: #### PEGD #### [facility] [address] [place], [address] CNOP Observed: 10/28/2018 Status: COMPLETED Source: WINTERS 12:[address] [facility] REPOSITORY Operative Note (Enc) (GENSWS) Progress Notes: Kay Kamara MD 10/30/2018 1:09 PM Signed OPERATIVE NOTATION FOR [facility] SURGICAL PROCEDURE. October 28, 2018 Mark Serrano 1950 [id number] male PROCEDURE: EGD WITH BIOPSY - [id number] SURGEON: Alva Kamara M.D. FACS STUDENT FINANCIAL AID MANAGER: None DEPT: WQ PROVIDER: P44=TpptstdKay Kamara MD POS: 6D1=YKVIESUWT DIAGNOSIS: (R11.11) Vomiting without nausea, intractability of [...] Clean Contaminated Operative note dictated in the [facility] dictation system. Kay Kamara MD Encounter Status:Closed by KAY KAMARA MD on 10/30/18 HH, HEMOGLOBIN AND Collected: 10/27/2018 Status: F Source: ELGIN HEMATOCRIT 9:03 PM [facility] REPOSITORY TYPE CODE TESTS RESULT OUT OF RANGE REFERENCE UNITS LAB L100.1300 13.0-16.5 g/dl Low HGB 10.0 LAB L100.1400 40-54 % Low HCT 32.8 Performed By: #### L100.0600 #### [facility] [address] [place], [address] CONSULTATION Observed: 10/27/2018 Status: F Source: ELGIN 6:13 PM [facility] REPOSITORY [facility] Medical Records Department [address] [place] [address] Consultation 10/27/18 1157 MR#: [id number] Acct: [id number] Name: MARK SERRANO Rep #: [id number] : 1950 68 From: Kay Kamara MD PCP: Jalen Rodríguez MD, Chi Status: ADM IN Y Location: [address] Reason for Consult Date of Consultation: 10/27/18 [...] vomiting for which he was admitted to [facility] from 07/06/18 to 07/13/18. Discharge summary from [facility] revealed: Mr. Serrano was admitted with intractable [...] GI as outpatient. Upper GI report from [facility] on July 07, 2018 demonstrated the following findings: FINDINGS: Initial bilingual interpreter film demonstrates a nonspecific bowel gas pattern. [...] DIAGNOSIS: See below SURGEON: Geovanny Sanders MD STUDENT FINANCIAL AID MANAGER: Mino Petersen. SURGERY/PROCEDURE: Esophagogastroduodenoscopy with biopsies. ANESTHESIA: Monitored Anesthesia Care LOG ID: [id number]. PREOPERATIVE DIAGNOSES: 1. Nausea and vomiting. 2. [...] condition. Pathology from his upper endoscopy at [facility] on July 11, 2018 demonstrated mild [...] was performed. He recalls it happened in [place]. Patient underwent upper endoscopy Dr. David Price [...] 1+ regurg per echo 01/21/2015 done @ [facility] Atherosclerosis of coronary artery of galena heart without angina pectoris (Chronic) Nonobstructive CAD [...] 1+ regurg per echo 01/21/2015 done @ [facility] Atherosclerosis of coronary artery of galena heart without angina pectoris (Chronic) I25.10 Nonobstructive [...] gastric and duodenal distention-recently worked up in [place] felt to not truly be gastric outlet [...] He recalls he underwent surgery likely in [place] with a small bowel resection he states [...] versus peptic ulcer disease. Recent endoscopy in [place] demonstrated mild gastritis was H. pylori negative. Patient uncertain when his last colonoscopy was performed. No obtainable records of colonoscopies locally. Patient with significant medical comorbidities including severe COPD, coronary disease, renal failure. 10/27/18 1813 <Electronically signed by Kay Kamara MD> Date Kay Kamara MD Cosigner Signature (if applicable): Date CC: Lindsey Velasquez MD; Kay Kamara MD; Jalen Rodríguez MD Signed HH, HEMOGLOBIN AND Collected: 10/27/2018 Status: F Source: ELGIN HEMATOCRIT 2:42 PM [facility] REPOSITORY TYPE CODE TESTS RESULT OUT OF RANGE REFERENCE UNITS LAB L100.1300 13.0-16.5 g/dl Low HGB 10.6 LAB L100.1400 40-54 % Low HCT 34.2 Performed By: #### L100.0600 #### [facility] [address] [place], [address] 12 LEAD ELECTROCARDIOGRAM Observed: 10/27/2018 Status: F Source: ELGIN 2:00 PM [facility] REPOSITORY [facility] Cardiovascular Services [address] [place] [address] 12 Lead EKG 10/25/182014 MR#: [id number] Acct: [id number] Name: MARK SERRANO Rep #: [id number] : 1950 68 From: Yemi Leal MD [...] Abnormal ECG Confirmed by STEVE ABRAHAM, YEMI ([id number]), editor index CRISTO SANTOS (56) on 10/27/2018 1:59:58 PM Referred By: ACACIA Confirmed By:YEMI LEAL MD 10/27/18 1400 Date Yemi Leal MD CC: Janet Cotton MD; Yelena Valdez; Jalen Rodríguez MD Signed URINALYSIS, COMPLETE Collected: 10/27/2018 Status: F Source: ELGIN 1:15 PM [facility] REPOSITORY Order Comment: How was Urine Obtained? PUBLIC RELATIONS MANAGER TO SPECIFY TYPE CODE TESTS RESULT OUT [...] URINE RARE Performed By: #### L400.0001 #### [facility] [address] [place], [address] CREATININE, URINE Collected: 10/27/2018 Status: F Source: ELGIN 1:15 PM [facility] REPOSITORY TYPE CODE TESTS RESULT OUT OF RANGE REFERENCE UNITS LAB L502.0300 NO RANGE EST. mg/dL Normal URINE 209.00 CREAT Performed By: #### L502.0300 #### [facility] [address] [place], [address] URINE SODIUM Collected: 10/27/2018 Status: F Source: JOSEPH 1:15 PM [facility] REPOSITORY TYPE CODE TESTS RESULT OUT OF RANGE REFERENCE UNITS LAB L501.5500 Not Establ. mmol/L Normal UR NA 28 Performed By: #### L501.5500 #### [facility] [address] [place], [address] CONSULTATION Observed: 10/27/2018 Status: F Source: JOSEPH 11:08 AM [facility] REPOSITORY [facility] Medical Records Department [address] [place] [address] Consultation 10/27/18 1053 MR#: [id number] Acct: [id number] Name: MARK SERRANO Rep #: [id number] : 1950 68 From: Lindsey Velasquez MD PCP: Marcos ABRAHAM,Jalen Mary Status: ADM IN Y Location: [place] [address] Problem List (1) Acute kidney injury superimposed on chronic kidney disease Status: Chronic (2) Hydronephrosis Status: Acute Consultation - Renal PCP/ Referring MD: Requesting physician: [] Primary care physician: Jalen Rodríguez MD - History of Present Illness History of Present Illness: The patient is a 68 year old M past medical history of Crohn's disease COPD, non-ST ME, hypertension, chronic kidney disease stage III/IV, history [...] seems around 1.8-2.0. Patient denies seen a field radio operator in outpatient basis. Currently has NG tube. [...] BREATH Albuterol/Ipratropium (Duoneb) 3 ml INHALATION Q4H.RT [facility] Last Admin: 10/27/18 06:48 Dose: Not Given Atorvastatin Calcium (Lipitor) 20 mg PO QHS [facility] Last Admin: 10/26/18 22:35 Dose: 20 mg Clonidine (Catapres) 0.1 mg PO Q6H PRN PRN Reason: sbp > 160 Clonidine HCl (Catapres-Tts1) 0.1 mg TRANSDERM. Q7D [facility] Last Admin: 10/27/18 10:11 Dose: 0.1 mg Guaifenesin (Mucinex) 1,200 mg PO BID [facility] Last Admin: 10/27/18 08:05 Dose: Not Given Hydralazine HCl (Apresoline Iv) 10 mg IV Q6H PRN PRN PRN Reason: Systolic BP >160 Last Admin: 10/27/18 06:57 Dose: 10 mg Azithromycin 500 mg/ Dextrose 255 mls @ 250 mls/hr IV Q24 [facility] Stop: 10/28/18 11:02 Last Admin: 10/27/18 10:11 Dose: 250 mls/hr Sodium Chloride () 250 mls @ 15 mls/hr IV .[id number] PRN PRN Reason: SALINE FLUSH Sodium Chloride () 1,000 mls @ 75 mls/hr IV .[id number] [facility] Last Admin: 10/27/18 10:11 Dose: 75 mls/hr Pantoprazole Sodium 40 mg/ (Sodium Chloride) 110 mls @ 330 mls/hr IV Q12 [facility] Last Admin: 10/27/18 07:31 Dose: 330 mls/hr Labetalol HCl (Trandate) 10 mg IV Q4H PRN PRN PRN Reason: Systolic BP >160 Lisinopril (Zestril) 5 mg PO DAILY [facility] Last Admin: 10/27/18 08:05 Dose: Not Given Loperamide HCl (Imodium) 2 mg PO DAILY [facility] Last Admin: 10/27/18 08:05 Dose: Not Given Lorazepam (Ativan) 1 mg IV Q8 PRN PRN Reason: ANXIETY Last Admin: 10/27/18 00:23 Dose: 1 mg Magnesium Hydroxide (Milk Of Magnesia) 30 ml PO DAILY PRN PRN Reason: Constipation Mesalamine (Lialda) 2.4 gm PO DAILYCM [facility] Last Admin: 10/27/18 08:05 Dose: Not Given Methylprednisolone (Solu-Medrol) 40 mg IV Q8 [facility] Last Admin: 10/27/18 05:09 Dose: 40 mg Nutritional Formula (Lactose Free) (Ensure Enlive) 120 ml PO 4X/DAY [facility] Last Admin: 10/27/18 08:05 Dose: Not Given [...] 1+ regurg per echo 01/21/2015 done @ [facility] Atherosclerosis of coronary artery of galena heart without angina pectoris (Chronic) Nonobstructive CAD [...] Status: F Source: JOSEPH HEMATOCRIT 8:55 AM [facility] REPOSITORY TYPE CODE TESTS RESULT OUT OF RANGE REFERENCE UNITS LAB L100.1300 13.0-16.5 g/dl Low HGB 12.2 LAB L100.1400 40-54 % Low HCT 39.0 Performed By: #### L100.0600 #### [facility] [address] [place] [place], [address] TYPE AND SCREEN Collected: 10/27/2018 Status: F Source: JOSEPH 8:55 AM [facility] REPOSITORY Order Comment: Reason for Type AND Screen/Red Cells: HEMORRHAGE, GI BLEED TYPE CODE TESTS RESULT OUT OF RANGE REFERENCE UNITS LAB B10.0800 A Normal BLOOD TYPE GEL POSITIVE LAB B100.4000 Normal Antibody NEGATIVE Screen Performed By: #### B101.7450 #### [facility] [address] [place], [address] ABDOMEN/PEL W ORAL CONT Observed: 10/27/2018 Status: F Source: JOSEPH ONLY 8:07 AM [facility] REPOSITORY [facility] Imaging Services [address] [place] [address] Abdomen/Pel W ORAL Cont Only MR#: [id number] Acct: [id number] Name: MARK SERRANO Rep #: [id number] : 1950 M 68 From: Ned Denny MD PCP: Marcos ABRAHAM,Jalen [facility] Status: ADM IN Study: Abdomen/Pel W ORAL Cont Only Date of Exam: 10/27/18 Exam# [id number] Ordering Dr: Es Valdez DO STUDY: CT [...] Ned Denny MD at 12:43 EST Tel [phone], Service support , CC: Yleena Valdez; Jalen Rodríguez MD Record Tabulating Clerk: Signed CHEST 1 VIEW Observed: 10/27/2018 Status: F Source: ELGIN (PORTABLE) 7:57 AM [facility] REPOSITORY [facility] Imaging Services [address] [place] [address] Chest 1 View (Portable) MR#: [id number] Acct: [id number] Name: MARK SERRANO Rep #: [id number] : 1950 M 68 From: Shanna Aguillon MD PCP: Jalen Rodríguez MD, Chi Status: ADM IN Study: Chest 1 View (Portable) Date of Exam: 10/27/18 Exam# [id number] Ordering Dr: Es Valdez DO STUDY: X-RAY [...] Tel , Service support , CC: Yelena Valedz; Jalen Rodríguez MD Record Tabulating Clerk: Signed ABDOMEN SINGLE VIEW Observed: 10/27/2018 Status: F Source: ELGIN 7:57 AM [facility] REPOSITORY [facility] Imaging Services [address] [place] [address] Abdomen Single View MR#: [id number] Acct: [id number] Name: MARK SERRANO Rep #: [id number] : 1950 M 68 From: Jason Rocha PCP: Jalen Rodríguez MD, Chi Status: ADM IN Study: Abdomen Single View Date of Exam: 10/27/18 Exam# [id number] Ordering Dr: Es Valdez DO STUDY: X-RAY [...] , CC: Yelena Valdez; Jalen Rodríguez MD Record Tabulating Clerk: Signed ABDOMEN SINGLE VIEW Observed: 10/27/2018 Status: F Source: ELGIN (PORTABLE) 7:52 AM [facility] REPOSITORY [facility] Imaging Services [facility] [place] [address] Abdomen Single View (Portable) MR#: [id number] Acct: [id number] Name: MARK SERRANO Rep #: [id number] : 1950 68 From: Jason Rocha PCP: Jalen Rodríguez MD, Chi Status: ADM IN Study: Abdomen Single View (Portable) Date of Exam: 10/27/18 Exam# [id number] Ordering Dr: Es Valdez DO STUDY: X-RAY [...] , CC: Yelena Valdez; Jalen Rodríguez MD Record Tabulating Clerk: Signed CBC W/DIFF, AUTOMATED Collected: 10/27/2018 Status: F Source: ELGIN 6:50 AM [facility] REPOSITORY TYPE CODE TESTS RESULT OUT OF [...] BANDS SEEN Performed By: #### L100.0100 #### [facility] [address] [place], [address] BASIC METABOLIC Collected: 10/27/2018 Status: F Source: JOSEPH PROFILE (BMP) 6:50 AM [facility] REPOSITORY TYPE CODE TESTS RESULT OUT OF [...] GAP 8 Performed By: #### L500.2500 #### [facility] [address] [place], [place], [address] LIVER PROFILE Collected: 10/27/2018 Status: F Source: JOSEPH 6:50 AM [facility] REPOSITORY TYPE CODE TESTS RESULT OUT OF [...] Performed By: #### L500.3400, L501.2300, L501.5200 #### [facility] [address] [place], [address] PHOSPHORUS Collected: 10/27/2018 Status: F Source: ELGIN 6:50 AM [facility] REPOSITORY TYPE CODE TESTS RESULT OUT OF RANGE REFERENCE UNITS LAB L501.2300 2.5-4.9 mg/dL Normal PHOS 4.1 Performed By: #### L500.3400, L501.2300, L501.5200 #### [facility] [address] [place], [address] MAGNESIUM Collected: 10/27/2018 Status: F Source: JOSEPH 6:50 AM [facility] REPOSITORY TYPE CODE TESTS RESULT OUT OF RANGE REFERENCE UNITS LAB L501.5200 1.6-2.6 mg/dL Normal MG 1.8 Performed By: #### L500.3400, L501.2300, L501.5200 #### [facility] [address] [place], [address] HEMOGLOBIN A1C Collected: 10/27/2018 Status: F Source: JOSEPH 6:50 AM [facility] REPOSITORY TYPE CODE TESTS RESULT OUT OF RANGE REFERENCE UNITS LAB L501.9985 4.2-6.3 % Normal HGB A1C 6.0 Performed By: #### L501.9985 #### [facility] [address] [place], [address] ABDOMEN/PELVIS WITHOUT Observed: 10/27/2018 Status: F Source: JOSEPH CONT 5:38 AM [facility] REPOSITORY [facility] Imaging Services [address] [place] [address] Abdomen/Pelvis without Cont MR#: [id number] Acct: [id number] Name: MARK SERRANO Rep #: [id number] : 1950 M 68 From: Chuck Lyons MD PCP: Marcos ABRAHAM,Jalen Mary Status: ADM IN Study: Abdomen/Pelvis without Cont Date of Exam: 10/27/18 Exam# [id number] Ordering Dr: Dakota Gonzales MD STUDY: CT [...] CC: Dakota Gonzales MD; Jalen Rodríguez MD Record Tabulating Clerk: Signed Observed: 10/26/2018 Status: F Source: JOSEPH CULTURE, SPUTUM 3:25 PM [facility] REPOSITORY Order Date: 10/26/18 CALLED [facility] 10/26/18 4611 TO COLLECT SAMPLE Comfort Jordanmaye. Gram Stain Acceptable Specimen? Yes (<25 Epithelial cells per/lpf) Gram Stain 3+ White Blood Cells Rare Gram positive cocci in clusters Resp. Culture #2 No Haemophilus, Streptococcus pneumoniae, beta-hemolytic Streptococcus or Staphylococcus aureus isolated. ORGANISM 1: Presumptive C albicans Amount Growth 1+ ORGANISM 2: Mixed Connie Amount Growth 2+ Performed By: #### M100.0800 #### [facility] [address] [place], [address] HISTORY AND PHYSICAL Observed: 10/26/2018 Status: F Source: JOSEPH EXAM 9:27 AM [facility] REPOSITORY [facility] Medical Records Department [address] [place] [address] History and Physical 10/25/18 2308 MR#: [id number] Acct: [id number] Name: MARK SERRANO Rep #: [id number] : 1950 68 From: Dakota Gonzales MD PCP: Marcos ABRAHAM,Jalen Mary Status: ADM IN Y Location: [place] [address] Problem List (1) Stage 4 very severe [...] history of COPD; former smoker; non-ST elevation ME; bowel resection and hypertension who presented with [...] @ [facility] Atherosclerosis of coronary artery of galena heart without angina pectoris (Chronic) Nonobstructive CAD [...] @ [facility] Atherosclerosis of coronary artery of galena heart without angina pectoris (Chronic) I25.10 Nonobstructive [...] History (Last Reviewed 10/26/18 @ 09:24 by Dakoat Gonzales MD) Father neg FH of ASCVD [...] history of COPD; former smoker; non-ST elevation ME; bowel resection; colon resection and hypertension who [...] stable. 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 Chapman field radio operator. Continue outpatient follow-up. Irritable bowel syndrome/Crohn's Disease: Loperamide and Pentasa continued. DVT prophylaxis Subcutaneous heparin. Code Visit Inpatient E AND M: 00422 Init Hosp L3 10/26/18 0927 <Electronically signed by Dakota Gonzales MD> Date Dakota Gonzales MD Cosigner Signature: Date (if applicable) CC: Dakota Gonzales MD; Jalen Rodríguez MD Signed CBC W/DIFF, AUTOMATED Collected: 10/26/2018 Status: C Source: JOSEPH 8:20 AM [facility] REPOSITORY TYPE CODE TESTS RESULT OUT OF [...] 10/26/18 1341 PATH REV previously reported as: Soledad arpan Performed By: #### L100.0100 #### [facility] [address] [place], [place], [address] BASIC METABOLIC Collected: 10/26/2018 Status: F Source: ELGIN PROFILE (BMP) 8:20 AM [facility] REPOSITORY TYPE CODE TESTS RESULT OUT OF [...] GAP 7 Performed By: #### L500.2500 #### [facility] [address] [place], [address] Observed: 10/26/2018 Status: F Source: ELGIN RESPIRATORY PANEL 4:10 AM [facility] MOLECULAR REPOSITORY RP PANEL ADENOVIRUS Not Detected [...] acid amplification Performed By: #### M100.638 #### [facility] [address] [place], [address] EMERGENCY DEPARTMENT Observed: 10/26/2018 Status: F Source: ELGIN SUMMARY 12:08 AM [facility] REPOSITORY [facility] Medical Records Department [address] [place] [address] Emergency Department Summary 10/25/182021 MR#: [id number] Acct: [id number] Name: MARK SERRANO Rep #: [id number] : 1950 68 From: Janet Cotton MD PCP: Marcos ABRAHAM,Jalen [facility] Status: REG ER - ER Visit Summary [...] exacerbation, hypoxia This note was generated with [employer] dictation software. It may contain incorrect words, [...] your Primary Care Provider. Call [facility] ([phone]) or report to the closest Emergency Room. Call 911 if necessary. 10/26/18 0008 <Electronically signed by Janet Cotton MD> Date Janet Cotton MD Cosigner Signature (If Indicated): Date CC: Jalen Rodríguez MD BLOOD GASES BY CPS Collected: 10/25/2018 Status: F Source: JOSEPH 8:42 PM [facility] REPOSITORY TYPE CODE TESTS RESULT OUT OF [...] ISTAT 93 Performed By: #### L9000.0800 #### [facility] Point of Care [address] [place] [address] LACTIC ACID Collected: 10/25/2018 Status: F Source: ELGIN 8:23 PM [facility] REPOSITORY Order Comment: Yes/No query for Sepsis Lactate Rule Y TYPE CODE TESTS RESULT OUT OF RANGE REFERENCE UNITS LAB L503.6005 0.4-2.0 mmol/L Normal LACTIC ACID 1.7 Performed By: #### L503.6005 #### [facility] [address] [place], [address] CHEST 1 VIEW Observed: 10/25/2018 Status: F Source: ELGIN (PORTABLE) 8:18 PM [facility] REPOSITORY [facility] Imaging Services [address] [place] [address] Chest 1 View (Portable) MR#: [id number] Acct: [id number] Name: MARK SERRANO Birdie Rep #: [id number] : 1950 M 68 From: Taryn Cummins MD PCP: Marcos ABRAHAM,Jalen Chi Status: REG ER Study: Chest 1 View (Portable) Date of Exam: 10/25/18 Exam# [id number] Ordering Dr: Janet Cotton MD STUDY: X-RAY [...] Cummins MD at 21:59 EST Tel Direct: [phone], Service support , CC: Janet Cotton MD; Jalen Rodríguez MD Record Tabulating Clerk: Signed CBC W/DIFF, AUTOMATED Collected: 10/25/2018 Status: F Source: JOSEPH 8:15 PM [facility] REPOSITORY TYPE CODE TESTS RESULT OUT OF [...] Lymph 0.78 Performed By: #### L100.0100 #### [facility] [address] [place], [address] BASIC METABOLIC Collected: 10/25/2018 Status: F Source: ELGIN PROFILE (BMP) 8:15 PM [facility] REPOSITORY TYPE CODE TESTS RESULT OUT OF [...] GAP Performed By: #### L500.2500, L501.4010 #### [facility] [address] [place], [address] TROPONIN-I Collected: 10/25/2018 Status: F Source: ELGIN 8:15 PM [facility] REPOSITORY TYPE CODE TESTS RESULT OUT OF RANGE REFERENCE UNITS LAB L501.4010 <0.045 ng/mL Normal < 0.015 TROPONIN-I Result Comment: TROPONIN-I EXPECTED VALUES <0.045 Negative 0.045 - 0.590 Consistent with Cardiac Damage > OR = 0.600 Critical Value Not every elevated troponin is indicative of ME. These values should be used with clinical judgement in examining the patient's clinical picture for diagnosis. To establish a diagnosis of ME versus myocardial injury, there must be a demonstrated rise and/or fall in the troponin values, in addition to ischemic symptoms, EKG changes, new regional wall motion abnormality, and/or angiographical evidence. PLEASE NOTE: REFERENCE RANGES EDITED 18 Performed By: #### L500.2500, L501.4010 #### [facility] [address] [facility] [place], [address] 6 MINUTE WALK TEST Observed: 10/04/2018 Status: F Source: ELGIN 4:10 PM [facility] REPOSITORY [facility] Pulmonary Services/Neurology [address] [place] [id number] MR#: [id number] Acct: [id number] Name: MARK SERRANO Rep #: [id number] : 1950 68 From: Salas Ocampo MD Referring Dr: Delma Frey NP Date: Ordering Dr: Sex: M C Location: PSN PSN 6 Minute Walk Test - 6 Minute Walk Test 6 Minute Walk Test: 6 Minute Walk Test PSN:6-Minute Walk Test Start: 10/04/18 14:02 Freq: Status: Active Protocol: RESP.6MINW Document 10/04/18 12:27 SMB (Rec: 10/04/18 14:05 B [id number]) 6 Minute Walk Test Date Performed 10/04/18 [...] CC: Date Dictated: 10/04/181607 Date Transcribed: 10/04/181607 Record Tabulating Clerk: Salas Ocampo Signed PULMONARY VISIT REPORT Observed: 09/28/2018 Status: F Source: ELGIN 9:58 AM [facility] REPOSITORY [facility] [address] [place] [address] OFFICE VISIT Date of Service: 09/28/18 MR#: [id number] Acct: [id number] Name: MARK SERRANO Rep #: [id number] : 1950 Provider: Salas Ocampo MD Age/Sex: 68/M Location: [facility].PMW Status: Signed Assessment AND Plan Problems 1. [...] Orders: Plan Detail Follow Up 4 Months ([facility]) HPI 3 M FU: Chief Complaint: Shortness [...] the hospital for his breathing issue in [place]. Patient states he feels improved from that [...] DAILY #30 inh 06/23/18 [Rx Confirmed 09/28/18] [facility] Medical History Non-rheumatic tricuspid valve insufficiency (Chronic) Atherosclerosis of coronary artery of galena heart without angina pectoris (Chronic) Nicotine abuse [...] CONSULT PROG Observed: 07/13/2018 Status: COMPLETED Source: [place] 4:59 PM [facility] OTHER CAMPUS REPOSITORY HNO ID: [id number] Author: Geovanny Sanders Service: Gastroenterology Author Type: [...] RECTAL q 4 H PRN phenol 1 [place] (CHLORASEPTIC) 1 [place] MUCOUS MEMBRANE (TOPICAL MOUTH AND THROAT) q [...] CASE MANAGEM Observed: 07/13/2018 Status: COMPLETED Source: [place] 1:29 PM CLINIC OTHER CAMPUS REPOSITORY HNO ID: [id number] Author: Lalita Ferris) DEYVI Ritter Service: Care Management Author Type: Registered Nurse Type: Care Mgt Progress Note Filed: 07/13/2018 1:31 PM Note Text: CARE MANAGEMENT DISCHARGE NOTE SERVICE DATE: 07/13/2018 SERVICE TIME: 1:29 PM LOS: 6 days Admission Date: 07/06/2018 DISCHARGE ARRANGEMENT (list agency and phone number) Home Provider: yaima Phone: [phone] CAREGIVER ASSESSMENT: Caregiver is ready, willing and [...] 13, 2018 TIME: 1:29 PM PAGER/CONTACT #: [phone] CNDS Observed: 07/13/2018 Status: COMPLETED Source: [place] 11:43 AM CLINIC OTHER CAMPUS REPOSITORY HNO ID: [id number] Author: Amy Corrales Service: Hospital Medicine Author [...] Problems: Hypertension COPD (chronic obstructive pulmonary disease) ([facility]) Nicotine use disorder, F17.2 Resolved Problems: Bowel obstruction ([facility]) SBO (small bowel obstruction) ([facility]) Hospital Course as Described to [...] Component Value Units Date/Time MAGNESIUM BLOOD (AK,AV,EU,FV,HL,GILES,MM,SP) [[id number]] Collected: 07/13/18229 Order Status: Sent Lab Status: No result Specimen: Blood from BLOOD PHOSPHORUS BLOOD (AK,AV,EU,FV,HL,GILES,MM,SP) [[id number]] Collected: 07/13/18229 Order Status: Sent Lab Status: No result Specimen: Blood from BLOOD MAGNESIUM BLOOD (AK,AV,EU,FV,HL,GILES,MM,SP) [[id number]] Collected: 07/11/18253 Order Status: Sent Lab Status: No result Specimen: Blood from BLOOD PHOSPHORUS BLOOD (AK,AV,EU,FV,HL,GILES,MM,SP) [[id number]] Collected: 07/11/18253 Order Status: Sent Lab Status: [...] Cristy Pena Consulting: Kay Cummings Consulting: Christoph Capps None Patient Condition @ Discharge: Stable Discharge Disposition: [...] pena NUTRITION Observed: 07/13/2018 Status: COMPLETED Source: [place] 10:52 AM [facility] REPOSITORY HNO ID: [id number] Author: Maris Patrick RD Service: NST-Nutrition Support [...] reviewed GS/GI signed off DC TPN in [facility] Monitor oral intake, encouraged grazing Maris Patrick, [facility] NST--> [id number] CASE MANAGEM Observed: 07/13/2018 Status: COMPLETED Source: [place] 10:14 AM [facility] REPOSITORY HNO ID: [id number] Author: Lalita (Rn) Stone RN Service: Care [...] 13, 2018 TIME: 10:14 AM PAGER/CONTACT #: [phone] PROGRESS Observed: 07/13/2018 Status: COMPLETED Source: [place] 6:52 AM CLINIC OTHER CAMPUS REPOSITORY HNO ID: [id number] Author: Mojgan ([facility]) Megan Service: General Surgery Author Type: Nurse [...] Therapy: Nasal Cannula IANDO: Date 07/12/18699 - 07/13/1859 07/13/18699 - 07/14/18 0659 Shift 5330-6166 3804-7016 1426-0072 24 Hour Total 8453-1329 5560-5178 9254-7709 24 Hour Total I N T A [...] RECTAL q 4 H PRN phenol 1 [place] (CHLORASEPTIC) 1 [place] MUCOUS MEMBRANE (TOPICAL MOUTH AND THROAT) q [...] Note: Added automatically from request for surgery [id number] - Bowel obstruction (HCC) 07/07/2018 - SBO (small bowel obstruction) (HCC) 07/07/2018 - Nicotine use disorder, F17.2 07/07/2018 - Hypertension - COPD (chronic obstructive pulmonary disease) ([facility]) 68 year old male with [...] questions or concerns Mon-Fri 6a-5p please page [phone]. After 5pm and on Weekends and Holidays, please page [phone]. HEMOGRAM Collected: 07/13/2018 Status: F Source: [facility] 4:42 AM HEALTH SYSTEM REPOSITORY TYPE CODE [...] MPV 11.2 Performed By: #### CBC1 #### [address] [address] NURSING PROG Observed: 07/13/2018 Status: COMPLETED Source: [place] 4:00 AM CLINIC OTHER CAMPUS REPOSITORY HNO ID: [id number] Author: Nayeli (Rn) DEYVI Walls Service: Nursing Author Type: Registered Nurse Type: Nursing Progress Note Filed: 07/13/2018 4:10 AM Note Text: Nursing Progress Note Patient Name: Mark Serrano Patient Location: [place] [address] [address]* Patient refusing to have home inhaler put in the lock box. Patient stated he has been using his home inhaler every hour. Patient was educated on the effects of using his home inhaler too often and how it could make him feel worse due to also getting Breo Ellipta daily and Duoneb treatments PRN q4h. This note was completed by: Nayeli Walls RN MDRD GFR Collected: 07/13/2018 Status: F Source: [facility] 2:30 AM HEALTH SYSTEM REPOSITORY TYPE CODE TESTS RESULT OUT OF RANGE REFERENCE UNITS LAB GFRFN(LOINC >60mL/min/1.73m ) 2 eGFR 49.68 Result Comment: If the patient is , multiply the result by 1.210. Performed By: #### GFR #### [place] [address] BASIC PANEL Collected: 07/13/2018 Status: F Source: [facility] 2:30 AM HEALTH SYSTEM REPOSITORY TYPE CODE [...] Gap 9 Performed By: #### P8 #### [place] [address] MAGNESIUM BLOOD Collected: 07/13/2018 Status: F Source: [facility] 2:30 AM HEALTH SYSTEM REPOSITORY TYPE CODE TESTS RESULT OUT OF REFERENCE UNITS RANGE LAB MAG(LOINC) 1.6-2.6 mg/dL Magnesium Blood 2.2 Performed By: #### MAG #### [place] [address] PHOSPHORUS BLOOD Collected: 07/13/2018 Status: F Source: [facility] 2:30 AM HEALTH SYSTEM REPOSITORY TYPE CODE TESTS RESULT OUT OF REFERENCE UNITS RANGE LAB PHOS(LOINC 2.5-4.9 mg/dL ) Phosphorus Blood 3.3 Performed By: #### PHOS #### [place] [address] NURSING PROG Observed: 07/12/2018 Status: COMPLETED Source: [place] 4:18 PM [facility] REPOSITORY HNO ID: [id number] Author: Winnie (Rn) DEYVI Jarvis Service: Nursing Author Type: Registered Nurse Type: Nursing Progress Note Filed: 07/12/2018 4:20 PM Note Text: Pt gave permission for RN to speak to Zoila Davalos. THERAPY NT Observed: 07/12/2018 Status: COMPLETED Source: [place] 1:58 PM [facility] OTHER [facility] [place] REPOSITORY HNO ID: [id number] Author: Edith Murillo/Tin Garza Service: Occupational Therapy Author Type: Occupational Therapist Type: Therapy (PT/OT/Speech/Resp) Filed: 07/12/2018 2:03 PM Note Text: Occupational Therapy Evaluation SERVICE DATE: 07/12/2018 SERVICE TIME: 1325 to 1349 ROOM: [place] [address] Recommended Discharge Disposition: Home Recommended Discharge Disposition [...] daily living (ADL) Interventions Provided: Evaluation;Therapeutic Activity (71604) $ Evaluation-Low (61639) Billed Units: 1 unit Therapeutic Activity (73413) Treatment Minutes: 8 1 unit Skilled Intervention(s): [...] adaptive equipment to use if needed (ie. hospice chaplain to pick items off ground). Edu pt [...] Vomiting Added automatically from request for surgery [id number] - Bowel obstruction ([facility]) - SBO (small bowel obstruction) ([facility]) - Nicotine use disorder, F17.2 - Hypertension - COPD (chronic obstructive pulmonary disease) ([facility]) PAST MEDICAL HISTORY Diagnosis Date - Arthritis - COPD (chronic obstructive pulmonary disease) ([facility]) - Crohn's disease ([facility]) - Depression - Diarrhea - Emphysema - Hypertension - IBS (irritable bowel syndrome) - Unspecified essential hypertension PAST SURGICAL HISTORY Procedure Laterality Date - COLONOSCOP W/ OR W/O [facility] SPEC Colonoscopy x 4 - [...] Environment Patient Lives With: (friend) Assistance Available: roll grinder Entry To Home: Stairs;With Rail Number Of [...] for this therapy evaluation/treatment. SIGNATURE: Edith Garza OT/L PATIENT NAME: Mark Serrano DATE: July 12, 2018 TIME: 1:58 PM CONSULT PROG Observed: 07/12/2018 Status: COMPLETED Source: [place] 1:41 PM CLINIC OTHER CAMPUS REPOSITORY HNO ID: [id number] Author: Maryanne Castillo Service: General Surgery Author Type: Nurse Practitioner Type: Consult Progress Note Filed: 07/12/2018 1:45 PM Note Text: Continues to feel well. Minimal tenderness lower abdomen. Denies nausea, vomiting. +flatus, +BM. Gastric emptying study shows normal rate of gastric emptying of water. Okay to advance diet as tolerated from surgical standpoint. Maryanne Castillo APRN.[facility] Pager: [phone] Emergency General Surgery Service Pager: For questions or concerns Wed-Wed 6a-5p please page [phone]. After 5pm and on Weekends and Holidays, please page [phone]. NUTRITION Observed: 07/12/2018 Status: COMPLETED Source: [place] 1:33 PM [facility] OTHER [facility] REPOSITORY HNO ID: [id number] Author: Maris Patrick RD Service: NST-Nutrition Support [...] consult--> ? enteral support vs surgical intervention Lysilvia Reviewed, WT 44.1 kg TPN renewed: As is TPN script: 3.0 L/24 hrs providing 2020 calories ( 33 kcals/kg UBW 61 kg) and 70 gms pro ( 1.3 gms/kg UBW 61 kg) per day ? Maris Patrick, [facility] NST--> [phone] PROGRESS Observed: 07/12/2018 Status: COMPLETED Source: [place] 1:22 PM [facility] OTHER [facility] [place] REPOSITORY HNO ID: [id number] Author: Barbara Baldwin Service: Hospital Medicine Author [...] RECTAL q 4 H PRN phenol 1 [place] (CHLORASEPTIC) 1 [place] MUCOUS MEMBRANE (TOPICAL MOUTH AND THROAT) q [...] - - - - 16 - - 07/12/18 0211 - - - - 16 - - 07/11/181927 - - - - 16 - 44.1 [...] Result History NM GASTRIC EMPTYING LIQUID (Order #[id number]) on 07/12/2018 Assessment/Plan Pt denies n/v/abd pain [...] CONSULT PROG Observed: 07/12/2018 Status: COMPLETED Source: [place] 11:03 AM CLINIC OTHER CAMPUS REPOSITORY HNO ID: [id number] Author: Jovi Wilhelm Service: Gastroenterology Author Type: [...] RECTAL q 4 H PRN phenol 1 [place] (CHLORASEPTIC) 1 [place] MUCOUS MEMBRANE (TOPICAL MOUTH AND THROAT) q [...] Defer to general surgery SIGNATURE: Jovi Wilhelm APRN.POLLUTION CONTROL ENGINEER PATIENT NAME: Mark Serrano DATE: July 12, 2018 TIME: 11:03 AM PAGER: NM GASTRIC EMPTYING Observed: 07/12/2018 Status: F Source: [facility] 9:21 AM HEALTH SYSTEM REPOSITORY Performed at [facility] APPROVED BY: FELICIA DOVER [...] WATER. PROGRESS Observed: 07/12/2018 Status: COMPLETED Source: [place] 9:03 AM [facility] OTHER CAMPUS REPOSITORY HNO ID: [id number] Author: Caro CortezRtSandy Hackett Service: Nuclear Medicine Author Type: Assignment Agent Type: Progress Notes Filed: 07/12/2018 9:05 AM [...] No IV SITE: Inpatient - refer to LDA documentation POST EXAM PIV STATUS: Not applicable [...] safety can be found using this link: [email or web address] SIGNATURE: RT Marilin PATIENT NAME: Mark Serrano DATE: July 12, 2018 TIME: 9:04 AM PAGER/CONTACT #: PROGRESS Observed: 07/12/2018 Status: COMPLETED Source: [place] 8:10 AM CLINIC OTHER CAMPUS REPOSITORY HNO ID: [id number] Author: Maryanne Castillo Service: General Surgery Author [...] Therapy: Nasal Cannula IANDO: Date 07/11/18699 - 07/12/1865807/12/18699 - 07/13/18 06 Shift 7119-4556 3754-1875 7139-6688 24 Hour Total 1204-4493 2453-6077 3261-5134 24 Hour Total I N T A [...] RECTAL q 4 H PRN phenol 1 [place] (CHLORASEPTIC) 1 [place] MUCOUS MEMBRANE (TOPICAL MOUTH AND THROAT) q [...] Note: Added automatically from request for surgery [id number] - Bowel obstruction ([facility]) 07/07/2018 - SBO (small bowel obstruction) ([facility]) 07/07/2018 - Nicotine use disorder, F17.2 07/07/2018 - Hypertension - COPD (chronic obstructive pulmonary disease) ([facility]) 68 year old male with [...] questions or concerns Mon-Fri 6a-5p please page [phone]. After 5pm and on Weekends and Holidays, please page [phone]. BASIC PANEL Collected: 07/12/2018 Status: F Source: [facility] 2:20 AM HEALTH SYSTEM REPOSITORY TYPE CODE [...] Gap 8 Performed By: #### P8 #### [place] [address] MAGNESIUM BLOOD Collected: 07/12/2018 Status: F Source: [facility] 2:20 AM HEALTH SYSTEM REPOSITORY TYPE CODE TESTS RESULT OUT OF REFERENCE UNITS RANGE LAB MAG(LOINC) 1.6-2.6 mg/dL Magnesium Blood 2.0 Performed By: #### MAG #### [place] [address] PHOSPHORUS BLOOD Collected: 07/12/2018 Status: F Source: [facility] 2:20 AM HEALTH SYSTEM REPOSITORY TYPE CODE TESTS RESULT OUT OF REFERENCE UNITS RANGE LAB PHOS(LOINC 2.5-4.9 mg/dL ) Phosphorus Blood 3.5 Performed By: #### PHOS #### [place] [address] PROGRESS Observed: 07/11/2018 Status: COMPLETED Source: [place] 7:47 PM CLINIC OTHER CAMPUS REPOSITORY O ID: [id number] Author: Barbara Baldwin Service: Hospital Medicine Author [...] RECTAL q 4 H PRN phenol 1 [place] (CHLORASEPTIC) 1 [place] MUCOUS MEMBRANE (TOPICAL MOUTH AND THROAT) q [...] THERAPY NT Observed: 07/11/2018 Status: COMPLETED Source: [place] 2:19 PM CLINIC OTHER CAMPUS REPOSITORY HNO ID: [id number] Author: Balbir (Pt) Young Service: Physical Therapy Author Type: Physical Therapist Type: Therapy (PT/OT/Speech/Resp) Filed: 07/11/2018 2:26 PM Note Text: Physical Therapy Evaluation SERVICE DATE: 07/11/2018 SERVICE TIME: 1335 to 1402 ROOM: [place] [address] ([facility]) Recommended Discharge Disposition: Home Recommended [...] mobility-other;Unsteadiness on feet Interventions Provided: Evaluation;Therapeutic Activity (37224) $ Evaluation-Low (51784) Billed Units: 1 unit Therapeutic Activity (81371) Treatment Minutes: 10 1 unit Skilled Intervention(s): [...] and Moving Around Current Status (G8978): CJ (07/11/18 133) Mobility: Walking and Moving Around Goal Status (G8979): CI (07/11/18 133) Based on clinical assessment and the score [...] Vomiting Added automatically from request for surgery [id number] - Bowel obstruction (HCC) - SBO (small [...] Laterality Date - COLONOSCOP W/ OR W/O [facility] SPEC Colonoscopy x 4 - PAST SURGICAL HISTORY OF 2003 lower bowel surgery - PAST SURGICAL HISTORY OF dental surgery - REMOVAL OF TONSILS,<10 Y/O Tonsillectomy Patient Report: Identification verified x2, patient agreeable to therapy. Works in [employer], not a business, just something we do. Long time roommate recently, now former roommate's son lives with patient. Home Environment Patient Lives With: (friend) Assistance Available: roll grinder Entry To Home: Stairs;With Rail Number Of [...] ANES POST Observed: 07/11/2018 Status: COMPLETED Source: [place] 12:24 PM CLINIC OTHER CAMPUS REPOSITORY HNO ID: [id number] Author: Jose Juan Martinez MD Service: Anesthesiology [...] 11, 2018 TIME: 12:24 PM PAGER/CONTACT #: [phone] NUTRITION Observed: 07/11/2018 Status: COMPLETED Source: [place] 12:03 PM CLINIC OTHER CAMPUS REPOSITORY HNO ID: [id number] Author: Maris Andres) JUAN MANUEL Patrick Service: NST-Nutrition Support Team Author Type: Registered [...] syndrome ?as evidenced by 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 Intervention: Start NST [...] Recent Labs 07/11/18 0254 PREALB 13.6* Maris Patrick RD, LD, [facility] Pager: [phone] Increments: 3 NURSING PROG Observed: 07/11/2018 Status: COMPLETED Source: [place] 11:16 AM [facility] REPOSITORY HNO ID: [id number] Author: Felicitas CortezRn) Kody RN Service: Nursing Author Type: Registered Nurse Type: Nursing Progress Note Filed: 07/11/2018 11:17 AM Note Text: Dr. Sanders by to see patient at bedside, patient states he is passing gas PT ED Observed: 07/11/2018 Status: COMPLETED Source: [place] 11:06 AM [facility] REPOSITORY HNO ID: [id number] Author: Felicitas (Rn) Kody RN Service: Nursing [...] Signed By: Felicitas Gates RN In Department: [place] ENDO BRIEF OP NOT Observed: 07/11/2018 Status: COMPLETED Source: [place] 11:03 AM [facility] REPOSITORY HNO ID: [id number] Author: Geovanny Sanders Service: Gastroenterology Author Type: Physician Type: Brief Op Note Filed: 07/11/2018 11:06 AM Note Text: BRIEF OPERATIVE / PROCEDURE NOTE LOG ID: [id number] SURGERY/PROCEDURE DATE: 07/11/2018 INCISION/PROCEDURE START TIME: 10:33 AM INCISION CLOSE/PROCEDURE END TIME: 10:51 AM SURGEON(S)/PROCEDURALIST(S) AND STUDENT FINANCIAL AID MANAGER(S): Surgeon(s) and Role: * Geovanny Sanders - [...] PT ED Observed: 07/11/2018 Status: COMPLETED Source: [place] 9:09 AM [facility] REPOSITORY HNO ID: [id number] Author: Felicitas Ferris) Kody, RN Service: Nursing Author Type: Registered [...] GODINEZ PREOP Observed: 07/11/2018 Status: COMPLETED Source: [place] 9:03 AM [facility] REPOSITORY HNO ID: [id number] Author: Jose Juan Martinez MD Service: Anesthesiology [...] 0715 BP: 141/90 Pulse: 91 Resp: 16 16 16 16 Temp: 37.2 ?C (99 ?F) TempSrc: [...] Laterality Date - COLONOSCOP W/ OR W/O [facility] SPEC Colonoscopy x 4 - [...] (radiology procedure) INTRAVENOUS DIRECTED PRN Mojgan Ring (Battery Charger) Yuan [MAR Hold due to Transfer] acetaminophen 650 mg suppository (TYLENOL) 650 mg RECTAL q 4 H PRN Barbara Baldwin [DEC Hold due to Transfer] phenol 1 [place] (CHLORASEPTIC) 1 [place] MUCOUS MEMBRANE (TOPICAL MOUTH AND THROAT) q 2 H PRN Uday Valluri 1 [place] at 07/09/18 0851 [MAR Hold due to [...] SUBCUTANEOUS q 12 H Priti (Vianney) APRN. MarkPOLLUTION CONTROL ENGINEER 5,000 Units at 07/10/181919 [MAR Hold due to Transfer] 0.9% NaCl 3-5 mL 3-5 mL INTRAVENOUS q 12 H Priti (Vianney) APRN. MarkPOLLUTION CONTROL ENGINEER 3 mL at 07/07/18 0037 [MAR Hold due to Transfer] morphine 1-2 mg injection 1-2 mg INTRAVENOUS q 4 H PRN Priti (Electronics Engineering Technologist) APRN. MarkPOLLUTION CONTROL ENGINEER 1 mg at 07/07/18 0037 [MAR Hold due to Transfer] ipratropium-albuterol 3 mL nebulizer solution (DUONEB) 3 mL INHALATION q 4 H PRN Priti (Electronics Engineering Technologist) APRN. MarkPOLLUTION CONTROL ENGINEER 3 mL at 07/08/18 1556 [MAR Hold due to Transfer] pantoprazole 40 mg injection (PROTONIX) 40 mg INTRAVENOUS DAILY (6 AM) Gerson (Res) Hendry 40 mg at 07/11/18 0511 [MAR Hold [...] July 11, 2018 TIME: 9:03 AM CSN: [id number] CASE MANAGEM Observed: 07/11/2018 Status: COMPLETED Source: [place] 8:44 AM CLINIC OTHER CAMPUS REPOSITORY HNO ID: [id number] Author: Lalita CortezRn) DEYVI Ritter Service: Care Management Author Type: Registered [...] 11, 2018 TIME: 8:44 AM PAGER/CONTACT #: [phone] PROGRESS Observed: 07/11/2018 Status: COMPLETED Source: [place] 6:55 AM CLINIC OTHER [facility] REPOSITORY HNO ID: [id number] Author: Maryanne Castillo Service: General Surgery Author [...] Therapy: Room Air IANDO: Date 07/10/18699 - 07/11/1865807/11/18699 - 07/12/1859 Shift 2340-3397 1720-2584 1406-3612 24 Hour Total 3059-8784 0667-8977 9821-9625 24 Hour Total I N T A K E Shift Total O U T P U T Urine 5184 938 9222 Void (ml) 3538 425 7194 Tubes 700 700 Output (GI Feed/Drain 07/06/18 2230 Admission to Hospital Nasogastric Right Naris) 700 700 # of BMs Number of BMs 1 x 1 x Shift Total 6542 074 7672 Weight (kg) 44 44 43.2 43.2 43.2 [...] [MAR Hold due to Transfer] phenol 1 [place] (CHLORASEPTIC) 1 [place] MUCOUS MEMBRANE (TOPICAL MOUTH AND THROAT) q [...] mL 3-5 mL INTRAVENOUS q 12 H [MAR Hold due to Transfer] morphine 1-2 mg injection 1-2 mg INTRAVENOUS q 4 H PRN [MAR Hold due to Transfer] ipratropium-albuterol 3 [...] Note: Added automatically from request for surgery [id number] - Bowel obstruction (HCC) 07/07/2018 - SBO (small bowel obstruction) ([facility]) 07/07/2018 - Nicotine use disorder, F17.2 07/07/2018 - Hypertension - COPD (chronic obstructive pulmonary disease) ([facility]) 68 year old male with SBO, significant weight loss/malnutrition, 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 Assessment and plan discussed with attending: Dr. Willams ? SIGNATURE: Maryanne Castillo APRN.CNP PATIENT NAME: Mark Serrano DATE: July 11, 2018 TIME: 10:48 AM CONTACT: see below Emergency General Surgery Service Pager: For questions or concerns Mon-Wed 6a-5p please page [phone]. After 5pm and on Weekends and Holidays, please page [phone]. BASIC PANEL Collected: 07/11/2018 Status: F Source: [facility] 2:54 AM HEALTH SYSTEM REPOSITORY TYPE CODE [...] Gap 11 Performed By: #### P8 #### [place] [address] MAGNESIUM BLOOD Collected: 07/11/2018 Status: F Source: [facility] 2:54 AM HEALTH SYSTEM REPOSITORY TYPE CODE TESTS RESULT OUT OF REFERENCE UNITS RANGE LAB MAG(LOINC) 1.6-2.6 mg/dL Magnesium Blood 2.2 Performed By: #### MAG #### [place] [address] PHOSPHORUS BLOOD Collected: 07/11/2018 Status: F Source: [facility] 2:54 AM HEALTH SYSTEM REPOSITORY TYPE CODE TESTS RESULT OUT OF REFERENCE UNITS RANGE LAB PHOS(LOINC 2.5-4.9 mg/dL ) Phosphorus Blood 3.6 Performed By: #### PHOS #### [place] [address] PREALBUMIN Collected: 07/11/2018 Status: F Source: [facility] 2:54 AM HEALTH SYSTEM REPOSITORY TYPE CODE TESTS RESULT OUT OF REFERENCE UNITS RANGE LAB PAB(LOINC) 20.0-40.0 mg/dL Low Prealbumin 13.6 Performed By: #### PAB #### [place] [address] OPERATIVE NO Observed: 07/11/2018 Status: COMPLETED Source: [place] 12:00 AM CLINIC OTHER CAMPUS REPOSITORY HNO ID: [id number] Author: Geovanny Sanders Service: Gastroenterology Author Type: Physician Type: Operative Report Filed: 07/11/2018 6:23 PM Note Text: [facility] - Operative Report MARK SERRANO : 1950 AGE: 68. SEX: M PATIENT TYPE: I HOSP SVC: INT LOCATION: [facility] ATTENDING PHYSICIAN: BARBARA BALDWIN [facility] NUMBER: [id number] DATE OF SURGERY/PROCEDURE: 07/11/2018 INCISION/PROCEDURE START TIME: 10:33. INCISION CLOSE/PROCEDURE END TIME: 10:51. PREOPERATIVE DIAGNOSIS: See below POSTOPERATIVE DIAGNOSIS: SURGEON: Geovanny Sandesr MD STUDENT FINANCIAL AID MANAGER: Mino Petersen. SURGERY/PROCEDURE: Esophagogastroduodenoscopy with biopsies. ANESTHESIA: Monitored Anesthesia Care LOG ID: [id number]. PREOPERATIVE DIAGNOSES: 1. Nausea and vomiting. 2. [...] patient has recurrent symptoms. Geovanny Sanders MD [id number] /[id number] OPERATIVE NO Observed: 07/11/2018 Status: COMPLETED Source: [place] 12:00 AM [facility] OTHER CAMPUS REPOSITORY HNO ID: [id number] Author: Geovanny Sanders Service: Gastroenterology Author Type: Physician Type: Operative Report Filed: 07/20/2018 8:51 AM Note Text: [facility] - Operative Report MARK SERRANO : 1950 AGE: 68. SEX: M PATIENT TYPE: I HOSP SVC: INT LOCATION: [facility] ATTENDING PHYSICIAN: BARBARA BALDWIN CSN NUMBER: [id number] DATE OF SURGERY/PROCEDURE: 07/11/2018 INCISION/PROCEDURE START TIME: 10:33. INCISION CLOSE/PROCEDURE END TIME: 10:51. PREOPERATIVE DIAGNOSIS: See below POSTOPERATIVE DIAGNOSIS: See below SURGEON: Geovanny Sanders MD STUDENT FINANCIAL AID MANAGER: Mino Petersen. SURGERY/PROCEDURE: Esophagogastroduodenoscopy with biopsies. ANESTHESIA: Monitored Anesthesia Care LOG ID: [id number]. PREOPERATIVE DIAGNOSES: 1. Nausea and vomiting. 2. [...] patient has recurrent symptoms. Geovanny Sanders MD [id number] SURGICAL TISSUE EXAM Observed: 07/11/2018 Status: F Source: [facility] 12:00 AM HEALTH SYSTEM REPOSITORY Test performed at [address] [address] NAME: MARK SERRANO REQUESTING: GEOVANNY SANDERS M.D. COPY TO: BARBRAA BALDWIN FINAL DIAGNOSIS: STOMACH, BIOPSY - MILD [...] of 1 Performed By: #### SURG #### [facility] [address] [place] [address] PROGRESS Observed: 07/10/2018 Status: COMPLETED Source: [place] 6:04 PM CLINIC OTHER CAMPUS REPOSITORY HNO ID: [id number] Author: Barbara Baldwin Service: Hospital Medicine Author Type: Physician Type: Progress Notes Filed: 07/10/2018 10:31 PM Note Text: INTERNAL MEDICINE PROGRESS NOTE SERVICE DATE: 07/10/2018 SERVICE TIME: 6:05 PM ADMITTING PHYSICIAN: Dalia Santos Subjective CHIEF COMPLAINT: f/u medical issues listed below Current Facility-Administered Medications: Parenteral Nutrition - Adult INTRAVENOUS ONCE TPN (1800 START) iv contrast (radiology procedure) INTRAVENOUS DIRECTED PRN phenol 1 [place] (CHLORASEPTIC) 1 [place] MUCOUS MEMBRANE (TOPICAL MOUTH AND THROAT) q [...] (98.8 ?F) Oral 91 16 - - 07/09/18 2131 - - - - - - 44 kg (97 lb) 07/09/18 2130 - - - 76 16 96 % [...] UPPER GI W SMALL BOWEL SERIES (Order #[id number]) on 07/07/2018 Assessment/Plan 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 PROGRESS Observed: 07/10/2018 Status: COMPLETED Source: [place] 6:20 AM CLINIC OTHER CAMPUS REPOSITORY HNO ID: [id number] Author: Mojgan Ring (Battery Charger) Yuan Service: General Surgery Author Type: Nurse [...] 07/09/18699 - 07/10/1865807/10/18699 - 07/11/18 0659 Shift 3620-3274 8438-3162 9122-9123 24 Hour Total 1984-0226 5732-4228 4624-5377 24 Hour Total I N T A K E TPN/PPN 800 800 TPN 800 800 Shift Total 800 800 O U T P U T Urine 650 1 651 Void (ml) 650 650 Urine Not Saved 1 1 Tubes 002 587 0146 Output (GI Feed/Drain 07/06/182229 Admission to Hospital Nasogastric Right Naris) 971 441 5240 Shift Total 650 475 192 6380 Weight (kg) 43.5 44 44 44 44 44 44 44 MEDICATIONS Current Facility-Administered Medications: phenol 1 [place] (CHLORASEPTIC) 1 [place] MUCOUS MEMBRANE (TOPICAL MOUTH AND THROAT) q [...] Diagnosis Date Noted - Bowel obstruction ([facility]) 07/07/2018 - SBO (small bowel obstruction) ([facility]) 07/07/2018 - Nicotine use disorder, F17.2 07/07/2018 - Hypertension - COPD (chronic obstructive pulmonary disease) ([facility]) 68 year old male with [...] - CT chest ? SIGNATURE: Mojgan Bolden APRN.ACID BLEACHER PATIENT NAME: Mark Serrano DATE: July 10, 2018 TIME: 6:20 AM CONTACT: [id number] Emergency General Surgery Service Pager: For questions or concerns Mon-Wed 6a-5p please page [phone]. After 5pm and on Weekends and Holidays, please page [phone]. BASIC PANEL Collected: 07/10/2018 Status: F Source: [facility] 2:47 AM HEALTH SYSTEM REPOSITORY TYPE CODE [...] Gap 11 Performed By: #### P8 #### [place] [address] MAGNESIUM BLOOD Collected: 07/10/2018 Status: F Source: [facility] 2:47 AM HEALTH SYSTEM REPOSITORY TYPE CODE TESTS RESULT OUT OF REFERENCE UNITS RANGE LAB MAG(LOINC) 1.6-2.6 mg/dL Magnesium Blood 2.0 Performed By: #### MAG #### [place] [address] PHOSPHORUS BLOOD Collected: 07/10/2018 Status: F Source: [facility] 2:47 AM HEALTH SYSTEM REPOSITORY TYPE CODE TESTS RESULT OUT OF REFERENCE UNITS RANGE LAB PHOS(LOINC 2.5-4.9 mg/dL ) Phosphorus Blood 3.2 Performed By: #### PHOS #### [place] [address] PROGRESS Observed: 07/09/2018 Status: COMPLETED Source: [place] 3:06 PM CLINIC OTHER CAMPUS REPOSITORY O ID: [id number] Author: Christoph Capps Service: Gastroenterology Author Type: Physician Type: Progress Notes Filed: 07/09/2018 3:11 PM Note Text: CONSULT: GASTROENTEROLOGY SERVICE SERVICE DATE: 07/31/2017 SERVICE TIME: 3:06 PM SUBJECTIVE Chief complaint: 1. Persistent high NG output 2. 3. QUINAULT: Nausea is better; does not like NG tube Current Facility-Administered Medications: phenol 1 [place] (CHLORASEPTIC) 1 [place] MUCOUS MEMBRANE (TOPICAL MOUTH AND THROAT) q 2 H PRN Uday Valluri 1 [place] at 07/09/18 0851 Parenteral Nutrition - Adult [...] mg INTRAVENOUS q 4 H PRN Geovanny (Dmitriy) MD Tasha 5 mg at 07/08/18 1823 heparin 5,000 Units injection 5,000 Units SUBCUTANEOUS q 12 H Priti (Vianney) APRN. MarkPOLLUTION CONTROL ENGINEER 5,000 Units at 07/09/18 0858 0.9% NaCl 3-5 mL 3-5 mL INTRAVENOUS q 12 H Priti (Vianney) APRN. MarkPOLLUTION CONTROL ENGINEER 3 mL at 07/07/18 0037 morphine 1-2 mg injection 1-2 mg INTRAVENOUS q 4 H PRN Priti (Vianney) APRN. MarkPOLLUTION CONTROL ENGINEER 1 mg at 07/07/18 0037 ipratropium-albuterol 3 mL nebulizer solution (DUONEB) 3 mL INHALATION q 4 H PRN Priti (Vianney) APRN. MarkPOLLUTION CONTROL ENGINEER 3 mL at 07/08/18 1556 pantoprazole 40 mg injection (PROTONIX) 40 mg INTRAVENOUS DAILY (6 AM) Gerson Izaguirre Hendry 40 mg at 07/09/18 0503 0.9% NaCl 10 mL 10 mL INTRAVENOUS q 12 H H Palmer Heller 10 mL at 07/09/18 0857 0.9% NaCl 20 mL 20 mL INTRAVENOUS PRN Stefan Heller ALLERGIES Allergen Reactions - Penicillin Mental [...] 2. Continue NG tube 3. SIGNATURE: Christoph Capps MD PATIENT NAME: Mark Serrano DATE: 07/09/18 TIME: 3:06 PM MOBILE: [phone] PROGRESS Observed: 07/09/2018 Status: COMPLETED Source: [place] 9:45 AM CLINIC OTHER CAMPUS REPOSITORY HNO ID: [id number] Author: Uday Jo Service: Hospital Medicine Author [...] PAGER: PROGRESS Observed: 07/09/2018 Status: COMPLETED Source: [place] 6:24 AM CLINIC OTHER CAMPUS REPOSITORY HNO ID: [id number] Author: Mojgan Ring (Battery Charger) Yuan Service: General Surgery Author Type: Nurse Specialist Type: Progress Notes Filed: 07/09/2018 10:05 AM Note Text: Emergency General Surgery Progress Note SERVICE DATE: 07/09/2018629 SUBJECTIVE: Reports nausea, LUQ tenderness Tolerating diet [...] Therapy: Nasal Cannula IANDO: Date 07/08/18699 - 07/09/1865807/09/18699 - 07/10/18 0659 Shift 8245-5308 1512-1791 6023-2434 24 Hour Total 2166-3777 4636-6697 4231-1558 24 Hour Total I N T A K E TPN/PPN 800 800 TPN 800 800 Shift Total 800 800 O U T P U T Urine 175 100 275 Void (ml) 175 100 275 Tubes 313 843 5815 Output (GI Feed/Drain 07/06/18 2230 Admission to Hospital Nasogastric Right Naris) 507 982 1806 Shift Total 425 803 902 6512 Weight (kg) 42.8 43.5 43.5 43.5 43.5 [...] - COPD (chronic obstructive pulmonary disease) ([facility]) 68 year old male with [...] attending: Dr. Guerrero. ? SIGNATURE: Mojgan Bolden APRN.ACID BLEACHER PATIENT NAME: Mark Serrano DATE: July 09, 2018 TIME: 6:24 AM CONTACT: [id number] Emergency General Surgery Service Pager: For questions or concerns Mon-Fri 6a-5p please page [phone]. After 5pm and on Weekends and Holidays, please page [phone]. BASIC PANEL Collected: 07/09/2018 Status: F Source: [facility] 3:36 AM HEALTH SYSTEM REPOSITORY TYPE CODE [...] Gap 9 Performed By: #### P8 #### [facility] [address] [place], [place] [address] MAGNESIUM BLOOD Collected: 07/09/2018 Status: F Source: [facility] 3:36 AM HEALTH SYSTEM REPOSITORY TYPE CODE TESTS RESULT OUT OF REFERENCE UNITS RANGE LAB MAG(LOINC) 1.6-2.6 mg/dL Magnesium Blood 1.8 Performed By: #### MAG #### [facility] [address] [place], [place] [address] PHOSPHORUS BLOOD Collected: 07/09/2018 Status: F Source: [facility] 3:36 AM HEALTH SYSTEM REPOSITORY TYPE CODE TESTS RESULT OUT OF REFERENCE UNITS RANGE LAB PHOS(LOINC 2.5-4.9 mg/dL ) Phosphorus Blood 3.5 Performed By: #### PHOS #### [facility] [address] [place] [address] ABDOMEN 1 VIEW Observed: 07/08/2018 Status: F Source: [facility] 4:40 PM HEALTH SYSTEM REPOSITORY Performed at [facility] APPROVED BY: KAMRAN ALSTON [...] NURSING PROG Observed: 07/08/2018 Status: COMPLETED Source: [place] 3:58 PM CLINIC OTHER CAMPUS REPOSITORY HNO ID: [id number] Author: Vera CortezRn) DEYVI Dhillon Service: Nursing Author Type: Registered Nurse Type: Nursing Progress Note Filed: 07/08/2018 4:00 PM Note Text: Patient stating that zofran has not been helping his nausea. NG with 250 out from 7a-3p. Now with blood tinged drainage from NG. Surgery paged regarding these findings. CASE MGT INIT Observed: 07/08/2018 Status: COMPLETED Source: [facility] 3:43 PM CLINIC OTHER CAMPUS REPOSITORY HNO ID: [id number] Author: Lalita (Rn) DEYVI Ritter Service: Care Management Author Type: Registered Nurse Type: Care Mgt Initial Assessment Filed: 07/08/2018 3:47 PM Note Text: CARE MANAGEMENT: ASSESSMENT AND DISCHARGE PLAN SERVICE DATE: 07/08/2018 SERVICE TIME: 3:43 PM PRIMARY CARE PHYSICIAN: Jacqui Cadet MD ADMISSION STATUS: Inpatient Needs Prior to Discharge: To Be Determined;Home Care Order;OT/PT Evaluation MEDICAL: Patient/Line Service Supervisor Stated Goals: To improve my functional status To return home to life as it was Health Insurance: MEDICARE A AND B None Health Issues Impacting Discharge Plan: None Last Admission Date: none Is this Within the Past 30 days? 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 No needs at this time. Currently on TPN and LIWS with corpak placed. No weekend DC planned. Will follow for any transitional needs SIGNATURE: Lalita Ritter RN PATIENT NAME: Mark Serrano DATE: July 08, 2018 TIME: 3:43 PM PAGER/CONTACT #: [phone] HGB A1C Collected: 07/08/2018 Status: F Source: [facility] 2:15 PM HEALTH SYSTEM REPOSITORY TYPE CODE TESTS RESULT OUT OF RANGE REFERENCE UNITS LAB A1C5(LOINC) 4.2-6.3 % Hgb A1c 5.9 Result Comment: Method is National Glycohemoglobin Standardization Program (NGSP) compliant. LAB ESAVG(LOINC) mg/dl Est. Avg Glucose 123 Performed By: #### HA1C #### [facility] [address] [place] [address] PROGRESS Observed: 07/08/2018 Status: COMPLETED Source: [place] 12:14 PM CLINIC OTHER CAMPUS REPOSITORY HNO ID: [id number] Author: Uday Jo Service: Hospital Medicine Author [...] PAGER: NUTRITION Observed: 07/08/2018 Status: COMPLETED Source: [place] 12:10 PM CLINIC OTHER CAMPUS REPOSITORY HNO ID: [id number] Author: Maris Patrick RD Service: NST-Nutrition Support [...] syndrome as evidenced by 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 Intervention: Start NST [...] Recent Labs 07/08/18 0530 CRP 0.31* Maris Patrick RD, LD, [facility] Pager: [phone] Increments: 3 PROGRESS Observed: 07/08/2018 Status: COMPLETED Source: [place] 6:34 AM CLINIC OTHER CAMPUS REPOSITORY HNO ID: [id number] Author: Lisa ([facility]) Yuan Service: General Surgery Author Type: Nurse [...] IANDO: Date 07/07/18699 - 07/08/1865807/08/18699 - 07/09/18 06 Shift 8557-3763 3794-0409 2726-4967 24 Hour Total 2064-4682 2325-1187 1119-5470 24 Hour Total I N T A [...] - COPD (chronic obstructive pulmonary disease) ([facility]) 68 year old male with [...] July 08, 2018 TIME: 6:35 AM CONTACT: [id number] Emergency General Surgery Service Pager: For questions or concerns Mon-Fri 6a-5p please page [phone]. After 5pm and on Weekends and Holidays, please page [phone]. HEMOGRAM/DIFF Collected: 07/08/2018 Status: F Source: [facility] 5:30 AM HEALTH SYSTEM REPOSITORY TYPE CODE [...] 0.57 LAB MONON(LOIN 0.30-0.82 thou/cmm C) Abs. Todd 0.33 LAB EOSN(LOINC 0.04-0.54 thou/cmm ) Abs. Eosin 0.06 LAB BASON(LOIN 0.01-0.08 thou/cmm C) Abs. Baso 0.02 Performed By: #### CBCD1 #### [place] [address] BASIC PANEL Collected: 07/08/2018 Status: F Source: [facility] 5:30 AM HEALTH SYSTEM REPOSITORY TYPE CODE [...] Blood 375 Performed By: #### P8 #### [place] [address] MAGNESIUM BLOOD Collected: 07/08/2018 Status: F Source: [facility] 5:30 AM HEALTH SYSTEM REPOSITORY TYPE CODE TESTS RESULT OUT OF REFERENCE UNITS RANGE LAB MAG(LOINC) 1.6-2.6 mg/dL Magnesium Blood 2.4 Performed By: #### MAG #### [place] [address] PHOSPHORUS BLOOD Collected: 07/08/2018 Status: F Source: [facility] 5:30 AM HEALTH SYSTEM REPOSITORY TYPE CODE TESTS RESULT OUT OF REFERENCE UNITS RANGE LAB PHOS(LOINC 2.5-4.9 mg/dL ) Phosphorus Blood 4.6 Performed By: #### PHOS #### [facility] [address] [place], [place] [address] TRIGLYCERIDE BLOOD Collected: 07/08/2018 Status: F Source: [facility] 5:30 AM HEALTH SYSTEM REPOSITORY TYPE CODE TESTS RESULT OUT OF REFERENCE UNITS RANGE LAB TRIG(LOINC 0-149 mg/dL ) Triglyceride High Blood 327 Result Comment: < 200 Desirable Result invalid if not a fasting specimen. Performed By: #### TRIG #### [facility] [address] [place] [address] CRP Collected: 07/08/2018 Status: F Source: [facility] 5:30 AM HEALTH SYSTEM REPOSITORY TYPE CODE TESTS RESULT OUT OF RANGE REFERENCE UNITS LAB CRP3(LOINC) 0.00-0.30 mg/dL High CRP 0.31 Performed By: #### CRP3 #### [facility] [address] [place], [place] [address] CONSULT Observed: 07/07/2018 Status: COMPLETED Source: [place] 2:51 PM CLINIC OTHER CAMPUS REPOSITORY HNO ID: [id number] Author: Kay Cummings Service: Gastroenterology Author Type: [...] Laterality Date - COLONOSCOP W/ OR W/O [facility] SPEC Colonoscopy x 4 - [...] possibility of ?SMA syndrome CT abd/pelvis at [facility]: Distended stomach and proximal duodenum with [...] 1236 PROCEDURE Observed: 07/07/2018 Status: COMPLETED Source: [place] 2:11 PM CLINIC OTHER CAMPUS REPOSITORY HNO ID: [id number] Author: Christina (Rn) Geoffrey Gordillo RN Service: PICC Team Author Type: Registered Nurse Type: Procedures Filed: 07/07/2018 2:16 PM Note Text: PICC NURSE INSERTION NOTE DATE OF PROCEDURE: July 07, 2018 TIME OF PROCEDURE: 1325 ORDERING PHYSICIAN: arron INFORMED CONSENT: Obtained per hospital policy. INDICATION FOR LINE PLACEMENT: PH/Osmolality Poor veins/circulatory system CONDITION OF LINE PLACEMENT: Sterile PRIMARY PROCEDURALIST: Christina Gordillo RN STUDENT FINANCIAL AID MANAGER: Dena Phillip RN PRE-PROCEDURE REVIEW ALLERGIES Allergen [...] Completed Christina Gordillo RN CATHETER PLACEMENT Brand: bard Lot: [id number] Number of Lumens: 2 Type of PICC: Power Injectable PICC Lumen Size: 5 Peruvian PLACEMENT TECHNIQUE Lidocaine: Yes. Strength: 1% Volume [...] wire Patient Education Materials: [facility] Insertion Checklist QUESTIONS or PROBLEMS: Call [phone] SIGNATURE: Christina Gordillo RN PATIENT NAME: Mark Serrano DATE: July 07, 2018 TIME: 2:11 PM PAGER/CONTACT PHONE: PROGRESS Observed: 07/07/2018 Status: COMPLETED Source: [place] 1:44 PM CLINIC OTHER CAMPUS REPOSITORY HNO ID: [id number] Author: Uday Jo Service: Hospital Medicine Author [...] PT ED Observed: 07/07/2018 Status: COMPLETED Source: [place] 1:39 PM CLINIC OTHER CAMPUS REPOSITORY HNO ID: [id number] Author: Dena (Rn) DEYVI Phillip Service: PICC Team Author Type: Registered Nurse Type: Patient Education Filed: 07/07/2018 1:41 PM Note Text: PATIENT EDUCATION TOPIC: PROCEDURE / SURGERY: Procedure/Surgery: PICC Insertion PATIENT NAME: Mark Serrano PATIENT LOCATION: [place] [address] [address]* READINESS TO LEARN COGNITIVE ABILITY: Alert and [...] Line Book SUPPLEMENTAL MATERIAL PROVIDED TO PATIENT: [facility] PICC information brochure and Catheter Associated Bloodstream Infections Fact sheet REFERRAL (RECOMMENDATION): None Electronically Signed By: Dena Phillip RN UGI W/SBS INCL Observed: 07/07/2018 Status: F Source: [facility] ESOPHAGUS 1:16 PM HEALTH SYSTEM REPOSITORY Performed at [facility] APPROVED BY: Choco Méndez MD EXAM TITLE: UGI W/SBS INCL ESOPHAGUS DATE: 07/07/2018 08:56 COMPARISON: Outside CT study performed 07/06/2018 CLINICAL INDICATION/HISTORY: Abdominal pain, nausea, diarrhea, history of Crohn's disease and prior bowel resections TECHNIQUE: Upper GI and small bowel follow-through. 18 images were obtained. 1.7 minutes of fluoroscopy time utilized. FINDINGS: Initial bilingual interpreter film demonstrates a nonspecific bowel gas pattern. [...] syndrome. NUTRITION Observed: 07/07/2018 Status: COMPLETED Source: [place] 11:20 AM [facility] REPOSITORY [facility] ID: [id number] Author: Maris Patrick RD Service: NST-Nutrition Support [...] syndrome as evidenced by significant wt loss captain waiter, ongoing severe nausea/vomiting Intervention: Start NST for [...] Laterality Date - COLONOSCOP W/ OR W/O [facility] SPEC Colonoscopy x 4 - PAST SURGICAL HISTORY OF 2003 lower bowel surgery - PAST SURGICAL HISTORY OF dental surgery - REMOVAL OF TONSILS,<12 Y/O Tonsillectomy Current Diet Order DIET NPO with NGT Lines and Drains: Peripheral 07/06/18 2330 Admission to Hospital Left Antecubital 20 Gauge (Active) GI Feed/Drain 07/06/18 2230 Admission to Hospital Nasogastric Right Naris (Active) [...] Resting Metabolic Rate: 1139 Estimated kilocalorie needs: 6768-9636 kilocalories determined by 25-30 kcal/kg Estimated protein [...] 20 mL INTRAVENOUS PRN Date 07/06/18699 - 07/07/18 0659 07/07/18 07 - 07/08/18 0659 Shift 3444-9335 0641-0938 1922-9173 24 Hour Total 9876-1315 7050-6713 6480-1883 24 Hour Total I N T A [...] July 07, 2018 TIME: 11:20 AM PAGER: [phone] HISTORY PHYSICAL Observed: 07/07/2018 Status: COMPLETED Source: [place] 11:10 AM CLINIC OTHER CAMPUS REPOSITORY HNO ID: [id number] Author: Jacque Ferris) DEYVI Meek Service: PICC Team Author Type: Registered Nurse Type: HANDP Filed: 07/07/2018 11:11 AM Note Text: PICC/VASCULAR ACCESS PROGRESS NOTE SERVICE DATE: 07/07/2018 SERVICE TIME: [address] Gomez concerning GFR=32. [place] [address] PICC. SIGNATURE: Jacque Meek RN PATIENT NAME: Mark Serrano DATE: July 07, 2018 TIME: 11:10 AM PAGER/CONTACT #: [phone] CONSULT PROG Observed: 07/07/2018 Status: COMPLETED Source: [place] 7:00 AM CLINIC OTHER CAMPUS REPOSITORY HNO ID: [id number] Author: Maryanne Castillo Service: General Surgery Author [...] Therapy: Nasal Cannula IANDO: Date 07/06/18699 - 07/07/1865807/07/18699 - 07/08/1859 Shift 5093-2203 4208-2688 6635-3380 24 Hour Total 5932-9931 8783-6254 0045-8763 24 Hour Total I N T A [...] - COPD (chronic obstructive pulmonary disease) ([facility]) 68 year old male with [...] RNF. HEMOGRAM Collected: 07/07/2018 Status: F Source: [facility] 4:10 AM HEALTH SYSTEM REPOSITORY TYPE CODE [...] MPV 10.7 Performed By: #### CBC1 #### [facility] [address] [place], [place] [address] BASIC PANEL Collected: 07/07/2018 Status: F Source: [facility] 4:10 AM HEALTH SYSTEM REPOSITORY TYPE CODE [...] Gap 12 Performed By: #### P8 #### [place] [address] MAGNESIUM BLOOD Collected: 07/07/2018 Status: F Source: [facility] 4:10 AM HEALTH SYSTEM REPOSITORY TYPE CODE TESTS RESULT OUT OF REFERENCE UNITS RANGE LAB MAG(LOINC) 1.6-2.6 mg/dL Magnesium Blood 1.7 Performed By: #### MAG #### [place] [address] PHOSPHORUS BLOOD Collected: 07/07/2018 Status: F Source: [facility] 4:10 AM HEALTH SYSTEM REPOSITORY TYPE CODE TESTS RESULT OUT OF REFERENCE UNITS RANGE LAB PHOS(LOINC 2.5-4.9 mg/dL ) Phosphorus Blood 4.4 Performed By: #### PHOS #### [place] [address] NURSING PROG Observed: 07/07/2018 Status: COMPLETED Source: [place] 2:37 AM CLINIC OTHER CAMPUS REPOSITORY O ID: [id number] Author: Marva (Rn) Jose Juan RN Service: (none) Author Type: Registered Nurse Type: Nursing Progress Note Filed: 07/07/2018 2:39 AM Note Text: Nursing Progress Note Patient Name: Mark Serrano Patient Location: [id number]/[facility]3583-332* Daily Note: POLLUTION CONTROL ENGINEER Priti ordered to advance NG tube approx 1in. Pt tolerated well. Priti also notified of pts NG output of 700. Will continue to monitor This note was completed by: Marva Manzano RN CHEST 1 VIEW Observed: 07/07/2018 Status: F Source: [facility] 1:37 AM HEALTH SYSTEM REPOSITORY Performed at [facility] APPROVED BY: LETI STANTON [...] unremarkable. CONSULT Observed: 07/07/2018 Status: COMPLETED Source: [place] 12:49 AM CLINIC OTHER CAMPUS REPOSITORY HNO ID: [id number] Author: Sg Guerrero Service: General Surgery Author [...] Laterality Date - COLONOSCOP W/ OR W/O [facility] SPEC Colonoscopy x 4 - [...] H PRN ipratropium-albuterol 3 mL nebulizer solution (FreeverB) 3 mL INHALATION q 4 H PRN [...] questions or concerns Mon-Fri 6a-5p please page [phone]. After 5pm and on Weekends and Holidays, please page [phone] if in ICU or [phone] if on RNF. Discussed with Dr. Yaneli [...] will try to obtain these from his [facility]. Sg Guerrero MD 1:09 PM 07/05/18 EKG (AK,AV,EU,FV,HL,GILES,MM,SP) Observed: Status: F Source: [place] 07/07/2018 12:29 [facility] OTHER [facility] REPOSITORY NAME : MARK SERRANO PID : [id number] : 1950 Gender : Male Race : ORD : [id number] Procedure Date : Jul 07 2018 00:29 [...] ms QTC Calculation(Bezet) : 429 ms P Adrian : 86 degrees R Adrian : -72 degrees T Adrian : 75 degrees Test Reason : Check QT Location : 71 : 7100 [id number] Overread By : MD Paniagua Vinay Editted By : MD Paniagua Vinay Referred By : PRITI MEAD Acquired by : Leonor Glover HISTORY PHYSICAL Observed: 07/07/2018 Status: COMPLETED Source: [place] 12:02 AM [facility] REPOSITORY HNO ID: [id number] Author: Priti (Vianney) GOKUL Mead.VIANNEY Service: Hospital Medicine Author Type: Nurse Practitioner Type: HANDP Filed: 07/07/2018 12:48 AM Note Text: Attestation signed by Aj Pro at 07/07/2018 12:56 AM Seen and examined by me. Agree with SAND CASTER APPRENTICE. The patient will SBO likely needs to [...] After 7pm, please call cross cover pager #[phone] Subjective CHIEF COMPLAINT: Abdominal Pain HPI: This [...] Laterality Date - COLONOSCOP W/ OR W/O [facility] SPEC Colonoscopy x 4 - [...] EMERGENCY DEPARTMENT Observed: 07/06/2018 Status: F Source: [place] SUMMARY 11:44 PM [facility] REPOSITORY [facility] Medical Records Department [address] [place] [address] Emergency Department Summary 07/06/18 1642 MR#: [id number] Acct: [id number] Name: MARK SERRANO Rep #: [id number] : 1950 68 From: Channing Manuel PCP: [...] Crohn's disease also. Surgery was done in [place]. Does not follow general surgeon. No other [...] tertiary center secondary to this. Spoke with [facility] excepted to surface Dr. Santos. Patient creatinine is chronic, however this is slightly more elevated than previous range from 1.7-2.0. He is given IV fluids. Treatment Plan: [] Disposition: Transfer [facility] Impression: 1. Abdominal pain 2. Small bowel obstruction 3. Possible SMA syndrome 4. Chronic kidney disease This note was generated with SocialBroation software. 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 Call [facility] ([phone]) or report to the closest Emergency Room. Call 911 if necessary. 07/06/18 2344 <Electronically signed by Channing Manuel> Date Channing Manuel Cosigner Signature (If Indicated): Date CC: Jalen Rodríguez MD ABDOMEN SINGLE VIEW Observed: 07/06/2018 Status: F Source: [place] (PORTABLE) 6:43 PM [facility] REPOSITORY [facility] Imaging Services [address] [place] [id number] Abdomen Single View (Portable) MR#: [id number] Acct: [id number] Name: MARK SERRANO Rep #: [id number] : 1950 M 68 From: Shanna Aguillon MD PCP: Jalen Rodríguez MD, Chi Status: REG ER Study: Abdomen Single View (Portable) Date of Exam: 07/06/18 Exam# [id number] Ordering Dr: Channing Ruiz DO STUDY: X-RAY [...] , CC: Jalen Rodríguez MD; Channing Ruiz Record Tabulating Clerk: Signed LACTIC ACID Collected: 07/06/2018 Status: F Source: [place] 6:35 PM [facility] REPOSITORY TYPE CODE TESTS RESULT OUT OF RANGE REFERENCE UNITS LAB L503.6005 0.4-2.0 mmol/L Normal LACTIC ACID 1.0 Performed By: #### L503.6005 #### [facility] Laboratory [address] [place], [address] ABDOMEN/PELVIS WITHOUT Observed: 07/06/2018 Status: F Source: [place] CONT 4:42 PM [facility] REPOSITORY [facility] Imaging Services [address] [place] [address] Abdomen/Pelvis without Cont MR#: [id number] Acct: [id number] Name: MARK SERRANO Rep #: [id number] : 1950 M 68 From: Shanna Aguillon MD PCP: Jalen Rodríguez MD, Chi Status: REG ER Study: Abdomen/Pelvis without Cont Date of Exam: 07/06/18 Exam# [id number] Ordering Dr: Channing Ruiz DO STUDY: CT [...] , CC: Jalen Rodríguez MD; Channing Ruiz Record Tabulating Clerk: Signed CBC W/DIFF, AUTOMATED Collected: 07/06/2018 Status: F Source: [place] 4:37 PM [facility] REPOSITORY TYPE CODE TESTS RESULT OUT OF [...] Lymph 0.63 Performed By: #### L100.0100 #### [facility] Laboratory [address] [place], [address] COMPREHENSIVE METABOLIC Collected: 07/06/2018 Status: F Source: [facility] 4:37 PM [facility] REPOSITORY TYPE CODE TESTS RESULT OUT OF [...] 10 Performed By: #### L500.4050, L501.2450 #### [facility] Laboratory [address] [place], [address] LIPASE Collected: 07/06/2018 Status: F Source: [place] 4:37 PM [facility] REPOSITORY TYPE CODE TESTS RESULT OUT OF RANGE REFERENCE UNITS LAB L501.2450 73-393 U/L Normal LIPASE 390 Performed By: #### L500.4050, L501.2450 #### [facility] [address] [place], [address] HOSP Observed: 07/06/2018 Status: COMPLETED Source: [place] 12:00 AM CLINIC OTHER CAMPUS REPOSITORY Patient:Mark Serrano MRN: <[id number]> Height:5' 5(1.651 m) Weight:95 lb 3.8 oz [...] acetaminophen 650 mg suppository (TYLENOL) phenol 1 [place] (CHLORASEPTIC) fluticasone-vilanterol 100-25 mcg/dose 1 Inhalation (BREO [...] [I10] COPD (chronic obstructive pulmonary disease) ([facility]) [J44.9] Bowel obstruction ([facility]) [K56.609] SBO (small bowel obstruction) ([facility]) [K56.609] Nicotine use disorder, F17.2 [F17.200] Vomiting [R11.10] Allergies: Penicillin Date Verified: 07/11/18 Lab Values Lab Value Units Date High Low POTA* 3.9 mEq/L 07/11/2018 5.1 3.5 VALENTÍN* 31.8 % 07/08/2018 51.0 40.1 Progress Notes (): Priti Mead, VIANNEY, METAL BALER.VIANNEY 07/07/2018 12:48 AM Attested Attestation signed by Aj Pro at 07/07/2018 12:56 AM Seen and examined by me. Agree with SAND CASTER APPRENTICE. The patient will SBO likely needs to [...] After 7pm, please call cross cover pager #[phone] Subjective CHIEF COMPLAINT: Abdominal Pain HPI: This [...] Laterality Date - COLONOSCOP W/ OR W/O [facility] SPEC Colonoscopy x 4 - [...] Laterality Date - COLONOSCOP W/ OR W/O [facility] SPEC Colonoscopy x 4 - [...] questions or concerns Mon-Fri 6a-5p please page [phone]. After 5pm and on Weekends and Holidays, please page [phone] if in ICU or [phone] if on RNF. Discussed with Dr. Yaneli [...] will try to obtain these from his [facility]. Sg Guerrero MD 1:09 PM 07/05/18 Previous Version Marva Manzano RN, RN 07/07/2018 2:39 AM Signed Nursing Progress Note Patient Name: Mark Serrano Patient Location: [id number]* Daily Note: VIANNEY Russell ordered to advance NG tube approx 1in. Pt tolerated well. Priti also notified of pts NG output of 700. Will continue to monitor This note was completed by: DEYVI Birch, METAL BALER.POLLUTION CONTROL ENGINEER 07/07/2018 1:28 PM Addendum Emergency General Surgery [...] IANDO: Date 07/06/18 07 - 07/07/18 0659 07/07/18 07 - 07/08/18 0659 Shift 1046-0076 5666-3422 4632-3840 24 Hour Total 1992-3708 5239-5662 7734-0708 24 Hour Total I N T A [...] 07/07/2018 - SBO (small bowel obstruction) ([facility]) 07/07/2018 - Hypertension - COPD (chronic obstructive [...] questions or concerns Mon-Fri 6a-5p please page [phone]. After 5pm and on Weekends and Holidays, please page [phone] if in ICU or [phone] if on RNF. Previous Version Jacque Meek RN, RN 07/07/2018 11:11 AM Signed PICC/VASCULAR ACCESS PROGRESS NOTE SERVICE DATE: 07/07/2018 SERVICE TIME: [id number] Gomez concerning GFR=32. OK [address] PICC. 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, ongoing severe nausea/vomiting Intervention: Start NST for [...] Laterality Date - COLONOSCOP W/ OR W/O [facility] SPEC Colonoscopy x 4 - PAST SURGICAL HISTORY OF 2004 lower bowel surgery - PAST SURGICAL HISTORY OF dental surgery - REMOVAL OF TONSILS,<12 Y/O Tonsillectomy Current Diet Order DIET NPO with NGT Lines and Drains: Peripheral 07/06/18 2330 Admission to Hospital Left Antecubital 20 Gauge (Active) GI Feed/Drain 07/06/18 2230 Admission to Hospital Nasogastric Right Naris (Active) [...] Resting Metabolic Rate: 1139 Estimated kilocalorie needs: 5708-9334 kilocalories determined by 25-30 kcal/kg Estimated protein [...] 07/06/18699 - 07/07/1865807/07/18699 - 07/08/18 0659 Shift 8043-7829 9719-4671 9873-1094 24 Hour Total 3434-1341 4134-7534 5264-5300 24 Hour Total I N T A [...] July 07, 2018 TIME: 11:20 AM PAGER: [phone] Dena Phillip, RN, RN 07/07/2018 1:41 PM Signed PATIENT EDUCATION TOPIC: PROCEDURE / SURGERY: Procedure/Surgery: PICC Insertion PATIENT NAME: Mark Serrano PATIENT LOCATION: [place] [address] [address]* READINESS TO LEARN COGNITIVE ABILITY: Alert and [...] Line Book SUPPLEMENTAL MATERIAL PROVIDED TO PATIENT: [facility] PICC information brochure and Catheter Associated Bloodstream Infections Fact sheet REFERRAL (RECOMMENDATION): None Electronically Signed By: DEYVI Barnes MD 07/07/2018 1:45 PM Signed Pt [...] 2018 TIME OF PROCEDURE: 1325 ORDERING PHYSICIAN: awender INFORMED CONSENT: Obtained per hospital policy. INDICATION FOR LINE PLACEMENT: PH/Osmolality Poor veins/circulatory system CONDITION OF LINE PLACEMENT: Sterile PRIMARY PROCEDURALIST: Christina Gordillo RN STUDENT FINANCIAL AID MANAGER: Dena Phillip RN PRE-PROCEDURE REVIEW ALLERGIES Allergen [...] Time Out: YES Sign Out Discussion: Completed Chrsitina Gordillo RN CATHETER PLACEMENT Brand: [employer] Lot: [id number] Number of Lumens: 2 Type of PICC: Power Injectable PICC Lumen Size: 5 Peruvian PLACEMENT TECHNIQUE Lidocaine: Yes. Strength: 1% Volume [...] wire Patient Education Materials: Placed in chart [facility] Line Insertion Checklist QUESTIONS or PROBLEMS: Call [phone] SIGNATURE: Christina Gordillo RN PATIENT NAME: Mark [...] Laterality Date - COLONOSCOP W/ OR W/O [facility] SPEC Colonoscopy x 4 - [...] possibility of ?SMA syndrome CT abd[facility]pelvis at [facility]: Distended stomach and proximal duodenum with [...] 07, 2018 TIME: 2:51 PM PAGER/CONTACT #: [phone] Mojagn Bolden, METAL BALER.ACID BLEACHER 07/08/2018 10:55 AM Signed Emergency General Surgery [...] 07/07/18699 - 07/08/1865807/08/18699 - 07/09/18 0659 Shift 9183-5192 2778-3647 6493-6661 24 Hour Total 1575-8535 3351-7058 7371-0270 24 Hour Total I N T A [...] 07/07/2018 - SBO (small bowel obstruction) ([facility]) 07/07/2018 - Nicotine use disorder, F17.2 07/07/2018 - Hypertension - COPD (chronic obstructive pulmonary disease) ([facility]) 68 year old male with SBO, significant weight loss/malnutrition, concern for SMA syndrome - Medical management per primary - Cont NG LIWS - Continue TPN - No acute surgical intervention at this point - May need EGD to rule out neoplasm, Feeding tube may be needed 0800 Assessment and plan discussed with attending: Dr. Guerrero. SIGNATURE: Mojgan Bolden APRN.ACID BLEACHER PATIENT NAME: Mark Serrano DATE: July 08, 2018 TIME: 6:35 AM CONTACT: [id number] Emergency General Surgery Service Pager: For questions or concerns Mon-Fri 6a-5p please page [phone]. After 5pm and on Weekends and Holidays, please page [phone]. Maris Patrick, JUAN MANUEL, LD, RD 07/08/2018 12:20 PM Attested Attestation signed by Stefan Helelr at 07/08/2018 4:39 PM Discussed with the [...] syndrome as evidenced by 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 Intervention: Start NST [...] 0530 CRP 0.31* Maris Patrick, RD, LD, [facility] Pager: [phone] Increments: 3 Uday Jo MD 07/08/2018 12:26 [...] To Be Determined;Home Care Order;OT/PT Evaluation MEDICAL: Patient/Line Service Supervisor Stated Goals: To improve my functional status To return home to life as it was Health Insurance: MEDICARE A AND B None Health Issues Impacting Discharge Plan: None Last Admission Date: none Is this Within the Past 30 days? 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 No [...] and plan for meeting these needs: ind captain waiter no needs at this time Does the [...] 0 I feel financially burdened by my tab-up-tcecst expenses for my prescription medication: Agree somewhat [...] at this time POTENTIAL TRANSITION PLANS Home [facility] OT/house painting instructorLong Term Facility/Intermediate Care Facility To Be Determined Patient from home with roommate. 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 No needs at this time. Currently on TPN and LIWS with corpak placed. No weekend DC planned. Will follow for any transitional needs SIGNATURE: Lalita Ritter RN PATIENT NAME: Mark Serrano DATE: July 08, 2018 TIME: 3:43 PM PAGER/CONTACT #: [phone] Vera Dhillon RN, RN 07/08/2018 4:00 PM Signed Patient stating that zofran has not been helping his nausea. NG with 250 out from 7a-3p. Now with blood tinged drainage from NG. Surgery paged regarding these findings. Mojgan Bolden, METAL BALER.ACID BLEACHER 07/09/2018 10:05 AM Signed Emergency General Surgery Progress Note SERVICE DATE: 07/09/2018629 SUBJECTIVE: Reports nausea, LUQ tenderness Tolerating diet [...] Therapy: Nasal Cannula IANDO: Date 07/08/18699 - 07/09/1865807/09/18699 - 07/10/18 0659 Shift 9240-6916 1566-6776 9487-4394 24 Hour Total 1229-9460 9646-5499 4424-7526 24 Hour Total I N T A K E TPN/PPN 800 800 TPN 800 800 Shift Total 800 800 O U T P U T Urine 175 100 275 Void (ml) 175 100 275 Tubes 436 980 0965 Output (GI Feed/Drain 07/06/18 2230 Admission to Hospital Nasogastric Right Naris) 401 708 3448 Shift Total 425 970 880 4857 Weight (kg) 42.8 43.5 43.5 43.5 43.5 [...] - COPD (chronic obstructive pulmonary disease) ([facility]) 68 year old male with [...] with attending: Dr. Guerrero. ? SIGNATURE: Mojgan Bolden, METAL BALER.ACID BLEACHER PATIENT NAME: Mark Serrano DATE: July 09, 2018 TIME: 6:24 AM CONTACT: [id number] Emergency General Surgery Service Pager: For questions or concerns Mon-Fri 6a-5p please page [phone]. After 5pm and on Weekends and Holidays, please page [phone]. Uday Jo MD 07/09/2018 9:52 AM Signed [...] 09, 2018 TIME: 9:45 AM PAGER: Christoph Capps MD 07/09/2018 3:11 PM Signed CONSULT: GASTROENTEROLOGY SERVICE SERVICE DATE: 07/31/2017 SERVICE TIME: 3:06 PM SUBJECTIVE Chief complaint: 1. Persistent high NG output 2. 3. QUINAULT: Nausea is better; does not like NG tube Current Facility-Administered Medications: phenol 1 [place] (CHLORASEPTIC) 1 [place] MUCOUS MEMBRANE (TOPICAL MOUTH AND THROAT) q 2 H PRN Uday Valluri 1 [place] at 07/09/18 0851 Parenteral Nutrition - Adult [...] mg INTRAVENOUS q 4 H PRN Geovanny (Dmitriy) MD Tasha 5 mg at 07/08/18 1823 heparin 5,000 Units injection 5,000 Units SUBCUTANEOUS q 12 H Priti (Vianney) APRN. MarkPOLLUTION CONTROL ENGINEER 5,000 Units at 07/09/18 0858 0.9% NaCl 3-5 mL 3-5 mL INTRAVENOUS q 12 H Priti (Vianney) APRN. MarkPOLLUTION CONTROL ENGINEER 3 mL at 07/07/18 0037 morphine 1-2 mg injection 1-2 mg INTRAVENOUS q 4 H PRN Priti (Vianney) APRN. MarkPOLLUTION CONTROL ENGINEER 1 mg at 07/07/18 0037 ipratropium-albuterol 3 mL nebulizer solution (DUONEB) 3 mL INHALATION q 4 H PRN Priti (Vianney) APRN. MarkPOLLUTION CONTROL ENGINEER 3 mL at 07/08/18 1556 pantoprazole 40 mg injection (PROTONIX) 40 mg INTRAVENOUS DAILY (6 AM) Gerson Hurd) Hendry 40 mg at 07/09/18 0503 0.9% NaCl [...] 2. Continue NG tube 3. SIGNATURE: Christoph Capps MD PATIENT NAME: Mark Serrano DATE: 07/09/18 TIME: 3:06 PM MOBILE: [phone] Mojgan Bolden, METAL BALER.ACID BLEACHER 07/10/2018 1:15 PM Signed Emergency General Surgery [...] 07/09/18699 - 07/10/1865807/10/18699 - 07/11/18 0659 Shift 7031-6812 7546-9639 6354-2459 24 Hour Total 9199-4638 3767-2975 3870-1119 24 Hour Total I N T A K E TPN/PPN 800 800 TPN 800 800 Shift Total 800 800 O U T P U T Urine 650 1 651 Void (ml) 650 650 Urine Not Saved 1 1 Tubes 474 591 0875 Output (GI Feed/Drain 07/06/18 2230 Admission to Hospital Nasogastric Right Naris) 969 773 0375 Shift Total 650 081 494 8142 Weight (kg) 43.5 44 44 44 44 44 44 44 MEDICATIONS Current Facility-Administered Medications: phenol 1 [place] (CHLORASEPTIC) 1 [place] MUCOUS MEMBRANE (TOPICAL MOUTH AND THROAT) q [...] 07/07/2018 - SBO (small bowel obstruction) ([facility]) 07/07/2018 - Nicotine use disorder, F17.2 07/07/2018 - Hypertension - COPD (chronic obstructive pulmonary disease) ([facility]) 68 year old male with [...] - CT chest ? SIGNATURE: Mojgan Bolden APRN.ACID BLEACHER PATIENT NAME: Mark Serrano DATE: July 10, 2018 TIME: 6:20 AM CONTACT: [id number] Emergency General Surgery Service Pager: For questions or concerns Mon-Wed 6a-5p please page [phone]. After 5pm and on Weekends and Holidays, please page [phone]. Barbara Baldwin DO 07/10/2018 10:31 PM Signed INTERNAL MEDICINE PROGRESS NOTE SERVICE DATE: 07/10/2018 SERVICE TIME: 6:05 PM ADMITTING PHYSICIAN: Dalia Santos Subjective CHIEF COMPLAINT: f/u medical issues listed below Current Facility-Administered Medications: Parenteral Nutrition - Adult INTRAVENOUS ONCE TPN (1800 START) iv contrast (radiology procedure) INTRAVENOUS DIRECTED PRN phenol 1 [place] (CHLORASEPTIC) 1 [place] MUCOUS MEMBRANE (TOPICAL MOUTH AND THROAT) q [...] UPPER GI W SMALL BOWEL SERIES (Order #[id number]) on 07/07/2018 Assessment/Plan Possible SMA syndrome/obstruction PLAN: [...] 11, 2018 TIME: 8:44 AM PAGER/CONTACT #: [phone] Jose Juan Martinez MD 07/11/2018 9:04 AM [...] Laterality Date - COLONOSCOP W/ OR W/O [facility] SPEC Colonoscopy x 4 - [...] (radiology procedure) INTRAVENOUS DIRECTED PRN Mojgan Ring (Battery Charger) Yuan [MAR Hold due to Transfer] acetaminophen 650 mg suppository (TYLENOL) 650 mg RECTAL q 4 H PRN Barbara Baldwin [MAR Hold due to Transfer] phenol 1 [place] (CHLORASEPTIC) 1 [place] MUCOUS MEMBRANE (TOPICAL MOUTH AND THROAT) q 2 H PRN Uday Valluri 1 [place] at 07/09/18 0851 [MAR Hold due to [...] mg INTRAVENOUS q 4 H PRN Geovanny (Dmitriy) MD Tasha 5 mg at 07/08/18 1823 [MAR Hold due to Transfer] heparin 5,000 Units injection 5,000 Units SUBCUTANEOUS q 12 H Priti (Electronics Engineering Technologist) APRN. MarkPOLLUTION CONTROL ENGINEER 5,000 Units at 07/10/18 192 [MAR Hold due to Transfer] 0.9% NaCl 3-5 mL 3-5 mL INTRAVENOUS q 12 H Priti (Vianeny) APRN. MarkPOLLUTION CONTROL ENGINEER 3 mL at 07/07/18 0037 [MAR Hold due to Transfer] morphine 1-2 mg injection 1-2 mg INTRAVENOUS q 4 H PRN Priti (Vianney) APRN. MarkPOLLUTION CONTROL ENGINEER 1 mg at 07/07/18 0037 [MAR Hold due to Transfer] ipratropium-albuterol 3 mL nebulizer solution (DUONEB) 3 mL INHALATION q 4 H PRN Priti (Vianney) APRN. MarkPOLLUTION CONTROL ENGINEER 3 mL at 07/08/18 1556 [MAR Hold due to Transfer] pantoprazole 40 mg injection (PROTONIX) 40 mg INTRAVENOUS DAILY (6 AM) Gerson Hurd) Hendry 40 mg at 07/11/18 0511 [MAR Hold [...] July 11, 2018 TIME: 9:03 AM CSN: [id number] Felicitas Gates RN, RN 07/11/2018 9:10 AM Signed PRE OP LEARNING ASSESSMENT PROCEDURE/SURGERY: GI PROCEDURES: EGD READINESS TO LEARN COGNITIVE ABILITY: Alert and oriented MOTIVATION TO LEARN: Eager FAMILY SUPPORT: None - Unavailable/disinterested PATIENT LEARNS BEST BY: Individual Instruction FACTORS AFFECTING LEARNING: None PHYSICAL LIMITATIONS AFFECTING LEARNING: None Electronically Signed By: Felicitas Gates RN In Department: [facility] CBC W/DIFF, AUTOMATED Collected: 06/30/2018 Status: F Source: [place] 11:05 AM [facility] REPOSITORY TYPE CODE TESTS RESULT OUT OF [...] COMMENT SCANNED Performed By: #### L100.0100 #### [facility] Laboratory [facility]. [place], [place], [address] COMPREHENSIVE METABOLIC Collected: 06/30/2018 Status: F Source: [facility] 11:05 AM [facility] REPOSITORY TYPE CODE TESTS RESULT OUT OF [...] 8 Performed By: #### L500.4050, L501.9520 #### [facility] [address] [place], [place], [address] THYROID STIM HORMONE Collected: 06/30/2018 Status: F Source: [place] ([facility]) 11:05 AM [facility] REPOSITORY TYPE CODE TESTS RESULT OUT OF RANGE REFERENCE UNITS LAB L501.9520 0.358-3.74 uIU/mL Normal TSH 0.90 Performed By: #### L500.4050, L501.9520 #### [facility] [address] [place], [place], [address] VITAMIN D,25 HYDROXY Collected: 06/30/2018 Status: F Source: [place] 11:05 AM [facility] REPOSITORY TYPE CODE TESTS RESULT OUT OF REFERENCE UNITS RANGE LAB L506.1000 29.95-100.01 ng/mL Low Vitamin D 18.0 25-OH Result Comment: Vitamin D 25(OH) Status Range Deficiency <20 ng/mL (50nmol/L) Insuffciency 20 - 30 ng/mL (50 - 75 nmol/L) Sufficiency 30 - 100 ng/mL (75 - 250 nmol/L) Toxicity >100 ng/mL (>250 nmol/L) Performed By: #### L506.1000 #### [facility] [address] [place], [address] PULMONARY VISIT REPORT Observed: 06/23/2018 Status: F Source: [place] 12:28 PM [facility] REPOSITORY [facility] [address] [place] [address] OFFICE VISIT Date of Service: 06/23/18 MR#: [id number] Acct: [id number] Name: MARK SERRANO Rep #: [id number] : 1950 Provider: Delma Frey Age/Sex: 68/M Location: [facility].W Status: Signed Assessment AND Plan 1. 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 Currently, he is using Symbicort 2 puffs [...] Method room air Intake Visit Reasons: COPD Peanut Sorter Required: No Accompanied by: Self Allergies Penicillins [...] insufficiency (Chronic) Atherosclerosis of coronary artery of galena heart without angina pectoris (Chronic) Nicotine abuse [...] oxygen at this time Immunizations flu vacc (65yr up)-MF59C(PF) 45 mcg(15 mcgx3)/0.5 mL IM syringe Performing Provider: LALO Panchal Administered by: May Dhillon on 06/23/18 10:32 Dose Route Admin Location Lot Number Expiration Date NDC Double Cutter 0.5 mL IM Left Deltoid [id number] 02/21/19 82122-826-27 SEQIRUS VIS Given Date VIS Publication Date 06/23/18 05/31/15 Eligibility Eligibility Date Comments: Injection given without pain or discomfort. Left office without adverse reaction. BMJ Coding Level of Care Code Off vis,new,level 3 Diagnoses Panlobular emphysema J43.1 COPD type: emphysema Emphysema type: panlobular 06/23/18 1228 <Electronically signed by Delma MAY> Date Delma MAY Cosigner Signature: Date (if applicable) CC: Jalen Rodríguez MD CARDIOLOGY VISIT Observed: 06/16/2018 Status: F Source: JOSEPH REPORT 3:27 PM [facility] REPOSITORY [facility] [address] [place] [address] OFFICE VISIT Date of Service: 06/16/18 MR#: [id number] Acct: [id number] Name: MARK SERRANO Rep #: [id number] : 1950 Provider: Aj Jimenez MD Age/Sex: 68/M [place] [facility] [place] Signed HPI HPI Chief Complaint: Routine f/u Details: Mr. Serrano is a very pleasant 68-year-old gentleman with a history of Crohn's disease, previous smoker who quit in June 2016, history of GI bleeding, history of kidney stones, stage IV chronic renal sufficiency with a creatinine clearance of 34, who presented initially to [facility] with substernal chest pain and non-ST elevation [...] developed lower GI bleeding and presented to [facility] on 01/18/15. At that time he was emergently fluid resuscitated and transferred to [facility] where he underwent an EGD 2, [...] smoking in June 2016. He presented to [facility] ER on 08/12/16 with abdominal pain and flulike symptoms. He was subsequently treated medically and sent home. He denies any exertional angina, chest pain or shortness of breath over his baseline. He appears to have significant COPD. He is to see Dr. Ocampo, but has not seen him in a while. Patient does not wish to see Dr. Chapman at this time but is open to [...] Pressure 198/76 Intake Visit Reasons: 6 M Peanut Sorter Required: No Is patient in pain?: No [...] #1 inhaler 12/22/17 [Rx Confirmed 06/16/18] Tiotropium Terreton [Spiriva 18 MCG] 1 puff INHALATION DAILY #1 inhaler 12/22/17 [Rx Confirmed 06/16/18] PFSH Medical History Non-rheumatic tricuspid valve insufficiency (Chronic) Atherosclerosis of coronary artery of galena heart without angina pectoris (Chronic) Nicotine abuse [...] Plan 1. Atherosclerosis of coronary artery of galena heart without angina pectoris I25.10 Nonobstructive CAD [...] 3 Diagnoses Atherosclerosis of coronary artery of galena heart without angina pectoris I25.10 CKD (chronic kidney disease) stage 4, GFR 15-29 ml/min N18.4 COPD with acute exacerbation J44.1 Coding Level of Care Code Off vis,est,level 3 Diagnoses Atherosclerosis of coronary artery of galena heart without angina pectoris I25.10 CKD (chronic kidney disease) stage 4, GFR 15-29 ml/min N18.4 COPD with acute exacerbation J44.1 06/16/18 1527 <Electronically signed by Aj Jimenez MD> Date Aj Jimenez MD Cosigner Signature: Date (if applicable) CC: Jalen Rodríguez MD CBC W/DIFF, AUTOMATED Collected: 12/30/2017 Status: F Source: JOSEPH 12:04 PM [facility] REPOSITORY TYPE CODE TESTS RESULT OUT OF [...] Lymph 0.72 Performed By: #### L100.0100 #### [facility] [address] [place], [address] COMPREHENSIVE METABOLIC Collected: 12/30/2017 Status: F [facility] REPOSITORY TYPE CODE TESTS RESULT OUT OF [...] Performed By: #### L500.4050, L501.9520, L501.9910 #### [facility] [address] [place], [address] THYROID STIM HORMONE Collected: 12/30/2017 Status: F Source: JOSEPH (TSH) 12:04 PM [facility] REPOSITORY TYPE CODE TESTS RESULT OUT OF RANGE REFERENCE UNITS LAB L501.9520 0.358-3.74 uIU/mL Normal TSH 1.66 Performed By: #### L500.4050, L501.9520, L501.9910 #### [facility] [address] [place], [address] PSA,TOTAL - ANNUAL Collected: 12/30/2017 Status: F Source: JOSEPH SCREEN 12:04 PM [facility] REPOSITORY TYPE CODE TESTS RESULT OUT OF RANGE REFERENCE UNITS LAB L501.9910 0.00-4.00 ng/mL Normal PSA,TOT 1.27 SCREEN Result Comment: This test was performed using the TPSA assay method for the [employer] chemistry system. Values obtained with different assay methods cannot be used interchangably. When changing PSA assays in the course of monitoring a patient, additional sequential testing should be carried out to confirm baseline values. Performed By: #### L500.4050, L501.9520, L501.9910 #### [facility] [address] [place], [place], [address] HEPATITIS C ANTIBODIES Collected: 12/30/2017 Status: F Source: JOSEPH 12:04 PM [facility] REPOSITORY TYPE CODE TESTS RESULT OUT OF RANGE REFERENCE UNITS LAB L3100.0650 0.0-0.9 s/co ratio Normal HEP C AB <0.1 Result Comment: Negative: < 0.8 Indeterminate: 0.8 - 0.9 Positive: > 0.9 The CDC recommends that a positive HCV antibody result be followed up with a HCV Nucleic Acid Amplification test (613138). Performed at: - [facility] [id number] Butt Trimmer: Boone Wong PhD, Phone: [phone] Performed By: #### L3100.0625 #### [facility] (refer to report for specific site) refer to report for address and phone number 12 LEAD ELECTROCARDIOGRAM Observed: 12/22/2017 Status: F Source: JOSEPH 1:45 PM [facility] REPOSITORY [facility] Cardiovascular Services [address] [place] [address] 12 Lead EKG 12/20/17 0325 MR#: [id number] Acct: [id number] Name: MARK SERRANO Rep #: [id number] : 1950 67 From: Robert Campbell MD [...] ECG Confirmed by ROBERT CAMPBELL MD ([id number]), editor index CRISTO SANTOS ([id number]) on 12/22/2017 1:45:08 PM Referred By: Aj Jimenez Confirmed By:ROBERT CAMPBELL MD 12/22/17 1345 Date Robert Campbell MD CC: Leti Lopez MD; Jalen Rodríguez MD Signed DISCHARGE SUMMARY Observed: 12/22/2017 Status: F Source: JOSEPH 7:31 AM [facility] REPOSITORY [facility] Medical Records Department [address] [place] [address] Discharge Summary 12/22/17 4830 MR#: [id number] Acct: [id number] Name: MARK SERRANO Rep #: [id number] : 1950 67 From: Dalia Roberson MD PCP: Marcos ABRAHAM,Jalen Mary Status: ADM IN Y Location: ICU [id number] Discharge Date and Diagnosis - Problem List [...] insufficiency (Chronic) Atherosclerosis of coronary artery of galena heart without angina pectoris (Chronic) Nicotine abuse (Chronic) Hypertension (Chronic) COLD (chronic obstructive lung disease) (Chronic) CKD (chronic kidney disease) stage 4, GFR 15-29 ml/min (Chronic) Following with Dr. Chapman [facility] Course and Treatment Imaging Results: Clinical Impression(s) [...] mg PO UD #30 tab 12/22/17 Tiotropium Terreton [Spiriva 18 MCG] 1 puff INHALATION DAILY #1 inhaler 12/22/17 Following Prescrptions Were Given to Patient: Budesonide/Formoterol 160/4.5 [Symbicort 160/4.5 Mcg Inhaler (SP)] 1 puff INHALATION DAILY #1 inhaler Levofloxacin [Levaquin] 250 mg PO DAILY@0600 #5 tab Prednisone 10 mg PO UD #30 tab Tiotropium Terreton [Spiriva 18 MCG] 1 puff INHALATION DAILY [...] applicable Code Visit Inpatient E AND M: 97883 Disch Hosp 12/22/17 0731 <Electronically signed by Dalia Roberson MD> Date Dalia Roberson MD Cosigner Signature (if applicable): Date CC: Dalia Roberson MD; Jalen Rodríguez MD Signed DISCHARGE INSTRUCTION Observed: 12/22/2017 Status: F Source: JOSEPH 7:30 AM [facility] REPOSITORY [facility] Medical Records Department [address] [place] [address] Instructions for Home/Discharge Instructions 12/22/17 0728 MR#: [id number] Acct: [id number] Name: MARK SERRANO Rep #: [id number] : 1950 67 From: Dalia Roberson MD PCP: Marcos ABRAHAM,Jalen Mary Status: ADM IN You will use the [...] mg PO UD #30 tab 12/22/17 Tiotropium Terreton [Spiriva 18 MCG] 1 puff INHALATION DAILY #1 inhaler 12/22/17 The following prescriptions were given: Budesonide/Formoterol 160/4.5 [Symbicort 160/4.5 Mcg Inhaler (SP)] 1 puff INHALATION DAILY #1 inhaler Levofloxacin [Levaquin] 250 mg PO DAILY@0600 #5 tab Prednisone 10 mg PO UD #30 tab Tiotropium Terreton [Spiriva 18 MCG] 1 puff INHALATION DAILY #1 inhaler Primary Care Physician: Care Physician,No Primary [NON-STAFF] - Please follow up with your Primary Care Physician in: in 1- 2 weeks Please Follow Up With: Delma Frey NP-C When: in 1-2 weeks Proposed Discharge Date: 12/22/17 12/22/17 0730 <Electronically signed by Dalia Roberson MD> Date Dalia Roberson MD CC: Jose D Wolff D.O.; Jalen Rodríguez MD CBC-COMPLETE BLOOD CNT Collected: 12/22/2017 Status: F Source: JOSEPH NO DIFF 5:50 AM [facility] REPOSITORY TYPE CODE TESTS RESULT OUT OF [...] MPV 11.1 Performed By: #### L100.0500 #### [facility] [address] [place], [place], [address] BASIC METABOLIC Collected: 12/22/2017 Status: F Source: JOSEPH PROFILE (BMP) 5:50 AM [facility] REPOSITORY TYPE CODE TESTS RESULT OUT OF [...] 8 Performed By: #### L500.2500, L501.5200 #### [facility] [address] [place], [place], [address] MAGNESIUM Collected: 12/22/2017 Status: F Source: JOSEPH 5:50 AM [facility] REPOSITORY TYPE CODE TESTS RESULT OUT OF RANGE REFERENCE UNITS LAB L501.5200 1.6-2.6 mg/dL Normal MG 2.0 Result Comment: Please note revised Magnesium reference range effective 2017. Performed By: #### L500.2500, L501.5200 #### [facility] [address] [place], [place], [address] CBC-COMPLETE BLOOD CNT Collected: 12/21/2017 Status: F Source: JOSEPH NO DIFF 9:30 AM [facility] REPOSITORY TYPE CODE TESTS RESULT OUT OF [...] MPV 10.8 Performed By: #### L100.0500 #### [facility] [address] [place], [address] BASIC METABOLIC Collected: 12/21/2017 Status: F Source: ELGIN PROFILE ([facility]) 9:30 AM [facility] REPOSITORY TYPE CODE TESTS RESULT OUT OF [...] 10 Performed By: #### L500.2500, L501.5200 #### [facility] [address] [place], [address] MAGNESIUM Collected: 12/21/2017 Status: F Source: ELGIN 9:30 AM [facility] REPOSITORY TYPE CODE TESTS RESULT OUT OF RANGE REFERENCE UNITS LAB L501.5200 1.6-2.6 mg/dL Normal MG 1.8 Result Comment: Please note revised Magnesium reference range effective 2017. Performed By: #### L500.2500, L501.5200 #### [facility] [address] [place], [address] CONSULTATION Observed: 12/20/2017 Status: F Source: ELGIN 2:31 PM [facility] REPOSITORY [facility] Medical Records Department [address] [place] [address] Consultation 12/20/17 0647 MR#: [id number] Acct: [id number] Name: MARK SERRANO Birdie Rep #: [id number] : 1950 67 From: Jose D Wolff DO PCP: Marcos ABRAHAM,[facility] Status: ADM IN Location: ICU ICU-1 Reason for Consult Date of Consultation: 12/20/17 [...] insufficiency (Chronic) Atherosclerosis of coronary artery of galena heart without angina pectoris (Chronic) Nicotine abuse [...] - Nasopharyngeal Influenza Types A,B Direct FA ([facility]) - Final Clinical Impression(s) from Imaging Studies [...] as indicated. This note was generated with Social[employer]ation software. It may contain incorrect words, spelling, and punctuation that were not noted in checking the note before signing. DISPOSITION: The patient is medically stable for transfer out of the intensive care unit. Code Visit Inpatient E AND M: 26804 Init Hosp L3 12/20/17 1431 <Electronically signed by Jose D Wolff DO> Date Jose D Wolff DO Cosigner Signature (if applicable): Date CC: Jose D Wolff D.O.; Jalen Rodríguez MD Signed LACTIC ACID Collected: 12/20/2017 Status: F Source: ELGIN 7:30 AM [facility] REPOSITORY TYPE CODE TESTS RESULT OUT OF RANGE REFERENCE UNITS LAB L503.6005 0.4-2.0 mmol/L Normal LACTIC ACID 1.0 Performed By: #### L503.6005 #### [facility] [address] [place], [place], [address] Observed: 12/20/2017 Status: F Source: ELGIN RESPIRATORY PANEL 7:09 AM [facility] MOLECULAR REPOSITORY RP PANEL ADENOVIRUS Not Detected [...] acid amplification Performed By: #### M100.638 #### [facility] [address] [place] [address]. [place], [address] Observed: 12/20/2017 Status: F Source: ELGIN CULTURE, SPUTUM 6:00 AM [facility] REPOSITORY Gram Stain * This is an [...] aureus isolated. Performed By: #### M100.0800 #### [facility] [address] [place], [address] M R STAPH AUREUS Collected: 12/20/2017 Status: F Source: ELGIN DNA BY PCR 4:50 AM [facility] REPOSITORY Order Comment: Source: NASAL SWAB TYPE CODE TESTS RESULT OUT OF RANGE REFERENCE UNITS LAB L8200.1100 Negative Normal MRSA Negative RESULT Performed By: #### L8200.1000 #### [facility] [address] [place], [address] HISTORY AND PHYSICAL Observed: 12/20/2017 Status: F Source: ELGIN EXAM 4:19 AM [facility] REPOSITORY [facility] Medical Records Department [address] [place] [address] History and Physical 12/20/17 0412 MR#: [id number] Acct: [id number] Name: MARK SERRANO Rep #: [id number] : 1950 67 From: Kam Lowe MD PCP: Marcos ABRAHAM,Jalen Mary Status: ADM IN Y Location: ICU ICU03-1 [...] insufficiency (Chronic) Atherosclerosis of coronary artery of galena heart without angina pectoris (Chronic) Nicotine abuse [...] EMERGENCY DEPARTMENT Observed: 12/20/2017 Status: F Source: ELGIN SUMMARY 3:49 AM [facility] REPOSITORY [facility] Medical Records Department [address] [place] [address] Emergency Department Summary 12/20/17 0253 MR#: [id number] Acct: [id number] Name: MARK SERRANO Rep #: [id number] : 1950 67 From: Leti Lopez MD PCP: Marcos ABRAHAM,Jalen Mary Status: REG [...] COPD exacerbation This note was generated with [employer] dictation software. It may contain incorrect words, [...] your Primary Care Provider. Call [facility] ([phone]) or report to the closest Emergency Room. Call 911 if necessary. 12/20/17 0349 <Electronically signed by Leti Lopez MD> Date Leti Lopez MD Cosigner Signature (If Indicated): Date CC: Jalen Rodríguez MD Observed: 12/20/2017 Status: F Source: ELGIN INFLUENZA A+B (RAPID 3:30 AM [facility] SENAIT) REPOSITORY Order Date: 12/20/17 FLU A/B Rapid Negative test results should be confirmed by culture. Order Rapid Viral Culture for Influenzae A+B ([id number]) if clinically indicated. Influenza Ag, Direct Presumptive NEGATIVE for Influenza A/B Antigen (See Note) Performed By: #### M101.0101 #### [facility] [address] [place], [address] BLOOD GASES BY CPS Collected: 12/20/2017 Status: F Source: ELGIN 3:16 AM [facility] REPOSITORY TYPE CODE TESTS RESULT OUT OF [...] ISTAT 95 Performed By: #### L9000.0800 #### [facility] Point of Care [address] [place], [place] [address] Observed: 12/20/2017 Status: F Source: JOSEPH CULTURE, BLOOD (WB) 3:00 AM [facility] REPOSITORY BC No growth in 5 days. Performed By: #### M200.1000 #### [facility] [address] [place], [address] CBC W/DIFF, AUTOMATED Collected: 12/20/2017 Status: F Source: JOSEPH 2:55 AM [facility] REPOSITORY TYPE CODE TESTS RESULT OUT OF [...] Lymph 1.14 Performed By: #### L100.0100 #### [facility] [address] [place], [address] BASIC METABOLIC Collected: 12/20/2017 Status: F Source: ELGIN PROFILE ([facility]) 2:55 AM [facility] REPOSITORY Order Comment: 'TROP' Serial specimen #1, [...] 10 Performed By: #### L500.2500, L501.4010 #### [facility] [address] [place], [place], [address] TROPONIN-I Collected: 12/20/2017 Status: F Source: ELGIN 2:55 AM [facility] REPOSITORY Order Comment: 'TROP' Serial specimen #1, #2, #3, or #4: 1 TYPE CODE TESTS RESULT OUT OF RANGE REFERENCE UNITS LAB L501.4010 <0.06 ng/mL Normal < 0.02 TROPONIN-I Result Comment: TROPONIN-I EXPECTED VALUES <0.05 NEGATIVE 0.06 - 0.59 AT RISK OF ME > OR = 0.60 SUGGEST ME Performed By: #### L500.2500, L501.4010 #### [facility] [address] [facility] [address] BNP,B-TYPE NATRIURETIC Collected: 12/20/2017 Status: F Source: ELGIN PEPTIDE 2:55 AM [facility] REPOSITORY TYPE CODE TESTS RESULT OUT OF RANGE REFERENCE UNITS LAB L503.6620 0-100 pg/mL Normal B-TYPE 64.4 GRACIELA PEP Performed By: #### L503.6620 #### [facility] [address] [facility] [id number] LACTIC ACID Collected: 12/20/2017 Status: F Source: JOSEPH 2:55 AM [facility] REPOSITORY Order Comment: Yes/No query for Sepsis Lactate Rule Y TYPE CODE TESTS RESULT OUT OF REFERENCE UNITS RANGE LAB L503.6005 0.4-2.0 mmol/L High LACTIC ACID 2.7 Result Comment: Critical Result(s) Called at: 04:11:07 12/20/2017 by: OPAL GARCIA RN ED Performed By: #### L503.6005 #### [facility] [address] [place], [address] Observed: 12/20/2017 Status: F Source: ELGIN CULTURE, BLOOD (WB) 2:55 AM [facility] REPOSITORY BC No growth in 5 days. Performed By: #### M200.1000 #### [facility] [address] [place], [address] CHEST 1 VIEW Observed: 12/20/2017 Status: F Source: JOSEPH (PORTABLE) 2:51 AM [facility] REPOSITORY [facility] Imaging Services [address] [place] [address] Chest 1 View (Portable) MR#: [id number] Acct: [id number] Name: ZACHMARK Birdie Rep #: [id number] : 1950 M 67 From: Tanner Bronson PCP: Care Physician, No Primary Status: PRE ER Study: Chest 1 View (Portable) Date of Exam: 12/20/17 Exam# [id number] Ordering Dr: Leti Lopez MD STUDY: X-RAY [...] No Primary Care Physician; Leti Lopez MD Record Tabulating Clerk: Signed LIVER PROFILE Collected: 12/10/2017 Status: F Source: ELGIN 1:40 PM [facility] REPOSITORY TYPE CODE TESTS RESULT OUT OF [...] 0.23 Performed By: #### L500.3400, L500.4100 #### [facility] [address] [place], [address] LIPID PROFILE Collected: 12/10/2017 Status: F Source: ELGIN 1:40 PM [facility] REPOSITORY TYPE CODE TESTS RESULT OUT OF [...] 10 Performed By: #### L500.3400, L500.4100 #### [facility] [address] [place], [address] CARDIOLOGY VISIT Observed: 11/25/2017 Status: F Source: ELGIN REPORT 2:42 PM [facility] REPOSITORY [facility] [address] [place] [address] OFFICE VISIT Date of Service: 11/25/17 MR#: [id number] Acct: [id number] Name: MARK SERRANO Rep #: [id number] : 1950 Provider: Aj Jimenez MD Age/Sex: 67/M Location: [facility] Status: Signed HPI 6 M FU: Chief Complaint: Routine follow-up Details: Mr. Serrano is a very pleasant 67-year-old gentleman with a history of Crohn's disease, previous smoker who quit in June 2016, history of GI bleeding, history of kidney stones, stage IV chronic renal sufficiency with a creatinine clearance of 34, who presented initially to [facility] with substernal chest pain and non-ST elevation [...] developed lower GI bleeding and presented to [facility] on 01/18/15. At that time he was emergently fluid resuscitated and transferred to [facility] where he underwent an EGD 2, [...] smoking in June 2016. He presented to [facility] ER on 08/12/16 with abdominal pain and [...] Q5M PRN 01/17/15 [History Confirmed 11/25/17] Tiotropium Terreton [Spiriva 18 MCG] 1 puff INHALATION DAILY [...] insufficiency (Chronic) Atherosclerosis of coronary artery of galena heart without angina pectoris (Chronic) Nicotine abuse [...] (2 x 10 mg) PO ACHS [facility]ie [facility] ed ondansetron Discontinued Reason: Order Chang4 mg PO Q8H PRN PRN Nausea Marjorie [facility] ed Plan Detail Follow Up 6 Months (Tony) Coding Level of Care Code Off vis,est,level 3 Coding Level of Care Code Off vis,est,level 3 11/25/17 8801 <Electronically signed by Aj Jimenez MD> Date Aj Jimenez MD Cosigner Signature: Date (if applicable) CC: ALLERGIES ALLERGIES DATE TYPE / CODE NAME / CODE REACTION SEVERITY SOURCE 10/25/2018 Drug Penicillins/F0010 Other Unknown [place] Allergy/416 44359(RXNORM) Community 460062([facility] ED CT) Repository 07/06/2018 DRUG PENICILLIN Mental [facility] INGREDI/419 Other [place] 856687([facility] ED CT) /[id number] PENICILLIN [facility] [employer] [facility]) Repository ENCOUNTERS ENCOUNTERS ADMIT/DISCHARGE ACCOUNT NUMBER ADMITTING ENCOUNTER LOCATION SOURCE CLASS 11/16/2018 [id number] Ambulatory [facility] ding:POLAB3 Repository 11/15/2018 [id number] Ambulatory [facility] ding:[facility] Repository 11/11/2018/11/15/19 [id number] Ambulatory [address] Main [place] Repository 11/09/2018 [id number] Ambulatory [facility] ding:LAB Repository 10/26/2018/10/30/19 [id number] Ambulatory BMSBuilding: [place] [facility] Repository 10/26/2018 [id number] [place], Ambulatory BMSBuilding: [place] [facility] Repository 10/26/2018 [id number] [place], Ambulatory BMSBuilding: [place] [facility]MS.[facility] Repository 10/26/2018 [id number] [place], Ambulatory BMSBuilding: [place] [facility] Repository 10/26/2018 [id number] [place], Ambulatory BMSBuilding: [place] [facility] Repository 10/26/2018 [id number] [place], Ambulatory BMSBuilding: [place] [facility]MS.[facility] Repository 10/26/2018 [id number] [place], Ambulatory BMSBuilding: [place] [facility] Repository 10/26/2018/10/30/19 [id number] [place], Inpatient [place] [facility] ding:PCURoom Repository : [id number]: 1 10/04/2018 [id number] Ambulatory BMSBuilding: [place] [facility] Repository 10/04/2018 [id number] Ambulatory [facility] ding:PSN Repository 09/28/2018/09/28/20 [id number] Ambulatory BMSBuilding: [place] 18 BMS.[facility] Repository 07/06/2018/07/13/20 [id number] DALIA SANTOS Inpatient [address] Repository 07/06/2018/07/13/20 [id number] Jeaneth SANTOS Inpatient [facility] 18 [facility] MEDICAL Repository CENTERBuildi nRoom: 7106Bed: 02 07/06/2018/07/06/20 [id number] Emergency [address] ding:ED Repository 06/30/2018 [id number] Ambulatory [facility] ding:POLAB3 Repository 06/23/2018/06/23/20 [id number] Ambulatory BMSBuilding: [place] 18 BMS.[facility] Repository 06/16/2018/06/16/20 [id number] Ambulatory BMSBuilding: [place] 18 BMS.[facility] Repository 06/14/2018 [id number] Ambulatory BMSBuilding: [place] BMS.[facility] Repository 12/30/2017 [id number] Ambulatory [facility] ding:POLAB3 Repository 12/20/2017 [id number] Kam Lowe Ambulatory BMSBuilding: [place] BMS.CF.[facility] Repository 12/20/2017 [id number] Chrissy, Kam Ambulatory BMSBuilding: [place] BMS.CF.[facility] Repository 12/20/2017 [id number] Chrissy, Kam Ambulatory BMSBuilding: [place] BMS.[facility] Repository 12/20/2017 [id number] Chrissy, Kam Ambulatory BMSBuilding: [place] BMS.[facility] Repository 12/20/2017 [id number] Chrissy, Kam Ambulatory BMSBuilding: [place] [facility] 12/20/2017/12/22/19 [id number] Chrissy, Kam Inpatient [place] 18 Encounter [facility] ding:ICURoom Repository : [id number]: 1 12/20/2017 [id number] Chrissy, Kam Ambulatory BMSBuilding: [place] BMS.CF.[facility] Repository 12/10/2017 [id number] Ambulatory [place] [facility] ding:LAB Repository 11/25/2017/11/25/19 [id number] Ambulatory BMSBuilding: [place] 18 BMS.[facility] Repository 11/25/2017 [id number] Ambulatory BMSBuilding: [place] BMS.[facility] Repository 11/25/2017 [id number] Ambulatory BMSBuilding: [place] BMS.[facility] Repository PAYERS PAYERS ENCOUNTER GUARANTOR PAYER SUBSCRIBER SOURCE 11/16/2018 MARK E Primary MARK E [place] [id number] E Insurance:MEDICARE HORNERDOB: [facility], PART A [facility] [id number] General Hospital [address]Pov: Number: Repository [id number] () Date:2018-11-16 11/16/2018 Secondary MARK E [place] Insurance:MEDICAIDPol [facility]: [facility] Number: [id number] Hospital [id number] Repository Date:2018-11-16 11/16/2018 Tertiary NOT GIVENUNK [place] Insurance:SELF PAY [facility] Number: Effective Repository Date:2018-11-16 11/15/2018 MARK E Primary MARK E [place] [id number] E Insurance:MEDICARE HORNERDOB: [facility] PART A [facility] [id number] General Hospital [address]Acf: Number: Repository [id number] (HP) Date:2018-11-09 11/15/2018 Secondary MARK E [place] Insurance:MEDICAIDPol [facility]: Replaced By [facility] ic Number: [id number] [place] [address] [id number] Repository Date:2018-11-09 11/15/2018 Tertiary NOT GIVENUNK [place] Insurance:SELF PAY [facility] Number: Effective Repository Date:2018-11-09 11/09/2018 MARK E Primary MARK E [place] [id number] E Insurance:MEDICARE HORNERDOB: [facility], PART A [facility] [id number] General Hospital [address]Pgc: Number: Repository [id number] (HP) Date:2018-11-09 11/09/2018 Secondary MARK E [place] Insurance:MEDICAIDPol [facility] By [facility] ic Number: [id number] Hospital [id number] Repository Date:2018-11-09 11/09/2018 Tertiary NOT GIVENUNK [place] Insurance:SELF PAY [facility] Number: Effective Repository Date:2018-11-09 10/26/2018 MARK E Primary MARK E [place] [id number] E Insurance:MEDICARE HORNERDOB: [facility], PART A [facility] [id number] General Hospital [address]Lbi: Number: Repository [id number] (HP) Date:2018-10-25 10/26/2018 Secondary MARK E [place] Insurance:MEDICAIDPol HORNERDOB: Replaced By [facility] ic Number: [id number] [id number] Repository Date:2018-10-25 10/26/2018 Tertiary NOT GIVENUNK [place] Insurance:SELF PAY [facility] Number: Effective Repository Date:2018-10-26 10/26/2018 MARK E Primary MARK E [place] [id number] E Insurance:MEDICARE HORNERDOB: [facility] PART A [facility] [id number] Hospital [place] [address]Wnr: Number: Repository [id number] (HP) Date:2018-10-25 10/26/2018 Secondary MARK E [place] Insurance:MEDICAIDPol HORNERDOB: Replaced By [facility] icy Number: [id number] [place] [address] [id number] Repository Date:2018-10-25 10/26/2018 Tertiary NOT GIVENUNK [place] Insurance:SELF PAY [facility] Number: Effective Repository Date:2018-10-26 10/26/2018 MARK E Primary MARK E [place] [id number] E Insurance:MEDICARE HORNERDOB: [facility], PART A [facility] [id number] General Hospital [address]Edf: Number: Repository [id number] (HP) Date:2018-10-25 10/26/2018 Secondary MARK E [place] Insurance:MEDICAIDPol HORNERDOB: Replaced By [facility] ic Number: [id number] Hospital [id number] Repository Date:2018-10-25 10/26/2018 Tertiary NOT GIVENUNK [place] Insurance:SELF PAY [facility] Number: Effective Repository Date:2018-10-26 10/26/2018 MARK E Primary MARK E [place] [id number] E Insurance:MEDICARE HORNERDOB: [facility] PART A [facility] [id number] General Hospital [address]Kbv: Number: Repository [id number] (HP) Date:2018-10-25 10/26/2018 Secondary MARK E [place] Insurance:MEDICAIDPol HORNERDOB: Replaced By [facility] ic Number: [id number] [place] [address] [id number] Repository Date:2018-10-25 10/26/2018 Tertiary NOT GIVENUNK [place] Insurance:SELF PAY [facility] Number: Effective Repository Date:2018-10-26 10/26/2018 MARK E Primary MARK E [place] [id number] Insurance:MEDICARE HORNERDOB: [facility] PART A [facility] [id number] [place] [address]Ynv: Number: Repository [id number] (HP) Date:2018-10-25 10/26/2018 Secondary MARK E [place] Insurance:MEDICAIDPol HORNERDOB: Replaced By [facility] ic Number: [id number] Hospital [id number] Repository Date:2018-10-25 10/26/2018 Tertiary NOT GIVENUNK [place] Insurance:SELF PAY [facility] Number: Effective Repository Date:2018-10-26 10/26/2018 MARK E Primary MARK E [place] [id number] E Insurance:MEDICARE HORNERDOB: [facility], PART A [facility] [id number] General Hospital [address]Jxn: Number: Repository [id number] (HP) Date:2018-10-25 10/26/2018 Secondary MARK E [place] Insurance:MEDICAIDPol [facility]: [facility]placed By [facility] ic Number: [id number] Hospital [id number] Repository Date:2018-10-25 10/26/2018 Tertiary NOT GIVENUNK [place] Insurance:SELF PAY [facility] Number: Effective Repository Date:2018-10-26 10/26/2018 MARK E Primary MARK E [place] [id number] E Insurance:MEDICARE HORNERDOB: [facility] PART A [facility] [id number] [address]Nhh: Number: Repository [id number] (HP) Date:2018-10-25 10/26/2018 Secondary MARK E [place] Insurance:MEDICAIDPol HORNERDOB: Replaced By [facility] ic Number: [id number] Hospital [id number] Repository Date:2018-10-25 10/26/2018 Tertiary NOT GIVENUNK [place] Insurance:SELF PAY [facility] Number: Effective Repository Date:2018-10-25 10/26/2018 MARK E Primary MARK E [place] [id number] E Insurance:MEDICARE HORNERDOB: [facility] PART A [facility] [id number] [place] [address]Ggq: Number: Repository [id number] (HP) Date:2018-10-25 10/26/2018 Secondary MARK E [place] Insurance:MEDICAIDPol HORNERDOB: Replaced By [facility] icy Number: [id number] [place] [address] [id number] Repository Date:2018-10-25 10/26/2018 Tertiary NOT GIVENUNK [place] Insurance:SELF PAY [facility] Number: Effective Repository Date:2018-10-25 10/04/2018 MARK E Primary MARK E [place] [id number] E Insurance:MEDICARE HORNERDOB: [facility], PART A [facility] [id number] General Hospital [address]Baa: Number: Repository [id number] (HP) Date:2018-07-04 10/04/2018 Secondary MARK E [place] Insurance:MEDICAIDPol HORNERDOB: Replaced By [facility] ic Number: [id number] Hospital [id number] Repository Date:2018-07-04 10/04/2018 Tertiary NOT GIVENUNK [place] Insurance:SELF PAY [facility] Number: Effective Repository Date:2018-10-04 10/04/2018 MARK E Primary MARK E [place] [id number] E Insurance:MEDICARE HORNERDOB: [facility] PART A [facility] [id number] General Hospital [address]Keo: Number: Repository [id number] (HP) Date:2018-07-04 10/04/2018 Secondary MARK E [place] Insurance:MEDICAIDPol HORNERDOB: Replaced By [facility] ic Number: [id number] Hospital [id number] Repository Date:2018-07-04 10/04/2018 Tertiary NOT GIVENUNK [place] Insurance:SELF PAY [facility] Number: Effective Repository Date:2018-07-04 09/28/2018 MARK E Primary MARK E [place] [id number] E Insurance:MEDICARE HORNERDOB: [facility], PART A [facility] [id number] General Hospital [address]Dcn: Number: Repository [id number] (HP) Date:2018-06-23 09/28/2018 Secondary MARK E [place] Insurance:MEDICAIDPol HORNERDOB: Replaced By [facility] icy Number: [id number] Hospital [id number] Repository Date:2018-06-23 09/28/2018 Tertiary NOT GIVENUNK [place] Insurance:SELF PAY [facility] Number: Effective Repository Date:2018-09-21 07/06/2018 MARK E Primary MARK E [facility] HORNERDOB: Insurance:MEDICARE A [facility]: [facility] E AND olic Number: [id number] Hospital for Women [id number] [place] [address]Rpe: Date: () 07/06/2018 Secondary MARK E [facility] Insurance:[place] HORNERDOB: [facility] MEDICAIDPolicy [id number] Repository Number: [id number] Date: 07/06/2018 MARK E Primary MARK E [place] [id number] E Insurance:MEDICARE HORNERDOB: [facility] PART A [facility] [id number] General Hospital [address]Uov: Number: Repository [id number] () Date:2018-07-06 07/06/2018 Secondary MARK E [place] Insurance:MEDICAIDPol [facility]: Replaced By [facility] ic Number: [id number] Hospital [id number] Repository Date:2018-07-06 07/06/2018 Tertiary NOT GIVENUNK [place] Insurance:SELF PAY [facility] Number: Effective Repository Date:2018-07-06 06/30/2018 MARK E Primary MARK E [place] [id number] E Insurance:MEDICARE HORNERDOB: [facility] PART A [facility] [id number] [place] [address]Hkd: Number: Repository [id number] () Date:2018-06-30 06/30/2018 Secondary MARK E [place] Insurance:MEDICAIDPol [facility]: Replaced By [facility] ic Number: [id number] Hospital [id number] Repository Date:2018-06-30 06/30/2018 Tertiary NOT GIVENUNK [place] Insurance:SELF PAY [facility] Number: Effective Repository Date:2018-06-30 06/23/2018 MARK E Primary MARK E [place] [id number] E Insurance:MEDICARE HORNERDOB: [facility] PART A [facility] [id number] General Hospital [address]Zdx: Number: Repository [id number] (HP) Date:2018-06-17 06/23/2018 Secondary MARK E [place] Insurance:MEDICAIDPol HORNERDOB: Replaced By [facility] icy Number: [id number] Hospital [id number] Repository Date:2018-06-17 06/23/2018 Tertiary NOT GIVENUNK [place] Insurance:SELF PAY [facility] Number: Effective Repository Date:2018-06-17 06/16/2018 MARK E Primary MARK E [place] [id number] E Insurance:MEDICARE HORNERDOB: [facility] PART A [facility] [id number] General Hospital [address]Wse: Number: Repository [id number] (HP) Date:2017-11-25 06/16/2018 Secondary MARK E [place] Insurance:MEDICAIDPol [facility]: Replaced By [facility] ic Number: [id number] Hospital [id number] Repository Date:2017-11-25 06/16/2018 Tertiary NOT GIVENUNK [place] Insurance:SELF PAY [facility] Number: Effective Repository Date:2018-06-16 06/14/2018 MARK E Primary MARK E [place] [id number] E Insurance:MEDICARE HORNERDOB: [facility], PART A [facility] [id number] General Hospital [address]Hwu: Number: Repository [id number] (HP) Date:2018-06-14 06/14/2018 Secondary MARK E [place] Insurance:MEDICAIDPol HORNERDOB: Replaced By [facility] ic Number: [id number] Hospital [id number] Repository Date:2018-06-14 06/14/2018 Tertiary NOT GIVENUNK [place] Insurance:SELF PAY [facility] Number: Effective Repository Date:2018-06-14 12/30/2017 MARK E Primary MARK E [place] [id number] E Insurance:MEDICARE HORNERDOB: [facility], PART A [facility] [id number] General Hospital [address]Hry: Number: Repository [id number] (HP) Date:2017-12-30 12/30/2017 Secondary MARK E [place] Insurance:MEDICAIDPol HORNERDOB: Replaced By [facility] icy Number: [id number] Hospital [id number] Repository Date:2017-12-30 12/30/2017 Tertiary NOT GIVENUNK [place] Insurance:SELF PAY [facility] Number: Effective Repository Date:2017-12-30 12/20/2017 MARK E Primary MARK E [place] [id number] E Insurance:MEDICARE HORNERDOB: [facility], PART A [facility] [id number] Hospital [place] [address]Tmx: Number: Repository [id number] (HP) Date:2017-12-20 12/20/2017 Secondary MARK E [place] Insurance:MEDICAIDPol HORNERDOB: Replaced By [facility] ic Number: [id number] Hospital [id number] Repository Date:2017-12-20 12/20/2017 Tertiary NOT GIVENUNK [place] Insurance:SELF PAY [facility] Number: Effective Repository Date:2017-12-20 12/20/2017 MARK E Primary MARK E [place] [id number] E Insurance:MEDICARE HORNERDOB: [facility], PART A [facility] [id number] Hospital [place] [address]Zfj: Number: Repository [id number] (HP) Date:2017-12-20 12/20/2017 Secondary MARK E [place] Insurance:MEDICAIDPol HORNERDOB: Replaced By [facility] ic Number: [id number] Hospital [id number] Repository Date:2017-12-20 12/20/2017 Tertiary NOT GIVENUNK [place] Insurance:SELF PAY [facility] Number: Effective Repository Date:2017-12-20 12/20/2017 MARK E Primary MARK E [place] [id number] E Insurance:MEDICARE HORNERDOB: [facility], PART A [facility] [id number] [place] [address]Una: Number: Repository [id number] (HP) Date:2017-12-20 12/20/2017 Secondary MARK E [place] Insurance:MEDICAIDPol HORNERDOB: Replaced By [facility] ic Number: [id number] Hospital [id number] Repository Date:2017-12-20 12/20/2017 Tertiary NOT GIVENUNK [place] Insurance:SELF PAY [facility] Number: Effective Repository Date:2017-12-20 12/20/2017 MARK E Primary MARK E [place] [id number] E Insurance:MEDICARE HORNERDOB: [facility] PART A [facility] [id number] General Hospital [address]Orm: Number: Repository [id number] (HP) Date:2017-12-20 12/20/2017 Secondary MARK E [place] Insurance:MEDICAIDPol [facility]AREERD[facility]: Replaced By [facility] ic Number: [id number] Hospital [id number] Repository Date:2017-12-20 12/20/2017 Tertiary NOT GIVENUNK [place] Insurance:SELF PAY [facility] Number: Effective Repository Date:2017-12-20 12/20/2017 MARK E Primary MARK E [place] [id number] E Insurance:MEDICARE HORNERDOB: [facility] PART A [facility] [id number] Hospital [place] [address]Hwh: Number: Repository [id number] (HP) Date:2017-12-20 12/20/2017 Secondary MARK E [place] Insurance:MEDICAIDPol [facility] Number: [id number] Hospital [id number] Repository Date:2017-12-20 12/20/2017 Tertiary NOT GIVENUNK [place] Insurance:SELF PAY [facility] Number: Effective Repository Date:2017-12-20 12/20/2017 MARK E Primary MARK E [place] [id number] E Insurance:MEDICARE HORNERDOB: [facility] PART A [facility] [id number] General Hospital [address]Cyf: Number: Repository [id number] (HP) Date:2017-12-20 12/20/2017 Secondary MARK E [place] Insurance:MEDICAIDPol [facility]AREERD[facility]: Replaced By [facility] ic Number: [id number] [id number] Repository Date:2017-12-20 12/20/2017 Tertiary NOT GIVENUNK [place] Insurance:SELF PAY [facility] Number: Effective Repository Date:2017-12-20 12/20/2017 MARK E Primary MARK E [place] [id number] E Insurance:MEDICARE HORNERDOB: [facility] PART A [facility] [id number] General Hospital [address]Onc: Number: Repository [id number] (HP) Date:2017-12-20 12/20/2017 Secondary MARK E [place] Insurance:MEDICAIDPol HORNERDOB: Replaced By [facility] ic Number: [id number] Hospital [id number] Repository Date:2017-12-20 12/20/2017 Tertiary NOT GIVENUNK [place] Insurance:SELF PAY [facility] Number: Effective Repository Date:2017-12-20 12/10/2017 MARK E Primary MARK E [place] [id number] E Insurance:MEDICARE HORNERDOB: [facility] PART A [facility] [id number] General Hospital [address]Iud: Number: Repository [id number] (HP) Date:2017-12-10 12/10/2017 Secondary MARK E [place] Insurance:MEDICAIDPol HORNERDOB: Replaced By [facility] ic Number: [id number] Hospital [id number] Repository Date:2017-12-10 12/10/2017 Tertiary NOT GIVENUNK [place] Insurance:SELF PAY [facility] Number: Effective Repository Date:2017-12-10 11/25/2017 MARK E Primary MARK E [place] [id number] Insurance:MEDICARE HORNERDOB: [facility] PART A [facility] [id number], Number: Repository [place] [address]Dbg: [id number] Date:2017-09-28 () 11/25/2017 Secondary MARK E [place] Insurance:MEDICAIDPol HORNERDOB: Replaced By [facility] ic Number: [id number] Hospital [id number] Repository Date:2017-09-28 11/25/2017 Tertiary NOT GIVENUNK [place] Insurance:SELF PAY Replaced By [facility] Number: Effective Repository Date:2017-09-28 11/25/2017 Mark E Primary Mark E [place] [id number] Insurance:MEDICAIDPol HornerDOB: [facility] icy Number: [id number] Memorial Hospital, [id number] Repository [place] [address]Itx: Date:2017-11-25 () 11/25/2017 Secondary Mark E [place] Insurance:MEDICARE HornerDOB: Community PART A [facility] [id number] Hospital Number: Repository [id number] Date:2017-11-25 11/25/2017 Tertiary NOT GIVENUNK [place] Insurance:SELF PAY Replaced By [facility] Number: Effective Repository Date:2017-11-25 11/25/2017 Mark E Primary Mark E [place] [id number] [facility] Insurance:MEDICAIDPol [facility] Number: [id number] Memorial Hospital, [id number] Repository [place] [address]Xba: Date:2017-11-25 () 11/25/2017 Secondary Mark E [place] Insurance:MEDICARE HornerDOB: Community PART A [facility] [id number] Hospital Number: Repository [id number] Date:2017-11-25 11/25/2017 Tertiary NOT GIVENUNK [place] Insurance:SELF PAY Replaced By [facility] Number: Effective Repository Date:2017-11-25
== END ==
PROVIDERS: Family Provider Family Medicine Geriatric Medicine; PCP Family Medicine Geriatric Medicine; Referring Provider Family Medicine Geriatric Medicine; Visit Provider Family Medicine Geriatric Medicine
DX: N17.9 Acute kidney failure, unspecified (principal)
CPT/HCPCS: 36415; 80048; 85025

== ENCOUNTER → 2018-11-15 13:10 | Outpatient (CLI) | payer MEDICARE, MEDICAID, SELFPAY ==
[2018-10-26 01:06] VITALS: BMI 15.0
--- NOTE | 2018-11-15 13:14 | ECHOD_ITS ---
Reason For Study: SOB Procedure This was a 2D Doppler, Color Flow transthoracic echocardiogram. Technically difficult study due to patient body habitus. All images obtained from subcostal window. Exam performed in department. Left Ventricle Normal size and thickness. The estimated ejection fraction is 60 %. Stage 1 diastolic dysfunction. No regional wall motion abnormalities noted. Right Ventricle Normal size and thickness. Normal systolic function. Atria Normal left atrium. Normal right atrium. Normal atrial septum. Mitral Valve The mitral valve is structurally normal. No prolapse or stenosis seen. Tricuspid Valve Normal tricuspid valve. Trivial tricuspid valve insufficiency. Right ventricular systolic pressure estimated to be 38 mmHg. Mild pulmonary hypertension. Aortic Valve Trisinus/trileaflet aortic valve. Mild focal aortic valve thickening. There is no aortic stenosis. Trivial aortic valve insufficiency. Pulmonic Valve Normal pulmonic valve. Great Vessels Normal aortic root. Normal arch. Normal inferior vena cava. Inferior vena cava collapse with sniff. Pericardium/Pleural No pericardial effusion. MMode/2D Measurements & Calculations LVIDd: 4.1 cm IVSd: 1.1 cm Ao root diam: 3.6 cm LVIDs: 3.0 cm LVPWd: 0.83 cm LA dimension: 2.1 cm FS: 26.8 % Time Measurements MV dec time: 0.18 sec Doppler Measurements & Calculations MV E max sherwin: 56.2 cm/sec Lat Peak E' Sherwin: 6.8 cm/sec Med Peak E' Sherwin: 8.3 cm/sec MV A max sherwin: 71.3 cm/sec E/E' lat: 8.3 E/E' med: 6.8 MV E/A: 0.79 Ao V2 max: 102.7 cm/sec LV V1 max: 83.4 cm/sec PA V2 max: 100.1 cm/sec Ao max P.2 mmHg LV V1 max P.8 mmHg Ao V2 mean: 67.4 cm/sec LV V1 mean P.2 mmHg Ao mean P.1 mmHg LV V1 mean: 51.5 cm/sec Ao V2 VTI: 18.0 cm LV V1 VTI: 10.9 cm TR max sherwin: 287.6 cm/sec TR max P.1 mmHg Interpretation Summary The estimated ejection fraction is 60 %. Stage 1 diastolic dysfunction. Trivial tricuspid valve insufficiency. Right ventricular systolic pressure estimated to be 38 mmHg. Mild pulmonary hypertension. Trivial aortic valve insufficiency. Compared to echo report dated 01/07/2015, no appreciable changes noted. Ordering Physician: Jalen Rodríguez Referring Physician: Jalen Rodríguez Chi Performed By: Yung Delatorre RCS
--- OUTSIDE RECORDS SUMMARY | 2019-01-17 17:38 | XMS RPT_ITS ---
:1950 Author Organization OHIP Support Name Relationship Address Phone R Unavailable Unavailable Unavailable DAKOTA DELEON Unavailable [address] + [place] [address] R Unavailable Unavailable Unavailable DAKOTA DELEON Unavailable [address] + [place] [address] R Unavailable Unavailable Unavailable DAKOTA DELEON Unavailable [address] + [place] [address] R Unavailable Unavailable Unavailable DAKOTA DELEON Unavailable [address] + [place] [address] R Unavailable Unavailable Unavailable DAKOTA DELEON Unavailable [address] + [place] [address] R Unavailable Unavailable Unavailable DAKOTA DELEON Unavailable [address] + [place] [address] R Unavailable Unavailable Unavailable DAKOTA DELEON Unavailable [address] + [place] [address] R Unavailable Unavailable Unavailable DAKOTA DELEON Unavailable [address] + [place] [address] R Unavailable Unavailable Unavailable DAKOTA DELEON Unavailable [address] + [place] [address] R Unavailable Unavailable Unavailable DAKOTA DELEON Unavailable [address] + [place] [address] R Unavailable Unavailable Unavailable DAKOTA DELEON Unavailable [address] + [place] [address] R Unavailable Unavailable Unavailable DAKOTA DELEON Unavailable Unavailable + R Unavailable Unavailable Unavailable DAKOTA DELEON Unavailable Unavailable + R Unavailable Unavailable Unavailable R Unavailable Unavailable Unavailable R Unavailable Unavailable Unavailable R Unavailable Unavailable Unavailable R Unavailable Unavailable Unavailable HEIKE OCHOA Unavailable [address] + [place] [address] R Unavailable Unavailable Unavailable OCHOA, HEIKE Unavailable [address] + [place] [address] R Unavailable Unavailable Unavailable OCHOA, HEIKE Unavailable [address] + [place] [address] R Unavailable Unavailable Unavailable OCHOA, HEIKE Unavailable [address] + [place] [address] R Unavailable Unavailable Unavailable OCHOA, HEIKE Unavailable [address] + [place] [address] R Unavailable Unavailable Unavailable OCHOA, HEIKE Unavailable [address] + [place] [address] R Unavailable Unavailable Unavailable OCHOA, HEIKE Unavailable [address] + [place] [address] R Unavailable Unavailable Unavailable OCHOA, HEIKE Unavailable [address] + [place] [address] R Unavailable Unavailable Unavailable OCHOA, HEIKE Unavailable [address] + [place] [address] R Unavailable Unavailable Unavailable OCHOA, HEIKE Unavailable [address] + [place] [address] R Unavailable Unavailable Unavailable OCHOA, HEIKE Unavailable [address] + [place] [address] R Unavailable Unavailable Unavailable OCHOA, HEIKE Unavailable [address] + [place] [address] R Unavailable Unavailable Unavailable R Unavailable Unavailable Unavailable BAXTON, MARCIO Unavailable [address] [facility] + [place] [address] OCHOA, HEIKE Unavailable [address] + [place] [address] R Unavailable Unavailable Unavailable BAXTON, MARCIO Unavailable [address] [facility] + [place] [address] OCHOA, HEIKE Unavailable [address] + [place] [address] R Unavailable Unavailable Unavailable Care Team Providers Name Role Phone Salas Ocampo Attending Unavailable Delma Frey Referring Unavailable Marcos, Jalen Chi Primary Care Unavailable Dakota Gonzales Admitting Unavailable Yelena Valdez Attending Unavailable Kay Kamara Consulting Unavailable Bakhous, Aziz Consulting Unavailable Agyepong, Dakota Admitting Unavailable Agyepong, Dakota Attending Unavailable Marcos, Jalen Chi Primary Care Unavailable Sementi, Yelena Consulting Unavailable Agyepong, Dakota Admitting Unavailable Marcos, Jalen Chi Primary Care Unavailable Sementi, Yelena Consulting Unavailable Sementi, Yelena Attending Unavailable Agyepong, Dakota Admitting Unavailable Sementi, Yelena Attending Unavailable Marcos, Jalen Chi Primary Care Unavailable Anh Kay Consulting Unavailable Bakhous, Aziz Consulting Unavailable Sementi, Yelena Consulting Unavailable Agyepong, Dakota Admitting Unavailable Sementi, Yelena Attending Unavailable Marcos, Jalen Chi Primary Care Unavailable Anh Kay Consulting Unavailable Bakhous, Aziz Consulting Unavailable Sementi, Yelena Consulting Unavailable Agyepong, Dakota Admitting Unavailable Sementi, Yelena Attending Unavailable Marcos, Jalen Chi Primary Care Unavailable Anh Kay Consulting Unavailable Bakhous, Aziz Consulting Unavailable Sementi, Yelena Consulting Unavailable Agyepong, Dakota Admitting Unavailable Kenneth Sanchze Attending Unavailable Marcos, Jalen Chi Primary Care Unavailable Anh, Kay Consulting Unavailable Bakhous, Aziz Consulting Unavailable Sementi, Yelena Consulting Unavailable Marcos, Jalen Chi Attending Unavailable Marcos, Jalen Chi Referring Unavailable Marcos, Jalen Chi Primary Care Unavailable Marcos, Jalen Chi Attending Unavailable Marcos, Jalen Chi Referring Unavailable Marcos, Jalen Chi Primary Care Unavailable Yemi Leal Attending Unavailable Prah, Dakota Referring Unavailable Marcos, Jalen Chi Attending Unavailable Marcos, Jalen Chi Primary Care Unavailable Marjorie Cárdenas Attending Unavailable Kemar Mckeon Attending [...] Care Unavailable Chrissy, Kam Consulting Unavailable Paintsil, Briggs Attending Unavailable Chrissy, Kam Admitting Unavailable Jose [...] Primary Care Unavailable Stefani Little Attending Unavailable Aj Jimenez Attending Unavailable Marcos, [...] ATTENDING STATUS SOURCE Unknown J96.01 - Acute Daniel, Kenneth Active [place] 9 respiratory failure Community with hypoxia / Hospital J96.01(ICD-10) Repository Unknown R94.31 - Abnormal [place], Active [place] 9 electrocardiogram [facility] [ECG] [EKG] / Hospital R94.31(ICD-10) Repository Unknown J44.9 - Chronic Salas Ocampo Active [place] 8 obstructive pulmonary Community disease, unspecified / Hospital J44.9(ICD-10) Repository Active Vomiting, unspecified AMY CORRALES Active [place] [facility] / R11.10(ICD-10) Clinic Other [place] Repository Admitting Unknown / UNK(Unknown) Jeaneth REYES Active [facility] 8 diagnosis [facility] Repository Unknown I10 - Essential Marcos, Jalen Chi Active [place] 8 (primary) hypertension Community / I10(ICD-10) Hospital Repository Unknown E11.9 - Type 2 Marcos, Jalen Chi Active [place] 8 diabetes mellitus Community without complications Hospital / E11.9(ICD-10) Repository Unknown E55.9 - Vitamin D Marcos, Jalen Chi Active [place] 8 deficiency, Community unspecified / Hospital E55.9(ICD-10) Repository Unknown Z23 - Encounter for Tk Active [place] 8 immunization / [facility] Z23(ICD-10) Hospital Repository Unknown J43.1 - Panlobular Tk, Active [place] [facility] emphysema / [facility] J43.1(ICD-10) Hospital Repository Unknown I25.10 - Aj Jimenez Active [place] 8 Atherosclerotic heart Community disease of [facility] coronary artery Repository without angina pectoris / I25.10(ICD-10) Unknown N18.4 - Chronic kidney Aj Jimenez Active [place] 8 disease, stage 4 Community (severe) / Hospital N18.4(ICD-10) Repository Unknown J44.1 - Chronic Aj Jimenez Active [place] 8 obstructive pulmonary Community disease with (acute) Hospital exacerbation / Repository J44.1(ICD-10) Unknown 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 [place], [place], [address] CBC W/DIFF, AUTOMATED Collected: 11/16/2018 Status: F Source: [place] 10:27 AM [facility] REPOSITORY TYPE CODE TESTS RESULT OUT OF [...] LYMPHOPENIA NOTED. Performed By: #### L100.0100 #### [facility] [address] [place], [address] ECHOCARDIOGRAM COMPLETE Observed: 11/16/2018 Status: F Source: [place] 9:21 AM [facility] REPOSITORY [facility] [address] [place] [address] Echo Complete 11/15/18 1358 MR#: [id number] Acct: [id number] Name: MARK SERRANO Rep #: [id number] : 1950 68 From: Aj Jimenez MD Attending Dr: Marcos ABRAHAM,Jalen Mary Status: REG CLI Ordering Dr: Jalen Rodríguez MD Date: 11/15/18 Location: [facility] Sex: M C Admitted: Reason For Study: [...] Date Dictated: 11/15/18 1358 Date Transcribed: 11/16/18919 Pizza Delivery: Signed PROGRESS Observed: 11/14/2018 Status: COMPLETED Source: [place] 8:15 PM [facility] REPOSITORY [facility] ID: [id number] Author: Evelyn Gillespie (Pa) Service: (none) Author Type: Physician Motorcycle Police Officer Type: Progress Notes Filed: 11/14/2018 8:28 PM Note Text: FOLLOW UP VISIT - ENDOSCOPY NAME: Mark Serrano [facility] NO.: [id number] DATE OF SERVICE: 11/11/2018 : 1950 REFERRING PHYSICIAN: Jacqui Cadet MD Mark is a patient I am following with Dr. Kamara. Patient recently presented to [facility] and was admitted with complaints of [...] with more than 50% of the total tbht-hn-alha time of the visit in counseling / coordination of care. CECI Slaughter Observed: 11/11/2018 Status: COMPLETED Source: [place] 9:30 AM [facility] REPOSITORY Office Visit (GENSWS) MARK SERRANO ([id number]) 1950 M Date Time Provider Department 1/18/19 [...] to your office visit today with the [facility] General Surgeons. INSTRUCTIONS FOR PEPTIC ULCER DISEASE [...] you should contact our office immediately @ [phone] and ask to be transferred to the General Surgery department. Evelyn Gillespie PA-C 11/14/2018 8:28 PM Signed FOLLOW UP VISIT - ENDOSCOPY NAME: Mark Birdie [facility] NO.: [id number] DATE OF SERVICE: 11/11/2018 : 1950 REFERRING PHYSICIAN: Jacqui Cadet MD Mark is a patient I am following with Dr. Kamara. Patient recently presented to [facility] and was admitted with complaints of [...] with more than 50% of the total grpn-au-xazn time of the visit in counseling / coordination of care. Evelyn Gillespie PA-C Referring Provider: JACQUI CADET [[id number]] Allergies As of Date: 11/11/2018 Noted Allergy [...] to your office visit today with the [facility] General Surgeons. INSTRUCTIONS FOR PEPTIC ULCER DISEASE [...] you should contact our office immediately @ [phone] and ask to be transferred to the General Surgery department. Follow-up and Disposition History Recorded Encounter Status:Closed by EVELYN GILLESPIE PA-C on 11/14/18 CBC W/DIFF, AUTOMATED Collected: 11/09/2018 Status: F Source: [place] 5:34 PM [facility] REPOSITORY TYPE CODE TESTS RESULT OUT OF [...] Performed By: #### L100.0100 #### [facility] [address] [place], [address] BASIC METABOLIC Collected: 11/09/2018 Status: F Source: [place] PROFILE ([facility]) 5:34 PM [facility] REPOSITORY TYPE CODE TESTS RESULT OUT OF [...] Performed By: #### L500.2500 #### [facility] [address] [place], [address] [facility] Observed: 11/03/2018 Status: COMPLETED Source: [place] 12:00 AM [facility] REPOSITORY Telephone (CELLFORSWS) MARK SERRANO ([id number]) 1950 M Date Time Provider Department 11/03/18 KAY KAMARA RadiusS During your visit today, we recorded the following information about you: Ian Shafer LPN 11/03/2018 8:28 AM Signed Please contact patient for post op OV [facility] with Amanda. Joan Orozco 11/03/2018 9:05 [...] DISCHARGE SUMMARY Observed: 10/30/2018 Status: F Source: [place] 2:40 PM [facility] REPOSITORY [facility] Medical Records Department [address] [facility] [place] [address] Discharge Summary 10/30/18 1417 MR#: [id number] Acct: [id number] Name: MARK SERRANO Rep #: [id number] : 1950 68 From: Es Valdez DO PCP: Marcos ABRAHAM,Jalen Chi Status: ADM IN Location: [place] [address] Discharge Date and Diagnosis - Problem List [...] 1+ regurg per echo 01/21/2015 done @ [facility] Atherosclerosis of coronary artery of hoh heart without angina pectoris (Chronic) 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 Nicotine abuse (Chronic) - resolved....quit smoking Hypertension (Chronic) CKD (chronic kidney disease) stage 4, GFR 15-29 ml/min (Chronic) Following with Dr. Chapman [facility] Course and Treatment Imaging Results: Clinical Impression(s) from Imaging Studies Chest X-Ray 10/25/18 20:17 IMPRESSION: No acute cardiopulmonary abnormalities. Stable COPD with mild fibrosis. Electronically Signed: Taryn Cummins MD at 21:59 EST Tel Direct: [phone], Service support , Abdomen/Pelvis CT 10/27/18 05:37 [...] Ned Denny MD at 12:43 EST Tel [phone], Service support , KUB X-Ray 10/29/18 18:35 IMPRESSION: 1. Removal of enteric tube. No dilated loops of small bowel. Colonic gas confirmed. Electronically Signed: Geovanny Crockett MD at 18:59 EST , Service support , Dr. Kay Kamara-[facility] general surgery Dr. Webber and Dr. Velasquez[facility] Operations: None Procedures: EGD - Gastritis [...] to the emergency department at [facility] on 10/25/2018 complaining of increasing shortness [...] protein intact. He was seen by the manager community outreach prior to discharge and educated on a [...] no cyanosis This note was generated with [employer] dictation software. It may contain incorrect words, [...] [Prinivil] 5 mg PO QDAY 10/26/18 Tiotropium [place] [Spiriva 18 MCG] 1 cap INHALATION DAILY [...] applicable Code Visit Inpatient E AND M: 11022 Disch Hosp 10/30/18 1440 <Electronically signed by Es Valdez DO> Date Es Valdez DO Cosigner Signature (if applicable): Date CC: Yelena Valdez; Yoan Ochoa MD; Kay Kamara MD; Jalen Rodríguez MD Signed DISCHARGE INSTRUCTION Observed: 10/30/2018 Status: F Source: [place] 2:17 PM [facility] REPOSITORY [facility] Medical Records Department [address] [place] [address] [place] [address] Instructions for Home/Discharge Instructions 10/30/18 1402 MR#: [id number] Acct: [id number] Name: MARK SERRANO Rep #: [id number] : 1950 68 From: Es Valdez DO [...] [Prinivil] 5 mg PO QDAY 10/26/18 Tiotropium [place] [Spiriva 18 MCG] 1 cap INHALATION DAILY [...] Signed PROGRESS Observed: 10/30/2018 Status: COMPLETED Source: [place] 1:04 PM [facility] [place] REPOSITORY [facility] ID: [id number] Author: Kay Kamara Service: (none) Author Type: Physician Type: Progress Notes Filed: 10/30/2018 1:09 PM Note Text: OPERATIVE NOTATION FOR [facility] SURGICAL PROCEDURE. October 28, 2018 Mark Gutierreser 1950 [id number] male PROCEDURE: EGD WITH BIOPSY - 34611-970 SURGEON: Alva Kamara M.D. FACS ACADEMIC TUTOR: None DEPT: WLucho PROVIDER: [id number]=HvyglftKay Kamara MD POS: [id number] DIAGNOSIS: (R11.11) Vomiting without nausea, intractability of [...] Operative note dictated in the [facility] dictation system. Kay Kamara MD CBC-COMPLETE BLOOD CNT Collected: 10/30/2018 Status: F Source: [place] NO DIFF 6:15 AM [facility] REPOSITORY TYPE CODE TESTS RESULT OUT OF [...] Performed By: #### L100.0500 #### [facility] [address] [place], [address] BASIC METABOLIC Collected: 10/30/2018 Status: F Source: [place] PROFILE (BMP) 6:15 AM [facility] REPOSITORY TYPE CODE TESTS RESULT OUT OF [...] Performed By: #### L500.2500 #### [facility] [address] [place], [place], [address] ABDOMEN SINGLE VIEW Observed: 10/29/2018 Status: F Source: [place] 6:19 PM [facility] REPOSITORY [facility] Imaging Services [address] [place] [address] Abdomen Single View MR#: [id number] Acct: [id number] Name: MARK SERRANO Rep #: [id number] : 1950 M 68 From: Geovanny Crockett MD PCP: Marcos ABRAHAM,Jalen Chi Status: ADM IN Study: Abdomen Single View Date of Exam: 10/29/18 Exam# [id number] Ordering Dr: Es Valdez DO STUDY: X-RAY [...] , CC: Yelena Valdez; Jalen Rodríguez MD Pizza Delivery: Signed CBC-COMPLETE BLOOD CNT Collected: 10/29/2018 Status: F Source: [place] NO DIFF 6:57 AM [facility] REPOSITORY TYPE CODE TESTS RESULT OUT OF [...] Performed By: #### L100.0500 #### [facility] [address], [address] BASIC METABOLIC Collected: 10/29/2018 Status: F Source: [place] PROFILE (BMP) 6:57 AM [facility] REPOSITORY TYPE CODE TESTS RESULT OUT OF [...] Performed By: #### L500.2500 #### [facility] [address] [place], [address] 12 LEAD ELECTROCARDIOGRAM Observed: 10/28/2018 Status: F Source: [place] 2:42 PM [facility] REPOSITORY [facility] [address] [place] [address] 12 Lead EKG 10/27/18 0000 MR#: [id number] Acct: [id number] Name: MARK SERRANO Rep #: [id number] : 1950 68 From: Yemi Leal MD [...] Abnormal ECG Confirmed by STEVE ABRAHAM, YEMI ([id number]), editor continuity and script CRISTO SANTOS ([id number]) on 10/28/2018 2:42:32 PM Referred By: DR DUNCAN Confirmed By:YEMI LEAL MD 10/28/18 1442 Date Yemi Leal MD CC: Yelena Valdez; Dakota Gonzales MD; Jalen Rodríguez MD Signed OPERATIVE REPORT - Observed: 10/28/2018 Status: F Source: [place] ENDOSCOPY 11:55 AM [facility] REPOSITORY [facility] Medical Records Department [address] [place] [address] Operative Report - Endoscopy MR#: [id number] Acct: [id number] Name: MARK SERRANO Rep #: [id number] : 1950 68 From: Kay Kamara MD [...] by the physician, the nurse and the professional services specialist in the procedure room. Mental Status Examination: [...] present medications. Procedure Code(s): --- Professional --- 75769, Esophagogastroduodenoscopy, flexible, transoral; with biopsy, single or multiple CPT copyright 2017 [employer]. All rights reserved. The codes documented in this report are preliminary and upon dry kiln worker review may be revised to meet current compliance requirements. Kay Kamara MD 10/28/2018 11:55:22 AM This report has been signed electronically. Number of Addenda: 0 Note Initiated On: 10/28/2018 10:29 AM 10/28/18 1155 Date Kay Kamara MD Cosigner Signature: Date (if indicated) CC: Lindsey Velasquez MD; Yelena Valdez; Kay Kamara MD; Jalen Rodríguez MD Date Dictated: 10/28/18 1029 Date Transcribed: Pizza Delivery: HILL Signed IMMUNOHISTOCHEMISTRY Observed: 10/28/2018 Status: F Source: [place] 11:00 AM [facility] REPOSITORY Patient: MARK SERRANO : 1950 (68/M) Acct Num: [id number] Phys: Yelena Valdez Unit Num: [id number] Loc: U [id number] Specimen: [id number] Received: 10/28/18 - 1316 Spec Type: IMMUNO TISSUES 1 TISSUES: B. Stomach, NOS SPECIMEN INFORMATION: Tissue Source: B - Antral biopsy Clinical Info: Nausea and vomiting Specimen Number: [id number] CPT code: 88382 METHODOLOGY: Deparaffinized sections of prefer/formalin-fixed tissue or [...] their performance characteristics determined by [facility]. They may not have been cleared or approved by the U.S. Food and Drug Administration. The FDA has determined that such clearance or approval is not necessary. INTERPRETATION: B. Antral biopsy: Negative for Helicobacter pylori organisms. AM:hill 10/31/18 PHYSICIAN AND INSTITUTION [address] [address] Signed Alvaro Anguiano DO 10/31/18 <signature on file> Performed By: #### PIMM #### [facility] [address] [place] [address], [id number] CBC-COMPLETE BLOOD CNT Collected: 10/28/2018 Status: F Source: [place] NO DIFF 6:40 AM [facility] REPOSITORY TYPE CODE TESTS RESULT OUT OF [...] Performed By: #### L100.0500 #### [facility] [address] [place], [place], [address] BASIC METABOLIC Collected: 10/28/2018 Status: F Source: [place] PROFILE (BMP) 6:40 AM [facility] REPOSITORY TYPE CODE TESTS RESULT OUT OF [...] #### L500.2500, L501.2300, L501.5200 #### [facility] [address] [place], [place], [address] PHOSPHORUS Collected: 10/28/2018 Status: F Source: [place] 6:40 AM [facility] REPOSITORY TYPE CODE TESTS RESULT OUT OF RANGE REFERENCE UNITS LAB L501.2300 2.5-4.9 mg/dL High PHOS 5.0 Performed By: #### L500.2500, L501.2300, L501.5200 #### [facility] [address] [place], [address] MAGNESIUM Collected: 10/28/2018 Status: F Source: [place] 6:40 AM [facility] REPOSITORY TYPE CODE TESTS RESULT OUT OF RANGE REFERENCE UNITS LAB L501.5200 1.6-2.6 mg/dL Normal MG 1.9 Performed By: #### L500.2500, L501.2300, L501.5200 #### [facility] [address] [place], [address] EGD ([facility]) Observed: 10/28/2018 Status: F Source: [place] 12:00 AM [facility] REPOSITORY Patient: MARK SERRANO : 1950 (68/M) Acct Num: [id number] Phys: Yelena Valdez Unit Num: [id number] Loc: [facility] [id number] Specimen: [id number] Received: 10/28/18 - 1314 Spec [...] one cassette. / SJ:hill 10/28/18 TC:2 CPT: 61900 x3, 62017 HEADER OPERATION: EGD ([facility]) PRE-OP DIAGNOSIS: Nausea and vomiting, possible duodenal [...] Performed By: #### PEGD #### [facility] [address] [place], [address] CNOP Observed: 10/28/2018 Status: COMPLETED Source: [place] 12:00 AM [facility] REPOSITORY Operative Note (Enc) (GENSWS) Progress Notes: Kay Kamara MD 10/30/2018 1:09 PM Signed OPERATIVE NOTATION FOR [facility] SURGICAL PROCEDURE. October 28, 2018 Mark Serrano 1950 [id number] male PROCEDURE: EGD WITH BIOPSY - 39552-740 SURGEON: Alva Kamara M.D. FACS ACADEMIC TUTOR: None DEPT: WQ PROVIDER: [id number] Kamara MD POS: [id number]=[id number] DIAGNOSIS: (R11.11) Vomiting without nausea, intractability of [...] Operative note dictated in the [facility] dictation system. Kay Kamara MD Encounter Status:Closed by KAY KAMARA MD on 10/30/18 HH, HEMOGLOBIN AND Collected: 10/27/2018 Status: F Source: [place] HEMATOCRIT 9:03 PM [facility] REPOSITORY TYPE CODE TESTS RESULT OUT OF RANGE REFERENCE UNITS LAB L100.1300 13.0-16.5 g/dl Low HGB 10.0 LAB L100.1400 40-54 % Low HCT 32.8 Performed By: #### L100.0600 #### [facility] [address] [place], [address] CONSULTATION Observed: 10/27/2018 Status: F Source: [place] 6:13 PM [facility] REPOSITORY [facility] Medical Records Department [address] [place] [address] Consultation 10/27/18 1157 MR#: [id number] Acct: [id number] Name: MARK SERRANO Rep #: [id number] : 1950 68 From: Kay Kamara MD PCP: Jalen Rodríguez MD, Chi Status: ADM IN Y Location: [address] Reason for Consult Date of Consultation: [...] vomiting for which he was admitted to [facility] from 07/06/18 to 07/13/18. Discharge summary from [facility] revealed: Mr. Serrano was admitted with intractable [...] GI as outpatient. Upper GI report from [facility] on July 07, 2018 demonstrated the following findings: FINDINGS: Initial supervisor bonding film demonstrates a nonspecific bowel gas pattern. [...] DIAGNOSIS: See below SURGEON: Geovanny Sanders MD ACADEMIC TUTOR: Mino Petersen. SURGERY/PROCEDURE: Esophagogastroduodenoscopy with biopsies. ANESTHESIA: Monitored Anesthesia Care LOG ID: [id number]. PREOPERATIVE DIAGNOSES: 1. Nausea and vomiting. 2. [...] condition. Pathology from his upper endoscopy at [facility] on July 11, 2018 demonstrated mild gastritis [...] was performed. He recalls it happened in [place]. Patient underwent upper endoscopy Dr. David Price [...] 1+ regurg per echo 01/21/2015 done @ [facility] [place] Atherosclerosis of coronary artery of hoh heart without angina pectoris (Chronic) Nonobstructive CAD [...] 1+ regurg per echo 01/21/2015 done @ [facility] [place] Atherosclerosis of coronary artery of hoh heart without angina pectoris (Chronic) I25.10 Nonobstructive [...] gastric and duodenal distention-recently worked up in [place] felt to not truly be gastric outlet [...] He recalls he underwent surgery likely in [place] with a small bowel resection he states [...] versus peptic ulcer disease. Recent endoscopy in [place] demonstrated mild gastritis was H. pylori negative. [...] HEMOGLOBIN AND Collected: 10/27/2018 Status: F Source: REYNO HEMATOCRIT 2:42 PM [facility] REPOSITORY TYPE CODE TESTS RESULT OUT OF RANGE REFERENCE UNITS LAB L100.1300 13.0-16.5 g/dl Low HGB 10.6 LAB L100.1400 40-54 % Low HCT 34.2 Performed By: #### L100.0600 #### [facility] [address] [place], [address] 12 LEAD ELECTROCARDIOGRAM Observed: 10/27/2018 Status: F Source: REYNO 2:00 PM [facility] REPOSITORY [facility] [address] [place] [address] 12 Lead EKG 10/25/182014 MR#: [id number] Acct: [id number] Name: MARK SERRANO Rep #: [id number] : 1950 68 From: Yemi Leal MD Attending Dr: Yelena Valdez Status: ADM IN Ordering Dr: Janet Cotton MD Date: 10/25/18 Location: [facility] Sex: M C Admitted: 10/26/18 Test Reason [...] Abnormal ECG Confirmed by STEVE ABRAHAM, YEMI ([id number]), editor continuity and script RCISTO SANTOS ([id number]) on 10/27/2018 1:59:58 PM Referred By: ACACIA Confirmed By:YEMI LEAL MD 10/27/18 1400 Date Yemi Leal MD CC: Janet Cotton MD; Yelena Valdez; Jalen Rodríguez MD Signed URINALYSIS, COMPLETE Collected: 10/27/2018 Status: F Source: REYNO 1:15 PM [facility] REPOSITORY Order Comment: How was Urine Obtained? MAINTENANCE INSPECTOR TO SPECIFY TYPE CODE TESTS RESULT OUT [...] Performed By: #### L400.0001 #### [facility] [address] [place], [address] CREATININE, URINE Collected: 10/27/2018 Status: F Source: REYNO 1:15 PM [facility] REPOSITORY TYPE CODE TESTS RESULT OUT OF RANGE REFERENCE UNITS LAB L502.0300 NO RANGE EST. mg/dL Normal URINE 209.00 CREAT Performed By: #### L502.0300 #### [facility] [address] [place], [address] URINE SODIUM Collected: 10/27/2018 Status: F Source: JOSEPH 1:15 PM [facility] REPOSITORY TYPE CODE TESTS RESULT OUT OF RANGE REFERENCE UNITS LAB L501.5500 Not Establ. mmol/L Normal UR NA 28 Performed By: #### L501.5500 #### [facility] [address] [place], [address] CONSULTATION Observed: 10/27/2018 Status: F Source: JOSEPH 11:08 AM [facility] REPOSITORY [facility] Medical [facility] Department [address] [place] [address] Consultation 10/27/18 1053 MR#: [id number] Acct: [id number] Name: MARK SERRANO Rep #: [id number] : 1950 68 From: Lindsey Velasquez MD PCP: Marcos ABRAHAM,Jalen Mary Status: ADM IN Y Location: [place] [address] Problem List (1) Acute kidney injury superimposed on chronic kidney disease Status: Chronic (2) Hydronephrosis Status: Acute Consultation - Renal PCP/ Referring MD: Requesting physician: [] Primary care physician: Jalen Rodríguez MD - History of Present Illness History of Present Illness: The patient is a 68 year old M past medical history of Crohn's disease COPD, non-ST WA, hypertension, chronic kidney disease stage III/IV, history [...] seems around 1.8-2.0. 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 Currently has NG tube. [...] BREATH Albuterol/Ipratropium (Duoneb) 3 ml INHALATION Q4H.RT [facility] Last Admin: 10/27/18 06:48 Dose: Not Given Atorvastatin Calcium (Lipitor) 20 mg PO QHS [facility] Last Admin: 10/26/18 22:35 Dose: 20 mg Clonidine (Catapres) 0.1 mg PO Q6H PRN PRN Reason: sbp > 160 Clonidine HCl (Catapres-Tts1) 0.1 mg TRANSDERM. Q7D [facility] Last Admin: 10/27/18 10:11 Dose: 0.1 mg Guaifenesin (Mucinex) 1,200 mg PO BID [facility] Last Admin: 10/27/18 08:05 Dose: Not Given Hydralazine HCl (Apresoline Iv) 10 mg IV Q6H PRN PRN PRN Reason: Systolic BP >160 Last Admin: 10/27/18 06:57 Dose: 10 mg Azithromycin 500 mg/ Dextrose 255 mls @ 250 mls/hr IV Q24 [facility] Stop: 10/28/18 11:02 Last Admin: 10/27/18 10:11 Dose: 250 mls/hr Sodium Chloride () 250 mls @ 15 mls/hr IV .[id number] PRN PRN Reason: SALINE FLUSH Sodium Chloride () 1,000 mls @ 75 mls/hr IV .[id number] [facility] Last Admin: 10/27/18 10:11 Dose: 75 mls/hr Pantoprazole Sodium 40 mg/ (Sodium Chloride) 110 mls @ 330 mls/hr IV Q12 [facility] Last Admin: 10/27/18 07:31 Dose: 330 mls/hr Labetalol HCl (Trandate) 10 mg IV Q4H PRN PRN PRN Reason: Systolic BP >160 Lisinopril (Zestril) 5 mg PO DAILY [facility] Last Admin: 10/27/18 08:05 Dose: Not Given Loperamide HCl (Imodium) 2 mg PO DAILY [facility] Last Admin: 10/27/18 08:05 Dose: Not Given Lorazepam (Ativan) 1 mg IV Q8 PRN PRN Reason: ANXIETY Last Admin: 10/27/18 00:23 Dose: 1 mg Magnesium Hydroxide (Milk Of Magnesia) 30 ml PO DAILY PRN PRN Reason: Constipation Mesalamine (Lialda) 2.4 gm PO DAILYCM [facility] Last Admin: 10/27/18 08:05 Dose: Not Given Methylprednisolone (Solu-Medrol) 40 mg IV Q8 [facility] Last Admin: 10/27/18 05:09 Dose: 40 mg Nutritional Formula (Lactose Free) (Ensure Enlive) 120 ml PO 4X/DAY [facility] Last Admin: 10/27/18 08:05 Dose: Not Given [...] 1+ regurg per echo 01/21/2015 done @ [facility] Atherosclerosis of coronary artery of hoh heart without angina pectoris (Chronic) Nonobstructive CAD [...] Status: F Source: JOSEPH HEMATOCRIT 8:55 AM [facility] REPOSITORY TYPE CODE TESTS RESULT OUT OF RANGE REFERENCE UNITS LAB L100.1300 13.0-16.5 g/dl Low HGB 12.2 LAB L100.1400 40-54 % Low HCT 39.0 Performed By: #### L100.0600 #### [facility] [address] [place], [address] TYPE AND SCREEN Collected: 10/27/2018 Status: F Source: JOSEPH 8:55 AM [facility] REPOSITORY Order Comment: Reason for Type AND Screen/Red Cells: HEMORRHAGE, GI BLEED TYPE CODE TESTS RESULT OUT OF RANGE REFERENCE UNITS LAB B10.0800 A Normal BLOOD TYPE GEL POSITIVE LAB B100.4000 Normal Antibody NEGATIVE Screen Performed By: #### B101.7450 #### [facility] [address] [place], [address] ABDOMEN/PEL W ORAL CONT Observed: 10/27/2018 Status: F Source: JOSEPH ONLY 8:07 AM [facility] REPOSITORY [facility] [address] [place] [address] Abdomen/Pel W ORAL Cont Only MR#: [id number] Acct: [id number] Name: MARK SERRANO Rep #: [id number] : 1950 M 68 From: Ned Denny MD PCP: Marcos ABRAHAM,Jalen [facility] Status: ADM IN Study: Abdomen/Pel W ORAL Cont Only Date of Exam: 10/27/18 Exam# [id number] Ordering Dr: Es Valdez DO STUDY: CT [...] Ned Denny MD at 12:43 EST Tel [phone], Service support , CC: Yelena Valdez; Jalen Rodríguez MD Pizza Delivery: Signed CHEST 1 VIEW Observed: 10/27/2018 Status: F Source: REYNO (PORTABLE) 7:57 AM [facility] REPOSITORY [facility] [address] [place] [address] Chest 1 View (Portable) MR#: [id number] Acct: [id number] Name: MARK SERRANO Rep #: [id number] : 1950 M 68 From: Shanna Aguillon MD PCP: Jalen Rodríguez MD, Chi Status: ADM IN Study: Chest 1 View (Portable) Date of Exam: 10/27/18 Exam# [id number] Ordering Dr: Es Valdez DO STUDY: X-RAY [...] , CC: Yelena Valdez; Jalen Rodríguez MD Pizza Delivery: Signed ABDOMEN SINGLE VIEW Observed: 10/27/2018 Status: F Source: REYNO 7:57 AM [facility] REPOSITORY [facility] [address] [place] [address] Abdomen Single View MR#: [id number] Acct: [id number] Name: MARK SERRANO Rep #: [id number] : 1950 M 68 From: Jason Rocha PCP: Jalen Rodríguez MD, Chi Status: ADM IN Study: Abdomen Single View Date of Exam: 10/27/18 Exam# [id number] Ordering Dr: Es Valdez DO STUDY: X-RAY [...] , CC: Yelena Valdez; Jalen Rodríguez MD Pizza Delivery: Signed ABDOMEN SINGLE VIEW Observed: 10/27/2018 Status: F Source: REYNO (PORTABLE) 7:52 AM [facility] REPOSITORY [facility] [place] [address] [place] [address] Abdomen Single View (Portable) MR#: [id number] Acct: [id number] Name: MARK SERRANO Rep #: [id number] : 1950 68 From: Jason Rocha PCP: Jalen Rodríguez MD, Chi Status: ADM IN Study: Abdomen Single View (Portable) Date of Exam: 10/27/18 Exam# [id number] Ordering Dr: Es Valdez DO STUDY: X-RAY [...] , CC: Yelena Valdez; Jalen Rodríguez MD Pizza Delivery: Signed CBC W/DIFF, AUTOMATED Collected: 10/27/2018 Status: F Source: REYNO 6:50 AM [facility] REPOSITORY TYPE CODE TESTS RESULT OUT OF [...] Performed By: #### L100.0100 #### [facility] [address] [place], [address] BASIC METABOLIC Collected: 10/27/2018 Status: F Source: JOSEPH PROFILE (BMP) 6:50 AM [facility] REPOSITORY TYPE CODE TESTS RESULT OUT OF [...] Performed By: #### L500.2500 #### [facility] [address] [place], [place], [address] LIVER PROFILE Collected: 10/27/2018 Status: F Source: JOSEPH 6:50 AM [facility] REPOSITORY TYPE CODE TESTS RESULT OUT OF [...] #### L500.3400, L501.2300, L501.5200 #### [facility] [address] [place], [address] PHOSPHORUS Collected: 10/27/2018 Status: F Source: REYNO 6:50 AM [facility] REPOSITORY TYPE CODE TESTS RESULT OUT OF RANGE REFERENCE UNITS LAB L501.2300 2.5-4.9 mg/dL Normal PHOS 4.1 Performed By: #### L500.3400, L501.2300, L501.5200 #### [facility] [address] [place], [address] MAGNESIUM Collected: 10/27/2018 Status: F Source: JOSEPH 6:50 AM [facility] REPOSITORY TYPE CODE TESTS RESULT OUT OF RANGE REFERENCE UNITS LAB L501.5200 1.6-2.6 mg/dL Normal MG 1.8 Performed By: #### L500.3400, L501.2300, L501.5200 #### [facility] [address] [place], [address] HEMOGLOBIN A1C Collected: 10/27/2018 Status: F Source: JOSEPH 6:50 AM [facility] REPOSITORY TYPE CODE TESTS RESULT OUT OF RANGE REFERENCE UNITS LAB L501.9985 4.2-6.3 % Normal HGB A1C 6.0 Performed By: #### L501.9985 #### [facility] [address] [place], [address] ABDOMEN/PELVIS WITHOUT Observed: 10/27/2018 Status: F Source: JOSEPH CONT 5:38 AM [facility] REPOSITORY [facility] [address] [place] [address] Abdomen/Pelvis without Cont MR#: [id number] Acct: [id number] Name: MARK SERRANO Rep #: [id number] : 1950 M 68 From: Chuck Lyons MD PCP: Marcos ABRAHAM,Jalen Mary Status: ADM IN Study: Abdomen/Pelvis without Cont Date of Exam: 10/27/18 Exam# [id number] Ordering Dr: Dakota Gonzales MD STUDY: CT [...] CC: Dakota Gonzales MD; Jalen Rodríguez MD Pizza Delivery: Signed Observed: 10/26/2018 Status: F Source: JOSEPH CULTURE, SPUTUM 3:25 PM [facility] REPOSITORY Order Date: 10/26/18 CALLED [facility] 10/26/18 4294 TO COLLECT SAMPLE Comfort Jordanmaye. Gram Stain Acceptable Specimen? Yes (<25 Epithelial cells per/lpf) Gram Stain 3+ White Blood Cells Rare Gram positive cocci in clusters Resp. Culture #2 No Haemophilus, Streptococcus pneumoniae, beta-hemolytic Streptococcus or Staphylococcus aureus isolated. ORGANISM 1: Presumptive C albicans Amount Growth 1+ ORGANISM 2: Mixed Connie Amount Growth 2+ Performed By: #### M100.0800 #### [facility] [address] [place], [address] HISTORY AND PHYSICAL Observed: 10/26/2018 Status: F Source: JOSEPH EXAM 9:27 AM [facility] REPOSITORY [facility] Records Department [address] [place] [address] History and Physical 10/25/18 2308 MR#: [id number] Acct: [id number] Name: MARK SERRANO Rep #: [id number] : 1950 68 From: Dakota Gonzales MD PCP: Marcos ABRAHAM,Jalen Mary Status: ADM IN Y Location: [place] [address] Problem List (1) Stage 4 very severe [...] history of COPD; former smoker; non-ST elevation WA; bowel resection and hypertension who presented with [...] @ [facility] Atherosclerosis of coronary artery of hoh heart without angina pectoris (Chronic) Nonobstructive CAD [...] @ [facility] Atherosclerosis of coronary artery of hoh heart without angina pectoris (Chronic) I25.10 Nonobstructive [...] history of COPD; former smoker; non-ST elevation WA; bowel resection; colon resection and hypertension who [...] stable. 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 Continue outpatient follow-up. Irritable bowel syndrome/Crohn's Disease: Loperamide and Pentasa continued. DVT prophylaxis Subcutaneous heparin. Code Visit Inpatient E AND M: [id number] Init Hosp L3 10/26/18 0927 <Electronically signed by Dakota Gonzales MD> Date Dakota Gonzales MD Cosigner Signature: Date (if applicable) CC: Dakota Gonzales MD; Jalen Rodríguez MD Signed CBC W/DIFF, AUTOMATED Collected: 10/26/2018 Status: C Source: JOSEPH 8:20 AM [facility] REPOSITORY TYPE CODE TESTS RESULT OUT OF [...] Soledad arpan Performed By: #### L100.0100 #### [facility] [address] [place], [place], [address] BASIC METABOLIC Collected: 10/26/2018 Status: F Source: REYNO PROFILE (BMP) 8:20 AM [facility] REPOSITORY TYPE CODE TESTS RESULT OUT OF [...] Performed By: #### L500.2500 #### [facility] [address] [place], [address] Observed: 10/26/2018 Status: F Source: REYNO RESPIRATORY PANEL 4:10 AM [facility] MOLECULAR REPOSITORY RP PANEL ADENOVIRUS Not Detected [...] Performed By: #### M100.638 #### [facility] [address] [place], [address] EMERGENCY DEPARTMENT Observed: 10/26/2018 Status: F Source: REYNO SUMMARY 12:08 AM [facility] REPOSITORY [facility] Department [address] [place] [address] Emergency Department Summary 10/25/182021 MR#: [id number] Acct: [id number] Name: MARK SERRANO Rep #: [id number] : 1950 68 From: Janet Cotton MD PCP: Marcos ABRAHAM,Jalen [facility] Status: REG ER - ER Visit Summary [...] exacerbation, hypoxia This note was generated with [employer] dictation software. It may contain incorrect words, [...] your Primary Care Provider. Call [facility] ([phone]) or report to the closest Emergency Room. Call 911 if necessary. 10/26/18 0008 <Electronically signed by Janet Cotton MD> Date Janet Cotton MD Cosigner Signature (If Indicated): Date CC: Jalen Rodríguez MD BLOOD GASES BY CPS Collected: 10/25/2018 Status: F Source: JOSEPH 8:42 PM [facility] REPOSITORY TYPE CODE TESTS RESULT OUT OF [...] Performed By: #### L9000.0800 #### [facility] Point of Care [address] [place] [address] LACTIC ACID Collected: 10/25/2018 Status: F Source: REYNO 8:23 PM [facility] REPOSITORY Order Comment: Yes/No query for Sepsis Lactate Rule Y TYPE CODE TESTS RESULT OUT OF RANGE REFERENCE UNITS LAB L503.6005 0.4-2.0 mmol/L Normal LACTIC ACID 1.7 Performed By: #### L503.6005 #### [facility] [address] [place], [address] CHEST 1 VIEW Observed: 10/25/2018 Status: F Source: REYNO (PORTABLE) 8:18 PM [facility] REPOSITORY [facility] [address] [place] [address] Chest 1 View (Portable) MR#: [id number] Acct: [id number] Name: MARK SERRANO Birdie Rep #: [id number] : 1950 M 68 From: Taryn Cummins MD PCP: Marcos ABRAHAM,Jalen Chi Status: REG ER Study: Chest 1 View (Portable) Date of Exam: 10/25/18 Exam# [id number] Ordering Dr: Janet Cotton MD STUDY: X-RAY [...] Cummins MD at 21:59 EST Tel Direct: [phone], Service support , CC: Janet Cotton MD; Jalen Rodríguez MD Pizza Delivery: Signed CBC W/DIFF, AUTOMATED Collected: 10/25/2018 Status: F Source: JOSEPH 8:15 PM [facility] REPOSITORY TYPE CODE TESTS RESULT OUT OF [...] Performed By: #### L100.0100 #### [facility] [address] [place], [address] BASIC METABOLIC Collected: 10/25/2018 Status: F Source: REYNO PROFILE (BMP) 8:15 PM [facility] REPOSITORY TYPE CODE TESTS RESULT OUT OF [...] By: #### L500.2500, L501.4010 #### [facility] [address] [place], [address] TROPONIN-I Collected: 10/25/2018 Status: F Source: REYNO 8:15 PM [facility] REPOSITORY TYPE CODE TESTS RESULT OUT OF RANGE REFERENCE UNITS LAB L501.4010 <0.045 ng/mL Normal < 0.015 TROPONIN-I Result Comment: TROPONIN-I EXPECTED VALUES <0.045 Negative 0.045 - 0.590 Consistent with Cardiac Damage > OR = 0.600 Critical Value Not every elevated troponin is indicative of WA. These values should be used with clinical judgement in examining the patient's clinical picture for diagnosis. To establish a diagnosis of WA versus myocardial injury, there must be a demonstrated rise and/or fall in the troponin values, in addition to ischemic symptoms, EKG changes, new regional wall motion abnormality, and/or angiographical evidence. PLEASE NOTE: REFERENCE RANGES EDITED 18 Performed By: #### L500.2500, L501.4010 #### [facility] [address] [place], [address] 6 MINUTE WALK TEST Observed: 10/04/2018 Status: F Source: REYNO 4:10 PM [facility] REPOSITORY [facility] [address] [place] [address] MR#: [id number] Acct: [id number] Name: MARK SRERANO Rep #: [id number] : 1950 68 From: Salas Ocampo MD Referring Dr: Delma Frey NP Date: Ordering Dr: Sex: M C Location: PSN PSN 6 Minute Walk Test - 6 Minute Walk Test 6 Minute Walk Test: 6 Minute Walk Test PSN:6-Minute Walk Test Start: 10/04/18 14:02 Freq: Status: Active Protocol: RESP.6MINW Document 10/04/18 12:27 SMB (Rec: 10/04/18 14:05 B [id number]) 6 Minute Walk Test Date Performed 10/04/18 [...] CC: Date Dictated: 10/04/181607 Date Transcribed: 10/04/181607 Pizza Delivery: Salas Ocampo Signed PULMONARY VISIT REPORT Observed: 09/28/2018 Status: F Source: REYNO 9:58 AM [facility] REPOSITORY [facility] [place] [address] [place] [address] OFFICE VISIT Date of Service: 09/28/18 MR#: [id number] Acct: [id number] Name: MARK SERRANO Rep #: [id number] : 1950 Provider: Salas Ocampo MD Age/Sex: 68/M Location: [place] Status: Signed Assessment AND Plan Problems 1. [...] Orders: Plan Detail Follow Up 4 Months ([facility]) HPI 3 M FU: Chief Complaint: Shortness [...] the hospital for his breathing issue in [place]. Patient states he feels improved from that [...] DAILY #30 inh 06/23/18 [Rx Confirmed 09/28/18] [facility] Medical History Non-rheumatic tricuspid valve insufficiency (Chronic) Atherosclerosis of coronary artery of hoh heart without angina pectoris (Chronic) Nicotine abuse [...] CONSULT PROG Observed: 07/13/2018 Status: COMPLETED Source: MOLINE 4:59 PM [facility] OTHER CAMPUS REPOSITORY HNO ID: [id number] Author: Geovanny Sanders Service: Gastroenterology Author Type: [...] RECTAL q 4 H PRN phenol 1 [place] (CHLORASEPTIC) 1 [place] MUCOUS MEMBRANE (TOPICAL MOUTH AND THROAT) q [...] CASE MANAGEM Observed: 07/13/2018 Status: COMPLETED Source: MOLINE 1:29 PM [facility] OTHER [facility] REPOSITORY HNO ID: [id number] Author: Lalita Ferris) DEYVI Ritter Service: Care Management Author Type: Registered Nurse Type: Care Mgt Progress Note Filed: 07/13/2018 1:31 PM Note Text: CARE MANAGEMENT DISCHARGE NOTE SERVICE DATE: 07/13/2018 SERVICE TIME: 1:29 PM LOS: 6 days Admission Date: 07/06/2018 DISCHARGE ARRANGEMENT (list agency and phone number) Home Provider: yaima Phone: [phone] CAREGIVER ASSESSMENT: Caregiver is ready, willing and [...] 13, 2018 TIME: 1:29 PM PAGER/CONTACT #: [phone] CNDS Observed: 07/13/2018 Status: COMPLETED Source: MOLINE 11:43 AM [facility] OTHER CAMPUS REPOSITORY HNO ID: [id number] Author: Amy Corrales Service: Hospital Medicine Author [...] Hypertension COPD (chronic obstructive pulmonary disease) ([facility]) Nicotine use disorder, F17.2 Resolved Problems: Bowel obstruction ([facility]) SBO (small bowel obstruction) ([facility]) Hospital Course as Described to the Patient: [...] Component Value Units Date/Time MAGNESIUM BLOOD (AK,AV,EU,FV,HL,GILES,MM,SP) [[id number]] Collected: 07/13/18229 Order Status: Sent Lab Status: No result Specimen: Blood from BLOOD PHOSPHORUS BLOOD (AK,AV,EU,FV,HL,GILES,MM,SP) [[id number]] Collected: 07/13/18229 Order Status: Sent Lab Status: No result Specimen: Blood from BLOOD MAGNESIUM BLOOD (AK,AV,EU,FV,HL,GILES,MM,SP) [[id number]] Collected: 07/11/18253 Order Status: Sent Lab Status: No result Specimen: Blood from BLOOD PHOSPHORUS BLOOD (AK,AV,EU,FV,HL,GILES,MM,SP) [[id number]] Collected: 07/11/18253 Order Status: Sent Lab Status: [...] Cristy Pena Consulting: Kay Cummings Consulting: Christoph Robert None Patient Condition @ Discharge: Stable Discharge [...] pena NUTRITION Observed: 07/13/2018 Status: COMPLETED Source: MOLINE 10:52 AM [facility] REPOSITORY HNO ID: [id number] Author: Maris Patrick RD Service: NST-Nutrition Support [...] reviewed GS/GI signed off DC TPN in [facility] Monitor oral intake, encouraged grazing Maris Patrick, [facility] NST--> [id number] CASE MANAGEM Observed: 07/13/2018 Status: COMPLETED Source: MOLINE 10:14 AM [facility] REPOSITORY HNO ID: [id number] Author: Lalita (Rn) Stone RN Service: Care [...] 13, 2018 TIME: 10:14 AM PAGER/CONTACT #: [phone] PROGRESS Observed: 07/13/2018 Status: COMPLETED Source: MOLINE 6:52 AM [facility] OTHER CAMPUS REPOSITORY HNO ID: [id number] Author: Mojgan ([facility]) Megan Service: General Surgery Author Type: Nurse [...] - 07/13/1859 07/13/18699 - 07/14/18 0659 Shift 0415-3519 8894-0576 8065-5746 24 Hour Total 4983-7658 0518-2853 9014-1395 24 Hour Total I N T A [...] RECTAL q 4 H PRN phenol 1 [place] (CHLORASEPTIC) 1 [place] MUCOUS MEMBRANE (TOPICAL MOUTH AND THROAT) q [...] Note: Added automatically from request for surgery [id number] - Bowel obstruction (HCC) 07/07/2018 - SBO (small bowel obstruction) (HCC) 07/07/2018 - Nicotine use disorder, F17.2 07/07/2018 - Hypertension - COPD (chronic obstructive pulmonary disease) ([facility]) 68 year old male with SBO, significant [...] questions or concerns Mon-Fri 6a-5p please page [phone]. After 5pm and on Weekends and Holidays, please page [phone]. HEMOGRAM Collected: 07/13/2018 Status: F Source: [facility] 4:42 AM HEALTH SYSTEM REPOSITORY TYPE CODE [...] MPV 11.2 Performed By: #### CBC1 #### [address] [address] NURSING PROG Observed: 07/13/2018 Status: COMPLETED Source: [facility] 4:00 AM CLINIC OTHER CAMPUS REPOSITORY HNO ID: [id number] Author: Nayeli (Rn) DEYVI Walls Service: Nursing Author Type: Registered Nurse Type: Nursing Progress Note Filed: 07/13/2018 4:10 AM Note Text: Nursing Progress Note Patient Name: Mark Serrano Patient Location: [place] [address] [address]* Patient refusing to have home inhaler put [...] MDRD GFR Collected: 07/13/2018 Status: F Source: [facility] 2:30 AM HEALTH SYSTEM REPOSITORY TYPE CODE TESTS RESULT OUT OF RANGE REFERENCE UNITS LAB GFRFN(LOINC >60mL/min/1.73m ) 2 eGFR 49.68 Result Comment: If the patient is , multiply the result by 1.210. Performed By: #### GFR #### [place] [address] BASIC PANEL Collected: 07/13/2018 Status: F Source: [facility] 2:30 AM HEALTH SYSTEM REPOSITORY TYPE CODE [...] Gap 9 Performed By: #### P8 #### [place] [address] MAGNESIUM BLOOD Collected: 07/13/2018 Status: F Source: [facility] 2:30 AM HEALTH SYSTEM REPOSITORY TYPE CODE TESTS RESULT OUT OF REFERENCE UNITS RANGE LAB MAG(LOINC) 1.6-2.6 mg/dL Magnesium Blood 2.2 Performed By: #### MAG #### [place] [address] PHOSPHORUS BLOOD Collected: 07/13/2018 Status: F Source: [facility] 2:30 AM HEALTH SYSTEM REPOSITORY TYPE CODE TESTS RESULT OUT OF REFERENCE UNITS RANGE LAB PHOS(LOINC 2.5-4.9 mg/dL ) Phosphorus Blood 3.3 Performed By: #### PHOS #### [place] [address] NURSING PROG Observed: 07/12/2018 Status: COMPLETED Source: [facility] 4:18 PM [facility] REPOSITORY HNO ID: [id number] Author: Winnie (Rn) DEYVI Jarvis Service: Nursing Author Type: Registered Nurse Type: Nursing Progress Note Filed: 07/12/2018 4:20 PM Note Text: Pt gave permission for RN to speak to Zoila Davalos. THERAPY NT Observed: 07/12/2018 Status: COMPLETED Source: [facility] 1:58 PM [facility] OTHER [place] REPOSITORY HNO ID: [id number] Author: Edith Murillo/Tin Garza Service: Occupational Therapy Author Type: Occupational Therapist Type: Therapy (PT/OT/Speech/Resp) Filed: 07/12/2018 2:03 PM Note Text: Occupational Therapy Evaluation SERVICE DATE: 07/12/2018 SERVICE TIME: 1325 to 1349 ROOM: [place] [address] Recommended Discharge Disposition: Home Recommended Discharge Disposition [...] daily living (ADL) Interventions Provided: Evaluation;Therapeutic Activity (90260) $ Evaluation-Low (33577) Billed Units: 1 unit Therapeutic Activity (57080) Treatment Minutes: 8 1 unit Skilled Intervention(s): [...] adaptive equipment to use if needed (ie. operators teacher to pick items off ground). Edu pt [...] Vomiting Added automatically from request for surgery [id number] - Bowel obstruction ([facility]) - SBO (small bowel obstruction) ([facility]) - Nicotine use disorder, F17.2 - Hypertension - COPD (chronic obstructive pulmonary disease) ([facility]) PAST MEDICAL HISTORY Diagnosis Date - Arthritis - COPD (chronic obstructive pulmonary disease) ([facility]) - Crohn's disease ([facility]) - Depression - Diarrhea - Emphysema - Hypertension - IBS (irritable bowel syndrome) - Unspecified essential hypertension PAST SURGICAL HISTORY Procedure Laterality Date - COLONOSCOP W/ OR W/O [facility] SPEC Colonoscopy x 4 - PAST SURGICAL [...] Environment Patient Lives With: (friend) Assistance Available: signal timer Entry To Home: Stairs;With Rail Number Of [...] CONSULT PROG Observed: 07/12/2018 Status: COMPLETED Source: [facility] 1:41 PM CLINIC OTHER CAMPUS REPOSITORY HNO ID: [id number] Author: Maryanne Castillo Service: General Surgery Author Type: Nurse Practitioner Type: Consult Progress Note Filed: 07/12/2018 1:45 PM Note Text: Continues to feel well. Minimal tenderness lower abdomen. Denies nausea, vomiting. +flatus, +BM. Gastric emptying study shows normal rate of gastric emptying of water. Okay to advance diet as tolerated from surgical standpoint. Maryanne Castillo APRN.[facility] Pager: [phone] Emergency General Surgery Service Pager: For questions or concerns Wed-Wed 6a-5p please page [phone]. After 5pm and on Weekends and Holidays, please page [phone]. NUTRITION Observed: 07/12/2018 Status: COMPLETED Source: [facility] 1:33 PM [facility] OTHER [place] REPOSITORY HNO ID: [id number] Author: Maris Patrick RD Service: NST-Nutrition Support [...] 61 kg) per day ? Maris Patrick, [facility] NST--> [id number] PROGRESS Observed: 07/12/2018 Status: COMPLETED Source: [facility] 1:22 PM [facility] OTHER [place] REPOSITORY HNO ID: [id number] Author: Barbara Baldwin Service: Hospital Medicine Author [...] RECTAL q 4 H PRN phenol 1 [place] (CHLORASEPTIC) 1 [place] MUCOUS MEMBRANE (TOPICAL MOUTH AND THROAT) q [...] Result History NM GASTRIC EMPTYING LIQUID (Order #[id number]) on 07/12/2018 Assessment/Plan Pt denies n/v/abd pain [...] CONSULT PROG Observed: 07/12/2018 Status: COMPLETED Source: [facility] 11:03 AM CLINIC OTHER CAMPUS REPOSITORY HNO ID: [id number] Author: Jovi Wilhelm Service: Gastroenterology Author Type: [...] RECTAL q 4 H PRN phenol 1 [place] (CHLORASEPTIC) 1 [place] MUCOUS MEMBRANE (TOPICAL MOUTH AND THROAT) q [...] Defer to general surgery SIGNATURE: Jovi Wilhelm APRN.SILK SPOOLER PATIENT NAME: Mark Serrano DATE: July 12, 2018 TIME: 11:03 AM PAGER: NM GASTRIC EMPTYING Observed: 07/12/2018 Status: F Source: [facility] 9:21 AM HEALTH SYSTEM REPOSITORY Performed at [facility] APPROVED BY: FELICIA DOVER MD GASTRIC EMPTYING [...] WATER. PROGRESS Observed: 07/12/2018 Status: COMPLETED Source: [facility] 9:03 AM [facility] OTHER CAMPUS REPOSITORY HNO ID: [id number] Author: Caro CortezRtSandy Hackett Service: Nuclear Medicine Author Type: Straw Hat Brusher Type: Progress Notes Filed: 07/12/2018 9:05 AM [...] safety can be found using this link: [email or web address] SIGNATURE: RT Marilin PATIENT NAME: Mark Serrano DATE: July 12, 2018 TIME: 9:04 AM PAGER/CONTACT #: PROGRESS Observed: 07/12/2018 Status: COMPLETED Source: [facility] 8:10 AM CLINIC OTHER CAMPUS REPOSITORY HNO ID: [id number] Author: Maryanne Castillo Service: General Surgery Author [...] 07/11/18699 - 07/12/1865807/12/18699 - 07/13/18 06 Shift 1402-0428 0685-2557 5588-0540 24 Hour Total 3222-9521 4467-5787 7932-7384 24 Hour Total I N T A [...] RECTAL q 4 H PRN phenol 1 [place] (CHLORASEPTIC) 1 [place] MUCOUS MEMBRANE (TOPICAL MOUTH AND THROAT) q [...] Note: Added automatically from request for surgery [id number] - Bowel obstruction ([facility]) 07/07/2018 - SBO (small bowel obstruction) ([facility]) 07/07/2018 - Nicotine use disorder, F17.2 07/07/2018 - Hypertension - COPD (chronic obstructive pulmonary disease) ([facility]) 68 year old male with SBO, significant [...] questions or concerns Mon-Fri 6a-5p please page [phone]. After 5pm and on Weekends and Holidays, please page [phone]. BASIC PANEL Collected: 07/12/2018 Status: F Source: [facility] 2:20 AM HEALTH SYSTEM REPOSITORY TYPE CODE [...] Gap 8 Performed By: #### P8 #### [place] [address] MAGNESIUM BLOOD Collected: 07/12/2018 Status: F Source: [facility] 2:20 AM HEALTH SYSTEM REPOSITORY TYPE CODE TESTS RESULT OUT OF REFERENCE UNITS RANGE LAB MAG(LOINC) 1.6-2.6 mg/dL Magnesium Blood 2.0 Performed By: #### MAG #### [place] [address] PHOSPHORUS BLOOD Collected: 07/12/2018 Status: F Source: [facility] 2:20 AM HEALTH SYSTEM REPOSITORY TYPE CODE TESTS RESULT OUT OF REFERENCE UNITS RANGE LAB PHOS(LOINC 2.5-4.9 mg/dL ) Phosphorus Blood 3.5 Performed By: #### PHOS #### [place] [address] PROGRESS Observed: 07/11/2018 Status: COMPLETED Source: [facility] 7:47 PM CLINIC OTHER CAMPUS REPOSITORY O ID: [id number] Author: Barbara Baldwin Service: Hospital Medicine Author [...] RECTAL q 4 H PRN phenol 1 [place] (CHLORASEPTIC) 1 [place] MUCOUS MEMBRANE (TOPICAL MOUTH AND THROAT) q [...] THERAPY NT Observed: 07/11/2018 Status: COMPLETED Source: [facility] 2:19 PM CLINIC OTHER CAMPUS REPOSITORY HNO ID: [id number] Author: Balbir (Pt) Young Service: Physical Therapy Author Type: Physical Therapist Type: Therapy (PT/OT/Speech/Resp) Filed: 07/11/2018 2:26 PM Note Text: Physical Therapy Evaluation SERVICE DATE: 07/11/2018 SERVICE TIME: 1335 to 1402 ROOM: [place] [address] ([facility]) Recommended Discharge Disposition: Home Recommended [...] mobility-other;Unsteadiness on feet Interventions Provided: Evaluation;Therapeutic Activity (37496) $ Evaluation-Low (76321) Billed Units: 1 unit Therapeutic Activity (55111) Treatment Minutes: 10 1 unit Skilled Intervention(s): [...] Vomiting Added automatically from request for surgery [id number] - Bowel obstruction (HCC) - SBO (small [...] Laterality Date - COLONOSCOP W/ OR W/O [facility] SPEC Colonoscopy x 4 - PAST SURGICAL HISTORY OF 2003 lower bowel surgery - PAST SURGICAL HISTORY OF dental surgery - REMOVAL OF TONSILS,<10 Y/O Tonsillectomy Patient Report: Identification verified x2, patient agreeable to therapy. Works in [employer], not a business, just something we do. Long time roommate recently, now former roommate's son lives with patient. Home Environment Patient Lives With: (friend) Assistance Available: signal timer Entry To Home: Stairs;With Rail Number Of [...] ANES POST Observed: 07/11/2018 Status: COMPLETED Source: [facility] 12:24 PM CLINIC OTHER CAMPUS REPOSITORY HNO ID: [id number] Author: Jose Juan Martinez MD Service: Anesthesiology [...] 3981 NUTRITION Observed: 07/11/2018 Status: COMPLETED Source: [facility] 12:03 PM CLINIC OTHER CAMPUS REPOSITORY HNO ID: [id number] Author: Maris Andres) JUAN MANUEL Patrick Service: [...] syndrome ?as evidenced by significant wt loss area captain, ongoing severe nausea/vomiting ? Intervention: Start [...] 0254 PREALB 13.6* Maris Patrick RD, LD, [facility] Pager: [phone] Increments: 3 NURSING PROG Observed: 07/11/2018 Status: COMPLETED Source: [facility] 11:16 AM [facility] REPOSITORY HNO ID: [id number] Author: Felicitas CortezRn) Kody RN Service: Nursing Author Type: Registered Nurse Type: Nursing Progress Note Filed: 07/11/2018 11:17 AM Note Text: Dr. Sanders by to see patient at bedside, patient states he is passing gas PT ED Observed: 07/11/2018 Status: COMPLETED Source: [facility] 11:06 AM [facility] REPOSITORY HNO ID: [id number] Author: Felicitas (Rn) Kody RN Service: Nursing [...] OP NOT Observed: 07/11/2018 Status: COMPLETED Source: [facility] 11:03 AM [facility] REPOSITORY HNO ID: [id number] Author: Geovanny Sanders Service: Gastroenterology Author Type: Physician Type: Brief Op Note Filed: 07/11/2018 11:06 AM Note Text: BRIEF OPERATIVE / PROCEDURE NOTE LOG ID: [id number] SURGERY/PROCEDURE DATE: 07/11/2018 INCISION/PROCEDURE START TIME: 10:33 AM INCISION CLOSE/PROCEDURE END TIME: 10:51 AM SURGEON(S)/PROCEDURALIST(S) AND ACADEMIC TUTOR(S): Surgeon(s) and Role: * Geovanny Sanders - [...] above SIGNATURE: Geovanny Sanders MD PATIENT NAME: Mrak Serrano DATE: July 11, 2018 TIME: 11:03 AM PAGER/CONTACT #: PT ED Observed: 07/11/2018 Status: COMPLETED Source: [facility] 9:09 AM [facility] REPOSITORY HNO ID: [id number] Author: Felicitas Ferris) Kody, RN Service: Nursing [...] GODINEZ PREOP Observed: 07/11/2018 Status: COMPLETED Source: [facility] 9:03 AM [facility] REPOSITORY HNO ID: [id number] Author: Jose Juan Martinez MD Service: Anesthesiology [...] Laterality Date - COLONOSCOP W/ OR W/O [facility] SPEC Colonoscopy x 4 - PAST SURGICAL [...] (radiology procedure) INTRAVENOUS DIRECTED PRN Mojgan Ring (Flatbed Truck Driver) Yuan [MAR Hold due to Transfer] acetaminophen 650 mg suppository (TYLENOL) 650 mg RECTAL q 4 H PRN Barbara Baldwin [DEC Hold due to Transfer] phenol 1 [place] (CHLORASEPTIC) 1 [place] MUCOUS MEMBRANE (TOPICAL MOUTH AND THROAT) q 2 H PRN Uday Valluri 1 [place] at 07/09/18 0851 [MAR Hold due to [...] SUBCUTANEOUS q 12 H Priti (Vianney) APRN. MarkSILK SPOOLER 5,000 Units at 07/10/181919 [MAR Hold due to Transfer] 0.9% NaCl 3-5 mL 3-5 mL INTRAVENOUS q 12 H Priti (Vianney) APRN. MarkSILK SPOOLER 3 mL at 07/07/18 0037 [MAR Hold due to Transfer] morphine 1-2 mg injection 1-2 mg INTRAVENOUS q 4 H PRN Priti (Operators Teacher) APRN. MarkSILK SPOOLER 1 mg at 07/07/18 0037 [MAR Hold due to Transfer] ipratropium-albuterol 3 mL nebulizer solution (DUONEB) 3 mL INHALATION q 4 H PRN Priti (Operators Teacher) APRN. MarkSILK SPOOLER 3 mL at 07/08/18 1556 [MAR Hold due to Transfer] pantoprazole 40 mg injection (PROTONIX) 40 mg INTRAVENOUS DAILY (6 AM) Gerson (Res) Box Elder 40 mg at 07/11/18 0511 [MAR Hold [...] SIGNATURE: Jose Juan Martinez MD PATIENT NAME: Mrak Serrano DATE: July 11, 2018 TIME: 9:03 AM CSN: [id number] CASE MANAGEM Observed: 07/11/2018 Status: COMPLETED Source: [facility] 8:44 AM CLINIC OTHER CAMPUS REPOSITORY HNO ID: [id number] Author: Lalita CortezRn) DEYVI Ritter Service: Care [...] 11, 2018 TIME: 8:44 AM PAGER/CONTACT #: [phone] PROGRESS Observed: 07/11/2018 Status: COMPLETED Source: [facility] 6:55 AM CLINIC OTHER [place] REPOSITORY HNO ID: [id number] Author: Maryanne Castillo Service: General Surgery Author [...] Date 07/10/18699 - 07/11/1865807/11/18699 - 07/12/1859 Shift 2294-6060 4279-5981 3721-2396 24 Hour Total 3880-2910 4314-1086 1951-2524 24 Hour Total I N T A K E Shift Total O U T P U T Urine 9935 486 1746 Void (ml) 3338 066 3490 Tubes 700 700 Output (GI Feed/Drain 07/06/18 2230 Admission to Hospital Nasogastric Right Naris) 700 700 # of BMs Number of BMs 1 x 1 x Shift Total 2165 632 3881 Weight (kg) 44 44 43.2 43.2 43.2 [...] [MAR Hold due to Transfer] phenol 1 [place] (CHLORASEPTIC) 1 [place] MUCOUS MEMBRANE (TOPICAL MOUTH AND THROAT) q [...] Note: Added automatically from request for surgery [id number] - Bowel obstruction (HCC) 07/07/2018 - SBO (small bowel obstruction) ([facility]) 07/07/2018 - Nicotine use disorder, F17.2 07/07/2018 - Hypertension - COPD (chronic obstructive pulmonary disease) ([facility]) 68 year old male with SBO, significant [...] BASIC PANEL Collected: 07/11/2018 Status: F Source: [facility] 2:54 AM HEALTH SYSTEM REPOSITORY TYPE CODE [...] Gap 11 Performed By: #### P8 #### [place] [address] MAGNESIUM BLOOD Collected: 07/11/2018 Status: F Source: [facility] 2:54 AM HEALTH SYSTEM REPOSITORY TYPE CODE TESTS RESULT OUT OF REFERENCE UNITS RANGE LAB MAG(LOINC) 1.6-2.6 mg/dL Magnesium Blood 2.2 Performed By: #### MAG #### [place] [address] PHOSPHORUS BLOOD Collected: 07/11/2018 Status: F Source: [facility] 2:54 AM HEALTH SYSTEM REPOSITORY TYPE CODE TESTS RESULT OUT OF REFERENCE UNITS RANGE LAB PHOS(LOINC 2.5-4.9 mg/dL ) Phosphorus Blood 3.6 Performed By: #### PHOS #### [place] [address] PREALBUMIN Collected: 07/11/2018 Status: F Source: [facility] 2:54 AM HEALTH SYSTEM REPOSITORY TYPE CODE TESTS RESULT OUT OF REFERENCE UNITS RANGE LAB PAB(LOINC) 20.0-40.0 mg/dL Low Prealbumin 13.6 Performed By: #### PAB #### [place] [address] OPERATIVE NO Observed: 07/11/2018 Status: COMPLETED Source: [facility] 12:00 AM CLINIC OTHER CAMPUS REPOSITORY HNO ID: [id number] Author: Geovanny Sanders Service: Gastroenterology Author Type: Physician Type: Operative Report Filed: 07/11/2018 6:23 PM Note Text: [facility] - Operative Report MARK SERRANO : 1950 AGE: 68. SEX: M PATIENT TYPE: I HOSP SVC: INT LOCATION: [facility] ATTENDING PHYSICIAN: BARBARA BALDWIN [facility] NUMBER: [id number] DATE OF SURGERY/PROCEDURE: 07/11/2018 INCISION/PROCEDURE START TIME: 10:33. INCISION CLOSE/PROCEDURE END TIME: 10:51. PREOPERATIVE DIAGNOSIS: See below POSTOPERATIVE DIAGNOSIS: SURGEON: Geovanny Sanders MD ACADEMIC TUTOR: Mino Petersen. SURGERY/PROCEDURE: Esophagogastroduodenoscopy with biopsies. ANESTHESIA: Monitored Anesthesia Care LOG ID: [id number]. PREOPERATIVE DIAGNOSES: 1. Nausea and vomiting. 2. [...] patient has recurrent symptoms. Geovanny Sanders MD [id number] /[id number] OPERATIVE NO Observed: 07/11/2018 Status: COMPLETED Source: [facility] 12:00 AM [facility] OTHER CAMPUS REPOSITORY HNO ID: [id number] Author: Geovanny Sanders Service: Gastroenterology Author Type: Physician Type: Operative Report Filed: 07/20/2018 8:51 AM Note Text: [facility] - Operative Report MARK SERRANO : 1950 AGE: 68. SEX: M PATIENT TYPE: I HOSP SVC: INT LOCATION: [facility] ATTENDING PHYSICIAN: BARBARA BALDWIN CSN NUMBER: [id number] DATE OF SURGERY/PROCEDURE: 07/11/2018 INCISION/PROCEDURE START TIME: 10:33. INCISION CLOSE/PROCEDURE END TIME: 10:51. PREOPERATIVE DIAGNOSIS: See below POSTOPERATIVE DIAGNOSIS: See below SURGEON: Geovanny Sanders MD ACADEMIC TUTOR: Mino Petersen. SURGERY/PROCEDURE: Esophagogastroduodenoscopy with biopsies. ANESTHESIA: Monitored Anesthesia Care LOG ID: [id number]. PREOPERATIVE DIAGNOSES: 1. Nausea and vomiting. 2. [...] patient has recurrent symptoms. Geovanny Sanders MD [id number] /[id number] SURGICAL TISSUE EXAM Observed: 07/11/2018 Status: F Source: [facility] 12:00 AM HEALTH SYSTEM REPOSITORY Test performed at [address] [address] NAME: MARK SERRANO REQUESTING: GEOVANNY SANDERS M.D. [...] of 1 Performed By: #### SURG #### [facility] [address] [place] [address] PROGRESS Observed: 07/10/2018 Status: COMPLETED Source: [facility] 6:04 PM CLINIC OTHER CAMPUS REPOSITORY HNO ID: [id number] Author: Barbara Baldwin Service: Hospital Medicine Author Type: Physician Type: Progress Notes Filed: 07/10/2018 10:31 PM Note Text: INTERNAL MEDICINE PROGRESS NOTE SERVICE DATE: 07/10/2018 SERVICE TIME: 6:05 PM ADMITTING PHYSICIAN: Dalia Santos Subjective CHIEF COMPLAINT: f/u medical issues listed below Current Facility-Administered Medications: Parenteral Nutrition - Adult INTRAVENOUS ONCE TPN (1800 START) iv contrast (radiology procedure) INTRAVENOUS DIRECTED PRN phenol 1 [place] (CHLORASEPTIC) 1 [place] MUCOUS MEMBRANE (TOPICAL MOUTH AND THROAT) q [...] UPPER GI W SMALL BOWEL SERIES (Order #[id number]) on 07/07/2018 Assessment/Plan 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 PROGRESS Observed: 07/10/2018 Status: COMPLETED Source: [facility] 6:20 AM CLINIC OTHER CAMPUS REPOSITORY HNO ID: [id number] Author: Mojgan Ring (Flatbed Truck Driver) Yuan Service: General Surgery Author Type: Nurse [...] 07/09/18699 - 07/10/1865807/10/18699 - 07/11/18 0659 Shift 6890-7576 6519-8613 2549-5743 24 Hour Total 6384-6786 5525-7492 2755-7820 24 Hour Total I N T A K E TPN/PPN 800 800 TPN 800 800 Shift Total 800 800 O U T P U T Urine 650 1 651 Void (ml) 650 650 Urine Not Saved 1 1 Tubes 156 425 9648 Output (GI Feed/Drain 07/06/182229 Admission to Hospital Nasogastric Right Naris) 528 726 4703 Shift Total 650 545 054 3703 Weight (kg) 43.5 44 44 44 44 44 44 44 MEDICATIONS Current Facility-Administered Medications: phenol 1 [place] (CHLORASEPTIC) 1 [place] MUCOUS MEMBRANE (TOPICAL MOUTH AND THROAT) q [...] Diagnosis Date Noted - Bowel obstruction ([facility]) 07/07/2018 - SBO (small bowel obstruction) ([facility]) 07/07/2018 - Nicotine use disorder, F17.2 07/07/2018 - Hypertension - COPD (chronic obstructive pulmonary disease) ([facility]) 68 year old male with SBO, significant [...] - CT chest ? SIGNATURE: Mojgan Bolden APRN.PHP DEVELOPER PATIENT NAME: Mark Serrano DATE: July 10, 2018 TIME: 6:20 AM CONTACT: [id number] Emergency General Surgery Service Pager: For questions or concerns Mon-Wed 6a-5p please page [phone]. After 5pm and on Weekends and Holidays, please page [phone]. BASIC PANEL Collected: 07/10/2018 Status: F Source: [facility] 2:47 AM HEALTH SYSTEM REPOSITORY TYPE CODE [...] Gap 11 Performed By: #### P8 #### [place] [address] MAGNESIUM BLOOD Collected: 07/10/2018 Status: F Source: [facility] 2:47 AM HEALTH SYSTEM REPOSITORY TYPE CODE TESTS RESULT OUT OF REFERENCE UNITS RANGE LAB MAG(LOINC) 1.6-2.6 mg/dL Magnesium Blood 2.0 Performed By: #### MAG #### [place] [address] PHOSPHORUS BLOOD Collected: 07/10/2018 Status: F Source: [facility] 2:47 AM HEALTH SYSTEM REPOSITORY TYPE CODE TESTS RESULT OUT OF REFERENCE UNITS RANGE LAB PHOS(LOINC 2.5-4.9 mg/dL ) Phosphorus Blood 3.2 Performed By: #### PHOS #### [place] [address] PROGRESS Observed: 07/09/2018 Status: COMPLETED Source: [facility] 3:06 PM CLINIC OTHER CAMPUS REPOSITORY O ID: [id number] Author: Christoph Robert Service: Gastroenterology Author Type: Physician Type: Progress Notes Filed: 07/09/2018 3:11 PM Note Text: CONSULT: GASTROENTEROLOGY SERVICE SERVICE DATE: 07/31/2017 SERVICE TIME: 3:06 PM SUBJECTIVE Chief complaint: 1. Persistent high NG output 2. 3. SNOQUALMIE: Nausea is better; does not like NG tube Current Facility-Administered Medications: phenol 1 [place] (CHLORASEPTIC) 1 [place] MUCOUS MEMBRANE (TOPICAL MOUTH AND THROAT) q 2 H PRN Uday Valluri 1 [place] at 07/09/18 0851 Parenteral Nutrition - Adult [...] SUBCUTANEOUS q 12 H Priti (Vianney) APRN. MarkSILK SPOOLER 5,000 Units at 07/09/18 0858 0.9% NaCl 3-5 mL 3-5 mL INTRAVENOUS q 12 H Priti (Vianney) APRN. MarkSILK SPOOLER 3 mL at 07/07/18 0037 morphine 1-2 mg injection 1-2 mg INTRAVENOUS q 4 H PRN Priti (Vianney) APRN. MarkSILK SPOOLER 1 mg at 07/07/18 0037 ipratropium-albuterol 3 mL nebulizer solution (DUONEB) 3 mL INHALATION q 4 H PRN Priti (Vianney) APRN. MarkSILK SPOOLER 3 mL at 07/08/18 1556 pantoprazole 40 mg injection (PROTONIX) 40 mg INTRAVENOUS DAILY (6 AM) Gerson Izaguirre Box [place] 40 mg at 07/09/18 0503 0.9% NaCl [...] Serrano DATE: 07/09/18 TIME: 3:06 PM MOBILE: [phone] PROGRESS Observed: 07/09/2018 Status: COMPLETED Source: [facility] 9:45 AM CLINIC OTHER CAMPUS REPOSITORY HNO ID: [id number] Author: Uday Jo Service: Hospital Medicine Author [...] PAGER: PROGRESS Observed: 07/09/2018 Status: COMPLETED Source: [facility] 6:24 AM CLINIC OTHER CAMPUS REPOSITORY HNO ID: [id number] Author: Mojgan Ring (Flatbed Truck Driver) Yuan Service: General Surgery Author Type: Nurse [...] 07/08/18699 - 07/09/1865807/09/18699 - 07/10/18 0659 Shift 0198-9387 8528-5252 1087-7954 24 Hour Total 5414-4234 4652-7610 8582-0032 24 Hour Total I N T A K E TPN/PPN 800 800 TPN 800 800 Shift Total 800 800 O U T P U T Urine 175 100 275 Void (ml) 175 100 275 Tubes 297 887 6573 Output (GI Feed/Drain 07/06/18 2230 Admission to Hospital Nasogastric Right Naris) 961 290 7867 Shift Total 425 368 019 8801 Weight (kg) 42.8 43.5 43.5 43.5 43.5 [...] - COPD (chronic obstructive pulmonary disease) ([facility]) 68 year old male with SBO, significant weight loss/malnutrition, concern for SMA syndrome ? - Medical management per primary - Cont NG LIWS - Continue TPN - No acute surgical intervention at this point - Consult GI for EGD to rule out neoplasm, [place] Feeding tube may be needed ? 0810 Assessment and plan discussed with attending: Dr. Guerrero. ? SIGNATURE: Mojgan Bolden APRN.PHP DEVELOPER PATIENT NAME: Mark Serrano DATE: July 09, 2018 TIME: 6:24 AM CONTACT: [id number] Emergency General Surgery Service Pager: For questions or concerns Mon-Fri 6a-5p please page [phone]. After 5pm and on Weekends and Holidays, please page [phone]. BASIC PANEL Collected: 07/09/2018 Status: F Source: [facility] 3:36 AM HEALTH SYSTEM REPOSITORY TYPE CODE [...] Gap 9 Performed By: #### P8 #### [facility] [address] [place], [place] [address] MAGNESIUM BLOOD Collected: 07/09/2018 Status: F Source: [facility] 3:36 AM HEALTH SYSTEM REPOSITORY TYPE CODE TESTS RESULT OUT OF REFERENCE UNITS RANGE LAB MAG(LOINC) 1.6-2.6 mg/dL Magnesium Blood 1.8 Performed By: #### MAG #### [facility] [address] [place], [place] [address] PHOSPHORUS BLOOD Collected: 07/09/2018 Status: F Source: [facility] 3:36 AM HEALTH SYSTEM REPOSITORY TYPE CODE TESTS RESULT OUT OF REFERENCE UNITS RANGE LAB PHOS(LOINC 2.5-4.9 mg/dL ) Phosphorus Blood 3.5 Performed By: #### PHOS #### [facility] [address] [place] [address] ABDOMEN 1 VIEW Observed: 07/08/2018 Status: F Source: [facility] 4:40 PM HEALTH SYSTEM REPOSITORY Performed at [facility] APPROVED BY: KAMRAN ALSTON MD ABDOMEN , [...] NURSING PROG Observed: 07/08/2018 Status: COMPLETED Source: [facility] 3:58 PM CLINIC OTHER CAMPUS REPOSITORY HNO ID: [id number] Author: Vera CortezRn) DEYVI Dhillon Service: Nursing [...] PM CLINIC OTHER CAMPUS REPOSITORY HNO ID: [id number] Author: Lalita (Rn) DEYVI Ritter Service: Care Management Author Type: Registered Nurse Type: Care Mgt Initial Assessment Filed: 07/08/2018 3:47 PM Note Text: CARE MANAGEMENT: ASSESSMENT AND DISCHARGE PLAN SERVICE DATE: 07/08/2018 SERVICE TIME: 3:43 PM PRIMARY CARE PHYSICIAN: Jacqui Cadet MD ADMISSION STATUS: Inpatient Needs Prior to Discharge: To Be Determined;Home Care Order;OT/PT Evaluation 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 No Advance Directive: Current Advance Directive: Health Care Power of Tint Layer;Living Will In Chart: No Chlorinator Attempted to Assist with AD Completion: No [...] Treatments Has the Patient Been in a Residential Facility in the Past 30 days? No [...] and plan for meeting these needs: ind area captain no needs at this time Does [...] 0 I feel financially burdened by my pvw-pn-sonpri expenses for my prescription medication: Agree somewhat [...] at this time POTENTIAL TRANSITION PLANS Home [facility] OT/plunger scoop operatorResidential Facility/Intermediate Care Facility To Be Determined Patient from home with roommate. IND ASSOCIATE DOCTOR. No needs at this time. Currently on TPN and LIWS with corpak placed. No weekend DC planned. Will follow for any transitional needs SIGNATURE: Lalita Ritter RN PATIENT NAME: Mark Serrano DATE: July 08, 2018 TIME: 3:43 PM PAGER/CONTACT #: [phone] HGB A1C Collected: 07/08/2018 Status: F Source: [facility] 2:15 PM HEALTH SYSTEM REPOSITORY TYPE CODE TESTS RESULT OUT OF RANGE REFERENCE UNITS LAB A1C5(LOINC) 4.2-6.3 % Hgb A1c 5.9 Result Comment: Method is National Glycohemoglobin Standardization Program (NGSP) compliant. LAB ESAVG(LOINC) mg/dl Est. Avg Glucose 123 Performed By: #### HA1C #### [facility] [address] [place] [address] PROGRESS Observed: 07/08/2018 Status: COMPLETED Source: [facility] 12:14 PM CLINIC OTHER CAMPUS REPOSITORY HNO ID: [id number] Author: Uday Jo Service: Hospital Medicine Author [...] PAGER: NUTRITION Observed: 07/08/2018 Status: COMPLETED Source: [facility] 12:10 PM CLINIC OTHER CAMPUS REPOSITORY HNO ID: [id number] Author: Maris Patrick RD Service: NST-Nutrition Support [...] SUPPORT TEAM PROGRESS NOTE PATIENT NAME: Mark Srerano DATE OF : 1950 DATE: 07/08/2018 Nutritional [...] syndrome as evidenced by significant wt loss area captain, ongoing severe nausea/vomiting ? Intervention: Start [...] 0530 CRP 0.31* Maris Patrick RD, LD, [facility] Pager: [phone] Increments: 3 PROGRESS Observed: 07/08/2018 Status: COMPLETED Source: [facility] 6:34 AM CLINIC OTHER CAMPUS REPOSITORY HNO ID: [id number] Author: Lisa ([facility]) Yuan Service: General Surgery Author Type: [...] 07/07/18699 - 07/08/1865807/08/18699 - 07/09/18 06 Shift 4094-0071 3962-0550 9875-6492 24 Hour Total 1291-5274 9427-4769 9430-6519 24 Hour Total I N T A [...] - COPD (chronic obstructive pulmonary disease) (FORMERLY [facility]) 68 year old male with SBO, significant [...] July 08, 2018 TIME: 6:35 AM CONTACT: [id number] Emergency General Surgery Service Pager: For questions or concerns Mon-Fri 6a-5p please page [phone]. After 5pm and on Weekends and Holidays, please page [phone]. HEMOGRAM/DIFF Collected: 07/08/2018 Status: F Source: [facility] 5:30 AM HEALTH SYSTEM REPOSITORY TYPE CODE [...] 0.57 LAB MONON(LOIN 0.30-0.82 thou/cmm C) Abs. Frio 0.33 LAB EOSN(LOINC 0.04-0.54 thou/cmm ) Abs. Eosin 0.06 LAB BASON(LOIN 0.01-0.08 thou/cmm C) Abs. Baso 0.02 Performed By: #### CBCD1 #### [place] [address] BASIC PANEL Collected: 07/08/2018 Status: F Source: [facility] 5:30 AM HEALTH SYSTEM REPOSITORY TYPE CODE [...] Blood 375 Performed By: #### P8 #### [place] [address] MAGNESIUM BLOOD Collected: 07/08/2018 Status: F Source: [facility] 5:30 AM HEALTH SYSTEM REPOSITORY TYPE CODE TESTS RESULT OUT OF REFERENCE UNITS RANGE LAB MAG(LOINC) 1.6-2.6 mg/dL Magnesium Blood 2.4 Performed By: #### MAG #### [place] [address] PHOSPHORUS BLOOD Collected: 07/08/2018 Status: F Source: [facility] 5:30 AM HEALTH SYSTEM REPOSITORY TYPE CODE TESTS RESULT OUT OF REFERENCE UNITS RANGE LAB PHOS(LOINC 2.5-4.9 mg/dL ) Phosphorus Blood 4.6 Performed By: #### PHOS #### [facility] [address] [place], [place] [address] TRIGLYCERIDE BLOOD Collected: 07/08/2018 Status: F Source: [facility] 5:30 AM HEALTH SYSTEM REPOSITORY TYPE CODE TESTS RESULT OUT OF REFERENCE UNITS RANGE LAB TRIG(LOINC 0-149 mg/dL ) Triglyceride High Blood 327 Result Comment: < 200 Desirable Result invalid if not a fasting specimen. Performed By: #### TRIG #### [facility] [address] [place] [address] CRP Collected: 07/08/2018 Status: F Source: [facility] 5:30 AM HEALTH SYSTEM REPOSITORY TYPE CODE TESTS RESULT OUT OF RANGE REFERENCE UNITS LAB CRP3(LOINC) 0.00-0.30 mg/dL High CRP 0.31 Performed By: #### CRP3 #### [facility] [address] [place], [place] [address] CONSULT Observed: 07/07/2018 Status: COMPLETED Source: [facility] 2:51 PM CLINIC OTHER CAMPUS REPOSITORY HNO ID: [id number] Author: Kay Cummings Service: Gastroenterology Author Type: [...] Laterality Date - COLONOSCOP W/ OR W/O [facility] SPEC Colonoscopy x 4 - PAST SURGICAL [...] possibility of ?SMA syndrome CT abd/pelvis at [facility]: Distended stomach and proximal duodenum with [...] 1236 PROCEDURE Observed: 07/07/2018 Status: COMPLETED Source: [facility] 2:11 PM CLINIC OTHER CAMPUS REPOSITORY HNO ID: [id number] Author: Christina (Rn) Geoffrey Gordillo RN Service: PICC Team Author Type: Registered Nurse Type: Procedures Filed: 07/07/2018 2:16 PM Note Text: PICC NURSE INSERTION NOTE DATE OF PROCEDURE: July 07, 2018 TIME OF PROCEDURE: 1325 ORDERING PHYSICIAN: arron INFORMED CONSENT: Obtained per hospital policy. INDICATION FOR LINE PLACEMENT: PH/Osmolality Poor veins/circulatory system CONDITION OF LINE PLACEMENT: Sterile PRIMARY PROCEDURALIST: Christina Gordillo RN ACADEMIC TUTOR: Dena Phillip RN PRE-PROCEDURE REVIEW ALLERGIES Allergen [...] Gordillo RN CATHETER PLACEMENT Brand: bard Lot: [id number] Number of Lumens: 2 Type of PICC: Power Injectable PICC Lumen Size: 5 Burmese PLACEMENT TECHNIQUE Lidocaine: Yes. Strength: 1% Volume [...] Education Materials: Placed in chart [facility] Insertion Checklist QUESTIONS or PROBLEMS: Call [phone] SIGNATURE: Christina Gordillo RN PATIENT NAME: Mark Serrano DATE: July 07, 2018 TIME: 2:11 PM PAGER/CONTACT PHONE: PROGRESS Observed: 07/07/2018 Status: COMPLETED Source: [facility] 1:44 PM CLINIC OTHER CAMPUS REPOSITORY HNO ID: [id number] Author: Uday Jo Service: Hospital Medicine Author [...] PT ED Observed: 07/07/2018 Status: COMPLETED Source: [facility] 1:39 PM CLINIC OTHER CAMPUS REPOSITORY HNO ID: [id number] Author: Dena (Rn) DEYVI Phillip Service: PICC Team Author Type: Registered Nurse Type: Patient Education Filed: 07/07/2018 1:41 PM Note Text: PATIENT EDUCATION TOPIC: PROCEDURE / SURGERY: Procedure/Surgery: PICC Insertion PATIENT NAME: Mark Serrano PATIENT LOCATION: [place] [address]/[place] [address]* READINESS TO LEARN COGNITIVE ABILITY: Alert and [...] Line Book SUPPLEMENTAL MATERIAL PROVIDED TO PATIENT: [facility] PICC information brochure and Catheter Associated Bloodstream Infections Fact sheet REFERRAL (RECOMMENDATION): None Electronically Signed By: Dena Phillip RN UGI W/SBS INCL Observed: 07/07/2018 Status: F Source: [facility] ESOPHAGUS 1:16 PM HEALTH SYSTEM REPOSITORY Performed at [facility] APPROVED BY: Choco Méndez MD EXAM TITLE: UGI W/SBS INCL ESOPHAGUS DATE: 07/07/2018 08:56 COMPARISON: Outside CT study performed 07/06/2018 CLINICAL INDICATION/HISTORY: Abdominal pain, nausea, diarrhea, history of Crohn's disease and prior bowel resections TECHNIQUE: Upper GI and small bowel follow-through. 18 images were obtained. 1.7 minutes of fluoroscopy time utilized. FINDINGS: Initial supervisor bonding film demonstrates a nonspecific bowel gas pattern. [...] syndrome. NUTRITION Observed: 07/07/2018 Status: COMPLETED Source: [facility] 11:20 AM [facility] REPOSITORY [facility] ID: [id number] Author: Maris Patrick RD Service: NST-Nutrition Support [...] syndrome as evidenced by significant wt loss area captain, ongoing severe nausea/vomiting Intervention: Start NST [...] Laterality Date - COLONOSCOP W/ OR W/O [facility] SPEC Colonoscopy x 4 - PAST SURGICAL [...] Resting Metabolic Rate: 1139 Estimated kilocalorie needs: 1223-1157 kilocalories determined by 25-30 kcal/kg Estimated protein [...] 0659 07/07/18 07 - 07/08/18 0659 Shift 9879-8066 8401-9919 2275-9645 24 Hour Total 9065-9015 3460-3644 2517-5547 24 Hour Total I N T A [...] July 07, 2018 TIME: 11:20 AM PAGER: [phone] HISTORY PHYSICAL Observed: 07/07/2018 Status: COMPLETED Source: [facility] 11:10 AM CLINIC OTHER CAMPUS REPOSITORY HNO ID: [id number] Author: Jacque Ferris) DEYVI Meek Service: PICC Team Author Type: Registered Nurse Type: HANDP Filed: 07/07/2018 11:11 AM Note Text: PICC/VASCULAR ACCESS PROGRESS NOTE SERVICE DATE: 07/07/2018 SERVICE TIME: [address] Gomez concerning GFR=32. OK to [address] PICC. SIGNATURE: Jacque Meek RN PATIENT NAME: Mark Serrano DATE: July 07, 2018 TIME: 11:10 AM PAGER/CONTACT #: [phone] CONSULT PROG Observed: 07/07/2018 Status: COMPLETED Source: [facility] 7:00 AM CLINIC OTHER CAMPUS REPOSITORY HNO ID: [id number] Author: Maryanne Castillo Service: General Surgery Author [...] Date 07/06/18699 - 07/07/1865807/07/18699 - 07/08/1859 Shift 2910-2580 7556-4201 1503-2936 24 Hour Total 3427-1184 0735-9872 6086-3010 24 Hour Total I N T A [...] - COPD (chronic obstructive pulmonary disease) ([facility]LY [facility]) 68 year old male with SBO, significant [...] please page [phone] if in ICU or [phone] if on RNF. HEMOGRAM Collected: 07/07/2018 Status: F Source: [facility] 4:10 AM HEALTH SYSTEM REPOSITORY TYPE CODE [...] MPV 10.7 Performed By: #### CBC1 #### [facility] [address] [place], [place] [address] BASIC PANEL Collected: 07/07/2018 Status: F Source: [facility] 4:10 AM HEALTH SYSTEM REPOSITORY TYPE CODE [...] Gap 12 Performed By: #### P8 #### [place] [address] MAGNESIUM BLOOD Collected: 07/07/2018 Status: F Source: [facility] 4:10 AM HEALTH SYSTEM REPOSITORY TYPE CODE TESTS RESULT OUT OF REFERENCE UNITS RANGE LAB MAG(LOINC) 1.6-2.6 mg/dL Magnesium Blood 1.7 Performed By: #### MAG #### [place] [address] PHOSPHORUS BLOOD Collected: 07/07/2018 Status: F Source: [facility] 4:10 AM HEALTH SYSTEM REPOSITORY TYPE CODE TESTS RESULT OUT OF REFERENCE UNITS RANGE LAB PHOS(LOINC 2.5-4.9 mg/dL ) Phosphorus Blood 4.4 Performed By: #### PHOS #### [place] [address] NURSING PROG Observed: 07/07/2018 Status: COMPLETED Source: [facility] 2:37 AM CLINIC OTHER CAMPUS REPOSITORY O ID: [id number] Author: Marva (Rn) Jose Juan RN Service: (none) Author Type: Registered Nurse Type: Nursing Progress Note Filed: 07/07/2018 2:39 AM Note Text: Nursing Progress Note Patient Name: Mark Serrano Patient Location: [id number]/[id number]* Daily Note: SILK SPOOLER Priti ordered to advance NG tube approx 1in. Pt tolerated well. Priti also notified of pts NG output of 700. Will continue to monitor This note was completed by: Marva Manzano RN CHEST 1 VIEW Observed: 07/07/2018 Status: F Source: [facility] 1:37 AM HEALTH SYSTEM REPOSITORY Performed at [facility] APPROVED BY: LETI STANTON MD EXAM: CHEST 1 VIEW HISTORY: Shortness of breath COMPARISON: None available FINDINGS: See impression IMPRESSION: Enteric tube sidehole projects at the GE junction. Advancement is recommended. No confluent airspace disease. Unable to exclude pleural effusion or pneumothorax on this limited supine technique (unlabeled). Cardiomediastinal contours are within normal limits. Bones are unremarkable. CONSULT Observed: 07/07/2018 Status: COMPLETED Source: [facility] 12:49 AM CLINIC OTHER CAMPUS REPOSITORY HNO ID: [id number] Author: Sg Guerrero Service: General Surgery Author [...] Laterality Date - COLONOSCOP W/ OR W/O [facility] SPEC Colonoscopy x 4 - PAST SURGICAL [...] H PRN ipratropium-albuterol 3 mL nebulizer solution (HydrobeeB) 3 mL INHALATION q 4 H PRN [...] questions or concerns Mon-Fri 6a-5p please page [phone]. After 5pm and on Weekends and Holidays, please page [phone] if in ICU or [phone] if on RNF. Discussed with Dr. Yaneli [...] will try to obtain these from his [facility]. Sg Guerrero MD 1:09 PM 07/05/18 EKG (AK,AV,EU,FV,HL,GILES,MM,SP) Observed: Status: F Source: [facility] 07/07/2018 12:29 [facility] OTHER [facility] REPOSITORY NAME : MARK SERRANO PID : [id number] : 1950 Gender : Male Race : ORD : [id number] Procedure Date : Jul 07 2018 00:29 [...] ms QTC Calculation(Bezet) : 429 ms P [place] : 86 degrees R [place] : -72 degrees T [place] : 75 degrees Test Reason : Check QT Location : 71 : 7100 7106 Overread By : MD Paniagua Vinay Editted By : MD Paniagua Vinay Referred By : PRITI MEAD Acquired by : Leonor Glover HISTORY PHYSICAL Observed: 07/07/2018 Status: COMPLETED Source: [facility] 12:02 AM [facility] REPOSITORY HNO ID: [id number] Author: Priti (Vianney) GOKUL Mead.VIANNEY Service: Hospital Medicine Author Type: Nurse Practitioner Type: HANDP Filed: 07/07/2018 12:48 AM Note Text: Attestation signed by Aj Pro at 07/07/2018 12:56 AM Seen and examined by me. Agree with PULL WORKER. The patient will SBO likely needs to [...] After 7pm, please call cross cover pager #[phone] Subjective CHIEF COMPLAINT: Abdominal Pain HPI: This [...] Laterality Date - COLONOSCOP W/ OR W/O [facility] SPEC Colonoscopy x 4 - PAST SURGICAL [...] EMERGENCY DEPARTMENT Observed: 07/06/2018 Status: F Source: [facility] SUMMARY 11:44 PM [facility] REPOSITORY [facility] Medical Records Department [address] [place] [address] Emergency Department Summary 07/06/18 1642 MR#: [id number] Acct: [id number] Name: MARK SERRANO Rep #: [id number] : 1950 68 From: Channing Manuel PCP: [...] Crohn's disease also. Surgery was done in [place]. Does not follow general surgeon. No other [...] tertiary center secondary to this. Spoke with [facility] excepted to surface Dr. Santos. Patient creatinine is chronic, however this is slightly more elevated than previous range from 1.7-2.0. He is given IV fluids. Treatment Plan: [] Disposition: Transfer [facility] Impression: 1. Abdominal pain 2. Small bowel obstruction 3. Possible SMA syndrome 4. Chronic kidney disease This note was generated with Mobiveryation software. It may contain incorrect words, spelling, and punctuation that were not noted in review of the chart prior to signing ED Disposition - Plan for ED Patient: Disposition: [facility] Chief Complaint: Abd Pain Diagnosis: CKD (chronic kidney disease) stage 4, GFR 15-29 ml/min, Small bowel obstruction, Possible SMA syndrome Referrals: Jalen Rodríguez Chi, MD [Primary Care Provider] - What to do if you have Problems For any increased pain, shortness of breath, bleeding, nausea or vomiting, chest pain, or any unexpected problems, contact your Primary Care Provider. Call [facility] ([phone]) or report to the closest Emergency Room. Call 911 if necessary. 07/06/18 2344 <Electronically signed by Channing Manuel> Date Channing Manuel Cosigner Signature (If Indicated): Date CC: Jalen Rodríguez MD ABDOMEN SINGLE VIEW Observed: 07/06/2018 Status: F Source: [facility] (PORTABLE) 6:43 PM [facility] REPOSITORY [facility] Imaging Services [address] [place] [address] Abdomen Single View (Portable) MR#: [id number] Acct: [id number] Name: MARK SERRANO Rep #: [id number] : 1950 M 68 From: Shanna Aguillon MD PCP: Jalen Rodríguez MD, Chi Status: REG ER Study: Abdomen Single View (Portable) Date of Exam: 07/06/18 Exam# [id number] Ordering Dr: Channing Ruiz DO STUDY: X-RAY [...] , CC: Jalen Rodríguez MD; Channing Ruiz Pizza Delivery: Signed LACTIC ACID Collected: 07/06/2018 Status: F Source: [facility] 6:35 PM [facility] REPOSITORY TYPE CODE TESTS RESULT OUT OF RANGE REFERENCE UNITS LAB L503.6005 0.4-2.0 mmol/L Normal LACTIC ACID 1.0 Performed By: #### L503.6005 #### [facility] [address] [place], [address] ABDOMEN/PELVIS WITHOUT Observed: 07/06/2018 Status: F Source: [facility] CONT 4:42 PM [facility] REPOSITORY [facility] Imaging Services [address] [place] [address] Abdomen/Pelvis without Cont MR#: [id number] Acct: [id number] Name: MARK SERRANO Rep #: [id number] : 1950 M 68 From: Shanna Aguillon MD PCP: Jalen Rodríguez MD, Chi Status: REG ER Study: Abdomen/Pelvis without Cont Date of Exam: 07/06/18 Exam# [id number] Ordering Dr: Channing Ruiz DO STUDY: CT [...] , CC: Jalen Rodríguez MD; Channing Ruiz Pizza Delivery: Signed CBC W/DIFF, AUTOMATED Collected: 07/06/2018 Status: F Source: [facility] 4:37 PM [facility] REPOSITORY TYPE CODE TESTS RESULT OUT OF [...] Performed By: #### L100.0100 #### [facility] [address] [place], [address] COMPREHENSIVE METABOLIC Collected: 07/06/2018 Status: F Source: [facility] 4:37 PM [facility] REPOSITORY TYPE CODE TESTS RESULT OUT OF [...] By: #### L500.4050, L501.2450 #### [facility] [address] [place], [address] LIPASE Collected: 07/06/2018 Status: F Source: [facility] 4:37 PM [facility] REPOSITORY TYPE CODE TESTS RESULT OUT OF RANGE REFERENCE UNITS LAB L501.2450 73-393 U/L Normal LIPASE 390 Performed By: #### L500.4050, L501.2450 #### [facility] [address] [place], [address] HOSP Observed: 07/06/2018 Status: COMPLETED Source: [facility] 12:00 AM CLINIC OTHER CAMPUS REPOSITORY Patient:Mark Serrano MRN: <[id number]> Height:5' 5(1.651 m) Weight:95 lb 3.8 oz [...] acetaminophen 650 mg suppository (TYLENOL) phenol 1 [place] (CHLORASEPTIC) fluticasone-vilanterol 100-25 mcg/dose 1 Inhalation (BREO [...] [I10] COPD (chronic obstructive pulmonary disease) ([facility]) [J44.9] Bowel obstruction ([facility]) [K56.609] SBO (small bowel obstruction) ([facility]) [K56.609] Nicotine use disorder, F17.2 [F17.200] Vomiting [R11.10] Allergies: Penicillin Date Verified: 07/11/18 Lab Values Lab Value Units Date High Low POTA* 3.9 mEq/L 07/11/2018 5.1 3.5 VALENTÍN* 31.8 % 07/08/2018 51.0 40.1 Progress Notes (): Priti Mead, VIANNEY, SALES REPRESENTATIVE [employer].VIANNEY 07/07/2018 12:48 AM Attested Attestation signed by Aj Pro at 07/07/2018 12:56 AM Seen and examined by me. Agree with PULL WORKER. The patient will SBO likely needs to [...] After 7pm, please call cross cover pager #[phone] Subjective CHIEF COMPLAINT: Abdominal Pain HPI: This [...] Laterality Date - COLONOSCOP W/ OR W/O [facility] SPEC Colonoscopy x 4 - PAST SURGICAL [...] Laterality Date - COLONOSCOP W/ OR W/O [facility] SPEC Colonoscopy x 4 - PAST SURGICAL [...] questions or concerns Mon-Fri 6a-5p please page [phone]. After 5pm and on Weekends and Holidays, [...] will try to obtain these from his [facility]. Sg Guerrero MD 1:09 PM 07/05/18 Previous Version Marva Manzano RN, RN 07/07/2018 2:39 AM Signed Nursing Progress Note Patient Name: Mark Serrano Patient Location: [id number]* Daily Note: VIANNEY Russell ordered to advance NG tube approx 1in. Pt tolerated well. Priti also notified of pts NG output of 700. Will continue to monitor This note was completed by: DEYVI Birch, SALES REPRESENTATIVE [employer].SILK SPOOLER 07/07/2018 1:28 PM Addendum Emergency General Surgery [...] 0659 07/07/18 07 - 07/08/18 0659 Shift 7706-1684 8292-5293 5111-2937 24 Hour Total 6433-4147 6133-8880 7746-8121 24 Hour Total I N T A [...] 07/07/2018 - SBO (small bowel obstruction) ([facility]) 07/07/2018 - Hypertension - COPD (chronic obstructive [...] questions or concerns Mon-Fri 6a-5p please page [phone]. After 5pm and on Weekends and Holidays, please page [phone] if in ICU or [phone] if on RNF. Previous Version Jacque Meek RN, RN 07/07/2018 11:11 AM Signed PICC/VASCULAR ACCESS PROGRESS NOTE SERVICE DATE: 07/07/2018 SERVICE TIME: [address] Gomez concerning GFR=32. OK [address] PICC. SIGNATURE: Jacqeu Meek RN PATIENT NAME: Mark Serrano DATE: July 07, 2018 TIME: 11:10 AM PAGER/CONTACT #: [phone], LD, RD 07/07/2018 12:51 [...] syndrome as evidenced by significant wt loss area captain, ongoing severe nausea/vomiting Intervention: Start NST [...] Laterality Date - COLONOSCOP W/ OR W/O [facility] SPEC Colonoscopy x 4 - PAST SURGICAL [...] Resting Metabolic Rate: 1139 Estimated kilocalorie needs: 6754-8093 kilocalories determined by 25-30 kcal/kg Estimated protein [...] 07/06/18699 - 07/07/1865807/07/18699 - 07/08/18 0659 Shift 4084-0210 4259-4743 0059-0381 24 Hour Total 0977-6204 1344-2487 6917-5995 24 Hour Total I N T A [...] July 07, 2018 TIME: 11:20 AM PAGER: [phone] Dena Phillip, RN, RN 07/07/2018 1:41 PM Signed PATIENT EDUCATION TOPIC: PROCEDURE / SURGERY: Procedure/Surgery: PICC Insertion PATIENT NAME: Mark Serrano PATIENT LOCATION: [place] [address] [address]* READINESS TO LEARN COGNITIVE ABILITY: Alert and [...] Line Book SUPPLEMENTAL MATERIAL PROVIDED TO PATIENT: [facility] PICC information brochure and Catheter Associated [...] PLACEMENT: Sterile PRIMARY PROCEDURALIST: Christina Gordillo RN ACADEMIC TUTOR: Dena Phillip RN PRE-PROCEDURE REVIEW ALLERGIES Allergen [...] Completed Christina Gordillo RN CATHETER PLACEMENT Brand: [employer] Lot: [id number] Number of Lumens: 2 Type of PICC: Power Injectable PICC Lumen Size: 5 Burmese PLACEMENT TECHNIQUE Lidocaine: Yes. Strength: 1% Volume [...] wire Patient Education Materials: Placed in chart [facility] Central Line Insertion Checklist QUESTIONS or PROBLEMS: Call [phone] SIGNATURE: Christina Gordillo RN PATIENT NAME: Mark [...] Laterality Date - COLONOSCOP W/ OR W/O [facility] SPEC Colonoscopy x 4 - PAST SURGICAL [...] possibility of ?SMA syndrome CT abd/pelvis at [facility]: Distended stomach and proximal duodenum with [...] 07, 2018 TIME: 2:51 PM PAGER/CONTACT #: [phone] Mojgan Bolden, SALES REPRESENTATIVE [employer].PHP DEVELOPER 07/08/2018 10:55 AM Signed Emergency General Surgery [...] 07/07/18699 - 07/08/1865807/08/18699 - 07/09/18 0659 Shift 1063-4083 7892-6090 5654-3741 24 Hour Total 7162-5362 5355-7556 7809-5221 24 Hour Total I N T A [...] 07/07/2018 - SBO (small bowel obstruction) (FORM[facility]LY [facility]) 07/07/2018 - Nicotine use disorder, F17.2 07/07/2018 - Hypertension - COPD (chronic obstructive pulmonary disease) (FORMERLY [facility]) 68 year old male with SBO, significant weight loss/malnutrition, concern for SMA syndrome - Medical management per primary - Cont NG LIWS - Continue TPN - No acute surgical intervention at this point - May need EGD to rule out neoplasm, Feeding tube may be needed 0800 Assessment and plan discussed with attending: Dr. Guerrero. SIGNATURE: Mojgan Bolden APRN.PHP DEVELOPER PATIENT NAME: Mark Serrano DATE: July 08, 2018 TIME: 6:35 AM CONTACT: [id number] Emergency General Surgery Service Pager: For questions or concerns Mon-Fri 6a-5p please page [phone]. After 5pm and on Weekends and Holidays, please page [phone]. Maris Patrick, JUAN MANUEL, LD, RD 07/08/2018 [...] syndrome as evidenced by significant wt loss area captain, ongoing severe nausea/vomiting ? 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 No Advance Directive: Current Advance Directive: Health Care Power of Tint Layer;Living Will In Chart: No Chlorinator Attempted to Assist with AD Completion: No [...] Treatments Has the Patient Been in a Residential Facility in the Past 30 days? No [...] and plan for meeting these needs: ind area captain no needs at this time Does [...] 0 I feel financially burdened by my blc-zz-jjahrt expenses for my prescription medication: Agree somewhat [...] at this time POTENTIAL TRANSITION PLANS Home [facility] OT/plunger scoop operatorResidential Facility/Intermediate Care Facility To Be Determined Patient from home with roommate. IND ASSOCIATE DOCTOR. No needs at this time. Currently on TPN and LIWS with corpak placed. No weekend DC planned. Will follow for any transitional needs SIGNATURE: Lalita Ritter RN PATIENT NAME: Mark Serrano DATE: July 08, 2018 TIME: 3:43 PM PAGER/CONTACT #: [phone] Vera Dhillon RN, RN 07/08/2018 4:00 PM Signed Patient stating that zofran has not been helping his nausea. NG with 250 out from 7a-3p. Now with blood tinged drainage from NG. Surgery paged regarding these findings. Mojgan Bolden, SALES REPRESENTATIVE MALT [employer].PHP DEVELOPER 07/09/2018 10:05 AM Signed Emergency General Surgery [...] 07/08/18699 - 07/09/1865807/09/18699 - 07/10/18 0659 Shift 6558-1809 3890-0182 9434-3756 24 Hour Total 6406-9933 0332-1055 5857-1337 24 Hour Total I N T A K E TPN/PPN 800 800 TPN 800 800 Shift Total 800 800 O U T P U T Urine 175 100 275 Void (ml) 175 100 275 Tubes 415 117 1672 Output (GI Feed/Drain 07/06/18 2230 Admission to Hospital Nasogastric Right Naris) 076 563 5653 Shift Total 425 279 123 2047 Weight (kg) 42.8 43.5 43.5 43.5 43.5 [...] - COPD (chronic obstructive pulmonary disease) (FORMERLY [facility]) 68 year old male with SBO, significant weight loss/malnutrition, concern for SMA syndrome ? - Medical management per primary - Cont NG LIWS - Continue TPN - No acute surgical intervention at this point - Consult GI for EGD to rule out neoplasm, [place] Feeding tube may be needed ? 0810 Assessment and plan discussed with attending: Dr. Guerrero. ? SIGNATURE: Mojgan Bolden, SALES REPRESENTATIVE MALT LIQU[employer].PHP DEVELOPER PATIENT NAME: Mark Serrano DATE: July 09, 2018 TIME: 6:24 AM CONTACT: [id number] Emergency General Surgery Service Pager: For questions or concerns Mon-Fri 6a-5p please page [phone]. After 5pm and on Weekends and Holidays, please page [phone]. Uday Jo MD 07/09/2018 9:52 AM Signed [...] 1. Persistent high NG output 2. 3. SNOQUALMIE: Nausea is better; does not like NG tube Current Facility-Administered Medications: phenol 1 [place] (CHLORASEPTIC) 1 [place] MUCOUS MEMBRANE (TOPICAL MOUTH AND THROAT) q 2 H PRN Uday Valluri 1 [place] at 07/09/18 0851 Parenteral Nutrition - Adult [...] SUBCUTANEOUS q 12 H Priti (Vianney) APRN. MarkSILK SPOOLER 5,000 Units at 07/09/18 0858 0.9% NaCl 3-5 mL 3-5 mL INTRAVENOUS q 12 H Priti (Vianney) APRN. MarkSILK SPOOLER 3 mL at 07/07/18 0037 morphine 1-2 mg injection 1-2 mg INTRAVENOUS q 4 H PRN Priti (Vianney) APRN. MarkSILK SPOOLER 1 mg at 07/07/18 0037 ipratropium-albuterol 3 mL nebulizer solution (DUONEB) 3 mL INHALATION q 4 H PRN Priti (Vianney) APRN. MarkSILK SPOOLER 3 mL at 07/08/18 1556 pantoprazole 40 mg injection (PROTONIX) 40 mg INTRAVENOUS DAILY (6 AM) Gerson Hurd) [place] 40 mg at 07/09/18 0503 0.9% NaCl [...] Serrano DATE: 07/09/18 TIME: 3:06 PM MOBILE: [phone] Mojgan Bolden, SALES REPRESENTATIVE M[employer].PHP DEVELOPER 07/10/2018 1:15 PM Signed Emergency General Surgery [...] 07/09/18699 - 07/10/1865807/10/18699 - 07/11/18 0659 Shift 7354-0135 4732-2622 4544-5214 24 Hour Total 8735-1520 9571-3875 0137-1248 24 Hour Total I N T A K E TPN/PPN 800 800 TPN 800 800 Shift Total 800 800 O U T P U T Urine 650 1 651 Void (ml) 650 650 Urine Not Saved 1 1 Tubes 512 227 7427 Output (GI Feed/Drain 07/06/18 2230 Admission to Hospital Nasogastric Right Naris) 288 498 9608 Shift Total 650 181 241 3614 Weight (kg) 43.5 44 44 44 44 44 44 44 MEDICATIONS Current Facility-Administered Medications: phenol 1 [place] (CHLORASEPTIC) 1 [place] MUCOUS MEMBRANE (TOPICAL MOUTH AND THROAT) q [...] 07/07/2018 - SBO (small bowel obstruction) (FORM[facility]LY [facility]) 07/07/2018 - Nicotine use disorder, F17.2 07/07/2018 - Hypertension - COPD (chronic obstructive pulmonary disease) (FORMERLY [facility]) 68 year old male with SBO, significant [...] - CT chest ? SIGNATURE: Mojgan Bolden APRN.PHP DEVELOPER PATIENT NAME: Mark Serrano DATE: July 10, 2018 TIME: 6:20 AM CONTACT: [id number] Emergency General Surgery Service Pager: For questions or concerns Mon-Wed 6a-5p please page [phone]. After 5pm and on Weekends and Holidays, please page [phone]. Barbara Baldwin DO 07/10/2018 10:31 PM Signed INTERNAL MEDICINE PROGRESS NOTE SERVICE DATE: 07/10/2018 SERVICE TIME: 6:05 PM ADMITTING PHYSICIAN: Dalia Santos Subjective CHIEF COMPLAINT: f/u medical issues listed below Current Facility-Administered Medications: Parenteral Nutrition - Adult INTRAVENOUS ONCE TPN (1800 START) iv contrast (radiology procedure) INTRAVENOUS DIRECTED PRN phenol 1 [place] (CHLORASEPTIC) 1 [place] MUCOUS MEMBRANE (TOPICAL MOUTH AND THROAT) q [...] UPPER GI W SMALL BOWEL SERIES (Order #[id number]) on 07/07/2018 Assessment/Plan Possible SMA syndrome/obstruction PLAN: [...] 11, 2018 TIME: 8:44 AM PAGER/CONTACT #: [phone] Jose Juan Martinez MD 07/11/2018 9:04 AM [...] Laterality Date - COLONOSCOP W/ OR W/O [facility] SPEC Colonoscopy x 4 - PAST SURGICAL [...] (radiology procedure) INTRAVENOUS DIRECTED PRN Mojgan Ring (Flatbed Truck Driver) Yuan [MAR Hold due to Transfer] acetaminophen 650 mg suppository (TYLENOL) 650 mg RECTAL q 4 H PRN Barbara Baldwin [MAR Hold due to Transfer] phenol 1 [place] (CHLORASEPTIC) 1 [place] MUCOUS MEMBRANE (TOPICAL MOUTH AND THROAT) q 2 H PRN Uday Valluri 1 [place] at 07/09/18 0851 [MAR Hold due to [...] 5,000 Units SUBCUTANEOUS q 12 H Priti (Operators Teacher) APRN. MarkSILK SPOOLER 5,000 Units at 07/10/18 192 [MAR Hold due to Transfer] 0.9% NaCl 3-5 mL 3-5 mL INTRAVENOUS q 12 H Priti (Vianney) APRN. MarkSILK SPOOLER 3 mL at 07/07/18 0037 [MAR Hold due to Transfer] morphine 1-2 mg injection 1-2 mg INTRAVENOUS q 4 H PRN Priti (Vianney) APRN. MarkSILK SPOOLER 1 mg at 07/07/18 0037 [MAR Hold due to Transfer] ipratropium-albuterol 3 mL nebulizer solution (DUONEB) 3 mL INHALATION q 4 H PRN Priti (Vianney) APRN. MarkSILK SPOOLER 3 mL at 07/08/18 1556 [MAR Hold due to Transfer] pantoprazole 40 mg injection (PROTONIX) 40 mg INTRAVENOUS DAILY (6 AM) Gerson Hurd) [place] 40 mg at 07/11/18 0511 [MAR Hold [...] July 11, 2018 TIME: 9:03 AM CSN: [id number] Felicitas Gates RN, RN 07/11/2018 9:10 AM [...] 06/30/2018 Status: F Source: [facility] 11:05 AM [facility] REPOSITORY TYPE CODE TESTS RESULT OUT OF [...] Performed By: #### L100.0100 #### [facility] [address] [facility]. [place], [place], [address] COMPREHENSIVE METABOLIC Collected: 06/30/2018 Status: F Source: [facility] 11:05 AM [facility] REPOSITORY TYPE CODE TESTS RESULT OUT OF [...] By: #### L500.4050, L501.9520 #### [facility] [address] [facility] [place], [place], [address] THYROID STIM HORMONE Collected: 06/30/2018 Status: F Source: [place] (TSH) 11:05 AM [facility] REPOSITORY TYPE CODE TESTS RESULT OUT OF RANGE REFERENCE UNITS LAB L501.9520 0.358-3.74 uIU/mL Normal TSH 0.90 Performed By: #### L500.4050, L501.9520 #### [facility] [address] [facility] [place], [place], [address] VITAMIN D,25 HYDROXY Collected: 06/30/2018 Status: F Source: [place] 11:05 AM [facility] REPOSITORY TYPE CODE TESTS RESULT OUT OF REFERENCE UNITS RANGE LAB L506.1000 29.95-100.01 ng/mL Low Vitamin D 18.0 25-OH Result Comment: Vitamin D 25(OH) Status Range Deficiency <20 ng/mL (50nmol/L) Insuffciency 20 - 30 ng/mL (50 - 75 nmol/L) Sufficiency 30 - 100 ng/mL (75 - 250 nmol/L) Toxicity >100 ng/mL (>250 nmol/L) Performed By: #### L506.1000 #### [facility] [address] [place], [address] PULMONARY VISIT REPORT Observed: 06/23/2018 Status: F Source: [place] 12:28 PM [facility] REPOSITORY [facility] [address] [place] [address] OFFICE VISIT Date of Service: 06/23/18 MR#: [id number] Acct: [id number] Name: MARK SERRANO Rep #: [id number] : 1950 Provider: Delma Frey Age/Sex: 68/M Location: [place] Status: Signed Assessment AND Plan 1. 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 [place] [address] OFFICE VISIT Date of Service: 06/16/18 MR#: [id number] Acct: [id number] Name: MARK SERRANO Rep #: [id number] : 1950 Provider: Aj Jimenez MD Age/Sex: 68/M Location[place] [facility] Status: Signed HPI HPI Chief Complaint: Routine f/u Details: Mr. Serrano is a very pleasant 68-year-old gentleman with a history of Crohn's disease, previous smoker who quit in June 2016, history of GI bleeding, history of kidney stones, stage IV chronic renal sufficiency with a creatinine clearance of 34, who presented initially to [facility] with substernal chest pain and non-ST [...] developed lower GI bleeding and [facility]. At that time he was emergently fluid resuscitated and transferred to [facility] where he underwent an EGD 2, [...] smoking in June 2016. 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 Atherosclerosis of coronary artery of hoh heart without angina pectoris I25.10 Nonobstructive CAD [...] smoking. Recommend that we re-consult with Dr. cOampo and have him seen on a periodic [...] 3 Diagnoses Atherosclerosis of coronary artery of hoh heart without angina pectoris I25.10 CKD (chronic kidney disease) stage 4, GFR 15-29 ml/min N18.4 COPD with acute exacerbation J44.1 Coding Level of Care Code Off vis,est,level 3 Diagnoses Atherosclerosis of coronary artery of hoh heart without angina pectoris I25.10 CKD (chronic kidney disease) stage 4, GFR 15-29 ml/min N18.4 COPD with acute exacerbation J44.1 06/16/18 1527 <Electronically signed by Aj Jimenez MD> Date Aj Jimenez MD Cosigner Signature: Date (if applicable) CC: Jalen Rodríguez MD CBC W/DIFF, AUTOMATED Collected: 12/30/2017 Status: F Source: [facility] 12:04 PM [facility] REPOSITORY TYPE CODE TESTS RESULT OUT OF [...] Performed By: #### L100.0100 #### [facility] [address] [place], [address] COMPREHENSIVE METABOLIC Collected: 12/30/2017 Status: F [facility]04 PM [facility] REPOSITORY TYPE CODE TESTS RESULT OUT OF [...] #### L500.4050, L501.9520, L501.9910 #### [facility] [address] [place], [address] THYROID STIM HORMONE Collected: 12/30/2017 Status: F Source: [place] (TSH) 12:04 PM [facility] REPOSITORY TYPE CODE TESTS RESULT OUT OF RANGE REFERENCE UNITS LAB L501.9520 0.358-3.74 uIU/mL Normal TSH 1.66 Performed By: #### L500.4050, L501.9520, L501.9910 #### [facility] [address] [facility] [place], [address] PSA,TOTAL - ANNUAL Collected: 12/30/2017 Status: F Source: [facility] SCREEN 12:04 PM [facility] REPOSITORY TYPE CODE TESTS RESULT OUT OF RANGE REFERENCE UNITS LAB L501.9910 0.00-4.00 ng/mL Normal PSA,TOT 1.27 SCREEN Result Comment: This test was performed using the TPSA assay method for the [employer] chemistry system. Values obtained with different assay methods cannot be used interchangably. When changing PSA assays in the course of monitoring a patient, additional sequential testing should be carried out to confirm baseline values. Performed By: #### L500.4050, L501.9520, L501.9910 #### [facility] [address] [place], [place], [address] HEPATITIS C ANTIBODIES Collected: 12/30/2017 Status: F Source: [place] 12:04 PM [facility] REPOSITORY TYPE CODE TESTS RESULT OUT OF RANGE REFERENCE UNITS LAB L3100.0650 0.0-0.9 s/co ratio Normal HEP C AB <0.1 Result Comment: Negative: < 0.8 Indeterminate: 0.8 - 0.9 Positive: > 0.9 The CDC recommends that a positive HCV antibody result be followed up with a HCV Nucleic Acid Amplification test (979885). Performed at: - [facility] [id number] Church Administrator: Boone Wong PhD, Phone: [phone] Performed By: #### L3100.0625 #### [facility] (refer to report for specific site) refer to report for address and phone number 12 LEAD ELECTROCARDIOGRAM Observed: 12/22/2017 Status: F Source: [place] 1:45 PM [facility] REPOSITORY [facility] [address] [place] [address] 12 Lead EKG 12/20/17 0325 MR#: [id number] Acct: [id number] Name: MARK SERRANO Rep #: [id number] : 1950 67 From: Robert Campbell MD [...] Confirmed by ROBERT CAMPBELL MD ([id number]), editor continuity and script CRISTO SANTOS ([id number]) on 12/22/2017 1:45:08 PM Referred By: Aj Jimenez Confirmed By:ROBERT CAMPBELL MD 12/22/17 1345 Date Robert Campbell MD CC: Leti Lopez MD; Jalen Rodríguez MD Signed DISCHARGE SUMMARY Observed: 12/22/2017 Status: F Source: [place] 7:31 AM [facility] REPOSITORY [facility] Medical Records Department [address] [place] [address] Discharge Summary 12/22/17 1230 MR#: [id number] Acct: [id number] Name: MARK SERRANO Rep #: [id number] : 1950 67 From: Dalia Roberson MD PCP: Marcos ABRAHAM,Jalen Mary Status: ADM IN Y Location: ICU [id number] Discharge Date and Diagnosis - Problem List [...] insufficiency (Chronic) Atherosclerosis of coronary artery of hoh heart without angina pectoris (Chronic) Nicotine abuse (Chronic) Hypertension (Chronic) COLD (chronic obstructive lung disease) (Chronic) CKD (chronic kidney disease) stage 4, GFR 15-29 ml/min (Chronic) Following with Dr. [facility] Course and Treatment Imaging Results: Clinical [...] mg PO UD #30 tab 12/22/17 Tiotropium [place] [Spiriva 18 MCG] 1 puff INHALATION DAILY #1 inhaler 12/22/17 Following Prescrptions Were Given to Patient: Budesonide/Formoterol 160/4.5 [Symbicort 160/4.5 Mcg Inhaler (SP)] 1 puff INHALATION DAILY #1 inhaler Levofloxacin [Levaquin] 250 mg PO DAILY@0600 #5 tab Prednisone 10 mg PO UD #30 tab Tiotropium [place] [Spiriva 18 MCG] 1 puff INHALATION DAILY [...] applicable Code Visit Inpatient E AND M: 48664 Disch Hosp 12/22/17 0731 <Electronically signed by Dalia Roberson MD> Date Dalia Roberson MD Cosigner Signature (if applicable): Date CC: Dalia Roberson MD; Jalen Rodríguez MD Signed DISCHARGE INSTRUCTION Observed: 12/22/2017 Status: F Source: [place] 7:30 AM [facility] REPOSITORY [facility] Medical Records Department [address] [place] [address] Instructions for Home/Discharge Instructions 12/22/17 0728 MR#: [id number] Acct: [id number] Name: MARK SERRANO Rep #: [id number] : 1950 67 From: Dalia Roberson MD [...] mg PO UD #30 tab 12/22/17 Tiotropium [place] [Spiriva 18 MCG] 1 puff INHALATION DAILY #1 inhaler 12/22/17 The following prescriptions were given: Budesonide/Formoterol 160/4.5 [Symbicort 160/4.5 Mcg Inhaler (SP)] 1 puff INHALATION DAILY #1 inhaler Levofloxacin [Levaquin] 250 mg PO DAILY@0600 #5 tab Prednisone 10 mg PO UD #30 tab Tiotropium [place] [Spiriva 18 MCG] 1 puff INHALATION DAILY [...] F Source: [place] NO DIFF 5:50 AM [facility] REPOSITORY TYPE CODE TESTS RESULT OUT OF [...] Performed By: #### L100.0500 #### [facility] [address] [place], [place], [address] BASIC METABOLIC Collected: 12/22/2017 Status: F Source: [facility] PROFILE (BMP) 5:50 AM [facility] REPOSITORY TYPE CODE TESTS RESULT OUT OF [...] By: #### L500.2500, L501.5200 #### [facility] [address] [facility] [place], [place], [address] MAGNESIUM Collected: 12/22/2017 Status: F Source: [place] 5:50 AM [facility] REPOSITORY TYPE CODE TESTS RESULT OUT OF RANGE REFERENCE UNITS LAB L501.5200 1.6-2.6 mg/dL Normal MG 2.0 Result Comment: Please note revised Magnesium reference range effective 2017. Performed By: #### L500.2500, L501.5200 #### [facility] [address] [place], [place], [address] CBC-COMPLETE BLOOD CNT Collected: 12/21/2017 Status: F Source: [place] NO DIFF 9:30 AM [facility] REPOSITORY TYPE CODE TESTS RESULT OUT OF [...] Performed By: #### L100.0500 #### [facility] [address] [place], [address] BASIC METABOLIC Collected: 12/21/2017 Status: F Source: [facility] PROFILE ([facility]) 9:30 AM [facility] REPOSITORY TYPE CODE TESTS RESULT OUT OF [...] By: #### L500.2500, L501.5200 #### [facility] [address] [facility] [address] [place], [address] MAGNESIUM Collected: 12/21/2017 Status: F Source: REY[place] 9:30 AM [facility] REPOSITORY TYPE CODE TESTS RESULT OUT OF RANGE REFERENCE UNITS LAB L501.5200 1.6-2.6 mg/dL Normal MG 1.8 Result Comment: Please note revised Magnesium reference range effective 2017. Performed By: #### L500.2500, L501.5200 #### [facility] [address] [facility] [place], [address] CONSULTATION Observed: 12/20/2017 Status: F Source: [place] 2:31 PM [facility] REPOSITORY [facility] Medical Records Department [address] [place] [address] Consultation 12/20/17 0647 MR#: [id number] Acct: [id number] Name: MARK SERRANO Birdie Rep #: [id number] : 1950 67 From: Jose D Wolff DO PCP: Marcos ABRAHAM,[facility] Status: ADM IN Location: ICU ICU-1 Reason [...] insufficiency (Chronic) Atherosclerosis of coronary artery of hoh heart without angina pectoris (Chronic) Nicotine abuse [...] - Nasopharyngeal Influenza Types A,B Direct FA ([facility] [place] - Final Clinical Impression(s) from Imaging Studies [...] as indicated. This note was generated with Mobiveryation software. It may contain incorrect words, spelling, and punctuation that were not noted in checking the note before signing. DISPOSITION: The patient is medically stable for transfer out of the intensive care unit. Code Visit Inpatient E AND M: 60913 Init Hosp L3 12/20/17 1431 <Electronically signed by Jose D Wolff DO> Date Jose D Wolff DO Cosigner Signature (if applicable): Date CC: Jose D Wolff D.O.; Jalen Rodríguez MD Signed LACTIC ACID Collected: 12/20/2017 Status: F Source: [facility] 7:30 AM [facility] REPOSITORY TYPE CODE TESTS RESULT OUT OF RANGE REFERENCE UNITS LAB L503.6005 0.4-2.0 mmol/L Normal LACTIC ACID 1.0 Performed By: #### L503.6005 #### [facility] [address] [place], [place], [address] Observed: 12/20/2017 Status: F Source: [place] RESPIRATORY PANEL 7:09 AM [facility] MOLECULAR REPOSITORY RP PANEL ADENOVIRUS Not Detected [...] Performed By: #### M100.638 #### [facility] [address] [place] [address]. [place], [address] Observed: 12/20/2017 Status: F Source: [place] CULTURE, SPUTUM 6:00 AM [facility] REPOSITORY Gram Stain * This is an [...] Performed By: #### M100.0800 #### [facility] [address] [place], [address] M R STAPH AUREUS Collected: 12/20/2017 Status: F Source: REY[place] DNA BY PCR 4:50 AM [facility] REPOSITORY Order Comment: Source: NASAL SWAB TYPE CODE TESTS RESULT OUT OF RANGE REFERENCE UNITS LAB L8200.1100 Negative Normal MRSA Negative RESULT Performed By: #### L8200.1000 #### [facility] [address] [place], [address] HISTORY AND PHYSICAL Observed: 12/20/2017 Status: F Source: RE[place] EXAM 4:19 AM [facility] REPOSITORY [facility] Medical Records Department [address] [place] [address] History and Physical 12/20/17 0412 MR#: [id number] Acct: [id number] Name: MARK SERRANO Rep #: [id number] : 1950 67 From: Kam Lowe MD [...] insufficiency (Chronic) Atherosclerosis of coronary artery of hoh heart without angina pectoris (Chronic) Nicotine abuse [...] EMERGENCY DEPARTMENT Observed: 12/20/2017 Status: F Source: REY[place] SUMMARY 3:49 AM [facility] REPOSITORY [facility] Medical Records Department [address] [place] [address] Emergency Department Summary 12/20/17 0253 MR#: [id number] Acct: [id number] Name: MARK SERRANO Rep #: [id number] : 1950 67 From: Leti Lopez MD [...] COPD exacerbation This note was generated with [employer] dictation software. It may contain incorrect words, [...] your Primary Care Provider. Call [facility] ([phone]) or report to the closest Emergency Room. Call 911 if necessary. 12/20/17 0349 <Electronically signed by Leti Lopez MD> Date Leti Lopez MD Cosigner Signature (If Indicated): Date CC: Jalen Rodríguez MD Observed: 12/20/2017 Status: F Source: REYNO INFLUENZA A+B (RAPID 3:30 AM [facility] SENAIT) REPOSITORY Order Date: 12/20/17 FLU A/B Rapid Negative test results should be confirmed by culture. Order Rapid Viral Culture for Influenzae A+B ([id number]) if clinically indicated. Influenza Ag, Direct Presumptive NEGATIVE for Influenza A/B Antigen (See Note) Performed By: #### M101.0101 #### [facility] [address] [place], [address] BLOOD GASES BY CPS Collected: 12/20/2017 Status: F Source: REYNO 3:16 AM [facility] REPOSITORY TYPE CODE TESTS RESULT OUT OF [...] Performed By: #### L9000.0800 #### [facility] Point of Care [address] [place], [place] [address] Observed: 12/20/2017 Status: F Source: JOSEPH CULTURE, BLOOD (WB) 3:00 AM [facility] REPOSITORY BC No growth in 5 days. Performed By: #### M200.1000 #### [facility] [address] [place], [address] CBC W/DIFF, AUTOMATED Collected: 12/20/2017 Status: F Source: JOSEPH 2:55 AM [facility] REPOSITORY TYPE CODE TESTS RESULT OUT OF [...] Performed By: #### L100.0100 #### [facility] [address] [place], [address] BASIC METABOLIC Collected: 12/20/2017 Status: F Source: REYNO PROFILE ([facility]) 2:55 AM [facility] REPOSITORY Order Comment: 'TROP' Serial specimen #1, [...] By: #### L500.2500, L501.4010 #### [facility] [address] [place], [place], [address] TROPONIN-I Collected: 12/20/2017 Status: F Source: REYNO 2:55 AM [facility] REPOSITORY Order Comment: 'TROP' Serial specimen #1, #2, #3, or #4: 1 TYPE CODE TESTS RESULT OUT OF RANGE REFERENCE UNITS LAB L501.4010 <0.06 ng/mL Normal < 0.02 TROPONIN-I Result Comment: TROPONIN-I EXPECTED VALUES <0.05 NEGATIVE 0.06 - 0.59 AT RISK OF [place] > OR = 0.60 SUGGEST [place] Performed By: #### L500.2500, L501.4010 #### [facility] [address] [facility] [address] BNP,B-TYPE NATRIURETIC Collected: 12/20/2017 Status: F Source: REYNO PEPTIDE 2:55 AM [facility] REPOSITORY TYPE CODE TESTS RESULT OUT OF RANGE REFERENCE UNITS LAB L503.6620 0-100 pg/mL Normal B-TYPE 64.4 GRACIELA PEP Performed By: #### L503.6620 #### [facility] [address] [facility] [address] LACTIC ACID Collected: 12/20/2017 Status: F Source: JOSEPH 2:55 AM [facility] REPOSITORY Order Comment: Yes/No query for Sepsis Lactate Rule Y TYPE CODE TESTS RESULT OUT OF REFERENCE UNITS RANGE LAB L503.6005 0.4-2.0 mmol/L High LACTIC ACID 2.7 Result Comment: Critical Result(s) Called at: 04:11:07 12/20/2017 by: OPAL AGRCIA RN ED Performed By: #### L503.6005 #### [facility] [address] [facility] [place], [address] Observed: 12/20/2017 Status: F Source: REYNO CULTURE, BLOOD (WB) 2:55 AM [facility] REPOSITORY BC No growth in 5 days. Performed By: #### M200.1000 #### [facility] [address] [facility] [place], [address] CHEST 1 VIEW Observed: 12/20/2017 Status: F Source: JOSEPH (PORTABLE) 2:51 AM [facility] REPOSITORY [facility] [address] [place] [address] Chest 1 View (Portable) MR#: [id number] Acct: [id number] Name: ZACHMARK Birdie Rep #: [id number] : 1950 M 67 From: Tanner Bronson PCP: Care Physician, No Primary Status: PRE ER Study: Chest 1 View (Portable) Date of Exam: 12/20/17 Exam# [id number] Ordering Dr: Leti Lopez MD STUDY: X-RAY [...] No Primary Care Physician; Leti Lopez MD Pizza Delivery: Signed LIVER PROFILE Collected: 12/10/2017 Status: F Source: REYNO 1:40 PM [facility] REPOSITORY TYPE CODE TESTS RESULT OUT OF [...] By: #### L500.3400, L500.4100 #### [facility] [address] [place], [address] LIPID PROFILE Collected: 12/10/2017 Status: F Source: REYNO 1:40 PM [facility] REPOSITORY TYPE CODE TESTS RESULT OUT OF [...] By: #### L500.3400, L500.4100 #### [facility] [address] [place], [address] CARDIOLOGY VISIT Observed: 11/25/2017 Status: F Source: REYNO REPORT 2:42 PM [facility] REPOSITORY [facility] [address] [place] [address] OFFICE VISIT Date of Service: 11/25/17 MR#: [id number] Acct: [id number] Name: MARK SERRANO Rep #: [id number] : 1950 Provider: Aj Jimenez MD Age/Sex: 67/M Location: [place] Status: Signed HPI 6 M FU: Chief Complaint: Routine follow-up Details: Mr. Serrano is a very pleasant 67-year-old gentleman with a history of Crohn's disease, previous smoker who quit in June 2016, history of GI bleeding, history of kidney stones, stage IV chronic renal sufficiency with a creatinine clearance of 34, who presented initially to [facility] with substernal chest pain and non-ST [...] developed lower GI bleeding and [facility]. At that time he was emergently fluid resuscitated and transferred to [facility] where he underwent an EGD 2, [...] smoking in June 2016. He presented to [facility] ER on 08/12/16 with abdominal pain and [...] Q5M PRN 01/17/15 [History Confirmed 11/25/17] Tiotropium [place] [Spiriva 18 MCG] 1 puff INHALATION DAILY [...] insufficiency (Chronic) Atherosclerosis of coronary artery of hoh heart without angina pectoris (Chronic) Nicotine abuse [...] (2 x 10 mg) PO ACHS [facility] ed ondansetron Discontinued Reason: Order Chang4 mg PO Q8H PRN PRN Nausea [facility] ed Plan Detail Follow Up 6 Months (Tony) Coding Level of Care Code Off vis,est,level 3 Coding Level of Care Code Off vis,est,level 3 11/25/17 1754 <Electronically signed by Aj Jimenez MD> Date Aj Jimenez MD Cosigner Signature: Date (if applicable) CC: ALLERGIES ALLERGIES DATE TYPE / CODE NAME / CODE REACTION SEVERITY SOURCE 10/25/2018 Drug Penicillins/F0010 Other Unknown [place] Allergy/416 97368(RXNORM) Community 702296([facility] ED CT) Repository 07/06/2018 DRUG PENICILLIN Mental Chg [facility] INGREDI/419 Other [place] 782047([facility] ED CT) /[id number] PENICILLIN [facility] 6([facility] CT) Repository ENCOUNTERS ENCOUNTERS ADMIT/DISCHARGE ACCOUNT NUMBER ADMITTING ENCOUNTER LOCATION SOURCE CLASS 11/16/2018 [id number] [facility]ulatory [facility] ding:POLAB3 Repository 11/15/2018 [id number] [facility] ding:[facility]S Repository 11/11/2018/11/15/19 [id number] Ambulatory [address] [place] Repository 11/09/2018 [id number] [facility] ding:LAB Repository 10/26/2018/10/30/19 [id number] [place], Inpatient [address] ding:PCURoom Repository : [id number]: 1 10/26/2018 [id number] [place], Ambulatory BMSBuilding: [place] [facility] Repository 10/26/2018 [id number] [place], Ambulatory BMSBuilding: [place] [facility] Repository 10/26/2018 [id number] [place], Ambulatory BMSBuilding: [place] [facility] Repository 10/26/2018 [id number] [place], Ambulatory BMSBuilding: [place] [facility]MS.[facility] Repository 10/26/2018 [id number] [place], Ambulatory BMSBuilding: [place] BMS.[facility] Repository 10/26/2018 [id number] [place], Ambulatory BMSBuilding: [place] [facility]MS.[facility] Repository 10/26/2018/01/06/20 [id number] Ambulatory BMSBuilding: [place] 19 [facility] Repository 10/04/2018 [id number] Ambulatory BMSBuilding: [place] [facility] Repository 10/04/2018 [id number] [facility] ding:PSN Repository 09/28/2018/09/28/20 [id number] Ambulatory BMSBuilding: [place] 18 BMS.[facility] Repository 07/06/2018/07/13/20 [id number] DALIA SANTOS Inpatient [place] 18 [facility] Repository 07/06/2018/07/13/20 [id number] Jeaneth SANTOS Inpatient [facility] 18 [facility] MEDICAL Repository CENTERBuildi nRoom: 7106Bed: 02 07/06/2018/07/06/20 [id number] Emergency [address] ding:ED Repository 06/30/2018 [id number] [facility]ulatory [facility] ding:POLAB3 Repository 06/23/2018/06/23/20 [id number] Ambulatory BMSBuilding: [place] 18 BMS.[facility] Repository 06/16/2018/06/16/20 [id number] Ambulatory BMSBuilding: [place] 18 BMS.[facility] Repository 06/14/2018 [id number] Ambulatory BMSBuilding: [place] BMS.[facility] Repository 12/30/2017 [id number] [facility] ding:POLAB3 Repository 12/20/2017/12/22/19 [id number] Kam Lowe Inpatient [address] ding:ICURoom Repository : [id number]: 1 12/20/2017 [id number] Kam Lowe Ambulatory BMSBuilding: [place] BMS.[facility] Repository 12/20/2017 [id number] Kam Lowe Ambulatory BMSBuilding: [place] BMS.CF.[facility] Repository 12/20/2017 [id number] Kam Lowe Ambulatory BMSBuilding: [place] BMS.[facility] Repository 12/20/2017 [id number] Chrissy, Kam Ambulatory BMSBuilding: [place] BMS.CF.[facility] Repository 12/20/2017 [id number] Chrissy, [facility] Ambulatory BMSBuilding: [place] BMS.[facility] Repository 12/20/2017 [id number] Chrissy, [facility] Ambulatory BMSBuilding: [place] BMS.CF.[facility] Repository 12/10/2017 [id number] Ambulatory [place] [facility] Hospital ding:LAB Repository 11/25/2017/11/25/19 [id number] Ambulatory BMSBuilding: [place] 18 BMS.[facility] Repository 11/25/2017 [id number] Ambulatory BMSBuilding: [place] BMS.[facility] Repository 11/25/2017 [id number] Ambulatory BMSBuilding: [place] BMS.[facility] Repository PAYERS PAYERS ENCOUNTER GUARANTOR PAYER SUBSCRIBER SOURCE 11/16/2018 MARK E Primary MARK E [place] [id number] E Insurance:MEDICARE HORNERDOB: [facility], PART A [facility] [id number] [facility] [address]Jel: Number: Repository [id number] () Date:2018-11-16 11/16/2018 Secondary MARK E [place] [facility] Number: [id number] Hospital [id number] Repository Date:2018-11-16 11/16/2018 Tertiary NOT GIVENUNK [place] Insurance:SELF PAY [facility] Number: Effective Repository Date:2018-11-16 11/15/2018 MARK E Primary MARK E [place] [id number] E Insurance:MEDICARE HORNERDOB: [facility] PART A [facility] [id number] Behavioral Health Services [address]Uan: Number: Repository [id number] (HP) Date:2018-11-09 11/15/2018 Secondary MARK E [place] Insurance:MEDICAIDPol [facility]: [facility] icy Number: [id number] Hospital [id number] Repository Date:2018-11-09 11/15/2018 Tertiary NOT GIVENUNK [place] Insurance:SELF PAY [facility] Number: Effective Repository Date:2018-11-09 11/09/2018 MARK E Primary MARK E [place] [id number] E Insurance:MEDICARE HORNERDOB: [facility], PART A [facility] [id number] Behavioral Health Services [address]Zmy: Number: Repository [id number] (HP) Date:2018-11-09 11/09/2018 Secondary MARK E [place] Insurance:MEDICAIDPol [facility] ic Number: [id number] Hospital [id number] Repository Date:2018-11-09 11/09/2018 Tertiary NOT GIVENUNK [place] Insurance:SELF PAY [facility] Number: Effective Repository Date:2018-11-09 10/26/2018 MARK E Primary MARK E [place] [id number] E Insurance:MEDICARE HORNERDOB: [facility], PART A [facility] [id number] Behavioral Health Services [address]Bjc: Number: Repository [id number] (HP) Date:2018-10-25 10/26/2018 Secondary MARK E [place] Insurance:MEDICAIDPol HORNERDOB: [facility] ic Number: [id number] [id number] Repository Date:2018-10-25 10/26/2018 Tertiary NOT GIVENUNK [place] Insurance:SELF PAY [facility] Number: Effective Repository Date:2018-10-25 10/26/2018 MARK E Primary MARK E [place] [id number] E Insurance:MEDICARE HORNERDOB: [facility] PART A [facility] [id number] [place] [address]Cpv: Number: Repository [id number] (HP) Date:2018-10-25 10/26/2018 Secondary MARK E [place] Insurance:MEDICAIDPol HORNERDOB: [facility] icy Number: [id number] [place] [address] [id number] Repository Date:2018-10-25 10/26/2018 Tertiary NOT GIVENUNK [place] Insurance:SELF PAY [facility] Number: Effective Repository Date:2018-10-25 10/26/2018 MARK E Primary MARK E [place] [id number] E Insurance:MEDICARE HORNERDOB: [facility], PART A [facility] [id number] Behavioral Health Services [address]Qwv: Number: Repository [id number] (HP) Date:2018-10-25 10/26/2018 Secondary MARK E [place] Insurance:MEDICAIDPol HORNERDOB: [facility] ic Number: [id number] Hospital [id number] Repository Date:2018-10-25 10/26/2018 Tertiary NOT GIVENUNK [place] Insurance:SELF PAY [facility] Number: Effective Repository Date:2018-10-26 10/26/2018 MARK E Primary MARK E [place] [id number] E Insurance:MEDICARE HORNERDOB: [facility] PART A [facility] [id number] Behavioral Health Services [address]Ekg: Number: Repository [id number] (HP) Date:2018-10-25 10/26/2018 Secondary MARK E [place] Insurance:MEDICAIDPol HORNERDOB: [facility] ic Number: [id number] [place] [address] [id number] Repository Date:2018-10-25 10/26/2018 Tertiary NOT GIVENUNK [place] Insurance:SELF PAY [facility] Number: Effective Repository Date:2018-10-26 10/26/2018 MARK E Primary MARK E [place] [id number] E Insurance:MEDICARE HORNERDOB: [facility] PART A [facility] [id number] Hospital [place] [address]Qbx: Number: Repository [id number] (HP) Date:2018-10-25 10/26/2018 Secondary MARK E [place] Insurance:MEDICAIDPol HORNERDOB: [facility] ic Number: [id number] [place] [address] [id number] Repository Date:2018-10-25 10/26/2018 Tertiary NOT GIVENUNK [place] Insurance:SELF PAY [facility] Number: Effective Repository Date:2018-10-26 10/26/2018 MARK E Primary MARK E [place] [id number] E Insurance:MEDICARE HORNERDOB: [facility], PART A [facility] [id number] Behavioral Health Services [address]Snp: Number: Repository [id number] (HP) Date:2018-10-25 10/26/2018 Secondary MARK E [place] Insurance:MEDICAIDPol [facility] ic Number: [id number] Hospital [id number] Repository Date:2018-10-25 10/26/2018 Tertiary NOT GIVENUNK [place] Insurance:SELF PAY [facility] Number: Effective Repository Date:2018-10-26 10/26/2018 MARK E Primary MARK E [place] [id number] E Insurance:MEDICARE HORNERDOB: [facility] PART A [facility] [id number] [address]Xkc: Number: Repository [id number] (HP) Date:2018-10-25 10/26/2018 Secondary MARK E [place] Insurance:MEDICAIDPol HORNERDOB: [facility] ic Number: [id number] Hospital [id number] Repository Date:2018-10-25 10/26/2018 Tertiary NOT GIVENUNK [place] Insurance:SELF PAY [facility] Number: Effective Repository Date:2018-10-26 10/26/2018 MARK E Primary MARK E [place] [id number] E Insurance:MEDICARE HORNERDOB: [facility] PART A [facility] [id number] [place] [address]Dtl: Number: Repository [id number] (HP) Date:2018-10-25 10/26/2018 Secondary MARK E [place] Insurance:MEDICAIDPol HORNERDOB: [facility] icy Number: [id number] [place] [address] [id number] Repository Date:2018-10-25 10/26/2018 Tertiary NOT GIVENUNK [place] Insurance:SELF PAY [facility] Number: Effective Repository Date:2018-10-26 10/04/2018 MARK E Primary MARK E [place] [id number] E Insurance:MEDICARE HORNERDOB: [facility], PART A [facility] [id number] Behavioral Health Services [address]Cha: Number: Repository [id number] (HP) Date:2018-07-04 10/04/2018 Secondary MARK E [place] Insurance:MEDICAIDPol HORNERDOB: [facility] ic Number: [id number] Hospital [id number] Repository Date:2018-07-04 10/04/2018 Tertiary NOT GIVENUNK [place] Insurance:SELF PAY [facility] Number: Effective Repository Date:2018-10-04 10/04/2018 MARK E Primary MARK E [place] [id number] E Insurance:MEDICARE HORNERDOB: [facility] PART A [facility] [id number] Behavioral Health Services [address]Kzd: Number: Repository [id number] (HP) Date:2018-07-04 10/04/2018 Secondary MARK E [place] Insurance:MEDICAIDPol HORNERDOB: [facility] ic Number: [id number] Hospital [id number] Repository Date:2018-07-04 10/04/2018 Tertiary NOT GIVENUNK [place] Insurance:SELF PAY [facility] Number: Effective Repository Date:2018-07-04 09/28/2018 MARK E Primary MARK E [place] [id number] E Insurance:MEDICARE HORNERDOB: [facility], PART A [facility] [id number] Behavioral Health Services [address]Ttx: Number: Repository [id number] (HP) Date:2018-06-23 09/28/2018 Secondary MARK E [place] Insurance:MEDICAIDPol HORNERDOB: [facility] icy Number: [id number] Hospital [id number] Repository Date:2018-06-23 09/28/2018 Tertiary NOT GIVENUNK [place] Insurance:SELF PAY [facility] Number: Effective Repository Date:2018-09-21 07/06/2018 MARK E Primary MARK E [facility] HORNERDOB: Insurance:MEDICARE A [facility] E AND olic Number: [id number] [facility] for [facility] [id number] [place] [address]Dze: Date: () 07/06/2018 Secondary MARK E [facility] Insurance:[place] HORNERDOB: [facility] MEDICAIDPolicy [id number] Repository Number: [id number] Date: 07/06/2018 MARK E Primary MARK E [place] [id number] E Insurance:MEDICARE HORNERDOB: [facility] PART A [facility] [id number] Behavioral Health Services [address]Uvp: Number: Repository [id number] () Date:2018-07-06 07/06/2018 Secondary MARK E [place] Insurance:MEDICAIDPol [facility] ic Number: [id number] Hospital [id number] Repository Date:2018-07-06 07/06/2018 Tertiary NOT GIVENUNK [place] Insurance:SELF PAY [facility] Number: Effective Repository Date:2018-07-06 06/30/2018 MARK E Primary MARK E [place] [id number] E Insurance:MEDICARE HORNERDOB: [facility] PART A [facility] [id number] [place] [address]Dff: Number: Repository [id number] () Date:2018-06-30 06/30/2018 Secondary MARK E [place] Insurance:MEDICAIDPol [facility] ic Number: [id number] Hospital [id number] Repository Date:2018-06-30 06/30/2018 Tertiary NOT GIVENUNK [place] Insurance:SELF PAY [facility] Number: Effective Repository Date:2018-06-30 06/23/2018 MARK E Primary MARK E [place] [id number] E Insurance:MEDICARE HORNERDOB: [facility] PART A [facility] [id number] Behavioral Health Services [address]Pnq: Number: Repository [id number] (HP) Date:2018-06-17 06/23/2018 Secondary MARK E [place] Insurance:MEDICAIDPol HORNERDOB: [facility] icy Number: [id number] Hospital [id number] Repository Date:2018-06-17 06/23/2018 Tertiary NOT GIVENUNK [place] Insurance:SELF PAY [facility] Number: Effective Repository Date:2018-06-17 06/16/2018 MARK E Primary MARK E [place] [id number] E Insurance:MEDICARE HORNERDOB: [facility] PART A [facility] [id number] Behavioral Health Services [address]Flm: Number: Repository [id number] (HP) Date:2017-11-25 06/16/2018 Secondary MARK E [place] Insurance:MEDICAIDPol [facility] ic Number: [id number] Hospital [id number] Repository Date:2017-11-25 06/16/2018 Tertiary NOT GIVENUNK [place] Insurance:SELF PAY [facility] Number: Effective Repository Date:2018-06-16 06/14/2018 MARK E Primary MARK E [place] [id number] E Insurance:MEDICARE HORNERDOB: [facility], PART A [facility] [id number] Behavioral Health Services [address]Zir: Number: Repository [id number] (HP) Date:2018-06-14 06/14/2018 Secondary MARK E [place] Insurance:MEDICAIDPol HORNERDOB: [facility] ic Number: [id number] Hospital [id number] Repository Date:2018-06-14 06/14/2018 Tertiary NOT GIVENUNK [place] Insurance:SELF PAY [facility] Number: Effective Repository Date:2018-06-14 12/30/2017 MARK E Primary MARK E [place] [id number] E Insurance:MEDICARE HORNERDOB: [facility], PART A [facility] [id number] Behavioral Health Services [address]Rkz: Number: Repository [id number] (HP) Date:2017-12-30 12/30/2017 Secondary MARK E [place] Insurance:MEDICAIDPol HORNERDOB: [facility] icy Number: [id number] Hospital [id number] Repository Date:2017-12-30 12/30/2017 Tertiary NOT GIVENUNK [place] Insurance:SELF PAY [facility] Number: Effective Repository Date:2017-12-30 12/20/2017 MARK E Primary MARK E [place] [id number] E Insurance:MEDICARE HORNERDOB: [facility], PART A [facility] [id number] [place] [address]Pyl: Number: Repository [id number] (HP) Date:2017-12-20 12/20/2017 Secondary MARK E [place] Insurance:MEDICAIDPol HORNERDOB: [facility] ic Number: [id number] Hospital [id number] Repository Date:2017-12-20 12/20/2017 Tertiary NOT GIVENUNK [place] Insurance:SELF PAY [facility] Number: Effective Repository Date:2017-12-20 12/20/2017 MARK E Primary MARK E [place] [id number] E Insurance:MEDICARE HORNERDOB: [facility], PART A [facility] [id number] [facility] [place] [address]Xks: Number: Repository [id number] (HP) Date:2017-12-20 12/20/2017 Secondary MARK E [place] Insurance:MEDICAIDPol HORNERDOB: [facility] ic Number: [id number] Hospital [id number] Repository Date:2017-12-20 12/20/2017 Tertiary NOT GIVENUNK [place] Insurance:SELF PAY [facility] Number: Effective Repository Date:2017-12-20 12/20/2017 MARK E Primary MARK E [place] [id number] E Insurance:MEDICARE HORNERDOB: [facility], PART A [facility] [id number] [place] [address]Pmo: Number: Repository [id number] (HP) Date:2017-12-20 12/20/2017 Secondary MARK E Joseph Insurance:MEDICAIDPol HORNERDOB: [facility] ic Number: [id number] [id number] Repository Date:2017-12-20 12/20/2017 Tertiary NOT GIVENUNK [place] Insurance:SELF PAY [facility] Number: Effective Repository Date:2017-12-20 12/20/2017 MARK E Primary MARK E Joseph [id number] Insurance:MEDICARE HORNERDOB: [facility] PART A [facility] [id number] [address]Qqr: Number: Repository [id number] (HP) Date:2017-12-20 12/20/2017 Secondary MARK E [place] Insurance:MEDICAIDPol [facility] ic Number: [id number] [facility] [id number] Repository Date:2017-12-20 12/20/2017 Tertiary NOT GIVENUNK [place] Insurance:SELF PAY [facility] Number: Effective Repository Date:2017-12-20 12/20/2017 MARK E Primary MARK E Joseph [id number] Insurance:MEDICARE HORNERDOB: [facility] PART A [facility] [id number] [place] [address]Krz: Number: Repository [id number] (HP) Date:2017-12-20 12/20/2017 Secondary MARK E [place] Insurance:MEDICAIDPol [facility] Number: [id number] [id number] Repository Date:2017-12-20 12/20/2017 Tertiary NOT GIVENUNK [place] Insurance:SELF PAY [facility] Number: Effective Repository Date:2017-12-20 12/20/2017 MARK E Primary MARK E Joseph [id number] Insurance:MEDICARE HORNERDOB: [facility] PART A [facility] [id number] Behavioral Health Services [address]Nsv: Number: Repository [id number] (HP) Date:2017-12-20 12/20/2017 Secondary MARK E [place] Insurance:MEDICAIDPol [facility] ic Number: [id number] [id number] Repository Date:2017-12-20 12/20/2017 Tertiary NOT GIVENUNK [place] Insurance:SELF PAY [facility] Number: Effective Repository Date:2017-12-20 12/20/2017 MARK E Primary MARK E [place] [id number] Insurance:MEDICARE HORNERDOB: [facility] PART A [facility] [id number] Behavioral Health Services [address]Tsj: Number: Repository [id number] (HP) Date:2017-12-20 12/20/2017 Secondary MARK E Joseph Insurance:MEDICAIDPol HORNERDOB: [facility] ic Number: [id number] [facility] [id number] Repository Date:2017-12-20 12/20/2017 Tertiary NOT GIVENUNK [place] Insurance:SELF PAY [facility] Number: Effective Repository Date:2017-12-20 12/10/2017 MARK E Primary MARK E Joseph [id number] Insurance:MEDICARE HORNERDOB: [facility] PART A [facility] [id number] Behavioral Health Services [id number]: Number: Repository [id number] (HP) Date:2017-12-10 12/10/2017 Secondary MARK E [place] Insurance:MEDICAIDPol HORNERDOB: [facility] ic Number: [id number] [facility] [id number] Repository Date:2017-12-10 12/10/2017 Tertiary NOT GIVENUNK [place] Insurance:SELF PAY [facility] Number: Effective Repository Date:2017-12-10 11/25/2017 MARK E Primary MARK E [place] [id number] Insurance:MEDICARE HORNERDOB: [facility] PART A [facility] [id number], Number: [place]ository [place] [id number]: [id number] Date:2017-09-28 () 11/25/2017 Secondary MARK E [place] Insurance:MEDICAIDPol HORNERDOB: [facility] ic Number: [id number] [facility] [id number] Repository Date:2017-09-28 11/25/2017 Tertiary NOT GIVENUNK [place] Insurance:SELF PAY [facility] Number: Effective Repository Date:2017-09-28 11/25/2017 Mark E Primary Mark E [place] [id number] Insurance:MEDICAIDPol HornerDOB: [facility] icy Number: [id number], [id number] Repository [place] [address]Njq: Date:2017-11-25 () 11/25/2017 Secondary Mark E Joseph Insurance:MEDICARE HornerDOB: Community PART A [facility] [id number] [facility] Number: Repository [id number] Date:2017-11-25 11/25/2017 Tertiary NOT GIVENUNK [place] Insurance:SELF PAY [facility] Number: Effective Repository Date:2017-11-25 11/25/2017 Mark E Primary Mark E Joseph [id number] [facility] Insurance:MEDICAIDPol [facility] Number: [id number] Community Hospital, [id number] Repository [place] [address]Clo: Date:2017-11-25 () 11/25/2017 Secondary Mark E [place] Insurance:MEDICARE HornerDOB: Community PART A [facility] [id number] Hospital Number: Repository [id number] Date:2017-11-25 11/25/2017 Tertiary NOT GIVENUNK [place] Insurance:SELF PAY [facility] Number: Effective Repository Date:2017-11-25
== END ==
PROVIDERS: Family Provider Family Medicine Geriatric Medicine; PCP Family Medicine Geriatric Medicine; Referring Provider Family Medicine Geriatric Medicine; Visit Provider Family Medicine Geriatric Medicine
DX: R06.02 Shortness of breath (principal)
CPT/HCPCS: 93306

== ENCOUNTER → 2018-11-16 10:24 | Outpatient (CLI) | payer MEDICARE, MEDICAID, SELFPAY ==
[2018-10-26 01:06] VITALS: BMI 15.0
[2018-11-16 12:53] LABS: Anion Gap 6 (5-15); BUN 39 mg/dL (7-18); BUN/Creat Ratio 23.1 RATIO (10-20); Calcium,Total 8.8 mg/dL (8.5-10.1); Chloride 95 mmol/L (98-107); Creatinine, Serum 1.69 mg/dL (0.70-1.30); EST Glomerular Filtration Rate 43 mL/min (>60); Est Glom Filt Rate - Afr Amer 52 mL/min (>60); Glucose 120 mg/dL (74-106); Potassium 4.2 mmol/L (3.5-5.1); Sodium Level 143 mmol/L (136-145)
[2018-11-16 12:56] LABS: Absolute Lymphocyte Count 0.28 X10^3/ul (0.83-4.51); Absolute Neutrophil Count 6.2 X10^3/uL (2.0-7.7); Eosinophil# 0.02 X10^3/uL; Eosinophils% 0.3 % (0-5); Hematocrit 39.2 % (40-54); Hemoglobin 11.7 g/dl (13.0-16.5); Lymphocyte # 0.28 X10^3/ul (4.0); Lymphocyte % 4.2 % (19-41); Mean Corp Hgb Conc 29.8 g/gl (32-36); Mean Corpuscular Hgb 28.5 pg (27.0-32.0); Mean Corpuscular Volume 95.6 fL (80-94); Mean Platelet Vol. 10.7 fl (6.2-12.0); Neutrophil # 6.15 X10^3/uL (2.7-7.7); Neutrophil % 92.3 % (47-70); Platelet Count 140 K/mm3 (150-450); RBC Distribution Width CV 14.2 % (11.6-14.6); RBC Distribution Width SD 47.7 fl (35.1-43.9); White Blood Count 6.7 K/mm3 (4.4-11.0)
[2018-11-16 12:58] LABS: POSITIVE COUNT NO; POSITIVE DIFFERENTIAL YES; POSITIVE MORPHOLOGY NO
[2018-11-16 12:59] LABS: Differential Indicated SCAN CRITERIA MET
--- OUTSIDE RECORDS SUMMARY | 2019-01-18 07:43 | XMS RPT_ITS ---
:1950 Author Organization OHIP Support Name Relationship Address Phone R Unavailable Unavailable Unavailable DAKOTA DELEON Unavailable [address] + [place] [address] R Unavailable Unavailable Unavailable DAKOTA DELEON Unavailable [address] + [place] [address] R Unavailable Unavailable Unavailable DAKOTA DELEON Unavailable [address] + [place] [address] R Unavailable Unavailable Unavailable DAKOTA DELEON Unavailable [address] + [place] [address] R Unavailable Unavailable Unavailable DAKOTA DELEON Unavailable [address] + [place] [address] R Unavailable Unavailable Unavailable DAKOTA DELEON Unavailable [address] + [place] [address] R Unavailable Unavailable Unavailable DAKOTA DELEON Unavailable [address] + [place] [address] R Unavailable Unavailable Unavailable DAKOTA DELEON Unavailable [address] + [place] [address] R Unavailable Unavailable Unavailable DAKOTA DELEON Unavailable [address] + [place] [address] R Unavailable Unavailable Unavailable DAKOTA DELEON Unavailable [address] + [place] [address] R Unavailable Unavailable Unavailable DAKOTA DELEON Unavailable [address] + [place] [address] R Unavailable Unavailable Unavailable DAKOTA DELEON Unavailable Unavailable + R Unavailable Unavailable Unavailable DAKOTA DELEON Unavailable Unavailable + R Unavailable Unavailable Unavailable R Unavailable Unavailable Unavailable R Unavailable Unavailable Unavailable R Unavailable Unavailable Unavailable R Unavailable Unavailable Unavailable HEIKE OCHOA Unavailable [address] + [place] [address] R Unavailable Unavailable Unavailable OCHOA, HEIKE Unavailable [address] + [place] [address] R Unavailable Unavailable Unavailable OCHOA, HEIKE Unavailable [address] + [place] [address] R Unavailable Unavailable Unavailable OCHOA, HEIKE Unavailable [address] + [place] [address] R Unavailable Unavailable Unavailable OCHOA, HEIKE Unavailable [address] + [place] [address] R Unavailable Unavailable Unavailable OCHOA, HEIKE Unavailable [address] + [place] [address] R Unavailable Unavailable Unavailable OCHOA, HEIKE Unavailable [address] + [place] [address] R Unavailable Unavailable Unavailable OCHOA, HEIKE Unavailable [address] + [place] [address] R Unavailable Unavailable Unavailable OCHOATAMMIEN Unavailable [address] + [place] [address] R Unavailable Unavailable Unavailable OCHOATAMMIEN Unavailable [address] + [place] [address] R Unavailable Unavailable Unavailable OCHOATAMMIEN Unavailable [address] + [place] [address] R Unavailable Unavailable Unavailable OCHOATAMMIEN Unavailable [address] + [place] [address] R Unavailable Unavailable Unavailable R Unavailable Unavailable Unavailable BAXTON, MARCIO Unavailable [address] [facility] + [place] [address] [address] + [place] [address] R Unavailable Unavailable Unavailable BAXTON, MARCIO Unavailable [address] [facility] + [place] [address] OCHOA, HEIKE Unavailable [address] + [place] [address] R Unavailable Unavailable Unavailable Care Team Providers Name Role Phone Jeaneth SANTOS Admitting Unavailable IMCA Primary Care Unavailable Jeaneth REYES Attending Unavailable Jeaneth LEE Consulting Unavailable Jeaneth CUMMINGS Consulting Unavailable JEFRY, CHRISTOPH Consulting Unavailable DALIA SANTOS Admitting Unavailable AMY CORRALES Attending Unavailable JEFRY, CHRISTOPH Consulting Unavailable EVELYN GILLESPIE (YONATAN) Attending Unavailable JACQUI CADET Referring Unavailable Marjorie Cárdenas Attending Unavailable Kemar Mckeon [...] Primary Care Unavailable Chrissy, Kam Consulting Unavailable Natasha Juniora Attending Unavailable Chrissy, Kam Admitting Unavailable Jose [...] Consulting Unavailable Dalia Roberson Consulting Unavailable Chrissy, Akm Admitting Unavailable Dalia Roberson Attending Unavailable Marcos, [...] Primary Care Unavailable Salas Ocampo Attending Unavailable Frey, Delma Referring Unavailable Marcos, Jalen Chi Primary Care Unavailable Agyepong, Dakota Admitting Unavailable Sementi, Yelena Attending Unavailable Anh, Kay Consulting Unavailable Bakhous, Aziz Consulting Unavailable Agyepong, Dakota Admitting Unavailable AgyepongDakota Attending Unavailable Marcos, Jalen Chi Primary Care [...] Yelena Consulting Unavailable Agyepong, Dakota Admitting Unavailable DanielKenneth nelson Attending Unavailable Marcos, Jalen Chi Primary Care Unavailable Anh, Kay Consulting Unavailable Bakhous, Aziz Consulting Unavailable Sementi, Yelena Consulting Unavailable Marcos, Jalen Chi Attending Unavailable Marcos, Jalen Chi Referring Unavailable Marcos, Jalen Chi Primary Care Unavailable Marcos, Jalen Chi Attending Unavailable Marcos, Jalen Chi Referring Unavailable Marcos, Jalen Chi Primary Care Unavailable MoodYemi cloud Attending Unavailable Prah, Dakota Referring Unavailable Marcos, Jalen Chi Attending Unavailable Marcos, Jalen Chi Primary Care Unavailable PROBLEMS PROBLEMS DATE TYPE CONDITION / CODE ATTENDING STATUS SOURCE Unknown J96.01 - Acute Kenneth Sanchez Active [place] 9 respiratory failure Community with hypoxia / Hospital J96.01(ICD-10) Repository Unknown R94.31 - Abnormal [place], Active [facility] 9 electrocardiogram [facility] [ECG] [EKG] / Hospital R94.31(ICD-10) Repository Unknown J44.9 - Chronic Salas Ocampo Active [facility] 8 obstructive pulmonary Community disease, unspecified / Hospital J44.9(ICD-10) Repository Admitting Unknown / UNK(Unknown) Cory REYES. Active [facility] 8 diagnosis [facility] Repository Active Vomiting, unspecified AMY CORRALES Active [facility] [facility] / R11.10(ICD-10) Clinic Other [facility] Repository Unknown I10 - Essential Marcos, Jalen Chi Active [facility] 8 (primary) hypertension Community / I10(ICD-10) Hospital Repository Unknown E11.9 - Type 2 Marcos, Jalen Chi Active [facility] 8 diabetes mellitus Community without complications Hospital / E11.9(ICD-10) Repository Unknown E55.9 - Vitamin D Marcos, Jalen Chi Active [facility] 8 deficiency, Community unspecified / Hospital E55.9(ICD-10) Repository Unknown Z23 - Encounter for Tk Active [facility] 8 immunization / [facility] Z23(ICD-10) Hospital Repository Unknown J43.1 - Panlobular Tk, Active [facility] emphysema / [facility] J43.1(ICD-10) Hospital Repository Unknown I25.10 - Aj Jim[facility] Active [facility] 8 Atherosclerotic heart Community disease of [facility] coronary artery Repository without angina pectoris / I25.10(ICD-10) Unknown N18.4 - Chronic kidney Aj Jimenez Active [facility] 8 disease, stage 4 Community (severe) / Hospital N18.4(ICD-10) Repository Unknown J44.1 - Chronic Aj Jimenez Active [facility] 8 obstructive pulmonary Community disease with (acute) Hospital exacerbation / Repository J44.1(ICD-10) Unknown 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 [place], [place], [address] CBC W/DIFF, AUTOMATED Collected: 11/16/2018 Status: F Source: [place] 10:27 AM [facility] REPOSITORY TYPE CODE TESTS RESULT OUT OF [...] LYMPHOPENIA NOTED. Performed By: #### L100.0100 #### [facility] [address] [facility] [place], [address] ECHOCARDIOGRAM COMPLETE Observed: 11/16/2018 Status: F Source: [place] 9:21 AM [facility] REPOSITORY [facility] Cardiovascular Services [address] [place] [address] Echo Complete 11/15/18 1358 MR#: [id number] Acct: [id number] Name: MARK SERRANO Rep #: [id number] : 1950 68 From: Aj Jimenez MD Attending Dr: Marcos ABRAHAM,Jalen Mary Status: REG CLI Ordering Dr: Jalen Rodríguez MD Date: 11/15/18 Location: [facility] Sex: M C Admitted: Reason [...] 11/16/18919 Date Aj Jimenez MD CC: Jalen Rodírguez MD Date Dictated: 11/15/18 1358 Date Transcribed: 11/16/18919 Side Panel Hanger: Signed PROGRESS Observed: 11/14/2018 Status: COMPLETED Source: [place] 8:15 PM [facility] REPOSITORY [facility] ID: [id number] Author: Evelyn Gillespie (Pa) Service: (none) Author Type: Physician Consulting Psychologist Type: Progress Notes Filed: 11/14/2018 8:28 PM Note Text: FOLLOW UP VISIT - ENDOSCOPY NAME: Mark Serrano [facility] NO.: [id number] DATE OF SERVICE: 11/11/2018 : 1950 REFERRING PHYSICIAN: Jacqui Cadet MD Mark is a patient I am following with Dr. Kamara. Patient recently presented to [facility] and was admitted with complaints of [...] with more than 50% of the total kdxy-ur-xwfy time of the visit in counseling / coordination of care. CECI Slaughter Observed: 11/11/2018 Status: COMPLETED Source: [place] 9:30 AM [facility] REPOSITORY Office Visit (GENSWS) MARK SERRANO ([id number]) 1950 M Date Time Provider Department 1/18/19 [...] to your office visit today with the [facility] General Surgeons. INSTRUCTIONS FOR PEPTIC [...] you should contact our office immediately @ [phone] and ask to be transferred to the General Surgery department. Evelyn Gillespie PA-C 11/14/2018 8:28 PM Signed FOLLOW UP VISIT - ENDOSCOPY NAME: Mark Birdie [facility] NO.: [id number] DATE OF SERVICE: 11/11/2018 : 1950 REFERRING PHYSICIAN: Jacqui Cadet MD Mark is a patient I am following with Dr. Kamara. Patient recently presented to [facility] and was admitted with complaints of [...] with more than 50% of the total hpag-ck-tanp time of the visit in counseling / coordination of care. Evelyn Gillespie PA-C Referring Provider: JACQUI CADET [[id number]] Allergies As of Date: 11/11/2018 Noted Allergy [...] to your office visit today with the [facility] General Surgeons. INSTRUCTIONS FOR PEPTIC [...] you should contact our office immediately @ [phone] and ask to be transferred to the General Surgery department. Follow-up and Disposition History Recorded Encounter Status:Closed by EVELYN GILLESPIE PA-C on 11/14/18 CBC W/DIFF, AUTOMATED Collected: 11/09/2018 Status: F Source: [place] 5:34 PM [facility] REPOSITORY TYPE CODE TESTS RESULT OUT OF [...] Lymph 0.91 Performed By: #### L100.0100 #### [facility] [address] [place], [address] BASIC METABOLIC Collected: 11/09/2018 Status: F Source: [place] PROFILE ([facility]) 5:34 PM [facility] REPOSITORY TYPE CODE TESTS RESULT OUT OF [...] GAP 5 Performed By: #### L500.2500 #### [facility] [address] [place], [address] [facility] Observed: 11/03/2018 Status: COMPLETED Source: [place] 12:00 AM [facility] REPOSITORY Telephone (NetotiateSWS) MARK SERRANO ([id number]) 1950 M Date Time Provider Department 11/03/18 KAY KAMARA [employer] During your visit today, we recorded the following information about you: Ian Shafer LPN 11/03/2018 8:28 AM Signed Please contact patient for post op [facility] with Amanda. Joan Orozco 11/03/2018 9:05 AM [...] DISCHARGE SUMMARY Observed: 10/30/2018 Status: F Source: [place] 2:40 PM [facility] REPOSITORY [facility] Medical Records Department [address] [facility] [place] [address] Discharge Summary 10/30/18 1417 MR#: [id number] Acct: [id number] Name: MARK SERRANO Rep #: [id number] : 1950 68 From: Es Valdez DO PCP: Marcos ABRAHAM,Jalen Chi Status: ADM IN Location: [place] [address] Discharge Date and Diagnosis - Problem List [...] 1+ regurg per echo 01/21/2015 done @ [facility] Atherosclerosis of coronary artery of [place] heart without angina pectoris (Chronic) 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 Nicotine abuse (Chronic) - resolved....quit smoking Hypertension (Chronic) CKD (chronic kidney disease) stage 4, GFR 15-29 ml/min (Chronic) Following with Dr. Chapman [facility] Course and Treatment Imaging Results: Clinical Impression(s) from Imaging Studies Chest X-Ray 10/25/18 20:17 IMPRESSION: No acute cardiopulmonary abnormalities. Stable COPD with mild fibrosis. Electronically Signed: Taryn Cummins MD at 21:59 EST Tel Direct: [phone], Service support , Abdomen/Pelvis CT 10/27/18 05:37 [...] Ned Denny MD at 12:43 EST Tel [phone], Service support , KUB X-Ray 10/29/18 18:35 IMPRESSION: 1. Removal of enteric tube. No dilated loops of small bowel. Colonic gas confirmed. Electronically Signed: Geovanny Crockett MD at 18:59 EST , Service support , Dr. Kay Kamara-[facility] general surgery Dr. Webber and Dr. Velasquez-[place] [facility] Operations: None Procedures: EGD - Gastritis [...] who presented to the emergency department at [facility] on 10/25/2018 complaining of increasing shortness of [...] protein intact. He was seen by the web services architect prior to discharge and educated on a [...] no cyanosis This note was generated with [employer] dictation software. It may contain incorrect words, [...] [Prinivil] 5 mg PO QDAY 10/26/18 Tiotropium Premium [Spiriva 18 MCG] 1 cap INHALATION DAILY [...] applicable Code Visit Inpatient E AND M: 01327 Disch Hosp 10/30/18 1440 <Electronically signed by Es Valdez DO> Date Es Valdez DO Cosigner Signature (if applicable): Date CC: Yelena Valdez; Yoan Ochoa MD; Kay Kamara MD; Jalen Rodríguez MD Signed DISCHARGE INSTRUCTION Observed: 10/30/2018 Status: F Source: [place] 2:17 PM [facility] REPOSITORY [facility] Medical Records Department [address] [place] [address] [place] [address] Instructions for Home/Discharge Instructions 10/30/18 1402 MR#: [id number] Acct: [id number] Name: MARK SERRANO Rep #: [id number] : 1950 68 From: Es Valdez DO [...] [Prinivil] 5 mg PO QDAY 10/26/18 Tiotropium Premium [Spiriva 18 MCG] 1 cap INHALATION DAILY [...] Signed PROGRESS Observed: 10/30/2018 Status: COMPLETED Source: [place] 1:04 PM [facility] [place] REPOSITORY [facility] ID: [id number] Author: Kay Kamara Service: (none) Author Type: Physician Type: Progress Notes Filed: 10/30/2018 1:09 PM Note Text: OPERATIVE NOTATION FOR [facility] SURGICAL PROCEDURE. October 28, 2018 Mark Gutierreser 1950 [id number] male PROCEDURE: EGD WITH BIOPSY - 95130-918 SURGEON: Alva Kamara M.D. FACS MEDICAL RECORD LIBRARIANS TEACHER: None DEPT: WLucho PROVIDER: [id number] Kamara MD POS: [id number] DIAGNOSIS: (R11.11) Vomiting without nausea, intractability of [...] Clean Contaminated Operative note dictated in the [facility] dictation system. Kay Kamara MD CBC-COMPLETE BLOOD CNT Collected: 10/30/2018 Status: F Source: [place] NO DIFF 6:15 AM [facility] REPOSITORY TYPE CODE TESTS RESULT OUT OF [...] MPV 9.6 Performed By: #### L100.0500 #### [facility] [address] [place], [address] BASIC METABOLIC Collected: 10/30/2018 Status: F Source: [place] PROFILE (BMP) 6:15 AM [facility] REPOSITORY TYPE CODE TESTS RESULT OUT OF [...] GAP 7 Performed By: #### L500.2500 #### [facility] [address] [facility] [place], [place], [address] ABDOMEN SINGLE VIEW Observed: 10/29/2018 Status: F Source: [place] 6:19 PM [facility] REPOSITORY [facility] Imaging Services [address] [place] [address] Abdomen Single View MR#: [id number] Acct: [id number] Name: MARK SERRANO Rep #: [id number] : 1950 M 68 From: Geovanny Crockett MD PCP: Marcos ABRAHAM,Jalen Chi Status: ADM IN Study: Abdomen Single View Date of Exam: 10/29/18 Exam# [id number] Ordering Dr: Es Valdez DO STUDY: X-RAY [...] , CC: Yelena Valdez; Jalen Rodríguez MD Side Panel Hanger: Signed CBC-COMPLETE BLOOD CNT Collected: 10/29/2018 Status: F Source: [place] NO DIFF 6:57 AM [facility] REPOSITORY TYPE CODE TESTS RESULT OUT OF [...] MPV 9.6 Performed By: #### L100.0500 #### [facility] [address] [place], [address] BASIC METABOLIC Collected: 10/29/2018 Status: F Source: [place] PROFILE (BMP) 6:57 AM [facility] REPOSITORY TYPE CODE TESTS RESULT OUT OF [...] GAP 6 Performed By: #### L500.2500 #### [facility] [address] [facility] [place], [address] 12 LEAD ELECTROCARDIOGRAM Observed: 10/28/2018 Status: F Source: [place] 2:42 PM [facility] REPOSITORY [facility] Cardiovascular Services [address] [place] [address] 12 Lead EKG 10/27/18 0000 MR#: [id number] Acct: [id number] Name: MARK SERRANO Rep #: [id number] : 1950 68 From: Yemi Leal MD [...] Abnormal ECG Confirmed by STEVE ABRAHAM, YEMI ([id number]), online content editor CRISTO SANTOS ([id number]) on 10/28/2018 2:42:32 PM Referred By: DR DUNCAN Confirmed By:YEMI LEAL MD 10/28/18 1442 Date Yemi Leal MD CC: Yelena Valdez; Dakota Gonzales MD; Jalen Rodríguez MD Signed OPERATIVE REPORT - Observed: 10/28/2018 Status: F Source: [place] ENDOSCOPY 11:55 AM [facility] REPOSITORY [facility] Medical Records Department [address] [place] [address] Operative Report - Endoscopy MR#: [id number] Acct: [id number] Name: MARK SERRANO Rep #: [id number] : 1950 68 From: Kay Kamara MD [...] by the physician, the nurse and the log stacker operator in the procedure room. Mental Status Examination: [...] present medications. Procedure Code(s): --- Professional --- 42796, Esophagogastroduodenoscopy, flexible, transoral; with biopsy, single or multiple CPT copyright 2017 [employer]. All rights reserved. The codes documented in this report are preliminary and upon community relations advisor review may be revised to meet current compliance requirements. Kay Kamara MD 10/28/2018 11:55:22 AM This report has been signed electronically. Number of Addenda: 0 Note Initiated On: 10/28/2018 10:29 AM 10/28/18 1155 Date Kay Kamara MD Cosigner Signature: Date (if indicated) CC: Lindsey Velasquez MD; Yelena Valdez; Kay Kamara MD; Jalen Rodríguez MD Date Dictated: 10/28/18 1029 Date Transcribed: Side Panel Hanger: HILL Signed IMMUNOHISTOCHEMISTRY Observed: 10/28/2018 Status: F Source: [place] 11:00 AM [facility] REPOSITORY Patient: MARK SERRANO : 1950 (68/M) Acct Num: [id number] Phys: Yelena Valdez Unit Num: [id number] Loc: U [id number] Specimen: [id number] Received: 10/28/18 - 1316 Spec Type: IMMUNO TISSUES 1 TISSUES: B. Stomach, NOS SPECIMEN INFORMATION: Tissue Source: B - Antral biopsy Clinical Info: Nausea and vomiting Specimen Number: [id number] CPT code: 17016 METHODOLOGY: Deparaffinized sections of prefer/formalin-fixed tissue or [...] developed and their performance characteristics determined by [facility]. They may not have been cleared or approved by the U.S. Food and Drug Administration. The FDA has determined that such clearance or approval is not necessary. INTERPRETATION: B. Antral biopsy: Negative for Helicobacter pylori organisms. AM:hill 10/31/18 PHYSICIAN AND INSTITUTION [address] [address] Signed Alvaro Anguiano DO 10/31/18 <signature on file> Performed By: #### PIMM #### [facility] [address] [place] [address], [address] CBC-COMPLETE BLOOD CNT Collected: 10/28/2018 Status: F Source: [place] NO DIFF 6:40 AM [facility] REPOSITORY TYPE CODE TESTS RESULT OUT OF [...] MPV 9.6 Performed By: #### L100.0500 #### [facility] [address] [facility] [place], [place], [address] BASIC METABOLIC Collected: 10/28/2018 Status: F Source: [place] PROFILE (BMP) 6:40 AM [facility] REPOSITORY TYPE CODE TESTS RESULT OUT OF [...] Performed By: #### L500.2500, L501.2300, L501.5200 #### [facility] [address] [place], [place], [address] PHOSPHORUS Collected: 10/28/2018 Status: F Source: [place] 6:40 AM [facility] REPOSITORY TYPE CODE TESTS RESULT OUT OF RANGE REFERENCE UNITS LAB L501.2300 2.5-4.9 mg/dL High PHOS 5.0 Performed By: #### L500.2500, L501.2300, L501.5200 #### [facility] [address] [place], [address] MAGNESIUM Collected: 10/28/2018 Status: F Source: [place] 6:40 AM [facility] REPOSITORY TYPE CODE TESTS RESULT OUT OF RANGE REFERENCE UNITS LAB L501.5200 1.6-2.6 mg/dL Normal MG 1.9 Performed By: #### L500.2500, L501.2300, L501.5200 #### [facility] [address] [place], [place], [address] CNOP Observed: 10/28/2018 Status: COMPLETED Source: [place] 12:00 AM [facility] REPOSITORY Operative Note (Enc) (GENSWS) Progress Notes: Kay Kamara MD 10/30/2018 1:09 PM Signed OPERATIVE NOTATION FOR [facility] SURGICAL PROCEDURE. October 28, 2018 Mark Serrano 1950 [id number] male PROCEDURE: EGD WITH BIOPSY - 36600-998 SURGEON: Alva Kamara M.D. FACS MEDICAL RECORD LIBRARIANS TEACHER: None DEPT: PROVIDER: [id number] Kamara MD POS: [id number] DIAGNOSIS: (R11.11) Vomiting without nausea, intractability of [...] Clean Contaminated Operative note dictated in the [facility] dictation system. Kay Kamara MD Encounter Status:Closed by KAY KAMARA MD on 10/30/18 EGD ([facility]) Observed: 10/28/2018 Status: F Source: [place] 12:00 AM [facility] Patient: MARK SERRANO : 1950 (68/M) Acct Num: [id number] Phys: Yelena Valdez Unit Num: [id number] Loc: U [id number] Specimen: [id number] Received: 10/28/18 - 1314 Spec [...] one cassette. / SJ:hill 10/28/18 TC:2 CPT: 63907 x3, 77788 HEADER OPERATION: EGD ([facility]) PRE-OP DIAGNOSIS: Nausea and vomiting, possible duodenal [...] for fungal organisms. AM:hill 10/31/18 Signed Alvaro Anguiano, 10/31/18 <signature on file> Performed By: #### PEGD #### [facility] [address] [place], [place], [address] HH, HEMOGLOBIN AND Collected: 10/27/2018 Status: F Source: [place] HEMATOCRIT 9:03 PM [facility] REPOSITORY TYPE CODE TESTS RESULT OUT OF RANGE REFERENCE UNITS LAB L100.1300 13.0-16.5 g/dl Low HGB 10.0 LAB L100.1400 40-54 % Low HCT 32.8 Performed By: #### L100.0600 #### [facility] [address] [place], [address] CONSULTATION Observed: 10/27/2018 Status: F Source: [place] 6:13 PM [facility] REPOSITORY [facility] Medical Records Department [address] [place] [address] Consultation 10/27/18 1157 MR#: [id number] Acct: [id number] Name: MARK SERRANO Rep #: [id number] : 1950 68 From: Kay Kamara MD PCP: Jalen Rodríguez MD, Chi Status: ADM IN Y Location: [address] Reason for Consult Date of Consultation: [...] vomiting for which he was admitted to [facility] from 07/06/18 to 07/13/18. Discharge summary from [facility] revealed: Mr. Serrano was admitted with [...] GI as outpatient. Upper GI report from [facility] on July 07, 2018 demonstrated the following findings: FINDINGS: Initial electric power line examiner film demonstrates a nonspecific bowel gas pattern. [...] DIAGNOSIS: See below SURGEON: Geovanny Sanders MD MEDICAL RECORD LIBRARIANS TEACHER: Mino Petersen. SURGERY/PROCEDURE: Esophagogastroduodenoscopy with biopsies. ANESTHESIA: Monitored Anesthesia Care LOG ID: [id number]. PREOPERATIVE DIAGNOSES: 1. Nausea and vomiting. 2. [...] condition. Pathology from his upper endoscopy at [facility] on July 11, 2018 demonstrated mild gastritis [...] was performed. He recalls it happened in [place]. Patient underwent upper endoscopy Dr. David Price [...] 1+ regurg per echo 01/21/2015 done @ [facility] Atherosclerosis of coronary artery of [place] heart without angina pectoris (Chronic) Nonobstructive CAD [...] 1+ regurg per echo 01/21/2015 done @ [facility] Atherosclerosis of coronary artery of [place] heart without angina pectoris (Chronic) I25.10 Nonobstructive [...] gastric and duodenal distention-recently worked up in [place] felt to not truly be gastric outlet [...] He recalls he underwent surgery likely in [place] with a small bowel resection he states [...] require repeat upper endoscopy to assess for Justine-Hamlni tear versus peptic ulcer disease. Recent endoscopy in [place] demonstrated mild gastritis was H. pylori negative. [...] HEMOGLOBIN AND Collected: 10/27/2018 Status: F Source: [place] HEMATOCRIT 2:42 PM [facility] REPOSITORY TYPE CODE TESTS RESULT OUT OF RANGE REFERENCE UNITS LAB L100.1300 13.0-16.5 g/dl Low HGB 10.6 LAB L100.1400 40-54 % Low HCT 34.2 Performed By: #### L100.0600 #### [facility] [address] [facility] [place], [address] 12 LEAD ELECTROCARDIOGRAM Observed: 10/27/2018 Status: F Source: [place] 2:00 PM [facility] REPOSITORY [facility] Cardiovascular Services [address] [place] [address] 12 Lead EKG 10/25/182014 MR#: [id number] Acct: [id number] Name: MARK SERRANO Rep #: [id number] : 1950 68 From: Yemi Leal MD Attending Dr: Yelena Valdez Status: ADM IN Ordering Dr: Janet Cotton MD Date: 10/25/18 Location: [facility] Sex: M C Admitted: 10/26/18 Test Reason [...] Abnormal ECG Confirmed by STEVE ABRAHAM, YEMI ([id number]), online content editor CRISTO SANTOS ([id number]) on 10/27/2018 1:59:58 PM Referred By: ACACIA Confirmed By:YEMI LEAL MD 10/27/18 1400 Date Yemi Leal MD CC: Janet Cotton MD; Yelena Valdez; Jalen Rodríguez MD Signed URINALYSIS, COMPLETE Collected: 10/27/2018 Status: F Source: [place] 1:15 PM [facility] REPOSITORY Order Comment: How was Urine Obtained? CLOTH BURLER TO SPECIFY TYPE CODE TESTS RESULT OUT [...] URINE RARE Performed By: #### L400.0001 #### [facility] [address] [place], [address] CREATININE, URINE Collected: 10/27/2018 Status: F Source: [place] 1:15 PM [facility] REPOSITORY TYPE CODE TESTS RESULT OUT OF RANGE REFERENCE UNITS LAB L502.0300 NO RANGE EST. mg/dL Normal URINE 209.00 CREAT Performed By: #### L502.0300 #### [facility] [address] [place], [address] URINE SODIUM Collected: 10/27/2018 Status: F Source: [place] 1:15 PM [facility] REPOSITORY TYPE CODE TESTS RESULT OUT OF RANGE REFERENCE UNITS LAB L501.5500 Not Establ. mmol/L Normal UR NA 28 Performed By: #### L501.5500 #### [facility] [address] [place], [address] CONSULTATION Observed: 10/27/2018 Status: F Source: [place] 11:08 AM [facility] REPOSITORY [facility] Medical Records Department [address] [place] [address] Consultation 10/27/18 1053 MR#: [id number] Acct: [id number] Name: MARK SERRANO Rep #: [id number] : 1950 68 From: Lindsey Velasquez MD PCP: Marcos ABRAHAM,Jalen Mary Status: ADM IN Y Location: [place] [address] Problem List (1) Acute kidney injury superimposed on chronic kidney disease Status: Chronic (2) Hydronephrosis Status: Acute Consultation - Renal PCP/ Referring MD: Requesting physician: [] Primary care physician: Jalen Rodríguez MD - History of Present Illness History of Present Illness: The patient is a 68 year old M past medical history of Crohn's disease COPD, non-ST ND, hypertension, chronic kidney disease stage III/IV, history [...] seems around 1.8-2.0. Patient denies seen a orthotist in outpatient basis. Currently has NG tube. [...] (Duoneb) 3 ml INHALATION Q4H.RT [facility] Last Admin: 10/27/18 06:48 Dose: Not Given Atorvastatin Calcium (Lipitor) 20 mg PO QHS [facility] Last Admin: 10/26/18 22:35 Dose: 20 mg Clonidine (Catapres) 0.1 mg PO Q6H PRN PRN Reason: sbp > 160 Clonidine HCl (Catapres-Tts1) 0.1 mg TRANSDERM. Q7D [facility] Last Admin: 10/27/18 10:11 Dose: 0.1 mg Guaifenesin (Mucinex) 1,200 mg PO BID [facility] Last Admin: 10/27/18 08:05 Dose: Not Given Hydralazine HCl (Apresoline Iv) 10 mg IV Q6H PRN PRN PRN Reason: Systolic BP >160 Last Admin: 10/27/18 06:57 Dose: 10 mg Azithromycin 500 mg/ Dextrose 255 mls @ 250 mls/hr IV Q24 [facility] Stop: 10/28/18 11:02 Last Admin: 10/27/18 10:11 Dose: 250 mls/hr Sodium Chloride () 250 mls @ 15 mls/hr IV .[id number] PRN PRN Reason: SALINE FLUSH Sodium Chloride () 1,000 mls @ 75 mls/hr IV .[id number] [facility] Last Admin: 10/27/18 10:11 Dose: 75 mls/hr Pantoprazole Sodium 40 mg/ (Sodium Chloride) 110 mls @ 330 mls/hr IV Q12 [facility] Last Admin: 10/27/18 07:31 Dose: 330 mls/hr Labetalol HCl (Trandate) 10 mg IV Q4H PRN PRN PRN Reason: Systolic BP >160 Lisinopril (Zestril) 5 mg PO DAILY [facility] Last Admin: 10/27/18 08:05 Dose: Not Given Loperamide HCl (Imodium) 2 mg PO DAILY [facility] Last Admin: 10/27/18 08:05 Dose: Not Given Lorazepam (Ativan) 1 mg IV Q8 PRN PRN Reason: ANXIETY Last Admin: 10/27/18 00:23 Dose: 1 mg Magnesium Hydroxide (Milk Of Magnesia) 30 ml PO DAILY PRN PRN Reason: Constipation Mesalamine (Lialda) 2.4 gm PO DAILYCM [facility] Last Admin: 10/27/18 08:05 Dose: Not Given Methylprednisolone (Solu-Medrol) 40 mg IV Q8 [facility] Last Admin: 10/27/18 05:09 Dose: 40 mg Nutritional Formula (Lactose Free) (Ensure Enlive) 120 ml PO 4X/DAY [facility] Last Admin: 10/27/18 08:05 Dose: Not Given [...] 1+ regurg per echo 01/21/2015 done @ [facility] Atherosclerosis of coronary artery of [place] heart without angina pectoris (Chronic) Nonobstructive CAD [...] (Last Reviewed 10/26/18 @ 09:24 by Dakota Gonzaels MD) Father neg FH of ASCVD History [...] Status: F Source: [place] HEMATOCRIT 8:55 AM [facility] REPOSITORY TYPE CODE TESTS RESULT OUT OF RANGE REFERENCE UNITS LAB L100.1300 13.0-16.5 g/dl Low HGB 12.2 LAB L100.1400 40-54 % Low HCT 39.0 Performed By: #### L100.0600 #### [facility] [address] [place], [address] TYPE AND SCREEN Collected: 10/27/2018 Status: F Source: [place] 8:55 AM [facility] REPOSITORY Order Comment: Reason for Type AND Screen/Red Cells: HEMORRHAGE, GI BLEED TYPE CODE TESTS RESULT OUT OF RANGE REFERENCE UNITS LAB B10.0800 A Normal BLOOD TYPE GEL POSITIVE LAB B100.4000 Normal Antibody NEGATIVE Screen Performed By: #### B101.7450 #### [facility] [address] [place], [address] ABDOMEN/PEL W ORAL CONT Observed: 10/27/2018 Status: F Source: [place] ONLY 8:07 AM [facility] REPOSITORY [facility] Imaging Services [address] [place] [address] Abdomen/Pel W ORAL Cont Only MR#: [id number] Acct: [id number] Name: MARK SERRANO Rep #: [id number] : 1950 M 68 From: Ned Denny MD PCP: Marcos ABRAHAM,Jalen [place] Status: ADM IN Study: Abdomen/Pel W ORAL Cont Only Date of Exam: 10/27/18 Exam# [id number] Ordering Dr: Es Valdez DO STUDY: CT [...] Ned Denny MD at 12:43 EST Tel [phone], Service support , CC: Yelena Valdez; Jalen Rodríguez MD Side Panel Hanger: Signed CHEST 1 VIEW Observed: 10/27/2018 Status: F Source: [place] (PORTABLE) 7:57 AM [facility] REPOSITORY [facility] Imaging Services [address] [place] [address] Chest 1 View (Portable) MR#: [id number] Acct: [id number] Name: MARK SERRANO Rep #: [id number] : 1950 M 68 From: Shanna Aguillon MD PCP: Jalen Rodríguez MD, Chi Status: ADM IN Study: Chest 1 View (Portable) Date of Exam: 10/27/18 Exam# [id number] Ordering Dr: Es Valdez DO STUDY: X-RAY [...] , CC: Yelena Valdez; Jalen Rodríguez MD Side Panel Hanger: Signed ABDOMEN SINGLE VIEW Observed: 10/27/2018 Status: F Source: [place] 7:57 AM [facility] REPOSITORY [facility] Imaging Services [address] [place] [address] Abdomen Single View MR#: [id number] Acct: [id number] Name: MARK SERRANO Rep #: [id number] : 1950 M 68 From: Jason Rocha PCP: Jalen Rodríguez MD, Chi Status: ADM IN Study: Abdomen Single View Date of Exam: 10/27/18 Exam# [id number] Ordering Dr: Es Valdez DO STUDY: X-RAY [...] , CC: Yelena Valdez; Jalen Rodríguez MD Side Panel Hanger: Signed ABDOMEN SINGLE VIEW Observed: 10/27/2018 Status: F Source: [place] (PORTABLE) 7:52 AM [facility] REPOSITORY [facility] Imaging Services [facility] [place] [address] Abdomen Single View (Portable) MR#: [id number] Acct: [id number] Name: MARK SERRANO Rep #: [id number] : 1950 68 From: Jason Rocha PCP: Jalen Rodríguez MD, Chi Status: ADM IN Study: Abdomen Single View (Portable) Date of Exam: 10/27/18 Exam# [id number] Ordering Dr: Es Valdez DO STUDY: X-RAY [...] , CC: Yelena Valdez; Jalen Rodríguez MD Side Panel Hanger: Signed CBC W/DIFF, AUTOMATED Collected: 10/27/2018 Status: F Source: [place] 6:50 AM [facility] REPOSITORY TYPE CODE TESTS RESULT OUT OF [...] BANDS SEEN Performed By: #### L100.0100 #### [facility] [address] [place], [address] BASIC METABOLIC Collected: 10/27/2018 Status: F Source: [place] PROFILE (BMP) 6:50 AM [facility] REPOSITORY TYPE CODE TESTS RESULT OUT OF [...] GAP 8 Performed By: #### L500.2500 #### [facility] [address] [place], [place], [address] LIVER PROFILE Collected: 10/27/2018 Status: F Source: [place] 6:50 AM [facility] REPOSITORY TYPE CODE TESTS RESULT OUT OF [...] Performed By: #### L500.3400, L501.2300, L501.5200 #### [facility] [address] [place], [address] PHOSPHORUS Collected: 10/27/2018 Status: F Source: [place] 6:50 AM [facility] REPOSITORY TYPE CODE TESTS RESULT OUT OF RANGE REFERENCE UNITS LAB L501.2300 2.5-4.9 mg/dL Normal PHOS 4.1 Performed By: #### L500.3400, L501.2300, L501.5200 #### [facility] [address] [facility] [place], [address] MAGNESIUM Collected: 10/27/2018 Status: F Source: [place] 6:50 AM [facility] REPOSITORY TYPE CODE TESTS RESULT OUT OF RANGE REFERENCE UNITS LAB L501.5200 1.6-2.6 mg/dL Normal MG 1.8 Performed By: #### L500.3400, L501.2300, L501.5200 #### [facility] [address] [facility] [place], [address] HEMOGLOBIN A1C Collected: 10/27/2018 Status: F Source: [place] 6:50 AM [facility] REPOSITORY TYPE CODE TESTS RESULT OUT OF RANGE REFERENCE UNITS LAB L501.9985 4.2-6.3 % Normal HGB A1C 6.0 Performed By: #### L501.9985 #### [facility] [address] [facility] [place], [address] ABDOMEN/PELVIS WITHOUT Observed: 10/27/2018 Status: F Source: [place] CONT 5:38 AM [facility] REPOSITORY [facility] Imaging Services [address] [place] [address] Abdomen/Pelvis without Cont MR#: [id number] Acct: [id number] Name: MARK SERRANO Rep #: [id number] : 1950 M 68 From: Chuck Lyons MD PCP: Marcos ABRAHAM,Jalen Mary Status: ADM IN Study: Abdomen/Pelvis without Cont Date of Exam: 10/27/18 Exam# [id number] Ordering Dr: Dakota Gonzales MD STUDY: CT [...] CC: Dakota Gonzales MD; Jalen Rodríguez MD Side Panel Hanger: Signed Observed: 10/26/2018 Status: F Source: [place] CULTURE, SPUTUM 3:25 PM [facility] REPOSITORY Order Date: 10/26/18 CALLED [facility] 10/26/18 0855 TO COLLECT SAMPLE Comfort Jordanmaye. Gram Stain Acceptable Specimen? Yes (<25 Epithelial cells per/lpf) Gram Stain 3+ White Blood Cells Rare Gram positive cocci in clusters Resp. Culture #2 No Haemophilus, Streptococcus pneumoniae, beta-hemolytic Streptococcus or Staphylococcus aureus isolated. ORGANISM 1: Presumptive C albicans Amount Growth 1+ ORGANISM 2: Mixed Connie Amount Growth 2+ Performed By: #### M100.0800 #### [facility] [address] [facility] [place], [address] HISTORY AND PHYSICAL Observed: 10/26/2018 Status: F Source: [place] EXAM 9:27 AM [facility] REPOSITORY [facility] Medical Records Department [address] [place] [address] History and Physical 10/25/18 2308 MR#: [id number] Acct: [id number] Name: MARK SERRANO Rep #: [id number] : 1950 68 From: Dakota Gonzales MD PCP: Marcos ABRAHAM,Jalen Mary Status: ADM IN Y Location: [place] [address] Problem List (1) Stage 4 very severe [...] history of COPD; former smoker; non-ST elevation ND; bowel resection and hypertension who presented with [...] @ [facility] Atherosclerosis of coronary artery of [place] heart without angina pectoris (Chronic) Nonobstructive CAD [...] @ [facility] Atherosclerosis of coronary artery of [place] heart without angina pectoris (Chronic) I25.10 Nonobstructive [...] history of COPD; former smoker; non-ST elevation ND; bowel resection; colon resection and hypertension who [...] stable. 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 Chapman orthotist. Continue outpatient follow-up. Irritable bowel syndrome/Crohn's Disease: Loperamide and Pentasa continued. DVT prophylaxis Subcutaneous heparin. Code Visit Inpatient E AND M: [id number] Init Hosp L3 10/26/18 0927 <Electronically signed by Dakota Gonzales MD> Date Dakota Gonzales MD Cosigner Signature: Date (if applicable) CC: Dakota Gonzales MD; Jalen Rodríguez MD Signed CBC W/DIFF, AUTOMATED Collected: 10/26/2018 Status: C Source: [place] 8:20 AM [facility] REPOSITORY TYPE CODE TESTS RESULT OUT OF [...] Soledad arpan Performed By: #### L100.0100 #### [facility] [address] [facility] [place], [place], [address] BASIC METABOLIC Collected: 10/26/2018 Status: F Source: [place] PROFILE (BMP) 8:20 AM [facility] REPOSITORY TYPE CODE TESTS RESULT OUT OF [...] GAP 7 Performed By: #### L500.2500 #### [facility] [address] [facility] [place], [address] Observed: 10/26/2018 Status: F Source: [place] RESPIRATORY PANEL 4:10 AM [facility] MOLECULAR REPOSITORY RP PANEL ADENOVIRUS Not Detected [...] acid amplification Performed By: #### M100.638 #### [facility] [address] [place], [address] EMERGENCY DEPARTMENT Observed: 10/26/2018 Status: F Source: [place] SUMMARY 12:08 AM [facility] REPOSITORY [facility] Medical Records Department [address] [place] [address] Emergency Department Summary 10/25/182021 MR#: [id number] Acct: [id number] Name: MARK SERRANO Rep #: [id number] : 1950 68 From: Janet Cotton MD PCP: Marcos ABRAHAM,Jalen Roberts [place] Status: REG ER - ER Visit Summary [...] exacerbation, hypoxia This note was generated with [employer] dictation software. It may contain incorrect words, [...] your Primary Care Provider. Call [facility] ([phone]) or report to the closest Emergency Room. Call 911 if necessary. 10/26/18 0008 <Electronically signed by Janet Cotton MD> Date Janet Cotton MD Cosigner Signature (If Indicated): Date CC: Jalen Rodríguez MD BLOOD GASES BY CPS Collected: 10/25/2018 Status: F Source: [place] 8:42 PM [facility] REPOSITORY TYPE CODE TESTS RESULT OUT OF [...] ISTAT 93 Performed By: #### L9000.0800 #### [facility] Point of Care [address] [facility] [place] [address] LACTIC ACID Collected: 10/25/2018 Status: F Source: [place] 8:23 PM [facility] REPOSITORY Order Comment: Yes/No query for Sepsis Lactate Rule Y TYPE CODE TESTS RESULT OUT OF RANGE REFERENCE UNITS LAB L503.6005 0.4-2.0 mmol/L Normal LACTIC ACID 1.7 Performed By: #### L503.6005 #### [facility] [address] [place], [address] CHEST 1 VIEW Observed: 10/25/2018 Status: F Source: [place] (PORTABLE) 8:18 PM [facility] REPOSITORY [facility] Imaging Services [address] [place] [address] Chest 1 View (Portable) MR#: [id number] Acct: [id number] Name: MARK SERRANO Birdie Rep #: [id number] : 1950 M 68 From: Taryn Cummins MD PCP: Marcos ABRAHAM,Jalen Chi Status: REG ER Study: Chest 1 View (Portable) Date of Exam: 10/25/18 Exam# [id number] Ordering Dr: Janet Cotton MD STUDY: X-RAY [...] Cummins MD at 21:59 EST Tel Direct: [phone], Service support , CC: Janet Cotton MD; Jalen Rodríguez MD Side Panel Hanger: Signed CBC W/DIFF, AUTOMATED Collected: 10/25/2018 Status: F Source: [place] 8:15 PM [facility] REPOSITORY TYPE CODE TESTS RESULT OUT OF [...] Lymph 0.78 Performed By: #### L100.0100 #### [facility] [address] [place], [address] BASIC METABOLIC Collected: 10/25/2018 Status: F Source: [place] PROFILE (BMP) 8:15 PM [facility] REPOSITORY TYPE CODE TESTS RESULT OUT OF [...] GAP Performed By: #### L500.2500, L501.4010 #### [facility] [address] [place], [address] TROPONIN-I Collected: 10/25/2018 Status: F Source: [place] 8:15 PM [facility] REPOSITORY TYPE CODE TESTS RESULT OUT OF RANGE REFERENCE UNITS LAB L501.4010 <0.045 ng/mL Normal < 0.015 TROPONIN-I Result Comment: TROPONIN-I EXPECTED VALUES <0.045 Negative 0.045 - 0.590 Consistent with Cardiac Damage > OR = 0.600 Critical Value Not every elevated troponin is indicative of ND. These values should be used with clinical judgement in examining the patient's clinical picture for diagnosis. To establish a diagnosis of ND versus myocardial injury, there must be a demonstrated rise and/or fall in the troponin values, in addition to ischemic symptoms, EKG changes, new regional wall motion abnormality, and/or angiographical evidence. PLEASE NOTE: REFERENCE RANGES EDITED 18 Performed By: #### L500.2500, L501.4010 #### [facility] [address] [facility] [place], [address] 6 MINUTE WALK TEST Observed: 10/04/2018 Status: F Source: [place] 4:10 PM [facility] REPOSITORY [facility] Pulmonary Services/Neurology [address] [place] [address] MR#: [id number] Acct: [id number] Name: MARK SERRANO Rep #: [id number] : 1950 68 From: Salas Ocampo MD Referring Dr: Delma Frey NP Date: Ordering Dr: Sex: M C Location: PSN PSN 6 Minute Walk Test - 6 Minute Walk Test 6 Minute Walk Test: 6 Minute Walk Test PSN:6-Minute Walk Test Start: 10/04/18 14:02 Freq: Status: Active Protocol: RESP.6MINW Document 10/04/18 12:27 SMB (Rec: 10/04/18 14:05 B [id number]) 6 Minute Walk Test Date Performed 10/04/18 [...] CC: Date Dictated: 10/04/181607 Date Transcribed: 10/04/181607 Side Panel Hanger: Salas Ocampo Signed PULMONARY VISIT REPORT Observed: 09/28/2018 Status: F Source: [place] 9:58 AM [facility] REPOSITORY [facility] [address] [place] [address] OFFICE VISIT Date of Service: 09/28/18 MR#: [id number] Acct: [id number] Name: MARK SERRANO Rep #: [id number] : 1950 Provider: Salas Ocampo MD Age/Sex: 68/M Location: [facility] Status: Signed Assessment AND Plan Problems 1. [...] Orders: Plan Detail Follow Up 4 Months ([facility]) HPI 3 M FU: Chief Complaint: Shortness [...] the hospital for his breathing issue in [place]. Patient states he feels improved from that [...] DAILY #30 inh 06/23/18 [Rx Confirmed 09/28/18] [facility] Medical History Non-rheumatic tricuspid valve insufficiency (Chronic) Atherosclerosis of coronary artery of [place] heart without angina pectoris (Chronic) Nicotine abuse [...] CONSULT PROG Observed: 07/13/2018 Status: COMPLETED Source: [place] 4:59 PM [facility] OTHER CAMPUS REPOSITORY HNO ID: [id number] Author: Geovanny Sanders Service: Gastroenterology Author Type: [...] RECTAL q 4 H PRN phenol 1 [facility] (CHLORASEPTIC) 1 [facility] MUCOUS MEMBRANE (TOPICAL MOUTH AND THROAT) q [...] CASE MANAGEM Observed: 07/13/2018 Status: COMPLETED Source: [place] 1:29 PM [facility] OTHER CAMPUS REPOSITORY HNO ID: [id number] Author: Lalita Ferris) DEYVI Ritter Service: Care Management Author Type: Registered Nurse Type: Care Mgt Progress Note Filed: 07/13/2018 1:31 PM Note Text: CARE MANAGEMENT DISCHARGE NOTE SERVICE DATE: 07/13/2018 SERVICE TIME: 1:29 PM LOS: 6 days Admission Date: 07/06/2018 DISCHARGE ARRANGEMENT (list agency and phone number) Home Provider: yaima Phone: [phone] CAREGIVER ASSESSMENT: Caregiver is ready, willing and [...] 13, 2018 TIME: 1:29 PM PAGER/CONTACT #: [phone] CNDS Observed: 07/13/2018 Status: COMPLETED Source: [place] 11:43 AM [facility] OTHER CAMPUS REPOSITORY HNO ID: [id number] Author: Amy Corrales Service: Hospital Medicine Author [...] Problems: Hypertension COPD (chronic obstructive pulmonary disease) ([facility]) Nicotine use disorder, F17.2 Resolved Problems: Bowel obstruction ([facility]) SBO (small bowel obstruction) ([facility]) Hospital Course as Described to the Patient: [...] Component Value Units Date/Time MAGNESIUM BLOOD (AK,AV,EU,FV,HL,GILES,MM,SP) [[id number]] Collected: 07/13/18229 Order Status: Sent Lab Status: No result Specimen: Blood from BLOOD PHOSPHORUS BLOOD (AK,AV,EU,FV,HL,GILES,MM,SP) [[id number]] Collected: 07/13/18229 Order Status: Sent Lab Status: No result Specimen: Blood from BLOOD MAGNESIUM BLOOD (AK,AV,EU,FV,HL,GILES,MM,SP) [[id number]] Collected: 07/11/18253 Order Status: Sent Lab Status: No result Specimen: Blood from BLOOD PHOSPHORUS BLOOD (AK,AV,EU,FV,HL,GILES,MM,SP) [[id number]] Collected: 07/11/18253 Order Status: Sent Lab Status: [...] pena NUTRITION Observed: 07/13/2018 Status: COMPLETED Source: [place] 10:52 AM [facility] REPOSITORY HNO ID: [id number] Author: Maris Patrick RD Service: NST-Nutrition Support [...] reviewed GS/GI signed off DC TPN in [facility] Monitor oral intake, encouraged grazing Maris Patrick, [facility] NST--> [id number] CASE MANAGEM Observed: 07/13/2018 Status: COMPLETED Source: [place] 10:14 AM [facility] REPOSITORY HNO ID: [id number] Author: Lalita (Rn) Stone RN Service: Care [...] 13, 2018 TIME: 10:14 AM PAGER/CONTACT #: [phone] PROGRESS Observed: 07/13/2018 Status: COMPLETED Source: [place] 6:52 AM CLINIC OTHER CAMPUS REPOSITORY HNO ID: [id number] Author: Mojgan ([facility]) Megan Service: General Surgery Author Type: [...] - 07/13/1859 07/13/18699 - 07/14/18 0659 Shift [id number] [id number] [id number] 24 Hour Total 4553-0482 5362-6152 8483-2678 24 Hour Total I N T A [...] RECTAL q 4 H PRN phenol 1 [facility] (CHLORASEPTIC) 1 [facility] MUCOUS MEMBRANE (TOPICAL MOUTH AND THROAT) q [...] Note: Added automatically from request for surgery [id number] - Bowel obstruction (HCC) 07/07/2018 - SBO (small bowel obstruction) (HCC) 07/07/2018 - Nicotine use disorder, F17.2 07/07/2018 - Hypertension - COPD (chronic obstructive pulmonary disease) ([facility]) 68 year old male with SBO, significant [...] questions or concerns Mon-Fri 6a-5p please page [phone]. After 5pm and on Weekends and Holidays, please page [phone]. HEMOGRAM Collected: 07/13/2018 Status: F Source: [facility] 4:42 AM HEALTH SYSTEM REPOSITORY TYPE CODE [...] MPV 11.2 Performed By: #### CBC1 #### [address] [address] NURSING PROG Observed: 07/13/2018 Status: COMPLETED Source: [facility] 4:00 AM CLINIC OTHER CAMPUS REPOSITORY HNO ID: [id number] Author: Nayeli (Rn) DEYVI Walls Service: Nursing Author Type: Registered Nurse Type: Nursing Progress Note Filed: 07/13/2018 4:10 AM Note Text: Nursing Progress Note Patient Name: Mark Serrano Patient Location: [place] [address] [address]* Patient refusing to have home inhaler put [...] MDRD GFR Collected: 07/13/2018 Status: F Source: [facility] 2:30 AM HEALTH SYSTEM REPOSITORY TYPE CODE TESTS RESULT OUT OF RANGE REFERENCE UNITS LAB GFRFN(LOINC >60mL/min/1.73m ) 2 eGFR 49.68 Result Comment: If the patient is , multiply the result by 1.210. Performed By: #### GFR #### [place] [address] BASIC PANEL Collected: 07/13/2018 Status: F Source: [facility] 2:30 AM HEALTH SYSTEM REPOSITORY TYPE CODE [...] Gap 9 Performed By: #### P8 #### [place] [address] MAGNESIUM BLOOD Collected: 07/13/2018 Status: F Source: [facility] 2:30 AM HEALTH SYSTEM REPOSITORY TYPE CODE TESTS RESULT OUT OF REFERENCE UNITS RANGE LAB MAG(LOINC) 1.6-2.6 mg/dL Magnesium Blood 2.2 Performed By: #### MAG #### [place] [address] PHOSPHORUS BLOOD Collected: 07/13/2018 Status: F Source: [facility] 2:30 AM HEALTH SYSTEM REPOSITORY TYPE CODE TESTS RESULT OUT OF REFERENCE UNITS RANGE LAB PHOS(LOINC 2.5-4.9 mg/dL ) Phosphorus Blood 3.3 Performed By: #### PHOS #### [place] [address] NURSING PROG Observed: 07/12/2018 Status: COMPLETED Source: [facility] 4:18 PM [facility] REPOSITORY HNO ID: [id number] Author: Winnie (Rn) DEYVI Jarvis Service: Nursing Author Type: Registered Nurse Type: Nursing Progress Note Filed: 07/12/2018 4:20 PM Note Text: Pt gave permission for RN to speak to Zoila Davalos. THERAPY NT Observed: 07/12/2018 Status: COMPLETED Source: [facility] 1:58 PM [facility] OTHER [place] REPOSITORY HNO ID: [id number] Author: Edith Murillo/Tin Garza Service: Occupational Therapy Author Type: Occupational Therapist Type: Therapy (PT/OT/Speech/Resp) Filed: 07/12/2018 2:03 PM Note Text: Occupational Therapy Evaluation SERVICE DATE: 07/12/2018 SERVICE TIME: 1325 to 1349 ROOM: [place] [address] Recommended Discharge Disposition: Home Recommended Discharge Disposition [...] daily living (ADL) Interventions Provided: Evaluation;Therapeutic Activity (58946) $ Evaluation-Low (64064) Billed Units: 1 unit Therapeutic Activity (96215) Treatment Minutes: 8 1 unit Skilled Intervention(s): [...] adaptive equipment to use if needed (ie. collection card clerk to pick items off ground). Edu pt [...] Vomiting Added automatically from request for surgery [id number] - Bowel obstruction ([facility]) - SBO (small bowel obstruction) ([facility]) - Nicotine use disorder, F17.2 - Hypertension - COPD (chronic obstructive pulmonary disease) ([facility]) PAST MEDICAL HISTORY Diagnosis Date - Arthritis - COPD (chronic obstructive pulmonary disease) ([facility]) - Crohn's disease ([facility]) - Depression - Diarrhea - Emphysema - Hypertension - IBS (irritable bowel syndrome) - Unspecified essential hypertension PAST SURGICAL HISTORY Procedure Laterality Date - COLONOSCOP W/ OR W/O [facility] SPEC Colonoscopy x 4 [...] Environment Patient Lives With: (friend) Assistance Available: time buyer Entry To Home: Stairs;With Rail Number Of [...] CONSULT PROG Observed: 07/12/2018 Status: COMPLETED Source: [facility] 1:41 PM CLINIC OTHER CAMPUS REPOSITORY HNO ID: [id number] Author: Maryanne Castillo Service: General Surgery Author Type: Nurse Practitioner Type: Consult Progress Note Filed: 07/12/2018 1:45 PM Note Text: Continues to feel well. Minimal tenderness lower abdomen. Denies nausea, vomiting. +flatus, +BM. Gastric emptying study shows normal rate of gastric emptying of water. Okay to advance diet as tolerated from surgical standpoint. Maryanne Castillo APRN.[facility] Pager: [phone] Emergency General Surgery Service Pager: For questions or concerns Wed-Wed 6a-5p please page [phone]. After 5pm and on Weekends and Holidays, please page [phone]. NUTRITION Observed: 07/12/2018 Status: COMPLETED Source: [facility] 1:33 PM [facility] OTHER [place] REPOSITORY HNO ID: [id number] Author: Maris Patrick RD Service: NST-Nutrition Support [...] 61 kg) per day ? Maris Patrick, [facility] NST--> [id number] PROGRESS Observed: 07/12/2018 Status: COMPLETED Source: [facility] 1:22 PM [facility] OTHER [place] REPOSITORY HNO ID: [id number] Author: Barbara Baldwin Service: Hospital Medicine Author [...] RECTAL q 4 H PRN phenol [facility] (CHLORASEPTIC) [facility] MUCOUS MEMBRANE (TOPICAL MOUTH AND THROAT) q [...] Result History NM GASTRIC EMPTYING LIQUID (Order #[id number]) on 07/12/2018 Assessment/Plan Pt denies n/v/abd pain [...] CONSULT PROG Observed: 07/12/2018 Status: COMPLETED Source: [facility] 11:03 AM CLINIC OTHER CAMPUS REPOSITORY HNO ID: [id number] Author: Jovi Wilhelm Service: Gastroenterology Author Type: [...] RECTAL q 4 H PRN phenol 1 [facility] (CHLORASEPTIC) 1 [facility] MUCOUS MEMBRANE (TOPICAL MOUTH AND THROAT) q [...] Defer to general surgery SIGNATURE: Jovi Wilhelm APRN.ZIGZAG STITCHER PATIENT NAME: Mark Serrano DATE: July 12, 2018 TIME: 11:03 AM PAGER: NM GASTRIC EMPTYING Observed: 07/12/2018 Status: F Source: [employer] 9:21 AM HEALTH SYSTEM REPOSITORY Performed at [facility] APPROVED BY: FELICIA DOVER MD GASTRIC [...] WATER. PROGRESS Observed: 07/12/2018 Status: COMPLETED Source: [facility] 9:03 AM [facility] OTHER CAMPUS REPOSITORY HNO ID: [id number] Author: Caro CortezRtSandy Hackett Service: Nuclear Medicine Author Type: Technology Lead Type: Progress Notes Filed: 07/12/2018 9:05 AM [...] safety can be found using this link: [email or web address] SIGNATURE: RT Marilin PATIENT NAME: Mark Serrano DATE: July 12, 2018 TIME: 9:04 AM PAGER/CONTACT #: PROGRESS Observed: 07/12/2018 Status: COMPLETED Source: [facility] 8:10 AM CLINIC OTHER CAMPUS REPOSITORY HNO ID: [id number] Author: Maryanne Castillo Service: General Surgery Author [...] 07/11/18699 - 07/12/1865807/12/18699 - 07/13/18 06 Shift 9042-0533 3609-9796 8233-6405 24 Hour Total 1652-9835 2822-1113 4223-9652 24 Hour Total I N T A [...] RECTAL q 4 H PRN phenol 1 [facility] (CHLORASEPTIC) 1 [facility] MUCOUS MEMBRANE (TOPICAL MOUTH AND THROAT) q [...] Note: Added automatically from request for surgery [id number] - Bowel obstruction ([facility]) 07/07/2018 - SBO (small bowel obstruction) ([facility]) 07/07/2018 - Nicotine use disorder, F17.2 07/07/2018 - Hypertension - COPD (chronic obstructive pulmonary disease) ([facility]) 68 year old male with SBO, significant [...] questions or concerns Mon-Fri 6a-5p please page [phone]. After 5pm and on Weekends and Holidays, please page [phone]. BASIC PANEL Collected: 07/12/2018 Status: F Source: [facility] 2:20 AM HEALTH SYSTEM REPOSITORY TYPE CODE [...] Gap 8 Performed By: #### P8 #### [place] [address] MAGNESIUM BLOOD Collected: 07/12/2018 Status: F Source: [facility] 2:20 AM HEALTH SYSTEM REPOSITORY TYPE CODE TESTS RESULT OUT OF REFERENCE UNITS RANGE LAB MAG(LOINC) 1.6-2.6 mg/dL Magnesium Blood 2.0 Performed By: #### MAG #### [place] [address] PHOSPHORUS BLOOD Collected: 07/12/2018 Status: F Source: [facility] 2:20 AM HEALTH SYSTEM REPOSITORY TYPE CODE TESTS RESULT OUT OF REFERENCE UNITS RANGE LAB PHOS(LOINC 2.5-4.9 mg/dL ) Phosphorus Blood 3.5 Performed By: #### PHOS #### [place] [address] PROGRESS Observed: 07/11/2018 Status: COMPLETED Source: [facility] 7:47 PM CLINIC OTHER CAMPUS REPOSITORY O ID: [id number] Author: Barbara Baldwin Service: Hospital Medicine Author [...] RECTAL q 4 H PRN phenol 1 [facility] (CHLORASEPTIC) 1 [facility] MUCOUS MEMBRANE (TOPICAL MOUTH AND THROAT) q [...] THERAPY NT Observed: 07/11/2018 Status: COMPLETED Source: [facility] 2:19 PM CLINIC OTHER CAMPUS REPOSITORY HNO ID: [id number] Author: Balbir (Pt) Young Service: Physical Therapy Author Type: Physical Therapist Type: Therapy (PT/OT/Speech/Resp) Filed: 07/11/2018 2:26 PM Note Text: Physical Therapy Evaluation SERVICE DATE: 07/11/2018 SERVICE TIME: 1335 to 1402 ROOM: [place] [address] ([facility]) Recommended Discharge Disposition: [...] mobility-other;Unsteadiness on feet Interventions Provided: Evaluation;Therapeutic Activity (18328) $ Evaluation-Low (70706) Billed Units: 1 unit Therapeutic Activity (98176) Treatment Minutes: 10 1 unit Skilled Intervention(s): [...] Vomiting Added automatically from request for surgery [id number] - Bowel obstruction (HCC) - SBO (small [...] Laterality Date - COLONOSCOP W/ OR W/O [facility] SPEC Colonoscopy x 4 - PAST SURGICAL HISTORY OF 2003 lower bowel surgery - PAST SURGICAL HISTORY OF dental surgery - REMOVAL OF TONSILS,<10 Y/O Tonsillectomy Patient Report: Identification verified x2, patient agreeable to therapy. Works in [employer] on [employer], not a business, just something we do. Long time roommate recently, now former roommate's son lives with patient. 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 Intervention: Start [...] 0254 PREALB 13.6* Maris Patrick RD, LD, [facility] Pager: [phone] Increments: 3 NURSING PROG Observed: 07/11/2018 Status: COMPLETED Source: [facility] 11:16 AM [facility] REPOSITORY HNO ID: [id number] Author: Felicitas CortezRn) Kody RN Service: Nursing Author Type: Registered Nurse Type: Nursing Progress Note Filed: 07/11/2018 11:17 AM Note Text: Dr. Sanders by to see patient at bedside, patient states he is passing gas PT ED Observed: 07/11/2018 Status: COMPLETED Source: [facility] 11:06 AM [facility] REPOSITORY HNO ID: [id number] Author: Felicitas (Rn) Kody RN Service: Nursing [...] OP NOT Observed: 07/11/2018 Status: COMPLETED Source: [facility] 11:03 AM [facility] REPOSITORY HNO ID: [id number] Author: Geovanny Sanders Service: Gastroenterology Author Type: Physician Type: Brief Op Note Filed: 07/11/2018 11:06 AM Note Text: BRIEF OPERATIVE / PROCEDURE NOTE LOG ID: [id number] SURGERY/PROCEDURE DATE: 07/11/2018 INCISION/PROCEDURE START TIME: 10:33 AM INCISION CLOSE/PROCEDURE END TIME: 10:51 AM SURGEON(S)/PROCEDURALIST(S) AND MEDICAL RECORD LIBRARIANS TEACHER(S): Surgeon(s) and Role: * Geovanny Sanders - [...] PT ED Observed: 07/11/2018 Status: COMPLETED Source: [facility] 9:09 AM [facility] REPOSITORY HNO ID: [id number] Author: Felicitas Ferris) Kody, RN Service: Nursing [...] GODINEZ PREOP Observed: 07/11/2018 Status: COMPLETED Source: [facility] 9:03 AM [facility] REPOSITORY HNO ID: [id number] Author: Jose Juan Martinez MD Service: Anesthesiology [...] Laterality Date - COLONOSCOP W/ OR W/O [facility] SPEC Colonoscopy x 4 [...] (radiology procedure) INTRAVENOUS DIRECTED PRN Mojgan Ring (Nail Polish Brush Machine Feeder) Yuan [MAR Hold due to Transfer] acetaminophen 650 mg suppository (TYLENOL) 650 mg RECTAL q 4 H PRN Barbara Baldwin [DEC Hold due to Transfer] phenol 1 [facility] (CHLORASEPTIC) 1 [facility] MUCOUS MEMBRANE (TOPICAL MOUTH AND THROAT) q 2 H PRN Uday Valluri 1 [facility] at 07/09/18 0851 [MAR Hold due to [...] SUBCUTANEOUS q 12 H Priti (Vianney) APRN. MarkZIGZAG STITCHER 5,000 Units at 07/10/181919 [MAR Hold due to Transfer] 0.9% NaCl 3-5 mL 3-5 mL INTRAVENOUS q 12 H Priti (Vianney) APRN. MarkZIGZAG STITCHER 3 mL at 07/07/18 0037 [MAR Hold due to Transfer] morphine 1-2 mg injection 1-2 mg INTRAVENOUS q 4 H PRN Priti (Refractory Grinder Operator) APRN. MarkZIGZAG STITCHER 1 mg at 07/07/18 0037 [MAR Hold due to Transfer] ipratropium-albuterol 3 mL nebulizer solution (DUONEB) 3 mL INHALATION q 4 H PRN Priti (Refractory Grinder Operator) APRN. MarkZIGZAG STITCHER 3 mL at 07/08/18 1556 [MAR Hold due to Transfer] pantoprazole 40 mg injection (PROTONIX) 40 mg INTRAVENOUS DAILY (6 AM) Gerson (Res) Dade 40 mg at 07/11/18 0511 [MAR Hold [...] July 11, 2018 TIME: 9:03 AM CSN: [id number] CASE MANAGEM Observed: 07/11/2018 Status: COMPLETED Source: [facility] 8:44 AM CLINIC OTHER CAMPUS REPOSITORY HNO ID: [id number] Author: Lalita CortezRn) DEYVI Ritter Service: Care [...] 11, 2018 TIME: 8:44 AM PAGER/CONTACT #: [phone] PROGRESS Observed: 07/11/2018 Status: COMPLETED Source: [facility] 6:55 AM CLINIC OTHER [place] REPOSITORY HNO ID: [id number] Author: Maryanne Castillo Service: General Surgery Author [...] Date 07/10/18699 - 07/11/1865807/11/18699 - 07/12/1859 Shift 5185-8398 8948-0142 5887-2939 24 Hour Total 5241-9716 7642-2002 7229-3792 24 Hour Total I N T A K E Shift Total O U T P U T Urine 6647 319 6098 Void (ml) 3399 294 5473 Tubes 700 700 Output (GI Feed/Drain 07/06/18 2230 Admission to Hospital Nasogastric Right Naris) 700 700 # of BMs Number of BMs 1 x 1 x Shift Total 1697 198 5672 Weight (kg) 44 44 43.2 43.2 43.2 [...] [MAR Hold due to Transfer] phenol 1 [facility] (CHLORASEPTIC) 1 [facility] MUCOUS MEMBRANE (TOPICAL MOUTH AND THROAT) q [...] Note: Added automatically from request for surgery [id number] - Bowel obstruction (HCC) 07/07/2018 - SBO (small bowel obstruction) ([facility]) 07/07/2018 - Nicotine use disorder, F17.2 07/07/2018 - Hypertension - COPD (chronic obstructive pulmonary disease) ([facility]) 68 year old male with SBO, significant [...] and on Weekends and Holidays, please page [phone]. BASIC PANEL Collected: 07/11/2018 Status: F Source: [facility] 2:54 AM HEALTH SYSTEM REPOSITORY TYPE CODE [...] Gap 11 Performed By: #### P8 #### [place] [address] MAGNESIUM BLOOD Collected: 07/11/2018 Status: F Source: [facility] 2:54 AM HEALTH SYSTEM REPOSITORY TYPE CODE TESTS RESULT OUT OF REFERENCE UNITS RANGE LAB MAG(LOINC) 1.6-2.6 mg/dL Magnesium Blood 2.2 Performed By: #### MAG #### [place] [address] PHOSPHORUS BLOOD Collected: 07/11/2018 Status: F Source: [facility] 2:54 AM HEALTH SYSTEM REPOSITORY TYPE CODE TESTS RESULT OUT OF REFERENCE UNITS RANGE LAB PHOS(LOINC 2.5-4.9 mg/dL ) Phosphorus Blood 3.6 Performed By: #### PHOS #### [place] [address] PREALBUMIN Collected: 07/11/2018 Status: F Source: [facility] 2:54 AM HEALTH SYSTEM REPOSITORY TYPE CODE TESTS RESULT OUT OF REFERENCE UNITS RANGE LAB PAB(LOINC) 20.0-40.0 mg/dL Low Prealbumin 13.6 Performed By: #### PAB #### [place] [address] SURGICAL TISSUE EXAM Observed: 07/11/2018 Status: F Source: [facility] 12:00 AM HEALTH SYSTEM REPOSITORY Test performed at [place] [address] NAME: MARK SERRANO REQUESTING: GEOVANNY SANDERS M.D. [...] of 1 Performed By: #### SURG #### [place] [address] OPERATIVE NO Observed: 07/11/2018 Status: COMPLETED Source: [facility] 12:00 AM CLINIC OTHER CAMPUS REPOSITORY HNO ID: [id number] Author: Geovanny Sanders Service: Gastroenterology Author Type: Physician Type: Operative Report Filed: 07/11/2018 6:23 PM Note Text: [facility] - Operative Report MARK SERRANO : 1950 AGE: 68. SEX: M PATIENT TYPE: I HOSP SVC: INT [place] [facility]ING PHYSICIAN: BARBARA BALDWIN CSN NUMBER: [id number] DATE OF SURGERY/PROCEDURE: 07/11/2018 INCISION/PROCEDURE START TIME: 10:33. INCISION CLOSE/PROCEDURE END TIME: 10:51. PREOPERATIVE DIAGNOSIS: See below POSTOPERATIVE DIAGNOSIS: SURGEON: Geovanny Sanders MD MEDICAL RECORD LIBRARIANS TEACHER: Mino Petersen. SURGERY/PROCEDURE: Esophagogastroduodenoscopy with biopsies. ANESTHESIA: Monitored Anesthesia Care LOG ID: [id number]. PREOPERATIVE DIAGNOSES: 1. Nausea and vomiting. 2. [...] patient has recurrent symptoms. Geovanny Sanders MD [id number] /[id number] OPERATIVE NO Observed: 07/11/2018 Status: COMPLETED Source: [facility] 12:00 AM [facility] OTHER CAMPUS REPOSITORY O ID: [id number] Author: Geovanny Sanders Service: Gastroenterology Author Type: Physician Type: Operative Report Filed: 07/20/2018 8:51 AM Note Text: [facility] - Operative Report MARK SERRANO Birdie : 1950 AGE: 68. SEX: M PATIENT TYPE: I HOSP SVC: INTM LOCATION[place] [facility] [facility]ENDING PHYSICIAN: BARBARA BALDWIN [facility] NUMBER: [id number] DATE OF SURGERY/PROCEDURE: 07/11/2018 INCISION/PROCEDURE START TIME: 10:33. INCISION CLOSE/PROCEDURE END TIME: 10:51. PREOPERATIVE DIAGNOSIS: See below POSTOPERATIVE DIAGNOSIS: See below SURGEON: Geovanny Sanders MD MEDICAL RECORD LIBRARIANS TEACHER: Mino Petersen. SURGERY/PROCEDURE: Esophagogastroduodenoscopy with biopsies. ANESTHESIA: Monitored Anesthesia Care LOG ID: [id number]. PREOPERATIVE DIAGNOSES: 1. Nausea and vomiting. 2. [...] patient has recurrent symptoms. Geovanny Sanders MD [id number] /[id number] PROGRESS Observed: 07/10/2018 Status: COMPLETED Source: [facility] 6:04 PM CLINIC OTHER CAMPUS REPOSITORY HNO ID: [id number] Author: Barbara Gamez Nicolasa Service: Hospital Medicine Author Type: Physician Type: Progress Notes Filed: 07/10/2018 10:31 PM Note Text: INTERNAL MEDICINE PROGRESS NOTE SERVICE DATE: 07/10/2018 SERVICE TIME: 6:05 PM ADMITTING PHYSICIAN: Dalia Santos Subjective CHIEF COMPLAINT: f/u medical issues listed below Current Facility-Administered Medications: Parenteral Nutrition - Adult INTRAVENOUS ONCE TPN (1800 START) iv contrast (radiology procedure) INTRAVENOUS DIRECTED PRN phenol 1 [facility] ([facility]PT[facility]) 1 [facility] MUCOUS MEMBRANE (TOPICAL MOUTH AND THROAT) q [...] UPPER GI W SMALL BOWEL SERIES (Order #[id number]) on 07/07/2018 Assessment/Plan 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 PROGRESS Observed: 07/10/2018 Status: COMPLETED Source: [facility] 6:20 AM CLINIC OTHER CAMPUS REPOSITORY HNO ID: [id number] Author: Mojgan Ring (Nail Polish Brush Machine Feeder) Yuan Service: General Surgery Author Type: Nurse [...] 07/09/18699 - 07/10/1865807/10/18699 - 07/11/18 0659 Shift 1176-4107 3274-3917 3003-4867 24 Hour Total 1204-7060 6428-0056 1755-1764 24 Hour Total I N T A K E TPN/PPN 800 800 TPN 800 800 Shift Total 800 800 O U T P U T Urine 650 1 651 Void (ml) 650 650 Urine Not Saved 1 1 Tubes 081 824 0310 Output (GI Feed/Drain 07/06/182229 Admission to Hospital Nasogastric Right Naris) 889 200 6917 Shift Total 650 801 145 1881 Weight (kg) 43.5 44 44 44 44 44 44 44 MEDICATIONS Current Facility-Administered Medications: phenol 1 [facility] (CHLORASEPTIC) 1 [facility] MUCOUS MEMBRANE (TOPICAL MOUTH AND THROAT) q [...] Problems Diagnosis Date Noted - Bowel obstruction ([facility]) 07/07/2018 - SBO (small bowel obstruction) ([facility]) 07/07/2018 - Nicotine use disorder, F17.2 07/07/2018 - Hypertension - COPD (chronic obstructive pulmonary disease) ([facility]) 68 year old male with SBO, significant [...] - CT chest ? SIGNATURE: Mojgan Bolden APRN.FRENCH FOLDER PATIENT NAME: Mark Serrano DATE: July 10, 2018 TIME: 6:20 AM CONTACT: [id number] Emergency General Surgery Service Pager: For questions or concerns Mon-Wed 6a-5p please page [phone]. After 5pm and on Weekends and Holidays, please page [phone]. BASIC PANEL Collected: 07/10/2018 Status: F Source: [facility] 2:47 AM HEALTH SYSTEM REPOSITORY TYPE CODE [...] Gap 11 Performed By: #### P8 #### [place] [address] MAGNESIUM BLOOD Collected: 07/10/2018 Status: F Source: [facility] 2:47 AM HEALTH SYSTEM REPOSITORY TYPE CODE TESTS RESULT OUT OF REFERENCE UNITS RANGE LAB MAG(LOINC) 1.6-2.6 mg/dL Magnesium Blood 2.0 Performed By: #### MAG #### [place] [address] PHOSPHORUS BLOOD Collected: 07/10/2018 Status: F Source: [facility] 2:47 AM HEALTH SYSTEM REPOSITORY TYPE CODE TESTS RESULT OUT OF REFERENCE UNITS RANGE LAB PHOS(LOINC 2.5-4.9 mg/dL ) Phosphorus Blood 3.2 Performed By: #### PHOS #### [place] [address] PROGRESS Observed: 07/09/2018 Status: COMPLETED Source: [facility] 3:06 PM CLINIC OTHER CAMPUS REPOSITORY O ID: [id number] Author: Christoph Robert Service: Gastroenterology Author Type: Physician Type: Progress Notes Filed: 07/09/2018 3:11 PM Note Text: CONSULT: GASTROENTEROLOGY SERVICE SERVICE DATE: 07/31/2017 SERVICE TIME: 3:06 PM SUBJECTIVE Chief complaint: 1. Persistent high NG output 2. 3. [place]: Nausea is better; does not like NG tube Current Facility-Administered Medications: phenol 1 [facility] ([facility]) 1 [facility] MUCOUS MEMBRANE (TOPICAL MOUTH AND THROAT) q 2 H PRN Uday Valluri 1 [facility] at 07/09/18 0851 Parenteral Nutrition - Adult [...] SUBCUTANEOUS q 12 H Priti (Vianney) APRN. MarkZIGZAG STITCHER 5,000 Units at 07/09/18 0858 0.9% NaCl 3-5 mL 3-5 mL INTRAVENOUS q 12 H Priti (Vianney) APRN. MarkZIGZAG STITCHER 3 mL at 07/07/18 0037 morphine 1-2 mg injection 1-2 mg INTRAVENOUS q 4 H PRN Priti (Vianney) APRN. MarkZIGZAG STITCHER 1 mg at 07/07/18 0037 ipratropium-albuterol 3 mL nebulizer solution (DUONEB) 3 mL INHALATION q 4 H PRN Priti (Vianney) APRN. MarkZIGZAG STITCHER 3 mL at 07/08/18 1556 pantoprazole 40 mg injection (PROTONIX) 40 mg INTRAVENOUS DAILY (6 AM) Gerson Izaguirre Dade 40 mg at 07/09/18 0503 0.9% NaCl [...] Serrano DATE: 07/09/18 TIME: 3:06 PM MOBILE: [phone] PROGRESS Observed: 07/09/2018 Status: COMPLETED Source: [facility] 9:45 AM CLINIC OTHER CAMPUS REPOSITORY HNO ID: [id number] Author: Uday Jo Service: Hospital Medicine Author [...] PAGER: PROGRESS Observed: 07/09/2018 Status: COMPLETED Source: [facility] 6:24 AM CLINIC OTHER CAMPUS REPOSITORY HNO ID: [id number] Author: Mojgan Ring (Nail Polish Brush Machine Feeder) Yuan Service: General Surgery Author Type: Nurse [...] 07/08/18699 - 07/09/1865807/09/18699 - 07/10/18 0659 Shift 4466-7492 5553-2941 7773-9190 24 Hour Total 7322-6745 3774-2891 1610-5547 24 Hour Total I N T A K E TPN/PPN 800 800 TPN 800 800 Shift Total 800 800 O U T P U T Urine 175 100 275 Void (ml) 175 100 275 Tubes 051 786 8371 Output (GI Feed/Drain 07/06/18 2230 Admission to Hospital Nasogastric Right Naris) 140 839 5578 Shift Total 425 394 742 6586 Weight (kg) 42.8 43.5 43.5 43.5 43.5 [...] Hypertension - COPD (chronic obstructive pulmonary disease) ([facility]) 68 year old male with SBO, significant weight loss/malnutrition, concern for SMA syndrome ? - Medical management per primary - Cont NG LIWS - Continue TPN - No acute surgical intervention at this point - Consult GI for EGD to rule out neoplasm, [place] Feeding tube may be needed ? 0810 Assessment and plan discussed with attending: Dr. Guerrero. ? SIGNATURE: Mojgan Bolden APRN.FRENCH FOLDER PATIENT NAME: Mark Serrano DATE: July 09, 2018 TIME: 6:24 AM CONTACT: [id number] Emergency General Surgery Service Pager: For questions or concerns Mon-Fri 6a-5p please page 3492. After 5pm and on Weekends and Holidays, please page [phone]. BASIC PANEL Collected: 07/09/2018 Status: F Source: [facility] 3:36 AM HEALTH SYSTEM REPOSITORY TYPE CODE [...] Gap 9 Performed By: #### P8 #### [facility] [address] [place], [place] [address] MAGNESIUM BLOOD Collected: 07/09/2018 Status: F Source: [facility] 3:36 AM HEALTH SYSTEM REPOSITORY TYPE CODE TESTS RESULT OUT OF REFERENCE UNITS RANGE LAB MAG(LOINC) 1.6-2.6 mg/dL Magnesium Blood 1.8 Performed By: #### MAG #### [facility] [address] [place], [place] [address] PHOSPHORUS BLOOD Collected: 07/09/2018 Status: F Source: [facility] 3:36 AM HEALTH SYSTEM REPOSITORY TYPE CODE TESTS RESULT OUT OF REFERENCE UNITS RANGE LAB PHOS(LOINC 2.5-4.9 mg/dL ) Phosphorus Blood 3.5 Performed By: #### PHOS #### [facility] [address] [place] [address] ABDOMEN 1 VIEW Observed: 07/08/2018 Status: F Source: [facility] 4:40 PM HEALTH SYSTEM REPOSITORY Performed at [facility] APPROVED BY: KAMRAN ALSTON MD ABDOMEN [...] NURSING PROG Observed: 07/08/2018 Status: COMPLETED Source: [facility] 3:58 PM CLINIC OTHER CAMPUS REPOSITORY HNO ID: [id number] Author: Vera CortezRn) DEYVI Dhillon Service: Nursing [...] PM CLINIC OTHER CAMPUS REPOSITORY HNO ID: [id number] Author: Lalita (Rn) DEYVI Ritter Service: Care Management Author Type: Registered Nurse Type: Care Mgt Initial Assessment Filed: 07/08/2018 3:47 PM Note Text: CARE MANAGEMENT: ASSESSMENT AND DISCHARGE PLAN SERVICE DATE: 07/08/2018 SERVICE TIME: 3:43 PM PRIMARY CARE PHYSICIAN: Jacqui Cadet MD ADMISSION STATUS: Inpatient Needs Prior to Discharge: To Be Determined;Home Care Order;OT/PT Evaluation MEDICAL: Patient/Process Development Technician Stated Goals: To improve my functional status To return home to life as it was Health Insurance: MEDICARE A AND B None Health Issues Impacting Discharge Plan: None Last Admission Date: none Is this Within the Past 30 days? No Advance Directive: Current Advance Directive: Health Care Power of It Help Desk Manager;Living Will In Chart: No Architectural Representative Attempted to Assist with AD Completion: No [...] Treatments Has the Patient Been in a [place] [facility] Facility in the Past 30 days? 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 Currently on TPN and LIWS with [employer] placed. No weekend DC planned. Will follow for any transitional needs SIGNATURE: Lalita Ritter RN PATIENT NAME: Mark Serrano DATE: July 08, 2018 TIME: 3:43 PM PAGER/CONTACT #: [phone] HGB A1C Collected: 07/08/2018 Status: F Source: [facility] 2:15 PM HEALTH SYSTEM REPOSITORY TYPE CODE TESTS RESULT OUT OF RANGE REFERENCE UNITS LAB A1C5(LOINC) 4.2-6.3 % Hgb A1c 5.9 Result Comment: Method is National Glycohemoglobin Standardization Program (NGSP) compliant. LAB ESAVG(LOINC) mg/dl Est. 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 Intervention: Start [...] 0530 CRP 0.31* Maris Patrick RD, LD, [facility] Pager: [phone] Increments: 3 PROGRESS Observed: 07/08/2018 Status: COMPLETED Source: [facility] 6:34 AM CLINIC OTHER CAMPUS REPOSITORY HNO ID: [id number] Author: Lisa ([facility]) Yuan Service: General Surgery Author Type: [...] 07/07/18699 - 07/08/1865807/08/18699 - 07/09/18 06 Shift 7222-7950 7188-1559 3208-9858 24 Hour Total 3917-9152 2288-4097 4382-8961 24 Hour Total I N T A [...] Hypertension - COPD (chronic obstructive pulmonary disease) ([facility]) 68 year old male with SBO, significant [...] July 08, 2018 TIME: 6:35 AM CONTACT: [id number] Emergency General Surgery Service Pager: For questions or concerns Mon-Fri 6a-5p please page [phone]. After 5pm and on Weekends and Holidays, please page [phone]. HEMOGRAM/DIFF Collected: 07/08/2018 Status: F Source: [facility] 5:30 AM HEALTH SYSTEM REPOSITORY TYPE CODE [...] 0.57 LAB MONON(LOIN 0.30-0.82 thou/cmm C) Abs. Logan 0.33 LAB EOSN(LOINC 0.04-0.54 thou/cmm ) Abs. Eosin 0.06 LAB BASON(LOIN 0.01-0.08 thou/cmm C) Abs. Baso 0.02 Performed By: #### CBCD1 #### [place] [address] BASIC PANEL Collected: 07/08/2018 Status: F Source: [facility] 5:30 AM HEALTH SYSTEM REPOSITORY TYPE CODE [...] Blood 375 Performed By: #### P8 #### [place] [address] MAGNESIUM BLOOD Collected: 07/08/2018 Status: F Source: [facility] 5:30 AM HEALTH SYSTEM REPOSITORY TYPE CODE TESTS RESULT OUT OF REFERENCE UNITS RANGE LAB MAG(LOINC) 1.6-2.6 mg/dL Magnesium Blood 2.4 Performed By: #### MAG #### [place] [address] PHOSPHORUS BLOOD Collected: 07/08/2018 Status: F Source: [facility] 5:30 AM HEALTH SYSTEM REPOSITORY TYPE CODE TESTS RESULT OUT OF REFERENCE UNITS RANGE LAB PHOS(LOINC 2.5-4.9 mg/dL ) Phosphorus Blood 4.6 Performed By: #### PHOS #### [facility] [address] [place], [place] [address] TRIGLYCERIDE BLOOD Collected: 07/08/2018 Status: F Source: [facility] 5:30 AM HEALTH SYSTEM REPOSITORY TYPE CODE TESTS RESULT OUT OF REFERENCE UNITS RANGE LAB TRIG(LOINC 0-149 mg/dL ) Triglyceride High Blood 327 Result Comment: < 200 Desirable Result invalid if not a fasting specimen. Performed By: #### TRIG #### [facility] [address] [place] [address] CRP Collected: 07/08/2018 Status: F Source: [facility] 5:30 AM HEALTH SYSTEM REPOSITORY TYPE CODE TESTS RESULT OUT OF RANGE REFERENCE UNITS LAB CRP3(LOINC) 0.00-0.30 mg/dL High CRP 0.31 Performed By: #### CRP3 #### [facility] [address] [place], [place] [address] CONSULT Observed: 07/07/2018 Status: COMPLETED Source: [facility] 2:51 PM CLINIC OTHER CAMPUS REPOSITORY HNO ID: [id number] Author: Kay Cummings Service: Gastroenterology Author Type: [...] Laterality Date - COLONOSCOP W/ OR W/O [facility] SPEC Colonoscopy x 4 [...] possibility of ?SMA syndrome CT abd/pelvis at [facility]: Distended stomach and proximal duodenum with [...] 1236 PROCEDURE Observed: 07/07/2018 Status: COMPLETED Source: [facility] 2:11 PM CLINIC OTHER CAMPUS REPOSITORY HNO ID: [id number] Author: Christina (Rn) Geoffrey Gordillo RN Service: PICC Team Author Type: Registered Nurse Type: Procedures Filed: 07/07/2018 2:16 PM Note Text: PICC NURSE INSERTION NOTE DATE OF PROCEDURE: July 07, 2018 TIME OF PROCEDURE: 1325 ORDERING PHYSICIAN: arron INFORMED CONSENT: Obtained per hospital policy. INDICATION FOR LINE PLACEMENT: PH/Osmolality Poor veins/circulatory system CONDITION OF LINE PLACEMENT: Sterile PRIMARY PROCEDURALIST: Christina Gordillo RN MEDICAL RECORD LIBRARIANS TEACHER: Dena Phillip RN PRE-PROCEDURE REVIEW ALLERGIES Allergen [...] Gordillo RN CATHETER PLACEMENT Brand: bard Lot: [id number] Number of Lumens: 2 Type of PICC: Power Injectable PICC Lumen Size: 5 Ghanaian PLACEMENT TECHNIQUE Lidocaine: Yes. Strength: 1% Volume [...] wire Patient Education Materials: Placed in chart [facility] Central Line Insertion Checklist QUESTIONS or PROBLEMS: Call [phone] SIGNATURE: Christina Gordillo RN PATIENT NAME: Mark Serrano DATE: July 07, 2018 TIME: 2:11 PM PAGER/CONTACT PHONE: PROGRESS Observed: 07/07/2018 Status: COMPLETED Source: [facility] 1:44 PM CLINIC OTHER CAMPUS REPOSITORY HNO ID: [id number] Author: Uday Jo Service: Hospital Medicine Author [...] PT ED Observed: 07/07/2018 Status: COMPLETED Source: [facility] 1:39 PM CLINIC OTHER CAMPUS REPOSITORY HNO ID: [id number] Author: Dena (Rn) DEYVI Phillip Service: PICC Team Author Type: Registered Nurse Type: Patient Education Filed: 07/07/2018 1:41 PM Note Text: PATIENT EDUCATION TOPIC: PROCEDURE / SURGERY: Procedure/Surgery: PICC Insertion PATIENT NAME: Mark Serrano PATIENT LOCATION: [place] [address]/[place] [address]* READINESS TO LEARN COGNITIVE ABILITY: Alert and [...] Line Book SUPPLEMENTAL MATERIAL PROVIDED TO PATIENT: [facility] PICC information brochure and Catheter Associated Bloodstream Infections Fact sheet REFERRAL (RECOMMENDATION): None Electronically Signed By: Dena Phillip RN UGI W/SBS INCL Observed: 07/07/2018 Status: F Source: [facility] ESOPHAGUS 1:16 PM HEALTH SYSTEM REPOSITORY Performed at [facility] APPROVED BY: Choco Méndez MD EXAM TITLE: UGI W/SBS INCL ESOPHAGUS DATE: 07/07/2018 08:56 COMPARISON: Outside CT study performed 07/06/2018 CLINICAL INDICATION/HISTORY: Abdominal pain, nausea, diarrhea, history of Crohn's disease and prior bowel resections TECHNIQUE: Upper GI and small bowel follow-through. 18 images were obtained. 1.7 minutes of fluoroscopy time utilized. FINDINGS: Initial electric power line examiner film demonstrates a nonspecific bowel gas pattern. [...] syndrome. 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 Intervention: Start NST [...] Laterality Date - COLONOSCOP W/ OR W/O [facility] SPEC Colonoscopy x 4 [...] Resting Metabolic Rate: 1139 Estimated kilocalorie needs: 2057-9420 kilocalories determined by 25-30 kcal/kg Estimated protein [...] 0659 07/07/18 07 - 07/08/18 0659 Shift 2364-7382 2696-5664 5107-3222 24 Hour Total 7913-8900 4146-0860 7026-7148 24 Hour Total I N T A [...] July 07, 2018 TIME: 11:20 AM PAGER: [phone] HISTORY PHYSICAL Observed: 07/07/2018 Status: COMPLETED Source: [facility] 11:10 AM CLINIC OTHER CAMPUS REPOSITORY HNO ID: [id number] Author: Jacque Ferris) DEYVI Meek Service: PICC Team Author Type: Registered Nurse Type: HANDP Filed: 07/07/2018 11:11 AM Note Text: PICC/VASCULAR ACCESS PROGRESS NOTE SERVICE DATE: 07/07/2018 SERVICE TIME: [address] Gomez concerning GFR=32. OK to [address] PICC. SIGNATURE: Jacque Meek RN PATIENT NAME: Mark Serrano DATE: July 07, 2018 TIME: 11:10 AM PAGER/CONTACT #: [phone] CONSULT PROG Observed: 07/07/2018 Status: COMPLETED Source: [facility] 7:00 AM CLINIC OTHER CAMPUS REPOSITORY HNO ID: [id number] Author: Maryanne Castillo Service: General Surgery Author [...] Date 07/06/18699 - 07/07/1865807/07/18699 - 07/08/1859 Shift 4724-9683 1469-7851 8659-9487 24 Hour Total 3191-4055 4634-6768 6639-2655 24 Hour Total I N T A [...] Hypertension - COPD (chronic obstructive pulmonary disease) ([facility]) 68 year old male with SBO, significant [...] please page [phone] if in ICU or [phone] if on RNF. HEMOGRAM Collected: 07/07/2018 Status: F Source: [facility] 4:10 AM HEALTH SYSTEM REPOSITORY TYPE CODE [...] MPV 10.7 Performed By: #### CBC1 #### [facility] [address] [place], [place] [address] BASIC PANEL Collected: 07/07/2018 Status: F Source: [facility] 4:10 AM HEALTH SYSTEM REPOSITORY TYPE CODE [...] Gap 12 Performed By: #### P8 #### [place] [address] MAGNESIUM BLOOD Collected: 07/07/2018 Status: F Source: [facility] 4:10 AM HEALTH SYSTEM REPOSITORY TYPE CODE TESTS RESULT OUT OF REFERENCE UNITS RANGE LAB MAG(LOINC) 1.6-2.6 mg/dL Magnesium Blood 1.7 Performed By: #### MAG #### [place] [address] PHOSPHORUS BLOOD Collected: 07/07/2018 Status: F Source: [facility] 4:10 AM HEALTH SYSTEM REPOSITORY TYPE CODE TESTS RESULT OUT OF REFERENCE UNITS RANGE LAB PHOS(LOINC 2.5-4.9 mg/dL ) Phosphorus Blood 4.4 Performed By: #### PHOS #### [place] [address] NURSING PROG Observed: 07/07/2018 Status: COMPLETED Source: [facility] 2:37 AM CLINIC OTHER CAMPUS REPOSITORY O ID: [id number] Author: Marva (Rn) Jose Juan RN Service: (none) Author Type: Registered Nurse Type: Nursing Progress Note Filed: 07/07/2018 2:39 AM Note Text: Nursing Progress Note Patient Name: Mark Serrano Patient Location: [id number]/[id number]* Daily Note: ZIGZAG STITCHER Priti ordered to advance NG tube approx 1in. Pt tolerated well. Priti also notified of pts NG output of 700. Will continue to monitor This note was completed by: Marva Manzano RN CHEST 1 VIEW Observed: 07/07/2018 Status: F Source: [facility] 1:37 AM HEALTH SYSTEM REPOSITORY Performed at [facility] APPROVED BY: LETI STANTON MD EXAM: [...] unremarkable. CONSULT Observed: 07/07/2018 Status: COMPLETED Source: [facility] 12:49 AM CLINIC OTHER CAMPUS REPOSITORY HNO ID: [id number] Author: Sg Guerrero Service: General Surgery Author [...] Laterality Date - COLONOSCOP W/ OR W/O [facility] SPEC Colonoscopy x 4 [...] H PRN ipratropium-albuterol 3 mL nebulizer solution (NOTIKB) 3 mL INHALATION q 4 H PRN [...] questions or concerns Mon-Fri 6a-5p please page [phone]. After 5pm and on Weekends and Holidays, please page [phone] if in ICU or [phone] if on RNF. Discussed with Dr. Yaneli [...] will try to obtain these from his [facility]. Sg Guerrero MD 1:09 PM 07/05/18 EKG (AK,AV,EU,FV,HL,GILES,MM,SP) Observed: Status: F Source: [facility] 07/07/2018 12:29 [facility] OTHER [facility] REPOSITORY NAME : MARK SERRANO PID : [id number] : 1950 Gender : Male Race : ORD : [id number] Procedure Date : Jul 07 2018 00:29 [...] ms QTC Calculation(Bezet) : 429 ms P Kilbourne : 86 degrees R Kilbourne : -72 degrees T Kilbourne : 75 degrees Test Reason : Check QT Location : 71 : 7100 7106 Overread By : MD Paniagua Vinay Editted By : MD Paniagua Vinay Referred By : PRITI MEAD Acquired by : Leonor Glover HISTORY PHYSICAL Observed: 07/07/2018 Status: COMPLETED Source: [facility] 12:02 AM [facility] REPOSITORY HNO ID: [id number] Author: Priti (Vianney) GOKUL Mead.VIANNEY Service: Hospital Medicine Author Type: Nurse Practitioner Type: HANDP Filed: 07/07/2018 12:48 AM Note Text: Attestation signed by Aj Pro at 07/07/2018 12:56 AM Seen and examined by me. Agree with HEALTHCARE BUSINESS ANALYST. The patient will SBO likely needs to [...] After 7pm, please call cross cover pager #[phone] Subjective CHIEF COMPLAINT: Abdominal Pain HPI: This [...] Laterality Date - COLONOSCOP W/ OR W/O [facility] SPEC Colonoscopy x 4 [...] EMERGENCY DEPARTMENT Observed: 07/06/2018 Status: F Source: [place] SUMMARY 11:44 PM [facility] REPOSITORY [facility] Medical Records Department [address] [place] [address] Emergency Department Summary 07/06/18 1642 MR#: [id number] Acct: [id number] Name: MARK SERRANO Rep #: [id number] : 1950 68 From: Channing Manuel PCP: [...] Crohn's disease also. Surgery was done in [place]. Does not follow general surgeon. No other [...] tertiary center secondary to this. Spoke with [facility] excepted to surface Dr. Santos. Patient creatinine is chronic, however this is slightly more elevated than previous range from 1.7-2.0. He is given IV fluids. Treatment Plan: [] Disposition: Transfer [facility] Impression: 1. Abdominal pain 2. Small bowel obstruction 3. Possible SMA syndrome 4. Chronic kidney disease This note was generated with WhoisEDIation software. It may contain incorrect words, spelling, and punctuation that were not noted in review of the chart prior to signing ED Disposition - Plan for ED Patient: Disposition: [facility] Chief Complaint: Abd Pain Diagnosis: CKD (chronic kidney disease) stage 4, GFR 15-29 ml/min, Small bowel obstruction, Possible SMA syndrome Referrals: Jalen Rodríguez Chi, MD [Primary Care Provider] - What to do if you have Problems For any increased pain, shortness of breath, bleeding, nausea or vomiting, chest pain, or any unexpected problems, contact your Primary Care Provider. Call [facility] ([phone]) or report to the closest Emergency Room. Call 911 if necessary. 07/06/18 2344 <Electronically signed by Channing Manuel> Date Channing Manuel Cosigner Signature (If Indicated): Date CC: Jalen Rodríguez MD ABDOMEN SINGLE VIEW Observed: 07/06/2018 Status: F Source: [place] (PORTABLE) 6:43 PM [facility] REPOSITORY [facility] Imaging Services [address] [place] [id number] Abdomen Single View (Portable) MR#: [id number] Acct: [id number] Name: MARK SERRANO Rep #: [id number] : 1950 M 68 From: Shanna Augillon MD PCP: Jalen Rodríguez MD, Chi Status: REG ER Study: Abdomen Single View (Portable) Date of Exam: 07/06/18 Exam# [id number] Ordering Dr: Channing Ruiz DO STUDY: X-RAY [...] , CC: Jalen Rodríguez MD; Channing Ruiz Side Panel Hanger: Signed LACTIC ACID Collected: 07/06/2018 Status: F Source: [place] 6:35 PM [facility] REPOSITORY TYPE CODE TESTS RESULT OUT OF RANGE REFERENCE UNITS LAB L503.6005 0.4-2.0 mmol/L Normal LACTIC ACID 1.0 Performed By: #### L503.6005 #### [facility] [address] [facility] [place], [address] ABDOMEN/PELVIS WITHOUT Observed: 07/06/2018 Status: F Source: [place] CONT 4:42 PM [facility] REPOSITORY [facility] Imaging Services [address] [place] [address] Abdomen/Pelvis without Cont MR#: [id number] Acct: [id number] Name: MARK SERRANO Rep #: [id number] : 1950 M 68 From: Shanna Aguillon MD PCP: Jalen Rodríguez MD, Chi Status: REG ER Study: Abdomen/Pelvis without Cont Date of Exam: 07/06/18 Exam# [id number] Ordering Dr: Channing Ruiz DO STUDY: CT [...] , CC: Jalen Rodríguez MD; Channing Ruiz Side Panel Hanger: Signed CBC W/DIFF, AUTOMATED Collected: 07/06/2018 Status: F Source: [place] 4:37 PM [facility] REPOSITORY TYPE CODE TESTS RESULT OUT OF [...] Lymph 0.63 Performed By: #### L100.0100 #### [facility] [address] [place], [address] COMPREHENSIVE METABOLIC Collected: 07/06/2018 Status: F Source: [facility] 4:37 PM [facility] REPOSITORY TYPE CODE TESTS RESULT OUT OF [...] 10 Performed By: #### L500.4050, L501.2450 #### [facility] [address] [place], [address] LIPASE Collected: 07/06/2018 Status: F Source: [place] 4:37 PM [facility] REPOSITORY TYPE CODE TESTS RESULT OUT OF RANGE REFERENCE UNITS LAB L501.2450 73-393 U/L Normal LIPASE 390 Performed By: #### L500.4050, L501.2450 #### [facility] [address] [place], [address] HOSP Observed: 07/06/2018 Status: COMPLETED Source: [place] 12:00 AM CLINIC OTHER CAMPUS REPOSITORY Patient:Mark Serrano MRN: <[id number]> Height:5' 5(1.651 m) Weight:95 lb 3.8 oz [...] acetaminophen 650 mg suppository (TYLENOL) phenol 1 [facility] (CHLORASEPTIC) fluticasone-vilanterol 100-25 mcg/dose 1 Inhalation (BREO [...] Hypertension [I10] COPD (chronic obstructive pulmonary disease) ([facility]) [J44.9] Bowel obstruction ([facility]) [K56.609] SBO (small bowel obstruction) ([facility]) [K56.609] Nicotine use disorder, F17.2 [F17.200] Vomiting [R11.10] Allergies: Penicillin Date Verified: 07/11/18 Lab Values Lab Value Units Date High Low POTA* 3.9 mEq/L 07/11/2018 5.1 3.5 VALENTÍN* 31.8 % 07/08/2018 51.0 40.1 Progress Notes (): Priti Mead, VIANNEY, ANIMAL TECH.VIANNEY 07/07/2018 12:48 AM Attested Attestation signed by Aj Pro at 07/07/2018 12:56 AM Seen and examined by me. Agree with HEALTHCARE BUSINESS ANALYST. The patient will SBO likely needs to [...] After 7pm, please call cross cover pager #[phone] Subjective CHIEF COMPLAINT: Abdominal Pain HPI: This [...] Laterality Date - COLONOSCOP W/ OR W/O [facility] SPEC Colonoscopy x 4 [...] Laterality Date - COLONOSCOP W/ OR W/O [facility] SPEC Colonoscopy x 4 [...] questions or concerns Mon-Fri 6a-5p please page [phone]. After 5pm and on Weekends and Holidays, [...] will try to obtain these from his [facility]. Sg Guerrero MD 1:09 PM 07/05/18 Previous Version Marva Manzano RN, RN 07/07/2018 2:39 AM Signed Nursing Progress Note Patient Name: Mark Serrano Patient Location: [id number]/[id number]* Daily Note: VIANNEY Russell ordered to advance NG tube approx 1in. Pt tolerated well. Priti also notified of pts NG output of 700. Will continue to monitor This note was completed by: DEYVI Birch, ANIMAL TECH.ZIGZAG STITCHER 07/07/2018 1:28 PM Addendum Emergency General Surgery [...] 0659 07/07/18 07 - 07/08/18 0659 Shift 9250-9574 3244-7224 5071-4624 24 Hour Total 9809-8106 0528-3683 4451-9896 24 Hour Total I N T A [...] (HCC) 07/07/2018 - SBO (small bowel obstruction) ([facility]) 07/07/2018 - Hypertension - COPD (chronic obstructive [...] questions or concerns Mon-Fri 6a-5p please page [phone]. After 5pm and on Weekends and Holidays, please page [phone] if in ICU or [phone] if on RNF. Previous Version Jacque Meek RN, RN 07/07/2018 11:11 AM Signed PICC/VASCULAR ACCESS PROGRESS NOTE SERVICE DATE: 07/07/2018 SERVICE TIME: [address] Gomez concerning GFR=32. OK [address] PICC. 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 Intervention: Start NST [...] Laterality Date - COLONOSCOP W/ OR W/O [facility] SPEC Colonoscopy x 4 [...] Resting Metabolic Rate: 1139 Estimated kilocalorie needs: 0730-7643 kilocalories determined by 25-30 kcal/kg Estimated protein [...] 07/06/18699 - 07/07/1865807/07/18699 - 07/08/18 0659 Shift 1441-8715 4397-3099 2949-0327 24 Hour Total 3445-9561 3650-2173 6593-5199 24 Hour Total I N T A [...] July 07, 2018 TIME: 11:20 AM PAGER: [phone] Dena Phillip, RN, RN 07/07/2018 1:41 PM Signed PATIENT EDUCATION TOPIC: PROCEDURE / SURGERY: Procedure/Surgery: PICC Insertion PATIENT NAME: Mark Serrano PATIENT LOCATION: [place] [address] [address]* READINESS TO LEARN COGNITIVE ABILITY: Alert and [...] Line Book SUPPLEMENTAL MATERIAL PROVIDED TO PATIENT: [facility] PICC information brochure and Catheter Associated Bloodstream [...] PLACEMENT: Sterile PRIMARY PROCEDURALIST: Christina Gordillo RN MEDICAL RECORD LIBRARIANS TEACHER: Dena Phillip RN PRE-PROCEDURE REVIEW ALLERGIES Allergen [...] Completed Christina Gordillo RN CATHETER PLACEMENT Brand: mobiManage Lot: [id number] Number of Lumens: 2 Type of PICC: Power Injectable PICC Lumen Size: 5 Ghanaian PLACEMENT TECHNIQUE Lidocaine: Yes. Strength: 1% Volume [...] wire Patient Education Materials: Placed in chart [facility] Central Line Insertion Checklist QUESTIONS or PROBLEMS: Call [phone] SIGNATURE: Christina Gordillo RN PATIENT NAME: Mark [...] Laterality Date - COLONOSCOP W/ OR W/O [facility] SPEC Colonoscopy x 4 [...] possibility of ?SMA syndrome CT abd/pelvis at [facility]: Distended stomach and proximal duodenum with [...] 07, 2018 TIME: 2:51 PM PAGER/CONTACT #: [phone] Mojgan Bolden, ANIMAL TECH.FRENCH FOLDER 07/08/2018 10:55 AM Signed Emergency General Surgery [...] 07/07/18699 - 07/08/1865807/08/18699 - 07/09/18 0659 Shift 2885-2952 7737-6240 1676-6416 24 Hour Total 7875-7243 4710-8675 6547-9523 24 Hour Total I N T A [...] (HCC) 07/07/2018 - SBO (small bowel obstruction) ([facility]) 07/07/2018 - Nicotine use disorder, F17.2 07/07/2018 - Hypertension - COPD (chronic obstructive pulmonary disease) ([facility]) 68 year old male with SBO, significant weight loss/malnutrition, concern for SMA syndrome - Medical management per primary - Cont NG LIWS - Continue TPN - No acute surgical intervention at this point - May need EGD to rule out neoplasm, Feeding tube may be needed 0800 Assessment and plan discussed with attending: Dr. Guerrero. SIGNATURE: Mojgan Bolden APRN.FRENCH FOLDER PATIENT NAME: Mark Serrano DATE: July 08, 2018 TIME: 6:35 AM CONTACT: [id number] Emergency General Surgery Service Pager: For questions or concerns Mon-Fri 6a-5p please page [phone]. After 5pm and on Weekends and Holidays, please page [phone]. 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 Intervention: Start [...] 0530 CRP 0.31* Maris Patrick, RD, LD, [facility] Pager: [phone] Increments: 3 Uday Jo MD 07/08/2018 12:26 [...] To Be Determined;Home Care Order;OT/PT Evaluation MEDICAL: Patient/Process Development Technician Stated Goals: To improve my functional status To return home to life as it was Health Insurance: MEDICARE A AND B None Health Issues Impacting Discharge Plan: None Last Admission Date: none Is this Within the Past 30 days? No Advance Directive: Current Advance Directive: Health Care Power of It Help Desk Manager;Living Will In Chart: No Architectural Representative Attempted to Assist with AD Completion: No [...] Treatments Has the Patient Been in a [place] [facility] Facility in the Past 30 days? 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 No needs at this time. Currently on TPN and LIWS with corpak placed. No weekend DC planned. Will follow for any transitional needs SIGNATURE: Lalita Ritter RN PATIENT NAME: Mark Srerano DATE: July 08, 2018 TIME: 3:43 PM PAGER/CONTACT #: [phone] Vera Dhillon RN, RN 07/08/2018 4:00 PM Signed Patient stating that zofran has not been helping his nausea. NG with 250 out from 7a-3p. Now with blood tinged drainage from NG. Surgery paged regarding these findings. Mojgan Bolden, ANIMAL TECH.FRENCH FOLDER 07/09/2018 10:05 AM Signed Emergency General Surgery [...] 07/08/18699 - 07/09/1865807/09/18699 - 07/10/18 0659 Shift 2182-7783 1391-6285 4678-7770 24 Hour Total 6309-3376 4266-4683 3814-2507 24 Hour Total I N T A K E TPN/PPN 800 800 TPN 800 800 Shift Total 800 800 O U T P U T Urine 175 100 275 Void (ml) 175 100 275 Tubes 593 180 5210 Output (GI Feed/Drain 07/06/18 2230 Admission to Hospital Nasogastric Right Naris) 087 972 4769 Shift Total 425 159 385 8019 Weight (kg) 42.8 43.5 43.5 43.5 43.5 [...] Hypertension - COPD (chronic obstructive pulmonary disease) ([facility]) 68 year old male with SBO, significant weight loss/malnutrition, concern for SMA syndrome ? - Medical management per primary - Cont NG LIWS - Continue TPN - No acute surgical intervention at this point - Consult GI for EGD to rule out neoplasm, [place] Feeding tube may be needed ? 0810 Assessment and plan discussed with attending: Dr. Guerrero. ? SIGNATURE: Mojgan Bolden, ANIMAL TECH.FRENCH FOLDER PATIENT NAME: Mark Serrano DATE: July 09, 2018 TIME: 6:24 AM CONTACT: [id number] Emergency General Surgery Service Pager: For questions or concerns Mon-Fri 6a-5p please page [phone]. After 5pm and on Weekends and Holidays, please page [phone]. Uday Jo MD 07/09/2018 9:52 AM Signed [...] 1. Persistent high NG output 2. 3. [place]: Nausea is better; does not like NG tube Current Facility-Administered Medications: phenol 1 [facility] (CHLORASEPTIC) [facility] MUCOUS MEMBRANE (TOPICAL MOUTH AND THROAT) q 2 H PRN Uday Valluri 1 [facility] at 07/09/18 0851 Parenteral Nutrition - Adult [...] SUBCUTANEOUS q 12 H Priti (Vianney) APRN. MarkZIGZAG STITCHER 5,000 Units at 07/09/18 0858 0.9% NaCl 3-5 mL 3-5 mL INTRAVENOUS q 12 H Priti (Vianney) APRN. MarkZIGZAG STITCHER 3 mL at 07/07/18 0037 morphine 1-2 mg injection 1-2 mg INTRAVENOUS q 4 H PRN Priti (Vianney) APRN. MarkZIGZAG STITCHER 1 mg at 07/07/18 0037 ipratropium-albuterol 3 mL nebulizer solution (DUONEB) 3 mL INHALATION q 4 H PRN Priti (Vianney) APRN. MarkZIGZAG STITCHER 3 mL at 07/08/18 1556 pantoprazole 40 mg injection (PROTONIX) 40 mg INTRAVENOUS DAILY (6 AM) Gerson Hurd) Dade 40 mg at 07/09/18 0503 0.9% NaCl [...] Serrano DATE: 07/09/18 TIME: 3:06 PM MOBILE: [phone] Mojgan Bolden, ANIMAL TECH.FRENCH FOLDER 07/10/2018 1:15 PM Signed Emergency General Surgery [...] 07/09/18699 - 07/10/1865807/10/18699 - 07/11/18 0659 Shift 8635-1475 0090-1680 0135-5854 24 Hour Total 0387-0750 2768-9528 4222-3505 24 Hour Total I N T A K E TPN/PPN 800 800 TPN 800 800 Shift Total 800 800 O U T P U T Urine 650 1 651 Void (ml) 650 650 Urine Not Saved 1 1 Tubes 007 860 8261 Output (GI Feed/Drain 07/06/18 2230 Admission to Hospital Nasogastric Right Naris) 216 187 2482 Shift Total 650 874 950 5599 Weight (kg) 43.5 44 44 44 44 44 44 44 MEDICATIONS Current Facility-Administered Medications: phenol 1 [facility] (CHLORASEPTIC) 1 [facility] MUCOUS MEMBRANE (TOPICAL MOUTH AND THROAT) q [...] (HCC) 07/07/2018 - SBO (small bowel obstruction) ([facility]) 07/07/2018 - Nicotine use disorder, F17.2 07/07/2018 - Hypertension - COPD (chronic obstructive pulmonary disease) ([facility]) 68 year old male with SBO, significant [...] - CT chest ? SIGNATURE: Mojgan Bolden APRN.FRENCH FOLDER PATIENT NAME: Mark Serrano DATE: July 10, 2018 TIME: 6:20 AM CONTACT: [id number] Emergency General Surgery Service Pager: For questions or concerns Mon-Wed 6a-5p please page [phone]. After 5pm and on Weekends and Holidays, please page [phone]. Barbara Baldwin DO 07/10/2018 10:31 PM Signed INTERNAL MEDICINE PROGRESS NOTE SERVICE DATE: 07/10/2018 SERVICE TIME: 6:05 PM ADMITTING PHYSICIAN: Dalia Santos Subjective CHIEF COMPLAINT: f/u medical issues listed below Current Facility-Administered Medications: Parenteral Nutrition - Adult INTRAVENOUS ONCE TPN (1800 START) iv contrast (radiology procedure) INTRAVENOUS DIRECTED PRN phenol 1 [facility] (CHLORASEPTIC) 1 [facility] MUCOUS MEMBRANE (TOPICAL MOUTH AND THROAT) q [...] UPPER GI W SMALL BOWEL SERIES (Order #[id number]) on 07/07/2018 Assessment/Plan Possible SMA syndrome/obstruction PLAN: [...] 11, 2018 TIME: 8:44 AM PAGER/CONTACT #: [phone] Jose Juan Martinez MD 07/11/2018 9:04 AM [...] Laterality Date - COLONOSCOP W/ OR W/O [facility] SPEC Colonoscopy x 4 [...] (radiology procedure) INTRAVENOUS DIRECTED PRN Mojgan Ring (Nail Polish Brush Machine Feeder) Yuan [MAR Hold due to Transfer] acetaminophen 650 mg suppository (TYLENOL) 650 mg RECTAL q 4 H PRN Barbara Baldwin [MAR Hold due to Transfer] phenol 1 [facility] (CHLORASEPTIC) 1 [facility] MUCOUS MEMBRANE (TOPICAL MOUTH AND THROAT) q 2 H PRN Uday Valluri 1 [facility] at 07/09/18 0851 [MAR Hold due to [...] 5,000 Units SUBCUTANEOUS q 12 H Priti (Refractory Grinder Operator) APRN. MarkZIGZAG STITCHER 5,000 Units at 07/10/18 192 [MAR Hold due to Transfer] 0.9% NaCl 3-5 mL 3-5 mL INTRAVENOUS q 12 H Priti (Vianney) APRN. MarkZIGZAG STITCHER 3 mL at 07/07/18 0037 [MAR Hold due to Transfer] morphine 1-2 mg injection 1-2 mg INTRAVENOUS q 4 H PRN Priti (Vianney) APRN. MarkZIGZAG STITCHER 1 mg at 07/07/18 0037 [MAR Hold due to Transfer] ipratropium-albuterol 3 mL nebulizer solution (DUONEB) 3 mL INHALATION q 4 H PRN Priti (Vianney) APRN. MarkZIGZAG STITCHER 3 mL at 07/08/18 1556 [MAR Hold due to Transfer] pantoprazole 40 mg injection (PROTONIX) 40 mg INTRAVENOUS DAILY (6 AM) Greson Hurd) Dade 40 mg at 07/11/18 0511 [MAR Hold [...] July 11, 2018 TIME: 9:03 AM CSN: [id number] Felicitas Gates RN, RN 07/11/2018 9:10 AM [...] 06/30/2018 Status: F Source: [place] 11:05 AM [facility] REPOSITORY TYPE CODE TESTS RESULT OUT OF [...] COMMENT SCANNED Performed By: #### L100.0100 #### [facility] [address] [facility]. [place], [place], [address] COMPREHENSIVE METABOLIC Collected: 06/30/2018 Status: F Source: [facility] 11:05 AM [facility] REPOSITORY TYPE CODE TESTS RESULT OUT OF [...] 8 Performed By: #### L500.4050, L501.9520 #### [facility] [address] [facility]. [place], [place], [address] THYROID STIM HORMONE Collected: 06/30/2018 Status: F Source: [place] (TSH) 11:05 AM [facility] REPOSITORY TYPE CODE TESTS RESULT OUT OF RANGE REFERENCE UNITS LAB L501.9520 0.358-3.74 uIU/mL Normal TSH 0.90 Performed By: #### L500.4050, L501.9520 #### [facility] [address] [facility] [place], [place], [address] VITAMIN D,25 HYDROXY Collected: 06/30/2018 Status: F Source: [place] 11:05 AM [facility] REPOSITORY TYPE CODE TESTS RESULT OUT OF REFERENCE UNITS RANGE LAB L506.1000 29.95-100.01 ng/mL Low Vitamin D 18.0 25-OH Result Comment: Vitamin D 25(OH) Status Range Deficiency <20 ng/mL (50nmol/L) Insuffciency 20 - 30 ng/mL (50 - 75 nmol/L) Sufficiency 30 - 100 ng/mL (75 - 250 nmol/L) Toxicity >100 ng/mL (>250 nmol/L) Performed By: #### L506.1000 #### [facility] [address] [place], [address] PULMONARY VISIT REPORT Observed: 06/23/2018 Status: F Source: [place] 12:28 PM [facility] REPOSITORY [facility] [address] [place] [address] OFFICE VISIT Date of Service: 06/23/18 MR#: [id number] Acct: [id number] Name: MARK SERRANO Rep #: [id number] : 1950 Provider: Delma Frey Age/Sex: 68/M Location: [facility] Status: Signed Assessment AND Plan 1. 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 Currently, he is using Symbicort 2 puffs [...] Method room air Intake Visit Reasons: COPD Weight Recorder Required: No Accompanied by: Self Allergies Penicillins [...] insufficiency (Chronic) Atherosclerosis of coronary artery of [place] heart without angina pectoris (Chronic) Nicotine abuse [...] Admin Location Lot Number Expiration Date NDC Pourer Off 0.5 mL IM Left Deltoid [id number] 02/21/19 94142-544-21 SEQIRUS VIS Given Date VIS Publication Date [...] Status: F Source: [place] REPORT 3:27 PM [facility] REPOSITORY [facility] [address] [place] [address] OFFICE VISIT Date of Service: 06/16/18 MR#: [id number] Acct: [id number] Name: MARK SERRANO Rep #: [id number] : 1950 Provider: Aj Jimenez MD Age/Sex: 68/M Location: [facility] Status: Signed HPI HPI Chief Complaint: Routine f/u Details: Mr. Serrano is a very pleasant 68-year-old gentleman with a history of Crohn's disease, previous smoker who quit in June 2016, history of GI bleeding, history of kidney stones, stage IV chronic renal sufficiency with a creatinine clearance of 34, who presented initially to [facility] with substernal chest pain and non-ST elevation [...] developed lower GI bleeding and presented to [facility] on 01/18/15. At that time he was emergently fluid resuscitated and transferred to [facility] where he underwent an EGD 2, [...] smoking in June 2016. He presented to [facility] ER on 08/12/16 with abdominal pain [...] Pressure 198/76 Intake Visit Reasons: 6 M Weight Recorder Required: No Is patient in pain?: No [...] #1 inhaler 12/22/17 [Rx Confirmed 06/16/18] Tiotropium Premium [Spiriva 18 MCG] 1 puff INHALATION DAILY #1 inhaler 12/22/17 [Rx Confirmed 06/16/18] PFSH Medical History Non-rheumatic tricuspid valve insufficiency (Chronic) Atherosclerosis of coronary artery of [place] heart without angina pectoris (Chronic) Nicotine abuse [...] Plan 1. Atherosclerosis of coronary artery of [place] heart without angina pectoris I25.10 Nonobstructive CAD [...] 3 Diagnoses Atherosclerosis of coronary artery of [place] heart without angina pectoris I25.10 CKD (chronic kidney disease) stage 4, GFR 15-29 ml/min N18.4 COPD with acute exacerbation J44.1 Coding Level of Care Code Off vis,est,level 3 Diagnoses Atherosclerosis of coronary artery of [place] heart without angina pectoris I25.10 CKD (chronic kidney disease) stage 4, GFR 15-29 ml/min N18.4 COPD with acute exacerbation J44.1 06/16/18 1527 <Electronically signed by Aj Jimenez MD> Date Aj Jimenez MD Cosigner Signature: Date (if applicable) CC: Jalen Rodríguez MD CBC W/DIFF, AUTOMATED Collected: 12/30/2017 Status: F Source: [place] 12:04 PM [facility] REPOSITORY TYPE CODE TESTS RESULT OUT OF [...] Lymph 0.72 Performed By: #### L100.0100 #### [facility] [address] [place], [address] COMPREHENSIVE METABOLIC Collected: 12/30/2017 Status: F [facility] REPOSITORY TYPE CODE TESTS RESULT OUT OF [...] Performed By: #### L500.4050, L501.9520, L501.9910 #### [facility] [address] [place], [address] THYROID STIM HORMONE Collected: 12/30/2017 Status: F Source: [place] (TSH) 12:04 PM [facility] REPOSITORY TYPE CODE TESTS RESULT OUT OF RANGE REFERENCE UNITS LAB L501.9520 0.358-3.74 uIU/mL Normal TSH 1.66 Performed By: #### L500.4050, L501.9520, L501.9910 #### [facility] [address] [facility] [place], [address] PSA,TOTAL - ANNUAL Collected: 12/30/2017 Status: F Source: [place] SCREEN 12:04 PM [facility] REPOSITORY TYPE CODE TESTS RESULT OUT OF RANGE REFERENCE UNITS LAB L501.9910 0.00-4.00 ng/mL Normal PSA,TOT 1.27 SCREEN Result Comment: This test was performed using the TPSA assay method for the INRFOOD chemistry system. Values obtained with different assay methods cannot be used interchangably. When changing PSA assays in the course of monitoring a patient, additional sequential testing should be carried out to confirm baseline values. Performed By: #### L500.4050, L501.9520, L501.9910 #### [facility] [address] [place], [place], [address] HEPATITIS C ANTIBODIES Collected: 12/30/2017 Status: F Source: [place] 12:04 PM [facility] REPOSITORY TYPE CODE TESTS RESULT OUT OF RANGE REFERENCE UNITS LAB L3100.0650 0.0-0.9 s/co ratio Normal HEP C AB <0.1 Result Comment: Negative: < 0.8 Indeterminate: 0.8 - 0.9 Positive: > 0.9 The CDC recommends that a positive HCV antibody result be followed up with a HCV Nucleic Acid Amplification test (189575). Performed at: - [facility] [id number] Automat Watcher: Boone Wong PhD, Phone: [phone] Performed By: #### L3100.0625 #### [facility] (refer to report for specific site) refer to report for address and phone number 12 LEAD ELECTROCARDIOGRAM Observed: 12/22/2017 Status: F Source: [place] 1:45 PM [facility] REPOSITORY [facility] Cardiovascular Services [address] [place] [address] 12 Lead EKG 12/20/17 0325 MR#: [id number] Acct: [id number] Name: MARK SERRANO Rep #: [id number] : 1950 67 From: Robert Campbell MD [...] ECG Confirmed by ROBERT CAMPBELL MD ([id number]), online content editor CRISTO SANTOS ([id number]) on 12/22/2017 1:45:08 PM Referred By: Aj Jimenez Confirmed By:ROBERT CAMPBELL MD 12/22/17 1345 Date Robert Campbell MD CC: Leti Lopez MD; Jalen Rodríguez MD Signed DISCHARGE SUMMARY Observed: 12/22/2017 Status: F Source: [place] 7:31 AM [facility] REPOSITORY [facility] Medical Records Department [address] [place] [address] Discharge Summary 12/22/17 7430 MR#: [id number] Acct: [id number] Name: MARK SERRANO Rep #: [id number] : 1950 67 From: Dalia Roberson MD PCP: Marcos ABRAHAM,Jalen Mary Status: ADM IN Y Location: ICU [id number] Discharge Date and Diagnosis - Problem List [...] insufficiency (Chronic) Atherosclerosis of coronary artery of [place] heart without angina pectoris (Chronic) Nicotine abuse (Chronic) Hypertension (Chronic) COLD (chronic obstructive lung disease) (Chronic) CKD (chronic kidney disease) stage 4, GFR 15-29 ml/min (Chronic) Following with Dr. [facility] Course and Treatment Imaging Results: [...] mg PO UD #30 tab 12/22/17 Tiotropium Premium [Spiriva 18 MCG] 1 puff INHALATION DAILY #1 inhaler 12/22/17 Following Prescrptions Were Given to Patient: Budesonide/Formoterol 160/4.5 [Symbicort 160/4.5 Mcg Inhaler (SP)] 1 puff INHALATION DAILY #1 inhaler Levofloxacin [Levaquin] 250 mg PO DAILY@0600 #5 tab Prednisone 10 mg PO UD #30 tab Tiotropium Premium [Spiriva 18 MCG] 1 puff INHALATION DAILY [...] applicable Code Visit Inpatient E AND M: 43333 Disch Hosp 12/22/17 0731 <Electronically signed by Dalia Roberson MD> Date Dalia Roberson MD Cosigner Signature (if applicable): Date CC: Dalia Roberson MD; Jalen Rodríguez MD Signed DISCHARGE INSTRUCTION Observed: 12/22/2017 Status: F Source: [place] 7:30 AM [facility] REPOSITORY [facility] Medical Records Department [address] [place] [address] Instructions for Home/Discharge Instructions 12/22/17 0728 MR#: [id number] Acct: [id number] Name: MARK SERRANO Rep #: [id number] : 1950 67 From: Dalia Roberson MD [...] mg PO UD #30 tab 12/22/17 Tiotropium Premium [Spiriva 18 MCG] 1 puff INHALATION DAILY #1 inhaler 12/22/17 The following prescriptions were given: Budesonide/Formoterol 160/4.5 [Symbicort 160/4.5 Mcg Inhaler (SP)] 1 puff INHALATION DAILY #1 inhaler Levofloxacin [Levaquin] 250 mg PO DAILY@0600 #5 tab Prednisone 10 mg PO UD #30 tab Tiotropium Premium [Spiriva 18 MCG] 1 puff INHALATION DAILY [...] F Source: [place] NO DIFF 5:50 AM [facility] REPOSITORY TYPE CODE TESTS RESULT OUT OF [...] MPV 11.1 Performed By: #### L100.0500 #### [facility] [address] [place], [place], [address] BASIC METABOLIC Collected: 12/22/2017 Status: F Source: [place] PROFILE (BMP) 5:50 AM [facility] REPOSITORY TYPE CODE TESTS RESULT OUT OF [...] 8 Performed By: #### L500.2500, L501.5200 #### [facility] [address] [facility] [place], [place], [address] MAGNESIUM Collected: 12/22/2017 Status: F Source: [place] 5:50 AM [facility] REPOSITORY TYPE CODE TESTS RESULT OUT OF RANGE REFERENCE UNITS LAB L501.5200 1.6-2.6 mg/dL Normal MG 2.0 Result Comment: Please note revised Magnesium reference range effective 2017. Performed By: #### L500.2500, L501.5200 #### [facility] [address] [facility] [address] [place], [place], [id number] CBC-COMPLETE BLOOD CNT Collected: 12/21/2017 Status: F Source: [place] NO DIFF 9:30 AM [facility] REPOSITORY TYPE CODE TESTS RESULT OUT OF [...] MPV 10.8 Performed By: #### L100.0500 #### [facility] [address] [place], [address] BASIC METABOLIC Collected: 12/21/2017 Status: F Source: [place] PROFILE ([facility]) 9:30 AM [facility] REPOSITORY TYPE CODE TESTS RESULT OUT OF [...] 10 Performed By: #### L500.2500, L501.5200 #### [facility] [address] [facility] [place], [address] MAGNESIUM Collected: 12/21/2017 Status: F Source: [place] 9:30 AM [facility] REPOSITORY TYPE CODE TESTS RESULT OUT OF RANGE REFERENCE UNITS LAB L501.5200 1.6-2.6 mg/dL Normal MG 1.8 Result Comment: Please note revised Magnesium reference range effective 2017. Performed By: #### L500.2500, L501.5200 #### [facility] [address] [facility] [place], [address] CONSULTATION Observed: 12/20/2017 Status: F Source: [place] 2:31 PM [facility] REPOSITORY [facility] Medical Records Department [address] [place] [address] Consultation 12/20/17 0647 MR#: [id number] Acct: [id number] Name: MARK SERRANO Birdie Rep #: [id number] : 1950 67 From: Jose D Wolff DO PCP: Marcos ABRAHAM,[facility] Status: ADM IN Location: [...] insufficiency (Chronic) Atherosclerosis of coronary artery of [place] heart without angina pectoris (Chronic) Nicotine abuse [...] - Nasopharyngeal Influenza Types A,B Direct FA ([facility]) - Final Clinical Impression(s) from Imaging Studies [...] as indicated. This note was generated with [employer]is[employer]ation software. It may contain incorrect words, spelling, and punctuation that were not noted in checking the note before signing. DISPOSITION: The patient is medically stable for transfer out of the intensive care unit. Code Visit Inpatient E AND M: 29331 Init Hosp L3 12/20/17 1431 <Electronically signed by Jose D Wolff DO> Date Jose D Wolff DO Cosigner Signature (if applicable): Date CC: Jose D Wolff D.O.; Jalen Rodríguez MD Signed LACTIC ACID Collected: 12/20/2017 Status: F Source: [place] 7:30 AM [facility] REPOSITORY TYPE CODE TESTS RESULT OUT OF RANGE REFERENCE UNITS LAB L503.6005 0.4-2.0 mmol/L Normal LACTIC ACID 1.0 Performed By: #### L503.6005 #### [facility] [address] [facility] [place], [place], [address] Observed: 12/20/2017 Status: F Source: [place] RESPIRATORY PANEL 7:09 AM [facility] MOLECULAR REPOSITORY RP PANEL ADENOVIRUS Not Detected [...] acid amplification Performed By: #### M100.638 #### [facility] [address] [place] [address]. [place], [address] Observed: 12/20/2017 Status: F Source: [place] CULTURE, SPUTUM 6:00 AM [facility] REPOSITORY Gram Stain * This is an [...] aureus isolated. Performed By: #### M100.0800 #### [facility] [address] [place], [address] M R STAPH AUREUS Collected: 12/20/2017 Status: F Source: [place] DNA BY PCR 4:50 AM [facility] REPOSITORY Order Comment: Source: NASAL SWAB TYPE CODE TESTS RESULT OUT OF RANGE REFERENCE UNITS LAB L8200.1100 Negative Normal MRSA Negative RESULT Performed By: #### L8200.1000 #### [facility] [address] [place], [address] HISTORY AND PHYSICAL Observed: 12/20/2017 Status: F Source: [place] EXAM 4:19 AM [facility] REPOSITORY [facility] Medical Records Department [address] [place] [address] History and Physical 12/20/17 0412 MR#: [id number] Acct: [id number] Name: MARK SERRANO Rep #: [id number] : 1950 67 From: Kam Lowe MD [...] insufficiency (Chronic) Atherosclerosis of coronary artery of [place] heart without angina pectoris (Chronic) Nicotine abuse [...] EMERGENCY DEPARTMENT Observed: 12/20/2017 Status: F Source: [place] SUMMARY 3:49 AM [facility] REPOSITORY [facility] Medical Records Department [address] [place] [address] Emergency Department Summary 12/20/17 0253 MR#: [id number] Acct: [id number] Name: MARK SERRANO Rep #: [id number] : 1950 67 From: Leti Lopez MD [...] COPD exacerbation This note was generated with [employer] dictation software. It may contain incorrect words, [...] your Primary Care Provider. Call [facility] ([phone]) or report to the closest Emergency Room. Call 911 if necessary. 12/20/17 0349 <Electronically signed by Leti Lopez MD> Date Leti Lopez MD Cosigner Signature (If Indicated): Date CC: Jalen Rodríguez MD Observed: 12/20/2017 Status: F Source: [place] INFLUENZA A+B (RAPID 3:30 AM [facility] SENAIT) REPOSITORY Order Date: 12/20/17 FLU A/B Rapid Negative test results should be confirmed by culture. Order Rapid Viral Culture for Influenzae A+B (508304) if clinically indicated. Influenza Ag, Direct Presumptive NEGATIVE for Influenza A/B Antigen (See Note) Performed By: #### M101.0101 #### [facility] [address] [place], [address] BLOOD GASES BY CPS Collected: 12/20/2017 Status: F Source: [place] 3:16 AM [facility] REPOSITORY TYPE CODE TESTS RESULT OUT OF [...] ISTAT 95 Performed By: #### L9000.0800 #### [facility] Point of Care [address] [place], [place] [address] Observed: 12/20/2017 Status: F Source: [place] CULTURE, BLOOD (WB) 3:00 AM [facility] REPOSITORY BC No growth in 5 days. Performed By: #### M200.1000 #### [facility] [address] [place], [address] CBC W/DIFF, AUTOMATED Collected: 12/20/2017 Status: F Source: [place] 2:55 AM [facility] REPOSITORY TYPE CODE TESTS RESULT OUT OF [...] Lymph 1.14 Performed By: #### L100.0100 #### [facility] [address] [place], [address] BASIC METABOLIC Collected: 12/20/2017 Status: F Source: [place] PROFILE ([facility]) 2:55 AM [facility] REPOSITORY Order Comment: 'TROP' Serial specimen #1, [...] 10 Performed By: #### L500.2500, L501.4010 #### [facility] [address] [place], [place], [address] TROPONIN-I Collected: 12/20/2017 Status: F Source: [place] 2:55 AM [facility] REPOSITORY Order Comment: 'TROP' Serial specimen #1, #2, #3, or #4: 1 TYPE CODE TESTS RESULT OUT OF RANGE REFERENCE UNITS LAB L501.4010 <0.06 ng/mL Normal < 0.02 TROPONIN-I Result Comment: TROPONIN-I EXPECTED VALUES <0.05 NEGATIVE 0.06 - 0.59 AT RISK OF ND > OR = 0.60 SUGGEST ND Performed By: #### L500.2500, L501.4010 #### [facility] [address] [facility] 0[address] BNP,B-TYPE NATRIURETIC Collected: 12/20/2017 Status: F Source: [place] PEPTIDE 2:55 AM [facility] REPOSITORY TYPE CODE TESTS RESULT OUT OF RANGE REFERENCE UNITS LAB L503.6620 0-100 pg/mL Normal B-TYPE 64.4 GRACIELA PEP Performed By: #### L503.6620 #### [facility] [address] [facility] [id number] LACTIC ACID Collected: 12/20/2017 Status: F Source: [place] 2:55 AM [facility] REPOSITORY Order Comment: Yes/No query for Sepsis Lactate Rule Y TYPE CODE TESTS RESULT OUT OF REFERENCE UNITS RANGE LAB L503.6005 0.4-2.0 mmol/L High LACTIC ACID 2.7 Result Comment: Critical Result(s) Called at: 04:11:07 12/20/2017 by: OPAL GARCIA RN ED Performed By: #### L503.6005 #### [facility] [address] [facility] [place], [address] Observed: 12/20/2017 Status: F Source: [place] CULTURE, BLOOD (WB) 2:55 AM [facility] REPOSITORY BC No growth in 5 days. Performed By: #### M200.1000 #### [facility] [address] [facility] [place], [address] CHEST 1 VIEW Observed: 12/20/2017 Status: F Source: [place] (PORTABLE) 2:51 AM [facility] REPOSITORY [facility] Imaging Services [address] [place] [address] Chest 1 View (Portable) MR#: [id number] Acct: [id number] Name: ZACHMARK Birdie Rep #: [id number] : 1950 M 67 From: Tanner Bronson PCP: Care Physician, No Primary Status: PRE ER Study: Chest 1 View (Portable) Date of Exam: 12/20/17 Exam# [id number] Ordering Dr: Leti Lopez MD STUDY: X-RAY [...] No Primary Care Physician; Leti Lopez MD Side Panel Hanger: Signed LIVER PROFILE Collected: 12/10/2017 Status: F Source: [place] 1:40 PM [facility] REPOSITORY TYPE CODE TESTS RESULT OUT OF [...] 0.23 Performed By: #### L500.3400, L500.4100 #### [facility] [address] [place], [address] LIPID PROFILE Collected: 12/10/2017 Status: F Source: [place] 1:40 PM [facility] REPOSITORY TYPE CODE TESTS RESULT OUT OF [...] 10 Performed By: #### L500.3400, L500.4100 #### [facility] [address] [place], [address] CARDIOLOGY VISIT Observed: 11/25/2017 Status: F Source: [place] REPORT 2:42 PM [facility] REPOSITORY [facility] [address] [place] [address] OFFICE VISIT Date of Service: 11/25/17 MR#: [id number] Acct: [id number] Name: MARK SERRANO Rep #: [id number] : 1950 Provider: Aj Jimenez MD Age/Sex: 67/M Location: [facility] Status: Signed HPI 6 M FU: Chief Complaint: Routine follow-up Details: Mr. Serrano is a very pleasant 67-year-old gentleman with a history of Crohn's disease, previous smoker who quit in June 2016, history of GI bleeding, history of kidney stones, stage IV chronic renal sufficiency with a creatinine clearance of 34, who presented initially to [facility] with substernal chest pain and non-ST elevation [...] developed lower GI bleeding and presented to [facility] on 01/18/15. At that time he was emergently fluid resuscitated and transferred to [facility] where he underwent an EGD 2, [...] smoking in June 2016. He presented to [facility] ER on 08/12/16 with abdominal pain [...] Q5M PRN 01/17/15 [History Confirmed 11/25/17] Tiotropium Premium [Spiriva 18 MCG] 1 puff INHALATION DAILY [...] insufficiency (Chronic) Atherosclerosis of coronary artery of [place] heart without angina pectoris (Chronic) Nicotine abuse [...] (2 x 10 mg) PO ACHS [facility] ed ondansetron Discontinued Reason: Order Chang4 mg PO Q8H PRN PRN Nausea [facility] ed Plan Detail Follow Up 6 Months (Tony) Coding Level of Care Code Off vis,est,level 3 Coding Level of Care Code Off vis,est,level 3 11/25/17 4768 <Electronically signed by Aj Jimenez MD> Date Aj Jimenez MD Cosigner Signature: Date (if applicable) CC: ALLERGIES ALLERGIES DATE TYPE / CODE NAME / CODE REACTION SEVERITY SOURCE 10/25/2018 Drug Penicillins/F0010 Other Unknown [facility] Allergy/416 98095(RXNORM) Community 748356([facility] ED CT) Repository 07/06/2018 DRUG PENICILLIN Mental Chg [facility] INGREDI/419 Other [place] 285808([facility] ED CT) /[id number] PENICILLIN [facility] 6([facility] [employer] CT) Repository ENCOUNTERS ENCOUNTERS ADMIT/DISCHARGE ACCOUNT NUMBER ADMITTING ENCOUNTER LOCATION SOURCE CLASS 11/16/2018 [id number] Ambulatory [facility] ding:POLAB3 Repository 11/15/2018 [id number] [facility] ding:CVS Repository 11/11/2018/11/15/19 [id number] Ambulatory [address] Main [place] Repository 11/09/2018 [id number] Ambulatory [facility] ding:LAB Repository 10/26/2018/10/30/19 [id number] Agyepong, Inpatient [address] ding:PCURoom Repository : HPE523Egq: 1 10/26/2018 [id number] Agyepong, Ambulatory BMSBuilding: [place] [facility] Repository 10/26/2018 [id number] Agyepong, Ambulatory BMSBuilding: [place] [facility] Repository 10/26/2018 [id number] Agyepong, Ambulatory BMSBuilding: [place] [facility] Repository 10/26/2018 [id number] Agyepong, Ambulatory BMSBuilding: [place] [facility]MS.[facility] Repository 10/26/2018 [id number] Agyepong, Ambulatory BMSBuilding: [place] [facility]MS.[facility] Repository 10/26/2018 [id number] Agyepong, Ambulatory BMSBuilding: [place] [facility]MS.[facility] Repository 10/26/2018/01/06/20 [id number] Ambulatory BMSBuilding: [place] [facility] Repository 10/04/2018 [id number] Ambulatory [facility] ding:PSN Repository 10/04/2018 [id number] Ambulatory BMSBuilding: [place] [facility] Repository 09/28/2018/09/28/20 [id number] Ambulatory BMSBuilding: [place] 18 BMS.[facility] Repository 07/06/2018/07/13/20 [id number] Jeaneth SANTOS Inpatient [facility] 18 [facility] MEDICAL Repository CENTERBuildi nRoom: 7106Bed: 07/06/2018/07/13/20 [id number] DALIA SANTOS Inpatient [place] 18 [facility] Repository 07/06/2018/07/06/20 [id number] Emergency [address] ding:ED Repository 06/30/2018 [id number] Ambulatory [facility] ding:POLAB3 Repository 06/23/2018/06/23/20 [id number] Ambulatory BMSBuilding: [place] 18 BMS.[facility] Repository 06/16/2018/06/16/20 [id number] Ambulatory BMSBuilding: [facility] 18 BMS.[facility] Repository 06/14/2018 [id number] Ambulatory BMSBuilding: [place] BMS.[facility] Repository 12/30/2017 [id number] Ambulatory [facility] ding:POLAB3 Repository 12/20/2017/12/22/19 [id number] Kam Lowe Inpatient [address] ding:ICURoom Repository : [id number]: 1 12/20/2017 [id number] Kam Lowe Ambulatory BMSBuilding: [place] BMS.[facility] Repository 12/20/2017 [id number] Kam Lowe Ambulatory BMSBuilding: [facility] BMS.CF.[facility] Repository 12/20/2017 [id number] Kam Lowe Ambulatory BMSBuilding: [facility] BMS.[facility] Repository 12/20/2017 [id number] Chrissy, Kam Ambulatory BMSBuilding: [place] BMS.CF.[facility] Repository 12/20/2017 [id number] Chrissy, [facility] Ambulatory BMSBuilding: [place] BMS.[facility] Repository 12/20/2017 [id number] Chrissy, [facility] Ambulatory BMSBuilding: [facility] BMS.CF.[facility] Repository 12/10/2017 [id number] Ambulatory [place] [facility] Hospital ding:LAB Repository 11/25/2017/11/25/19 [id number] Ambulatory BMSBuilding: [place] 18 BMS.[facility] Repository 11/25/2017 [id number] Ambulatory BMSBuilding: [facility]MS[facility] Repository 11/25/2017 [id number] Ambulatory BMSBuilding: [facility] BMS.[facility] Repository PAYERS PAYERS ENCOUNTER GUARANTOR PAYER SUBSCRIBER SOURCE 11/16/2018 MARK E Primary MARK E [place] [id number] E Insurance:MEDICARE HORNERDOB: [facility], PART A [facility] [id number] of New [facility] Hospitals [address]Fpv: Number: Repository [id number] () Date:2018-11-16 11/16/2018 Secondary MARK E [place] [facility] Number: [id number] Hospital [id number] Repository Date:2018-11-16 11/16/2018 Tertiary NOT GIVENUNK [place] Insurance:SELF PAY [facility] Number: Effective Repository Date:2018-11-16 11/15/2018 MARK E Primary MARK E [facility] [id number] E Insurance:MEDICARE HORNERDOB: [facility] PART A [facility] [id number] of New Mexico Hospitals [address]Hhi: Number: Repository [id number] (HP) Date:2018-11-09 11/15/2018 Secondary MARK E [facility] Insurance:MEDICAIDPol [facility]: [facility] icy Number: [id number] Hospital [id number] Repository Date:2018-11-09 11/15/2018 Tertiary NOT GIVENUNK [place] Insurance:SELF PAY [facility] Number: Effective Repository Date:2018-11-09 11/09/2018 MARK E Primary MARK E [facility] [id number] E Insurance:MEDICARE HORNERDOB: [facility], PART A [facility] [id number] of New Mexico Hospitals [address]Dzg: Number: Repository [id number] (HP) Date:2018-11-09 11/09/2018 Secondary MARK E [place] Insurance:MEDICAIDPol [facility] ic Number: [id number] Hospital [id number] Repository Date:2018-11-09 11/09/2018 Tertiary NOT GIVENUNK [place] Insurance:SELF PAY [facility] Number: Effective Repository Date:2018-11-09 10/26/2018 MARK E Primary MARK E [place] [id number] E Insurance:MEDICARE HORNERDOB: [facility], PART A [facility] [id number] of New Mexico Hospitals [address]Vzf: Number: Repository [id number] (HP) Date:2018-10-25 10/26/2018 Secondary MARK E [facility] Insurance:MEDICAIDPol HORNERDOB: [facility] ic Number: [id number] [id number] Repository Date:2018-10-25 10/26/2018 Tertiary NOT GIVENUNK [place] Insurance:SELF PAY [facility] Number: Effective Repository Date:2018-10-25 10/26/2018 MARK E Primary MARK E [facility] [id number] E Insurance:MEDICARE HORNERDOB: [facility] PART A [facility] [id number] Hospital [place] [address]Kho: Number: Repository [id number] (HP) Date:2018-10-25 10/26/2018 Secondary MARK E [place] Insurance:MEDICAIDPol HORNERDOB: [facility] icy Number: [id number] [place] [address] [id number] Repository Date:2018-10-25 10/26/2018 Tertiary NOT GIVENUNK [facility] Insurance:SELF PAY [facility] Number: Effective Repository Date:2018-10-25 10/26/2018 MARK E Primary MARK E [facility] [id number] E Insurance:MEDICARE HORNERDOB: [facility], PART A [facility] [id number] of New Mexico Hospitals [address]Yxf: Number: Repository [id number] (HP) Date:2018-10-25 10/26/2018 Secondary MARK E [facility] Insurance:MEDICAIDPol HORNERDOB: [facility] ic Number: [id number] Hospital [id number] Repository Date:2018-10-25 10/26/2018 Tertiary NOT GIVENUNK [place] Insurance:SELF PAY [facility] Number: Effective Repository Date:2018-10-26 10/26/2018 MARK E Primary MARK E [place] [id number] E Insurance:MEDICARE HORNERDOB: [facility] PART A [facility] [id number] of New Mexico Hospitals [address]Cdq: Number: Repository [id number] (HP) Date:2018-10-25 10/26/2018 Secondary MARK E [place] Insurance:MEDICAIDPol HORNERDOB: [facility] ic Number: [id number] [place] [address] [id number] Repository Date:2018-10-25 10/26/2018 Tertiary NOT GIVENUNK [facility] Insurance:SELF PAY [facility] Number: Effective Repository Date:2018-10-26 10/26/2018 MARK E Primary MARK E [facility] [id number] E Insurance:MEDICARE HORNERDOB: [facility] PART A [facility] [id number] Hospital [place] [address]Mwd: Number: Repository [id number] (HP) Date:2018-10-25 10/26/2018 Secondary MARK E [place] Insurance:MEDICAIDPol HORNERDOB: [facility] ic Number: [id number] [place] [address] [id number] Repository Date:2018-10-25 10/26/2018 Tertiary NOT GIVENUNK [place] Insurance:SELF PAY [facility] Number: Effective Repository Date:2018-10-26 10/26/2018 MARK E Primary MARK E [facility] [id number] E Insurance:MEDICARE HORNERDOB: [facility], PART A [facility] [id number] of New Mexico Hospitals [address]Zqc: Number: Repository [id number] (HP) Date:2018-10-25 10/26/2018 Secondary MARK E [place] Insurance:MEDICAIDPol [facility] ic Number: [id number] Hospital [id number] Repository Date:2018-10-25 10/26/2018 Tertiary NOT GIVENUNK [facility] Insurance:SELF PAY [facility] Number: Effective Repository Date:2018-10-26 10/26/2018 AMRK E Primary MARK E [facility] [id number] E Insurance:MEDICARE HORNERDOB: [facility] PART A [facility] [id number] [address]Ipd: Number: Repository [id number] (HP) Date:2018-10-25 10/26/2018 Secondary MARK E [place] Insurance:MEDICAIDPol HORNERDOB: [facility] ic Number: [id number] Hospital [id number] Repository Date:2018-10-25 10/26/2018 Tertiary NOT GIVENUNK [facility] Insurance:SELF PAY [facility] Number: Effective Repository Date:2018-10-26 10/26/2018 MARK E Primary MARK E [place] [id number] E Insurance:MEDICARE HORNERDOB: [facility] PART A [facility] [id number] Hospital [place] [address]Msj: Number: Repository [id number] (HP) Date:2018-10-25 10/26/2018 Secondary MARK E [facility] Insurance:MEDICAIDPol HORNERDOB: [facility] icy Number: [id number] [place] [address] [id number] Repository Date:2018-10-25 10/26/2018 Tertiary NOT GIVENUNK [facility] Insurance:SELF PAY [facility] Number: Effective Repository Date:2018-10-26 10/04/2018 MARK E Primary MARK E [facility] [id number] E Insurance:MEDICARE HORNERDOB: [facility], PART A [facility] [id number] of New Mexico Hospitals [address]Ejb: Number: Repository [id number] (HP) Date:2018-07-04 10/04/2018 Secondary MARK E [place] Insurance:MEDICAIDPol HORNERDOB: [facility] ic Number: [id number] Hospital [id number] Repository Date:2018-07-04 10/04/2018 Tertiary NOT GIVENUNK [facility] Insurance:SELF PAY [facility] Number: Effective Repository Date:2018-07-04 10/04/2018 MARK E Primary MARK E [place] [id number] E Insurance:MEDICARE HORNERDOB: [facility] PART A [facility] [id number] of New Mexico Hospitals [address]Iwk: Number: Repository [id number] (HP) Date:2018-07-04 10/04/2018 Secondary MARK E [facility] Insurance:MEDICAIDPol HORNERDOB: [facility] ic Number: [id number] Hospital [id number] Repository Date:2018-07-04 10/04/2018 Tertiary NOT GIVENUNK [facility] Insurance:SELF PAY [facility] Number: Effective Repository Date:2018-10-04 09/28/2018 MARK E Primary MARK E [facility] [id number] E Insurance:MEDICARE HORNERDOB: [facility], PART A [facility] [id number] of New Mexico Hospitals [address]Ngf: Number: Repository [id number] (HP) Date:2018-06-23 09/28/2018 Secondary MARK E [facility] Insurance:MEDICAIDPol HORNERDOB: [facility] icy Number: [id number] Hospital [id number] Repository Date:2018-06-23 09/28/2018 Tertiary NOT GIVENUNK [facility] Insurance:SELF PAY [facility] Number: Effective Repository Date:2018-09-21 07/06/2018 MARK E Primary MARK E [facility] HORNERDOB: Insurance:MEDICARE A [facility] E AND olic Number: [id number] [facility]. [facility] [id number] [place] [address]Rds: Date: () 07/06/2018 Secondary MARK E [facility] Insurance:[place] HORNERDOB: [facility] MEDICAIDPolicy [id number] Repository Number: [id number] Date: 07/06/2018 MARK E Primary MARK E [place] [id number] E Insurance:MEDICARE HORNERDOB: [facility] PART A [facility] [id number] of New Mexico Hospitals [address]Zhv: Number: Repository [id number] () Date:2018-07-06 07/06/2018 Secondary MARK E [place] Insurance:MEDICAIDPol [facility] ic Number: [id number] Hospital [id number] Repository Date:2018-07-06 07/06/2018 Tertiary NOT GIVENUNK [place] Insurance:SELF PAY [facility] Number: Effective Repository Date:2018-07-06 06/30/2018 MARK E Primary MARK E [facility] [id number] E Insurance:MEDICARE HORNERDOB: [facility] PART A [facility] [id number] [place] [address]Kdo: Number: Repository [id number] () Date:2018-06-30 06/30/2018 Secondary MARK E [facility] Insurance:MEDICAIDPol [facility] ic Number: [id number] Hospital [id number] Repository Date:2018-06-30 06/30/2018 Tertiary NOT GIVENUNK [place] Insurance:SELF PAY [facility] Number: Effective Repository Date:2018-06-30 06/23/2018 MARK E Primary MARK E [facility] [id number] E Insurance:MEDICARE HORNERDOB: [facility] PART A [facility] [id number] of New Mexico Hospitals [address]Tsm: Number: Repository [id number] (HP) Date:2018-06-17 06/23/2018 Secondary MARK E [facility] Insurance:MEDICAIDPol HORNERDOB: [facility] icy Number: [id number] Hospital [id number] Repository Date:2018-06-17 06/23/2018 Tertiary NOT GIVENUNK [facility] Insurance:SELF PAY [facility] Number: Effective Repository Date:2018-06-17 06/16/2018 MARK E Primary MARK E [place] [id number] E Insurance:MEDICARE HORNERDOB: [facility] PART A [facility] [id number] of New Mexico Hospitals [address]Fbo: Number: Repository [id number] (HP) Date:2017-11-25 06/16/2018 Secondary MARK E [place] Insurance:MEDICAIDPol [facility] ic Number: [id number] Hospital [id number] Repository Date:2017-11-25 06/16/2018 Tertiary NOT GIVENUNK [place] Insurance:SELF PAY [facility] Number: Effective Repository Date:2018-06-16 06/14/2018 MARK E Primary MARK E [place] [id number] E Insurance:MEDICARE HORNERDOB: [facility], PART A [facility] [id number] of New Mexico Hospitals [address]Fnp: Number: Repository [id number] (HP) Date:2018-06-14 06/14/2018 Secondary MARK E [facility] Insurance:MEDICAIDPol HORNERDOB: [facility] ic Number: [id number] Hospital [id number] Repository Date:2018-06-14 06/14/2018 Tertiary NOT GIVENUNK [place] Insurance:SELF PAY [facility] Number: Effective Repository Date:2018-06-14 12/30/2017 MARK E Primary MARK E [facility] [id number] E Insurance:MEDICARE HORNERDOB: [facility], PART A [facility] [id number] of New Mexico Hospitals [address]Ztp: Number: Repository [id number] (HP) Date:2017-12-30 12/30/2017 Secondary MARK E [facility] Insurance:MEDICAIDPol HORNERDOB: [facility] icy Number: [id number] Hospital [id number] Repository Date:2017-12-30 12/30/2017 Tertiary NOT GIVENUNK [place] Insurance:SELF PAY [facility] Number: Effective Repository Date:2017-12-30 12/20/2017 MARK E Primary MARK E [place] [id number] E Insurance:MEDICARE HORNERDOB: [facility], PART A [facility] [id number] Hospital [place] [address]Byo: Number: Repository [id number] (HP) Date:2017-12-20 12/20/2017 Secondary MARK E [facility] Insurance:MEDICAIDPol HORNERDOB: [facility] ic Number: [id number] Hospital [id number] Repository Date:2017-12-20 12/20/2017 Tertiary NOT GIVENUNK [facility] Insurance:SELF PAY [facility] Number: Effective Repository Date:2017-12-20 12/20/2017 MARK E Primary MARK E [facility] [id number] E Insurance:MEDICARE HORNERDOB: [facility], PART A [facility] [id number] [place] [address]Pqg: Number: Repository [id number] (HP) Date:2017-12-20 12/20/2017 Secondary MARK E [facility] Insurance:MEDICAIDPol HORNERDOB: [facility] ic Number: [id number] Hospital [id number] Repository Date:2017-12-20 12/20/2017 Tertiary NOT GIVENUNK [facility] Insurance:SELF PAY [facility] Number: Effective Repository Date:2017-12-20 12/20/2017 MARK E Primary MARK E [facility] [id number] Insurance:MEDICARE HORNERDOB: [facility], PART A [facility] [id number] [facility] [place] [address]Yrg: Number: Repository [id number] (HP) Date:2017-12-20 12/20/2017 Secondary MARK E Joseph Insurance:MEDICAIDPol HORNERDOB: [facility] ic Number: [id number] Hospital [id number] Repository Date:2017-12-20 12/20/2017 Tertiary NOT GIVENUNK [facility] Insurance:SELF PAY [facility] Number: Effective Repository Date:2017-12-20 12/20/2017 MARK E Primary MARK E Joseph [id number] Insurance:MEDICARE HORNERDOB: [facility] PART A [facility] [id number] [facility] [address]Czb: Number: Repository [id number] (HP) Date:2017-12-20 12/20/2017 Secondary MARK E [facility] Insurance:MEDICAIDPol [facility] ic Number: [id number] Hospital [id number] Repository Date:2017-12-20 12/20/2017 Tertiary NOT GIVENUNK Joseph Insurance:SELF PAY [facility] Number: Effective Repository Date:2017-12-20 12/20/2017 MARK E Primary MARK E Joseph [id number] Insurance:MEDICARE HORNERDOB: [facility] PART A [facility] [id number] Hospital [place] [address]Xmr: Number: Repository [id number] (HP) Date:2017-12-20 12/20/2017 Secondary MARK E [facility] Insurance:MEDICAIDPol [facility] Number: [id number] Hospital [id number] Repository Date:2017-12-20 12/20/2017 Tertiary NOT GIVENUNK [facility] Insurance:SELF PAY [facility] Number: Effective Repository Date:2017-12-20 12/20/2017 MARK E Primary MARK E Joseph [id number] Insurance:MEDICARE HORNERDOB: [facility] PART A [facility] [id number] of New Mexico Hospitals [address]Jdl: Number: Repository [id number] (HP) Date:2017-12-20 12/20/2017 Secondary MARK E [facility] Insurance:MEDICAIDPol [facility] ic Number: [id number] [id number] Repository Date:2017-12-20 12/20/2017 Tertiary NOT GIVENUNK Joseph Insurance:SELF PAY [facility] Number: Effective Repository Date:2017-12-20 12/20/2017 MARK E Primary MARK E [facility] [id number] E Insurance:MEDICARE HORNERDOB: [facility] PART A [facility] [id number] of New Mexico Hospitals [address]Xjc: Number: Repository [id number] (HP) Date:2017-12-20 12/20/2017 Secondary MARK E Joseph Insurance:MEDICAIDPol HORNERDOB: [facility] ic Number: [id number] Hospital [id number] Repository Date:2017-12-20 12/20/2017 Tertiary NOT GIVENUNK [facility] Insurance:SELF PAY [facility] Number: Effective Repository Date:2017-12-20 12/10/2017 MARK E Primary MARK E Joseph [id number] E Insurance:MEDICARE HORNERDOB: [facility] PART A [facility] [id number] of New Mexico Hospitals [address]Zal: Number: Repository [id number] (HP) Date:2017-12-10 12/10/2017 Secondary MARK E [facility] Insurance:MEDICAIDPol HORNERDOB: [facility] ic Number: [id number] Hospital [id number] Repository Date:2017-12-10 12/10/2017 Tertiary NOT GIVENUNK [facility] Insurance:SELF PAY [facility] Number: Effective Repository Date:2017-12-10 11/25/2017 MARK E Primary MARK E [facility] [id number] Insurance:MEDICARE HORNERDOB: [facility] PART A [facility] [id number]. Joseph's [facility], Number: Repository [place] [address]Uic: [id number] Date:2017-09-28 () 11/25/2017 Secondary MARK E Joseph Insurance:MEDICAIDPol HORNERDOB: [facility] ic Number: [id number] Hospital [id number] Repository Date:2017-09-28 11/25/2017 Tertiary NOT GIVENUNK Joseph Insurance:SELF PAY [facility]: Effective Repository Date:2017-09-28 11/25/2017 Mark E Primary Mark E [facility] [id number] Insurance:MEDICAIDPol HornerDOB: [facility] icy Number: [id number] [facility], [id number] Repository [place] [address]Kae: Date:2017-11-25 () 11/25/2017 Secondary Mark E Joseph Insurance:MEDICARE HornerDOB: Community PART A [facility] [id number] Hospital Number: Repository [id number] Date:2017-11-25 11/25/2017 Tertiary NOT GIVENUNK Joseph Insurance:SELF PAY [facility] Number: Effective Repository Date:2017-11-25 11/25/2017 Mark E Primary Mark E Joseph [id number] [facility] Insurance:MEDICAIDPol [facility] Number: [id number] Memorial Hospital, [id number] Repository [place] [address]Psz: Date:2017-11-25 () 11/25/2017 Secondary Mark E [facility] Insurance:MEDICARE HornerDOB: Community PART A [facility] [id number] Hospital Number: Repository [id number] Date:2017-11-25 11/25/2017 Tertiary NOT GIVENUNK Joseph Insurance:SELF PAY [facility] Number: Effective Repository Date:2017-11-25
== END ==
PROVIDERS: Family Provider Family Medicine Geriatric Medicine; PCP Family Medicine Geriatric Medicine; Visit Provider Family Medicine Geriatric Medicine
DX: R06.02 Shortness of breath (principal)
CPT/HCPCS: 36415; 80048; 85025

== ENCOUNTER → 2019-01-02 13:31 | Outpatient (CLI) | payer MEDICARE, MEDICAID, SELFPAY ==
[2018-12-26 13:54] VITALS: BMI 15.9
[2019-01-02 17:23] LABS: Absolute Lymphocyte Count 0.98 X10^3/ul (0.83-4.51); Absolute Neutrophil Count 2.4 X10^3/uL (2.0-7.7); Basophil# 0.02 X10^3/uL; Basophil% 0.5 % (0-1); Eosinophil# 0.06 X10^3/uL; Eosinophils% 1.6 % (0-5); Hematocrit 34.1 % (40-54); Hemoglobin 10.8 g/dl (13.0-16.5); Lymphocyte # 0.98 X10^3/ul (4.0); Lymphocyte % 25.8 % (19-41); Mean Corp Hgb Conc 31.7 g/gl (32-36); Mean Corpuscular Hgb 28.5 pg (27.0-32.0); Mean Platelet Vol. 9.8 fl (6.2-12.0); Monocyte% 7.9 % (0-10); Neutrophil # 2.44 X10^3/uL (2.7-7.7); Neutrophil % 64.2 % (47-70); Platelet Count 210 K/mm3 (150-450); RBC Distribution Width CV 14.5 % (11.6-14.6); RBC Distribution Width SD 47.3 fl (35.1-43.9); Red Blood Count 3.79 M/mm3 (4.6-6.2); White Blood Count 3.8 K/mm3 (4.4-11.0)
[2019-01-02 17:26] LABS: POSITIVE COUNT NO; POSITIVE DIFFERENTIAL NO; POSITIVE MORPHOLOGY NO
[2019-01-02 17:39] LABS: AST(SGOT) 18 U/L (15-37); Alanine Aminotransfer ALT/SGPT 19 U/L (16-61); Albumin, Serum 3.3 g/dL (3.2-5.0); Alkaline Phosphatase 93 U/L (45-117); Anion Gap 9 (5-15); BUN 17 mg/dL (7-18); BUN/Creat Ratio 9.9 RATIO (10-20); Calcium,Total 8.9 mg/dL (8.5-10.1); Chloride 105 mmol/L (98-107); Creatinine, Serum 1.72 mg/dL (0.70-1.30); EST Glomerular Filtration Rate 42 mL/min (>60); Est Glom Filt Rate - Afr Amer 51 mL/min (>60); Globulin 3.4 g/dL (2.2-4.2); Glucose 95 mg/dL (74-106); PSA,Total - Annual Screen 1.87 ng/mL (0.00-4.00); Potassium 3.8 mmol/L (3.5-5.1); Protein, Total 6.7 g/dL (6.4-8.2); Sodium Level 144 mmol/L (136-145); Thyroid Stim Hormone (TSH) 0.59 uIU/mL (0.358-3.74)
== END ==
PROVIDERS: Family Provider Family Medicine Geriatric Medicine; PCP Family Medicine Geriatric Medicine; Visit Provider Family Medicine Geriatric Medicine
DX: I10 Essential (primary) hypertension (principal); E11.9 Type 2 diabetes mellitus without complications; Z12.5 Encounter for screening for malignant neoplasm of prostate
CPT/HCPCS: 36415; 80053; 84153; 84443; 85025; G0103

== ENCOUNTER → 2019-01-06 13:21 | Outpatient (CLI) | payer MEDICARE, SELFPAY ==
[2018-12-26 13:54] VITALS: BMI 15.9
--- NOTE | 2019-01-06 13:27 | CT_ITS ---
STUDY: LOW DOSE CT LUNG CANCER SCREENING REASON FOR EXAM: Male, 68 years old. Lung screening, tobacco history, 50+ pack year history RADIATION DOSAGE (If Supplied By Facility): CTDIvol = ( 1.70 ) mGy, DLP = ( 62.31 ) mGycm TECHNIQUE: No contrast was administered. Low dose technique was utilized (average mAS-38 and kVp 120). 1.25 mm axial source images with a slice interval of 1.25-mm were reconstructed in lung windows. 2.5 mm axial source images with a slice interval of 2.5-mm were reconstructed in lung windows. 5.0 mm axial source images with a slice interval of 5.0-mm were reconstructed in soft tissue windows. Nodule measured using lung windows on PACS and/or independent workstation with automated measurement of minimum and maximum diameter. Nodule measurement reported as average diameter rounded to the nearest whole number. Growth is defined as an increase ins size of greater than 1.5 mm. COMPARISON: None. NODULES: No pulmonary nodules are localized groundglass opacities. Emphysema: Centrilobular emphysema with hyperinflation. Endobronchial lesion: None Aorta: Scattered atherosclerosis. Aneurysmal enlargement of the ascending thoracic aorta with axial diameter measuring 4.3 x 4.1 cm. Coronary arteries: Coronary artery atherosclerosis noted. Heart: Not enlarged Pulmonary artery: Mildly enlarged central and segmental pulmonary artery suggesting pulmonary hypertension. Mediastinal nodes: No mediastinal or hilar adenopathy. Other chest and abdominal findings: Adrenal glands are not enlarged. CT/Low Dose CT Lung Screening IMPRESSION: 1. Lung-RADS category 1 - Continue annual screening with LDCT in 12 months. 2. Aneurysmal enlargement of the ascending thoracic aorta measuring up to 4.3 cm in axial dimension. 3. Atherosclerosis including coronary arteries 4. Mildly enlarged central pulmonary artery suggesting pulmonary hypertension. 5. Emphysema. IMPORTANT NOTES FOR USE: ACR Lung-RADS Version 1.0 Assessment Categories Release Date: February 19, 2014 Category: Coded 0-4 bases on nodule(s) with highest degree of suspicion. Negative screen is defined as categories 1 and 2; a positive screen is defined as categories 3 and 4. Category 3 and 4A nodules that are unchanged on interval CT should be coded as category 2, and individuals returned to screening in 12 months. Category 4X: Category 3 or 4 nodules with additional imaging findings that increase the suspicion of lung cancer, such as spiculation, GGN that doubles in size in 1 year, enlarged lymph notes, etc. Category Modifiers: S (significant finding unrelated to lung cancer) and C (prior history of treated lung cancer) may be added to the 0-4 Lung-RADS Electronically Signed: Geovanny Crockett MD at 10:12 EDT , Service support ,
== END ==
PROVIDERS: Family Provider Family Medicine Geriatric Medicine; PCP Family Medicine Geriatric Medicine; Referring Provider Family Medicine Geriatric Medicine; Visit Provider Family Medicine Geriatric Medicine
DX: Z87.891 Personal history of nicotine dependence (principal); Z12.2 Encounter for screening for malignant neoplasm of respiratory organs
CPT/HCPCS: G0297

== ENCOUNTER → 2019-01-09 08:32 | Outpatient (CLI) | payer MEDICARE, SELFPAY ==
[2018-12-26 13:54] VITALS: BMI 15.9
[2019-01-09 10:03] LABS: AST(SGOT) 16 U/L (15-37); Alanine Aminotransfer ALT/SGPT 17 U/L (16-61); Albumin, Serum 3.3 g/dL (3.2-5.0); Alkaline Phosphatase 90 U/L (45-117); Bilirubin, Direct 0.11 mg/dL (0.00-0.30); Cholesterol 149 mg/dL (200); Globulin 3.2 g/dL (2.2-4.2); High Density Lipoprotein 64 mg/dL; Protein, Total 6.5 g/dL (6.4-8.2); Triglycerides 96 mg/dL; Very Low Density Lipoprotein 19 mg/dL (5-40)
== END ==
PROVIDERS: Family Provider Family Medicine Geriatric Medicine; PCP Family Medicine Geriatric Medicine; Referring Provider Internal Medicine Cardiovascular Disease; Visit Provider Internal Medicine Cardiovascular Disease
DX: I25.10 Atherosclerotic heart disease of native coronary artery without angina pectoris (principal)
CPT/HCPCS: 36415; 80061; 80076

== ENCOUNTER → 2019-07-03 | Outpatient (CLI) | payer SELFPAY ==
[2019-05-16 10:06] VITALS: BMI 16.9
[2019-07-03 17:22] LABS: Absolute Lymphocyte Count 0.49 X10^3/uL (0.83-4.51); Absolute Neutrophil Count 3.3 X10^3/uL (2.0-7.7); Basophil# 0.01 X10^3/uL; Basophil% 0.2 % (0-1); Eosinophil# 0.04 X10^3/uL; Hematocrit 35.4 % (40-54); Lymphocyte # 0.49 X10^3/ul (4.0); Lymphocyte % 11.9 % (19-41); Mean Corp Hgb Conc 31.1 g/dL (32-36); Mean Corpuscular Hgb 27.6 pg (27.0-32.0); Mean Corpuscular Volume 88.9 fL (80-94); Mean Platelet Vol. 10.8 fl (6.2-12.0); Monocyte# 0.25 X10^3/uL; Monocyte% 6.1 % (0-10); NRBC Flagged by Analyzer 0 % (0-5); Neutrophil # 3.32 X10^3/uL (2.7-7.7); Neutrophil % 80.6 % (47-70); POSITIVE DIFFERENTIAL YES; Platelet Count 158 K/mm3 (150-450); RBC Distribution Width CV 13.5 % (11.6-14.6); RBC Distribution Width SD 44.3 fl (35.1-43.9); Red Blood Count 3.98 M/mm3 (4.6-6.2); White Blood Count 4.1 K/mm3 (4.4-11.0)
[2019-07-03 17:31] LABS: Differential Indicated SCAN CRITERIA MET
[2019-07-03 17:40] LABS: Vitamin D,25 Hydroxy 18.9 ng/mL (29.95-100.01)
[2019-07-03 17:45] LABS: ALB/GLOB Ratio 1.3 RATIO (0.9-2.4); AST(SGOT) 20 U/L (15-37); Alanine Aminotransfer ALT/SGPT 17 U/L (16-61); Albumin, Serum 4.1 g/dL (3.2-5.0); Alkaline Phosphatase 93 U/L (45-117); Anion Gap 7 (5-15); BUN 35 mg/dL (7-18); Calcium,Total 9.1 mg/dL (8.5-10.1); Chloride 102 mmol/L (98-107); Creatinine, Serum 2.69 mg/dL (0.70-1.30); EST Glomerular Filtration Rate 25 mL/min (>60); Est Glom Filt Rate - Afr Amer 30 mL/min (>60); Globulin 3.2 g/dL (2.2-4.2); Glucose 112 mg/dL (74-106); Potassium 4.6 mmol/L (3.5-5.1); Protein, Total 7.3 g/dL (6.4-8.2); Sodium Level 141 mmol/L (136-145); Thyroid Stim Hormone (TSH) 0.99 uIU/mL (0.358-3.74)
[2019-07-03 17:50] LABS: Differential Comment SCANNED
[2019-07-04 12:25] LABS: Pathologist Review Reviewed
== END | disposition home or self-care (01) ==
LOC: POLAB3 13:29
PROVIDERS: Family Provider Family Medicine Geriatric Medicine; PCP Family Medicine Geriatric Medicine; Visit Provider Family Medicine Geriatric Medicine
DX: E55.9 Vitamin D deficiency, unspecified (principal); I10 Essential (primary) hypertension
CPT/HCPCS: 36415; 80053; 82306; 84443; 85025

== ENCOUNTER → 2021-01-06 10:56 | Outpatient (CLI) | payer MEDICARE, SELFPAY ==
[2020-02-12 08:34] VITALS: BMI 19.1
[2021-01-06 12:18] LABS: Absolute Lymphocyte Count 0.87 X10^3/uL (0.83-4.51); Absolute Neutrophil Count 6.7 X10^3/uL (2.0-7.7); Eosinophil# 0.01 X10^3/uL; Eosinophils% 0.1 % (0-5); Hematocrit 36.3 % (40-54); Hemoglobin 10.9 g/dL (13.0-16.5); Lymphocyte # 0.87 X10^3/ul (4.0); Lymphocyte % 10.7 % (19-41); Mean Corpuscular Hgb 29.2 pg (27.0-32.0); Mean Corpuscular Volume 97.3 fL (80-94); Mean Platelet Vol. 11.2 fl (6.2-12.0); Monocyte% 6.1 % (0-10); NRBC Flagged by Analyzer 0 % (0-5); Neutrophil # 6.73 X10^3/uL (2.7-7.7); Neutrophil % 82.6 % (47-70); Platelet Count 170 K/mm3 (150-450); RBC Distribution Width CV 14.6 % (11.6-14.6); Red Blood Count 3.73 M/mm3 (4.6-6.2); White Blood Count 8.2 K/mm3 (4.4-11.0)
[2021-01-06 12:31] LABS: Vitamin D,25 Hydroxy 10.8 ng/mL
[2021-01-06 12:37] LABS: ALB/GLOB Ratio 1.2 RATIO (0.9-2.4); AST(SGOT) 17 U/L (15-37); Alanine Aminotransfer ALT/SGPT 23 U/L (16-61); Albumin, Serum 3.6 g/dL (3.2-5.0); Alkaline Phosphatase 58 U/L (45-117); Anion Gap 5 (5-15); BUN 33 mg/dL (7-18); BUN/Creat Ratio 13.9 RATIO (10-20); Calcium,Total 8.7 mg/dL (8.5-10.1); Chloride 103 mmol/L (98-107); Creatinine, Serum 2.38 mg/dL (0.70-1.30); EST Glomerular Filtration Rate 29 mL/min (>60); Est Glom Filt Rate - Afr Amer 35 mL/min (>60); Globulin 3.1 g/dL (2.2-4.2); Glucose 125 mg/dL (74-106); Potassium 4.2 mmol/L (3.5-5.1); Protein, Total 6.7 g/dL (6.4-8.2); Sodium Level 141 mmol/L (136-145)
== END ==
PROVIDERS: PCP Family Medicine Geriatric Medicine; Visit Provider Family Medicine Geriatric Medicine
DX: E11.9 Type 2 diabetes mellitus without complications (principal); E55.9 Vitamin D deficiency, unspecified; I10 Essential (primary) hypertension
CPT/HCPCS: 36415; 80053; 82306; 84443; 85025